=== PATIENT | male | born 1975 | race African-American/Black ===

== ENCOUNTER → 2016-03-22 | Outpatient (CLI) | payer OTHER ==
--- NOTE | 2016-03-22 15:01 | REP ---
Clinical: Syncope. Technique: Grant scale and color Doppler evaluation using linear high frequency transducer Findings: Two-dimensional grant scale and color images demonstrate normal arterial lumen with laminar flow and no appreciable narrowing. Color Doppler interrogation demonstrates normal arterial wave patterns and velocities with no significant spectral broadening. Normal flow direction is appreciated in the bilateral vertebral arteries. RIGHT (cm/s) LEFT (cm/s) ICA peak systolic velocity 99.0 70.6 ICA diastolic velocity 34.0 38.2 ECA peak systolic velocity 78.6 93.2 CCA peak systolic velocity 127.2 111.7 ICA/CCA ratio 0.70 0.63 Impression: No hemodynamically significant areas of narrowing or stenosis appreciated. Based on set standards narrowing falls within the normal range. Signed by Beto Reynolds MD 03/22/2016 02:03 P
== END | disposition home or self-care (01) ==
LOC: M RAD 13:23
PROVIDERS: ATTEND Physician Assistant Medical
DX: R55 Syncope and collapse (principal)

== ENCOUNTER → 2016-04-07 | Outpatient (CLI) | payer OTHER ==
[~2016-04-07] MED LIST: ADV100INH INH; ALBU17IN INH; AMOX500T PO; ASPI81CH32 PO; BENZ100C5 PO; CHLO125TA PO; COMBAER6 INH; HYDR-3713 PO; IBUP-1114 PO; ISON300T4 PO; LISI-538 PO; MAPA500C PO; NICO7DIS23 TD; OMEP40CA2 PO; SUCR1TAB56 PO; VARE05TA PO; VITA50TA43 PO; nicotine gum XX
[2016-04-07 19:08] LABS: ALBUMIN 4.1 GM/DL (3.2-5.2); ALBUMIN/GLOBULIN RATIO 1.14 (1.00-1.93); ALKALINE PHOSPHATASE 47 U/L (45-117); ALT/SGPT 57 U/L (12-78); AST/SGOT 31 U/L (15-37); BILIRUBIN,DIRECT < 0.1 MG/DL (0.0-0.2); BILIRUBIN,TOTAL 0.2 MG/DL (0.2-1.0); TOTAL PROTEIN 7.7 GM/DL (6.4-8.2)
== END | disposition home or self-care (01) ==
LOC: M WUC 11:54
PROVIDERS: ATTEND Physician Assistant Medical
DX: R76.11 Nonspecific reaction to tuberculin skin test without active tuberculosis (principal)

== ENCOUNTER → 2016-04-13 | Outpatient (CLI) | payer OTHER ==
[~2016-04-13] VITALS: Ht 182.9 cm; Wt 81.6 kg
[~2016-04-13] MED LIST changes: +LIDOCAINE 2% INJ 100 MG/5 ML SDV (FOR ANES.) As Ordered ONE; +NS 1,000 ML IV SCH; +PROPOFOL 200 MG/20 ML VIAL As Ordered ONE
--- NOTE | 2016-04-13 13:12 | ROOR ---
Patient Name: Margie Lane Procedure Date: 04/13/2016 12:59 PM Date of : 1975 Age: 40 Room: [facility] Gender: Male Note Status: Finalized Procedure: Upper GI endoscopy Indications: Epigastric abdominal pain, Suspected esophageal reflux Providers: Can BELL MD Referring MD: CHEVY GUSTAFSON MD Requesting Provider: Medicines: Monitored Anesthesia Care Complications: No immediate complications. Long, compliant otherwise normal stomach Procedure: Pre-Anesthesia Assessment: - The heart rate, respiratory rate, oxygen saturations, blood pressure, adequacy of pulmonary ventilation, and response to care were monitored throughout the procedure. The Endoscope was introduced through the mouth, and advanced to the second part of duodenum. The upper GI endoscopy was accomplished without difficulty. The patient tolerated the procedure well. Findings: Very small (insignificant) Hiatal Hernia. The esophagus was normal. The stomach was normal. The examined duodenum was normal. (long, compliant, but otherwise normal stomach) Impression: - Very small (insignificant) Hiatal Hernia. - Normal esophagus. - Normal stomach. - Normal examined duodenum. - No specimens collected. Recommendation: - Continue present medications. - Observe patient's clinical course. - Follow an antireflux regimen. Can Bell MD Can BELL MD 04/13/2016 1:12:23 PM This report has been signed electronically. Number of Addenda: 0 Note Initiated On: 04/13/2016 12:59 PM Estimated Blood Loss: Estimated blood loss: none. Estimated blood loss: none.
[2016-04-13 13:45] VITALS: BP 145/100
== END ==
LOC: M OPP 12:30
PROVIDERS: ATTEND Internal Medicine Gastroenterology
DX: R10.13 Epigastric pain (principal); I10 Essential (primary) hypertension; J45.909 Unspecified asthma, uncomplicated; K21.9 Gastro-esophageal reflux disease without esophagitis; R76.11 Nonspecific reaction to tuberculin skin test without active tuberculosis; Z79.899 Other long term (current) drug therapy

== ENCOUNTER → 2016-04-19 | Outpatient (REF) | payer OTHER ==
[~2016-04-19] MED LIST changes: -LIDOCAINE 2% INJ 100 MG/5 ML SDV (FOR ANES.) As Ordered ONE; -NS 1,000 ML IV SCH; -PROPOFOL 200 MG/20 ML VIAL As Ordered ONE
[2016-04-19 16:49] LABS: ALBUMIN 4.8 GM/DL (3.2-5.2); ALBUMIN/GLOBULIN RATIO 1.2 (1.00-1.93); BILIRUBIN,DIRECT 0.1 MG/DL (0.0-0.2); BILIRUBIN,TOTAL 0.4 MG/DL (0.2-1.0); TOTAL PROTEIN 8.8 GM/DL (6.4-8.2)
== END | disposition home or self-care (01) ==
LOC: M SFHCPLAZ 12:32
PROVIDERS: ATTEND Physician Assistant Medical
DX: R76.11 Nonspecific reaction to tuberculin skin test without active tuberculosis (principal)

== ENCOUNTER → 2016-04-29 | Outpatient (CLI) | payer OTHER ==
[2016-04-29 20:21] LABS: MICROSCOPIC INDICATED? MAN NO (NO)
== END | disposition home or self-care (01) ==
LOC: M WUC 18:16
PROVIDERS: ATTEND Internal Medicine Cardiovascular Disease
DX: I49.3 Ventricular premature depolarization (principal); I10 Essential (primary) hypertension

== ENCOUNTER → 2016-04-30 | Outpatient (REF) | payer OTHER ==
[2016-04-30 12:39] LABS: ALBUMIN 4.8 GM/DL (3.2-5.2); ANION GAP 10 MEQ/L (8-16); BLOOD UREA NITROGEN 17 MG/DL (7-18); CALCIUM LEVEL 9.6 MG/DL (8.5-10.1); CARBON DIOXIDE LEVEL 29 MEQ/L (21-32); CHLORIDE LEVEL 97 MEQ/L (98-107); CREATININE FOR GFR 1.19 MG/DL (0.70-1.30); GLOMERULAR FILTRATION RATE > 60.0 (>60); GLUCOSE, FASTING 108 MG/DL (70-105); MAGNESIUM LEVEL 2.1 MG/DL (1.8-2.4); PHOSPHORUS LEVEL 3.2 MG/DL (2.5-4.9); POTASSIUM SERUM 4.3 MEQ/L (3.5-5.1); SODIUM LEVEL 136 MEQ/L (136-145)
== END | disposition home or self-care (01) ==
LOC: M WUC 11:52
PROVIDERS: ATTEND Internal Medicine Cardiovascular Disease
DX: I49.3 Ventricular premature depolarization (principal); I10 Essential (primary) hypertension

== ENCOUNTER → 2016-05-03 | Outpatient (REF) | payer OTHER | LOC: M SFHCPLAZ 08:21 | PROVIDERS: ATTEND Physician Assistant Medical | DX: Z53.8 Procedure and treatment not carried out for other reasons (principal) ==

== ENCOUNTER 2016-05-06 13:52 | Emergency (ER) | payer OTHER ==
[2016-05-06 15:12] LABS: BASO % 0.5 % (0.0-1.0); EOS # 0.2 K/mm3 (0.0-0.50); EOS % 2.1 % (0.0-3.0); LARGE UNSTAINED CELL # 0.2 K/mm3 (0.0-0.4); LARGE UNSTAINED CELL % 2.9 % (0.0-4.0); LYMPH # 2.6 K/mm3 (1.5-4.5); LYMPH % 36.4 % (24.0-44.0); MEAN CORPUSCULAR HEMOGLOBIN 30.5 pg (27.0-33.0); MEAN CORPUSCULAR HGB CONC 34.5 g/dl (32.0-36.5); MEAN CORPUSCULAR VOLUME 88.5 fl (80.0-96.0); MONO # 0.5 K/mm3 (0.0-0.8); MONO % 7.7 % (0.0-5.0); NEUTROPHILS # 3.6 K/mm3 (1.8-7.7); NEUTROPHILS % 50.5 % (36.0-66.0); PLATELET COUNT, AUTOMATED 195 k/mm3 (150-450); RED CELL DISTRIBUTION WIDTH 12.4 % (11.5-14.5)
[2016-05-06 15:28] LABS: ANION GAP 9 MEQ/L (8-16); BLOOD UREA NITROGEN 17 MG/DL (7-18); CALCIUM LEVEL 9.4 MG/DL (8.5-10.1); CARBON DIOXIDE LEVEL 28 MEQ/L (21-32); CHLORIDE LEVEL 103 MEQ/L (98-107); CREATININE FOR GFR 1.72 MG/DL (0.70-1.30); FREE T4 0.91 NG/DL (0.76-1.46); GLOMERULAR FILTRATION RATE 57.4 (>60); GLUCOSE, FASTING 93 MG/DL (70-105); MAGNESIUM LEVEL 2.2 MG/DL (1.8-2.4); PHOSPHORUS LEVEL 3.6 MG/DL (2.5-4.9); POTASSIUM SERUM 3.9 MEQ/L (3.5-5.1); SODIUM LEVEL 140 MEQ/L (136-145)
--- NOTE | 2016-05-06 16:08 | EDDOCDS ---
Nurse's Notes [facility] Name: Margie Lane Age: 40 yrs Sex: Male : 1975 Arrival Date: 05/06/2016 Time: 13:52 Bed 15 Private MD: Nelida Marquis R Diagnosis: Syncope and collapse Presentation: 05/06 14:01 Presenting complaint: Patient states: last night while riding in the back of a car got j sick to stomach and sweaty then passed out for about 15 minutes. being worked up for cardiac symptoms by Dr Toribio , placed on a holter monitor today.has chest pain every day. Adult Sepsis Screening: The patient does not have new or worsening altered mentation. Patient's respiratory rate is less than 22. Systolic blood pressure is greater than 100. Patient has a qSOFA score of 0- Negative Sepsis Screen. Suicide/Homicide risk assessment- the patient denies having any suicidal and/or homicidal ideations and does not present with any other emotional, behavioral or mental health complaints. Status: Patient is not a director of creative services or dependent. Transition of care: patient was not received from another setting of care. 14:01 Acuity: RAEANN Level 3 [facility] 14:01 Method Of Arrival: Walkin/Carried/Asstd [facility] Triage Assessment: 14:17 General: Appears in no apparent distress, Behavior is appropriate for age, pleasant. kpj Pain: Denies pain. Pt Declines HIV testing. Neurological: Level of Consciousness is awake, alert, Oriented to person, place, time, Gait is steady, Speech is normal, Denies dizziness, headache. Respiratory: Airway is patent Respiratory effort is even, unlabored, Respiratory pattern is regular, symmetrical. Derm: Skin is pink, warm & dry. Historical: - Allergies: No known drug Allergies; - Home Meds: 1. acetaminophen 500 mg Oral tab 2 tabs every 4 hours as needed (Last dose: 05/05/2016) 2. Combivent 20-100 mcg/actuation Inhl three times a day (Last dose: 05/06/2016 08:00) 3. aspirin 81 mg Oral tab 1 tab once daily (Last dose: 05/06/2016 08:00) 4. good sense nicotine 4mg as needed (Last dose: 05/05/2016) 5. nicotine 7 mg/24 hr TD pt24 1 patch once daily does not have one on today 6. albuterol sulfate 90 mcg/actuation Inhl aepb 2 puffs every 4 hours as needed (Last dose: 05/05/2016) 7. omeprazole 40 mg Oral cpDR 1 cap once daily (Last dose: 05/06/2016 08:00) 8. chlorthalidone 12.5 mg daily (Last dose: 05/06/2016 08:00) 9. lisinopril 20 mg oral tab 1 tab twice a day (Last dose: 05/06/2016 08:00) 10. Vitamin B-6 100 mg Oral tab daily (Last dose: 05/06/2016 08:00) 11. Androderm 2 mg/24 hour transdermal pt24 1 patch once daily (Last dose: 05/06/2016 08:00) 12. Advair Diskus 100-50 mcg/dose Inhl dsdv 1 puff 2 times per day (Last dose: 05/06/2016 08:00) 13. Celexa 10 mg Oral tab 2 tabs once daily (Last dose: 05/06/2016 08:00) 14. propranolol 10 mg Oral tab 1 tab twice a day (Last dose: 05/06/2016 08:00) - PMHx: Hypertension; Asthma; GERD; COPD; Tuberculosis; - PSHx: Endoscopy, Upper; - Social history: Smoking status: Patient uses tobacco products, light tobacco smoker. No barriers to communication noted, The patient speaks fluent Bangladeshi. - Family history: Not pertinent. - : The pt / caregiver states he / she is not on anticoagulants. Home medication list is obtained from the patient. - Exposure Risk Screening:: None identified. Screenin:42 Screening information is obtained from the patient. Fall risk: No risks identified. ml6 Assistance ADL's: requires no assistance with activities of daily living. Abuse/DV Screen: The patient / caregiver reports he/she is: not in a situation that causes fear, pain or injury. Nutritional screening: No deficits noted. Advance Directives: Currently, there is no health care proxy. home support is adequate. Assessment: 14:30 General: Appears in no apparent distress, Behavior is anxious, cooperative. Pain: ml6 Denies pain. Neurological: Level of Consciousness is awake, alert, Oriented to person, place, time, Shell Reprint Operator are equal bilaterally Moves all extremities. Cardiovascular: No deficits noted. Capillary refill < 3 seconds is brisk in bilateral fingers toes Heart tones S1 S2 present Edema is absent. Pulses are all present. Rhythm is sinus rhythm No ectopy. Chest pain is denied. Respiratory: No deficits noted. Airway is patent Respiratory effort is even, unlabored, Respiratory pattern is regular, symmetrical, Breath sounds are clear bilaterally. GI: No deficits noted. 15:30 Reassessment: Patient appears in no apparent distress at this time. Patient denies pain ml6 at this time. Patient states feeling better. Patient states symptoms have improved. 16:05 General: Appears in no apparent distress, comfortable, Behavior is appropriate for age, ml6 cooperative. Pain: Denies pain. Neurological: No deficits noted. Level of Consciousness is awake, alert, Oriented to person, place, time, Shell Reprint Operator are equal bilaterally Moves all extremities. Full function Gait is steady, Speech is normal, Facial symmetry appears normal, Pupils are PERRLA. Cardiovascular: No deficits noted. Capillary refill < 3 seconds is brisk in bilateral fingers toes. Respiratory: No deficits noted. Airway is patent Respiratory effort is even, unlabored, Respiratory pattern is regular, symmetrical, Breath sounds are clear bilaterally. GI: No deficits noted. Vital Signs: 13:54 BP 149 / 90; Pulse 95; Resp 18 S; Temp 98.8(O); Pulse Ox 98% on R/A; Weight 79.38 kg gr2 (R); Height 5 ft. 11 in. (180.34 cm) (R); Pain 0/10; 14:26 BP 119 / 78 (auto/); ml6 14:27 Pulse 88 MON; Resp 16; Pulse Ox 98% on R/A; Pain 0/10; ml6 14:37 BP 141 / 92 (auto/); ml6 14:37 Pulse 86 MON; Pulse Ox 99% on R/A; Pain 0/10; ml6 14:52 BP 141 / 94 (auto/); ml6 14:52 Pulse 90 MON; Resp 16; Pulse Ox 98% on R/A; Pain 0/10; ml6 15:07 BP 121 / 80 (auto/); ml6 15:07 Pulse 86 MON; Resp 16; Pulse Ox 96% on R/A; Pain 0/10; ml6 15:22 BP 124 / 77 (auto/); ml6 15:22 Pulse 84 MON; Resp 16; Pulse Ox 96% on R/A; Pain 0/10; ml6 15:37 BP 123 / 82 (auto/); ml6 15:37 Pulse 88 MON; Resp 16; Pulse Ox 97% on R/A; Pain 0/10; ml6 15:42 BP 144 / 87 Supine; Pulse 94; ml6 15:42 BP 148 / 91 Sitting; Pulse 95; ml6 15:42 BP 155 / 93 Standing; Pulse 100; ml6 15:52 BP 132 / 84 (auto/); ml6 15:52 Pulse 86 MON; Resp 16; Pulse Ox 97% on R/A; Pain 0/10; ml6 13:54 Body Mass Index 24.41 (79.38 kg, 180.34 cm) gr2 Vitals: 13:54 Log In Time: May 06, 2016 at 13:54. gr2 14:17 Glucose Measurement deferred in triage. [facility] ED Course: 13:54 Patient visited by Quirino Zuniga. gr2 13:54 Nelida Marquis is Private Physician. gr2 13:54 Patient moved to Waiting gr2 13:55 Patient visited by Quirino Zuniga. gr2 13:56 Patient moved to Pre RCE gr2 14:05 Triage Initiated [facility] 14:20 Patient moved to 15 [facility] 14:25 Jairon Turner DO is PHCP. gk1 14:25 Noe Kim MD is Attending Physician. gk1 14:29 Patient visited by Bettye Lindquist, YVETTE. rs6 14:29 Patient visited by Noe Kim MD. pc 14:29 Pt greeted and oriented to ED. Patient advised of names of staff involved in care, rs6 location of call martin, wait times and NPO status. Patient has correct armband on for positive identification. Placed in gown. Bed in low position. Call light in reach. Side rails up X 1. nurse monitoring on. Pulse ox on. NIBP on. 14:29 EKG done. (by ED staff). Reviewed by Jairon Turner DO. rs6 14:30 Inserted peripheral IV: 18gauge IV in left antecubital area and blood collected. ml6 Patient tolerated the procedure well. 15:00 Patient visited by Lowe, Fran, RN. ml6 15:11 Patient visited by Fran Rutledge RN. ml6 15:16 PHOSPHOROUS LEVEL Sent. ml6 15:41 Patient visited by Fran Rutledge RN. ml6 15:42 The patient / caregiver is instructed regarding the plan of care and ED course. ml6 15:51 Rufino Toribio is Referral Physician. gk1 16:07 Discontinued IV bleeding controlled, pressure dressing applied, No redness/swelling at [facility] site. No procedures done that require assistance. Order Results: Lab Order: Troponin; SPEC'M 05/06/16 14:42 Test: TROPONIN I; Value: < 0.02; Range: < 0.10; Units: NG/ML; Status: F Test Note: ; Troponin I Reference Interval for [employer] LOCI: 99th Percentile= 0.00-0.045 ng/ml Risk Stratification: <= 0.10 ng/ml Decreased Risk for Adverse Clinical Events. 0.10-1.50 ng/ml Increased Risk for Adverse Clinical Events. Evaluation of additional criterion and/or repeat testing in 2-6 hours is suggested to rule out myocardial damage. >= 1.50 ng/ml Indicative of Myocardial Injury. Lab Order: CIP; SPEC'M 05/06/16 14:42 Test: CPK CREATINE PHOSPHOKINASE; Value: 144; Range: 39-308; Units: U/L; Status: F Test: CK-MB VALUE MASS; Value: 1.0; Range: 0.0-3.6; Units: NG/ML; Status: F Test: MB/CK RELATIVE INDEX; Value: 0.69; Range: < OR =4; Status: F Test Note: ; DIAGNOSIS CRITERIA MMB ng/ml Relative Index (RI) NON-AMI < or = 5 N/A CARBAJAL ZONE > 5 < or = 4 AMI > 5 > 4 Lab Order: CBC with Diff; SPEC'M 05/06/16 14:42 Test: WHITE BLOOD COUNT; Value: 7.0; Range: 4.0-10.0; Units: K/mm3; Status: F Test: RED BLOOD COUNT; Value: 4.40; Range: 4.30-6.10; Units: M/mm3; Status: F Test: HEMOGLOBIN; Value: 13.4; Range: 14.0-18.0; Abnormal: Below low normal; Units: g/dl; Status: F Test: HEMATOCRIT; Value: 38.9; Range: 42.0-52.0; Abnormal: Below low normal; Units: %; Status: F Test: MEAN CORPUSCULAR VOLUME; Value: 88.5; Range: 80.0-96.0; Units: fl; Status: F Test: MEAN CORPUSCULAR HEMOGLOBIN; Value: 30.5; Range: 27.0-33.0; Units: pg; Status: F Test: MEAN CORPUSCULAR HGB CONC; Value: 34.5; Range: 32.0-36.5; Units: g/dl; Status: F Test: RED CELL DISTRIBUTION WIDTH; Value: 12.4; Range: 11.5-14.5; Units: %; Status: F Test: PLATELET COUNT, AUTOMATED; Value: 195; Range: 150-450; Units: k/mm3; Status: F Test: NEUTROPHILS %; Value: 50.5; Range: 36.0-66.0; Units: %; Status: F Test: LYMPH %; Value: 36.4; Range: 24.0-44.0; Units: %; Status: F Test: MONO %; Value: 7.7; Range: 0.0-5.0; Abnormal: Above high normal; Units: %; Status: F Test: EOS %; Value: 2.1; Range: 0.0-3.0; Units: %; Status: F Test: BASO %; Value: 0.5; Range: 0.0-1.0; Units: %; Status: F Test: LARGE UNSTAINED CELL %; Value: 2.9; Range: 0.0-4.0; Units: %; Status: F Test: NEUTROPHILS #; Value: 3.6; Range: 1.8-7.7; Units: K/mm3; Status: F Test: LYMPH #; Value: 2.6; Range: 1.5-4.5; Units: K/mm3; Status: F Test: MONO #; Value: 0.5; Range: 0.0-0.8; Units: K/mm3; Status: F Test: EOS #; Value: 0.2; Range: 0.0-0.50; Units: K/mm3; Status: F Test: BASO #; Value: 0.0; Range: 0.0-0.2; Units: K/mm3; Status: F Test: LARGE UNSTAINED CELL #; Value: 0.2; Range: 0.0-0.4; Units: K/mm3; Status: F Lab Order: BMP; SPEC'M 05/06/16 14:42 Test: GLUCOSE, FASTING; Value: 93; Range: 70-105; Units: MG/DL; Status: F Test: BLOOD UREA NITROGEN; Value: 17; Range: 7-18; Units: MG/DL; Status: F Test: CREATININE FOR GFR; Value: 1.72; Range: 0.70-1.30; Abnormal: Above high normal; Units: MG/DL; Status: F Test: GLOMERULAR FILTRATION RATE; Value: 57.4; Range: >60; Abnormal: Below low normal; Status: F Test: SODIUM LEVEL; Value: 140; Range: 136-145; Units: MEQ/L; Status: F Test: POTASSIUM SERUM; Value: 3.9; Range: 3.5-5.1; Units: MEQ/L; Status: F Test: CHLORIDE LEVEL; Value: 103; Range: 98-107; Units: MEQ/L; Status: F Test: CARBON DIOXIDE LEVEL; Value: 28; Range: 21-32; Units: MEQ/L; Status: F Test: ANION GAP; Value: 9; Range: 8-16; Units: MEQ/L; Status: F Test: CALCIUM LEVEL; Value: 9.4; Range: 8.5-10.1; Units: MG/DL; Status: F Test Note: ; Units are mL/min/1.73 m2 Chronic Kidney Disease Staging per NKF: Stage I & II GFR >=60 Normal to Mildly Decreased Stage III GFR 30-59 Moderately Decreased Stage IV GFR 15-29 Severely Decreased Stage V GFR <15 Very Little GFR Left ESRD GFR <15 on LEAD MECHANIC Lab Order: TSH with Free T4; SPEC'M 05/06/16 14:42 Test: THYROID STIMULATING HORMONE; Value: 0.886; Range: 0.358-3.740; Units: uIU/ML; Status: F Test: FREE T4; Value: 0.91; Range: 0.76-1.46; Units: NG/DL; Status: F Lab Order: Magnesium Level; SPEC'M 05/06/16 14:42 Test: MAGNESIUM LEVEL; Value: 2.2; Range: 1.8-2.4; Units: MG/DL; Status: F Lab Order: PHOSPHOROUS LEVEL; SPEC'M 05/06/16 14:42 Test: PHOSPHORUS LEVEL; Value: 3.6; Range: 2.5-4.9; Units: MG/DL; Status: F Outcome: 15:52 Discharge ordered by Provider. gk1 16:07 Discharge Assessment: patient administered narcotics - no. The following High Risk 6 Discharge criteria are identified: None. Discharged to home ambulatory. Condition: improved. Discharge instructions given to patient, Instructed on discharge instructions, follow up and referral plans. medication usage, Demonstrated understanding of instructions, medications, Pt was receptive of discharge instructions/ teaching. No special radiology studies were completed. Property :Personal belongings accompany Pt. 16:08 Patient left the ED. [facility] Signatures: Noe Kim MD MD pc Jobson, Karen RN MELVIN Farn Bosch RN RN ml6 Quirino Zuniga gr2 Bettye Lindquist, YVETTE OPERATIONS MANAGER rs6 Jairon Turner, DO DO gk1 Corrections: (The following items were deleted from the chart) 14:19 14:01 Presenting complaint: Patient states: last night while riding in the back of a [facility] car got sick to stomach and sweaty then passed out for about 15 minutes. being worked up for cardiac symptoms by Dr Toribio , placed on a holter monitor today. [facility]
--- NOTE | 2016-05-06 16:08 | EDDOCDS ---
Physician Documentation [facility] Name: Margie Lane Age: 40 yrs Sex: Male : 1975 Arrival Date: 05/06/2016 Time: 13:52 Bed 15 Private MD: Nelida Marquis R Disposition: 05/06 15:45 I have independently interviewed and examined the patient, and I agree with the pc investigation, diagnosis and treatment plan as documented by the Resident. Disposition: 05/06/16 15:52 Discharged to Home/Self Care. Impression: Syncope and collapse. - Condition is Stable. - Discharge Instructions: Near-Syncope, Syncope, Near-Syncope, Prco-yc-[id number], Syncope, [id number]. - Medication Reconciliation, Local Pharmacy Hours form. - Follow up: Rufino Toribio; When: As needed; Reason: Recheck today's complaints, Continuance of care. - Problem is new. - Symptoms are resolved. - Notes: Syncopal episode without a recurrence. Please follow up with Dr. Toribio's Office (Cardiology). If any worsening symptoms or chest pain, SOB, or seizure-like activity, please return to the ED for further evaluation and/or treatment. Historical: - Allergies: No known drug Allergies; - Home Meds: 1. acetaminophen 500 mg Oral tab 2 tabs every 4 hours as needed (Last dose: 05/05/2016) 2. Combivent 20-100 mcg/actuation Inhl three times a day (Last dose: 05/06/2016 08:00) 3. aspirin 81 mg Oral tab 1 tab once daily (Last dose: 05/06/2016 08:00) 4. good sense nicotine 4mg as needed (Last dose: 05/05/2016) 5. nicotine 7 mg/24 hr TD pt24 1 patch once daily does not have one on today 6. albuterol sulfate 90 mcg/actuation Inhl aepb 2 puffs every 4 hours as needed (Last dose: 05/05/2016) 7. omeprazole 40 mg Oral cpDR 1 cap once daily (Last dose: 05/06/2016 08:00) 8. chlorthalidone 12.5 mg daily (Last dose: 05/06/2016 08:00) 9. lisinopril 20 mg oral tab 1 tab twice a day (Last dose: 05/06/2016 08:00) 10. Vitamin B-6 100 mg Oral tab daily (Last dose: 05/06/2016 08:00) 11. Androderm 2 mg/24 hour transdermal pt24 1 patch once daily (Last dose: 05/06/2016 08:00) 12. Advair Diskus 100-50 mcg/dose Inhl dsdv 1 puff 2 times per day (Last dose: 05/06/2016 08:00) 13. Celexa 10 mg Oral tab 2 tabs once daily (Last dose: 05/06/2016 08:00) 14. propranolol 10 mg Oral tab 1 tab twice a day (Last dose: 05/06/2016 08:00) - PMHx: Hypertension; Asthma; GERD; COPD; Tuberculosis; - PSHx: Endoscopy, Upper; - Social history: Smoking status: Patient uses tobacco products, light tobacco smoker. No barriers to communication noted, The patient speaks fluent Lithuanian. - Family history: Not pertinent. - : The pt / caregiver states he / she is not on anticoagulants. Home medication list is obtained from the patient. - Exposure Risk Screening:: None identified. Vital Signs: 13:54 BP 149 / 90; Pulse 95; Resp 18 S; Temp 98.8(O); Pulse Ox 98% on R/A; Weight 79.38 kg / gr2 175 lbs (R); Height 5 ft. 11 in. (180.34 cm) (R); Pain 0/10; 14:26 BP 119 / 78 (auto/); ml6 14:27 Pulse 88 MON; Resp 16; Pulse Ox 98% on R/A; Pain 0/10; ml6 14:37 BP 141 / 92 (auto/); ml6 14:37 Pulse 86 MON; Pulse Ox 99% on R/A; Pain 0/10; ml6 14:52 BP 141 / 94 (auto/); ml6 14:52 Pulse 90 MON; Resp 16; Pulse Ox 98% on R/A; Pain 0/10; ml6 15:07 BP 121 / 80 (auto/); ml6 15:07 Pulse 86 MON; Resp 16; Pulse Ox 96% on R/A; Pain 0/10; ml6 15:22 BP 124 / 77 (auto/); ml6 15:22 Pulse 84 MON; Resp 16; Pulse Ox 96% on R/A; Pain 0/10; ml6 15:37 BP 123 / 82 (auto/); ml6 15:37 Pulse 88 MON; Resp 16; Pulse Ox 97% on R/A; Pain 0/10; ml6 15:42 BP 144 / 87 Supine; Pulse 94; ml6 15:42 BP 148 / 91 Sitting; Pulse 95; ml6 15:42 BP 155 / 93 Standing; Pulse 100; ml6 15:52 BP 132 / 84 (auto/); ml6 15:52 Pulse 86 MON; Resp 16; Pulse Ox 97% on R/A; Pain 0/10; ml6 13:54 Body Mass Index 24.41 (79.38 kg, 180.34 cm) gr2 MDM: 14:22 ECG WITH READING ER PHYS+CARDIAG ordered. EDMS 15:03 IV Saline Lock ordered. gk1 15:03 Orthostatic VS ordered. gk1 15:03 Glass Tinter/Pulse Ox/q 30 min VS ordered. gk1 15:04 Troponin Ordered. EDMS 15:04 CIP Ordered. EDMS 15:04 CBC with Diff Ordered. EDMS 15:04 BMP Ordered. EDMS 15:04 TSH with Free T4 Ordered. EDMS 15:04 Magnesium Level Ordered. EDMS 15:08 PHOSPHOROUS LEVEL Ordered. EDMS 15:27 Financial registration complete. 15:43 CBC with Diff Reviewed. 1 15:43 BMP Reviewed. gk1 15:43 Troponin Reviewed. gk1 15:43 CIP Reviewed. gk1 15:43 TSH with Free T4 Reviewed. 1 15:43 Magnesium Level Reviewed. 1 15:43 PHOSPHOROUS LEVEL Reviewed. gk1 Signatures: Dispatcher [employer] EDMS Noe Kim MD MD pc Jobson, Karen, RN RN kpFalguni Lam, Reg Reg Fran Rutledge, RN RN ml6 Jairon Turner, DO DO gk1 The chart was reviewed and I authenticate all verbal orders and agree with the evaluation and treatment provided.Corrections: (The following items were deleted from the chart) 15:06 15:04 PHOSPHOROUS LEVEL+LAB ordered. EDMS EDMS MTDD
--- NOTE | 2016-05-07 15:15 | ECGEPIP ---
Stationary ECG Study [facility] - ED Test Date: 2016-05-06 Pat Name: PINKY CANNON Department: Room: - Gender: M Medicaid Service Coordinator: : 1975 Requested By: RAJEEV VO Order Number: [id number] Reading MD: Betzy Granado Measurements Intervals [place] Rate: 89 P: 73 WV: 131 QRS: 68 QRSD: 88 T: 43 QT: 341 QTc: 416 Interpretive Statements SINUS RHYTHM NONSPECIFIC T-WAVE ABNORMALITY DECREASED RATE 01/02/16 Electronically Signed On 05-07-2016 15:15:08 EST by Betzy Granado
--- NOTE | 2016-05-08 17:08 | EDDOCDS ---
Nurse's Notes Name: Margie Lane Age: 40 yrs Sex: Male : 1975 Arrival Date: 05/06/2016 Time: 13:52 Bed 15 Private MD: Nelida Marquis R Diagnosis: Syncope and collapse Presentation: 05/06 14:01 Presenting complaint: Patient states: last night while riding in the back of a car got j sick to stomach and sweaty then passed out for about 15 minutes. being worked up for cardiac symptoms by Dr Toribio , placed on a holter monitor today.has chest pain every day. Adult Sepsis Screening: The patient does not have new or worsening altered mentation. Patient's respiratory rate is less than 22. Systolic blood pressure is greater than 100. Patient has a qSOFA score of 0- Negative Sepsis Screen. Suicide/Homicide risk assessment- the patient denies having any suicidal and/or homicidal ideations and does not present with any other emotional, behavioral or mental health complaints. Status: Patient is not a in service education teacher or dependent. Transition of care: patient was not received from another setting of care. 14:01 Acuity: RAEANN Level 3 [facility] 14:01 Method Of Arrival: Walkin/Carried/Asstd [facility] Triage Assessment: 14:17 General: Appears in no apparent distress, Behavior is appropriate for age, pleasant. kpj Pain: Denies pain. Pt Declines HIV testing. Neurological: Level of Consciousness is awake, alert, Oriented to person, place, time, Gait is steady, Speech is normal, Denies dizziness, headache. Respiratory: Airway is patent Respiratory effort is even, unlabored, Respiratory pattern is regular, symmetrical. Derm: Skin is pink, warm & dry. Historical: - Allergies: No known drug Allergies; - Home Meds: 1. acetaminophen 500 mg Oral tab 2 tabs every 4 hours as needed (Last dose: 05/05/2016) 2. Combivent 20-100 mcg/actuation Inhl three times a day (Last dose: 05/06/2016 08:00) 3. aspirin 81 mg Oral tab 1 tab once daily (Last dose: 05/06/2016 08:00) 4. good sense nicotine 4mg as needed (Last dose: 05/05/2016) 5. nicotine 7 mg/24 hr TD pt24 1 patch once daily does not have one on today 6. albuterol sulfate 90 mcg/actuation Inhl aepb 2 puffs every 4 hours as needed (Last dose: 05/05/2016) 7. omeprazole 40 mg Oral cpDR 1 cap once daily (Last dose: 05/06/2016 08:00) 8. chlorthalidone 12.5 mg daily (Last dose: 05/06/2016 08:00) 9. lisinopril 20 mg oral tab 1 tab twice a day (Last dose: 05/06/2016 08:00) 10. Vitamin B-6 100 mg Oral tab daily (Last dose: 05/06/2016 08:00) 11. Androderm 2 mg/24 hour transdermal pt24 1 patch once daily (Last dose: 05/06/2016 08:00) 12. Advair Diskus 100-50 mcg/dose Inhl dsdv 1 puff 2 times per day (Last dose: 05/06/2016 08:00) 13. Celexa 10 mg Oral tab 2 tabs once daily (Last dose: 05/06/2016 08:00) 14. propranolol 10 mg Oral tab 1 tab twice a day (Last dose: 05/06/2016 08:00) - PMHx: Hypertension; Asthma; GERD; COPD; Tuberculosis; - PSHx: Endoscopy, Upper; - Social history: Smoking status: Patient uses tobacco products, light tobacco smoker. No barriers to communication noted, The patient speaks fluent Cambodian. - Family history: Not pertinent. - : The pt / caregiver states he / she is not on anticoagulants. Home medication list is obtained from the patient. - Exposure Risk Screening:: None identified. Screenin:42 Screening information is obtained from the patient. Fall risk: No risks identified. ml6 Assistance ADL's: requires no assistance with activities of daily living. Abuse/DV Screen: The patient / caregiver reports he/she is: not in a situation that causes fear, pain or injury. Nutritional screening: No deficits noted. Advance Directives: Currently, there is no health care proxy. home support is adequate. Assessment: 14:30 General: Appears in no apparent distress, Behavior is anxious, cooperative. Pain: ml6 Denies pain. Neurological: Level of Consciousness is awake, alert, Oriented to person, place, time, Magnetic Doctor are equal bilaterally Moves all extremities. Cardiovascular: No deficits noted. Capillary refill < 3 seconds is brisk in bilateral fingers toes Heart tones S1 S2 present Edema is absent. Pulses are all present. Rhythm is sinus rhythm No ectopy. Chest pain is denied. Respiratory: No deficits noted. Airway is patent Respiratory effort is even, unlabored, Respiratory pattern is regular, symmetrical, Breath sounds are clear bilaterally. GI: No deficits noted. 15:30 Reassessment: Patient appears in no apparent distress at this time. Patient denies pain ml6 at this time. Patient states feeling better. Patient states symptoms have improved. 16:05 General: Appears in no apparent distress, comfortable, Behavior is appropriate for age, ml6 cooperative. Pain: Denies pain. Neurological: No deficits noted. Level of Consciousness is awake, alert, Oriented to person, place, time, Magnetic Doctor are equal bilaterally Moves all extremities. Full function Gait is steady, Speech is normal, Facial symmetry appears normal, Pupils are PERRLA. Cardiovascular: No deficits noted. Capillary refill < 3 seconds is brisk in bilateral fingers toes. Respiratory: No deficits noted. Airway is patent Respiratory effort is even, unlabored, Respiratory pattern is regular, symmetrical, Breath sounds are clear bilaterally. GI: No deficits noted. Vital Signs: 13:54 BP 149 / 90; Pulse 95; Resp 18 S; Temp 98.8(O); Pulse Ox 98% on R/A; Weight 79.38 kg gr2 (R); Height 5 ft. 11 in. (180.34 cm) (R); Pain 0/10; 14:26 BP 119 / 78 (auto/); ml6 14:27 Pulse 88 MON; Resp 16; Pulse Ox 98% on R/A; Pain 0/10; ml6 14:37 BP 141 / 92 (auto/); ml6 14:37 Pulse 86 MON; Pulse Ox 99% on R/A; Pain 0/10; ml6 14:52 BP 141 / 94 (auto/); ml6 14:52 Pulse 90 MON; Resp 16; Pulse Ox 98% on R/A; Pain 0/10; ml6 15:07 BP 121 / 80 (auto/); ml6 15:07 Pulse 86 MON; Resp 16; Pulse Ox 96% on R/A; Pain 0/10; ml6 15:22 BP 124 / 77 (auto/); ml6 15:22 Pulse 84 MON; Resp 16; Pulse Ox 96% on R/A; Pain 0/10; ml6 15:37 BP 123 / 82 (auto/); ml6 15:37 Pulse 88 MON; Resp 16; Pulse Ox 97% on R/A; Pain 0/10; ml6 15:42 BP 144 / 87 Supine; Pulse 94; ml6 15:42 BP 148 / 91 Sitting; Pulse 95; ml6 15:42 BP 155 / 93 Standing; Pulse 100; ml6 15:52 BP 132 / 84 (auto/); ml6 15:52 Pulse 86 MON; Resp 16; Pulse Ox 97% on R/A; Pain 0/10; ml6 13:54 Body Mass Index 24.41 (79.38 kg, 180.34 cm) gr2 Vitals: 13:54 Log In Time: May 06, 2016 at 13:54. gr2 14:17 Glucose Measurement deferred in triage. [facility] ED Course: 13:54 Patient visited by Quirino Zuniga. gr2 13:54 Nelida Marquis is Private Physician. gr2 13:54 Patient moved to Waiting gr2 13:55 Patient visited by Quirino Zuniga. gr2 13:56 Patient moved to Pre RCE gr2 14:05 Triage Initiated [facility] 14:20 Patient moved to 15 [facility] 14:25 Jairon Turner DO is PHCP. gk1 14:25 Noe Kim MD is Attending Physician. gk1 14:29 Patient visited by Bettye Lindquist, YVETTE. rs6 14:29 Patient visited by Noe Kim MD. pc 14:29 Pt greeted and oriented to ED. Patient advised of names of staff involved in care, rs6 location of call martin, wait times and NPO status. Patient has correct armband on for positive identification. Placed in gown. Bed in low position. Call light in reach. Side rails up X 1. personnel monitor on. Pulse ox on. NIBP on. 14:29 EKG done. (by ED staff). Reviewed by Jairon Turner DO. rs6 14:30 Inserted peripheral IV: 18gauge IV in left antecubital area and blood collected. ml6 Patient tolerated the procedure well. 15:00 Patient visited by Lowe, Fran, RN. ml6 15:11 Patient visited by Fran Rutledge RN. ml6 15:16 PHOSPHOROUS LEVEL Sent. ml6 15:41 Patient visited by Fran Rutledge RN. ml6 15:42 The patient / caregiver is instructed regarding the plan of care and ED course. 6 15:51 Rufino Toribio is Referral Physician. gk1 16:07 Discontinued IV bleeding controlled, pressure dressing applied, No redness/swelling at smallpox hospital site. No procedures done that require assistance. 21:02 T-Sheet-- Draft Copy was scanned into [employer] and attached to record. klr 05/07 09:27 Patient name changed from Margie\S\\S\Ariana\S\ to Margie\S\ \S\Ariana. EDMS 09:30 [facility] Payment Agreement was scanned into [employer] and attached to record. 16:07 EKG-ADULT Returned. EDMS Order Results: Lab Order: Troponin; SPEC'M 05/06/16 14:42 Test: TROPONIN I; Value: < 0.02; Range: < 0.10; Units: NG/ML; Status: F Test Note: ; Troponin I Reference Interval for Siemens [employer] Own [employer] LOCI: 99th Percentile= 0.00-0.045 ng/ml Risk Stratification: <= 0.10 ng/ml Decreased Risk for Adverse Clinical Events. 0.10-1.50 ng/ml Increased Risk for Adverse Clinical Events. Evaluation of additional criterion and/or repeat testing in 2-6 hours is suggested to rule out myocardial damage. >= 1.50 ng/ml Indicative of Myocardial Injury. Lab Order: CIP; SPEC'M 05/06/16 14:42 Test: CPK CREATINE PHOSPHOKINASE; Value: 144; Range: 39-308; Units: U/L; Status: F Test: CK-MB VALUE MASS; Value: 1.0; Range: 0.0-3.6; Units: NG/ML; Status: F Test: MB/CK RELATIVE INDEX; Value: 0.69; Range: < OR =4; Status: F Test Note: ; DIAGNOSIS CRITERIA MMB ng/ml Relative Index (RI) NON-AMI < or = 5 N/A CARBAJAL ZONE > 5 < or = 4 AMI > 5 > 4 Lab Order: CBC with Diff; SPEC'M 05/06/16 14:42 Test: WHITE BLOOD COUNT; Value: 7.0; Range: 4.0-10.0; Units: K/mm3; Status: F Test: RED BLOOD COUNT; Value: 4.40; Range: 4.30-6.10; Units: M/mm3; Status: F Test: HEMOGLOBIN; Value: 13.4; Range: 14.0-18.0; Abnormal: Below low normal; Units: g/dl; Status: F Test: HEMATOCRIT; Value: 38.9; Range: 42.0-52.0; Abnormal: Below low normal; Units: %; Status: F Test: MEAN CORPUSCULAR VOLUME; Value: 88.5; Range: 80.0-96.0; Units: fl; Status: F Test: MEAN CORPUSCULAR HEMOGLOBIN; Value: 30.5; Range: 27.0-33.0; Units: pg; Status: F Test: MEAN CORPUSCULAR HGB CONC; Value: 34.5; Range: 32.0-36.5; Units: g/dl; Status: F Test: RED CELL DISTRIBUTION WIDTH; Value: 12.4; Range: 11.5-14.5; Units: %; Status: F Test: PLATELET COUNT, AUTOMATED; Value: 195; Range: 150-450; Units: k/mm3; Status: F Test: NEUTROPHILS %; Value: 50.5; Range: 36.0-66.0; Units: %; Status: F Test: LYMPH %; Value: 36.4; Range: 24.0-44.0; Units: %; Status: F Test: MONO %; Value: 7.7; Range: 0.0-5.0; Abnormal: Above high normal; Units: %; Status: F Test: EOS %; Value: 2.1; Range: 0.0-3.0; Units: %; Status: F Test: BASO %; Value: 0.5; Range: 0.0-1.0; Units: %; Status: F Test: LARGE UNSTAINED CELL %; Value: 2.9; Range: 0.0-4.0; Units: %; Status: F Test: NEUTROPHILS #; Value: 3.6; Range: 1.8-7.7; Units: K/mm3; Status: F Test: LYMPH #; Value: 2.6; Range: 1.5-4.5; Units: K/mm3; Status: F Test: MONO #; Value: 0.5; Range: 0.0-0.8; Units: K/mm3; Status: F Test: EOS #; Value: 0.2; Range: 0.0-0.50; Units: K/mm3; Status: F Test: BASO #; Value: 0.0; Range: 0.0-0.2; Units: K/mm3; Status: F Test: LARGE UNSTAINED CELL #; Value: 0.2; Range: 0.0-0.4; Units: K/mm3; Status: F Lab Order: [facility]; SPEC'M 05/06/16 14:42 Test: GLUCOSE, FASTING; Value: 93; Range: 70-105; Units: MG/DL; Status: F Test: BLOOD UREA NITROGEN; Value: 17; Range: 7-18; Units: MG/DL; Status: F Test: CREATININE FOR GFR; Value: 1.72; Range: 0.70-1.30; Abnormal: Above high normal; Units: MG/DL; Status: F Test: GLOMERULAR FILTRATION RATE; Value: 57.4; Range: >60; Abnormal: Below low normal; Status: F Test: SODIUM LEVEL; Value: 140; Range: 136-145; Units: MEQ/L; Status: F Test: POTASSIUM SERUM; Value: 3.9; Range: 3.5-5.1; Units: MEQ/L; Status: F Test: CHLORIDE LEVEL; Value: 103; Range: 98-107; Units: MEQ/L; Status: F Test: CARBON DIOXIDE LEVEL; Value: 28; Range: 21-32; Units: MEQ/L; Status: F Test: ANION GAP; Value: 9; Range: 8-16; Units: MEQ/L; Status: F Test: CALCIUM LEVEL; Value: 9.4; Range: 8.5-10.1; Units: MG/DL; Status: F Test Note: ; Units are mL/min/1.73 m2 Chronic Kidney Disease Staging per NKF: Stage I & II GFR >=60 Normal to Mildly Decreased Stage III GFR 30-59 Moderately Decreased Stage IV GFR 15-29 Severely Decreased Stage V GFR <15 Very Little GFR Left ESRD GFR <15 on A AND P TECHNICIAN Lab Order: TSH with Free T4; SPEC'M 05/06/16 14:42 Test: THYROID STIMULATING HORMONE; Value: 0.886; Range: 0.358-3.740; Units: uIU/ML; Status: F Test: FREE T4; Value: 0.91; Range: 0.76-1.46; Units: NG/DL; Status: F Lab Order: Magnesium Level; SPEC'M 05/06/16 14:42 Test: MAGNESIUM LEVEL; Value: 2.2; Range: 1.8-2.4; Units: MG/DL; Status: F Lab Order: PHOSPHOROUS LEVEL; SPEC'M 05/06/16 14:42 Test: PHOSPHORUS LEVEL; Value: 3.6; Range: 2.5-4.9; Units: MG/DL; Status: F Radiology Order: EKG-ADULT Test: EKG-ADULT REASON FOR EXAMINATION: Syncope; Stationary ECG Study; [facility] - ED; ; Test Date: 2016-05-06; Pat Name: MARGIE LANE Department:; Room: -; Gender: M Nuclear Radiologist: kenzie; : 1975 Requested By: RAJEEV VO; Order Number: [id number] Reading MD: Betzy Granado; Measurements; Intervals [place]; Rate: 89 P: 73; DE: 131 QRS: 68; QRSD: 88 T: 43; QT: 341; QTc: 416; Interpretive Statements; SINUS RHYTHM; NONSPECIFIC T-WAVE ABNORMALITY; DECREASED RATE 01/02/16; Electronically Signed On 05-07-2016 15:15:08 EST by Betzy Granado; Outcome: 05/06 15:52 Discharge ordered by Provider. gk1 16:07 Discharge Assessment: patient administered narcotics - no. The following High Risk ml6 Discharge criteria are identified: None. Discharged to home ambulatory. Condition: improved. Discharge instructions given to patient, Instructed on discharge instructions, follow up and referral plans. medication usage, Demonstrated understanding of instructions, medications, Pt was receptive of discharge instructions/ teaching. No special radiology studies were completed. Property :Personal belongings accompany Pt. 16:08 Patient left the ED. ml6 Signatures: Dispatcher [employer] EDNoe Santana MD MD pc Jobson, Karen, RN RN [facility] Falguni Hobbs, Reg Reg Fran Sandoval RN RN ml6 Quirino Zuniga gr2 Bettye Lindquist, YVETTE CONTACT LENS MANUFACTURER rs6 Celena Carson Gurpreet, DO DO gk1 Corrections: (The following items were deleted from the chart) 14:19 14:01 Presenting complaint: Patient states: last night while riding in the back of a [facility] car got sick to stomach and sweaty then passed out for about 15 minutes. being worked up for cardiac symptoms by Dr Toribio , placed on a holter monitor today. [facility] Chart Complete MTDD
--- NOTE | 2016-05-08 17:08 | EDDOCDS ---
Physician Documentation [facility] Name: Margie Lane Age: 40 yrs Sex: Male : 1975 Arrival Date: 05/06/2016 Time: 13:52 Bed 15 Private MD: Nelida Marquis R Disposition: 05/06 15:45 I have independently interviewed and examined the patient, and I agree with the pc investigation, diagnosis and treatment plan as documented by the Resident. Disposition: 05/06/16 15:52 Discharged to Home/Self Care. Impression: Syncope and collapse. - Condition is Stable. - Discharge Instructions: Near-Syncope, Syncope, Near-Syncope, [id number], Syncope, [id number]. - Medication Reconciliation, Local Pharmacy Hours form. - Follow up: Rufino Toribio; When: As needed; Reason: Recheck today's complaints, Continuance of care. - Problem is new. - Symptoms are resolved. - Notes: Syncopal episode without a recurrence. Please follow up with Dr. Toribio's Office (Cardiology). If any worsening symptoms or chest pain, SOB, or seizure-like activity, please return to the ED for further evaluation and/or treatment. Historical: - Allergies: No known drug Allergies; - Home Meds: 1. acetaminophen 500 mg Oral tab 2 tabs every 4 hours as needed (Last dose: 05/05/2016) 2. Combivent 20-100 mcg/actuation Inhl three times a day (Last dose: 05/06/2016 08:00) 3. aspirin 81 mg Oral tab 1 tab once daily (Last dose: 05/06/2016 08:00) 4. good sense nicotine 4mg as needed (Last dose: 05/05/2016) 5. nicotine 7 mg/24 hr TD pt24 1 patch once daily does not have one on today 6. albuterol sulfate 90 mcg/actuation Inhl aepb 2 puffs every 4 hours as needed (Last dose: 05/05/2016) 7. omeprazole 40 mg Oral cpDR 1 cap once daily (Last dose: 05/06/2016 08:00) 8. chlorthalidone 12.5 mg daily (Last dose: 05/06/2016 08:00) 9. lisinopril 20 mg oral tab 1 tab twice a day (Last dose: 05/06/2016 08:00) 10. Vitamin B-6 100 mg Oral tab daily (Last dose: 05/06/2016 08:00) 11. Androderm 2 mg/24 hour transdermal pt24 1 patch once daily (Last dose: 05/06/2016 08:00) 12. Advair Diskus 100-50 mcg/dose Inhl dsdv 1 puff 2 times per day (Last dose: 05/06/2016 08:00) 13. Celexa 10 mg Oral tab 2 tabs once daily (Last dose: 05/06/2016 08:00) 14. propranolol 10 mg Oral tab 1 tab twice a day (Last dose: 05/06/2016 08:00) - PMHx: Hypertension; Asthma; GERD; COPD; Tuberculosis; - PSHx: Endoscopy, Upper; - Social history: Smoking status: Patient uses tobacco products, light tobacco smoker. No barriers to communication noted, The patient speaks fluent Lithuanian. - Family history: Not pertinent. - : The pt / caregiver states he / she is not on anticoagulants. Home medication list is obtained from the patient. - Exposure Risk Screening:: None identified. Vital Signs: 13:54 BP 149 / 90; Pulse 95; Resp 18 S; Temp 98.8(O); Pulse Ox 98% on R/A; Weight 79.38 kg / gr2 175 lbs (R); Height 5 ft. 11 in. (180.34 cm) (R); Pain 0/10; 14:26 BP 119 / 78 (auto/); ml6 14:27 Pulse 88 MON; Resp 16; Pulse Ox 98% on R/A; Pain 0/10; ml6 14:37 BP 141 / 92 (auto/); ml6 14:37 Pulse 86 MON; Pulse Ox 99% on R/A; Pain 0/10; ml6 14:52 BP 141 / 94 (auto/); ml6 14:52 Pulse 90 MON; Resp 16; Pulse Ox 98% on R/A; Pain 0/10; ml6 15:07 BP 121 / 80 (auto/); ml6 15:07 Pulse 86 MON; Resp 16; Pulse Ox 96% on R/A; Pain 0/10; ml6 15:22 BP 124 / 77 (auto/); ml6 15:22 Pulse 84 MON; Resp 16; Pulse Ox 96% on R/A; Pain 0/10; ml6 15:37 BP 123 / 82 (auto/); ml6 15:37 Pulse 88 MON; Resp 16; Pulse Ox 97% on R/A; Pain 0/10; ml6 15:42 BP 144 / 87 Supine; Pulse 94; ml6 15:42 BP 148 / 91 Sitting; Pulse 95; ml6 15:42 BP 155 / 93 Standing; Pulse 100; ml6 15:52 BP 132 / 84 (auto/); ml6 15:52 Pulse 86 MON; Resp 16; Pulse Ox 97% on R/A; Pain 0/10; ml6 13:54 Body Mass Index 24.41 (79.38 kg, 180.34 cm) gr2 MDM: 14:22 ECG WITH READING ER PHYS+CARDIAG ordered. EDMS 15:03 IV Saline Lock ordered. gk1 15:03 Orthostatic VS ordered. gk1 15:03 Modeling Instructor/Pulse Ox/q 30 min VS ordered. gk1 15:04 Troponin Ordered. EDMS 15:04 CIP Ordered. EDMS 15:04 CBC with Diff Ordered. EDMS 15:04 BMP Ordered. EDMS 15:04 TSH with Free T4 Ordered. EDMS 15:04 Magnesium Level Ordered. EDMS 15:08 PHOSPHOROUS LEVEL Ordered. EDMS 15:27 Financial registration complete. 15:43 CBC with Diff Reviewed. gk1 15:43 BMP Reviewed. gk1 15:43 Troponin Reviewed. gk1 15:43 CIP Reviewed. gk1 15:43 TSH with Free T4 Reviewed. 1 15:43 Magnesium Level Reviewed. 1 15:43 PHOSPHOROUS LEVEL Reviewed. gk1 21:02 T-Sheet-- Draft Copy was scanned into [employer] and attached to record. klr 05/07 09:30 [facility] Payment Agreement was scanned into [employer] and attached to record. Signatures: Dispatcher [employer] EDMS Noe Kim MD MD pc Jobson, Karen, RN RN kpFalguni Lam, Reg Reg lg Fran Rutledge, RN RN ml6 Celena Carson Jairon Hines, DO gk1 The chart was reviewed and I authenticate all verbal orders and agree with the evaluation and treatment provided.Corrections: (The following items were deleted from the chart) 05/06 15:06 15:04 PHOSPHOROUS LEVEL+LAB ordered. EDMS EDMS Attachments: 21:02 T-Sheet-- Draft Copy klr 05/07 09:30 [facility] Payment Agreement lg Chart Complete MTDD
--- NOTE | 2016-05-08 17:09 | EDDOCDS ---
Physician Documentation [facility] Name: Margie Lane Age: 40 yrs Sex: Male : 1975 Arrival Date: 05/06/2016 Time: 13:52 Bed 15 Private MD: Nelida Marquis R Disposition: 05/06 15:45 I have independently interviewed and examined the patient, and I agree with the pc investigation, diagnosis and treatment plan as documented by the Resident. Disposition: 05/06/16 15:52 Discharged to Home/Self Care. Impression: Syncope and collapse. - Condition is Stable. - Discharge Instructions: Near-Syncope, Syncope, Near-Syncope, [id number], Syncope, [id number]-[id number]. - Medication Reconciliation, Local Pharmacy Hours form. - Follow up: Rufino Toribio; When: As needed; Reason: Recheck today's complaints, Continuance of care. - Problem is new. - Symptoms are resolved. - Notes: Syncopal episode without a recurrence. Please follow up with Dr. Toribio's Office (Cardiology). If any worsening symptoms or chest pain, SOB, or seizure-like activity, please return to the ED for further evaluation and/or treatment. Historical: - Allergies: No known drug Allergies; - Home Meds: 1. acetaminophen 500 mg Oral tab 2 tabs every 4 hours as needed (Last dose: 05/05/2016) 2. Combivent 20-100 mcg/actuation Inhl three times a day (Last dose: 05/06/2016 08:00) 3. aspirin 81 mg Oral tab 1 tab once daily (Last dose: 05/06/2016 08:00) 4. good sense nicotine 4mg as needed (Last dose: 05/05/2016) 5. nicotine 7 mg/24 hr TD pt24 1 patch once daily does not have one on today 6. albuterol sulfate 90 mcg/actuation Inhl aepb 2 puffs every 4 hours as needed (Last dose: 05/05/2016) 7. omeprazole 40 mg Oral cpDR 1 cap once daily (Last dose: 05/06/2016 08:00) 8. chlorthalidone 12.5 mg daily (Last dose: 05/06/2016 08:00) 9. lisinopril 20 mg oral tab 1 tab twice a day (Last dose: 05/06/2016 08:00) 10. Vitamin B-6 100 mg Oral tab daily (Last dose: 05/06/2016 08:00) 11. Androderm 2 mg/24 hour transdermal pt24 1 patch once daily (Last dose: 05/06/2016 08:00) 12. Advair Diskus 100-50 mcg/dose Inhl dsdv 1 puff 2 times per day (Last dose: 05/06/2016 08:00) 13. Celexa 10 mg Oral tab 2 tabs once daily (Last dose: 05/06/2016 08:00) 14. propranolol 10 mg Oral tab 1 tab twice a day (Last dose: 05/06/2016 08:00) - PMHx: Hypertension; Asthma; GERD; COPD; Tuberculosis; - PSHx: Endoscopy, Upper; - Social history: Smoking status: Patient uses tobacco products, light tobacco smoker. No barriers to communication noted, The patient speaks fluent Jamaican. - Family history: Not pertinent. - : The pt / caregiver states he / she is not on anticoagulants. Home medication list is obtained from the patient. - Exposure Risk Screening:: None identified. Vital Signs: 13:54 BP 149 / 90; Pulse 95; Resp 18 S; Temp 98.8(O); Pulse Ox 98% on R/A; Weight 79.38 kg / gr2 175 lbs (R); Height 5 ft. 11 in. (180.34 cm) (R); Pain 0/10; 14:26 BP 119 / 78 (auto/); ml6 14:27 Pulse 88 MON; Resp 16; Pulse Ox 98% on R/A; Pain 0/10; ml6 14:37 BP 141 / 92 (auto/); ml6 14:37 Pulse 86 MON; Pulse Ox 99% on R/A; Pain 0/10; ml6 14:52 BP 141 / 94 (auto/); ml6 14:52 Pulse 90 MON; Resp 16; Pulse Ox 98% on R/A; Pain 0/10; ml6 15:07 BP 121 / 80 (auto/); ml6 15:07 Pulse 86 MON; Resp 16; Pulse Ox 96% on R/A; Pain 0/10; ml6 15:22 BP 124 / 77 (auto/); ml6 15:22 Pulse 84 MON; Resp 16; Pulse Ox 96% on R/A; Pain 0/10; ml6 15:37 BP 123 / 82 (auto/); ml6 15:37 Pulse 88 MON; Resp 16; Pulse Ox 97% on R/A; Pain 0/10; ml6 15:42 BP 144 / 87 Supine; Pulse 94; ml6 15:42 BP 148 / 91 Sitting; Pulse 95; ml6 15:42 BP 155 / 93 Standing; Pulse 100; ml6 15:52 BP 132 / 84 (auto/); ml6 15:52 Pulse 86 MON; Resp 16; Pulse Ox 97% on R/A; Pain 0/10; ml6 13:54 Body Mass Index 24.41 (79.38 kg, 180.34 cm) gr2 MDM: 14:22 ECG WITH READING ER PHYS+CARDIAG ordered. EDMS 15:03 IV Saline Lock ordered. gk1 15:03 Orthostatic VS ordered. gk1 15:03 Safety Attendant/Pulse Ox/q 30 min VS ordered. gk1 15:04 Troponin Ordered. EDMS 15:04 CIP Ordered. EDMS 15:04 CBC with Diff Ordered. EDMS 15:04 BMP Ordered. EDMS 15:04 TSH with Free T4 Ordered. EDMS 15:04 Magnesium Level Ordered. EDMS 15:08 PHOSPHOROUS LEVEL Ordered. EDMS 15:27 Financial registration complete. 15:43 CBC with Diff Reviewed. gk1 15:43 BMP Reviewed. gk1 15:43 Troponin Reviewed. gk1 15:43 CIP Reviewed. gk1 15:43 TSH with Free T4 Reviewed. 1 15:43 Magnesium Level Reviewed. 1 15:43 PHOSPHOROUS LEVEL Reviewed. gk1 21:02 T-Sheet-- Draft Copy was scanned into [employer] and attached to record. klr 05/07 09:30 [facility] Payment Agreement was scanned into [employer] and attached to record. Signatures: Dispatcher [employer] EDMS Noe Kim MD MD pc Jobson, Karen, RN RN kpFalguni Lam, Reg Reg lg Fran Rutledge, RN RN ml6 Celena Carson Jairon Hines, DO gk1 The chart was reviewed and I authenticate all verbal orders and agree with the evaluation and treatment provided.Corrections: (The following items were deleted from the chart) 05/06 15:06 15:04 PHOSPHOROUS LEVEL+LAB ordered. EDMS EDMS Attachments: 21:02 T-Sheet-- Draft Copy klr 05/07 09:30 [facility] [place] lg Chart Complete MTDD
--- NOTE | 2016-05-08 22:05 | EDDOCDS ---
Physician Documentation [facility] Name: Margie Lane Age: 40 yrs Sex: Male : 1975 Arrival Date: 05/06/2016 Time: 13:52 Bed 15 Private MD: Nelida Marquis R Disposition: 05/06 15:45 I have independently interviewed and examined the patient, and I agree with the pc investigation, diagnosis and treatment plan as documented by the Resident. Disposition: 05/06/16 15:52 Discharged to Home/Self Care. Impression: Syncope and collapse. - Condition is Stable. - Discharge Instructions: Near-Syncope, Syncope, Near-Syncope, [id number], Syncope, [id number]. - Medication Reconciliation, Local Pharmacy Hours form. - Follow up: Rufino Toribio; When: As needed; Reason: Recheck today's complaints, Continuance of care. - Problem is new. - Symptoms are resolved. - Notes: Syncopal episode without a recurrence. Please follow up with Dr. Toribio's Office (Cardiology). If any worsening symptoms or chest pain, SOB, or seizure-like activity, please return to the ED for further evaluation and/or treatment. Historical: - Allergies: No known drug Allergies; - Home Meds: 1. acetaminophen 500 mg Oral tab 2 tabs every 4 hours as needed (Last dose: 05/05/2016) 2. Combivent 20-100 mcg/actuation Inhl three times a day (Last dose: 05/06/2016 08:00) 3. aspirin 81 mg Oral tab 1 tab once daily (Last dose: 05/06/2016 08:00) 4. good sense nicotine 4mg as needed (Last dose: 05/05/2016) 5. nicotine 7 mg/24 hr TD pt24 1 patch once daily does not have one on today 6. albuterol sulfate 90 mcg/actuation Inhl aepb 2 puffs every 4 hours as needed (Last dose: 05/05/2016) 7. omeprazole 40 mg Oral cpDR 1 cap once daily (Last dose: 05/06/2016 08:00) 8. chlorthalidone 12.5 mg daily (Last dose: 05/06/2016 08:00) 9. lisinopril 20 mg oral tab 1 tab twice a day (Last dose: 05/06/2016 08:00) 10. Vitamin B-6 100 mg Oral tab daily (Last dose: 05/06/2016 08:00) 11. Androderm 2 mg/24 hour transdermal pt24 1 patch once daily (Last dose: 05/06/2016 08:00) 12. Advair Diskus 100-50 mcg/dose Inhl dsdv 1 puff 2 times per day (Last dose: 05/06/2016 08:00) 13. Celexa 10 mg Oral tab 2 tabs once daily (Last dose: 05/06/2016 08:00) 14. propranolol 10 mg Oral tab 1 tab twice a day (Last dose: 05/06/2016 08:00) - PMHx: Hypertension; Asthma; GERD; COPD; Tuberculosis; - PSHx: Endoscopy, Upper; - Social history: Smoking status: Patient uses tobacco products, light tobacco smoker. No barriers to communication noted, The patient speaks fluent Mauritian. - Family history: Not pertinent. - : The pt / caregiver states he / she is not on anticoagulants. Home medication list is obtained from the patient. - Exposure Risk Screening:: None identified. Vital Signs: 13:54 BP 149 / 90; Pulse 95; Resp 18 S; Temp 98.8(O); Pulse Ox 98% on R/A; Weight 79.38 kg / gr2 175 lbs (R); Height 5 ft. 11 in. (180.34 cm) (R); Pain 0/10; 14:26 BP 119 / 78 (auto/); ml6 14:27 Pulse 88 MON; Resp 16; Pulse Ox 98% on R/A; Pain 0/10; ml6 14:37 BP 141 / 92 (auto/); ml6 14:37 Pulse 86 MON; Pulse Ox 99% on R/A; Pain 0/10; ml6 14:52 BP 141 / 94 (auto/); ml6 14:52 Pulse 90 MON; Resp 16; Pulse Ox 98% on R/A; Pain 0/10; ml6 15:07 BP 121 / 80 (auto/); ml6 15:07 Pulse 86 MON; Resp 16; Pulse Ox 96% on R/A; Pain 0/10; ml6 15:22 BP 124 / 77 (auto/); ml6 15:22 Pulse 84 MON; Resp 16; Pulse Ox 96% on R/A; Pain 0/10; ml6 15:37 BP 123 / 82 (auto/); ml6 15:37 Pulse 88 MON; Resp 16; Pulse Ox 97% on R/A; Pain 0/10; ml6 15:42 BP 144 / 87 Supine; Pulse 94; ml6 15:42 BP 148 / 91 Sitting; Pulse 95; ml6 15:42 BP 155 / 93 Standing; Pulse 100; ml6 15:52 BP 132 / 84 (auto/); ml6 15:52 Pulse 86 MON; Resp 16; Pulse Ox 97% on R/A; Pain 0/10; ml6 13:54 Body Mass Index 24.41 (79.38 kg, 180.34 cm) gr2 MDM: 14:22 ECG WITH READING ER PHYS+CARDIAG ordered. EDMS 15:03 IV Saline Lock ordered. gk1 15:03 Orthostatic VS ordered. gk1 15:03 Wire Stripping Machine Operator/Pulse Ox/q 30 min VS ordered. gk1 15:04 Troponin Ordered. EDMS 15:04 CIP Ordered. EDMS 15:04 CBC with Diff Ordered. EDMS 15:04 BMP Ordered. EDMS 15:04 TSH with Free T4 Ordered. EDMS 15:04 Magnesium Level Ordered. EDMS 15:08 PHOSPHOROUS LEVEL Ordered. EDMS 15:27 Financial registration complete. 15:43 CBC with Diff Reviewed. gk1 15:43 BMP Reviewed. gk1 15:43 Troponin Reviewed. gk1 15:43 CIP Reviewed. gk1 15:43 TSH with Free T4 Reviewed. 1 15:43 Magnesium Level Reviewed. 1 15:43 PHOSPHOROUS LEVEL Reviewed. gk1 21:02 T-Sheet-- Draft Copy was scanned into [employer] and attached to record. klr 05/07 09:30 [facility] Payment Agreement was scanned into [employer] and attached to record. Signatures: Dispatcher [employer] EDMS Noe Kim MD MD pc Jobson, Karen, RN RN kpFalguni Lam, Reg Reg lg Fran Rutledge, RN RN ml6 Celena Carson Jairon Hines, DO gk1 The chart was reviewed and I authenticate all verbal orders and agree with the evaluation and treatment provided.Corrections: (The following items were deleted from the chart) 05/06 15:06 15:04 PHOSPHOROUS LEVEL+LAB ordered. EDMS EDMS Attachments: 21:02 T-Sheet-- Draft Copy klr 05/07 09:30 [facility] [place] Payment Agreement lg Chart Complete MTDD
--- NOTE | 2016-05-08 22:05 | EDDOCDS ---
Physician Documentation [facility] Name: Margie Lane Age: 40 yrs Sex: Male : 1975 Arrival Date: 05/06/2016 Time: 13:52 Bed 15 Private MD: Nelida Marquis R Disposition: 05/06 15:45 I have independently interviewed and examined the patient, and I agree with the pc investigation, diagnosis and treatment plan as documented by the Resident. Disposition: 05/06/16 15:52 Discharged to Home/Self Care. Impression: Syncope and collapse. - Condition is Stable. - Discharge Instructions: Near-Syncope, Syncope, Near-Syncope, [id number], Syncope, Dvjx-br-[id number]. - Medication Reconciliation, Local Pharmacy Hours form. - Follow up: Rufino Toribio; When: As needed; Reason: Recheck today's complaints, Continuance of care. - Problem is new. - Symptoms are resolved. - Notes: Syncopal episode without a recurrence. Please follow up with Dr. Toribio's Office (Cardiology). If any worsening symptoms or chest pain, SOB, or seizure-like activity, please return to the ED for further evaluation and/or treatment. Historical: - Allergies: No known drug Allergies; - Home Meds: 1. acetaminophen 500 mg Oral tab 2 tabs every 4 hours as needed (Last dose: 05/05/2016) 2. Combivent 20-100 mcg/actuation Inhl three times a day (Last dose: 05/06/2016 08:00) 3. aspirin 81 mg Oral tab 1 tab once daily (Last dose: 05/06/2016 08:00) 4. good sense nicotine 4mg as needed (Last dose: 05/05/2016) 5. nicotine 7 mg/24 hr TD pt24 1 patch once daily does not have one on today 6. albuterol sulfate 90 mcg/actuation Inhl aepb 2 puffs every 4 hours as needed (Last dose: 05/05/2016) 7. omeprazole 40 mg Oral cpDR 1 cap once daily (Last dose: 05/06/2016 08:00) 8. chlorthalidone 12.5 mg daily (Last dose: 05/06/2016 08:00) 9. lisinopril 20 mg oral tab 1 tab twice a day (Last dose: 05/06/2016 08:00) 10. Vitamin B-6 100 mg Oral tab daily (Last dose: 05/06/2016 08:00) 11. Androderm 2 mg/24 hour transdermal pt24 1 patch once daily (Last dose: 05/06/2016 08:00) 12. Advair Diskus 100-50 mcg/dose Inhl dsdv 1 puff 2 times per day (Last dose: 05/06/2016 08:00) 13. Celexa 10 mg Oral tab 2 tabs once daily (Last dose: 05/06/2016 08:00) 14. propranolol 10 mg Oral tab 1 tab twice a day (Last dose: 05/06/2016 08:00) - PMHx: Hypertension; Asthma; GERD; COPD; Tuberculosis; - PSHx: Endoscopy, Upper; - Social history: Smoking status: Patient uses tobacco products, light tobacco smoker. No barriers to communication noted, The patient speaks fluent South Korean. - Family history: Not pertinent. - : The pt / caregiver states he / she is not on anticoagulants. Home medication list is obtained from the patient. - Exposure Risk Screening:: None identified. Vital Signs: 13:54 BP 149 / 90; Pulse 95; Resp 18 S; Temp 98.8(O); Pulse Ox 98% on R/A; Weight 79.38 kg / gr2 175 lbs (R); Height 5 ft. 11 in. (180.34 cm) (R); Pain 0/10; 14:26 BP 119 / 78 (auto/); ml6 14:27 Pulse 88 MON; Resp 16; Pulse Ox 98% on R/A; Pain 0/10; ml6 14:37 BP 141 / 92 (auto/); ml6 14:37 Pulse 86 MON; Pulse Ox 99% on R/A; Pain 0/10; ml6 14:52 BP 141 / 94 (auto/); ml6 14:52 Pulse 90 MON; Resp 16; Pulse Ox 98% on R/A; Pain 0/10; ml6 15:07 BP 121 / 80 (auto/); ml6 15:07 Pulse 86 MON; Resp 16; Pulse Ox 96% on R/A; Pain 0/10; ml6 15:22 BP 124 / 77 (auto/); ml6 15:22 Pulse 84 MON; Resp 16; Pulse Ox 96% on R/A; Pain 0/10; ml6 15:37 BP 123 / 82 (auto/); ml6 15:37 Pulse 88 MON; Resp 16; Pulse Ox 97% on R/A; Pain 0/10; ml6 15:42 BP 144 / 87 Supine; Pulse 94; ml6 15:42 BP 148 / 91 Sitting; Pulse 95; ml6 15:42 BP 155 / 93 Standing; Pulse 100; ml6 15:52 BP 132 / 84 (auto/); ml6 15:52 Pulse 86 MON; Resp 16; Pulse Ox 97% on R/A; Pain 0/10; ml6 13:54 Body Mass Index 24.41 (79.38 kg, 180.34 cm) gr2 MDM: 14:22 ECG WITH READING ER PHYS+CARDIAG ordered. EDMS 15:03 IV Saline Lock ordered. gk1 15:03 Orthostatic VS ordered. gk1 15:03 Laser Technician/Pulse Ox/q 30 min VS ordered. gk1 15:04 Troponin Ordered. EDMS 15:04 CIP Ordered. EDMS 15:04 CBC with Diff Ordered. EDMS 15:04 BMP Ordered. EDMS 15:04 TSH with Free T4 Ordered. EDMS 15:04 Magnesium Level Ordered. EDMS 15:08 PHOSPHOROUS LEVEL Ordered. EDMS 15:27 Financial registration complete. 15:43 CBC with Diff Reviewed. gk1 15:43 BMP Reviewed. gk1 15:43 Troponin Reviewed. gk1 15:43 CIP Reviewed. gk1 15:43 TSH with Free T4 Reviewed. 1 15:43 Magnesium Level Reviewed. 1 15:43 PHOSPHOROUS LEVEL Reviewed. gk1 21:02 T-Sheet-- Draft Copy was scanned into [email or web address] and attached to record. klr 05/07 09:30 [facility] Payment Agreement was scanned into [email or web address] and attached to record. Signatures: Dispatcher [employer] EDMS Noe Kim MD MD pc Jobson, Karen, RN RN kpFalguni Lam, Reg Reg lg Fran Rutledge, RN RN ml6 Celena Carson Jairon Hines, DO gk1 The chart was reviewed and I authenticate all verbal orders and agree with the evaluation and treatment provided.Corrections: (The following items were deleted from the chart) 05/06 15:06 15:04 PHOSPHOROUS LEVEL+LAB ordered. EDMS EDMS Attachments: 21:02 T-Sheet-- Draft Copy klr 05/07 09:30 [facility] [place] Payment Agreement lg Chart Complete MTDD
--- NOTE | 2016-05-08 22:05 | EDDOCDS ---
Nurse's Notes [facility] Name: Margie Lane Age: 40 yrs Sex: Male : 1975 Arrival Date: 05/06/2016 Time: 13:52 Bed 15 Private MD: Nelida Marquis R Diagnosis: Syncope and collapse Presentation: 05/06 14:01 Presenting complaint: Patient states: last night while riding in the back of a car got j sick to stomach and sweaty then passed out for about 15 minutes. being worked up for cardiac symptoms by Dr Toribio , placed on a holter monitor today.has chest pain every day. Adult Sepsis Screening: The patient does not have new or worsening altered mentation. Patient's respiratory rate is less than 22. Systolic blood pressure is greater than 100. Patient has a qSOFA score of 0- Negative Sepsis Screen. Suicide/Homicide risk assessment- the patient denies having any suicidal and/or homicidal ideations and does not present with any other emotional, behavioral or mental health complaints. 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 Transition of care: patient was not received from another setting of care. 14:01 Acuity: [facility] 14:01 Method Of Arrival: Walkin[facility]ried[facility] Triage Assessment: 14:17 General: Appears in no apparent distress, Behavior is appropriate for age, pleasant. kpj Pain: Denies pain. Pt Declines HIV testing. Neurological: Level of Consciousness is awake, alert, Oriented to person, place, time, Gait is steady, Speech is normal, Denies dizziness, headache. Respiratory: Airway is patent Respiratory effort is even, unlabored, Respiratory pattern is regular, symmetrical. Derm: Skin is pink, warm & dry. Historical: - Allergies: No known drug Allergies; - Home Meds: 1. acetaminophen 500 mg Oral tab 2 tabs every 4 hours as needed (Last dose: 05/05/2016) 2. Combivent 20-100 mcg/actuation Inhl three times a day (Last dose: 05/06/2016 08:00) 3. aspirin 81 mg Oral tab 1 tab once daily (Last dose: 05/06/2016 08:00) 4. good sense nicotine 4mg as needed (Last dose: 05/05/2016) 5. nicotine 7 mg/24 hr TD pt24 1 patch once daily does not have one on today 6. albuterol sulfate 90 mcg/actuation Inhl aepb 2 puffs every 4 hours as needed (Last dose: 05/05/2016) 7. omeprazole 40 mg Oral cpDR 1 cap once daily (Last dose: 05/06/2016 08:00) 8. chlorthalidone 12.5 mg daily (Last dose: 05/06/2016 08:00) 9. lisinopril 20 mg oral tab 1 tab twice a day (Last dose: 05/06/2016 08:00) 10. Vitamin B-6 100 mg Oral tab daily (Last dose: 05/06/2016 08:00) 11. Androderm 2 mg/24 hour transdermal pt24 1 patch once daily (Last dose: 05/06/2016 08:00) 12. Advair Diskus 100-50 mcg/dose Inhl dsdv 1 puff 2 times per day (Last dose: 05/06/2016 08:00) 13. Celexa 10 mg Oral tab 2 tabs once daily (Last dose: 05/06/2016 08:00) 14. propranolol 10 mg Oral tab 1 tab twice a day (Last dose: 05/06/2016 08:00) - PMHx: Hypertension; Asthma; GERD; COPD; Tuberculosis; - PSHx: Endoscopy, Upper; - Social history: Smoking status: Patient uses tobacco products, light tobacco smoker. No barriers to communication noted, The patient speaks fluent Finnish. - Family history: Not pertinent. - : The pt / caregiver states he / she is not on anticoagulants. Home medication list is obtained from the patient. - Exposure Risk Screening:: None identified. Screenin:42 Screening information is obtained from the patient. Fall risk: No risks identified. ml6 Assistance ADL's: requires no assistance with activities of daily living. Abuse/DV Screen: The patient / caregiver reports he/she is: not in a situation that causes fear, pain or injury. Nutritional screening: No deficits noted. Advance Directives: Currently, there is no health care proxy. home support is adequate. Assessment: 14:30 General: Appears in no apparent distress, Behavior is anxious, cooperative. Pain: ml6 Denies pain. Neurological: Level of Consciousness is awake, alert, Oriented to person, place, time, Cop Breaker are equal bilaterally Moves all extremities. Cardiovascular: No deficits noted. Capillary refill < 3 seconds is brisk in bilateral fingers toes Heart tones S1 S2 present Edema is absent. Pulses are all present. Rhythm is sinus rhythm No ectopy. Chest pain is denied. Respiratory: No deficits noted. Airway is patent Respiratory effort is even, unlabored, Respiratory pattern is regular, symmetrical, Breath sounds are clear bilaterally. GI: No deficits noted. 15:30 Reassessment: Patient appears in no apparent distress at this time. Patient denies pain ml6 at this time. Patient states feeling better. Patient states symptoms have improved. 16:05 General: Appears in no apparent distress, comfortable, Behavior is appropriate for age, ml6 cooperative. Pain: Denies pain. Neurological: No deficits noted. Level of Consciousness is awake, alert, Oriented to person, place, time, Cop Breaker are equal bilaterally Moves all extremities. Full function Gait is steady, Speech is normal, Facial symmetry appears normal, Pupils are PERRLA. Cardiovascular: No deficits noted. Capillary refill < 3 seconds is brisk in bilateral fingers toes. Respiratory: No deficits noted. Airway is patent Respiratory effort is even, unlabored, Respiratory pattern is regular, symmetrical, Breath sounds are clear bilaterally. GI: No deficits noted. Vital Signs: 13:54 BP 149 / 90; Pulse 95; Resp 18 S; Temp 98.8(O); Pulse Ox 98% on R/A; Weight 79.38 kg gr2 (R); Height 5 ft. 11 in. (180.34 cm) (R); Pain 0/10; 14:26 BP 119 / 78 (auto/); ml6 14:27 Pulse 88 MON; Resp 16; Pulse Ox 98% on R/A; Pain 0/10; ml6 14:37 BP 141 / 92 (auto/); ml6 14:37 Pulse 86 MON; Pulse Ox 99% on R/A; Pain 0/10; ml6 14:52 BP 141 / 94 (auto/); ml6 14:52 Pulse 90 MON; Resp 16; Pulse Ox 98% on R/A; Pain 0/10; ml6 15:07 BP 121 / 80 (auto/); ml6 15:07 Pulse 86 MON; Resp 16; Pulse Ox 96% on R/A; Pain 0/10; ml6 15:22 BP 124 / 77 (auto/); ml6 15:22 Pulse 84 MON; Resp 16; Pulse Ox 96% on R/A; Pain 0/10; ml6 15:37 BP 123 / 82 (auto/); ml6 15:37 Pulse 88 MON; Resp 16; Pulse Ox 97% on R/A; Pain 0/10; ml6 15:42 BP 144 / 87 Supine; Pulse 94; ml6 15:42 BP 148 / 91 Sitting; Pulse 95; ml6 15:42 BP 155 / 93 Standing; Pulse 100; ml6 15:52 BP 132 / 84 (auto/); ml6 15:52 Pulse 86 MON; Resp 16; Pulse Ox 97% on R/A; Pain 0/10; ml6 13:54 Body Mass Index 24.41 (79.38 kg, 180.34 cm) gr2 Vitals: 13:54 Log In Time: May 06, 2016 at 13:54. gr2 14:17 Glucose Measurement deferred [facility] Course: 13:54 Patient visited by Quirino Zuniga. gr2 13:54 Nelida Marquis is Private Physician. gr2 13:54 Patient moved to Waiting gr2 13:55 Patient visited by Quirino Zuniga. gr2 13:56 Patient moved to Pre RCE gr2 14:05 [facility]riage [facility]iated [facility] 14:20 Patient moved to [facility] 14:25 Jairon Turner DO is PHCP. gk1 14:25 Noe Kim MD is Attending Physician. gk1 14:29 Patient visited by Bettye Lindquist, YVETTE. rs6 14:29 Patient visited by Noe Kim MD. pc 14:29 Pt greeted and oriented to ED. Patient advised of names of staff involved in care, rs6 location of call martin, wait times and NPO status. Patient has correct armband on for positive identification. Placed in gown. Bed in low position. Call light in reach. Side rails up X 1. telemetry monitor on. Pulse ox on. NIBP on. 14:29 EKG done. (by ED staff). Reviewed by Jairon Turner DO. rs6 14:30 Inserted peripheral IV: 18gauge IV in left antecubital area and blood collected. ml6 Patient tolerated the procedure well. 15:00 Patient visited by Lowe, Fran, RN. ml6 15:11 Patient visited by Fran Rutledge RN. ml6 15:16 PHOSPHOROUS LEVEL Sent. ml6 15:41 Patient visited by Fran Rutledge RN. ml6 15:42 The patient / caregiver is instructed regarding the plan of care and ED course. 6 15:51 Rufino Toribio is Referral Physician. gk1 16:07 Discontinued IV bleeding controlled, pressure dressing applied, No redness/swelling at [facility] site. No procedures done that require assistance. 21:02 T-Sheet-- Draft Copy was scanned into [employer] and attached to record. klr 05/07 09:27 Patient name changed from Margie\S\\S\Ariana\S\ to Margie\S\ \S\Ariana. EDMS 09:30 [facility] Payment Agreement was scanned into [employer] and attached to record. 16:07 EKG-ADULT Returned. EDMS Order Results: Lab Order: Troponin; SPEC'M 05/06/16 14:42 Test: TROPONIN I; Value: < 0.02; Range: < 0.10; Units: NG/ML; Status: F Test Note: ; Troponin I Reference Interval for Siemens [facility] [employer] LOCI: 99th Percentile= 0.00-0.045 ng/ml Risk Stratification: <= 0.10 ng/ml Decreased Risk for Adverse Clinical Events. 0.10-1.50 ng/ml Increased Risk for Adverse Clinical Events. Evaluation of additional criterion and/or repeat testing in 2-6 hours is suggested to rule out myocardial damage. >= 1.50 ng/ml Indicative of Myocardial Injury. Lab Order: CIP; SPEC'M 05/06/16 14:42 Test: CPK CREATINE PHOSPHOKINASE; Value: 144; Range: 39-308; Units: U/L; Status: F Test: CK-MB VALUE MASS; Value: 1.0; Range: 0.0-3.6; Units: NG/ML; Status: F Test: MB/CK RELATIVE INDEX; Value: 0.69; Range: < OR =4; Status: F Test Note: ; DIAGNOSIS CRITERIA MMB ng/ml Relative Index (RI) NON-AMI < or = 5 N/A CARBAJAL ZONE > 5 < or = 4 AMI > 5 > 4 Lab Order: CBC with Diff; SPEC'M 05/06/16 14:42 Test: WHITE BLOOD COUNT; Value: 7.0; Range: 4.0-10.0; Units: K/mm3; Status: F Test: RED BLOOD COUNT; Value: 4.40; Range: 4.30-6.10; Units: M/mm3; Status: F Test: HEMOGLOBIN; Value: 13.4; Range: 14.0-18.0; Abnormal: Below low normal; Units: g/dl; Status: F Test: HEMATOCRIT; Value: 38.9; Range: 42.0-52.0; Abnormal: Below low normal; Units: %; Status: F Test: MEAN CORPUSCULAR VOLUME; Value: 88.5; Range: 80.0-96.0; Units: fl; Status: F Test: MEAN CORPUSCULAR HEMOGLOBIN; Value: 30.5; Range: 27.0-33.0; Units: pg; Status: F Test: MEAN CORPUSCULAR HGB CONC; Value: 34.5; Range: 32.0-36.5; Units: g/dl; Status: F Test: RED CELL DISTRIBUTION WIDTH; Value: 12.4; Range: 11.5-14.5; Units: %; Status: F Test: PLATELET COUNT, AUTOMATED; Value: 195; Range: 150-450; Units: k/mm3; Status: F Test: NEUTROPHILS %; Value: 50.5; Range: 36.0-66.0; Units: %; Status: F Test: LYMPH %; Value: 36.4; Range: 24.0-44.0; Units: %; Status: F Test: MONO %; Value: 7.7; Range: 0.0-5.0; Abnormal: Above high normal; Units: %; Status: F Test: EOS %; Value: 2.1; Range: 0.0-3.0; Units: %; Status: F Test: BASO %; Value: 0.5; Range: 0.0-1.0; Units: %; Status: F Test: LARGE UNSTAINED CELL %; Value: 2.9; Range: 0.0-4.0; Units: %; Status: F Test: NEUTROPHILS #; Value: 3.6; Range: 1.8-7.7; Units: K/mm3; Status: F Test: LYMPH #; Value: 2.6; Range: 1.5-4.5; Units: K/mm3; Status: F Test: MONO #; Value: 0.5; Range: 0.0-0.8; Units: K/mm3; Status: F Test: EOS #; Value: 0.2; Range: 0.0-0.50; Units: K/mm3; Status: F Test: BASO #; Value: 0.0; Range: 0.0-0.2; Units: K/mm3; Status: F Test: LARGE UNSTAINED CELL #; Value: 0.2; Range: 0.0-0.4; Units: K/mm3; Status: F Lab Order: [facility]; SPEC'M 05/06/16 14:42 Test: GLUCOSE, FASTING; Value: 93; Range: 70-105; Units: MG/DL; Status: F Test: BLOOD UREA NITROGEN; Value: 17; Range: 7-18; Units: MG/DL; Status: F Test: CREATININE FOR GFR; Value: 1.72; Range: 0.70-1.30; Abnormal: Above high normal; Units: MG/DL; Status: F Test: GLOMERULAR FILTRATION RATE; Value: 57.4; Range: >60; Abnormal: Below low normal; Status: F Test: SODIUM LEVEL; Value: 140; Range: 136-145; Units: MEQ/L; Status: F Test: POTASSIUM SERUM; Value: 3.9; Range: 3.5-5.1; Units: MEQ/L; Status: F Test: CHLORIDE LEVEL; Value: 103; Range: 98-107; Units: MEQ/L; Status: F Test: CARBON DIOXIDE LEVEL; Value: 28; Range: 21-32; Units: MEQ/L; Status: F Test: ANION GAP; Value: 9; Range: 8-16; Units: MEQ/L; Status: F Test: CALCIUM LEVEL; Value: 9.4; Range: 8.5-10.1; Units: MG/DL; Status: F Test Note: ; Units are mL/min/1.73 m2 Chronic Kidney Disease Staging per NKF: Stage I & II GFR >=60 Normal to Mildly Decreased Stage III GFR 30-59 Moderately Decreased Stage IV GFR 15-29 Severely Decreased Stage V GFR <15 Very Little GFR Left ESRD GFR <15 on KITCHEN WORKER Lab Order: TSH with Free T4; SPEC'M 05/06/16 14:42 Test: THYROID STIMULATING HORMONE; Value: 0.886; Range: 0.358-3.740; Units: uIU/ML; Status: F Test: FREE T4; Value: 0.91; Range: 0.76-1.46; Units: NG/DL; Status: F Lab Order: Magnesium Level; SPEC'M 05/06/16 14:42 Test: MAGNESIUM LEVEL; Value: 2.2; Range: 1.8-2.4; Units: MG/DL; Status: F Lab Order: PHOSPHOROUS LEVEL; SPEC'M 05/06/16 14:42 Test: PHOSPHORUS LEVEL; Value: 3.6; Range: 2.5-4.9; Units: MG/DL; Status: F Radiology Order: EKG-ADULT Test: EKG-ADULT REASON FOR EXAMINATION: Syncope; Stationary ECG Study; [facility] - ED; ; Test Date: 2016-05-06; Pat Name: MARGIE LANE Department:; Room: -; Gender: M Addictions Counselor Assistant: kenzie; : 1975 Requested By: RAJEEV VO; Order Number: [id number] Reading MD: Betzy Granado; Measurements; Intervals [place]; Rate: 89 P: 73; DC: 131 QRS: 68; QRSD: 88 T: 43; QT: 341; QTc: 416; Interpretive Statements; SINUS RHYTHM; NONSPECIFIC T-WAVE ABNORMALITY; DECREASED RATE 01/02/16; Electronically Signed On 05-07-2016 15:15:08 EST by Betzy Granado; Outcome: 05/06 15:52 Discharge ordered by Provider. gk1 16:07 Discharge Assessment: patient administered narcotics - no. The following High Risk ml6 Discharge criteria are identified: None. Discharged to home ambulatory. Condition: improved. Discharge instructions given to patient, Instructed on discharge instructions, follow up and referral plans. medication usage, Demonstrated understanding of instructions, medications, Pt was receptive of discharge instructions/ teaching. No special radiology studies were completed. Property :Personal belongings accompany Pt. 16:08 Patient left the ED. ml6 Signatures: Dispatcher [employer] EDNoe Santana MD MD pc Jobson, Karen, RN RN [facility] Falguni Hobbs, Reg Reg Fran Sandoval RN RN ml6 Quirino Zuniga gr2 Bettye Lindquist, YVETTE WIND POWER PROJECT MANAGER rs6 Celena Carson Gurpreet, DO DO gk1 Corrections: (The following items were deleted from the chart) 14:19 14:01 Presenting complaint: Patient states: last night while riding in the back [facility] car got sick to stomach and sweaty then passed out for about 15 minutes. being worked up for cardiac symptoms by Dr Toribio , placed on a holter monitor today. [facility] Chart Complete MTDD
== END 2016-05-06 16:08 | disposition home or self-care (01) ==
LOC: M ED 13:52
DX: R52 Pain, unspecified (principal); I10 Essential (primary) hypertension; J45.909 Unspecified asthma, uncomplicated; K21.9 Gastro-esophageal reflux disease without esophagitis; J44.9 Chronic obstructive pulmonary disease, unspecified; A15.9 Respiratory tuberculosis unspecified; F17.200 Nicotine dependence, unspecified, uncomplicated; Z79.82 Long term (current) use of aspirin; Z79.51 Long term (current) use of inhaled steroids; Z79.899 Other long term (current) drug therapy

== ENCOUNTER → 2016-05-18 | Outpatient (CLI) | payer OTHER ==
[2016-05-18 20:35] LABS: ALBUMIN 4.5 GM/DL (3.2-5.2); ALBUMIN/GLOBULIN RATIO 1.32 (1.00-1.93); ALKALINE PHOSPHATASE 52 U/L (45-117); ALT/SGPT 39 U/L (12-78); AST/SGOT 24 U/L (15-37); BILIRUBIN,DIRECT < 0.1 MG/DL (0.0-0.2); BILIRUBIN,TOTAL 0.3 MG/DL (0.2-1.0); TOTAL PROTEIN 7.9 GM/DL (6.4-8.2)
== END ==
LOC: M WUC 17:04
PROVIDERS: ATTEND Physician Assistant Medical
DX: R76.11 Nonspecific reaction to tuberculin skin test without active tuberculosis (principal)

== ENCOUNTER → 2016-06-07 | Outpatient (CLI) | payer OTHER ==
[2016-06-07 14:36] LABS: ALBUMIN 4.6 GM/DL (3.2-5.2); ALBUMIN/GLOBULIN RATIO 1.18 (1.00-1.93); ALKALINE PHOSPHATASE 61 U/L (45-117); ALT/SGPT 38 U/L (12-78); AST/SGOT 21 U/L (15-37); BILIRUBIN,DIRECT < 0.1 MG/DL (0.0-0.2); BILIRUBIN,TOTAL 0.3 MG/DL (0.2-1.0); TOTAL PROTEIN 8.5 GM/DL (6.4-8.2)
== END ==
LOC: M WUC 11:33
PROVIDERS: ATTEND Physician Assistant Medical
DX: R76.11 Nonspecific reaction to tuberculin skin test without active tuberculosis (principal)

== ENCOUNTER → 2016-06-08 | Outpatient (CLI) | payer OTHER ==
--- NOTE | 2016-06-09 06:53 | EEG ---
DATE OF EE06/08/2016 REFERRING PHYSICIAN: ZENY Avilez DIAGNOSIS: Syncope. EEG NUMBER: [id number]. HISTORY: Patient is a 41-year-old with episodes of spells of getting sweaty and passing out. This EEG was done to rule out epileptic potential. He is currently taking lisinopril, Prilosec, isoniazid, propranolol, Celexa, etc. TECHNICAL DESCRIPTION: This digital EEG was recorded by 21 scalp, ear and two EKG electrodes and was reviewed in bipolar and referential montages following reformatting in 10-20 international electrode placement system. INTERPRETATION: The patient was noted to be in awake and drowsy states during this EEG. Resting awake background rhythm consisted of well-formed posterior dominant rhythm with anterior/posterior gradient comprising of 10 Hz alpha activity measuring 15-60 microvolts in amplitude which was symmetric and reactive to eye opening. Anteriorly, low voltage mixed frequencies were noted. Attenuation of posterior dominant rhythm was seen during transition into drowsiness. Stage 1 and 2 sleep were reviewed and were symmetric bilaterally. Hyperventilation elicited mild theta slowing of background rhythm. Photic stimulation at 3-30 Hz elicited symmetric photic driving, especially at mid frequencies. EKG revealed normal sinus rhythm. No focal, lateralizing or epileptiform abnormalities were seen. No clinical or electrographic seizures were recorded. CONCLUSION: This EEG in awake, drowsy states, stage 1 and 2 sleep is within normal limits. This dictation thank you very much
== END ==
LOC: M SLEEP 10:49
PROVIDERS: ATTEND Physician Assistant Medical
DX: R55 Syncope and collapse (principal)

== ENCOUNTER → 2016-06-24 | Outpatient (CLI) | payer OTHER ==
[~2016-06-24] MED LIST changes: +NICO7DIS2 TD; -NICO7DIS23 TD
[2016-06-24 20:09] LABS: ALBUMIN 4.2 GM/DL (3.2-5.2); ALBUMIN/GLOBULIN RATIO 1.17 (1.00-1.93); ALKALINE PHOSPHATASE 54 U/L (45-117); ALT/SGPT 31 U/L (12-78); AST/SGOT 16 U/L (15-37); BILIRUBIN,DIRECT < 0.1 MG/DL (0.0-0.2); BILIRUBIN,TOTAL 0.2 MG/DL (0.2-1.0); TOTAL PROTEIN 7.8 GM/DL (6.4-8.2)
== END ==
LOC: M WUC 17:11
PROVIDERS: ATTEND Physician Assistant Medical
DX: R76.11 Nonspecific reaction to tuberculin skin test without active tuberculosis (principal)

== ENCOUNTER → 2016-07-29 | Outpatient (REF) ==
--- NOTE | 2016-07-29 10:23 | REP ---
Clinical: Pain and disability. Technique: AP, lateral, coned-down views of the lumbosacral spine. Findings: Very subtle chronic-appearing levoconvex scoliosis is suggested. Alignment and lordosis is otherwise maintained. Hypertrophic facet arthropathy along with endplate sclerosis and minimal disc space narrowing at the L4-5 and L5-L1 levels noted. No acute fracture / compression injury or subluxation. Impression: Mild degenerative changes at the L4-5 and L5-L1 levels. Signed by Beto Reynolds MD 07/29/2016 10:15 A
== END ==
LOC: M SMT 09:15
PROVIDERS: ATTEND Internal Medicine
DX: Z02.71 Encounter for disability determination (principal)

== ENCOUNTER → 2016-08-05 | Outpatient (REF) | payer OTHER ==
[2016-08-05 12:01] LABS: ALBUMIN 4.1 GM/DL (3.2-5.2); ALBUMIN/GLOBULIN RATIO 1.14 (1.00-1.93); ALKALINE PHOSPHATASE 47 U/L (45-117); ALT/SGPT 34 U/L (12-78); AST/SGOT 21 U/L (15-37); BILIRUBIN,DIRECT < 0.1 MG/DL (0.0-0.2); BILIRUBIN,TOTAL 0.2 MG/DL (0.2-1.0); TOTAL PROTEIN 7.7 GM/DL (6.4-8.2)
== END ==
LOC: M SFHCPLAZ 08:55
PROVIDERS: ATTEND Physician Assistant Medical
DX: R76.11 Nonspecific reaction to tuberculin skin test without active tuberculosis (principal)

== ENCOUNTER → 2016-10-05 | Outpatient (REF) | payer OTHER ==
[~2016-10-05] MED LIST changes: +AVEL1TAB3 PO; +TESS100C PO
[2016-10-05 13:42] LABS: ALBUMIN 4.4 GM/DL (3.2-5.2); ALBUMIN/GLOBULIN RATIO 1.33 (1.00-1.93); BILIRUBIN,DIRECT 0.1 MG/DL (0.0-0.2); BILIRUBIN,TOTAL 0.4 MG/DL (0.2-1.0); TOTAL PROTEIN 7.7 GM/DL (6.4-8.2)
== END ==
LOC: M SFHCPLAZ 09:59
PROVIDERS: ATTEND Physician Assistant Medical
DX: R76.11 Nonspecific reaction to tuberculin skin test without active tuberculosis (principal)

== ENCOUNTER → 2016-10-15 | Outpatient (CLI) | payer MEDICAID, OTHER, SELFPAY ==
--- NOTE | 2016-10-15 14:16 | REP ---
THORACOLUMBAR SPINE, TWO VIEWS: The lowest intervertebral disc is assumed to be the L5-S1 intervertebral disc. There is no acute fracture or subluxation. The L4-5 and L5-S1 intervertebral discs are decreased in height consistent with disc degeneration. IMPRESSION: Degenerative change as described above. Signed by Jean Ballard MD 10/15/2016 02:20 P
== END ==
LOC: M RAD 11:57
PROVIDERS: ATTEND Physician Assistant Medical
DX: M54.5 Low back pain (principal)

== ENCOUNTER 2016-11-03 09:03 | Emergency (ER) | payer MEDICAID ==
[~2016-11-03] VITALS: Ht 172.7 cm; Wt 79.5 kg
[~2016-11-03 09:03] MED LIST changes: -AVEL1TAB3 PO; -TESS100C PO
--- NOTE | 2016-11-03 10:48 | REP ---
Chest x-ray: Two views. History: Cough and fever. Comparison study: December 12, 2015. Findings: There is a small ill-defined 1.5 cm density in the right lower lung zone which may be infiltrate or nodule. Remaining lung mariano are clear. Pleural angles are sharp. Heart is not enlarged. Pulmonary vasculature is not increased. No significant bony abnormality is seen. Impression: New 1.5 cm ill-defined density right mid lung zone most likely infiltrate. Follow-up chest x-ray recommended to document clearing. Signed by Madi De Anda MD 11/03/2016 03:20 P
[2016-11-03] MEDS ORDERED: AVEL1TAB3 PO (10:53)
[2016-11-03] MEDS ORDERED: TESS100C PO (10:53)
[2016-11-03 11:01] VITALS: BP 140/78
--- NOTE | 2016-11-06 10:27 | ED PDOC ---
Post-Departure Follow-Up asiya zabala faxed formal report of cxr for fu. additionally pt sent certified letter. Ron Bell MD Nov 06, 2016 10:27
== END 2016-11-03 11:03 | disposition home or self-care (01) ==
LOC: M ED 09:03
DX: J18.9 Pneumonia, unspecified organism (principal); R09.1 Pleurisy; J45.909 Unspecified asthma, uncomplicated; F17.200 Nicotine dependence, unspecified, uncomplicated; Z79.899 Other long term (current) drug therapy; Z79.82 Long term (current) use of aspirin; Z79.51 Long term (current) use of inhaled steroids

== ENCOUNTER → 2016-11-11 | Outpatient (REF) | payer MEDICAID, OTHER ==
[~2016-11-11] MED LIST changes: +AVEL1TAB3 PO; +TESS100C PO
[2016-11-11 18:29] LABS: ALBUMIN 3.8 GM/DL (3.2-5.2); BILIRUBIN,DIRECT 0.1 MG/DL (0.0-0.2); BILIRUBIN,TOTAL 0.2 MG/DL (0.2-1.0); TOTAL PROTEIN 7.6 GM/DL (6.4-8.2)
== END ==
LOC: M SFHCPLAZ 14:25
PROVIDERS: ATTEND Physician Assistant Medical
DX: R76.11 Nonspecific reaction to tuberculin skin test without active tuberculosis (principal)

== ENCOUNTER → 2016-12-09 | Outpatient (CLI) | payer MEDICAID, OTHER ==
--- NOTE | 2016-12-10 00:40 | REP ---
Clinical: Chest pain. Pneumonia . Comparison: 11/03/2016 . Technique: PA and lateral. Findings: The mediastinum and cardiac silhouette are normal. The lung mariano are clear and without acute consolidation, effusion, or pneumothorax. Previous identified opacity in the right mid and lower lung zones have resolved. The skeletal structures are intact and normal. Impression: 1. No acute cardiopulmonary process. 2. Previously noted opacity/infiltrates have resolved. Signed by Beto Reynolds MD 12/10/2016 12:32 A
== END ==
LOC: M RAD 09:43
PROVIDERS: ATTEND Physician Assistant Medical
DX: J18.1 Lobar pneumonia, unspecified organism (principal)

== ENCOUNTER 2017-02-28 11:48 | Day surgery (SDC) | payer OTHER ==
[~2017-02-28] VITALS: Ht 180.3 cm; Wt 82.6 kg
[2017-02-28] MEDS ORDERED: PROPOFOL 200 MG/20 ML VIAL As Ordered ONE (12:51)
[2017-02-28] MEDS ORDERED: fentaNYL 100 MCG/2 ML INJECTION (J3010) As Ordered ONE (12:51)
[2017-02-28] MEDS ORDERED: LIDOCAINE 2% INJ 100 MG/5 ML SDV (FOR ANES.) As Ordered ONE (12:51)
[2017-02-28] MEDS ORDERED: MIDAZOLAM INJ 2 MG/2 ML VIAL (J2250) As Ordered ONE (12:51)
[2017-02-28] MEDS ORDERED: PROP10TA56 (12:57)
[2017-02-28] MEDS ORDERED: ATEN25TA (12:57)
[2017-02-28] MEDS ORDERED: CITA10TA5 (12:57)
[2017-02-28] MEDS ORDERED: MELO7.5T7 PO (13:00)
[2017-02-28] MEDS ORDERED: BACL10TA2 PO (13:00)
[2017-02-28] MEDS ORDERED: IMIT50TA PO (13:01)
[2017-02-28] MEDS ORDERED: BREO1INH INH (13:02)
[2017-02-28] MEDS ORDERED: LIDOCAINE 1% MDV 20ML VIAL As Ordered ONE (13:39)
[2017-02-28 16:15] VITALS: BP 156/112
--- NOTE | 2017-02-28 16:27 | RO ---
DATE OF PROCEDURE: 02/28/2017 TITLE OF PROCEDURE: Implantation of loop recorder. IMPLANTING RANGE AID: Dr. Rufino Toribio ANESTHESIOLOGIST: Dr. Solis Zamudio PREOPERATIVE DIAGNOSIS: Recurrent syncopal spells not yet diagnosed. POSTOPERATIVE DIAGNOSIS: Recurrent syncopal spells not yet diagnosed. TYPE OF ANESTHESIA: Monitored local anesthesia. CLINICAL SUMMARY: This 41-year-old, single, unemployed gentleman living with his sister here in [place]. He is known to my cardiology practice with chronic essential hypertension, frequent isolated PVCs and recurrent episodes of syncope/collapse. The patient has a history of gastroesophageal reflux disease and alcoholism/substance abuse. Has had a day a negative cardiac workup including EKG showing sinus rhythm, echocardiogram showing normal heart size, wall thickness and wall motion, normal appearing valvular structures and function. Treadmill study 05/18/2016 showing fair exercise tolerance with no inducible chest pain despite heart rate of 159, blood pressure 160/90. No EKG ST/T wave abnormalities or arrhythmia. Holter monitor 02/17/2017 showed sinus rhythm averaging 102 beats per minute with rare PAC but frequent isolated PVCs averaging 93 per hour but no more complex rhythm disturbance. No significant bradyarrhythmia or atrioventricular (AV) block. The event monitor 05/06/2016 to 06/05/2016 worn for 30 days, underlying rhythm was sinus with occasional to frequent PVCs. Episodes of flutters, heart racing and dizziness did not correlate with any significant change. 02/24/2017 was referred back to my practice because of recurrent episode of unheralded collapse sustaining blunt trauma to his right arm. Mesomorphic black male lay comfortably. Heart rate 84 beats per minute and regular. Blood pressure 160/110 sitting. Respiratory rate 16. Normal oral moisture. No central cyanosis. Trachea midline. Thyroid not enlarged. Normal neck veins. Normal chest configuration and expansion with no abnormal adventitious sounds. Apical impulse medial to the midclavicular line fifth intercostal space with normal respiratory splitting of S2, S4 gallop but no audible murmur. Peripheral pulses were symmetrical and normal. No dependent edema. Chest x-ray 12/09/2016 showed a normal appearing heart size and cardiac silhouette with clear lung mariano. EKG 02/24/2017 showed sinus rhythm at 86 beats per minute but was within normal limits. Chemistry in the past has shown electrolyte balance with slightly elevated serum creatinine, normal ultra sensitive TSH. DESCRIPTION OF PROCEDURE: In the fasting state following Ancef 2 grams IV premedication and informed consent, the patient was taken to the operating theater. Numerous skin electrodes were applied to facilitate continuous echocardiographic monitoring. The left precordial region was prepped and draped in usual fashion. A 1-1/2 inch incision was made after the skin was infiltrated with lidocaine. Using the [employer] insertion tool, a loop recorder was implanted without difficulty. Confirmed RX model number 3500, serial number [id number]. His R wave measured 0.52 mV. His incision was closed using hussain and a dry dressing was applied. The patient was returned to advanced recovery and will be discharged shortly. No apparent complications. Estimated blood loss zero. He will be instructed to perform only light activities of daily living with his left arm and to avoid getting his incision wet until his hussain removed in my office 03/09/2017 at 10 a.m. His medications will resume. Lisinopril 20 mg tablets 1/2 tablet twice a day, atenolol 25 mg daily, chlorthalidone 12.5 mg daily, Advair Diskus 100-50 one puff twice a day, Combivent inhaler one inhalation four times a day, Breo Ellipta 100-25 one inhalation daily as directed, aspirin 81 mg daily, omeprazole 40 mg daily, meloxicam 7.5 mg twice a day, baclofen 10 mg three times a day, Imitrex 50 mg daily as needed headache, Tylenol 125 mg every 6 hours as needed, Good Sense nicotine tablets 4 mg one tablet as needed, and [id number] mg tablets two every other day, then one tablet every day for 4 weeks and then one half tablet daily until prescription completed. He has been encouraged contact us promptly for any abnormal erythema, swelling or discharge.
== END 2017-02-28 16:28 | disposition home or self-care (01) ==
LOC: M SDC 11:48
PROVIDERS: ATTEND Internal Medicine Cardiovascular Disease
DX: R55 Syncope and collapse (principal); I49.3 Ventricular premature depolarization; I10 Essential (primary) hypertension; K21.9 Gastro-esophageal reflux disease without esophagitis; J44.9 Chronic obstructive pulmonary disease, unspecified; G43.009 Migraine without aura, not intractable, without status migrainosus; F17.210 Nicotine dependence, cigarettes, uncomplicated; Z79.899 Other long term (current) drug therapy; Z79.51 Long term (current) use of inhaled steroids
CPT/HCPCS: 33282; C1764; J0690; J2250; J3010

== ENCOUNTER 2017-03-26 13:12 | Inpatient (IN) | payer OTHER ==
[2017-03-26] MEDS: INSULIN HUMAN REGULAR 100 UNITS in NS 99 ML IV ×2 (07:30→17:14)
[2017-03-26] MEDS: OMEPRAZOLE 20 MG CAP PO (09:00)
[2017-03-26] MEDS: CitaloPRAM (CeleXA) 10 MG TABLET PO (09:00)
[2017-03-26] MEDS: ONDANSETRON 4 MG ORAL DISINTEGRATING TAB (S0181) PO (14:35)
[2017-03-26 14:47] LABS: BASO % 0.3 % (0.0-1.0); EOS % 0.1 % (0.0-3.0); HEMATOCRIT 44.1 % (42.0-52.0); IMMATURE GRANULOCYTE % 0.4 % (0-0); LYMPH # 1.4 10^3/uL (1.5-4.5); LYMPH % 15.5 % (24.0-44.0); MEAN CORPUSCULAR HEMOGLOBIN 30.1 pg (27.0-33.0); MEAN CORPUSCULAR VOLUME 88.4 fl (80.0-96.0); MONO # 0.8 10^3/uL (0.0-0.8); MONO % 8.6 % (0.0-5.0); NEUTROPHILS # 6.7 10^3/uL (1.8-7.7); NEUTROPHILS % 75.1 % (36.0-66.0); PLATELET COUNT, AUTOMATED 208 10^3/uL (150-450); RED BLOOD COUNT 4.99 10^6/uL (4.30-6.10); RED CELL DISTRIBUTION WIDTH 12.6 % (11.5-14.5)
[2017-03-26 15:07] LABS: KETONE, URINE AUTO RFX 1+ mg/dL (NEGATIVE); LEUKOCYTE ESTERASE UR AUTO RFX NEGATIVE (NEGATIVE); MUCUS, URINE RFX SMALL (NEGATIVE); NITRITE, URINE AUTO RFX NEGATIVE (NEGATIVE); RBC, URINE AUTO RFX 1 /HPF (0-3); SPECIFIC GRAVITY UR AUTO RFX 1.025 (1.002-1.035); SQUAM EPITHELIAL CELL UR AURFX 0 /HPF (0-6); WBC, URINE AUTO RFX 1 /HPF (0-3)
[2017-03-26 15:25] LABS: ANION GAP 20 MEQ/L (8-16); BLOOD UREA NITROGEN 43 MG/DL (7-18); CALCIUM LEVEL 10.3 MG/DL (8.5-10.1); CARBON DIOXIDE LEVEL 21 MEQ/L (21-32); CHLORIDE LEVEL 85 MEQ/L (98-107); CREATININE FOR GFR 2.19 MG/DL (0.70-1.30); GLOMERULAR FILTRATION RATE 43.2 (>60); SODIUM LEVEL 126 MEQ/L (136-145)
[2017-03-26 15:41] LABS: GLUCOSE, FASTING 920 MG/DL (70-105); POTASSIUM SERUM 5.4 MEQ/L (3.5-5.1)
[2017-03-26 16:18] LABS: ABG BASE EXCESS -7.8 (-2.0-2.0); ABG HCO3 17.7 MEQ/L (22.0-26.0); ABG O2 SATURATION 95.4 % (95.0-99.0); ABG PARTIAL PRESSURE CO2 36.7 mmHg (35.0-45.0); ABG PARTIAL PRESSURE O2 86.6 mmHg (75.0-100.0); ABG STANDARD HCO3 18.2 MEQ/L (22.0-26.0); ABG TOTAL CO2 18.9 MEQ/L (22.0-29.0); ABG pH (ARTERIAL) 7.302 UNITS (7.350-7.450)
[2017-03-26 16:23] LABS: ESTIMATED AVERAGE GLUCOSE 269 MG/DL (60-110)
[2017-03-26] MEDS: NS 1,000 ML IV ×5 (16:30→23:53)
[2017-03-26] MEDS: HumuLIN R (REGULAR) INSULIN (NovoLIN R) **100U/ML** PER UNIT IV (16:33)
[2017-03-26] MEDS: INSULIN IV RATE CHANGE DOCUMENTATION ML/HR XX ×3 (18:31→20:42)
[2017-03-26 18:41] LABS: ANION GAP 15 MEQ/L (8-16); BLOOD UREA NITROGEN 38 MG/DL (7-18); CALCIUM LEVEL 9.4 MG/DL (8.5-10.1); CARBON DIOXIDE LEVEL 22 MEQ/L (21-32); CHLORIDE LEVEL 93 MEQ/L (98-107); CREATININE FOR GFR 1.84 MG/DL (0.70-1.30); GLOMERULAR FILTRATION RATE 52.8 (>60); POTASSIUM SERUM 4.4 MEQ/L (3.5-5.1); SODIUM LEVEL 130 MEQ/L (136-145)
[2017-03-26 18:56] LABS: GLUCOSE, FASTING 590 MG/DL (70-105)
[2017-03-26 19:14] LABS: ACETONE/KETONE > 46.00 MG/DL (<2.81)
[2017-03-26 19:20] LABS: BEDSIDE GLUCOSE 480 MG/DL (70-105)
[2017-03-26 20:20] LABS: BEDSIDE GLUCOSE 430 MG/DL (70-105)
[2017-03-26 21:34] LABS: BEDSIDE GLUCOSE 319 MG/DL (70-105)
[2017-03-26 21:43] LABS: ANION GAP 10 MEQ/L (8-16); BLOOD UREA NITROGEN 31 MG/DL (7-18); CALCIUM LEVEL 9.1 MG/DL (8.5-10.1); CARBON DIOXIDE LEVEL 25 MEQ/L (21-32); CHLORIDE LEVEL 99 MEQ/L (98-107); CREATININE FOR GFR 1.45 MG/DL (0.70-1.30); GLOMERULAR FILTRATION RATE > 60.0 (>60); GLUCOSE, FASTING 351 MG/DL (70-105); SODIUM LEVEL 134 MEQ/L (136-145)
[2017-03-26] MEDS ORDERED: ACETAMINOPHEN 325 MG TAB As Ordered (21:52)
[2017-03-26] MEDS: ACETAMINOPHEN 500 MG TAB PO (22:05)
[2017-03-26] MEDS: KCL 20MEQ IN 0.45NS 1000ML 1,000 ML IV (22:15)
[2017-03-26] MEDS: METOPROLOL SUCC *XL* 25MG TAB (TopROL *XL*) PO (22:33)
[2017-03-26 22:42] LABS: BEDSIDE GLUCOSE 307 MG/DL (70-105)
[2017-03-26] MEDS: POTASSIUM CHLORIDE INJ 40 MEQ in NS 0.45% 1,000 ML IV (23:00)
[2017-03-26 23:45] LABS: BEDSIDE GLUCOSE 275 MG/DL (70-105)
[2017-03-26 23:59] LABS: ANION GAP 10 MEQ/L (8-16); BLOOD UREA NITROGEN 26 MG/DL (7-18); CALCIUM LEVEL 9.4 MG/DL (8.5-10.1); CARBON DIOXIDE LEVEL 26 MEQ/L (21-32); CHLORIDE LEVEL 98 MEQ/L (98-107); CREATININE FOR GFR 1.28 MG/DL (0.70-1.30); GLOMERULAR FILTRATION RATE > 60.0 (>60); GLUCOSE, FASTING 271 MG/DL (70-105); POTASSIUM SERUM 3.5 MEQ/L (3.5-5.1); SODIUM LEVEL 134 MEQ/L (136-145)
[2017-03-27 00:38] LABS: BEDSIDE GLUCOSE 238 MG/DL (70-105)
[2017-03-27 01:48] LABS: BEDSIDE GLUCOSE 222 MG/DL (70-105)
[2017-03-27 02:38] LABS: BEDSIDE GLUCOSE 220 MG/DL (70-105)
[2017-03-27] MEDS: POTASSIUM CHLORIDE INJ 40 MEQ in NS 0.45% 1,000 ML IV ×2 (03:30→08:01)
[2017-03-27 03:36] LABS: BEDSIDE GLUCOSE 235 MG/DL (70-105)
[2017-03-27 03:56] LABS: ANION GAP 6 MEQ/L (8-16); BLOOD UREA NITROGEN 20 MG/DL (7-18); CALCIUM LEVEL 8.8 MG/DL (8.5-10.1); CARBON DIOXIDE LEVEL 28 MEQ/L (21-32); CHLORIDE LEVEL 101 MEQ/L (98-107); CREATININE FOR GFR 1.12 MG/DL (0.70-1.30); GLOMERULAR FILTRATION RATE > 60.0 (>60); GLUCOSE, FASTING 216 MG/DL (70-105); SODIUM LEVEL 135 MEQ/L (136-145)
[2017-03-27 04:54] LABS: BEDSIDE GLUCOSE 238 MG/DL (70-105)
[2017-03-27 05:30] LABS: HEMATOCRIT 34.4 % (42.0-52.0); MEAN CORPUSCULAR HEMOGLOBIN 30.3 pg (27.0-33.0); MEAN CORPUSCULAR HGB CONC 35.5 g/dl (32.0-36.5); MEAN CORPUSCULAR VOLUME 85.4 fl (80.0-96.0); PLATELET COUNT, AUTOMATED 164 10^3/uL (150-450); RED BLOOD COUNT 4.03 10^6/uL (4.30-6.10); RED CELL DISTRIBUTION WIDTH 12.5 % (11.5-14.5); WHITE BLOOD COUNT 7.3 10^3/uL (4.0-10.0)
[2017-03-27] MEDS: ACETAMINOPHEN 500 MG TAB PO ×3 (05:36→20:24)
[2017-03-27 05:41] LABS: BEDSIDE GLUCOSE 228 MG/DL (70-105)
[2017-03-27 05:43] LABS: HEMOGLOBIN 12.2 g/dl (14.0-18.0)
[2017-03-27 05:57] LABS: ALBUMIN 3.5 GM/DL (3.2-5.2); ALBUMIN/GLOBULIN RATIO 0.78 (1.00-1.93); ALKALINE PHOSPHATASE 69 U/L (45-117); ALT/SGPT 41 U/L (12-78); ANION GAP 9 MEQ/L (8-16); AST/SGOT 23 U/L (7-37); BILIRUBIN,TOTAL 0.6 MG/DL (0.2-1.0); BLOOD UREA NITROGEN 16 MG/DL (7-18); CALCIUM LEVEL 8.8 MG/DL (8.5-10.1); CARBON DIOXIDE LEVEL 26 MEQ/L (21-32); CHLORIDE LEVEL 100 MEQ/L (98-107); CREATININE FOR GFR 1.01 MG/DL (0.70-1.30); GLOMERULAR FILTRATION RATE > 60.0 (>60); GLUCOSE, FASTING 205 MG/DL (70-105); SODIUM LEVEL 135 MEQ/L (136-145)
[2017-03-27 06:39] LABS: BEDSIDE GLUCOSE 229 MG/DL (70-105)
[2017-03-27 07:47] LABS: BEDSIDE GLUCOSE 211 MG/DL (70-105)
[2017-03-27 08:03] LABS: ANION GAP 8 MEQ/L (8-16); BLOOD UREA NITROGEN 15 MG/DL (7-18); CALCIUM LEVEL 8.8 MG/DL (8.5-10.1); CARBON DIOXIDE LEVEL 27 MEQ/L (21-32); CHLORIDE LEVEL 101 MEQ/L (98-107); CREATININE FOR GFR 0.98 MG/DL (0.70-1.30); GLOMERULAR FILTRATION RATE > 60.0 (>60); GLUCOSE, FASTING 207 MG/DL (70-105); POTASSIUM SERUM 4.1 MEQ/L (3.5-5.1); SODIUM LEVEL 136 MEQ/L (136-145)
[2017-03-27 08:35] LABS: BEDSIDE GLUCOSE 224 MG/DL (70-105)
[2017-03-27] MEDS: ENOXAPARIN 40 MG/0.4 ML SYRINGE (J1650) SC (08:55)
[2017-03-27] MEDS: OMEPRAZOLE 20 MG CAP PO (08:55)
[2017-03-27] MEDS: METOPROLOL SUCC *XL* 25MG TAB (TopROL *XL*) PO ×2 (08:55→21:41)
[2017-03-27] MEDS: CitaloPRAM (CeleXA) 10 MG TABLET PO ×2 (08:55→08:56)
[2017-03-27] MEDS ORDERED: DEXTROSE 50% 50 ML SYRINGE IV (09:15)
[2017-03-27] MEDS ORDERED: GLUCOSE 4 GM CHEW TABLET PO (09:15)
[2017-03-27] MEDS ORDERED: GLUCAGON FOR INJ 1 MG VIAL (J1610) SC (09:15)
[2017-03-27] MEDS: HumaLOG INSULIN (NovoLOG) PER UNIT SC ×4 (09:30→21:40)
[2017-03-27 09:56] LABS: ANION GAP 7 MEQ/L (8-16); BLOOD UREA NITROGEN 14 MG/DL (7-18); CALCIUM LEVEL 8.7 MG/DL (8.5-10.1); CARBON DIOXIDE LEVEL 27 MEQ/L (21-32); CHLORIDE LEVEL 101 MEQ/L (98-107); CREATININE FOR GFR 0.95 MG/DL (0.70-1.30); GLOMERULAR FILTRATION RATE > 60.0 (>60); GLUCOSE, FASTING 205 MG/DL (70-105); POTASSIUM SERUM 4.1 MEQ/L (3.5-5.1); SODIUM LEVEL 135 MEQ/L (136-145)
[2017-03-27] MEDS: KCL 20MEQ IN 0.45NS 1000ML 1,000 ML IV ×2 (10:00→17:54)
[2017-03-27 11:55] LABS: BEDSIDE GLUCOSE 379 MG/DL (70-105)
[2017-03-27] MEDS: LISINOPRIL 5 MG TAB PO (14:29)
[2017-03-27 17:57] LABS: BEDSIDE GLUCOSE 315 MG/DL (70-105)
[2017-03-27 19:09] LABS: AMYLASE 61 U/L (25-115); LIPASE 179 U/L (73-393)
[2017-03-27 21:17] LABS: BEDSIDE GLUCOSE 340 MG/DL (70-105)
[2017-03-28] MEDS: HumaLOG INSULIN (NovoLOG) PER UNIT SC ×5 (00:58→21:04)
[2017-03-28 01:09] LABS: BEDSIDE GLUCOSE 293 MG/DL (70-105)
[2017-03-28] MEDS: ACETAMINOPHEN 500 MG TAB PO ×4 (05:23→22:53)
[2017-03-28 07:08] LABS: HEMATOCRIT 35.3 % (42.0-52.0); HEMOGLOBIN 12.4 g/dl (14.0-18.0); MEAN CORPUSCULAR HEMOGLOBIN 30.3 pg (27.0-33.0); MEAN CORPUSCULAR HGB CONC 35.1 g/dl (32.0-36.5); MEAN CORPUSCULAR VOLUME 86.3 fl (80.0-96.0); PLATELET COUNT, AUTOMATED 154 10^3/uL (150-450); RED BLOOD COUNT 4.09 10^6/uL (4.30-6.10); RED CELL DISTRIBUTION WIDTH 12.3 % (11.5-14.5); WHITE BLOOD COUNT 7.3 10^3/uL (4.0-10.0)
[2017-03-28 07:43] LABS: ALBUMIN 3.4 GM/DL (3.2-5.2); ALBUMIN/GLOBULIN RATIO 0.83 (1.00-1.93); ALKALINE PHOSPHATASE 63 U/L (45-117); ALT/SGPT 42 U/L (12-78); ANION GAP 7 MEQ/L (8-16); AST/SGOT 31 U/L (7-37); BILIRUBIN,TOTAL 0.2 MG/DL (0.2-1.0); BLOOD UREA NITROGEN 11 MG/DL (7-18); CALCIUM LEVEL 8.5 MG/DL (8.5-10.1); CARBON DIOXIDE LEVEL 27 MEQ/L (21-32); CHLORIDE LEVEL 101 MEQ/L (98-107); CREATININE FOR GFR 0.97 MG/DL (0.70-1.30); GLOMERULAR FILTRATION RATE > 60.0 (>60); GLUCOSE, FASTING 239 MG/DL (70-105); POTASSIUM SERUM 3.4 MEQ/L (3.5-5.1); SODIUM LEVEL 135 MEQ/L (136-145); TOTAL PROTEIN 7.5 GM/DL (6.4-8.2)
[2017-03-28] MEDS: INFLUENZA QUADRIVALENT PF VACCINE 0.5ML SYRINGE (90686) IM (08:17)
[2017-03-28] MEDS: LEVEMIR (INSULIN DETEMIR) 1 UNITS/0.01ML SC (08:18)
[2017-03-28] MEDS: OMEPRAZOLE 20 MG CAP PO (08:19)
[2017-03-28] MEDS: METOPROLOL SUCC *XL* 25MG TAB (TopROL *XL*) PO ×2 (08:19→21:05)
[2017-03-28] MEDS: LISINOPRIL 5 MG TAB PO ×2 (08:19→21:04)
[2017-03-28] MEDS: ENOXAPARIN 40 MG/0.4 ML SYRINGE (J1650) SC (08:20)
[2017-03-28 11:51] LABS: BEDSIDE GLUCOSE 236 MG/DL (70-105)
[2017-03-28 12:03] LABS: BEDSIDE GLUCOSE 409 MG/DL (70-105)
[2017-03-28 13:24] LABS: BEDSIDE GLUCOSE 290 MG/DL (70-105)
[2017-03-28 14:39] LABS: HIV 1&2 SCREEN CENTAUR NEGATIVE (NEGATIVE)
[2017-03-28] MEDS: POTASSIUM CHLORIDE 10 MEQ SR TABLET PO (16:33)
[2017-03-28 17:01] LABS: BEDSIDE GLUCOSE 326 MG/DL (70-105)
[2017-03-28 20:56] LABS: BEDSIDE GLUCOSE 328 MG/DL (70-105)
[2017-03-29] MEDS: ACETAMINOPHEN 500 MG TAB PO (06:09)
[2017-03-29 06:58] LABS: BEDSIDE GLUCOSE 329 MG/DL (70-105)
[2017-03-29 07:38] LABS: HEMATOCRIT 36.4 % (42.0-52.0); HEMOGLOBIN 12.8 g/dl (14.0-18.0); MEAN CORPUSCULAR HEMOGLOBIN 30.3 pg (27.0-33.0); MEAN CORPUSCULAR HGB CONC 35.2 g/dl (32.0-36.5); MEAN CORPUSCULAR VOLUME 86.1 fl (80.0-96.0); PLATELET COUNT, AUTOMATED 167 10^3/uL (150-450); RED BLOOD COUNT 4.23 10^6/uL (4.30-6.10); RED CELL DISTRIBUTION WIDTH 12.3 % (11.5-14.5); WHITE BLOOD COUNT 6.5 10^3/uL (4.0-10.0)
[2017-03-29 08:03] LABS: ALBUMIN 3.7 GM/DL (3.2-5.2); ALBUMIN/GLOBULIN RATIO 0.86 (1.00-1.93); ALKALINE PHOSPHATASE 69 U/L (45-117); ALT/SGPT 43 U/L (12-78); ANION GAP 9 MEQ/L (8-16); AST/SGOT 27 U/L (7-37); BILIRUBIN,TOTAL 0.4 MG/DL (0.2-1.0); BLOOD UREA NITROGEN 17 MG/DL (7-18); CARBON DIOXIDE LEVEL 24 MEQ/L (21-32); CHLORIDE LEVEL 101 MEQ/L (98-107); CREATININE FOR GFR 0.98 MG/DL (0.70-1.30); GLOMERULAR FILTRATION RATE > 60.0 (>60); GLUCOSE, FASTING 339 MG/DL (70-105); POTASSIUM SERUM 4.4 MEQ/L (3.5-5.1); SODIUM LEVEL 134 MEQ/L (136-145)
[2017-03-29] MEDS: LISINOPRIL 5 MG TAB PO (08:39)
[2017-03-29] MEDS: OMEPRAZOLE 20 MG CAP PO (08:39)
[2017-03-29] MEDS: METOPROLOL SUCC *XL* 25MG TAB (TopROL *XL*) PO (08:40)
[2017-03-29] MEDS: LEVEMIR (INSULIN DETEMIR) 1 UNITS/0.01ML SC ×2 (08:41→21:54)
[2017-03-29] MEDS: HumaLOG INSULIN (NovoLOG) PER UNIT SC ×4 (08:42→21:55)
[2017-03-29] MEDS: ENOXAPARIN 40 MG/0.4 ML SYRINGE (J1650) SC (08:43)
[2017-03-29 11:57] LABS: BEDSIDE GLUCOSE 382 MG/DL (70-105)
[2017-03-29] MEDS: IBUPROFEN 400 MG TAB PO ×2 (13:07→21:54)
[2017-03-29 16:57] LABS: BEDSIDE GLUCOSE 326 MG/DL (70-105)
[2017-03-29] MEDS: LISINOPRIL 10 MG TAB PO (21:53)
[2017-03-30 02:52] LABS: BEDSIDE GLUCOSE 307 MG/DL (70-105)
[2017-03-30] MEDS: IBUPROFEN 400 MG TAB PO (05:43)
[2017-03-30 07:06] LABS: C-PEPTIDE 1.6
[2017-03-30 07:07] LABS: HEMATOCRIT 36.6 % (42.0-52.0); HEMOGLOBIN 12.9 g/dl (14.0-18.0); MEAN CORPUSCULAR HEMOGLOBIN 30.2 pg (27.0-33.0); MEAN CORPUSCULAR HGB CONC 35.2 g/dl (32.0-36.5); MEAN CORPUSCULAR VOLUME 85.7 fl (80.0-96.0); PLATELET COUNT, AUTOMATED 160 10^3/uL (150-450); RED BLOOD COUNT 4.27 10^6/uL (4.30-6.10); RED CELL DISTRIBUTION WIDTH 12.3 % (11.5-14.5)
[2017-03-30 07:36] LABS: ALBUMIN 3.6 GM/DL (3.2-5.2); ALBUMIN/GLOBULIN RATIO 0.82 (1.00-1.93); ALKALINE PHOSPHATASE 69 U/L (45-117); ALT/SGPT 59 U/L (12-78); ANION GAP 9 MEQ/L (8-16); AST/SGOT 54 U/L (7-37); BILIRUBIN,TOTAL 0.2 MG/DL (0.2-1.0); BLOOD UREA NITROGEN 21 MG/DL (7-18); CARBON DIOXIDE LEVEL 24 MEQ/L (21-32); CHLORIDE LEVEL 102 MEQ/L (98-107); CREATININE FOR GFR 0.96 MG/DL (0.70-1.30); GLOMERULAR FILTRATION RATE > 60.0 (>60); GLUCOSE, FASTING 330 MG/DL (70-105); POTASSIUM SERUM 4.2 MEQ/L (3.5-5.1); SODIUM LEVEL 135 MEQ/L (136-145)
[2017-03-30] MEDS: METOPROLOL SUCC (TopROL XL) 50MG **XL** TAB PO (09:17)
[2017-03-30] MEDS: OMEPRAZOLE 20 MG CAP PO (09:17)
[2017-03-30] MEDS: ENOXAPARIN 40 MG/0.4 ML SYRINGE (J1650) SC (09:18)
[2017-03-30] MEDS: LISINOPRIL 10 MG TAB PO (09:18)
[2017-03-30] MEDS: HumaLOG INSULIN (NovoLOG) PER UNIT SC ×2 (09:19→12:54)
[2017-03-30 12:14] LABS: BEDSIDE GLUCOSE 351 MG/DL (70-105)
[2017-03-31 14:11] LABS: C-PEPTIDE 2.1 ng/mL (1.1-4.4)
[2017-04-01 10:40] LABS: ZNT8 ABS <15
[2017-04-01 10:41] LABS: IA-2 AUTOANTIBODIES < 1.00 U/ML (0.0-0.75)
[2017-04-01 10:41] LABS: GAD-65 AUTOANTIBODY <5.0
== END 2017-03-30 15:05 | disposition home health service (06) | DRG 420 ==
LOC: M MS5PR 03-27 13:26 → M ED 13:12 → M ED INP 17:41
DX: E10.10 Type 1 diabetes mellitus with ketoacidosis without coma (principal); N17.9 Acute kidney failure, unspecified; R55 Syncope and collapse; I10 Essential (primary) hypertension; K21.9 Gastro-esophageal reflux disease without esophagitis; J44.9 Chronic obstructive pulmonary disease, unspecified; E87.6 Hypokalemia; E86.0 Dehydration; G43.709 Chronic migraine without aura, not intractable, without status migrainosus; R76.11 Nonspecific reaction to tuberculin skin test without active tuberculosis; K05.10 Chronic gingivitis, plaque induced; E10.65 Type 1 diabetes mellitus with hyperglycemia; F17.210 Nicotine dependence, cigarettes, uncomplicated; Z79.82 Long term (current) use of aspirin; Z79.899 Other long term (current) drug therapy

== ENCOUNTER → 2017-04-25 | Outpatient (REF) | payer OTHER ==
[2017-04-25 12:04] LABS: HEMATOCRIT 39.2 % (42.0-52.0); HEMOGLOBIN 13.4 g/dl (14.0-18.0); MEAN CORPUSCULAR VOLUME 89.3 fl (80.0-96.0); RED BLOOD COUNT 4.39 10^6/uL (4.30-6.10)
[2017-04-25 12:05] LABS: BASO % 0.6 % (0.0-1.0); EOS # 0.1 10^3/uL (0.0-0.50); EOS % 1.9 % (0.0-3.0); LYMPH # 2.7 10^3/uL (1.5-4.5); LYMPH % 38.5 % (24.0-44.0); MEAN CORPUSCULAR HEMOGLOBIN 30.5 pg (27.0-33.0); MEAN CORPUSCULAR HGB CONC 34.2 g/dl (32.0-36.5); MONO # 0.8 10^3/uL (0.0-0.8); MONO % 10.9 % (0.0-5.0); NEUTROPHILS # 3.3 10^3/uL (1.8-7.7); NEUTROPHILS % 47.1 % (36.0-66.0); PLATELET COUNT, AUTOMATED 213 10^3/uL (150-450); RED CELL DISTRIBUTION WIDTH 12.9 % (11.5-14.5)
[2017-04-25 12:39] LABS: ESTIMATED AVERAGE GLUCOSE 260 MG/DL (60-110); HEMOGLOBIN A1c 10.7 %
[2017-04-25 12:41] LABS: ALBUMIN 4.1 GM/DL (3.2-5.2); ALBUMIN/GLOBULIN RATIO 1.05 (1.00-1.93); ALKALINE PHOSPHATASE 70 U/L (45-117); ALT/SGPT 49 U/L (12-78); ANION GAP 9 MEQ/L (8-16); AST/SGOT 26 U/L (7-37); BILIRUBIN,TOTAL 0.3 MG/DL (0.2-1.0); BLOOD UREA NITROGEN 10 MG/DL (7-18); CALCIUM LEVEL 9.3 MG/DL (8.5-10.1); CARBON DIOXIDE LEVEL 25 MEQ/L (21-32); CHLORIDE LEVEL 107 MEQ/L (98-107); CREATININE FOR GFR 0.98 MG/DL (0.70-1.30); GLOMERULAR FILTRATION RATE > 60.0 (>60); GLUCOSE, FASTING 150 MG/DL (70-100); SODIUM LEVEL 141 MEQ/L (136-145)
== END ==
LOC: M SFHCPLAZ 09:02
DX: E11.69 Type 2 diabetes mellitus with other specified complication (principal); I10 Essential (primary) hypertension

== ENCOUNTER 2017-06-08 09:12 | Emergency (ER) | payer OTHER ==
[2017-06-08] MEDS: LIDOCAINE VISCOUS 2% SOLN 15ML UDC MT (10:00)
== END 2017-06-08 10:04 | disposition home or self-care (01) ==
LOC: M ED 09:12
DX: K04.7 Periapical abscess without sinus (principal); K05.6 Periodontal disease, unspecified; E11.9 Type 2 diabetes mellitus without complications; I10 Essential (primary) hypertension; J44.9 Chronic obstructive pulmonary disease, unspecified; F33.9 Major depressive disorder, recurrent, unspecified; Z79.4 Long term (current) use of insulin; Z79.82 Long term (current) use of aspirin; Z79.51 Long term (current) use of inhaled steroids; Z79.899 Other long term (current) drug therapy; Z95.818 Presence of other cardiac implants and grafts
CPT/HCPCS: 99282

== ENCOUNTER → 2017-06-08 | Outpatient (REF) | payer OTHER ==
[2017-06-08 13:53] LABS: ESTIMATED AVERAGE GLUCOSE 194 MG/DL (60-110); HEMOGLOBIN A1c 8.4 %
== END ==
LOC: M SFHCPLAZ 08:32
DX: E11.69 Type 2 diabetes mellitus with other specified complication (principal)
CPT/HCPCS: 83036

== ENCOUNTER 2017-07-10 21:40 | Inpatient (IN) | payer OTHER ==
[2017-07-10] MEDS: TOPIRAMATE (TopAMAX) 100 MG TAB PO (21:00)
[2017-07-10] MEDS: LEVEMIR (INSULIN DETEMIR) 1 UNITS/0.01ML SC (21:00)
[2017-07-10] MEDS: AMITRIPTYLINE 10 MG TAB PO (21:00)
[2017-07-10] MEDS ORDERED: NITROGLYCERIN 0.4 MG SUBL TABLET As Ordered (22:12)
[2017-07-10] MEDS: NITROGLYCERIN 0.4 MG SUBL TABLET SL ×3 (22:20→22:30)
[2017-07-10 22:24] LABS: BASO % 0.5 % (0.0-1.0); EOS # 0.2 10^3/uL (0.0-0.50); EOS % 2.1 % (0.0-3.0); HEMATOCRIT 36.9 % (42.0-52.0); HEMOGLOBIN 12.6 g/dl (13.5-17.5); IMMATURE GRANULOCYTE % 0.3 % (0-3.0); LYMPH # 3.4 10^3/uL (1.5-4.5); LYMPH % 46.2 % (24.0-44.0); MEAN CORPUSCULAR HEMOGLOBIN 30.2 pg (27.0-33.0); MEAN CORPUSCULAR HGB CONC 34.1 g/dl (32.0-36.5); MEAN CORPUSCULAR VOLUME 88.5 fl (80.0-96.0); MONO # 0.8 10^3/uL (0.0-0.8); MONO % 10.5 % (0.0-5.0); NEUTROPHILS % 40.4 % (36.0-66.0); PLATELET COUNT, AUTOMATED 199 10^3/uL (150-450); RED BLOOD COUNT 4.17 10^6/uL (4.30-6.10); RED CELL DISTRIBUTION WIDTH 12.8 % (11.5-14.5); WHITE BLOOD COUNT 7.3 10^3/uL (4.0-10.0)
[2017-07-10] MEDS: ASPIRIN 81 MG CHEW TABLET PO (22:30)
[2017-07-10 22:53] LABS: ANION GAP 7 MEQ/L (8-16); BLOOD UREA NITROGEN 9 MG/DL (7-18); CALCIUM LEVEL 8.9 MG/DL (8.5-10.1); CARBON DIOXIDE LEVEL 27 MEQ/L (21-32); CHLORIDE LEVEL 110 MEQ/L (98-107); CK-MB VALUE MASS < 1.0 NG/ML (<3.6); CPK CREATINE PHOSPHOKINASE 234 U/L (39-308); CREATININE FOR GFR 1.08 MG/DL (0.70-1.30); GLOMERULAR FILTRATION RATE > 60.0 (>60); GLUCOSE, FASTING 101 MG/DL (70-100); MB/CK RELATIVE INDEX 0.42 (< OR =4); SODIUM LEVEL 144 MEQ/L (136-145); TROPONIN I < 0.02 NG/ML (< 0.10)
[2017-07-11 00:30] LABS: D-DIMER QUANT 457.3 ng/ml (<500)
[2017-07-11] MEDS: MORPHINE 4 MG/ML 1ML VIAL/SYRINGE (J2270) IV (01:15)
[2017-07-11 02:41] LABS: CK-MB VALUE MASS < 1.0 NG/ML (<3.6); CPK CREATINE PHOSPHOKINASE 199 U/L (39-308); TROPONIN I < 0.02 NG/ML (< 0.10)
[2017-07-11] MEDS: amLODIPine 5 MG TAB PO (03:19)
[2017-07-11] MEDS: hydrALAZINE INJ 20 MG/ML VIAL IV (04:30)
[2017-07-11] MEDS: LABETALOL HCL 100 MG/20 ML VIAL IV (05:29)
[2017-07-11] MEDS ORDERED: SUMAtriptan SUCCINATE 25 MG TAB PO (06:15)
[2017-07-11] MEDS ORDERED: IPRATROPIUM 0.5MG/ALBUTEROL 2.5MG INH SOL UD 3ML (DUONEB)(J7620) NEB (06:15)
[2017-07-11] MEDS ORDERED: GLUCAGON FOR INJ 1 MG VIAL (J1610) SC (06:45)
[2017-07-11] MEDS ORDERED: DEXTROSE 50% 50 ML SYRINGE IV (06:45)
[2017-07-11] MEDS ORDERED: GLUCOSE 4 GM CHEW TABLET PO (06:45)
[2017-07-11] MEDS: HumaLOG INSULIN (NovoLOG) PER UNIT SC ×4 (07:30→21:00)
[2017-07-11 07:37] LABS: ESTIMATED AVERAGE GLUCOSE 157 MG/DL (60-110); HEMOGLOBIN A1c 7.1 %
[2017-07-11] MEDS: ADVAIR HFA 45/21MCG INHALER INH ×2 (08:00→20:24)
[2017-07-11] MEDS: IPRATROPIUM 0.5MG/ALBUTEROL 2.5MG INH SOL UD 3ML (DUONEB)(J7620) INH ×3 (08:00→15:08)
[2017-07-11] MEDS: metFORMIN (GLUCOPHAGE) 500 MG TAB PO (08:24)
[2017-07-11] MEDS: ASPIRIN 81 MG CHEW TABLET PO (08:24)
[2017-07-11] MEDS: methylPREDNISolone INJ 125 MG/2 ML VIAL (J2930) IV (08:24)
[2017-07-11] MEDS: METOPROLOL SUCC (TopROL XL) 50MG **XL** TAB PO (08:24)
[2017-07-11] MEDS: OMEPRAZOLE 20 MG CAP PO (08:24)
[2017-07-11] MEDS: LevoFLOXacin IV 750 MG in APPROPRIATE DILUENT 1 EA IV (08:24)
[2017-07-11] MEDS: cloNIDine 0.1 MG TAB PO (08:25)
[2017-07-11] MEDS: LISINOPRIL 20 MG TAB PO (08:25)
[2017-07-11 11:48] LABS: BEDSIDE GLUCOSE 117 MG/DL (70-105)
[2017-07-11] MEDS ORDERED: ISOVUE-370 76% 100ML VIAL (Q9967) As Ordered (12:47)
[2017-07-11] MEDS: ENOXAPARIN 40 MG/0.4 ML SYRINGE (J1650) SC (13:13)
[2017-07-11] MEDS: ACETAMINOPHEN TAB 650MG DOSE (2X325MG) PO ×3 (13:13→21:28)
[2017-07-11 13:32] LABS: FREE T4 1.09 NG/DL (0.76-1.46)
[2017-07-11] MEDS: CHLORTHALIDONE 25 MG TAB PO (13:55)
[2017-07-11 17:04] LABS: BEDSIDE GLUCOSE 192 MG/DL (70-105)
[2017-07-11 18:08] LABS: BEDSIDE GLUCOSE 100 MG/DL (70-105)
[2017-07-11 21:15] LABS: BEDSIDE GLUCOSE 179 MG/DL (70-105)
[2017-07-11] MEDS: TOPIRAMATE (TopAMAX) 100 MG TAB PO (21:27)
[2017-07-11] MEDS: LEVEMIR (INSULIN DETEMIR) 1 UNITS/0.01ML SC (21:27)
[2017-07-11] MEDS: AMITRIPTYLINE 10 MG TAB PO (21:28)
[2017-07-12 06:28] LABS: BASO % 0.3 % (0.0-1.0); EOS % 0.3 % (0.0-3.0); HEMATOCRIT 38.6 % (42.0-52.0); HEMOGLOBIN 13.1 g/dl (13.5-17.5); IMMATURE GRANULOCYTE % 0.7 % (0-3.0); LYMPH # 2.4 10^3/uL (1.5-4.5); LYMPH % 20.5 % (24.0-44.0); MEAN CORPUSCULAR HEMOGLOBIN 30.3 pg (27.0-33.0); MEAN CORPUSCULAR HGB CONC 33.9 g/dl (32.0-36.5); MEAN CORPUSCULAR VOLUME 89.1 fl (80.0-96.0); MONO # 1.5 10^3/uL (0.0-0.8); MONO % 12.5 % (0.0-5.0); NEUTROPHILS # 7.8 10^3/uL (1.8-7.7); NEUTROPHILS % 65.7 % (36.0-66.0); PLATELET COUNT, AUTOMATED 224 10^3/uL (150-450); RED BLOOD COUNT 4.33 10^6/uL (4.30-6.10); RED CELL DISTRIBUTION WIDTH 12.9 % (11.5-14.5); WHITE BLOOD COUNT 11.8 10^3/uL (4.0-10.0)
[2017-07-12 06:44] LABS: ALBUMIN 4.1 GM/DL (3.2-5.2); ALBUMIN/GLOBULIN RATIO 0.91 (1.00-1.93); ALKALINE PHOSPHATASE 62 U/L (45-117); ALT/SGPT 51 U/L (12-78); ANION GAP 6 MEQ/L (8-16); AST/SGOT 23 U/L (7-37); BILIRUBIN,TOTAL 0.3 MG/DL (0.2-1.0); BLOOD UREA NITROGEN 14 MG/DL (7-18); CALCIUM LEVEL 9.5 MG/DL (8.5-10.1); CARBON DIOXIDE LEVEL 26 MEQ/L (21-32); CHLORIDE LEVEL 105 MEQ/L (98-107); GLOMERULAR FILTRATION RATE > 60.0 (>60); GLUCOSE, FASTING 116 MG/DL (70-100); POTASSIUM SERUM 3.7 MEQ/L (3.5-5.1); SODIUM LEVEL 137 MEQ/L (136-145); TOTAL PROTEIN 8.6 GM/DL (6.4-8.2)
[2017-07-12] MEDS: ADVAIR HFA 45/21MCG INHALER INH ×2 (07:36→20:19)
[2017-07-12] MEDS: IPRATROPIUM 0.5MG/ALBUTEROL 2.5MG INH SOL UD 3ML (DUONEB)(J7620) INH ×4 (07:36→20:00)
[2017-07-12] MEDS: ASPIRIN 81 MG CHEW TABLET PO (10:36)
[2017-07-12] MEDS: ENOXAPARIN 40 MG/0.4 ML SYRINGE (J1650) SC (10:36)
[2017-07-12] MEDS: OMEPRAZOLE 20 MG CAP PO (10:36)
[2017-07-12] MEDS: LISINOPRIL 20 MG TAB PO (10:36)
[2017-07-12] MEDS: HumaLOG INSULIN (NovoLOG) PER UNIT SC ×4 (10:37→21:00)
[2017-07-12] MEDS: CHLORTHALIDONE 25 MG TAB PO (10:37)
[2017-07-12] MEDS: METOPROLOL SUCC (TopROL XL) 50MG **XL** TAB PO (10:39)
[2017-07-12 13:01] LABS: BEDSIDE GLUCOSE 170 MG/DL (70-105)
[2017-07-12 17:53] LABS: BEDSIDE GLUCOSE 212 MG/DL (70-105)
[2017-07-12] MEDS: AMITRIPTYLINE 10 MG TAB PO (21:03)
[2017-07-12] MEDS: TOPIRAMATE (TopAMAX) 100 MG TAB PO (21:03)
[2017-07-12] MEDS: LEVEMIR (INSULIN DETEMIR) 1 UNITS/0.01ML SC (21:03)
[2017-07-12 21:07] LABS: BEDSIDE GLUCOSE 166 MG/DL (70-105)
[2017-07-13 06:54] LABS: BASO # 0.1 10^3/uL (0.0-0.2); BASO % 0.8 % (0.0-1.0); EOS # 0.1 10^3/uL (0.0-0.50); EOS % 1.5 % (0.0-3.0); HEMATOCRIT 41.8 % (42.0-52.0); HEMOGLOBIN 14.3 g/dl (13.5-17.5); IMMATURE GRANULOCYTE % 0.7 % (0-3.0); LYMPH # 3.1 10^3/uL (1.5-4.5); LYMPH % 36.6 % (24.0-44.0); MEAN CORPUSCULAR HEMOGLOBIN 30.3 pg (27.0-33.0); MEAN CORPUSCULAR HGB CONC 34.2 g/dl (32.0-36.5); MEAN CORPUSCULAR VOLUME 88.6 fl (80.0-96.0); MONO # 0.9 10^3/uL (0.0-0.8); MONO % 10.9 % (0.0-5.0); NEUTROPHILS # 4.3 10^3/uL (1.8-7.7); NEUTROPHILS % 49.5 % (36.0-66.0); PLATELET COUNT, AUTOMATED 231 10^3/uL (150-450); RED BLOOD COUNT 4.72 10^6/uL (4.30-6.10); RED CELL DISTRIBUTION WIDTH 13.1 % (11.5-14.5); WHITE BLOOD COUNT 8.6 10^3/uL (4.0-10.0)
[2017-07-13 07:23] LABS: ALBUMIN 4.3 GM/DL (3.2-5.2); ALBUMIN/GLOBULIN RATIO 1.02 (1.00-1.93); ALKALINE PHOSPHATASE 61 U/L (45-117); ALT/SGPT 59 U/L (12-78); ANION GAP 6 MEQ/L (8-16); AST/SGOT 23 U/L (7-37); BILIRUBIN,TOTAL 0.3 MG/DL (0.2-1.0); BLOOD UREA NITROGEN 18 MG/DL (7-18); CALCIUM LEVEL 9.6 MG/DL (8.5-10.1); CARBON DIOXIDE LEVEL 26 MEQ/L (21-32); CHLORIDE LEVEL 106 MEQ/L (98-107); CREATININE FOR GFR 1.19 MG/DL (0.70-1.30); GLOMERULAR FILTRATION RATE > 60.0 (>60); GLUCOSE, FASTING 120 MG/DL (70-100); POTASSIUM SERUM 3.9 MEQ/L (3.5-5.1); SODIUM LEVEL 138 MEQ/L (136-145); TOTAL PROTEIN 8.5 GM/DL (6.4-8.2)
[2017-07-13] MEDS: ADVAIR HFA 45/21MCG INHALER INH (07:30)
[2017-07-13] MEDS: IPRATROPIUM 0.5MG/ALBUTEROL 2.5MG INH SOL UD 3ML (DUONEB)(J7620) INH (07:33)
[2017-07-13] MEDS: HumaLOG INSULIN (NovoLOG) PER UNIT SC (07:50)
[2017-07-13] MEDS: LISINOPRIL 20 MG TAB PO (09:19)
[2017-07-13] MEDS: OMEPRAZOLE 20 MG CAP PO (09:19)
[2017-07-13] MEDS: ASPIRIN 81 MG CHEW TABLET PO (09:19)
[2017-07-13] MEDS: CHLORTHALIDONE 25 MG TAB PO (09:20)
[2017-07-13] MEDS: METOPROLOL SUCC (TopROL XL) 50MG **XL** TAB PO (09:20)
[2017-07-13] MEDS: ENOXAPARIN 40 MG/0.4 ML SYRINGE (J1650) SC (09:21)
[2017-07-13 10:11] LABS: QUANTIFERON GOLD TB Negative (Negative); TB Test (QFT) Antigen 0.03 IU/mL (.); TB Test (QFT) Mitogen >10.00 IU/mL (.); TB Test (QFT) Nil 0.03 IU/mL (.)
== END 2017-07-13 10:15 | disposition home or self-care (01) | DRG 199 ==
LOC: M ED INP 07-11 06:26 → M PED 07-11 10:53 → M ED 21:40
DX: I16.0 Hypertensive urgency (principal); R04.2 Hemoptysis; J44.9 Chronic obstructive pulmonary disease, unspecified; E11.9 Type 2 diabetes mellitus without complications; R07.89 Other chest pain; K21.9 Gastro-esophageal reflux disease without esophagitis; G43.909 Migraine, unspecified, not intractable, without status migrainosus; I10 Essential (primary) hypertension; Z87.891 Personal history of nicotine dependence; Z79.82 Long term (current) use of aspirin; Z79.4 Long term (current) use of insulin; Z79.899 Other long term (current) drug therapy

== ENCOUNTER → 2017-08-02 | Outpatient (REF) | payer OTHER ==
[2017-08-02 12:47] LABS: MAU/CREAT RATIO 19.5 MCG/MG (0.0-30.0)
[2017-08-02 12:58] LABS: ESTIMATED AVERAGE GLUCOSE 171 MG/DL (60-110); HEMOGLOBIN A1c 7.6 %
== END ==
LOC: M SFHCPLAZ 09:27
DX: E11.8 Type 2 diabetes mellitus with unspecified complications (principal)

== ENCOUNTER → 2017-08-30 | Outpatient (REF) | payer OTHER ==
[2017-08-30 17:39] LABS: CPK CREATINE PHOSPHOKINASE 155 U/L (39-308); TROPONIN I < 0.02 NG/ML (< 0.10)
[2017-08-30 17:40] LABS: CK-MB VALUE MASS < 1.0 NG/ML (<3.6); MB/CK RELATIVE INDEX 0.64 (< OR =4)
== END ==
LOC: M SFHCPLAZ 10:22
DX: R07.9 Chest pain, unspecified (principal)

== ENCOUNTER → 2017-09-15 | Outpatient (CLI) | payer OTHER ==
[2017-09-15 11:21] LABS: CHOLESTEROL LEVEL 103 MG/DL (<200); CHOLESTEROL RISK RATIO 3.029 (<5); HDL CHOLESTEROL 34 MG/DL (>40); LDL CHOLESTEROL 41.4 MG/DL (<100); NON-HDL-C 69 MG/DL; TRIGLYCERIDES LEVEL 138 MG/DL (<150)
== END ==
LOC: M LAB 09:50
DX: R07.2 Precordial pain (principal)
CPT/HCPCS: 80061

== ENCOUNTER → 2017-09-21 | Outpatient (CLI) | payer OTHER ==
[~2017-09-21] MED LIST changes: -ADV100INH INH; -ALBU17IN INH; -AMOX500T PO; -ASPI81CH32 PO; -AVEL1TAB3 PO; -BENZ100C5 PO; -CHLO125TA PO; -COMBAER6 INH; -HYDR-3713 PO; -IBUP-1114 PO; -ISON300T4 PO; -LISI-538 PO; -MAPA500C PO; +METHACHOLINE KIT (J7674); +METHACHOLINE KIT (J7674) INH; -NICO7DIS2 TD; -OMEP40CA2 PO; -SUCR1TAB56 PO; -TESS100C PO; -VARE05TA PO; -VITA50TA43 PO; -nicotine gum XX
== END ==
LOC: M CARPUL 12:53
DX: R07.9 Chest pain, unspecified (principal)
CPT/HCPCS: J7674

== ENCOUNTER → 2017-09-28 | Outpatient (CLI) | payer OTHER | LOC: M CARPUL 08:38 | DX: R07.9 Chest pain, unspecified (principal) | CPT/HCPCS: 94070 ==

== ENCOUNTER → 2017-10-06 | Outpatient (REF) | payer OTHER ==
[2017-10-10 00:11] LABS: D001-IgE D pteronyssinus <0.10 kU/L (Class 0); E001-IgE Cat Epith/Dander < 0.10 kU/L (Class 0); E005-IgE Dog Dander < 0.10 kU/L (Class 0); G002-IgE Bermuda Grass < 0.10 kU/L (Class 0); G008-IgE Kentucky Bluegrass < 0.10 kU/L (Class 0); M001-IgE Penicillium chrysogen < 0.10 kU/L (Class 0); M002 IgE Cladosporium herbaru < 0.10 kU/L (Class 0); M003 IgE Aspergillus fumigatu < 0.10 kU/L (Class 0); M006-IgE Alternaria alternata < 0.10 kU/L (Class 0); T001-IgE Maple/Box Elder < 0.10 kU/L (Class 0); T003-IgE Common Silver Birch < 0.10 kU/L (Class 0); T006-IgE Cedar, Mountain < 0.10 kU/L (Class 0); T007-IgE Oak, White < 0.10 kU/L (Class 0); T008-IgE Elm, American < 0.10 kU/L (Class 0); T015-IgE Ash, White < 0.10 kU/L (Class 0); T041-IgE Hickory, White < 0.10 kU/L (Class 0); T070-IgE White Mulberry < 0.10 kU/L (Class 0); W001-IgE Ragweed, Short < 0.10 kU/L (Class 0); W009-IgE Plantain, English < 0.10 kU/L (Class 0); W014-IgE Pigweed, Rough < 0.10 kU/L (Class 0); W018-IgE Sheep Sorrel < 0.10 kU/L (Class 0)
== END ==
LOC: M SFHCPLAZ 11:14
DX: J44.9 Chronic obstructive pulmonary disease, unspecified (principal)

== ENCOUNTER → 2017-11-15 | Outpatient (CLI) | payer OTHER | LOC: M SLEEP HO 08:53 | DX: G47.30 Sleep apnea, unspecified (principal) | CPT/HCPCS: G0399 ==

== ENCOUNTER 2017-12-26 15:41 | Emergency (ER) | payer OTHER ==
[2017-12-26 16:30] LABS: BASO # 0.1 10^3/uL (0.0-0.2); BASO % 0.7 % (0.0-1.0); EOS # 0.1 10^3/uL (0.0-0.50); EOS % 1.3 % (0.0-3.0); HEMOGLOBIN 13.4 g/dl (13.5-17.5); IMMATURE GRANULOCYTE % 0.4 % (0-3.0); LYMPH # 2.4 10^3/uL (1.5-4.5); LYMPH % 32.6 % (24.0-44.0); MEAN CORPUSCULAR HEMOGLOBIN 30.3 pg (27.0-33.0); MEAN CORPUSCULAR HGB CONC 35.3 g/dl (32.0-36.5); MONO # 0.9 10^3/uL (0.0-0.8); MONO % 12.2 % (0.0-5.0); NEUTROPHILS # 3.8 10^3/uL (1.8-7.7); NEUTROPHILS % 52.8 % (36.0-66.0); PLATELET COUNT, AUTOMATED 213 10^3/uL (150-450); RED BLOOD COUNT 4.42 10^6/uL (4.30-6.10); RED CELL DISTRIBUTION WIDTH 12.9 % (11.5-14.5); WHITE BLOOD COUNT 7.2 10^3/uL (4.0-10.0)
[2017-12-26 16:32] LABS: VENOUS BASE EXCESS 2.9 (-2.0-2.0); VENOUS HCO3 27.6 MEQ/L (23.0-27.0); VENOUS O2 SATURATION 99.1 % (60.0-80.0); VENOUS PARTIAL PRESSURE CO2 42.7 mmHg (38.0-50.0); VENOUS PARTIAL PRESSURE O2 172.9 mmHg (30.0-50.0); VENOUS PH 7.428 UNITS (7.330-7.430); VENOUS TOTAL CO2 28.9 MEQ/L (24.0-28.0)
[2017-12-26 16:46] LABS: PARTIAL THROMBOPLASTIN TIME 28.4 SECONDS (25.4-37.6)
[2017-12-26 17:08] LABS: ANION GAP 7 MEQ/L (8-16); BLOOD UREA NITROGEN 8 MG/DL (7-18); CALCIUM LEVEL 9.1 MG/DL (8.5-10.1); CARBON DIOXIDE LEVEL 28 MEQ/L (21-32); CHLORIDE LEVEL 106 MEQ/L (98-107); CK-MB VALUE MASS < 1.0 NG/ML (<3.6); CPK CREATINE PHOSPHOKINASE 257 U/L (39-308); CREATININE FOR GFR 0.98 MG/DL (0.70-1.30); GLOMERULAR FILTRATION RATE > 60.0 (>60); GLUCOSE, FASTING 98 MG/DL (70-100); MB/CK RELATIVE INDEX 0.39 (< OR =4); POTASSIUM SERUM 3.7 MEQ/L (3.5-5.1); SODIUM LEVEL 141 MEQ/L (136-145); TROPONIN I < 0.02 NG/ML (< 0.10)
[2017-12-26] MEDS: cloNIDine 0.2 MG TAB PO (19:08)
== END 2017-12-26 20:59 | disposition home or self-care (01) ==
LOC: M ED 15:41
DX: I10 Essential (primary) hypertension (principal); E11.9 Type 2 diabetes mellitus without complications; K21.9 Gastro-esophageal reflux disease without esophagitis; F32.9 Major depressive disorder, single episode, unspecified; J44.9 Chronic obstructive pulmonary disease, unspecified; Z79.899 Other long term (current) drug therapy; Z79.4 Long term (current) use of insulin; Z79.51 Long term (current) use of inhaled steroids
CPT/HCPCS: 71045

== ENCOUNTER 2017-12-27 15:23 | Emergency (ER) | payer OTHER | END 2017-12-27 17:47 | disposition home or self-care (01) | LOC: M ED 15:23 | DX: I10 Essential (primary) hypertension (principal); E11.9 Type 2 diabetes mellitus without complications; F32.9 Major depressive disorder, single episode, unspecified; G43.909 Migraine, unspecified, not intractable, without status migrainosus; J44.9 Chronic obstructive pulmonary disease, unspecified; Z79.899 Other long term (current) drug therapy; Z79.82 Long term (current) use of aspirin; Z79.51 Long term (current) use of inhaled steroids; Z79.4 Long term (current) use of insulin | CPT/HCPCS: 99284 ==

== ENCOUNTER → 2018-01-04 | Outpatient (CLI) | payer OTHER | LOC: M SLEEP 19:07 | DX: G47.33 Obstructive sleep apnea (adult) (pediatric) (principal) | CPT/HCPCS: 95811 ==

== ENCOUNTER → 2018-01-31 | Outpatient (REF) | payer OTHER ==
[2018-01-31 12:13] LABS: ALBUMIN 4.5 GM/DL (3.2-5.2); ALBUMIN/GLOBULIN RATIO 1.18 (1.00-1.93); ALKALINE PHOSPHATASE 69 U/L (45-117); ALT/SGPT 67 U/L (12-78); ANION GAP 7 MEQ/L (8-16); AST/SGOT 40 U/L (7-37); BILIRUBIN,TOTAL 0.3 MG/DL (0.2-1.0); BLOOD UREA NITROGEN 9 MG/DL (7-18); CALCIUM LEVEL 9.5 MG/DL (8.5-10.1); CARBON DIOXIDE LEVEL 28 MEQ/L (21-32); CHLORIDE LEVEL 102 MEQ/L (98-107); CREATININE FOR GFR 1.21 MG/DL (0.70-1.30); GLOMERULAR FILTRATION RATE > 60.0 (>60); GLUCOSE, FASTING 204 MG/DL (70-100); SODIUM LEVEL 137 MEQ/L (136-145); TOTAL PROTEIN 8.3 GM/DL (6.4-8.2)
[2018-01-31 12:24] LABS: BASO % 0.6 % (0.0-1.0); EOS # 0.1 10^3/uL (0.0-0.50); HEMATOCRIT 42.4 % (42.0-52.0); HEMOGLOBIN 14.4 g/dl (13.5-17.5); IMMATURE GRANULOCYTE % 0.3 % (0-3.0); LYMPH # 2.5 10^3/uL (1.5-4.5); LYMPH % 38.8 % (24.0-44.0); MEAN CORPUSCULAR HEMOGLOBIN 30.1 pg (27.0-33.0); MEAN CORPUSCULAR VOLUME 88.5 fl (80.0-96.0); MONO # 0.8 10^3/uL (0.0-0.8); MONO % 12.2 % (0.0-5.0); NEUTROPHILS % 46.1 % (36.0-66.0); PLATELET COUNT, AUTOMATED 198 10^3/uL (150-450); RED BLOOD COUNT 4.79 10^6/uL (4.30-6.10); WHITE BLOOD COUNT 6.5 10^3/uL (4.0-10.0)
[2018-01-31 12:57] LABS: ESTIMATED AVERAGE GLUCOSE 192 MG/DL (60-110); HEMOGLOBIN A1c 8.3 %
== END ==
LOC: M SFHCPLAZ 08:35
DX: E11.69 Type 2 diabetes mellitus with other specified complication (principal); I10 Essential (primary) hypertension

== ENCOUNTER 2018-02-06 08:57 | Emergency (ER) | payer OTHER | END 2018-02-06 10:28 | disposition home or self-care (01) | LOC: M ED 08:57 | DX: K64.8 Other hemorrhoids (principal); E10.9 Type 1 diabetes mellitus without complications; I10 Essential (primary) hypertension; J44.9 Chronic obstructive pulmonary disease, unspecified; J45.909 Unspecified asthma, uncomplicated; F33.9 Major depressive disorder, recurrent, unspecified; K21.9 Gastro-esophageal reflux disease without esophagitis; Z79.82 Long term (current) use of aspirin; Z79.4 Long term (current) use of insulin; Z87.891 Personal history of nicotine dependence | CPT/HCPCS: 99283 ==

== ENCOUNTER → 2018-02-28 | Outpatient (REF) | payer OTHER ==
[~2018-02-28] MED LIST changes: +ADV100INH INH; +ALBU17IN INH; +AMIT10TA PO; +AMIT25TA PO; +AMOX500T PO; +ASPI81CH32 PO; +ATEN25TA PO; +AVEL1TAB3 PO; +BACL10TA2 PO; +BENZ-18 PO; +BREO1INH INH; +CHLO125TA PO; +CHLO25TA PO; +CITA10TA5 PO; +CLEO300C2 PO; +COMBAER6 INH; +DILT120C82 PO; +GLUC4CHW19 PO; +HYDR-3713 PO; +IBUP-1114 PO; +IBUP40TA PO; +IMIT50TA PO; +INSUDET SC; +INSUHUMDS SC; +IRBE300T10 PO; +ISON300T4 PO; +LISI-538 PO; +LISI10TA4 PO; +MAPA500C PO; +MAPA500T17 PO; +MELO7.5T7 PO; +METF500T13 PO; -METHACHOLINE KIT (J7674); -METHACHOLINE KIT (J7674) INH; +METO1TAB7 PO; +NICO7DIS2 TD; +NORCOTAB PO; +OMEP40CA2 PO; +PROA1AER2 INH; +PROC2.5C TOP; +PROP10TA56 PO; +SUCR1TAB56 PO; +TESS100C PO; +TOPA100T12 PO; +TYLE325C PO; +TYLE325T5 PO; +VARE05TA PO; +VITA50TA43 PO; +[UNRECOGNIZED DRUG - REMARK]; +nicotine gum XX
[2018-02-28 13:37] LABS: BASO # 0.1 10^3/uL (0.0-0.2); BASO % 0.8 % (0.0-1.0); EOS # 0.1 10^3/uL (0.0-0.50); EOS % 1.7 % (0.0-3.0); HEMOGLOBIN 13.9 g/dl (13.5-17.5); LYMPH # 2.5 10^3/uL (1.5-4.5); LYMPH % 37.7 % (24.0-44.0); MEAN CORPUSCULAR HEMOGLOBIN 30.2 pg (27.0-33.0); MEAN CORPUSCULAR HGB CONC 33.9 g/dl (32.0-36.5); MEAN CORPUSCULAR VOLUME 89.1 fl (80.0-96.0); MONO # 0.7 10^3/uL (0.0-0.8); MONO % 10.7 % (0.0-5.0); NEUTROPHILS # 3.2 10^3/uL (1.8-7.7); NEUTROPHILS % 48.5 % (36.0-66.0); PLATELET COUNT, AUTOMATED 219 10^3/uL (150-450); WHITE BLOOD COUNT 6.5 10^3/uL (4.0-10.0)
[2018-03-04 00:25] LABS: ASPERGILLUS FLAVUS ABY Negative (Neg:<1:1); ASPERGILLUS FUMIGATUS ABY Negative (Neg:<1:1); ASPERGILLUS NIGER ABY Negative (Neg:<1:1); D001-IgE D pteronyssinus <0.10 kU/L (Class 0); E001-IgE Cat Epith/Dander < 0.10 kU/L (Class 0); E005-IgE Dog Dander < 0.10 kU/L (Class 0); G002-IgE Bermuda Grass < 0.10 kU/L (Class 0); G008-IgE Kentucky Bluegrass < 0.10 kU/L (Class 0); M001-IgE Penicillium chrysogen < 0.10 kU/L (Class 0); M002 IgE Cladosporium herbaru < 0.10 kU/L (Class 0); M003 IgE Aspergillus fumigatu < 0.10 kU/L (Class 0); M006-IgE Alternaria alternata < 0.10 kU/L (Class 0); T001-IgE Maple/Box Elder < 0.10 kU/L (Class 0); T003-IgE Common Silver Birch < 0.10 kU/L (Class 0); T006-IgE Cedar, Mountain < 0.10 kU/L (Class 0); T007-IgE Oak, White < 0.10 kU/L (Class 0); T008-IgE Elm, American < 0.10 kU/L (Class 0); T015-IgE Ash, White < 0.10 kU/L (Class 0); T041-IgE Hickory, White < 0.10 kU/L (Class 0); T070-IgE White Mulberry < 0.10 kU/L (Class 0); W001-IgE Ragweed, Short < 0.10 kU/L (Class 0); W009-IgE Plantain, English < 0.10 kU/L (Class 0); W014-IgE Pigweed, Rough < 0.10 kU/L (Class 0); W018-IgE Sheep Sorrel < 0.10 kU/L (Class 0)
== END ==
LOC: M LAB REF 12:45
PROVIDERS: ATTEND Internal Medicine Pulmonary Disease
DX: J45.40 Moderate persistent asthma, uncomplicated (principal)

== ENCOUNTER → 2018-04-10 | Outpatient (CLI) | payer OTHER ==
[~2018-04-10] MED LIST changes: -MAPA500T17 PO; +MAPA500T2 PO
--- NOTE | 2018-04-10 11:04 | REP ---
Clinical: Sleep apnea . Comparison: 12/26/2017 . Technique: PA and lateral. Findings: The mediastinum and cardiac silhouette are normal. The lung mariano are clear and without acute consolidation, effusion, or pneumothorax. The skeletal structures are intact and normal. Impression: 1. No acute cardiopulmonary process. Electronically Signed by Beto Reynolds MD 04/10/2018 10:55 A
== END ==
LOC: M SMT 10:23
PROVIDERS: ATTEND Internal Medicine Pulmonary Disease
DX: G47.33 Obstructive sleep apnea (adult) (pediatric) (principal)

== ENCOUNTER 2018-04-21 08:28 | Emergency (ER) | payer OTHER ==
[~2018-04-21] VITALS: Ht 180.3 cm; Wt 86.3 kg
[2018-04-21] MEDS ORDERED: VENTAER (08:55)
[2018-04-21] MEDS ORDERED: HYDR-3363 (08:55)
[2018-04-21] MEDS ORDERED: BASA100I (08:55)
[2018-04-21] MEDS ORDERED: ADV500INH INH (08:55)
[2018-04-21] MEDS ORDERED: TRAZ-160 (08:55)
[2018-04-21] MEDS ORDERED: CITA40TA4 (08:55)
[2018-04-21] MEDS ORDERED: ATEN50TA2 (08:55)
--- NOTE | 2018-04-21 09:30 | REP ---
CT Head without contrast HISTORY: Headache COMPARISON: 02/16/2017 There is no intraparenchymal hemorrhage, acute infarct, mass or midline shift. The ventricular system is normal in appearance. There is no extra cerebral collection. There is no fracture. The visualized sinuses are clear. IMPRESSION: There is no intracranial lesion. Electronically Signed by Jean Ballard MD 04/21/2018 09:22 A
[2018-04-21 09:38] LABS: HEMATOCRIT 37.8 % (42.0-52.0); HEMOGLOBIN 13.1 g/dl (13.5-17.5); MEAN CORPUSCULAR HEMOGLOBIN 30.3 pg (27.0-33.0); MEAN CORPUSCULAR HGB CONC 34.7 g/dl (32.0-36.5); MEAN CORPUSCULAR VOLUME 87.5 fl (80.0-96.0); PLATELET COUNT, AUTOMATED 196 10^3/uL (150-450); RED BLOOD COUNT 4.32 10^6/uL (4.30-6.10); WHITE BLOOD COUNT 5.8 10^3/uL (4.0-10.0)
[2018-04-21] MEDS ORDERED: CHLORTHALIDONE 25 MG TAB PO ONE (09:45)
[2018-04-21] MEDS ORDERED: ATENOLOL 50 MG TAB PO ONE (09:45)
[2018-04-21 10:45] LABS: BLOOD UREA NITROGEN 7 MG/DL (7-18); CALCIUM LEVEL 8.9 MG/DL (8.5-10.1); CARBON DIOXIDE LEVEL 28 MEQ/L (21-32); CHLORIDE LEVEL 107 MEQ/L (98-107); CREATININE FOR GFR 1.03 MG/DL (0.70-1.30); GLOMERULAR FILTRATION RATE > 60.0 (>60); GLUCOSE, FASTING 167 MG/DL (70-100); POTASSIUM SERUM 3.2 MEQ/L (3.5-5.1); SODIUM LEVEL 141 MEQ/L (136-145); THYROID STIMULATING HORMONE 0.918 uIU/ML (0.358-3.740)
[2018-04-21 11:14] LABS: HEMOGLOBIN A1c 8.9 %
[2018-04-21] MEDS ORDERED: IRBESARTAN 150 MG TAB PO ONE (11:45)
[2018-04-21] MEDS ORDERED: ACETAMINOPHEN TAB 650MG DOSE (2X325MG) As Ordered ONE (12:52)
[2018-04-21] MEDS ORDERED: ACETAMINOPHEN TAB 650MG DOSE (2X325MG) PO ONE (13:00)
[2018-04-21] MEDS ORDERED: cloNIDine 0.2 MG TAB PO ONE (13:15)
--- NOTE | 2018-04-21 13:17 | ECGEPIP ---
Stationary ECG Study [facility] - ED Test Date: 2018-04-21 Pat Name: PINKY CANNON Department: Room: - Gender: M Clinic Physician Director: CHELE : 1975 Requested By: Noe Garcia Order Number: [id number] Reading MD: Betzy Granado Measurements Intervals [place] Rate: 84 P: 70 KS: 146 QRS: 51 QRSD: 91 T: 22 QT: 371 QTc: 440 Interpretive Statements SINUS RHYTHM SIMILAR 12/26/17 Electronically Signed On 04-21-2018 13:17:34 EST by Betzy Granado
[2018-04-21 13:49] VITALS: BP 177/104
[2018-04-21 14:47] LABS: AMPHETAMINES LEVEL URINE NEGATIVE (NEGATIVE); BARBITURATES URINE NEGATIVE (NEGATIVE); BENZODIAZEPINES URINE NEGATIVE (NEGATIVE); CANNABINOIDS URINE POSITIVE (NEGATIVE); COCAINE METABOLITE URINE NEGATIVE (NEGATIVE); METHADONE URINE NEGATIVE (NEGATIVE); OPIATES URINE NEGATIVE (NEGATIVE); PHENCYCLIDINE URINE NEGATIVE (NEGATIVE)
[2018-04-21] MEDS ORDERED: LABETALOL HCL 100 MG/20 ML VIAL IV STA (15:59)
[2018-04-21] MEDS ORDERED: LABETALOL 200 MG TAB PO ONE (16:00)
[2018-04-21] MEDS ORDERED: LABE20TAB PO ×2 (16:14→16:16)
[2018-04-21] MEDS ORDERED: POTASSIUM CHLORIDE 10 MEQ SR TABLET PO ONE (16:30)
[2018-04-21 16:47] VITALS: BP 136/94
== END 2018-04-21 16:57 | disposition home or self-care (01) ==
LOC: M ED 08:28
DX: I10 Essential (primary) hypertension (principal); E11.9 Type 2 diabetes mellitus without complications; J44.9 Chronic obstructive pulmonary disease, unspecified; K21.9 Gastro-esophageal reflux disease without esophagitis; G43.909 Migraine, unspecified, not intractable, without status migrainosus; Z72.0 Tobacco use; Z91.19 Patient's noncompliance with other medical treatment and regimen; Z79.82 Long term (current) use of aspirin; Z79.4 Long term (current) use of insulin; Z79.899 Other long term (current) drug therapy

== ENCOUNTER → 2018-04-25 | Outpatient (REF) | payer OTHER ==
[~2018-04-25] MED LIST changes: +ADV500INH INH; +ATEN50TA2; +BASA100I; +CITA40TA4; +HYDR-3363; +LABE20TAB PO; +TRAZ-160; +VENTAER
[2018-04-25 11:58] LABS: BASO % 0.5 % (0.0-1.0); EOS # 0.1 10^3/uL (0.0-0.50); EOS % 1.6 % (0.0-3.0); HEMATOCRIT 39.6 % (42.0-52.0); HEMOGLOBIN 13.4 g/dl (13.5-17.5); LYMPH # 2.4 10^3/uL (1.5-4.5); LYMPH % 30.9 % (24.0-44.0); MEAN CORPUSCULAR HEMOGLOBIN 30.5 pg (27.0-33.0); MEAN CORPUSCULAR HGB CONC 33.8 g/dl (32.0-36.5); MONO # 0.8 10^3/uL (0.0-0.8); MONO % 10.9 % (0.0-5.0); NEUTROPHILS # 4.3 10^3/uL (1.8-7.7); NEUTROPHILS % 55.6 % (36.0-66.0); PLATELET COUNT, AUTOMATED 211 10^3/uL (150-450); WHITE BLOOD COUNT 7.7 10^3/uL (4.0-10.0)
[2018-04-25 12:24] LABS: ALBUMIN 3.9 GM/DL (3.2-5.2); ALT/SGPT 51 U/L (12-78); BILIRUBIN,TOTAL 0.3 MG/DL (0.2-1.0); BLOOD UREA NITROGEN 9 MG/DL (7-18); CALCIUM LEVEL 9.2 MG/DL (8.5-10.1); CARBON DIOXIDE LEVEL 27 MEQ/L (21-32); CHLORIDE LEVEL 102 MEQ/L (98-107); CREATININE FOR GFR 1.02 MG/DL (0.70-1.30); FREE T4 0.94 NG/DL (0.76-1.46); GLOMERULAR FILTRATION RATE > 60.0 (>60); GLUCOSE, FASTING 211 MG/DL (70-100); POTASSIUM SERUM 4.2 MEQ/L (3.5-5.1); SODIUM LEVEL 138 MEQ/L (136-145); THYROID STIMULATING HORMONE 0.557 uIU/ML (0.358-3.740); TOTAL PROTEIN 7.5 GM/DL (6.4-8.2)
[2018-04-25 12:28] LABS: HEMOGLOBIN A1c 9.1 %
== END ==
LOC: M SFHCPLAZ 09:19
PROVIDERS: ATTEND Physician Assistant Medical
DX: I10 Essential (primary) hypertension (principal); F32.9 Major depressive disorder, single episode, unspecified; E11.69 Type 2 diabetes mellitus with other specified complication

== ENCOUNTER → 2018-04-27 | Outpatient (REF) | payer OTHER ==
[2018-04-27 13:53] LABS: CK-MB VALUE MASS < 1.0 NG/ML (<3.6); CPK CREATINE PHOSPHOKINASE 300 U/L (39-308); MB/CK RELATIVE INDEX 0.33 (< OR =4); TROPONIN I < 0.02 NG/ML (< 0.10)
== END ==
LOC: M SFHCPLAZ 11:00
PROVIDERS: ATTEND Physician Assistant Medical
DX: I10 Essential (primary) hypertension (principal)

== ENCOUNTER → 2018-05-17 | Outpatient (REF) | payer OTHER ==
[2018-05-23 14:48] LABS: A1A FOR PHENOTYPE 106 mg/dL (90-200)
== END ==
LOC: M LAB REF 13:09
PROVIDERS: ATTEND Internal Medicine Pulmonary Disease
DX: G47.33 Obstructive sleep apnea (adult) (pediatric) (principal)

== ENCOUNTER → 2018-05-19 | Outpatient (REF) | payer OTHER ==
[2018-05-19 13:03] LABS: APPEARANCE, URINE CLEAR (CLEAR); BACTERIA, URINE AUTO NEGATIVE (NEGATIVE); BILIRUBIN, URINE AUTO NEGATIVE (NEGATIVE); BLOOD, URINE BLOOD NEGATIVE (NEGATIVE); COLOR, URINE YELLOW (YELLOW); GLUCOSE, URINE (UA) AUTO 1+ mg/dL (NEGATIVE); KETONE, URINE AUTO TRACE mg/dL (NEGATIVE); LEUKOCYTE ESTERASE, URINE AUTO NEGATIVE (NEGATIVE); NITRITE, URINE AUTO NEGATIVE (NEGATIVE); PROTEIN, URINE AUTO NEGATIVE (NEGATIVE); RBC, URINE AUTO 1 /HPF (0-3); SQUAMOUS EPITHELIAL CELL UR AU 0 /HPF (0-6); UROBILINOGEN, URINE AUTO 0.2 mg/dL (0.0-2.0); WBC, URINE AUTO 2 /HPF (0-3)
== END ==
LOC: M SFHCPLAZ 12:14
PROVIDERS: ATTEND Physician Assistant Medical
DX: E11.69 Type 2 diabetes mellitus with other specified complication (principal)

== ENCOUNTER → 2018-05-22 | Outpatient (REF) | payer OTHER ==
[2018-05-22 11:06] LABS: BLOOD UREA NITROGEN 11 MG/DL (7-18); CARBON DIOXIDE LEVEL 27 MEQ/L (21-32); CHLORIDE LEVEL 101 MEQ/L (98-107); CREATININE FOR GFR 1.14 MG/DL (0.70-1.30); GLOMERULAR FILTRATION RATE > 60.0 (>60); GLUCOSE, FASTING 286 MG/DL (70-100); PHOSPHORUS LEVEL 3.9 MG/DL (2.5-4.9); POTASSIUM SERUM 3.9 MEQ/L (3.5-5.1); SODIUM LEVEL 138 MEQ/L (136-145)
== END ==
LOC: M LABDRAWP 09:03
PROVIDERS: ATTEND Physician Assistant
DX: I10 Essential (primary) hypertension (principal)

== ENCOUNTER 2018-06-29 08:22 | Emergency (ER) | payer OTHER ==
[~2018-06-29] VITALS: Ht 182.9 cm; Wt 84.1 kg
[~2018-06-29 08:22] MED LIST changes: -ASPI81CH32 PO; +ASPI81CH33 PO; -DILT120C82 PO; +DILT1CAP PO; +HYDR-3715 PO; +ISON300T18 PO; -ISON300T4 PO; -NORCOTAB PO
[2018-06-29] MEDS ORDERED: NS 1,000 ML IV ONE (09:15)
[2018-06-29] MEDS ORDERED: amLODIPine 5 MG TAB PO ONE (09:15)
[2018-06-29] MEDS ORDERED: LABETALOL 200 MG TAB PO ONE (09:15)
[2018-06-29] MEDS ORDERED: diphenhydrAMINE INJ 50MG/ML VIAL (J1200) IV ONE (09:15)
[2018-06-29] MEDS ORDERED: PROCHLORPERAZINE 10 MG/2 ML VIAL (J0780) IV ONE (09:15)
[2018-06-29] MEDS ORDERED: CHLORTHALIDONE 25 MG TAB PO ONE (09:15)
[2018-06-29] MEDS ORDERED: ACETAMINOPHEN 500 MG TAB PO ONE (09:15)
[2018-06-29 09:28] LABS: HEMOGLOBIN 15.5 g/dl (13.5-17.5); MEAN CORPUSCULAR HGB CONC 35.2 g/dl (32.0-36.5); MEAN CORPUSCULAR VOLUME 85.1 fl (80.0-96.0); PLATELET COUNT, AUTOMATED 236 10^3/uL (150-450); RED BLOOD COUNT 5.17 10^6/uL (4.30-6.10); WHITE BLOOD COUNT 6.2 10^3/uL (4.0-10.0)
[2018-06-29 09:33] VITALS: BP 138/87
--- NOTE | 2018-06-29 09:38 | REP ---
PA and lateral chest: Comparison is 04/10/2018. The lung mariano are clear. The cardiac size is normal. The chidi, mediastinum, and skeletal structures are unremarkable. There is a loop recorder superimposed over the left hemithorax, unchanged. Impression: Negative PA and lateral chest. There is no interval change. Electronically Signed by Dawson Napoles MD 06/29/2018 09:31 A
[2018-06-29 09:59] LABS: ALBUMIN 4.6 GM/DL (3.2-5.2); ALT/SGPT 67 U/L (12-78); BILIRUBIN,DIRECT < 0.1 MG/DL (0.0-0.2); BILIRUBIN,TOTAL 0.3 MG/DL (0.2-1.0); BLOOD UREA NITROGEN 13 MG/DL (7-18); CALCIUM LEVEL 9.7 MG/DL (8.5-10.1); CARBON DIOXIDE LEVEL 27 MEQ/L (21-32); CHLORIDE LEVEL 99 MEQ/L (98-107); GLOMERULAR FILTRATION RATE > 60.0 (>60); GLUCOSE, FASTING 255 MG/DL (70-100); LIPASE 121 U/L (73-393); POTASSIUM SERUM 3.5 MEQ/L (3.5-5.1); SODIUM LEVEL 133 MEQ/L (136-145); TOTAL PROTEIN 9.2 GM/DL (6.4-8.2)
[2018-06-29] MEDS ORDERED: PENI500T PO (10:17)
[2018-06-29 10:25] VITALS: BP 123/82
== END 2018-06-29 10:27 | disposition home or self-care (01) ==
LOC: M ED 08:22
DX: G43.909 Migraine, unspecified, not intractable, without status migrainosus (principal); J20.0 Acute bronchitis due to Mycoplasma pneumoniae; I16.0 Hypertensive urgency; E10.9 Type 1 diabetes mellitus without complications; I10 Essential (primary) hypertension; J44.9 Chronic obstructive pulmonary disease, unspecified; K21.9 Gastro-esophageal reflux disease without esophagitis; R76.11 Nonspecific reaction to tuberculin skin test without active tuberculosis; G47.33 Obstructive sleep apnea (adult) (pediatric); Z79.899 Other long term (current) drug therapy; Z79.82 Long term (current) use of aspirin; Z79.4 Long term (current) use of insulin
CPT/HCPCS: 71046; 80048; 80076; 83690; 85027; 87880; 96374; 96375; 99284; J0780; J1200

== ENCOUNTER 2018-07-20 18:06 | Emergency (ER) | payer OTHER ==
[~2018-07-20] VITALS: Ht 182.9 cm; Wt 84.3 kg
[~2018-07-20 18:06] MED LIST changes: +PENI500T PO; -TRAZ-160; +TRAZ-252
[2018-07-20] MEDS ORDERED: NS 1,000 ML IV SCH (18:37)
[2018-07-20 18:41] LABS: VENOUS O2 SATURATION 96.7 % (60.0-80.0); VENOUS PARTIAL PRESSURE CO2 35.6 mmHg (38.0-50.0); VENOUS PARTIAL PRESSURE O2 90.2 mmHg (30.0-50.0); VENOUS PH 7.408 UNITS (7.330-7.430); VENOUS STANDARD HCO3 22.8 MEQ/L; VENOUS TOTAL CO2 23.1 MEQ/L (24.0-28.0)
[2018-07-20 18:46] LABS: BASO # 0.1 10^3/uL (0.0-0.2); BASO % 0.6 % (0.0-1.0); EOS # 0.1 10^3/uL (0.0-0.50); EOS % 1.6 % (0.0-3.0); HEMATOCRIT 43.8 % (42.0-52.0); HEMOGLOBIN 15.4 g/dl (13.5-17.5); LYMPH # 3.6 10^3/uL (1.5-4.5); LYMPH % 45.1 % (24.0-44.0); MEAN CORPUSCULAR HEMOGLOBIN 29.6 pg (27.0-33.0); MEAN CORPUSCULAR HGB CONC 35.2 g/dl (32.0-36.5); MEAN CORPUSCULAR VOLUME 84.1 fl (80.0-96.0); MONO # 0.8 10^3/uL (0.0-0.8); MONO % 10.5 % (0.0-5.0); NEUTROPHILS # 3.3 10^3/uL (1.8-7.7); NEUTROPHILS % 41.6 % (36.0-66.0); PLATELET COUNT, AUTOMATED 258 10^3/uL (150-450); RED BLOOD COUNT 5.21 10^6/uL (4.30-6.10); WHITE BLOOD COUNT 7.9 10^3/uL (4.0-10.0)
[2018-07-20 19:17] LABS: HEMOGLOBIN A1c 10.7 %
[2018-07-20 19:19] LABS: ACETONE/KETONE 1.67 MG/DL (<2.81); ALBUMIN 4.2 GM/DL (3.2-5.2); ALT/SGPT 78 U/L (12-78); BILIRUBIN,DIRECT 0.2 MG/DL (0.0-0.2); BILIRUBIN,TOTAL 0.6 MG/DL (0.2-1.0); BLOOD UREA NITROGEN 14 MG/DL (7-18); CALCIUM LEVEL 9.8 MG/DL (8.5-10.1); CARBON DIOXIDE LEVEL 24 MEQ/L (21-32); CHLORIDE LEVEL 101 MEQ/L (98-107); CK-MB VALUE MASS < 1.0 NG/ML (<3.6); CPK CREATINE PHOSPHOKINASE 267 U/L (39-308); CREATININE FOR GFR 1.33 MG/DL (0.70-1.30); GLOMERULAR FILTRATION RATE > 60.0 (>60); GLUCOSE, FASTING 235 MG/DL (70-100); LIPASE 91 U/L (73-393); MB/CK RELATIVE INDEX 0.37 (< OR =4); POTASSIUM SERUM 3.7 MEQ/L (3.5-5.1); SODIUM LEVEL 134 MEQ/L (136-145); TOTAL PROTEIN 9.1 GM/DL (6.4-8.2)
[2018-07-20 19:44] LABS: VENOUS BASE EXCESS -4.6 (-2.0-2.0); VENOUS O2 SATURATION 98.8 % (60.0-80.0); VENOUS PARTIAL PRESSURE CO2 31.5 mmHg (38.0-50.0); VENOUS PARTIAL PRESSURE O2 140.6 mmHg (30.0-50.0); VENOUS PH 7.398 UNITS (7.330-7.430); VENOUS STANDARD HCO3 20.8 MEQ/L
[2018-07-20] MEDS ORDERED: ISOVUE-370 76% 100ML VIAL (Q9967) As Ordered ONE (20:05)
--- NOTE | 2018-07-20 21:17 | REPVR ---
EXAM: CT Angiography Chest With Contrast EXAM DATE/TIME: 07/20/2018 8:08 PM CLINICAL HISTORY: 43 years old, male; Other: Abd pain; Additional info: Abd pain, new lbbb TECHNIQUE: Imaging protocol: Axial computed tomographic angiography images of the chest with intravenous contrast using CT angiography protocol. Coronal and sagittal reformatted images were created and reviewed. 3D rendering: MIP reconstructed images were created and reviewed. Radiation optimization: All CT scans at this facility use at least one of these dose optimization techniques: automated exposure control; mA and/or kV adjustment per patient size (includes targeted exams where dose is matched to clinical indication); or iterative reconstruction. Contrast material: ISOVUE 370; Contrast volume: 100 ml; Contrast route: IV; COMPARISON: CT ANGIO CHEST 07/11/2017 12:49 PM FINDINGS: Pulmonary arteries: There is opacification of the pulmonary arteries and no evidence of pulmonary embolus. Aorta: There is mild ectasia of the first portion of the descending aorta measuring 3.2 CM. this is unchanged since the examination of 07/11/2017. There is no evidence of mediastinal lymphadenopathy. Lungs: Clear appearing lungs. Pleural space: Normal. No pneumothorax. No pleural effusion. Heart: Normal sized heart. Bones/joints: There is no evidence of bony abnormality. IMPRESSION: Ectasia of the proximal descending aorta measuring 3.2 CM in greatest dimension There is a 5 CM linear metallic implant in the anterior left chest wall. Electronically signed by: Lalito Wilkins On 07/20/2018 21:17:44 PM
--- NOTE | 2018-07-20 21:24 | REPVR ---
EXAM: CT Abdomen and Pelvis With Contrast EXAM DATE/TIME: 07/20/2018 8:08 PM CLINICAL HISTORY: 43 years old, male; Abdominal pain; Generalized; Additional info: Abd pain, new lbbb TECHNIQUE: Imaging protocol: Axial computed tomography images of the abdomen and pelvis with intravenous contrast. Coronal and sagittal reformatted images were created and reviewed. Radiation optimization: All CT scans at this facility use at least one of these dose optimization techniques: automated exposure control; mA and/or kV adjustment per patient size (includes targeted exams where dose is matched to clinical indication); or iterative reconstruction. Contrast material: ISOVUE 370; Contrast volume: 100 ml; Contrast route: IV; COMPARISON: No relevant prior studies available. FINDINGS: ABDOMEN: Liver: There is severe fatty infiltration of the liver. Gallbladder and bile ducts: Normal appearing gallbladder. Pancreas: Normal pancreas. Spleen: Normal spleen. Adrenals: Normal adrenal glands. Kidneys and ureters: Normal. No hydronephrosis. Stomach and bowel: Normal-appearing small bowel. Appendix: The cecum and the appendix are at the right pelvis. Normal-appearing appendix. PELVIS: Bladder: Normal urinary bladder. Reproductive: Mild enlargement of the prostate. ABDOMEN and PELVIS: Intraperitoneal space: No evidence of free fluid in the abdomen or pelvis. Bones/joints: No acute fracture. No dislocation. Soft tissues: Unremarkable. Vasculature: There is calcifications of atherosclerotic plaque formation of the aorta. There is opacification of the aorta. Lymph nodes: There are small mesenteric lymph nodes. IMPRESSION: Severe fatty infiltration of the liver. Electronically signed by: Lalito Wilkins On 07/20/2018 21:23:41 PM
[2018-07-20] MEDS ORDERED: KETOROLAC 30 MG/ML VIAL (J1885) IV ONE (22:15)
[2018-07-20] MEDS ORDERED: METOCLOPRAMIDE INJ 10MG/2ML VIAL (J2765) IV ONE (22:15)
[2018-07-21] MEDS ORDERED: REGL10TA6 PO (01:05)
--- NOTE | 2018-07-21 01:12 | REP ---
Clinical: Cough . Comparison: 06/29/2018 . Technique: PA and lateral. Findings: The mediastinum and cardiac silhouette are normal. The lung mariano are clear and without acute consolidation, effusion, or pneumothorax. The skeletal structures are intact and normal. Loop recorder overlies the left hilum. Impression: 1. No acute cardiopulmonary process. Electronically Signed by Beto Reynolds MD 07/21/2018 01:04 A
[2018-07-21 01:16] VITALS: BP 129/95
--- NOTE | 2018-07-21 07:43 | ECGEPIP ---
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
== END 2018-07-21 01:20 | disposition home or self-care (01) ==
LOC: M ED 18:06
DX: K52.9 Noninfective gastroenteritis and colitis, unspecified (principal); I44.7 Left bundle-branch block, unspecified; I10 Essential (primary) hypertension; K21.9 Gastro-esophageal reflux disease without esophagitis; Z79.899 Other long term (current) drug therapy; Z79.4 Long term (current) use of insulin; Z79.82 Long term (current) use of aspirin; Z87.891 Personal history of nicotine dependence
CPT/HCPCS: 71046; 71275; 74177; 80048; 80076; 81001; 82010; 82550; 82553; 82803; 83036; 83690; 85025; 93005; 93041; 96361; 96374; 96375; 99284; J1885; J2765; Q9967

== ENCOUNTER → 2018-07-26 | Outpatient (CLI) | payer OTHER ==
[~2018-07-26] MED LIST changes: +REGL10TA6 PO; +TRAZ-160; -TRAZ-252
--- NOTE | 2018-07-27 12:43 | SLEEPCENT ---
DATE OF PROCEDURE: 07/26/2018 ORDERED BY: Dr. Drake Nocturnal polysomnography was performed for the titration of pressure therapy in this patient of bilevel device currently at 8/5. For testing a ResMed Quattro full-face mask of small size was used and initial bilevel pressure of 8/5 was applied to the circuit and the lights were extinguished. 6 hours and 38 minutes of data were reviewed. There were 310 minutes of sleep identified. Sleep latency was mildly prolonged 25.5 minutes. Rapid eye movement (REM) latency was normal at 96.5 minutes. Sleep architecture was fair with 2 REM cycles noted. Overall sleep efficiency was 79.4%. The electrocardiogram showed a sinus rhythm with an average heart rate of 80 beats per minute. Occasional premature ventricular contractions (PVCs) were noted. Electroencephalogram (EEG) showed normal waveforms for awake and sleep. Respiratory events were found best palliated with a bilevel pressure at 12 inspiratory over 8 expiratory with which the patient slept through REM without respiratory event or oxygen desaturation. IMPRESSION: Obstructive sleep apnea syndrome (G47.33). RECOMMENDATIONS: Nightly use of pressure therapy using a bilevel device bilevel inspiratory pressure of 12 over expiratory pressure of 8.
== END ==
LOC: M SLEEP 19:18
PROVIDERS: ATTEND Internal Medicine Pulmonary Disease
DX: G47.33 Obstructive sleep apnea (adult) (pediatric) (principal)

== ENCOUNTER → 2018-08-10 | Outpatient (CLI) | payer OTHER ==
[~2018-08-10] MED LIST changes: -TRAZ-160; +TRAZ-252
[2018-08-10 16:56] LABS: FREE T4 1.14 NG/DL (0.76-1.46); THYROID STIMULATING HORMONE 1.5 uIU/ML (0.358-3.740)
[2018-08-13 00:06] LABS: C-PEPTIDE 5.3 ng/mL (1.1-4.4); TESTOSTERONE FREE (DIRECT) 8.4 pg/mL (6.8-21.5)
== END ==
LOC: M WUC 12:32
PROVIDERS: ATTEND Physician Assistant Medical
DX: E29.1 Testicular hypofunction (principal); E11.69 Type 2 diabetes mellitus with other specified complication

== ENCOUNTER → 2018-08-18 | Outpatient (REF) | payer OTHER ==
[2018-08-20 00:06] LABS: C-PEPTIDE 2.8 ng/mL (1.1-4.4); TESTOSTERONE FREE (DIRECT) 7.9 pg/mL (6.8-21.5)
== END ==
LOC: M SFHCPLAZ 08:42
PROVIDERS: ATTEND Physician Assistant Medical
DX: E11.69 Type 2 diabetes mellitus with other specified complication (principal); E29.1 Testicular hypofunction

== ENCOUNTER → 2018-08-24 | Outpatient (REF) | payer OTHER ==
[2018-08-24 18:20] LABS: BASO # 0.1 10^3/uL (0.0-0.2); BASO % 0.7 % (0.0-1.0); EOS # 0.1 10^3/uL (0.0-0.50); EOS % 1.7 % (0.0-3.0); HEMATOCRIT 41.2 % (42.0-52.0); HEMOGLOBIN 14.2 g/dl (13.5-17.5); LYMPH # 3.1 10^3/uL (1.5-4.5); LYMPH % 45.2 % (24.0-44.0); MEAN CORPUSCULAR HGB CONC 34.5 g/dl (32.0-36.5); MEAN CORPUSCULAR VOLUME 86.9 fl (80.0-96.0); MONO # 0.6 10^3/uL (0.0-0.8); MONO % 9.1 % (0.0-5.0); NEUTROPHILS % 42.9 % (36.0-66.0); PLATELET COUNT, AUTOMATED 235 10^3/uL (150-450); RED BLOOD COUNT 4.74 10^6/uL (4.30-6.10); WHITE BLOOD COUNT 6.9 10^3/uL (4.0-10.0)
[2018-08-24 18:38] LABS: FREE T4 1.01 NG/DL (0.76-1.46); THYROID STIMULATING HORMONE 2.03 uIU/ML (0.358-3.740)
[2018-08-26 10:24] LABS: TESTOSTERONE FREE (DIRECT) 6.9 pg/mL (6.8-21.5)
== END ==
LOC: M SFHCPLAZ 15:03
PROVIDERS: ATTEND Physician Assistant Medical
DX: E29.1 Testicular hypofunction (principal)

== ENCOUNTER → 2018-09-20 | Outpatient (CLI) | payer OTHER ==
--- NOTE | 2018-09-20 11:07 | REP ---
NUCLEAR GASTRIC EMPTYING SCAN: Following the oral administration of 1.1 mCi technetium 99m sulfur colloid in two scrambled eggs and 6 ounces of water, multiple images of the upper abdomen are performed in the anterior and posterior projections for 90 minutes. The gastric activity is measured. At the end of 90 minutes, 42% of the ingested activity has emptied from the stomach. This gives a t1/2 of 111 minutes, which is above the normal value of 90 minutes. IMPRESSION: Slightly delayed gastric emptying. Electronically Signed by Dawson Grant MD 09/22/2018 12:26 P
== END ==
LOC: M RAD 07:28
PROVIDERS: ATTEND Physician Assistant Medical
DX: R14.0 Abdominal distension (gaseous) (principal); K30 Functional dyspepsia
CPT/HCPCS: 78264; A9541

== ENCOUNTER 2018-10-12 17:28 | Emergency (ER) | payer OTHER ==
[~2018-10-12] VITALS: Ht 180.3 cm; Wt 87.1 kg
[~2018-10-12 17:28] MED LIST changes: -HYDR-3363; +HYDR-3363 PO; -TRAZ-252; +TRAZ-252 PO
[2018-10-12] MEDS ORDERED: TRES1INJ2 SQ (17:45)
[2018-10-12] MEDS ORDERED: SPIR-10 PO (17:46)
--- NOTE | 2018-10-12 18:01 | REP ---
Clinical: Acute chest pain . Comparison: 07/20/2018 . Findings: The mediastinum and cardiac silhouette are stable and within normal limits for portable technique. The lung mariano are clear without acute consolidation, effusion, or pneumothorax. Skeletal structures are intact. Loop recorder noted. Impression: No acute cardiopulmonary process appreciated. Electronically Signed by Beto Reynolds MD 10/12/2018 05:53 P
[2018-10-12 18:14] LABS: BASO % 0.6 % (0.0-1.0); EOS # 0.1 10^3/uL (0.0-0.50); EOS % 1.6 % (0.0-3.0); HEMATOCRIT 38.7 % (42.0-52.0); HEMOGLOBIN 13.6 g/dl (13.5-17.5); LYMPH # 2.4 10^3/uL (1.5-4.5); LYMPH % 35.3 % (24.0-44.0); MEAN CORPUSCULAR HEMOGLOBIN 31.1 pg (27.0-33.0); MEAN CORPUSCULAR HGB CONC 35.1 g/dl (32.0-36.5); MEAN CORPUSCULAR VOLUME 88.6 fl (80.0-96.0); MONO # 0.5 10^3/uL (0.0-0.8); MONO % 7.8 % (0.0-5.0); NEUTROPHILS # 3.8 10^3/uL (1.8-7.7); NEUTROPHILS % 54.4 % (36.0-66.0); PLATELET COUNT, AUTOMATED 191 10^3/uL (150-450); RED BLOOD COUNT 4.37 10^6/uL (4.30-6.10); WHITE BLOOD COUNT 6.9 10^3/uL (4.0-10.0)
[2018-10-12 18:27] LABS: INR 0.99; PROTHROMBIN TIME 12.8 SECONDS (11.8-14.0)
[2018-10-12 18:33] LABS: ALT/SGPT 42 U/L (12-78); BILIRUBIN,TOTAL 0.2 MG/DL (0.2-1.0); BLOOD UREA NITROGEN 7 MG/DL (7-18); CALCIUM LEVEL 9.4 MG/DL (8.5-10.1); CARBON DIOXIDE LEVEL 28 MEQ/L (21-32); CHLORIDE LEVEL 106 MEQ/L (98-107); CK-MB VALUE MASS < 1.0 NG/ML (<3.6); CPK CREATINE PHOSPHOKINASE 183 U/L (39-308); CREATININE FOR GFR 1.04 MG/DL (0.70-1.30); GLOMERULAR FILTRATION RATE > 60.0 (>60); GLUCOSE, FASTING 202 MG/DL (70-100); LIPASE 124 U/L (73-393); MB/CK RELATIVE INDEX 0.55 (< OR =4); POTASSIUM SERUM 3.4 MEQ/L (3.5-5.1); SODIUM LEVEL 141 MEQ/L (136-145); TOTAL PROTEIN 8.1 GM/DL (6.4-8.2); TROPONIN I < 0.02 NG/ML (< 0.10)
[2018-10-12] MEDS ORDERED: ASPIRIN 81 MG CHEW TABLET PO ONE (20:00)
[2018-10-12] MEDS ORDERED: ISOVUE-370 76% 100ML VIAL (Q9967) As Ordered ONE (20:04)
[2018-10-12] MEDS: NITROGLYCERIN 0.4 MG SUBL TABLET SL PRN ×3 (20:10→20:20)
[2018-10-12 20:20] VITALS: BP 167/94
--- NOTE | 2018-10-12 20:52 | REPVR ---
EXAM: CT Angiography Chest With Contrast EXAM DATE/TIME: 10/12/2018 8:20 PM CLINICAL HISTORY: 43 years old, male; Chest pain; Type not specified; Additional info: R/O pe TECHNIQUE: Imaging protocol: Axial computed tomographic angiography images of the chest with intravenous contrast using CT angiography protocol. Coronal and sagittal reformatted images were created and reviewed. 3D rendering: MIP reconstructed images were created and reviewed. Radiation optimization: All CT scans at this facility use at least one of these dose optimization techniques: automated exposure control; mA and/or kV adjustment per patient size (includes targeted exams where dose is matched to clinical indication); or iterative reconstruction. Contrast material: ISOVUE 370;Contrast volume: 75 ml;Contrast route: IV; COMPARISON: CT ANGIO CHEST 07/20/2018 8:02 PM FINDINGS: Pulmonary arteries: No pulmonary emboli. Aorta: No aortic aneurysm. No aortic dissection. Lungs: Mild bilateral dependent atelectasis. Centrilobular and paraseptal emphysematous changes. No focal infiltrate, consolidation, or mass. Pleural space: No pneumothorax. No pleural effusion. Heart: No cardiomegaly. No pericardial effusion. Mediastinum: Mild thickening of the santa of the thoracic esophagus. Liver: Diffusely hypodense liver consistent with hepatic steatosis. Lymph nodes: Unremarkable. No enlarged lymph nodes. Bones/joints: No acute fracture. Normal alignment. Mild degenerative changes in the spine. Soft tissues: Unremarkable. IMPRESSION: 1. No pulmonary embolism. 2. Possible thoracic esophagitis. 3. Nonacute/incidental findings above. Electronically signed by: Errol Powell On 10/12/2018 20:51:48 PM
[2018-10-12] MEDS ORDERED: ACETAMINOPHEN TAB 650MG DOSE (2X325MG) PO ONE (21:00)
[2018-10-12 22:47] LABS: CK-MB VALUE MASS < 1.0 NG/ML (<3.6); CPK CREATINE PHOSPHOKINASE 151 U/L (39-308); MB/CK RELATIVE INDEX 0.66 (< OR =4); TROPONIN I < 0.02 NG/ML (< 0.10)
[2018-10-12 23:04] VITALS: BP 178/116
[2018-10-12] MEDS ORDERED: LABETALOL 200 MG TAB PO ONE (23:30)
--- NOTE | 2018-10-13 22:00 | ECGEPIP ---
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
--- NOTE | 2018-10-13 22:12 | ECGEPIP ---
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
--- NOTE | 2018-10-16 21:38 | ED PDOC ---
Post-Departure Follow-Up asiya zabala faxed formal report of cta chest for fu Ron Bell MD Oct 16, 2018 21:38
== END 2018-10-12 23:50 | disposition home or self-care (01) ==
LOC: M ED 17:28
DX: I10 Essential (primary) hypertension (principal); E10.9 Type 1 diabetes mellitus without complications; J44.9 Chronic obstructive pulmonary disease, unspecified; J45.909 Unspecified asthma, uncomplicated; E78.5 Hyperlipidemia, unspecified; K21.9 Gastro-esophageal reflux disease without esophagitis; F33.9 Major depressive disorder, recurrent, unspecified; Z79.899 Other long term (current) drug therapy; Z79.82 Long term (current) use of aspirin; Z79.4 Long term (current) use of insulin; Z87.891 Personal history of nicotine dependence
CPT/HCPCS: 36415; 71045; 71275; 80053; 82550; 82553; 83690; 85025; 85610; 93005; 93041; 94760; 99285; Q9967

== ENCOUNTER → 2018-12-05 | Outpatient (CLI) | payer OTHER ==
[~2018-12-05] MED LIST changes: +SPIR-10 PO; +TRES1INJ2 SQ
[2018-12-05 12:03] LABS: BLOOD UREA NITROGEN 14 MG/DL (7-18); CREATININE FOR GFR 1.09 MG/DL (0.70-1.30); GLOMERULAR FILTRATION RATE > 60.0 (>60)
== END ==
LOC: M WUC 09:56
PROVIDERS: ATTEND Psychiatry & Neurology Neurology
DX: I10 Essential (primary) hypertension (principal)

== ENCOUNTER 2018-12-15 11:26 | Emergency (ER) | payer OTHER ==
[~2018-12-15] VITALS: Ht 182.9 cm; Wt 86.1 kg
[~2018-12-15 11:26] MED LIST changes: -ACET-842 PO; -AMLO10TA5 PO; -ATEN100T PO; -ATOR40TA75 PO; -DIVA500T9 PO; -HYDR10TAB PO; -LABE200T32 PO; -MONT10TA2 PO; -TREL1AER PO
[2018-12-15] MEDS ORDERED: SPIR-10 PO (12:06)
[2018-12-15] MEDS ORDERED: DIVA500T9 PO (12:06)
[2018-12-15] MEDS ORDERED: TREL1AER PO (12:06)
[2018-12-15] MEDS ORDERED: LABE200T32 PO (12:06)
[2018-12-15] MEDS ORDERED: ACET-842 PO (12:06)
[2018-12-15] MEDS ORDERED: IBUP-1114 PO (12:06)
[2018-12-15] MEDS ORDERED: ATOR40TA75 PO (12:06)
[2018-12-15] MEDS ORDERED: ATEN100T PO (12:06)
[2018-12-15] MEDS ORDERED: AMLO10TA5 PO (12:06)
[2018-12-15] MEDS ORDERED: MONT10TA2 PO (12:06)
[2018-12-15] MEDS ORDERED: HYDR10TAB PO (12:06)
[2018-12-15] MEDS ORDERED: LABETALOL HCL 100 MG/20 ML VIAL IV STA ×2 (12:37→14:08)
[2018-12-15] MEDS ORDERED: NS 1,000 ML IV SCH (12:45)
[2018-12-15] MEDS ORDERED: diphenhydrAMINE INJ 50MG/ML VIAL (J1200) IV ONE (12:45)
[2018-12-15] MEDS ORDERED: METOCLOPRAMIDE INJ 10MG/2ML VIAL (J2765) IV ONE (12:45)
[2018-12-15] MEDS ORDERED: KETOROLAC 30 MG/ML VIAL (J1885) IV ONE (12:45)
[2018-12-15 12:53] LABS: BASO % 0.4 % (0.0-1.0); EOS # 0.1 10^3/uL (0.0-0.5); HEMATOCRIT 38.3 % (42.0-52.0); HEMOGLOBIN 13.3 g/dl (13.5-17.5); LYMPH # 2.3 10^3/uL (1.5-5.0); LYMPH % 32.8 % (24.0-44.0); MEAN CORPUSCULAR HEMOGLOBIN 30.2 pg (27.0-33.0); MEAN CORPUSCULAR HGB CONC 34.7 g/dl (32.0-36.5); MEAN CORPUSCULAR VOLUME 86.8 fl (80.0-96.0); MONO # 0.6 10^3/uL (0.0-0.8); MONO % 8.6 % (0.0-5.0); NEUTROPHILS # 3.9 10^3/uL (1.5-8.5); NEUTROPHILS % 56.9 % (36.0-66.0); PLATELET COUNT, AUTOMATED 180 10^3/uL (150-450); RED BLOOD COUNT 4.41 10^6/uL (4.30-6.10); WHITE BLOOD COUNT 6.9 10^3/uL (4.0-10.0)
[2018-12-15 12:54] VITALS: BP 187/126
[2018-12-15 13:15] LABS: ALBUMIN 4.1 GM/DL (3.2-5.2); ALT/SGPT 44 U/L (12-78); BILIRUBIN,TOTAL 0.3 MG/DL (0.2-1.0); BLOOD UREA NITROGEN 9 MG/DL (7-18); CALCIUM LEVEL 8.9 MG/DL (8.5-10.1); CARBON DIOXIDE LEVEL 29 MEQ/L (21-32); CHLORIDE LEVEL 106 MEQ/L (98-107); CREATININE FOR GFR 0.99 MG/DL (0.70-1.30); GLOMERULAR FILTRATION RATE > 60.0 (>60); GLUCOSE, FASTING 195 MG/DL (70-100); POTASSIUM SERUM 3.8 MEQ/L (3.5-5.1); SODIUM LEVEL 140 MEQ/L (136-145); TOTAL PROTEIN 7.9 GM/DL (6.4-8.2)
[2018-12-15 14:03] LABS: CK-MB VALUE MASS < 1.0 NG/ML (<3.6); CPK CREATINE PHOSPHOKINASE 179 U/L (39-308); MB/CK RELATIVE INDEX 0.56 (< OR =4); TROPONIN I < 0.02 NG/ML (< 0.10)
[2018-12-15] MEDS ORDERED: LORazepam 2 MG/ML VIAL (J2060) IV STA (14:46)
[2018-12-15 15:44] VITALS: BP 158/107
--- NOTE | 2018-12-17 07:59 | ECGEPIP ---
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
== END 2018-12-15 16:03 | disposition home or self-care (01) ==
LOC: M ED 11:26
DX: I10 Essential (primary) hypertension (principal); G43.909 Migraine, unspecified, not intractable, without status migrainosus; I25.10 Atherosclerotic heart disease of native coronary artery without angina pectoris; E11.9 Type 2 diabetes mellitus without complications; Z79.899 Other long term (current) drug therapy
CPT/HCPCS: 80053; 82550; 82553; 85025; 93005; 96361; 96374; 96375; 99284; J1200; J1885; J2060; J2765

== ENCOUNTER → 2018-12-15 | Outpatient (CLI) | payer OTHER ==
[~2018-12-15] MED LIST changes: +ACET-842 PO; +AMLO10TA5 PO; +ATEN100T PO; +ATOR40TA75 PO; +DIVA500T9 PO; +HYDR10TAB PO; +LABE200T32 PO; +MONT10TA2 PO; +TREL1AER PO
--- NOTE | 2018-12-15 14:49 | REP ---
MRI brain without with IV contrast: History: Chronic migraine. Comparison head CT study April 21, 2018. Technique: Axial and sagittal imaging planes are utilized for T1 and T2-weighted scans. Sequences include spin-echo, fast spin echo, FLAIR, and diffusion weighted sequences. Gadolinium enhancement dose is 17 mL of intravenous ProHance. MRI findings: No bony calvarial lesion is seen. Craniocervical junction is unremarkable. No intraorbital abnormality is appreciated. There is no MR evidence of significant paranasal sinus disease. Deep facial soft tissues are unremarkable and symmetric. Lateral, third, and fourth ventricles are normal in size and position. No extra-axial fluid collection is seen. Diffusion weighted scans demonstrate a punctate area of restricted diffusion in the periventricular white matter of the right posterior frontal lobe consistent with acute ischemia. There is a subtle T2 hyperintensity here on FLAIR and turbo spin echo T2-weighted scans. Grant-white differentiation pattern is otherwise intact. No other area of restricted diffusion is appreciated. No mass or midline shift is seen. Impression: A tiny focus of restricted diffusion is seen in the periventricular white matter of the right posterior frontal lobe consistent with acute ischemia. Question migraine associated versus other etiology of acute ischemia. Otherwise normal. Electronically Signed by Madi De Anda MD 12/15/2018 04:00 P
== END ==
LOC: M PLARAD 07:33
PROVIDERS: ATTEND Psychiatry & Neurology Neurology
DX: G43.909 Migraine, unspecified, not intractable, without status migrainosus (principal)

== ENCOUNTER 2018-12-26 10:46 | Emergency (ER) | payer OTHER ==
[~2018-12-26] VITALS: Ht 182.9 cm; Wt 85.1 kg
[~2018-12-26 10:46] MED LIST changes: +ACET-842 PO; +AMLO10TA5 PO; +ATEN100T PO; +ATOR40TA75 PO; +DIVA500T9 PO; +HYDR10TAB PO; +LABE200T32 PO; +MONT10TA2 PO; -OMEP40CA2 PO; +OMEP40CA97 PO; +TREL1AER PO
[2018-12-26 11:22] LABS: BASO % 0.6 % (0.0-1.0); EOS # 0.1 10^3/uL (0.0-0.5); EOS % 1.1 % (0.0-3.0); HEMATOCRIT 42.2 % (42.0-52.0); HEMOGLOBIN 14.7 g/dl (13.5-17.5); LYMPH # 2.7 10^3/uL (1.5-5.0); LYMPH % 37.2 % (24.0-44.0); MEAN CORPUSCULAR HEMOGLOBIN 30.6 pg (27.0-33.0); MEAN CORPUSCULAR HGB CONC 34.8 g/dl (32.0-36.5); MEAN CORPUSCULAR VOLUME 87.9 fl (80.0-96.0); MONO # 0.7 10^3/uL (0.0-0.8); NEUTROPHILS # 3.8 10^3/uL (1.5-8.5); NEUTROPHILS % 51.8 % (36.0-66.0); PLATELET COUNT, AUTOMATED 210 10^3/uL (150-450); WHITE BLOOD COUNT 7.2 10^3/uL (4.0-10.0)
[2018-12-26 11:51] LABS: BLOOD UREA NITROGEN 12 MG/DL (7-18); CALCIUM LEVEL 9.8 MG/DL (8.5-10.1); CARBON DIOXIDE LEVEL 30 MEQ/L (21-32); CHLORIDE LEVEL 98 MEQ/L (98-107); CK-MB VALUE MASS < 1.0 NG/ML (<3.6); CPK CREATINE PHOSPHOKINASE 152 U/L (39-308); GLOMERULAR FILTRATION RATE > 60.0 (>60); GLUCOSE, FASTING 308 MG/DL (70-100); MB/CK RELATIVE INDEX 0.66 (< OR =4); POTASSIUM SERUM 4.5 MEQ/L (3.5-5.1); SODIUM LEVEL 134 MEQ/L (136-145); TROPONIN I < 0.02 NG/ML (< 0.10)
[2018-12-26 12:03] LABS: INR 0.96; PROTHROMBIN TIME 12.5 SECONDS (11.8-14.0)
[2018-12-26 12:04] LABS: PARTIAL THROMBOPLASTIN TIME 27.7 SECONDS (25.0-38.4)
--- NOTE | 2018-12-26 13:04 | REP ---
Single view chest: 12/26/2018. Indication: Chest pain. Comparison: 10/12/2018. Findings: The lungs are clear. There is no pneumothorax or significant pleural fluid. Cardiac silhouette is within normal limits. Impression: No acute cardiopulmonary process. Electronically Signed by Cristofer Mcdaniels DO 12/26/2018 12:55 P
[2018-12-26] MEDS ORDERED: ISOVUE-370 76% 100ML VIAL (Q9967) As Ordered ONE (13:22)
--- NOTE | 2018-12-26 14:54 | REP ---
CT PULMONARY ANGIOGRAM: WITH IV CONTRAST. HISTORY: Chest pain, pleuritic. Rule out pulmonary embolus. COMPARISON STUDIES: Comparison CT study is from October 12, 2018. CONTRAST DOSE: 75 mL of Isovue [address] TECHNIQUE: Helical scanning is acquired and overlapping 1.5 mm and contiguous 3 mm axial images are reformatted. In addition, maximum intensity projection and multiplanar re-formation images are generated in sagittal and coronal imaging projections. CT PULMONARY ANGIOGRAPHIC FINDINGS: There is good opacification of the pulmonary arterial tree. No vessel cutoff or filling defect is seen. There is no CT evidence of pulmonary embolism. No evidence of aortic dissection or aneurysm. No hilar or mediastinal mass is observed. Small subcarinal and hilar lymph nodes are seen, no definite adenopathy. No pleural or pericardial effusion is observed. There is diffuse fatty infiltration of the liver. No adrenal lesion is seen. The visualized upper abdominal structures are otherwise unremarkable. The lung mariano are essentially clear with emphysematous changes in the upper lobes, right greater than left. No pulmonary nodule or mass lesion is observed. Bone window settings show no bony destructive lesion. IMPRESSION: No CT evidence of pulmonary embolus. Diffuse fatty infiltration of the liver. Otherwise negative. Electronically Signed by Madi De Anda MD 12/26/2018 06:47 P
[2018-12-26] MEDS ORDERED: KETOROLAC 30 MG/ML VIAL (J1885) IV ONE (15:30)
[2018-12-26] MEDS ORDERED: METOCLOPRAMIDE INJ 10MG/2ML VIAL (J2765) IV ONE (15:30)
[2018-12-26 15:35] LABS: CK-MB VALUE MASS < 1.0 NG/ML (<3.6); CPK CREATINE PHOSPHOKINASE 140 U/L (39-308); MB/CK RELATIVE INDEX 0.71 (< OR =4); TROPONIN I < 0.02 NG/ML (< 0.10)
[2018-12-26 15:45] VITALS: BP 121/79
--- NOTE | 2018-12-26 21:29 | ECGEPIP ---
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
--- NOTE | 2018-12-26 21:32 | ECGEPIP ---
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
== END 2018-12-26 16:00 | disposition home or self-care (01) ==
LOC: M ED 10:46
DX: G43.909 Migraine, unspecified, not intractable, without status migrainosus (principal); R07.89 Other chest pain; K76.0 Fatty (change of) liver, not elsewhere classified; E11.9 Type 2 diabetes mellitus without complications; I10 Essential (primary) hypertension; J45.909 Unspecified asthma, uncomplicated; J44.9 Chronic obstructive pulmonary disease, unspecified; F17.200 Nicotine dependence, unspecified, uncomplicated; Z79.82 Long term (current) use of aspirin; Z79.4 Long term (current) use of insulin; Z79.899 Other long term (current) drug therapy
CPT/HCPCS: 71045; 71275; 80048; 82550; 82553; 85025; 85610; 85730; 93005; 93041; 94760; 99285; Q9967

== ENCOUNTER → 2019-01-05 | Outpatient (CLI) | payer OTHER ==
[2019-01-05 13:46] LABS: BASO % 0.4 % (0.0-1.0); EOS # 0.1 10^3/uL (0.0-0.5); EOS % 1.3 % (0.0-3.0); HEMOGLOBIN 14.4 g/dl (13.5-17.5); LYMPH # 2.8 10^3/uL (1.5-5.0); LYMPH % 40.2 % (24.0-44.0); MEAN CORPUSCULAR HEMOGLOBIN 30.5 pg (27.0-33.0); MEAN CORPUSCULAR HGB CONC 34.3 g/dl (32.0-36.5); MONO # 0.7 10^3/uL (0.0-0.8); MONO % 9.3 % (0.0-5.0); NEUTROPHILS # 3.4 10^3/uL (1.5-8.5); NEUTROPHILS % 48.4 % (36.0-66.0); PLATELET COUNT, AUTOMATED 225 10^3/uL (150-450); RED BLOOD COUNT 4.72 10^6/uL (4.30-6.10); WHITE BLOOD COUNT 7.1 10^3/uL (4.0-10.0)
[2019-01-05 14:14] LABS: ALBUMIN 4.2 GM/DL (3.2-5.2); ALT/SGPT 53 U/L (12-78); BILIRUBIN,TOTAL 0.3 MG/DL (0.2-1.0); BLOOD UREA NITROGEN 10 MG/DL (7-18); CALCIUM LEVEL 9.5 MG/DL (8.5-10.1); CARBON DIOXIDE LEVEL 27 MEQ/L (21-32); CHLORIDE LEVEL 104 MEQ/L (98-107); CREATININE FOR GFR 1.14 MG/DL (0.70-1.30); GLOMERULAR FILTRATION RATE > 60.0 (>60); GLUCOSE, FASTING 212 MG/DL (70-100); RHEUMATOID FACTOR QUANT < 10.0 IU/ML (<15.0); SODIUM LEVEL 139 MEQ/L (136-145); TOTAL PROTEIN 8.3 GM/DL (6.4-8.2); VALPROIC ACID (DEPAKOTE) 3.4 UG/ML (50.0-100.0)
[2019-01-05 14:21] LABS: TOTAL 25(OH) VITAMIN D 11.4 NG/ML (30.0-100.0); VITAMIN B12 LEVEL 489 PG/ML
[2019-01-05 14:23] LABS: FOLATE 17.2 NG/ML
[2019-01-05 15:05] LABS: ERYTHROCYTE SEDIMENTATION RATE 41 mm/hr (0-15)
[2019-01-06 15:57] LABS: ANTINUCLEAR ANTIBODIES DIRECT Negative (Negative)
== END ==
LOC: M LAB 13:17
PROVIDERS: ATTEND Psychiatry & Neurology Neurology
DX: R51 Headache (principal)

== ENCOUNTER → 2019-01-19 | Outpatient (CLI) | payer OTHER ==
--- NOTE | 2019-01-19 15:32 | REP ---
MRI lumbar spine: 01/19/2019. Indication: Low back pain. Comparison: None. Technique: Multiplanar short and long TR sequences of the lumbar spine were performed without IV Gadolinium. Findings: Very minimal retrolisthesis of L5 on S1 is noted. Disc dessication is present at L4/L5 and L5/S1. No worrisome marrow signal is present. The visualized cord is normal. The paraspinal soft tissues are unremarkable. L1/L2, L2/L3 and L3/L4: Unremarkable. L4/L5: Mild diffuse disc bulge and bilateral facet arthropathy are present with mild effacement of the ventral thecal sac. Mild to moderate bilateral neural foraminal narrowing is present. L5/S1: There is a tiny posterior central disc protrusion superimposed on a mild diffuse disc bulge with bilateral facet arthropathy. There is mild spinal canal narrowing. Moderate bilateral neural foraminal narrowing is present. Impression: Degenerative sequelae of the lower lumbar spine as described without nerve root impingement detected. Electronically Signed by Cristofer Mcdaniels DO 01/19/2019 03:23 P
== END ==
LOC: M PLARAD 09:53
PROVIDERS: ATTEND Psychiatry & Neurology Neurology
DX: M54.5 Low back pain (principal); M43.06 Spondylolysis, lumbar region; I63.031 Cerebral infarction due to thrombosis of right carotid artery

== ENCOUNTER → 2019-01-22 | Outpatient (CLI) | payer OTHER ==
--- NOTE | 2019-01-23 06:41 | REP ---
Clinical: Thrombosis right carotid artery. Comparison: 03/22/2016 Technique: Grant scale and color Doppler evaluation using linear high frequency transducer Findings: Two-dimensional grant scale and color images demonstrate mild atheromatous plaquing at the carotid bulbs with normal laminar flow and no appreciable narrowing. Color Doppler interrogation demonstrates normal arterial wave patterns and velocities with no significant spectral broadening. Normal flow direction is appreciated in the bilateral vertebral arteries. RIGHT (cm/s) LEFT (cm/s) ICA peak systolic velocity 80.7 111.9 ICA diastolic velocity 39.4 61.4 ECA peak systolic velocity 75.9 115.3 CCA peak systolic velocity 108.5 106.6 ICA/CCA ratio 0.7 1.0 Impression: No hemodynamically significant areas of narrowing or stenosis appreciated. Based on set standards narrowing falls within the less than 50% range. Electronically Signed by Beto Reynolds MD 01/23/2019 06:33 A
== END ==
LOC: M RAD 12:11
PROVIDERS: ATTEND Psychiatry & Neurology Neurology
DX: M43.06 Spondylolysis, lumbar region (principal); M54.5 Low back pain; I65.21 Occlusion and stenosis of right carotid artery

== ENCOUNTER 2019-02-28 06:12 | Emergency (ER) | payer OTHER ==
[~2019-02-28] VITALS: Ht 182.9 cm; Wt 130.9 kg
[2019-02-28] MEDS ORDERED: ACETAMINOPHEN 500 MG TAB PO ONE (08:15)
[2019-02-28] MEDS ORDERED: LIDOCAINE 2% MDV 20 ML VIAL SC ONE (08:15)
[2019-02-28] MEDS ORDERED: KETOROLAC 30 MG/ML VIAL (J1885) IM ONE (08:15)
[2019-02-28 09:30] VITALS: BP 162/104
[2019-02-28] MEDS ORDERED: NORC1TAB8 PO (09:40)
== END 2019-02-28 09:49 | disposition home or self-care (01) ==
LOC: M ED 06:12
DX: K08.89 Other specified disorders of teeth and supporting structures (principal); E11.9 Type 2 diabetes mellitus without complications; I10 Essential (primary) hypertension; Z79.899 Other long term (current) drug therapy; Z79.4 Long term (current) use of insulin; F17.210 Nicotine dependence, cigarettes, uncomplicated
CPT/HCPCS: 96372; 99283; J1885

== ENCOUNTER → 2019-03-05 | Outpatient (CLI) | payer OTHER ==
[~2019-03-05] MED LIST changes: +NORC1TAB8 PO
== END ==
LOC: M PLALAB 12:06
PROVIDERS: ATTEND Physician Assistant Medical
DX: E11.40 Type 2 diabetes mellitus with diabetic neuropathy, unspecified (principal)

== ENCOUNTER → 2019-04-17 | Outpatient (CLI) | payer OTHER ==
--- NOTE | 2019-04-19 02:02 | ECWPNPC ---
PATIENT NAME: PINKY CANNON : 1975 GENDER: MALE VISIT DATE: 04/17/2019 DISCHARGE DATE: 04/17/19 1158 VISIT LOCKED DATE TIME: PHYSICIAN: YUDITH CASTANEDA RESOURCE: YUDITH CASTANEDA REASON FOR APPOINTMENT 1. BACK PAIN HISTORY OF PRESENT ILLNESS NEW PATIENT CONSULT: WHEN DID YOUR PAIN FIRST START? . BRIEFLY DESCRIBE HOW YOUR PAIN STARTED? . HOW DOES YOUR PAIN CHANGE WITH TIME? . DOES YOUR PAIN AWAKEN YOU FROM SLEEP? . HOW MANY HOURS OF SLEEP DO YOU NORMALLY GET? . ANY DIAGNOSTIC TESTING? . FACILITY WHERE TESTS WERE DONE? ____. PAIN TREATMENT TREATMENT YES CANCER HAVE YOU EVER HAD ANY TYPE OF CANCER?NO NO. 43-YEAR-OLD MALE IN FOR INITIAL PAIN CONSULT. HE STATES HE HAD BACK PAIN FOR THE PAST 10 YEARS. WHEN ASKED HE DENIES USE MEDICATIONS IN THE PAST AND IS BEEN HELPFUL IN REDUCING HIS PAIN SYMPTOMS. HE IS CURRENTLY ON GABAPENTIN 100 MG 3 TIMES A DAY. HE DOES ADMIT TO A HISTORY OF TRAUMA WORKING A [employer] HE FELL A SCAFFOLDING THAT WAS 12 FEET IN THE AIR. HE RATES HIS PAIN CURRENTLY AT A 10 OUT OF 10 AND DESCRIBES IT ACHING, BURNING, AND SHARP. PAIN SCREENING: PATIENT HAS A COMPLAINT OF ACUTE OR CHRONIC PAIN :YES FALL RISK SCREENING: SCREENING : NO FALLS IN THE PAST YEAR. VORA INVENTORY: QUESTIONNAIRE ASSESSEDTBD SCORE VALUE CALCULATED TBD CURRENT MEDICATIONS TAKING DEPAKOTE ER 500 MG TABLET EXTENDED RELEASE 24 HOUR 2 TABLETS ORALLY BEFORE BEDTIME TAKING AMLODIPINE BESYLATE 10 MG TABLET 1 TABLET ORALLY ONCE A DAY TAKING SPIRONOLACTONE 25 MG TABLET 1 TABLET ORALLY TWICE A DAY TAKING ATENOLOL 100 MG TABLET 1 TABLET ORALLY ONCE A DAY TAKING HYDRALAZINE HCL 10 MG TABLET 1 TABLET WITH FOOD ORALLY THREE TIMES DAILY TAKING GLUCOSE 4 GM TABLET CHEWABLE TAKE ONE TABLET ORALLY NEEDED FOR LOW BLOOD SUGARS TAKING METFORMIN HCL 500 MG TABLET 1 TABLET WITH MEALS: CLARIFICATION DOESN'T WANT ER HAS CONSTIPATION ORALLY TWICE A DAY TAKING ATORVASTATIN CALCIUM 40 MG TABLET 1 TABLET ORALLY ONCE A DAY AT BEDTIME TAKING VENTOLIN HFA 108 (90 BASE) MCG/ACT AEROSOL SOLUTION 1 PUFFS NEEDED INHALATION FRANCE EVERY 6 HRS TAKING CELEXA 40 MG TABLET 1 TAB ORALLY ONCE A DAY TAKING TRAZODONE HCL 50 MG TABLET 1 TABLET AT BEDTIME NEEDED ORALLY ONCE A DAY TAKING CHLORTHALIDONE 25 MG TABLET 1 TABLET IN THE MORNING WITH FOOD ORALLY ONCE A DAY TAKING HYDROXYZINE HCL 25 MG TABLET 1 TABLET NEEDED FOR PRURITUS ORALLY EVERY 6 HRS TAKING ANUSOL-HC 2.5 % CREAM 1 APPLICATION TO AFFECTED AREA RECTAL TWICE A DAY TAKING PROCTOFOAM HC 1-1 % FOAM 1 APPLICATION NEEDED RECTAL FOUR TIMES A DAY TAKING TRELEGY ELLIPTA 100-62.5-25 MCG/INH AEROSOL POWDER BREATH ACTIVATED 1 PUFF INHALATION ONCE A DAY TAKING OMEPRAZOLE 40 DELAYED RELEASE CAPSULE 1 CAPSULE ORALLY DAILY TAKING IBUPROFEN 400 MG TABLET 1 TABLET WITH FOOD OR MILK NEEDED ORALLY THREE TIMES A DAY TAKING ONETOUCH VERIO W/DEVICE KIT DIRECTED _ QID TAKING CHLORTHALIDONE 25 TABLET 1 TABLET IN THE MORNING WITH FOOD ORALLY ONCE A DAY TAKING BASAGLAR KWIKPEN 100 UNIT/ML SOLUTION PEN-INJECTOR 60 UNITS SUBCUTANEOUS BEFORE BEDTIME TAKING RA ALCOHOL SWABS 70 % PAD USE 5 TIMES A DAY FOR INSULINS AND 4 TIMES A DAY FOR BLOOD GLUCOSE TESTING SUBCUTANEOUSLY 5 TIMES A DAY TAKING BD PEN NEEDLE MINI U/F 31G X 5 MM MISCELLANEOUS DIRECTED SUBCUTANEOUSLY 5 TIMES / DAY NEEDED TAKING APAP 500 MG CAPSULE 1 CAPSULE NEEDED ORALLY EVERY 6 HRS TAKING [employer] VERIO - STRIP DIRECTED DX E11.9 AC TID AND QHS, PRN WHEN NOT WELL FIVE TIMES DAILY AND NEEDED TAKING HUMALOG PEN 100 UNIT/ML SOLUTION PEN-INJECTOR MDD :33UNITS/DAY SLIDING SCALE/MEAL SUBCUTANEOUS BEFORE MEALS AND AT BEDTIME TAKING LANCETS 30G - MISCELLANEOUS DX E11.9 ONE TOUCH DELICA SUBCUTANEOUSLY FIVE TIMES DAILY AND NEEDED TAKING ASPIRIN 81 MG TABLET CHEWABLE 1 TABLET ORALLY ONCE A DAY TAKING IRBESARTAN 300 MG TABLET 1 TABLET ORALLY QPM NOT-TAKING GABAPENTIN 100 MG CAPSULE 1 CAPSULE ORALLY THREE TIMES DAILY UNKNOWN MAY HAVE - - AUTOTITRATION CPAP _ DAILY PAST MEDICAL HISTORY GERD HEMOPTYSIS, COPD-GOLD STANDARD MOD. STAGE II 69% FEV1, FEV1/FVC RATIO 0.66 STAGE II MODERATE COPD ON KERMIT 12/2015 [facility] CONSULTED, NO FURTHER EPISODES +MH T2DM IREQUIRING RAPID ONSET (02/2017 [facility] RANGE)C WILLIAMS 65 PANCREATIC ANTIBIOTIC NEG./ IA2 NEG./ ZT8 ANTIBODY ALL NEG. ADMITTED IN DKA VS. [facility]03/2017, C BETA HYDROXY BUTYLATE>46, PH 7.30, C-PEPTIDE 2.1 C FBS 330 HTNIVE URGENCY 07/2017 ED, [facility]-ECHO 07/14/2017 NL LV SYSTOLIC DYSFXN, GRADE 1 LV DIASTOLIC DYSFXN, MILD ELEVATED PAP'S OTHERWISE NL ED 07/20/2018 NEW LBBB ON EKG FOLLOWS Marycruz MIRANDA SYNCOPE C 02/26 HOLTER SYMPS. NOT CORRELATING C ANY ABNL RHYTHM, 30DAY MULTIEVENT MONITOR 05/06 TO 06/05/2016 UNDERLYING SINUS C OCCASIONAL PAC'S INTERMITTENTLY FREQ. PVC'S 74-167BPM, 74-176 BPM FREQ. PVCS 47SYMP. TRANSMISSIONS C SINUS ONLY&OCCASIONALLY ISOLATED PVC'S, & SINUS TACHYC. TO 142 10 ASYMP. AUTOTRIGGERED EVENTS C S. TACH. 120-165; NO SIGNIFICANT ANITA OR TACHY ARRHYTHMIAS 10/2018 ACUTE ISCHEMIA IN RT. POST. FRONTAL LOBE MIGRAINE VS. ACUTE ISCHEMIA HTN-H/O HYPERTENSIVE CRISIS SEEN IN ED 09/2014 IN [facility] [place] C H/O COCAINE USE CHRONIC MIGRAINES ALLERGIES N.K.D.A. SURGICAL HISTORY EGD C DR. BELL SMALL HIATAL HERNIA O/W NEG/NL 03/2016 FAMILY HISTORY FATHER: MOTHER: 3 BROTHER(S) , 2 SISTER(S) . MOTHER OF [place] UNKNOWN 40\\'S, FATHER OF EMPHYSEMA\\/ACUTE RESP. ILLNESS 50\\'S. SOCIAL HISTORY GENERAL: TOBACCO USE ARE YOU A:CURRENT SMOKER ARE YOU INTERESTED IN QUITTING?THINKING ABOUT QUITTING HOW MANY CIGARETTES A DAY DO YOU SMOKE?5 OR LESS HOW SOON AFTER YOU WAKE UP DO YOU SMOKE YOUR FIRST CIGARETTE?WITHIN 5 MIN HOW OFTEN DO YOU SMOKE CIGARETTES?EVERY DAY OTHERS AT HOME: LIVE BY SELF NO PETS. HOUSING: RENTS APARTMENT. EDUCATION LEVEL OF EDUCATION:NOT FINISHED HIGH SCHOOL DIET: NO CONCENTRATED SWEETS.. LANGUAGE LANGUAGES SPOKEN:FINNISH DOMESTIC VIOLENCE DO YOU FEEL SAFE IN YOUR ENVIRONMENT?YES RECREATIONAL DRUG USE DRUG USE?YES COCAINE, MARIJUANA PT STATES HE HAS "TRIED IT IN THE PAST" NOT CURRENTLY USING EXERCISE: WALKS "WHEN I CAN". LEARNING BARRIERS / SPECIAL NEEDS LEARNING PREFERENCES?YES ONE ON ONE SPECIAL DEVICES?YES BI PAP LUNG CANCER SCREENING SMOKING STATUS:CURRENT SMOKER IS THE PATIENT BETWEEN THE AGE OF 56 AND 78?NO PAIN CLINIC PFS, CLERGY, PUBLIC HEALTH REFERRALS PFS REFERRAL NEEDED?NO CLERGY REFERRAL NEEDED?NO PUBLIC HEALTH REFERRAL NEEDED?NO WAS THE PROVIDER NOTIFIED OF ANY PERTINENT INFO?NO HAS THE PATIENT BEEN EDUCATED REGARDING HIS/HER PLAN OF CARE?YES HAS THE PATIENT BEEN EDUCATED REGARDING PAIN, THE RISK FOR PAIN, THE IMPORTANCE OF EFFECTIVE PAIN MANAGEMENT, AND THE PAIN ASSESSMENT PROCESS?YES LATEX QUESTIONNAIRE LATEX ALLERGY : HAVE YOU EVER DEVELOPED ANY TYPE OF REACTION AFTER HANDLING LATEX PRODUCTS SUCH RUBBER GLOVES, CONDOMS, DIAPHRAGMS, BALLOONS, SOCKS, OR UNDERWEAR?NO CAFFEINE CAFFEINE USE?YES PT DRINKS A CUP OR TWO A WEEK ADVANCE DIRECTIVE ADVANCE DIRECTIVE DISCUSSED WITH PATIENT:YES WE DISCUSSED AND PT STATES HE WOULD HAVE HIS SISTER I WILL GIVE PRINTED MATERIAL TO TAKE HOMD JUDAISM JUDAISM PT STATES NO PREFERENCE MARITAL STATUS: SINGLE. 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 HOSPITALIZATION/MAJOR DIAGNOSTIC PROCEDURE DKA VS. HHS SEE ABOVE FOR DETAILS 03/2017 HTN 07/11-07/13/2017 REVIEW OF SYSTEMS REVIEWED BY: PROVIDER: JUANA SPANN . CONSTITUTIONAL: ANY CHANGE IN YOUR MEDICAL CONDITION? NO . CHILLS NO . FEVER NO . INFECTION: DO YOU HAVE NEW INFECTIONS? NO . DO YOU HAVE HISTORY OF MRSA? NO . MUSCULOSKELETAL: ANY NEW PATTERNS OF PAIN OR NUMBNESS? YES . SYTEMIC LUPUS NO . GASTROENTEROLOGY: ANY NEW CHANGE IN BOWEL CONTROL? NO . BARRETTS ESOPHAGUS NO . CIRRHOSIS NO . HEPATITIS NO . LIVER FAILURE NO . ACID REFLUX NO . UNEXPLAINED WEIGHT LOSS NO . GENITOURINARY: ANY NEW CHANGE IN BLADDER CONTROL? NO . IS THERE A CHANCE YOU COULD BE ? NO . HEMATOLOGY/LYMPH: DO YOU TAKE ANY BLOOD THINNERS? (FOR EXAMPLE- COUMADIN, PLAVIX, AGGRENOX, PLATEL, PRADAXA, OR XARELTO) NO . WHEN WAS YOUR LAST DOSE? DATE: TIME: . LOW PLATELET COUNT NO . SICKLE CELL DISEASE NO . VON WILLIEBRANDS NO . FACTOR V LEIDEN NO . THALLASEMIA NO . ANEMIA NO . EASY BRUISING NO . NEUROLOGY: HAVE YOU FALLEN IN THE PAST 12 MONTHS? NO . ANY NEW EXTREMITY NUMBNESS OR WEAKNESS? NO . HEAD INJURY NO . DEMENTIA NO . CEREBRAL PALSY NO . MULTIPLE SCLEROSIS NO . DIZZINESS NO . HEADACHE NO . STROKES NO . VERTIGO NO . CARDIOLOGY: DO YOU HAVE A PACEMAKER OR DEFIBRILLATOR? NO . ANGINA NO . HEART ATTACK NO . HEART SURGERY NO . CONGESTIVE HEART FAILURE/FLUID OVERLOAD NO . CHEST PAIN NO . HIGH BLOOD PRESSURE YES . IRREGULAR HEART BEAT NO . RESPIRATORY: HAVE YOU BEEN SICK IN THE PAST WEEK? NO . FEVER NO . FLU LIKE SYMPTOMS? NO . CPAP NO . BYPAP NO . ASTHMA NO . EMPHYSEMA NO . CHRONIC LUNG DISEASES NO . SHORTNESS OF BREATH ON EXERTION NO . DO YOU USE ANY TYPE OF TOBACCO (SMOKE, SMOKELESS, CHEW)? NO . COUGH NO . SNORING NO . INTEGUMENTARY: DO YOU HAVE ANY RASHES OR OPEN SORES? NO . ALLERGIC/IMMUNO: ARE YOU ALLERGIC TO IV DYE? NO . ANY NEW ALLERGIES? NO . PSYCHIATRIC: DO YOU HAVE THOUGHTS OF HURTING YOURSELF OR SOMEONE ELSE? NO . ARE YOU ABUSED, NEGLECTED, OR IN AN UNSAFE ENVIRONMENT? NO . ENDOCRINOLOGY: ARE YOU DIABETIC? YES . THYROID DISORDER NO . OTHER: DO YOU NEED ANY PRESCRIPTIONS? NO . IF YES, PLEASE LIST: ____ . ANY NEW PROBLEMS WITH YOUR MEDICATIONS? NO . WHEN DID YOU LAST EAT? ____ . WHEN DID YOU LAST DRINK? ____ . WHAT DID YOU LAST DRINK? ____ . NAME OF PERSON DRIVING YOU HOME? ____ . DO YOU HAVE ANY OTHER QUESTIONS OR CONCERNS NO . EXAMINATION GENERAL EXAMINATION: GENERALNO ACUTE DISTRESS, WELL NOURISHED AND HYDRATED. PSYCHAPPROPRIATE MOOD AND AFFECT . LUNGS:CLEAR TO AUSCULTATION BILATERALLY, NO WHEEZES, RHONCHI, RALES. HEART:NO MURMURS, REGULAR RATE AND RHYTHM. BACK:POINT TENDER ALONG LUMBAR SPINE, SURROUNDING SKIN SHOWS NO ERYTHEMA, ECCHYMOSIS, INCREASED WARMTH, AND/OR SKIN ERUPTIONS NOTED. PATIENT DOES ENDORSE INCREASED PAIN WITH FACET LOADING.. MUSCULOSKELETAL:EQUAL STRENGTH OF LOWER EXTREMITIES BILATERALLY. ASSESSMENTS SPONDYLOSIS WITHOUT MYELOPATHY OR RADICULOPATHY, LUMBAR REGION - M47.816 (PRIMARY) TREATMENT SPONDYLOSIS WITHOUT MYELOPATHY OR RADICULOPATHY, LUMBAR REGION REFILL GABAPENTIN TABLET, 100 MG, 1 CAPSULE, ORALLY, THREE TIMES DAILY, 30 DAYS, 90 CAPSULE, REFILLS 3 NOTES: THERAPEUTIC LUMBAR FACET L4-L5 L5-S1. CLINICAL NOTES: 43-YEAR-OLD MALE IN FOR INITIAL PAIN CONSULT. GIVEN PRESENTING SYMPTOMS AND RESULTS OF PHYSICAL EXAMINATION RECOMMENDED THERAPEUTIC FACET BLOCK L4-L5 L5-S1 WITH POSTPROCEDURAL FOLLOW-UP. FURTHER RECOMMENDED INCREASING GABAPENTIN TO 300 MG 3 TIMES A DAY. PATIENT HAS EXPRESSED UNDERSTANDING OF AND WAS IN AGREEMENT WITH TREATMENT PLAN. GIVEN TIME TO ASK QUESTIONS AND EXPRESS CONCERNS. PROCEDURE CODES FA211 ESTABILISHED PATIENT [facility] CHARGE DISPOSITION & COMMUNICATION FOLLOW UP POSTPROCEDURE (REASON: THERAPEUTIC LUMBAR FACET L4-L5 L5-S1) ELECTRONICALLY SIGNED BY GILDA STUBBS ON 04/18/2019 AT 02:51 PM EST DISCLAIMER : THIS IS A VISIT SUMMARY EXTRACTED FROM THE [employer] CHART. IT IS NOT A COPY OF THE [employer] PROGRESS NOTE. TRUE
== END ==
LOC: M PAIN 10:15
PROVIDERS: ATTEND Family Medicine
DX: M47.816 Spondylosis without myelopathy or radiculopathy, lumbar region (principal); K21.9 Gastro-esophageal reflux disease without esophagitis; I10 Essential (primary) hypertension; G43.909 Migraine, unspecified, not intractable, without status migrainosus; F17.210 Nicotine dependence, cigarettes, uncomplicated; E11.9 Type 2 diabetes mellitus without complications; Z79.51 Long term (current) use of inhaled steroids; Z79.4 Long term (current) use of insulin; Z79.82 Long term (current) use of aspirin; Z79.899 Other long term (current) drug therapy

== ENCOUNTER → 2019-05-22 | Outpatient (CLI) | payer OTHER ==
[~2019-05-22] MED LIST changes: -IRBE300T10 PO; +IRBE300T7 PO; -MONT10TA2 PO; +MONT10TA4 PO
--- NOTE | 2019-05-22 13:55 | REPPI ---
REASON: Upper extremity radicular symptoms. COMPARISON: None. No history of trauma whatsoever. CERVICAL SPINE SERIES: FINDINGS: Seven views of the cervical spine show no acute fracture, dislocation or subluxation. The intervertebral disc spaces are symmetric and well maintained. The facet joints are well aligned bilaterally. The intervertebral foramina are patent bilaterally and the neural canal is not encroached upon. There is no destructive osseous lesion. Flexion and extension does not appear to be particularly limited radiographically. The anterior spinal soft tissues appear unremarkable. IMPRESSION: Unremarkable cervical spine series. The dens cannot be effectively evaluated secondary to the superimposition of osseous structures and/or dentition on all views. Electronically Signed by Tavo Abdalla DO 05/22/2019 02:45 P
== END ==
LOC: M PLAIMG 09:06
PROVIDERS: ATTEND Physician Assistant Medical
DX: G62.9 Polyneuropathy, unspecified (principal)

== ENCOUNTER 2019-07-31 19:33 | Emergency (ER) | payer OTHER ==
[~2019-07-31] VITALS: Ht 182.9 cm; Wt 85.0 kg
[2019-07-31] MEDS ORDERED: INVO100T PO (19:51)
[2019-07-31] MEDS ORDERED: vit d PO (19:51)
[2019-07-31] MEDS ORDERED: NS 1,000 ML IV SCH (19:59)
[2019-07-31] MEDS ORDERED: PANTOPRAZOLE 40MG VIAL (C9113 PER 1) IV ONE (20:00)
[2019-07-31] MEDS ORDERED: ISOVUE-370 76% 100ML VIAL As Ordered ONE (20:02)
[2019-07-31 20:11] LABS: BASO % 0.5 % (0.0-1.0); EOS # 0.1 10^3/uL (0.0-0.5); EOS % 1.6 % (0.0-3.0); HEMATOCRIT 45.1 % (42.0-52.0); HEMOGLOBIN 15.4 g/dl (13.5-17.5); LYMPH # 3.9 10^3/uL (1.5-5.0); LYMPH % 45.1 % (24.0-44.0); MEAN CORPUSCULAR HEMOGLOBIN 30.4 pg (27.0-33.0); MEAN CORPUSCULAR HGB CONC 34.1 g/dl (32.0-36.5); MEAN CORPUSCULAR VOLUME 89.1 fl (80.0-96.0); MONO # 0.9 10^3/uL (0.0-0.8); NEUTROPHILS # 3.7 10^3/uL (1.5-8.5); NEUTROPHILS % 42.5 % (36.0-66.0); PLATELET COUNT, AUTOMATED 220 10^3/uL (150-450); RED BLOOD COUNT 5.06 10^6/uL (4.30-6.10); WHITE BLOOD COUNT 8.6 10^3/uL (4.0-10.0)
[2019-07-31 20:25] LABS: INR 1.02; PROTHROMBIN TIME 13.1 SECONDS (11.8-14.0)
[2019-07-31 20:26] LABS: PARTIAL THROMBOPLASTIN TIME 28.6 SECONDS (25.0-38.4)
[2019-07-31 20:44] LABS: ALBUMIN 4.4 GM/DL (3.2-5.2); ALT/SGPT 49 U/L (12-78); BILIRUBIN,DIRECT < 0.1 MG/DL (0.0-0.2); BILIRUBIN,TOTAL 0.2 MG/DL (0.2-1.0); BLOOD UREA NITROGEN 11 MG/DL (7-18); CALCIUM LEVEL 9.5 MG/DL (8.5-10.1); CARBON DIOXIDE LEVEL 25 MEQ/L (21-32); CHLORIDE LEVEL 105 MEQ/L (98-107); CREATININE FOR GFR 1.18 MG/DL (0.70-1.30); GLOMERULAR FILTRATION RATE > 60.0 (>60); GLUCOSE, FASTING 198 MG/DL (70-100); LIPASE 102 U/L (73-393); POTASSIUM SERUM 4.2 MEQ/L (3.5-5.1); SODIUM LEVEL 138 MEQ/L (136-145); TOTAL PROTEIN 8.8 GM/DL (6.4-8.2)
--- NOTE | 2019-07-31 21:25 | REPVR ---
PROCEDURE INFORMATION: Exam: CT Abdomen And Pelvis With Contrast Exam date and time: 07/31/2019 8:55 PM Age: 44 years old Clinical indication: Abdominal pain; Additional info: Gen abd pain, rectal bleeding TECHNIQUE: Imaging protocol: Computed tomography of the abdomen and pelvis with intravenous contrast. Radiation optimization: All CT scans at this facility use at least one of these dose optimization techniques: automated exposure control; mA and/or kV adjustment per patient size (includes targeted exams where dose is matched to clinical indication); or iterative reconstruction. Contrast material: ISO 370; Contrast volume: 100 ml; Contrast route: IV; COMPARISON: CT ABD/PEL W/IV CONTRAST ONLY 07/20/2018 8:02 PM FINDINGS: Lungs: Mild bibasilar atelectatic changes. Mediastinum: There is a small hiatal hernia. Liver: There is severe hypodense fatty infiltration of the liver. Hepatomegaly. Gallbladder and bile ducts: No calcified stones. No ductal dilation. Pancreas: Unremarkable. No ductal dilation. Spleen: Unremarkable. No splenomegaly. Adrenals: No mass. Kidneys and ureters: Unremarkable as visualized. No hydronephrosis. Stomach and bowel: Wall thickening of the rectum , sigmoid colon, and distal descending colon, suggestive of proctocolitis. Incomplete distension can contribute to this finding. Colonic diverticula are identified, without acute inflammatory stranding of the adjacent mesentery. Evaluation of bowel is limited by the absence of oral contrast. No bowel obstruction. Appendix: No evidence of appendicitis. Intraperitoneal space: No free air. No significant fluid collection. Vasculature: There is atherosclerotic calcification of the abdominal aorta and iliac arteries. Mild mural thrombus involving the iliac arteries. This is most significant involving the right external iliac artery with mild luminal narrowing, which has progressed. Lymph nodes: No enlarged lymph nodes. Bladder: Unremarkable as visualized. Reproductive: Mild enlargement of the prostate. Bones/joints: A few small nonspecific sclerotic lesions are identified within the acetabula bilaterally. Mild retrolisthesis of L5 on S1. Mild levoscoliosis of the lumbar spine. A stable chondroid lesion is identified within the proximal femur measuring 1.9 x 2.0 cm. No aggressive periosteal reaction is identified. There is no adjacent soft tissue mass. One likely etiology is an enchondroma. Soft tissues: See "Bones/joints" finding. IMPRESSION: 1. Wall thickening of the rectum, sigmoid colon, and distal descending colon, suggestive of proctocolitis. Incomplete distension can contribute to this finding. 2. There is atherosclerotic calcification of the abdominal aorta and iliac arteries. Mild mural thrombus involving the iliac arteries. This is most significant involving the right external iliac artery with mild luminal narrowing, which has mildly progressed. 3. There is severe hypodense fatty infiltration of the liver. Hepatomegaly. 4. Diverticulosis. 5. Mild enlargement of the prostate. 6. A stable chondroid lesion is identified within the proximal femur measuring 1.9 x 2.0 cm. One likely etiology is an enchondroma. This can be further evaluated with MRI. 7. Additional findings described above. Electronically signed by: Bennie Schumacher On 07/31/2019 21:24:52 PM
[2019-07-31] MEDS ORDERED: metroNIDAZOLE (FLAGYL) 500 MG TAB PO ONE (22:00)
[2019-07-31] MEDS ORDERED: CIPROFLOXACIN 500MG TABLET PO ONE (22:00)
[2019-07-31] MEDS ORDERED: FLAG500T PO (22:01)
[2019-07-31] MEDS ORDERED: CIPR-249 PO (22:01)
[2019-07-31] MEDS ORDERED: IRBESARTAN 150 MG TAB PO ONE (22:15)
[2019-07-31] MEDS ORDERED: **hydrALAZINE** 10 MG TAB PO ONE (22:15)
[2019-07-31 22:33] VITALS: BP 167/100
[2019-07-31 22:59] VITALS: BP 135/84
[2019-08-01] MEDS ORDERED: IRBESARTAN 150 MG TAB PO SCH (09:00)
--- NOTE | 2019-08-01 12:18 | ED PDOC ---
Post-Departure Follow-Up asiya zabala faxed formal report of ct abd/p for fu Ron Bell MD August 01, 2019 12:18
== END 2019-07-31 23:11 | disposition home or self-care (01) ==
LOC: M ED 19:33
DX: K52.9 Noninfective gastroenteritis and colitis, unspecified (principal); M89.9 Disorder of bone, unspecified; E11.9 Type 2 diabetes mellitus without complications; J44.9 Chronic obstructive pulmonary disease, unspecified; K21.9 Gastro-esophageal reflux disease without esophagitis; Z79.899 Other long term (current) drug therapy; Z79.4 Long term (current) use of insulin; Z79.82 Long term (current) use of aspirin; F17.210 Nicotine dependence, cigarettes, uncomplicated
CPT/HCPCS: 74177; 80048; 80076; 83690; 85025; 85610; 85730; 86850; 86900; 86901; 93041; 96361; 96374; 99285; C9113; Q9967

== ENCOUNTER → 2019-08-27 | Outpatient (CLI) | payer OTHER ==
[~2019-08-27] MED LIST changes: +CIPR-249 PO; +FLAG500T PO; +INVO100T PO; +vit d PO
== END ==
LOC: M RAD 07:08
PROVIDERS: ATTEND Physician Assistant Medical
DX: D16.21 Benign neoplasm of long bones of right lower limb (principal); Z53.9 Procedure and treatment not carried out, unspecified reason

== ENCOUNTER → 2019-09-17 | Outpatient (CLI) | payer OTHER ==
--- NOTE | 2019-09-17 15:31 | REP ---
REASON: Peripheral artery disease. RIGHT SIDE ONLY: The ankle-brachial index is 1.1. PEAK SYSTOLIC VELOCITY PHASICITY MEDICAL FEE CLERK 101.8 cm/s Triphasic Profunda 97.8 cm/s Triphasic SFA proximal 100.2 cm/s Triphasic SFA mid 100.1 cm/s Triphasic SFA distal 69.0 cm/s Triphasic Popliteal 62.4 cm/s Triphasic LAURI proximal 69.0 cm/s Monophasic Tibioperoneal trunk 53.3 cm/s Triphasic UNION STEWARD proximal 59.9 cm/s Triphasic UNION STEWARD distal 59.5 cm/s Triphasic LAURI distal 48.9 cm/s Monophasic No significant stenosis was identified. Mild plaque was seen throughout. Electronically Signed by Tavo Abdalla DO 09/17/2019 03:45 P
== END ==
LOC: M RAD 12:35
PROVIDERS: ATTEND Physician Assistant Medical
DX: I73.9 Peripheral vascular disease, unspecified (principal)

== ENCOUNTER → 2019-12-26 | Outpatient (CLI) | payer OTHER ==
[~2019-12-26] MED LIST changes: -AMLO10TA5 PO; +AMLO1TAB25 PO
[2019-12-26 16:29] LABS: APPEARANCE, URINE CLEAR (CLEAR); BACTERIA, URINE AUTO NEGATIVE (NEGATIVE); BILIRUBIN, URINE AUTO NEGATIVE (NEGATIVE); BLOOD, URINE BLOOD NEGATIVE (NEGATIVE); COLOR, URINE YELLOW (YELLOW); GLUCOSE, URINE (UA) AUTO NEGATIVE (NEGATIVE); KETONE, URINE AUTO TRACE mg/dL (NEGATIVE); LEUKOCYTE ESTERASE, URINE AUTO NEGATIVE (NEGATIVE); NITRITE, URINE AUTO NEGATIVE (NEGATIVE); PROTEIN, URINE AUTO NEGATIVE (NEGATIVE); RBC, URINE AUTO 4 /HPF (0-3); SPECIFIC GRAVITY URINE AUTO 1.023 (1.002-1.035); SQUAMOUS EPITHELIAL CELL UR AU 0 /HPF (0-6); UROBILINOGEN, URINE AUTO 0.2 mg/dL (0.0-2.0); WBC, URINE AUTO 1 /HPF (0-3)
[2019-12-26 16:49] LABS: HEMOGLOBIN A1c 8.5 %
[2019-12-26 17:02] LABS: ALBUMIN 4.2 GM/DL (3.2-5.2); ALT/SGPT 34 U/L (12-78); BILIRUBIN,TOTAL 0.4 MG/DL (0.2-1.0); BLOOD UREA NITROGEN 9 MG/DL (7-18); CALCIUM LEVEL 9.2 MG/DL (8.5-10.1); CARBON DIOXIDE LEVEL 28 MEQ/L (21-32); CHLORIDE LEVEL 108 MEQ/L (98-107); CHOLESTEROL LEVEL 145 MG/DL (<200); CHOLESTEROL RISK RATIO 3.152 (<5); CREATININE FOR GFR 0.91 MG/DL (0.70-1.30); FREE T4 1.15 NG/DL (0.76-1.46); GLOMERULAR FILTRATION RATE > 60.0 (>60); GLUCOSE, FASTING 78 MG/DL (70-100); HDL CHOLESTEROL 46 MG/DL (>40); LDL CHOLESTEROL 76 MG/DL (<100); NON-HDL-C 99 MG/DL; POTASSIUM SERUM 3.5 MEQ/L (3.5-5.1); SODIUM LEVEL 141 MEQ/L (136-145); THYROID STIMULATING HORMONE 0.826 uIU/ML (0.358-3.740); TOTAL PROTEIN 7.9 GM/DL (6.4-8.2); TRIGLYCERIDES LEVEL 113 MG/DL (<150)
[2019-12-26 17:06] LABS: MALB URINE SIEMENS 27.3 MG/L; MAU/CREAT RATIO 10.1 MCG/MG (0.0-30.0)
[2020-01-02 16:08] LABS: C-PEPTIDE 1.4 ng/mL (1.1-4.4); ISLET CELL ANTIBODIES Negative (Neg:<1:1)
== END ==
LOC: M WUC 14:23
PROVIDERS: ATTEND Family Medicine
DX: I10 Essential (primary) hypertension (principal); E13.65 Other specified diabetes mellitus with hyperglycemia

== ENCOUNTER → 2019-12-26 | Outpatient (CLI) | payer OTHER ==
[2019-12-26 16:30] LABS: BASO % 0.4 % (0.0-1.0); EOS # 0.1 10^3/uL (0.0-0.5); EOS % 0.8 % (0.0-3.0); HEMATOCRIT 40.8 % (42.0-52.0); HEMOGLOBIN 13.7 g/dl (13.5-17.5); LYMPH # 2.7 10^3/uL (1.5-5.0); LYMPH % 35.3 % (24.0-44.0); MEAN CORPUSCULAR HEMOGLOBIN 29.8 pg (27.0-33.0); MEAN CORPUSCULAR HGB CONC 33.6 g/dl (32.0-36.5); MEAN CORPUSCULAR VOLUME 88.9 fl (80.0-96.0); MONO # 0.7 10^3/uL (0.0-0.8); MONO % 8.8 % (0.0-5.0); NEUTROPHILS # 4.1 10^3/uL (1.5-8.5); NEUTROPHILS % 54.3 % (36.0-66.0); PLATELET COUNT, AUTOMATED 202 10^3/uL (150-450); RED BLOOD COUNT 4.59 10^6/uL (4.30-6.10); WHITE BLOOD COUNT 7.6 10^3/uL (4.0-10.0)
[2019-12-26 17:02] LABS: ALBUMIN 4.3 GM/DL (3.2-5.2); ALT/SGPT 36 U/L (12-78); BILIRUBIN,TOTAL 0.4 MG/DL (0.2-1.0); BLOOD UREA NITROGEN 10 MG/DL (7-18); CALCIUM LEVEL 9.2 MG/DL (8.5-10.1); CARBON DIOXIDE LEVEL 27 MEQ/L (21-32); CHLORIDE LEVEL 108 MEQ/L (98-107); GLOMERULAR FILTRATION RATE > 60.0 (>60); GLUCOSE, FASTING 83 MG/DL (70-100); POTASSIUM SERUM 3.5 MEQ/L (3.5-5.1); SODIUM LEVEL 141 MEQ/L (136-145)
== END ==
LOC: M WUC 14:27
PROVIDERS: ATTEND Physician Assistant Medical
DX: E10.65 Type 1 diabetes mellitus with hyperglycemia (principal); I10 Essential (primary) hypertension

== ENCOUNTER → 2020-02-28 | Outpatient (CLI) | payer OTHER ==
[~2020-02-28] MED LIST changes: -MONT10TA4 PO; +MONT5TAB2 PO
--- NOTE | 2020-02-28 14:07 | REPPI ---
INDICATION: ARTHRALGIA OF RIGHT SHOULDER. COMPARISON: None. TECHNIQUE: Three views. FINDINGS: Three views of the right shoulder demonstrate normal alignment of the glenohumeral and acromioclavicular joints. Periarticular soft tissues are unremarkable. No abnormality is noted in the visualized right hemithorax. Joint spaces are preserved. No erosive changes seen IMPRESSION: Negative right shoulder radiographs. <Electronically signed by Geovanny De Anda > 02/28/20 [id number]
--- NOTE | 2020-02-28 14:09 | REPPI ---
INDICATION: DDD. COMPARISON: Comparison imaging is MRI study lumbar spine January 19, 2019.. TECHNIQUE: Five views. FINDINGS: Lumbar vertebral body heights are preserved. There is mild degenerative disc narrowing at L4-5 unchanged from the MRI study. Other disc spaces are maintained. There is osteoarthritic facet hypertrophy bilaterally at L5-S1 and minimally at L4-5. Sacrum and SI joints appear intact. There is no evidence of spondylolysis or spondylolisthesis. Psoas margins are symmetric. Visualized bowel gas pattern is normal. There is some vascular calcification. IMPRESSION: Mild degenerative spondylosis changes. No acute bony abnormality. <Electronically signed by Geovanny De Anda > 02/28/20 [id number]
== END ==
LOC: M PLAIMG 11:09
PROVIDERS: ATTEND Physician Assistant Medical
DX: M25.511 Pain in right shoulder (principal); M51.36 Other intervertebral disc degeneration, lumbar region

== ENCOUNTER 2020-04-10 17:16 | Emergency (ER) | payer OTHER ==
[~2020-04-10] VITALS: Ht 182.9 cm; Wt 80.8 kg
[~2020-04-10 17:16] MED LIST changes: -AMIT25TA PO; +AMIT25TA17 PO
--- OUTSIDE RECORDS SUMMARY | 2020-04-10 17:24 | CCD ---
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 Active 035323192 Problem Depression, unspecified depression type F32.9 Active 01142140 Problem Bilateral headaches R51 Active 321050325 Problem Muscle tension headache G44.209 Active 18321516 6 Problem Intractable migraine with aura with status migrainosus G43.111 Active 502849922 Problem Intractable episodic cluster headache G44.011 Ac tive 918940381 Problem Risky sexual behavior Z72.51 Active 234304930 Problem Spondylosis without myelopathy or radiculopathy, lumbar region M47.816 Active 33511296 Problem 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 Active 889386176 Problem DDD (degenerative disc disease), lumbar M51.36 Active 19811735 Problem Hypogonadism in male E29.1 Active 85454444 Problem Abnormal reaction to tuberculin test R76.11 Act aisha 33486535 Problem Syncope, unspecified syncope type R55 Active 634010408 Problem Sleep apnea in adult G47.30 Active 63186660 Problem Moderate persistent asthma, unspecified whether complicate d J45.40 Active 372414213 Problem ANALILIA (obstructive sleep apnea) G47.33 Active 78 046155 Problem Tobacco use Z72.0 Active 461431890 Problem Sleep disorder, unspecified G47.9 Active 3989 8005 Problem LBBB (left bundle branch block) I44.7 Active 53754651 Problem Gastroesophageal reflux disease, esophagitis pre sence not specified K21.9 Active 128441547 Problem Migraine with aura and without status migrainosu s, not intractable G43.109 Active 0153144 Problem Essential hypertension I10 Active 52880541 Problem Migraine aura, persistent, intractable G43.519 A ctive 486628338 Problem Chronic obstructive pulmonary disease, unspecified COPD ty pe J44.9 Active 31345354 Problem Diabetic polyneuropathy asso ciated with diabetes mellitus due to underlying condition E08.42 Active 82690511 Problem Erectile dysfunction, unspecified erectile dysfunction typ e N52.9 Active 728985705 Problem Neuropathy G62.9 Active 515848325 Problem Vitamin D deficiency disease E55.9 Active 347 07604 Problem 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 Active 24474 004 Problem Combined hyperlipidemia E78.2 Active 20620222 3 Problem Metabolic disorder, unspecified E88.9 Active 76476317 Problem Arthralgia of shoulder region, right M25.511 Act aisha 655119705 Problem Uncontrolled type 1 diabetes mellitus without complication E10.65 Active 130729150 Problem 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 Active 423367763 Problem PAD (peripheral artery disease) I73.9 Active 378056867 Problem Benign prostatic hyperplasia with lower urinary tract symptoms N40.1 Active 7514881006289 Problem Vitamin D deficiency E55.9 Active 93239117 Problem Diabetes, type 1.5, uncontrolled, 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 108892667 ALLERGIES No Known Allergies ENCOUNTERS from 1975 to 2020-04-08 Encounter Location Date Provider Diagnosis [address] [address] Apr, Nelida Marquis Type 2 diabetes mellitus with other spec ified complication, unspecified correction insulin use status E11.69 IMMUNIZATIONS Vaccine Route Administration Date Status Pneumococcal Adult 0.5mL (Pneumovax 23) IM Intramuscular June 122017 Administered Influenza (6mo & up) Fluzone Unknown Mar 30, 2017 Adm inistered SOCIAL HISTORY Tobacco Use: Social History Observation Description Date Details (start date - stop date) Current Smoker Sex Assigned At : Social History Observation Description Sex Assigned At Unknown Education: Question Answer Notes Level of Education: Not finished High School Audit Question Answer Notes Total Score: 0 Interpretation: Alcohol Education Language: Question Answer Notes Languages spoken: Iraqi Baptist: Question Answer Notes Baptist PT STATES NO PREFERE NCE Drug and Alcohol Question Answer Notes Total Score: 0 Interpretation: No problems reported Alcohol Screening: Question Answer Notes Did you have a drink containing alcohol in the past year? Ye s Points 1 Interpretation Negative How many drinks did you have on a typica l day when you were drinking in the past year? 1 or 2 (0 points) How often did you have a drink containing alcohol in t he past year? Monthly or less (1 point) Tobacco Use: Question Answer Notes Are you a: current smoker Smoking Cessation Information Given 12/25/2019 Patient counseled on the dangers of tobacco use and urged to quit: 12/25/2019 How many cigarettes a day do you smoke? 5 or less Are you interested in quitting? Thinking about quitting Counseled the patient on smoking cessation, education provid ed 12/25/2019 REASON FOR REFERRAL No Information VITAL SIGNS Weight 182 lbs Apr, Height 70.5 in Apr, BMI 25.74 kg/m2 Apr, Heart Rate 112 /min Apr, Respiratory Rate 18 /min Apr, Temperature 97.6 degrees Fahrenheit Apr, Oximetry 95 Apr, Blood pressure systolic 122 mm Hg Apr, Blood pressure diastolic 86 mm Hg Apr, MEDICATIONS Medication SIG (Take, Route, Frequency, Duration) Notes Start Da te End Date Status HydrOXYzine HCl 25 mg 1 tablet as needed for pruri tus Orally every 6 hrs for 30 day(s) July, Active Ventolin HFA 108 (90 Base) MCG/ACT 1 puffs as needed I nhalation FRANCE every 6 hrs for 30 day(s) Active Omeprazole 40 MG 1 capsule Orally Daily for 90 day(s) Active TraZODone HCl 50 MG 1 tablet at bedtime as neede d Orally Once a day for 30 day(s) Sep, Active Gabapentin 600 MG 1 tablet Orally three times daily for 30 day(s ) Feb, Active Irbesartan 300 MG 1 tablet Orally qpm for 30 Days Active Chlorthalidone 25 MG 1 tablet in the morning with food Orally Once a day for 30 Days Not-Taking Spironolactone 25 mg 1 tablet Orally Twice a day for 30 Days Not-Taking AmLODIPine Besylate 5 MG 1 tablet Orally Once a day for 30 Days Active Trelegy Ellipta 100-62.5-25 MCG/INH 1 puff Inhalation Once a day for 30 day(s) Active Celexa 40 MG 1 tab Orally Once a day for 30 day(s) Active RA Alcohol Swabs 70 % USE 5 TIMES A DAY FOR INSULI NS AND 4 TIMES A DAY FOR BLOOD GLUCOSE TESTING subcutaneously 5 times a day for 30 Days Active Invokana 100 MG 1 tablet before first meal Orally Once a day for 30 Days Jun, Active Atenolol 100 MG 1 tablet Orally Once a day for 30 Days Active OneTouch Verio w/Device as directed _ qid for 30 days Active Viagra 25 MG 1 tablet as needed Orally Once a day for 30 day(s) Active Glucose 4 GM take one tablet Orally as needed for low blood sugars Active Alcohol Swabs 70 % 1 topically Five times daily for insulin & 4times daily for testing for 30 Days Sep, Active Humalog Pen 100 UNIT/ML MDD :33units/Day Sliding sca le/meal Subcutaneous before meals and at bedtime for 30 Days Active OneTouch Verio - as directed Dx E11.9 AC TID and QHS, prn when not well five times daily and as needed for 30 Days Active Proctofoam HC 1-1 % 1 application as needed Rect al Four times a day for 30 day(s) Aug, Not-Taking Aspirin 81 MG 1 tablet Orally Once a day for 30 day(s) Dec, Active Ibuprofen 400 MG 1 tablet with food or milk a s needed Orally Three times a day as needed for pain or fever Acti ve Anusol-HC 2.5 % 1 application to affected area Rectal Tw ice a day for 30 day(s) Mar, Not-Taking APAP 500 MG 1 capsule as needed Orally every 6 hrs for 30 days Active BD Pen Needle Mini U/F 31G X 5 MM as directed subcutan eously 5 times / day as needed for 30 Days Active Ergocalciferol 1.25 MG (20532 UT) 1 capsule Orally every oth er week for 30 Days Jun, Active Metformin HCl 500 MG 1 tab Orally AC BID for 30 Days Not-Taking HydrALAZINE HCl 10 MG 1 tablet with food Orally three times daily for 30 day(s) Active Tizanidine HCl 4 MG 1 tablet as needed Orally Three times a day for 30 Days Feb, Active Levalbuterol Tartrate 45 MCG/ACT 1 puff as needed Inha lation every 4 hrs for 90 days Dec, Active Atorvastatin Calcium 40 MG 1 tablet Orally Once a day at bedtime for 30 Days Oct, Active Depakote ER 500 MG 2 tablets Orally before bedtime for 30 day(s) Not-Taking Chlorthalidone 25 MG TAKE ONE TABLET BY MOUTH EVERY MORNING WITH FOOD for 30 Active BD Pen Needle Jessica U/F 32G X 4 MM as directed subcutan eously 5 times a day as needed for 30 Days Sep, Active Basaglar KwikPen 100 UNIT/ML 60 units Subcutaneous before bedtime for 50 Active Lancets 30G - Dx E11.9 One Touch Delica rodriguez bcutaneously five times daily and as needed for 30 Days Active Flomax 0.4 MG 1 capsule Orally Once a day for 30 day(s) Not-Taking PROCEDURES No Information RESULTS Component Value Reference Range HEMOGLOBIN A1c Reviewed date:06/09/2017 18:11:08 Interpretation: Performing Lab:[facility],[address] [place] [address], ,[place] [address] HEMOGLOBIN A1c 8.4 ESTIMATED AVERAGE GLUCOSE 194 60-110 REASON FOR VISIT 2 week follow up MEDICAL (GENERAL) HISTORY Type Description Date Medical History GERD Medical History Hemoptysis, COPD-GOld Standa rd Mod. stage II 69% FEV1, FEV1/FVC ratio 0.66 stage II moderate COPD on Joselyn 12/2015 Medical History Melena-GI consulted, no further episodes Medical History +MH T2DM IRequiring rapid on set (02/2017 [facility] IFG range)c WILLIAMS 65 pancreatic antibiotic neg./ IA2 neg./ ZT8 Antibody all neg. admitted in DKA vs. HHS03/2017, c Beta Hydroxy Butylate>46, ph 7.30, C-peptide 2.1 c FBS 330 Medical History HTNive urgency 07/2017 ED, SM C-Echo 07/14/2017 nl LV Systolic Dysfxn, Grade 1 LV Diastolic Dysfxn, mild elevated PAP's otherwise nl Medical History ED 07/20/2018 new LBBB on EKG follows c Dr Ana Toribio Medical History Syncope c 02/26 holter symps . not correlating c any abnl rhythm, 30Day multievent monitor 05/06 to 06/05/2016 underlying sinus c occasional PAC's intermittently freq. PVC's 74-167bpm, 74-176 bpm freq. pVCs 47symp. transmissions c sinus only&occasionally isolated PVC's, & Sinus Tachyc. to 142 10 asymp. autotriggered events c S. Tach. 120-165; no significant prashant or tachy arrhythmias Medical History 10/2018 Acute ischemia in Rt. Post. frontal lobe migraine vs. acute ischemia Medical History hypertension, essential-h/o hypertensive crisis seen in ED 09/2014 in [facility] [place] c h/o cocaine use Medical History CHRONIC MIGRAINES Surgical History EGD c Dr. Montgomery small hiatal hernia o/w neg/nl 03/2016 Hospitalization History DKA vs. HHS see above for details 2017 Hospitalization History HTN 07/11-07/13/2017 Goals Section No Information Health Concerns No Information MEDICAL EQUIPMENT No Information MENTAL STATUS No Information FUNCTIONAL STATUS No Information ASSESSMENTS Encounter Date Diagnosis Assessment Notes Treatment Notes Treatm ent Clinical Notes Apr, Type 2 diabetes mellitus wit h other specified complication, unspecified superintendent terminal insulin use status (ICD-10 - E11.69) Will reduce Levemir to 43Units, also add Jardiance PLAN OF TREATMENT Medication Medication Name Sig Start Date Stop Date APAP 500 MG 1 capsule as needed Orally every 6 hrs for 30 da ys Ibuprofen 400 MG 1 tablet with food or milk a s needed Orally Three times a day as needed for pain or fever Tizanidine HCl 4 MG 1 tablet as needed Orally Three times a day for 30 Days Feb, Gabapentin 600 MG 1 tablet Orally three times daily for 30 day(s ) Feb, OneTouch Verio - as directed Dx E11.9 AC TID and QHS, prn when not well five times daily and as needed for 30 Days Treatment Notes Assessment Notes Clinical Notes Type 2 diabetes mellitus with other spec ified complication, unspecified correction insulin use status Will reduce Levemir to 43Uni ts, also add Jardiance Next Appt Details 3-4 Weeks c A1c 1W prior Reason: Provider Name:Nelida Marquis, 04-30 10:45:00 AM, [address] [place], [address], Insurance Providers Payer Name Payer Address Payer Phone Insured Name Patient Relati onship to Insured Coverage Start Date Coverage End Date [facility] [address] [facility] [place] [id number] JOSEPH HERZOG,PINKY self
--- OUTSIDE RECORDS SUMMARY | 2020-04-10 17:24 | CCD | Continuity of Care Document ---
Author Author Margie TAMEZ M.D. Organization Unknown Address [address] [place] [address] Phone [phone] Care Team Providers Care Contour Grinder Name Role Phone Nelida Marquis RPA AUTM [phone] Problems Active Problems Provider Date Chronic tension-type headache Myrna Tamez M.D. Onset: Chronic intractable migraine without aura Myrna Tamez M.D. Onset: 03/03/2017 Disorders of initiating and maintaining sleep Jazmin Armando Onset: 03/03/2017 Low back pain Myrna Tamez M.D. Onset: 03/03/2017 Spondylolysis Myrna Tamez M.D. Onset: 03/03/2017 Syncope and collapse Myrna Tamez M.D. Onset: 04/14/2017 Migraine without aura, not refractory Myrna Tamez M.D. 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 Onset: 01/05/2019 Type 2 diabetes mellitus with diabetic polyneuropathy Myrna Tamez M.D. Onset: 01/05/2019 Social History Type Date Description Comments Sex Unknown Tobacco Use Start: Unknown End: Unknown Patient is a former smoker Allergies, Adverse Reactions, Alerts Description No Known Drug Allergies Medications Active Medications SIG Qnty Indications Ordering Provide r Date Divalproex Sodium ER 500mg Tablets ER 24HR 2 po qhs. 60tabs Myrna Tamez M.D. 11/24/2018 Botox 200Unit Solution Rec inject 155 units intramuscular into head neck and shoulders for migraines every 3 months wasting 45 units 1units Myrna Tamez M.D. 08/30/2018 Immunizations Description No Information Available Vital Signs Date Vital Result Comment 03/03/2017 9:37am BP Systolic 130 mmHg BP Diastolic 75 mmHg Heart Rate 74 /min Respiratory Rate 16 /min Height 71 inches 5'11" Weight 185.00 lb BMI (Body Mass Index) 25.8 kg/m2 [place] Body Weight 172 lb Results Description No Information Available Procedures Date Code Description Status 01/31/2020 [address]74 [place] Muscles Inn ervated By Facial, Trigeminal, Cerv And Acces Completed 10/29/2019 54784 [place] Muscles Inn ervated By Facial, Trigeminal, Cerv And Acces Completed Medical Devices Description No Information Available Encounters Type Date Location Provider Dx Diagnosis Office Visit 04/01/2020 2:45p Main office - [place] Jazmin Armando G43.719 Chronic migraine w/o aura, intractable, w/o stat migr G44.221 Chronic tension-type headach e, intractable I63.031 Cerebral infrc due to thromb osis of right carotid artery M54.5 Low back pain M43.06 Spondylolysis, 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 04/01/2020 G44.221 Chronic tension-type headache, i ntractable Myrna Tamez M.D. 04/01/2020 I63.031 Cerebral infarction due to thrombosis of right carotid artery Myrna Tamez M.D. 04/01/2020 M54.5 Low back pain Myrna Tamez M.D. 04/01/2020 M43.06 Spondylolysis, lumbar region Puja Tamez M.D. 04/01/2020 F51.01 Primary insomnia Pedrito Armando 01/31/2020 G43.719 Chronic migraine wit hout aura, intractable, without status migrainosus Myrna Tamez M.D. 10/29/2019 G43.719 Chronic migraine wit hout aura, intractable, without status migrainosus Myrna Tamez M.D. Plan of Treatment No Information Available Functional Status Description No Information Available Mental Status Description No Information Available Referrals Refer to Dr Reason for Referral Status Appt Date Myrna Tamez M.D. Created [facility] [address] [place] [address] [phone]
--- OUTSIDE RECORDS SUMMARY | 2020-04-10 17:25 | CCD ---
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 Active 941881394 Problem Intractable migraine with aura with status migrainosus G43.111 Active 617289268 Problem Depression, unspecified depression type F32.9 Active 33194674 Problem Risky sexual behavior Z72.51 Active 773673835 Problem Muscle tension headache G44.209 Active 24854000 6 Problem DDD (degenerative disc disease), lumbar M51.36 Active 52493248 Problem Hypogonadism in male E29.1 Active 55669077 Problem Migraine aura, persistent, intractable G43.519 A ctive 945541361 Problem Chronic obstructive pulmonary disease, unspecified COPD ty pe J44.9 Active 64655073 Problem Syncope, unspecified syncope type R55 Active 470255879 Problem 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 Active 098134761 Problem Moderate persistent asthma, unspecified whether complicate d J45.40 Active 749173641 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 Active 890048275 Problem Sleep disorder, unspecified G47.9 Active 3989 8005 Problem Sleep apnea in adult G47.30 Active 68253800 Problem Migraine with aura and without status migrainosu s, not intractable G43.109 Active 8625293 Problem Essential hypertension I10 Active 25011154 Problem ANALILIA (obstructive sleep apnea) G47.33 Active 78 805574 Problem Tobacco use Z72.0 Active 918350368 Problem Diabetic polyneuropathy asso ciated with diabetes mellitus due to underlying condition E08.42 Active 40064922 Problem Erectile dysfunction, unspecified erectile dysfunction typ e N52.9 Active 995197664 Problem LBBB (left bundle branch block) I44.7 Active 45338872 Problem Gastroesophageal reflux disease, esophagitis pre sence not specified K21.9 Active 461511152 Problem Spondylosis without myelopathy or radiculopathy, lumbar region M47.816 Active 70673638 Problem Neuropathy G62.9 Active 972089169 Problem Vitamin D deficiency disease E55.9 Active 347 85138 Problem Diabetes, type 1.5, uncontrolled, 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 303458414 Problem Uncontrolled type 1 diabetes mellitus without complication E10.65 Active 836418324 Problem Combined hyperlipidemia E78.2 Active 55434042 3 Problem Intractable episodic cluster headache G44.011 Ac tive 632634370 Problem Metabolic disorder, unspecified E88.9 Active 78698641 Problem 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 Active 05028 004 Problem Benign prostatic hyperplasia with lower urinary tract symptoms N40.1 Active 0286083914520 Problem PAD (peripheral artery disease) I73.9 Active 604951381 Problem Vitamin D deficiency E55.9 Active 41041682 ALLERGIES No Known Allergies ENCOUNTERS from 1975 to 2020-02-16 Encounter Location Date Provider Diagnosis [address] [address] Feb, Nelida Marquis IMMUNIZATIONS Vaccine Route Administration Date Status Pneumococcal [...] Education Language: Question Answer Notes Languages spoken: Amharic Restoration: Question Answer Notes [facility]oration PT STATES NO PREFERE NCE Drug and [...] REASON FOR REFERRAL No Information VITAL SIGNS No information MEDICATIONS Medication SIG (Take, Route, Frequency, Duration) Notes Start Da te End Date Status Anusol-HC 2.5 % 1 application to affected area Rectal Tw ice a day for 30 day(s) Mar, Not-Taking Celexa 40 MG 1 tab Orally Once a day for 30 day(s) Active Aspirin 81 MG 1 tablet Orally Once a day for 30 day(s) Dec, Active Depakote ER 500 MG 2 tablets Orally before bedtime for 30 day(s) Not-Taking Ventolin HFA 108 (90 Base) MCG/ACT 1 puffs as needed I nhalation FRANCE every 6 hrs for 30 day(s) Active Basaglar KwikPen 100 UNIT/ML 60 units Subcutaneous before bedtime for 50 Active Humalog Pen 100 UNIT/ML MDD :33units/Day Sliding sca le/meal Subcutaneous before meals and at bedtime for 30 Days Active HydrOXYzine HCl 25 mg 1 tablet as needed for pruri tus Orally every 6 hrs for 30 day(s) July, Active Ergocalciferol 1.25 MG (52941 UT) 1 capsule Orally every oth er week for 30 Days Jun, Active Invokana 100 MG 1 tablet before first meal Orally Once a day for 30 Days Jun, Active TraZODone HCl 50 MG 1 tablet at bedtime as neede d Orally Once a day for 30 day(s) Sep, Active Chlorthalidone 25 MG TAKE ONE TABLET BY MOUTH EVERY MORNING WITH FOOD for 30 Active OneTouch Verio w/Device as directed _ qid for 30 days Active APAP 500 MG 1 capsule as needed Orally every 6 hrs for 30 day(s) Active Irbesartan 300 MG 1 tablet Orally qpm for 30 Days Active Trelegy Ellipta 100-62.5-25 MCG/INH 1 puff Inhalation Once a day for 30 day(s) Active Levalbuterol Tartrate 45 MCG/ACT 1 puff as needed Inha lation every 4 hrs for 90 days Dec, Active Ibuprofen 400 MG 1 tablet with food or milk a s needed Orally Three times a day as needed for pain or fever for 30 day(s) Active AmLODIPine Besylate 5 MG 1 tablet Orally Once a day for 30 Days Active RA Alcohol Swabs 70 % USE 5 TIMES A DAY FOR INSULI NS AND 4 TIMES A DAY FOR BLOOD GLUCOSE TESTING subcutaneously 5 times a day for 30 Days Active Chlorthalidone 25 MG 1 tablet in the morning with food Orally Once a day for 30 Days Not-Taking Atenolol 100 MG 1 tablet Orally Once a day for 30 Days Active Metformin HCl 500 MG 1 tab Orally AC BID for 30 Days Not-Taking Glucose 4 GM take one tablet Orally as needed for low blood sugars Active Flomax 0.4 MG 1 capsule Orally Once a day for 30 day(s) Not-Taking Viagra 25 MG 1 tablet as needed Orally Once a day for 30 day(s) Active OneTouch Verio - as directed Dx E11.9 AC TID and QHS, prn when not well five times daily and as needed for 30 Days Active HydrALAZINE HCl 10 MG 1 tablet with food Orally three times daily for 30 day(s) Active BD Pen Needle Mini U/F 31G X 5 MM as directed subcutan eously 5 times / day as needed for 30 Days Active Gabapentin 400 MG 1 capsule Orally three times daily for 30 day(s) Active Proctofoam HC 1-1 % 1 application as needed Rect al Four times a day for 30 day(s) Aug, Not-Taking Omeprazole 40 MG 1 capsule Orally Daily for 90 day(s) Active Alcohol Swabs 70 % 1 topically Five times daily for insulin & 4times daily for testing for 30 Days Sep, Active BD Pen Needle Jessica U/F 32G X 4 MM as directed subcutan eously 5 times a day as needed for 30 Days Sep, Active Spironolactone 25 mg 1 tablet Orally Twice a day for 30 Days Not-Taking Lancets 30G - Dx E11.9 One Touch Delica rodriguez bcutaneously five times daily and as needed for 30 Days Active Atorvastatin Calcium 40 MG 1 tablet Orally Once a day at bedtime for 30 Days Oct, Active PROCEDURES No Information RESULTS No Results REASON FOR VISIT Refill MEDICAL (GENERAL) HISTORY Type Description Date Medical [...] 330 Medical History HTNive urgency 07/2017 ED, C-Echo 07/14/2017 nl LV Systolic Dysfxn, Grade 1 LV Diastolic Dysfxn, mild elevated PAP's otherwise nl Medical History ED 07/20/2018 new LBBB on EKG follows gema Toribio Medical History Syncope c 02/26 holter [...] hypertensive crisis seen in ED 09/2014 in [facility] [place], [place] c h/o cocaine use Medical History CHRONIC MIGRAINES Surgical History EGD c Dr. Montgomery small hiatal hernia o/w neg/nl 03/2016 Hospitalization History DKA vs. HHS see above for details 2017 Hospitalization History HTN 07/11-07/13/2017 Goals Section No Information Health Concerns No Information MEDICAL EQUIPMENT No Information MENTAL STATUS No Information FUNCTIONAL STATUS No Information ASSESSMENTS No Information PLAN OF TREATMENT Medication Medication Name Sig Start Date Stop Date OneTouch Jaime - as directed Dx E11.9 AC TID and QHS, prn when not well five times daily and as needed for 30 Days Next Appt Details Provider Name:Nelida aMrquis, 2019-03 10:30:00 AM, [address] [place] [address], [phone], Provider Name:Nelida Marquis, 04-30 10:45:00 AM, [address] [place] [address], [phone], Insurance Providers Payer Name Payer Address Payer Phone Insured Name Patient Relati onship to Insured Coverage Start Date Coverage End Date [facility] [address] [facility] [phone] [place]
--- OUTSIDE RECORDS SUMMARY | 2020-04-10 17:25 | CCD ---
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 Active 999145164 Problem Depression, unspecified depression type F32.9 Active 69824042 Problem Bilateral headaches R51 Active 293890305 Problem Muscle tension headache G44.209 Active 78142382 6 Problem Intractable migraine with aura with status migrainosus G43.111 Active 663246993 Problem Intractable episodic cluster headache G44.011 Ac tive 917801544 Problem Risky sexual behavior Z72.51 Active 842858413 Problem Spondylosis without myelopathy or radiculopathy, lumbar region M47.816 Active 94686391 Problem 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 Active 389259059 Problem DDD (degenerative disc disease), lumbar M51.36 Active 24335943 Problem Hypogonadism in male E29.1 Active 55400947 Problem Abnormal reaction to tuberculin test R76.11 Act aisha 42083418 Problem Syncope, unspecified syncope type R55 Active 891591228 Problem Sleep apnea in adult G47.30 Active 87641728 Problem Moderate persistent asthma, unspecified whether complicate d J45.40 Active 085814673 Problem ANALILIA (obstructive sleep apnea) G47.33 Active 78 885277 Problem Tobacco use Z72.0 Active 070055865 Problem Sleep disorder, unspecified G47.9 Active 3989 8005 Problem LBBB (left bundle branch block) I44.7 Active 64366244 Problem Gastroesophageal reflux disease, esophagitis pre sence not specified K21.9 Active 279265547 Problem Migraine with aura and without status migrainosu s, not intractable G43.109 Active 5734090 Problem Essential hypertension I10 Active 90117133 Problem Migraine aura, persistent, intractable G43.519 A ctive 723419744 Problem Chronic obstructive pulmonary disease, unspecified COPD ty pe J44.9 Active 30705566 Problem Diabetic polyneuropathy asso ciated with diabetes mellitus due to underlying condition E08.42 Active 31766150 Problem Erectile dysfunction, unspecified erectile dysfunction typ e N52.9 Active 766137374 Problem Neuropathy G62.9 Active 407835833 Problem Vitamin D deficiency disease E55.9 Active 347 58144 Problem 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 Active 38136 004 Problem Combined hyperlipidemia E78.2 Active 38508416 3 Problem Metabolic disorder, unspecified E88.9 Active 89510588 Problem Arthralgia of shoulder region, right M25.511 Act aisha 477890399 Problem Uncontrolled type 1 diabetes mellitus without complication E10.65 Active 301836948 Problem 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 terminal 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 Active 437090217 Problem PAD (peripheral artery disease) I73.9 Active 811212204 Problem Benign prostatic hyperplasia with lower urinary tract symptoms N40.1 Active 0034253507456 Problem Vitamin D deficiency E55.9 Active 66365374 Problem Diabetes, type 1.5, uncontrolled, 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 630124819 ALLERGIES No Known Allergies ENCOUNTERS from 1975 to 2020-03-21 Encounter Location Date Provider Diagnosis [address] [address] Mar, Nelida Marquis IMMUNIZATIONS Vaccine Route Administration Date [...] Education Language: Question Answer Notes Languages spoken: Chadian Judaism: Question Answer Notes Judaism PT STATES NO PREFERE NCE Drug and [...] Notes Start Da te End Date Status TraZODone HCl 50 MG 1 tablet at bedtime as neede d Orally Once a day for 30 day(s) Sep, Active Gabapentin 600 MG 1 tablet Orally three times daily for 30 day(s ) Feb, Active Irbesartan 300 MG 1 tablet Orally qpm for 30 Days Active OneTouch Verio - as directed Dx E11.9 AC TID and QHS, prn when not well five times daily and as needed for 30 Days Active HydrALAZINE HCl 10 MG 1 tablet with food Orally three times daily for 30 day(s) Active Tizanidine HCl 4 MG 1 tablet as needed Orally Three times a day for 30 Days Feb, Active Trelegy Ellipta 100-62.5-25 MCG/INH 1 puff Inhalation Once a day for 30 day(s) Active Celexa 40 MG 1 tab Orally Once a day for 30 day(s) Active RA Alcohol Swabs 70 % USE 5 TIMES A DAY FOR INSULI NS AND 4 TIMES A DAY FOR BLOOD GLUCOSE TESTING subcutaneously 5 times a day for 30 Days Active HydrOXYzine HCl 25 mg 1 tablet as needed for pruri tus Orally every 6 hrs for 30 day(s) July, Active Ventolin HFA 108 (90 Base) MCG/ACT 1 puffs as needed I nhalation [place] every 6 hrs for 30 day(s) Active Omeprazole 40 MG 1 capsule Orally Daily for 90 day(s) Active Viagra 25 MG 1 tablet as needed Orally Once a day for 30 day(s) Active Glucose 4 GM take one tablet Orally as needed for low blood sugars Active Chlorthalidone 25 MG 1 tablet in the morning with food Orally Once a day for 30 Days Not-Taking Spironolactone 25 mg 1 tablet Orally Twice a day for 30 Days Not-Taking AmLODIPine Besylate 5 MG 1 tablet Orally Once a day for 30 Days Active Alcohol Swabs 70 % 1 topically Five times daily for insulin & 4times daily for testing for 30 Days Sep, Active Invokana 100 MG 1 tablet before first meal Orally Once a day for 30 Days Jun, Active Atenolol 100 MG 1 tablet Orally Once a day for 30 Days Active Proctofoam HC 1-1 [...] a day for 30 day(s) Mar, Not-Taking Metformin HCl 500 MG 1 tab Orally AC BID for 30 Days Not-Taking BD Pen Needle Mini U/F 31G X 5 MM as directed subcutan eously 5 times / day as needed for 30 Days Active Ergocalciferol 1.25 MG (53083 UT) 1 capsule Orally every oth er week for 30 Days Jun, Active OneTouch Verio w/Device as directed _ qid for 30 days Active APAP 500 MG 1 capsule as needed Orally every 6 hrs Active Humalog Pen 100 UNIT/ML MDD :33units/Day Sliding sca le/meal Subcutaneous before meals and at bedtime for 30 Days Active Levalbuterol Tartrate 45 MCG/ACT 1 puff [...] 30 day(s) Not-Taking PROCEDURES No Information RESULTS No Results REASON FOR VISIT Appointment MEDICAL (GENERAL) HISTORY Type Description Date Medical [...] hypertensive crisis seen in ED 09/2014 in [facility] [place], [place] c h/o cocaine use Medical History [...] capsule as needed Orally every 6 hrs Ibuprofen 400 MG 1 tablet with food or milk a s needed Orally Three times a day as needed for pain or fever Tizanidine HCl 4 MG 1 tablet as needed Orally Three times a day for 30 Days Feb, Gabapentin 600 MG 1 tablet Orally three times daily for 30 day(s ) Feb, Next Appt Details Provider Name:Nelida Redd Benitez, 04-30 10:45:00 AM, [facility] [place], [address], Insurance Providers Payer Name Payer Address Payer Phone Insured Name Patient Relati onship to Insured Coverage Start Date [facility] End [facility] [address] [facility] [phone] PINKY BEASLEY self
--- OUTSIDE RECORDS SUMMARY | 2020-04-10 17:25 | CCD ---
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 Active 813046625 Problem Depression, unspecified depression type F32.9 Active 69727119 Problem Bilateral headaches R51 Active 631551139 Problem Muscle tension headache G44.209 Active 56824782 6 Problem Intractable migraine with aura with status migrainosus G43.111 Active 070253122 Problem Intractable episodic cluster headache G44.011 Ac tive 760857544 Problem Risky sexual behavior Z72.51 Active 063907609 Problem Spondylosis without myelopathy or radiculopathy, lumbar region M47.816 Active 06532207 Problem 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 Active 195972468 Problem DDD (degenerative disc disease), lumbar M51.36 Active 91284110 Problem Hypogonadism in male E29.1 Active 98544004 Problem Abnormal reaction to tuberculin test R76.11 Act aisha 63281564 Problem Syncope, unspecified syncope type R55 Active 906645947 Problem Sleep apnea in adult G47.30 Active 06128234 Problem Moderate persistent asthma, unspecified whether complicate d J45.40 Active 574320667 Problem ANALILIA (obstructive sleep apnea) G47.33 Active 78 990482 Problem Tobacco use Z72.0 Active 876519132 Problem Sleep disorder, unspecified G47.9 Active 3989 8005 Problem LBBB (left bundle branch block) I44.7 Active 58688186 Problem Gastroesophageal reflux disease, esophagitis pre sence not specified K21.9 Active 408930530 Problem Migraine with aura and without status migrainosu s, not intractable G43.109 Active 6362997 Problem Essential hypertension I10 Active 34870773 Problem Migraine aura, persistent, intractable G43.519 A ctive 745634515 Problem Chronic obstructive pulmonary disease, unspecified COPD ty pe J44.9 Active 38992616 Problem Diabetic polyneuropathy asso ciated with diabetes mellitus due to underlying condition E08.42 Active 37547358 Problem Erectile dysfunction, unspecified erectile dysfunction typ e N52.9 Active 818837536 Problem Neuropathy G62.9 Active 972176654 Problem Vitamin D deficiency disease E55.9 Active 347 17738 Problem 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 Active 88671 004 Problem Combined hyperlipidemia E78.2 Active 63789728 3 Problem Metabolic disorder, unspecified E88.9 Active 15965066 Problem Arthralgia of shoulder region, right M25.511 Act aisha 091326788 Problem Uncontrolled type 1 diabetes mellitus without complication E10.65 Active 395307236 Problem 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 Active 438550101 Problem PAD (peripheral artery disease) I73.9 Active 555329293 Problem Benign prostatic hyperplasia with lower urinary tract symptoms N40.1 Active 8124470999179 Problem Vitamin D deficiency E55.9 Active 02535495 Problem Diabetes, type 1.5, uncontrolled, 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 183686306 ALLERGIES No Known Allergies ENCOUNTERS from 1975 to 2020-03-26 Encounter Location Date Provider Diagnosis [address] [address] Apr, Nelida Marquis Type 2 diabetes mellitus with other spec ified complication, unspecified mcc insulin use status E11.69 IMMUNIZATIONS Vaccine Route [...] Education Language: Question Answer Notes Languages spoken: Bahamian Orthodoxy: Question Answer Notes Orthodoxy PT STATES NO PREFERE NCE Drug and [...] for 30 Days Active Ergocalciferol 1.25 MG (31380 UT) 1 capsule Orally every oth er [...] HEMOGLOBIN A1c Reviewed date:06/09/2017 18:11:08 Interpretation: Performing Lab:[facility],[address] [place] [address], ,[place] [address] HEMOGLOBIN A1c 8.4 ESTIMATED AVERAGE GLUCOSE 194 [...] hypertensive crisis seen in ED 09/2014 in [facility] [place], [place] c h/o cocaine use Medical History [...] mellitus wit h other specified complication, unspecified clinical consultant insulin use status (ICD-10 - E11.69) Will [...] mellitus with other spec ified complication, unspecified mcc insulin use status Will reduce Levemir to 43Uni ts, also add Jardiance Next Appt Details 3-4 Weeks c A1c 1W prior Reason: Provider Name:Nelida Marquis, 04-30 10:45:00 AM, [address] [place], [address], Insurance Providers Payer Name Payer Address Payer Phone Insured Name Patient Relati onship to Insured Coverage Start Date Coverage End Date [facility] [address] [facility] [address] JOSEPH HERZOG,PINKY self
--- OUTSIDE RECORDS SUMMARY | 2020-04-10 17:25 | CCD ---
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 Active 529164315 Problem Depression, unspecified depression type F32.9 Active 92739745 Problem Bilateral headaches R51 Active 799361863 Problem Muscle tension headache G44.209 Active 68321173 6 Problem Intractable migraine with aura with status migrainosus G43.111 Active 316373052 Problem Intractable episodic cluster headache G44.011 Ac tive 717751535 Problem Risky sexual behavior Z72.51 Active 315939585 Problem Spondylosis without myelopathy or radiculopathy, lumbar region M47.816 Active 23759373 Problem 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 Active 375333851 Problem DDD (degenerative disc disease), lumbar M51.36 Active 39785868 Problem Hypogonadism in male E29.1 Active 81920838 Problem Abnormal reaction to tuberculin test R76.11 Act aisha 30546071 Problem Syncope, unspecified syncope type R55 Active 061548788 Problem Sleep apnea in adult G47.30 Active 91192678 Problem Moderate persistent asthma, unspecified whether complicate d J45.40 Active 385693293 Problem ANALILIA (obstructive sleep apnea) G47.33 Active 78 635939 Problem Tobacco use Z72.0 Active 688104560 Problem Sleep disorder, unspecified G47.9 Active 3989 8005 Problem LBBB (left bundle branch block) I44.7 Active 37600008 Problem Gastroesophageal reflux disease, esophagitis pre sence not specified K21.9 Active 424163235 Problem Migraine with aura and without status migrainosu s, not intractable G43.109 Active 1359212 Problem Essential hypertension I10 Active 14779026 Problem Migraine aura, persistent, intractable G43.519 A ctive 817739736 Problem Chronic obstructive pulmonary disease, unspecified COPD ty pe J44.9 Active 74850645 Problem Diabetic polyneuropathy asso ciated with diabetes mellitus due to underlying condition E08.42 Active 89349358 Problem Erectile dysfunction, unspecified erectile dysfunction typ e N52.9 Active 966810045 Problem Neuropathy G62.9 Active 988783589 Problem Vitamin D deficiency disease E55.9 Active 347 73025 Problem 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 Active 52034 004 Problem Combined hyperlipidemia E78.2 Active 28037517 3 Problem Metabolic disorder, unspecified E88.9 Active 72245711 Problem Arthralgia of shoulder region, right M25.511 Act aisha 025643731 Problem Uncontrolled type 1 diabetes mellitus without complication E10.65 Active 798033607 Problem 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 Active 999938145 Problem PAD (peripheral artery disease) I73.9 Active 166669605 Problem Benign prostatic hyperplasia with lower urinary tract symptoms N40.1 Active 0064926673340 Problem Vitamin D deficiency E55.9 Active 58455793 Problem Diabetes, type 1.5, uncontrolled, 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 [place], [place] c h/o cocaine use Medical History [...] 30 Days Next Appt Details Provider Name:Nelida Marquis, 04-30 10:45:00 AM, [address] [place], [address], Insurance Providers Payer Name Payer Address Payer Phone Insured Name Patient Relati onship to Insured Coverage Start Date Coverage End Date [facility] [address] [facility] [id number] PINKY BEASLEY self
--- OUTSIDE RECORDS SUMMARY | 2020-04-10 17:25 | CCD ---
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 Active 084422697 Problem Depression, unspecified depression type F32.9 Active 35445413 Problem Bilateral headaches R51 Active 608783898 Problem Muscle tension headache G44.209 Active 33594173 6 Problem Intractable migraine with aura with status migrainosus G43.111 Active 973101895 Problem Intractable episodic cluster headache G44.011 Ac tive 564202722 Problem Risky sexual behavior Z72.51 Active 027461957 Problem Spondylosis without myelopathy or radiculopathy, lumbar region M47.816 Active 12115938 Problem 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 Active 566936973 Problem DDD (degenerative disc disease), lumbar M51.36 Active 39474442 Problem Hypogonadism in male E29.1 Active 32155579 Problem Abnormal reaction to tuberculin test R76.11 Act aisha 83453266 Problem Syncope, unspecified syncope type R55 Active 545064213 Problem Sleep apnea in adult G47.30 Active 22600381 Problem Moderate persistent asthma, unspecified whether complicate d J45.40 Active 908385261 Problem ANALILIA (obstructive sleep apnea) G47.33 Active 78 748286 Problem Tobacco use Z72.0 Active 762509361 Problem Sleep disorder, unspecified G47.9 Active 3989 8005 Problem LBBB (left bundle branch block) I44.7 Active 72194226 Problem Gastroesophageal reflux disease, esophagitis pre sence not specified K21.9 Active 232930848 Problem Migraine with aura and without status migrainosu s, not intractable G43.109 Active 0383762 Problem Essential hypertension I10 Active 92236286 Problem Migraine aura, persistent, intractable G43.519 A ctive 548059274 Problem Chronic obstructive pulmonary disease, unspecified COPD ty pe J44.9 Active 79413296 Problem Diabetic polyneuropathy asso ciated with diabetes mellitus due to underlying condition E08.42 Active 98311090 Problem Erectile dysfunction, unspecified erectile dysfunction typ e N52.9 Active 831411543 Problem Neuropathy G62.9 Active 702753114 Problem Vitamin D deficiency disease E55.9 Active 347 11782 Problem 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 Active 61363 004 Problem Combined hyperlipidemia E78.2 Active 07624816 3 Problem Metabolic disorder, unspecified E88.9 Active 95624978 Problem Arthralgia of shoulder region, right M25.511 Act aisha 459423869 Problem Uncontrolled type 1 diabetes mellitus without complication E10.65 Active 495745768 Problem 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 block 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 Active 594246556 Problem PAD (peripheral artery disease) I73.9 Active 276357931 Problem Benign prostatic hyperplasia with lower urinary tract symptoms N40.1 Active 5315995795411 Problem Vitamin D deficiency E55.9 Active 32927997 Problem Diabetes, type 1.5, uncontrolled, 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 487888021 ALLERGIES No Known Allergies ENCOUNTERS from 1975 to 2020-03-25 Encounter Location Date Provider Diagnosis [address] [address] Mar, Nelida Buddyworth Neuropathy G62.9 IMMUNIZATIONS Vaccine Route Administration Date Status Pneumococcal [...] Education Language: Question Answer Notes Languages spoken: Argentine Hoahaoism: Question Answer Notes Hoahaoism PT STATES NO PREFERE NCE Drug and [...] for 30 Days Active Ergocalciferol 1.25 MG (66690 UT) 1 capsule Orally every oth er [...] Information RESULTS No Results REASON FOR VISIT New Refill Request MEDICAL (GENERAL) HISTORY Type Description Date Medical [...] crisis seen in ED 09/2014 in [facility] [place], [place] c h/o cocaine use Medical History [...] Notes Treatment Notes Treatm ent Clinical Notes Mar, Neuropathy (ICD-10 - G62.9) PLAN OF TREATMENT Medication Medication Name Sig [...] Days Next Appt Details Provider Name:Nelida Marquis, 2020-0 04-30 10:45:00 AM, [address] [place], [address], Insurance Providers Payer Name Payer Address Payer Phone Insured Name Patient Relati onship to Insured Coverage Start Date Coverage End Date [facility] [address] [place] [phone] PINKY BEASLEY self
--- OUTSIDE RECORDS SUMMARY | 2020-04-10 17:25 | CCD ---
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 Active 775290569 Problem Intractable migraine with aura with status migrainosus G43.111 Active 949271085 Problem Depression, unspecified depression type F32.9 Active 80875609 Problem Risky sexual behavior Z72.51 Active 482584188 Problem Muscle tension headache G44.209 Active 58853132 6 Problem DDD (degenerative disc disease), lumbar M51.36 Active 84770069 Problem Hypogonadism in male E29.1 Active 58767519 Problem Migraine aura, persistent, intractable G43.519 A ctive 294800337 Problem Chronic obstructive pulmonary disease, unspecified COPD ty pe J44.9 Active 95898904 Problem Syncope, unspecified syncope type R55 Active 028994473 Problem 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 Active 545994877 Problem Moderate persistent asthma, unspecified whether complicate d J45.40 Active 588143878 Problem 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 Active 319725759 Problem Sleep disorder, unspecified G47.9 Active 3989 8005 Problem Sleep apnea in adult G47.30 Active 80012946 Problem Migraine with aura and without status migrainosu s, not intractable G43.109 Active 2604081 Problem Essential hypertension I10 Active 60928651 Problem NAALILIA (obstructive sleep apnea) G47.33 Active 78 565296 Problem Tobacco use Z72.0 Active 025567674 Problem Diabetic polyneuropathy asso ciated with diabetes mellitus due to underlying condition E08.42 Active 14344220 Problem Erectile dysfunction, unspecified erectile dysfunction typ e N52.9 Active 930834677 Problem LBBB (left bundle branch block) I44.7 Active 72545996 Problem Gastroesophageal reflux disease, esophagitis pre sence not specified K21.9 Active 468161628 Problem Spondylosis without myelopathy or radiculopathy, lumbar region M47.816 Active 92087823 Problem Neuropathy G62.9 Active 609480815 Problem Vitamin D deficiency disease E55.9 Active 347 80115 Problem Diabetes, type 1.5, uncontrolled, 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 819967854 Problem Uncontrolled type 1 diabetes mellitus without complication E10.65 Active 607310167 Problem Combined hyperlipidemia E78.2 Active 03820774 3 Problem Intractable episodic cluster headache G44.011 Ac tive 169821908 Problem Metabolic disorder, unspecified E88.9 Active 79598543 Problem 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 Active 36100 004 Problem Benign prostatic hyperplasia with lower urinary tract symptoms N40.1 Active 2279692383992 Problem PAD (peripheral artery disease) I73.9 Active 568270184 Problem Vitamin D deficiency E55.9 Active 51545397 ALLERGIES No Known Allergies ENCOUNTERS from 1975 to 2020-02-26 Encounter Location Date Provider Diagnosis [address] [address] Apr, Nelida Marquis Type 2 diabetes mellitus with other spec ified complication, unspecified termite treater insulin use status E11.69 IMMUNIZATIONS Vaccine Route [...] Education Language: Question Answer Notes Languages spoken: Armenian Adventism: Question Answer Notes Adventism PT STATES NO PREFERE NCE Drug and [...] 30 day(s) July, Active Ergocalciferol 1.25 MG (44565 UT) 1 capsule Orally every oth er [...] Days Oct, Active PROCEDURES No Information RESULTS Component Value Reference Range HEMOGLOBIN A1c Reviewed date:06/09/2017 18:11:08 Interpretation: Performing Lab:[facility],[address] [place] [address], ,[place] [address] HEMOGLOBIN A1c 8.4 ESTIMATED AVERAGE GLUCOSE 194 [...] hypertensive crisis seen in ED 09/2014 in [facility] [place], [place] c h/o cocaine use Medical History [...] mellitus wit h other specified complication, unspecified termite treater insulin use status (ICD-10 - E11.69) Will reduce Levemir to 43Units, also add Jardiance PLAN OF TREATMENT Medication Medication Name Sig Start Date Stop Date OneTouch Verio - as directed Dx E11.9 AC TID and QHS, prn when not well five times daily and as needed for 30 Days Treatment Notes Assessment Notes Clinical Notes Type 2 diabetes mellitus with other spec ified complication, unspecified custodial insulin use status Will reduce Levemir to 43Uni ts, also add Jardiance Next Appt Details 3-4 Weeks c A1c 1W prior Reason: Provider Name:Nelida Marquis, 2019-03 10:30:00 AM, [address] [place], [address], Provider Name:Nelida Marquis, 04-30 10:45:00 AM, [address] [place], [address], Insurance Providers Payer Name Payer Address Payer Phone Insured Name Patient Relati onship to Insured Coverage Start Date Coverage End Date [facility] [address] [facility] [id number] PINKY BEASLEY self
--- OUTSIDE RECORDS SUMMARY | 2020-04-10 17:25 | CCD | Continuity of Care Document ---
Author Author Margie ROGERS [facility]ac[facility] Organization Unknown Address [address] [place] [address], [address] [place] [address] Phone [phone] Care Team Providers Care Microsoft Dynamics Ax Consultant Name Role Phone ZENY Marquis [phone] Problems Active Problems Provider Date Polyneuropathy due to type 2 diabetes mellitus Diego glasgow DPM Onset: 03/27/2020 Onychomycosis Diego Rogers DPM Onset: 03/27/2020 Plantar fascial fibromatosis Diego Rogers DPM Onset: Social History Type Date Description Comments Sex Unknown ETOH Use Denies alcohol use Tobacco Use Start: Unknown Patient is a current smoker, smo kes every day Tobacco Use Start: Unknown Light tobacco smoker (10 or fewe r cigarettes/day) Allergies, Adverse Reactions, Alerts Description No Known Drug Allergies Medications Active Medications SIG Qnty Indications Ordering Provide r Date B Complex Tablets 1 b y mouth every day 90tabs Diego Rogers DPM 03/27/2020 Tresiba Flextouch Unknown 000 Metoclopramide HCL Unknown Hydroxyzine HCL Unknown 0 Divalproex Sodium Unknown 000 Hydralazine HCL Unknown 0 Acetaminophen Unknown Metformin HCL Unknown Aspirin 81 Unknown Citalopram Hydrobromide Unknown 0 Isosorbide Mononitrate ER Unknown Spironolactone Unknown Montelukast Sodium 10mg Tablets ZENY Marquis, Nelida Atorvastatin Calcium 40mg Tablets TK 1 T PO QHS Unknown Irbesartan 300mg Tablets Take One Tablet By Mouth Every Evening Unknown 0 Chlorthalidone 25mg Tablets TK 1 T PO qam WF Unknown Trelegy Ellipta 100- 62.5-25mcg/Inh Aerosol Inl 1 puff PO D Unknown Invokana 100mg Tablets ZENY Marquis, Nelida Amlodipine Besylate 5mg Tablets ZENY Marquis, Nelida Gabapentin 600mg Tablets Take One Tablet By Mouth Three Times A Day Unknown Atenolol 100mg Tablets ZENY Marquis, Nelida Tizanidine HCL 4mg Tablets Take One Tablet By Mouth Three Times A Day as Needed Unknown Omeprazole 40mg Capsules DR Take One Capsule By Mouth Daily Unknown 0 Basaglar Kwikpen 100 Unit/ML Solution Pen-Inject Inject 60 Units Under The Skin Before Bedtime Unknown Humalog Kwikpen 100U nit/ML Solution Pen-Inject Inject Per Sliding Scale Before Meals And AT Bedtime. MDD 33 Uni ts Unknown Immunizations Description No Information Available Vital Signs Date Vital Result Comment 03/27/2020 10:12am Height 72 inches 6'0" Weight 175.00 lb BP Systolic 150 mmHg BP Diastolic 100 mmHg Heart Rate 78 /min BMI (Body Mass Index) 23.7 kg/m2 Results Description No Information Available Procedures Description No Information Available Medical Devices Description No Information Available Encounters Type Date Location Provider Dx Diagnosis Office Visit 03/27/2020 10:15a [facility] Diego Rogers DPM E11.42 Type 2 diabetes mellitus with diabetic polyneuropathy B35.1 Tinea unguium M72.2 Plantar fascial fibromatosis M21.6x9 Other acquired deformities o f unspecified foot Assessments Date Code Description Provider 03/27/2020 E11.42 Type 2 diabetes mellitus with di abetic polyneuropathy Diego Rogers DPM 03/27/2020 B35.1 Tinea unguium Diego Rogers DPM 03/27/2020 M72.2 Plantar fascial fibromatosis Dipika Rogers DPM 03/27/2020 M21.6x9 Other acquired deformities of un specified foot Diego Rogers DPM Plan of Treatment Future Appointment(s):* 05/01/2020 10:30 am - Diego Rogers DPM at [facility] Functional Status Description No Information Available Mental Status Description No Information Available Referrals Description No Information Available
--- OUTSIDE RECORDS SUMMARY | 2020-04-10 17:25 | CCD ---
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 Active 198804070 Problem Depression, unspecified depression type F32.9 Active 28681577 Problem Bilateral headaches R51 Active 953917457 Problem Muscle tension headache G44.209 Active 77846530 6 Problem Intractable migraine with aura with status migrainosus G43.111 Active 769061367 Problem Intractable episodic cluster headache G44.011 Ac tive 599025667 Problem Risky sexual behavior Z72.51 Active 615045235 Problem Spondylosis without myelopathy or radiculopathy, lumbar region M47.816 Active 10268058 Problem 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 Active 178079419 Problem DDD (degenerative disc disease), lumbar M51.36 Active 13598844 Problem Hypogonadism in male E29.1 Active 62330387 Problem Abnormal reaction to tuberculin test R76.11 Act aisha 83524532 Problem Syncope, unspecified syncope type R55 Active 840787237 Problem Sleep apnea in adult G47.30 Active 71466473 Problem Moderate persistent asthma, unspecified whether complicate d J45.40 Active 135584807 Problem ANALILIA (obstructive sleep apnea) G47.33 Active 78 154159 Problem Tobacco use Z72.0 Active 189983420 Problem Sleep disorder, unspecified G47.9 Active 3989 8005 Problem LBBB (left bundle branch block) I44.7 Active 48084188 Problem Gastroesophageal reflux disease, esophagitis pre sence not specified K21.9 Active 862800081 Problem Migraine with aura and without status migrainosu s, not intractable G43.109 Active 7230944 Problem Essential hypertension I10 Active 71897819 Problem Migraine aura, persistent, intractable G43.519 A ctive 477040254 Problem Chronic obstructive pulmonary disease, unspecified COPD ty pe J44.9 Active 48423511 Problem Diabetic polyneuropathy asso ciated with diabetes mellitus due to underlying condition E08.42 Active 61629164 Problem Erectile dysfunction, unspecified erectile dysfunction typ e N52.9 Active 932822687 Problem Neuropathy G62.9 Active 264194655 Problem Vitamin D deficiency disease E55.9 Active 347 72635 Problem 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 Active 31661 004 Problem Combined hyperlipidemia E78.2 Active 65586788 3 Problem Metabolic disorder, unspecified E88.9 Active 84984727 Problem Arthralgia of shoulder region, right M25.511 Act aisha 788547809 Problem Uncontrolled type 1 diabetes mellitus without complication E10.65 Active 125531215 Problem meterman 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.4 Active 240285092 Problem PAD (peripheral artery disease) I73.9 Active 156134451 Problem Benign prostatic hyperplasia with lower urinary tract symptoms N40.1 Active 5799549128738 Problem Vitamin D deficiency E55.9 Active 29371379 Problem Diabetes, type 1.5, uncontrolled, 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 762336909 ALLERGIES No Known Allergies ENCOUNTERS from 1975 to 2020-03-12 Encounter Location Date Provider Diagnosis [address] [address] Feb, Nelida Swatsworth Neuropathy G62.9 ; DDD (degenerative dis c disease), lumbar M51.36 ; Spondylosis without myelopathy or radiculopathy, lumbar region M47.816 and Arthralgia of shoulder region, right M25.511 IMMUNIZATIONS Vaccine Route Administration Date Status Pneumococcal [...] Education Language: Question Answer Notes Languages spoken: Romansh Episcopalian: Question Answer Notes Episcopalian PT STATES NO PREFERE NCE Drug and [...] FOR REFERRAL No Information VITAL SIGNS Weight 175 lbs Feb, Height 70.5 in Feb, BMI 24.75 kg/m2 Feb, Heart Rate 102 /min Feb, Respiratory Rate 18 /min Feb, Temperature 96.5 degrees Fahrenheit Feb, Oximetry 98 Feb, Blood pressure systolic 138 mm Hg Feb, Blood pressure diastolic 80 mm Hg Feb, MEDICATIONS Medication SIG (Take, Route, Frequency, Duration) [...] for 30 Days Active Ergocalciferol 1.25 MG (53054 UT) 1 capsule Orally every oth er [...] No Information RESULTS Component Value Reference Range PLZ SHOULDER COMPLETE Reviewed date:02/28/2020 17:04:47 Interpretation: Performing Lab:[facility],[address]], ,[place] [address] REASON FOR VISIT referral to bankruptcy paralegal MEDICAL (GENERAL) HISTORY Type Description Date Medical [...] hypertensive crisis seen in ED 09/2014 in [facility] [place], [place] c h/o cocaine use Medical History [...] Notes Treatment Notes Treatm ent Clinical Notes Feb, Neuropathy (ICD-10 - G62.9) Feb, DDD (degenerative disc disease), lumbar (ICD-10 - M51.36) Feb, Spondylosis without myelopat hy or radiculopathy, lumbar region (ICD-10 - M47.816) Feb, Arthralgia of shoulder region, right (ICD-10 - M 25.511) PLAN OF TREATMENT Medication Medication Name Sig [...] times daily for 30 day(s ) Feb, Treatment Notes Test Name Order Date X ray : Spines, lumbar complete 2020-03-12 Next Appt Details 2-3 Weeks f/u back pain Reason: Provider Name:Nelida Marquis 03-20 11:15:00 AM, [address] [place], [address], Provider Name:Nelida Marquis 04-30 10:45:00 AM, [address] [place], [address], Insurance Providers Payer Name Payer Address Payer Phone Insured Name Patient Relati onship to Insured Coverage Start Date Coverage End Date [facility] [address] [facility] [phone] PINKY BEASLEY self
--- OUTSIDE RECORDS SUMMARY | 2020-04-10 17:25 | CCD ---
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 Active 311269387 Problem Depression, unspecified depression type F32.9 Active 40287606 Problem Bilateral headaches R51 Active 068249684 Problem Muscle tension headache G44.209 Active 56113112 6 Problem Intractable migraine with aura with status migrainosus G43.111 Active 916221926 Problem Intractable episodic cluster headache G44.011 Ac tive 482616468 Problem Risky sexual behavior Z72.51 Active 771615039 Problem Spondylosis without myelopathy or radiculopathy, lumbar region M47.816 Active 87972287 Problem 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 Active 268506401 Problem DDD (degenerative disc disease), lumbar M51.36 Active 11675757 Problem Hypogonadism in male E29.1 Active 89740641 Problem Abnormal reaction to tuberculin test R76.11 Act aisha 79121787 Problem Syncope, unspecified syncope type R55 Active 098060967 Problem Sleep apnea in adult G47.30 Active 03230594 Problem Moderate persistent asthma, unspecified whether complicate d J45.40 Active 003983368 Problem ANALILIA (obstructive sleep apnea) G47.33 Active 78 442519 Problem Tobacco use Z72.0 Active 177805973 Problem Sleep disorder, unspecified G47.9 Active 3989 8005 Problem LBBB (left bundle branch block) I44.7 Active 84479926 Problem Gastroesophageal reflux disease, esophagitis pre sence not specified K21.9 Active 281278836 Problem Migraine with aura and without status migrainosu s, not intractable G43.109 Active 7286814 Problem Essential hypertension I10 Active 49986637 Problem Migraine aura, persistent, intractable G43.519 A ctive 854478806 Problem Chronic obstructive pulmonary disease, unspecified COPD ty pe J44.9 Active 83924367 Problem Diabetic polyneuropathy asso ciated with diabetes mellitus due to underlying condition E08.42 Active 90816719 Problem Erectile dysfunction, unspecified erectile dysfunction typ e N52.9 Active 084938423 Problem Neuropathy G62.9 Active 361827372 Problem Vitamin D deficiency disease E55.9 Active 347 29341 Problem 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 Active 99932 004 Problem Combined hyperlipidemia E78.2 Active 89509860 3 Problem Metabolic disorder, unspecified E88.9 Active 82454292 Problem Arthralgia of shoulder region, right M25.511 Act aisha 619398837 Problem Uncontrolled type 1 diabetes mellitus without complication E10.65 Active 355504290 Problem long term care administrator 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.4 Active 640682376 Problem PAD (peripheral artery disease) I73.9 Active 404729593 Problem Benign prostatic hyperplasia with lower urinary tract symptoms N40.1 Active 7773388338327 Problem Vitamin D deficiency E55.9 Active 31985602 Problem Diabetes, type 1.5, uncontrolled, 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 998657022 ALLERGIES No Known Allergies ENCOUNTERS from 1975 to 2020-03-05 Encounter Location Date Provider Diagnosis [address] [address] Feb, Nelida Buddyworth Arthralgia of shoulder region, right M25 .511 and Acute low back pain without sciatica, unspecified back pain laterality M54.5 IMMUNIZATIONS Vaccine Route Administration Date Status Pneumococcal [...] Education Language: Question Answer Notes Languages spoken: French Latter-Day: Question Answer Notes Latter-Day PT STATES NO PREFERE NCE Drug and [...] tablet Orally qpm for 30 Days Active Magalys Sandoval - as directed Dx E11.9 AC TID [...] for 30 Days Active Ergocalciferol 1.25 MG (61986 UT) 1 capsule Orally every oth er [...] Information RESULTS No Results REASON FOR VISIT Call back MEDICAL (GENERAL) HISTORY Type Description Date Medical [...] crisis seen in ED 09/2014 in [facility] [place], [place] c h/o cocaine use Medical History [...] Treatment Notes Treatm ent Clinical Notes Feb, Arthralgia of shoulder region, right (ICD-10 - M 25.511) Feb, Acute low back pain without sciatica, unspecified back pain laterality (ICD-10 - M54.5) PLAN OF TREATMENT Medication Medication Name Sig [...] ) Feb, Next Appt Details Provider Name:Nelida Marquis, 03-20 11:15:00 AM, [address] [place] [address], [address], Provider Name:Nelida Marquis, 04-30 10:45:00 AM, [address] [place] [address], [address], Insurance Providers Payer Name Payer Address Payer Phone Insured Name Patient Relati onship to Insured Coverage Start Date Coverage End Date [facility] [address] [facility] [phone] PINKY BEASLEY
--- OUTSIDE RECORDS SUMMARY | 2020-04-10 17:25 | CCD ---
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 Active 536882359 Problem Depression, unspecified depression type F32.9 Active 72629127 Problem Bilateral headaches R51 Active 565780823 Problem Muscle tension headache G44.209 Active 81204999 6 Problem Intractable migraine with aura with status migrainosus G43.111 Active 524327078 Problem Intractable episodic cluster headache G44.011 Ac tive 677154603 Problem Risky sexual behavior Z72.51 Active 810084068 Problem Spondylosis without myelopathy or radiculopathy, lumbar region M47.816 Active 40816438 Problem 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 Active 264607911 Problem DDD (degenerative disc disease), lumbar M51.36 Active 12330697 Problem Hypogonadism in male E29.1 Active 32666327 Problem Abnormal reaction to tuberculin test R76.11 Act aisha 34519346 Problem Syncope, unspecified syncope type R55 Active 514897869 Problem Sleep apnea in adult G47.30 Active 62291116 Problem Moderate persistent asthma, unspecified whether complicate d J45.40 Active 504712541 Problem ANALILIA (obstructive sleep apnea) G47.33 Active 78 848707 Problem Tobacco use Z72.0 Active 557854394 Problem Sleep disorder, unspecified G47.9 Active 3989 8005 Problem LBBB (left bundle branch block) I44.7 Active 08569705 Problem Gastroesophageal reflux disease, esophagitis pre sence not specified K21.9 Active 296954214 Problem Migraine with aura and without status migrainosu s, not intractable G43.109 Active 5977973 Problem Essential hypertension I10 Active 46998753 Problem Migraine aura, persistent, intractable G43.519 A ctive 966991858 Problem Chronic obstructive pulmonary disease, unspecified COPD ty pe J44.9 Active 13487879 Problem Diabetic polyneuropathy asso ciated with diabetes mellitus due to underlying condition E08.42 Active 32597668 Problem Erectile dysfunction, unspecified erectile dysfunction typ e N52.9 Active 656727360 Problem Neuropathy G62.9 Active 809420392 Problem Vitamin D deficiency disease E55.9 Active 347 00662 Problem 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 Active 93725 004 Problem Combined hyperlipidemia E78.2 Active 27532387 3 Problem Metabolic disorder, unspecified E88.9 Active 63881755 Problem Arthralgia of shoulder region, right M25.511 Act aisha 301277285 Problem Uncontrolled type 1 diabetes mellitus without complication E10.65 Active 070907373 Problem oil heaterman 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.4 Active 843713679 Problem PAD (peripheral artery disease) I73.9 Active 751136241 Problem Benign prostatic hyperplasia with lower urinary tract symptoms N40.1 Active 7736402715830 Problem Vitamin D deficiency E55.9 Active 83995319 Problem Diabetes, type 1.5, uncontrolled, 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 941612723 ALLERGIES No Known Allergies ENCOUNTERS from 1975 to 2020-03-05 Encounter Location Date Provider Diagnosis [address] [address] Apr, Nelida Marquis Type 2 diabetes mellitus with other spec ified complication, unspecified group home insulin use status E11.69 IMMUNIZATIONS Vaccine Route [...] Education Language: Question Answer Notes Languages spoken: Malagasy Yarsanism: Question Answer Notes Yarsanism PT STATES NO PREFERE NCE Drug and [...] tablet Orally qpm for 30 Days Active KathleenTouch Veralex - as directed Dx E11.9 AC TID [...] for 30 Days Active Ergocalciferol 1.25 MG (43877 UT) 1 capsule Orally every oth er [...] HEMOGLOBIN A1c Reviewed date:06/09/2017 18:11:08 Interpretation: Performing Lab:[facility],[address] [place] [address], ,[place] [address] HEMOGLOBIN A1c 8.4 ESTIMATED AVERAGE GLUCOSE 194 [...] hypertensive crisis seen in ED 09/2014 in [facility] [place], [place] c h/o cocaine use Medical History [...] mellitus wit h other specified complication, unspecified director long term care insulin use status (ICD-10 - E11.69) Will [...] for 30 day(s ) Feb, Treatment Notes Assessment Notes Clinical Notes Type 2 diabetes mellitus with other spec ified complication, unspecified group home insulin use status Will reduce Levemir to 43Uni ts, also add Jardiance Next Appt Details 3-4 Weeks c A1c 1W prior Reason: Provider Name:Nelida Marquis, 1- 11:15:00 AM, [address] [place] [address], [phone], Provider Name:Nelida Marquis 04-30 10:45:00 AM, [address] [place] [address], [phone], Insurance Providers Payer Name Payer Address Payer Phone Insured Name Patient Relati onship to Insured Coverage Start Date Coverage End Date [facility] [address] [facility] [id number] JOSEPH HERZOG,PINKY self
--- OUTSIDE RECORDS SUMMARY | 2020-04-10 17:25 | CCD | Continuity of Care Document ---
Author Author Margie ROGERS DPPlacido Organization Unknown Address [address] [place] [address], [address] [place] [address] Phone [phone] Care Team Providers Care Dry Dip Worker Name Role Phone ZENY Marquis [phone] Problems Active Problems Provider Date Polyneuropathy due [...] Provider Dx Diagnosis Office Visit 03/27/2020 10:15a [facility] Diego Rogers DPM E11.42 Type 2 [...] 10:30 am - Diego Rogers DPM at [facility] Functional Status Description No Information Available Mental Status Description No Information Available Referrals Description No Information Available
--- OUTSIDE RECORDS SUMMARY | 2020-04-10 17:25 | CCD | Continuity of Care Document ---
Author Author Margie TAMEZ M.D. Organization Unknown Address [address] [place] [address] Phone [phone] Care Team Providers Care Heating Element Builder Name Role Phone Nelida Marquis RPA AUTM [phone] Problems Active Problems Provider Date Chronic tension-type [...] lb BMI (Body Mass Index) 25.8 kg/m2 [place] Body Weight 172 lb Results Description No Information Available Procedures Date Code Description Status 01/31/2020 60610 [place] ervated By Facial, Trigeminal, Cerv And Acces Completed 10/29/2019 06448 [place] ervated By Facial, Trigeminal, Cerv And Acces Completed Medical Devices Description No Information Available Encounters Description No Information Available Assessments Date Code Description Provider 04/01/2020 G43.719 [...] Description No Information Available Referrals Refer to Reason for Referral Status Appt Myrna Potter M.D. Created [facility] [address] [place] [address] [phone]
--- OUTSIDE RECORDS SUMMARY | 2020-04-10 17:26 | CCD | Continuity of Care Document ---
Author Author Margie TAMEZ M.D. Organization Unknown Address [address] [place] [address] Phone [phone] Care Team Providers Care Agronomy Teacher Name Role Phone Nelida Marquis RPA AUTM [phone] Problems Active Problems Provider Date Chronic tension-type [...] Divalproex Sodium ER 500mg Tablets ER 24HR 1 po qhs for 1 week, then 2 po qhs.. 60tabs Gracie Tamez M.D. 11/24/2018 Botox 200Unit Solution Rec [...] lb BMI (Body Mass Index) 25.8 kg/m2 [place] Body Weight 172 lb Results Description No Information Available Procedures Date Code Description Status 01/31/2020 89426 [place] ervated By Facial, Trigeminal, Cerv And Acces Completed 10/29/2019 49402 [place] ervated By Facial, Trigeminal, Cerv And Acces Completed Medical Devices Description No Information Available Encounters Description No Information Available Assessments Date Code Description Provider 01/31/2020 G43.719 Chronic migraine wit hout aura, intractable, without status migrainosus Myrna Tamez M.D. 10/29/2019 G43.719 Chronic migraine wit hout aura, intractable, without status migrainosus Myrna Tamez M.D. Plan of Treatment Future Appointment(s):* 04/01/2020 2:45 pm - Myrna Tamez M.D. at Main office - [place] Functional Status Description No Information Available Mental Status Description No Information Available Referrals Refer to Dr Reason for Referral Status Appt Date Myrna Tamez M.D. Created [facility] [address] [place] [address] [phone]
--- OUTSIDE RECORDS SUMMARY | 2020-04-10 17:26 | CCD ---
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 Active 689342557 Problem Intractable migraine with aura with status migrainosus G43.111 Active 864732381 Problem Depression, unspecified depression type F32.9 Active 09049140 Problem Risky sexual behavior Z72.51 Active 531788292 Problem Muscle tension headache G44.209 Active 30466012 6 Problem DDD (degenerative disc disease), lumbar M51.36 Active 55196006 Problem Hypogonadism in male E29.1 Active 81741154 Problem Migraine aura, persistent, intractable G43.519 A ctive 592885867 Problem Chronic obstructive pulmonary disease, unspecified COPD ty pe J44.9 Active 31591841 Problem Syncope, unspecified syncope type R55 Active 105119749 Problem 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 Active 045113581 Problem Moderate persistent asthma, unspecified whether complicate d J45.40 Active 993898961 Problem 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 Active 031892583 Problem Sleep disorder, unspecified G47.9 Active 3989 8005 Problem Sleep apnea in adult G47.30 Active 97307580 Problem Migraine with aura and without status migrainosu s, not intractable G43.109 Active 9077746 Problem Essential hypertension I10 Active 63191947 Problem ANALILIA (obstructive sleep apnea) G47.33 Active 78 612599 Problem Tobacco use Z72.0 Active 121119882 Problem Diabetic polyneuropathy asso ciated with diabetes mellitus due to underlying condition E08.42 Active 84257845 Problem Erectile dysfunction, unspecified erectile dysfunction typ e N52.9 Active 460529889 Problem LBBB (left bundle branch block) I44.7 Active 00728607 Problem Gastroesophageal reflux disease, esophagitis pre sence not specified K21.9 Active 341196931 Problem Spondylosis without myelopathy or radiculopathy, lumbar region M47.816 Active 84280681 Problem Neuropathy G62.9 Active 440790518 Problem Vitamin D deficiency disease E55.9 Active 347 11625 Problem Diabetes, type 1.5, uncontrolled, 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 090963150 Problem Uncontrolled type 1 diabetes mellitus without complication E10.65 Active 863785782 Problem Combined hyperlipidemia E78.2 Active 33842942 3 Problem Intractable episodic cluster headache G44.011 Ac tive 208629448 Problem Metabolic disorder, unspecified E88.9 Active 07147156 Problem 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 Active 45608 004 Problem Benign prostatic hyperplasia with lower urinary tract symptoms N40.1 Active 4279674361046 Problem PAD (peripheral artery disease) I73.9 Active 648377254 Problem Vitamin D deficiency E55.9 Active 70139192 ALLERGIES No Known Allergies ENCOUNTERS from 1976 to 2020-02-13 Encounter Location Date Provider Diagnosis [address] [address] Apr, Nelida Marquis Type 2 diabetes mellitus [...] Education Language: Question Answer Notes Languages spoken: Indonesian Spiritism: Question Answer Notes Spiritism PT STATES NO PREFERE NCE Drug and [...] Notes Start Da te End Date Status Depakote ER 500 MG 2 tablets Orally before bedtime for 30 day(s) Not-Taking Celexa 40 MG 1 tab Orally Once a day for 30 day(s) Active Aspirin 81 MG 1 tablet Orally Once a day for 30 day(s) Dec, Active Proctofoam HC 1-1 % 1 application as needed Rect al Four times a day for 30 day(s) Aug, Not-Taking Ventolin HFA 108 (90 Base) MCG/ACT 1 puffs as needed I nhalation [place] every 6 hrs for 30 day(s) Active Basaglar KwikPen 100 UNIT/ML 60 units Subcutaneous before bedtime for 50 Active Invokana 100 MG 1 tablet before first meal Orally Once a day for 30 Days Jun, Active HydrOXYzine HCl 25 mg 1 tablet as needed for pruri tus Orally every 6 hrs for 30 day(s) July, Active Ergocalciferol 1.25 MG (02937 UT) 1 capsule Orally every oth er week for 30 Days Jun, Active Anusol-HC 2.5 % 1 application to affected area Rectal Tw ice a day for 30 day(s) Mar, Not-Taking TraZODone HCl 50 MG 1 tablet at bedtime as neede d Orally Once a day for 30 day(s) Sep, Active Chlorthalidone 25 MG TAKE ONE TABLET BY MOUTH EVERY MORNING WITH FOOD for 30 Active OneTouch Verio w/Device as directed _ qid for 30 days Active APAP 500 MG 1 capsule as needed Orally every 6 hrs for 30 day(s) Active Humalog Pen 100 UNIT/ML MDD :33units/Day Sliding sca le/meal Subcutaneous before meals and at bedtime for 30 Days Active Trelegy Ellipta 100-62.5-25 [...] day for 30 Days Active OneTouch Verio - as directed Dx E11.9 AC TID and QHS, prn when not well five times daily and as needed for 30 Days Active Glucose 4 GM take one tablet Orally as needed for low blood sugars Active Flomax 0.4 MG 1 capsule Orally Once a day for 30 day(s) Not-Taking Viagra 25 MG 1 tablet as needed Orally Once a day for 30 day(s) Active Irbesartan 300 MG 1 tablet Orally qpm for 30 Days Active HydrALAZINE HCl 10 MG 1 tablet with food Orally three times daily for 30 day(s) Active BD Pen Needle Mini U/F 31G X 5 MM as directed subcutan eously 5 times / day as needed for 30 Days Active Gabapentin 400 MG 1 capsule Orally three times daily for 30 day(s) Active Metformin HCl 500 MG 1 tab Orally AC BID for 30 Days Not-Taking Omeprazole 40 MG 1 capsule Orally [...] HEMOGLOBIN A1c Reviewed date:06/09/2017 18:11:08 Interpretation: Performing Lab:[facility],[address] [place] [address], ,[place] [address] HEMOGLOBIN A1c 8.4 ESTIMATED AVERAGE GLUCOSE 194 [...] crisis seen in ED 09/2014 in [facility] [place], [place] c h/o cocaine use Medical History [...] 43Units, also add Jardiance PLAN OF TREATMENT Treatment Notes Assessment Notes Clinical Notes Type 2 diabetes mellitus with other spec ified complication, unspecified intermediate insulin use status Will reduce Levemir to 43Uni ts, also add Jardiance Next Appt Details 3-4 Weeks c A1c 1W prior Reason: Provider Name:Nelida Marquis, 2019-03 10:30:00 AM, [address] [place] [address], [phone], Provider Name:Nelida Marquis, 04-28 10:45:00 AM, [address] [place] [address], [phone], Insurance Providers Payer Name Payer Address Payer Phone Insured Name Patient Relati onship to Insured Coverage Start Date Coverage End Date [facility] [address] [facility] [id number] PINKY BEASLEY self
--- OUTSIDE RECORDS SUMMARY | 2020-04-10 17:26 | CCD | Continuity of Care Document ---
Author Author Margie HICKS M.D. Organization Unknown Address [address] [place] [address] Phone [phone] Care Team Providers Care Nuclear Weapons Custodian Name Role Phone Nelida Marquis AUTM [phone] AUTM Unavailable Problems Description No Active Problems Social History Type Date Description Comments Sex Unknown ETOH Use Denies alcohol use Tobacco Use Start: 03/14/97 Patient is a current smoker, smo kes every day 1/2 PPD, currently at 4 cigs a day 08/23/2019 Smoking Status Reviewed: 02/14/20 Patient is a current smoker, smokes every day 1/2 PPD, currently at 4 cigs a day 08/23/2019 Allergies, Adverse Reactions, Alerts Description No Known Drug Allergies Medications Active Medications SIG Qnty Indications Ordering Provide r Date Suprep Bowel Prep Kit 17.5-3.13-1.6GM/177ML Solution as directed - see dr meadows instructions 1Kit K62.5 Can Montgomery MD 11/07/2019 Milk Of Magnesia 7.75% Suspension take 45 milliliters by mouth about 1-2 days before colonoscopy prep 360ml K62.5 Can Montgomery MD 11/07/2019 Arnuity Ellipta 100mcg/Act Aerosol 1 puff inhaled every day 30units J45.40 Vivienne Hicks M.D. 0 BIPAP 12/8CM LCW Vivienne Hicks M.D. 07/13 Albuterol Sulfate (2 .5mg/3ML) 0.083% Nebulizer 1 four times a day as needed 1080ml J45.40 Aurora Hicks M.D. 05/17/2018 Basaglar Kwikpen 100 Unit/ML Solution Pen-Inject Unknown Vitamin D3 1.25mg (88990 Ut) Capsu les every week Unknown Tamsulosin HCL 0.4mg Capsules Unknown Pantoprazole Sodium 40mg Tablets D R twice daily -- one tablet in morning 1/2 hour before breakfast and one tablet prior to bedtime. total course 3 months. Unknown Amlodipine Besylate 10mg Tablets daily Unknown Invokana 100mg Tablets 1 by mouth every day Unknown Gabapentin 100mg Capsules 1 by mouth three times a day 60caps Unknown Hydralazine HCL 10mg Tablets 1 by mouth three times a day Unknown Divalproex Sodium ER 500mg Tablets ER 24HR 2 tab by mouth every night at bedtime Unk nown Trelegy Ellipta 100- 62.5-25mcg/Inh Aerosol one inhalation daily 60units Vivienne Hicks M.D. Irbesartan 300mg Tablets tab by mouth every day Unknown Humalog Kwikpen three times a day Unknown Trazodone HCL 50mg Tablets 1 by mouth every night Unknown Montelukast Sodium 10mg Tablets 1 by mouth every night 30tabs Unknown Atorvastatin Calcium 40mg Tablets 1 by mouth every night 30tabs Unknown Atenolol 100mg Tablets 1 by mouth every morning Unknown Aspirin Adult Low Dose 81mg Tablet s DR 1 by mouth every morning Unknown 0 Citalopram Hydrobromide 40mg Table ts 1 by mouth every morning 30tabs Unknown Chlorthalidone 25mg Tablets 1 by mouth every morning 30tabs Unknown History Medications Chantix Starting Month Juan Miguel 0.5mg X 11 & 1 mg X 42 Tablets 0.5mg once a day for first 3 days, then 0.5mg twice a day for days 4-7. after that 1mg twice a day 1tabs G47.33 Teri Hicks M.D. 08/23/2019 - 10/07/2019 Immunizations Description No Information Available Vital Signs Date Vital Result Comment 02/14/2020 2:49pm BP Systolic 144 mmHg BP Diastolic 88 mmHg Heart Rate 76 /min O2 % BldC Oximetry 98 % Body Temperature 97.8 F Height 72 inches 6'0" Weight 175.38 lb BMI (Body Mass Index) 23.8 kg/m2 [place] Body Weight 178 lb Weight 79.550 kg BSA (Body Surface Area) 2.01 m2 11/07/2019 11:27am BP Systolic 191 mmHg BP Diastolic 124 mmHg Height 72 inches 6'0" Weight 175.00 lb BMI (Body Mass Index) 23.7 kg/m2 [place] Body Weight 178 lb Weight 79.380 kg BSA (Body Surface Area) 2.01 m2 Results Test Acquired Date Facility Test Result H/L Range Note FVL/[place] 02/14/2020 [facility] PDFReport SEE IMAGE FVC-Pred 4.63 L FVC-Pre 3.63 L FVC-%Pred-Pre 78 L FVC-LLN 3.63 L Fev1-Pred 3.76 L Fev1-Pre 2.36 L Fev1-%Pred-Pre 62 L Fev1-LLN 2.88 L Fev6-Pred 4.53 L Fev6-Pre 3.63 L Fev6-%Pred-Pre 80 L Fev6-LLN 3.55 L Ywl6gej-Jhnx 81 % Cyi8cfb-Zjb 65 % Vbc3bta-%Pred-Pre 79 % Pjn5lrc-TFM 71 % Vsu3jfx-Mecw 98 % Xnp3jee-Uqm 100 % Zmr2muz-%Pred-Pre 102 % FEFMax-Pred 9.61 L/E/sec FEFMax-Pre 3.94 L/E/sec FEFMax-%Pred-Pre 41 L/E/sec FEFMax-LLN 6.80 L/E/sec Ipq0115-Yjig 3.82 L/E/sec Rzb9159-Tfp 1.48 L/E/sec Oub4452-%Pred-Pre 38 L/E/sec Nzo7214-DNO 1.93 L/E/sec ExpTime-Pre 5.49 sec Wif2myx2-Wzij 83 % Mwo7xyv0-Aej 65 % Ipo0tbm4-%Pred-Pre 78 % Pwl5tug9-KZO 73 % FVL/Jacob 08/23/2019 [facility] PDFReport SEE IMAGE FVC-Pred 4.63 L FVC-Pre 3.54 L FVC-%Pred-Pre 76 L FVC-LLN 3.63 L Fev1-Pred 3.76 L Fev1-Pre 2.36 L Fev1-%Pred-Pre 62 L Fev1-LLN 2.88 L Fev6-Pred 4.53 L Fev6-Pre 3.54 L Fev6-%Pred-Pre 78 L Fev6-LLN 3.55 L Kys3fxh-Spws 81 % Umb2scl-Jcd 67 % Onb7kkq-%Pred-Pre 81 % Kxf3fis-RJM 71 % Ehf4xzn-Gmad 98 % Vmh8lft-Rol 100 % Ahe9qga-%Pred-Pre 102 % FEFMax-Pred 9.61 L/E/sec FEFMax-Pre 4.13 L/E/sec FEFMax-%Pred-Pre 42 L/E/sec FEFMax-LLN 6.80 L/E/sec Wvm2984-Xbpl 3.82 L/E/sec Zxh5953-Urt 1.48 L/E/sec Lsv2877-%Pred-Pre 38 L/E/sec Zek8462-YDA 1.93 L/E/sec ExpTime-Pre 5.99 sec Rfl4zdd3-Pahr 83 % Cyi2jdy1-Mbq 67 % Nnr9drs8-%Pred-Pre 79 % Gmm1mqu8-PEZ 73 % Procedures Date Code Description Status 10/15/2019 10983 Diffusing Capacity Completed 10/15/2019 53365 Plethysmography Determination Pam ng Volumes & Per Airway Resist Completed 10/15/2019 86469 Maximum Breathing Capacity, Maxi mal Voluntary Ventilation Completed 10/15/2019 45862 Spirometry Completed 08/23/2019 29873 Spirometry Completed Medical Devices Description No Information Available Encounters Type Date Location Provider Dx Diagnosis Office Visit 11/07/2019 11:30a [facility] Can Montgomery MD K62.5 Hemorrhage of anus and rectum R19.7 Diarrhea, unspecified R93.3 Abnormal findings on dx imag ing of prt digestive tract Office Visit 10/15/2019 3:30p [facility] Pulmonary/Thoracic Vivienne Bonner M.D. J44.9 Chronic obstructive pulmonar y disease, unspecified G47.33 Obstructive sleep apnea (piyush lt) (pediatric) J45.40 Moderate persistent asthma, uncomplicated F17.218 Nicotine dependence, cigaret june, w oth disorders R07.9 Chest pain, unspecified Office Visit 08/23/2019 8:30a [facility] Pulmonary/Thoracic Vivienne Bonner M.D. G47.33 Obstructive sleep apnea (piyush lt) (pediatric) J44.9 Chronic obstructive pulmonar y disease, unspecified J45.40 Moderate persistent asthma, uncomplicated F17.218 Nicotine dependence, cigaret june, w oth disorders Assessments Date Code Description Provider 11/07/2019 K62.5 Hemorrhage of anus and rectum Ricco Montgomery MD 11/07/2019 R19.7 Diarrhea, unspecified Can jessica MD 11/07/2019 R93.3 Abnormal findings on diagnostic imaging of other parts of digestive tract Can Montgomery MD 10/15/2019 J44.9 Chronic obstructive pulmonary di sease, unspecified Vivienne Hicks M.D. 10/15/2019 J44.9 Chronic obstructive pulmonary di sease, unspecified Pulmonary Lab 10/15/2019 G47.33 Obstructive sleep apnea (adult) (pediatric) Vivienne Hicks M.D. 10/15/2019 J45.40 Moderate persistent asthma, unco mplicated Vivienne Hicks M.D. 10/15/2019 F17.218 Nicotine dependence, cigarettes, with other nicotine-induced disorders Vivienne Hicks M.D. 10/15/2019 R07.9 Chest pain, unspecified Vivienne Hicks M.D. 08/23/2019 G47.33 Obstructive sleep apnea (adult) (pediatric) Vivienne Hicks M.D. 08/23/2019 J44.9 Chronic obstructive pulmonary di sease, unspecified Vivienne Hicks M.D. 08/23/2019 J45.40 Moderate persistent asthma, unco mplicated Vivienne Hicks M.D. 08/23/2019 F17.218 Nicotine dependence, cigarettes, with other nicotine-induced disorders Vivienne Hicks M.D. Plan of Treatment 11/07/2019 - Can Montgomery MD* K62.5 Hemorrhage of anus and rectum * R19.7 Diarrhea, unspecified * R93.3 Abnormal findings on diagnostic imaging of other parts of digestive tract * * New Medication:* Suprep Bowel Prep Kit 17.5-3.13-1.6 GM/177ML * Milk Of Magnesia 7.75 % * New Orders:* Colonoscopy, Ordered: 11/07/19 * Comments:* baseline has 2-4 soft stools a day for many years/as long as he can remember. He has occasional bouts of severe rectal bleeding, that are self limited. Functional Status Functional Condition Comment Date Status Independent with all ADL's Activ e Independent with all IADL's Acti ve Mental Status Mental Condition Comment Date Status None Active Can understand information Activ e Referrals Refer to Reason for Referral Status Appt Date Radha Bliss M.D. hx smoking, HTN, DM, HLD, c/ o chest pain and worsening TYLER. PFT unchanged from 1 year ago. Scheduled 01/16/2020 [facility] [place] [address] [phone]
--- OUTSIDE RECORDS SUMMARY | 2020-04-10 17:26 | CCD | Continuity of Care Document ---
Author Author Margie HICKS M.D. Organization Unknown Address [address] [place] [address] Phone [phone] Care Team Providers Care Mail Order Sorter Name Role Phone Nelida Marquis AUTM [phone] AUTM Unavailable Problems Description No Active [...] SIG Qnty Indications Ordering Provide r Date Trelegy Ellipta 200- 62.5-25mcg/Inh Aerosol inhale 1 puff by mouth every day 60units J44.9 Vivienne Hicks M.D. 02/14/2020 Suprep Bowel Prep Kit 17.5-3.13-1.6GM/177ML Solution as directed - see dr meadows instructions 1Kit K62.5 Can Montgomery MD 11/07/2019 Milk Of Magnesia 7.75% Suspension take 45 milliliters by mouth about 1-2 days before colonoscopy prep 360ml K62.5 Can Montgomery MD 11/07/2019 BIPAP 12/8CM LCW Vivienne Hicks M.D. 07/13 Albuterol Sulfate (2 .5mg/3ML) 0.083% Nebulizer 1 four times a day as needed 1080ml J45.40 Aurora Hicks M.D. 05/17/2018 Basaglar Kwikpen 100 Unit/ML Solution Pen-Inject Unknown Vitamin D3 1.25mg ([address] [address]) Capsu les every week Unknown Tamsulosin [...] mouth every night at bedtime Unk nown Irbesartan 300mg Tablets tab by mouth every [...] mouth every morning 30tabs Unknown History Medications Arnuity Ellipta 100mcg/Act Aerosol 1 puff inhaled every day 30units J45.40 Vivienne Hicks M.D. 0 - 02/14/2020 Chantix Starting Month Juan Miguel 0.5mg X [...] lb BMI (Body Mass Index) 23.8 kg/m2 [place] Body Weight 178 lb Weight 79.550 kg BSA (Body Surface Area) 2.01 m2 11/07/2019 11:27am BP Systolic 191 mmHg BP Diastolic 124 mmHg Height 72 inches 6'0" Weight 175.00 lb BMI (Body Mass Index) 23.7 kg/m2 [place] Body Weight 178 lb Weight 79.380 kg BSA (Body Surface Area) 2.01 m2 Results Test Acquired Date Facility Test Result H/L Range Note FVL/Jacob 02/14/2020 [facility] PD[facility]eport SEE IMAGE FVC-Pred 4.63 L FVC-Pre 3.63 L FVC-%Pred-Pre 78 L FVC-LLN 3.63 L Fev1-Pred 3.76 L Fev1-Pre 2.36 L Fev1-%Pred-Pre 62 L Fev1-LLN 2.88 L Fev6-Pred 4.53 L Fev6-Pre 3.63 L Fev6-%Pred-Pre 80 L Fev6-LLN 3.55 L Ewz0iaj-Zdde 81 % Wgy4hfu-Jrf 65 % Hwi4edi-%Pred-Pre 79 % Bbn8cwg-ADM 71 % Bhj0yhn-Omrp 98 % Jaj4stl-Kqv 100 % Fko2ors-%Pred-Pre 102 % FEFMax-Pred 9.61 L/E/sec FEFMax-Pre 3.94 L/E/sec FEFMax-%Pred-Pre 41 L/E/sec FEFMax-LLN 6.80 L/E/sec Qjf5419-Qxyn 3.82 L/E/sec Itv5081-Hya 1.48 L/E/sec Ubp5359-%Pred-Pre 38 L/E/sec Hms1576-YBT 1.93 L/E/sec ExpTime-Pre 5.49 sec Kct2ltn8-Ukgk 83 % Qvu7jua4-Tjx 65 % Hia1avk4-%Pred-Pre 78 % Dqb3sjk8-AWX 73 % FVL/[place] 08/23/2019 [employer] PDFReport SEE IMAGE FVC-Pred 4.63 L FVC-Pre 3.54 L FVC-%Pred-Pre 76 L FVC-LLN 3.63 L Fev1-Pred 3.76 L Fev1-Pre 2.36 L Fev1-%Pred-Pre 62 L Fev1-LLN 2.88 L Fev6-Pred 4.53 L Fev6-Pre 3.54 L Fev6-%Pred-Pre 78 L Fev6-LLN 3.55 L Rpo8odk-Hkjq 81 % Oec8flt-Bbu 67 % Meq3cku-%Pred-Pre 81 % Zcj4inm-GFI 71 % Ypf6xik-Mwmr 98 % Cix4npz-Zso 100 % Ius0ohk-%Pred-Pre 102 % FEFMax-Pred 9.61 L/E/sec FEFMax-Pre 4.13 L/E/sec FEFMax-%Pred-Pre 42 L/E/sec FEFMax-LLN 6.80 L/E/sec Lkx4024-Svmj 3.82 L/E/sec Txx0340-Sih 1.48 L/E/sec Vio0882-%Pred-Pre 38 L/E/sec Enl8585-KXP 1.93 L/E/sec ExpTime-Pre 5.99 sec Eib2xgn3-Srrt 83 % Lva3iwr5-Kbp 67 % Wll6bae2-%Pred-Pre 79 % Crk6kqw1-KOY 73 % Procedures Date Code Description Status 10/15/2019 73494 Diffusing Capacity Completed 10/15/2019 11205 Plethysmography Determination Pam ng Volumes & Per Airway Resist Completed 10/15/2019 84153 Maximum Breathing Capacity, Maxi mal Voluntary Ventilation Completed 10/15/2019 31011 Spirometry Completed 08/23/2019 08404 Spirometry Completed Medical Devices Description No Information Available Encounters Type Date Location Provider Dx Diagnosis Office Visit 02/14/2020 3:00p [facility] Vivienne Bonner M.D. J44.9 Chronic obstructive pulmonar y disease, unspecified G47.33 Obstructive sleep apnea (piyush lt) (pediatric) J45.40 Moderate persistent asthma, uncomplicated F17.218 Nicotine dependence, cigaret june, w oth disorders Office Visit 11/07/2019 11:30a [facility] Can Montgomery MD K62.5 Hemorrhage of anus and rectum R19.7 Diarrhea, unspecified R93.3 Abnormal findings on dx imag ing of prt digestive tract Office Visit 10/15/2019 3:30p [facility] Vivienne Bonner M.D. J44.9 Chronic obstructive pulmonar y disease, unspecified G47.33 Obstructive sleep apnea (piyush lt) (pediatric) J45.40 Moderate persistent asthma, uncomplicated F17.218 Nicotine dependence, cigaret june, w oth disorders R07.9 Chest pain, unspecified Office Visit 08/23/2019 8:30a [facility] Vivienne Bonner M.D. G47.33 Obstructive sleep apnea (piyush lt) (pediatric) J44.9 Chronic obstructive pulmonar y disease, unspecified J45.40 Moderate persistent asthma, uncomplicated F17.218 Nicotine dependence, cigaret june, w oth disorders Assessments Date Code Description Provider 02/14/2020 J44.9 Chronic obstructive pulmonary di sease, unspecified Vivienne Hicks M.D. 02/14/2020 G47.33 Obstructive sleep apnea (adult) (pediatric) Vivienne Hicks M.D. 02/14/2020 J45.40 Moderate persistent asthma, unco mplicated Vivienne Hicks M.D. 02/14/2020 F17.218 Nicotine dependence, cigarettes, with other nicotine-induced disorders Vivienne Hicks M.D. 11/07/2019 K62.5 Hemorrhage of anus and rectum [...] disorders Vivienne Hicks M.D. Plan of Treatment Future Appointment(s):* 08/14/2020 1:00 pm - Vivienne Hicks M.D. at [facility] 02/14/2020 - Vivienne Hicks M.D.* J44.9 Chronic obstructive pulmonary disease, unspecified * G47.33 Obstructive sleep apnea (adult) (pediatric) * J45.40 Moderate persistent asthma, uncomplicated * F17.218 Nicotine dependence, cigarettes, with other nicotine-induced disorders * * New Medication:* Trelegy Ellipta 200-62.5-25 mcg/Inh * Follow up:* Follow-up in 6 mo with spirometry and compliance Functional Status Functional Condition Comment Date Status [...] unchanged from 1 year ago. Scheduled 01/16/2020 [facility], [facility], [address] [address] [phone]
--- OUTSIDE RECORDS SUMMARY | 2020-04-10 17:26 | CCD ---
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 Active 305638606 Problem Intractable migraine with aura with status migrainosus G43.111 Active 444366850 Problem Depression, unspecified depression type F32.9 Active 64527972 Problem Risky sexual behavior Z72.51 Active 121125008 Problem Muscle tension headache G44.209 Active 35486987 6 Problem DDD (degenerative disc disease), lumbar M51.36 Active 09944104 Problem Hypogonadism in male E29.1 Active 72749853 Problem Migraine aura, persistent, intractable G43.519 A ctive 055518182 Problem Chronic obstructive pulmonary disease, unspecified COPD ty pe J44.9 Active 39803630 Problem Syncope, unspecified syncope type R55 Active 655117909 Problem 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 Active 277809189 Problem Moderate persistent asthma, unspecified whether complicate d J45.40 Active 396100792 Problem 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.4 Active 744493584 Problem Sleep disorder, unspecified G47.9 Active 3989 8005 Problem Sleep apnea in adult G47.30 Active 28403526 Problem Migraine with aura and without status migrainosu s, not intractable G43.109 Active 1566578 Problem Essential hypertension I10 Active 84166054 Problem ANALILIA (obstructive sleep apnea) G47.33 Active 78 469656 Problem Tobacco use Z72.0 Active 799945996 Problem Diabetic polyneuropathy asso ciated with diabetes mellitus due to underlying condition E08.42 Active 50810890 Problem Erectile dysfunction, unspecified erectile dysfunction typ e N52.9 Active 763446565 Problem LBBB (left bundle branch block) I44.7 Active 88906787 Problem Gastroesophageal reflux disease, esophagitis pre sence not specified K21.9 Active 725996496 Problem Spondylosis without myelopathy or radiculopathy, lumbar region M47.816 Active 15390703 Problem Neuropathy G62.9 Active 811032009 Problem Vitamin D deficiency disease E55.9 Active 347 87458 Problem Diabetes, type 1.5, uncontrolled, 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 296510604 Problem Uncontrolled type 1 diabetes mellitus without complication E10.65 Active 149179568 Problem Combined hyperlipidemia E78.2 Active 05331670 3 Problem Intractable episodic cluster headache G44.011 Ac tive 104177599 Problem Metabolic disorder, unspecified E88.9 Active 19913309 Problem 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 Active 51368 004 Problem Benign prostatic hyperplasia with lower urinary tract symptoms N40.1 Active 8969093446544 Problem PAD (peripheral artery disease) I73.9 Active 908762920 Problem Vitamin D deficiency E55.9 Active 64168609 ALLERGIES No Known Allergies ENCOUNTERS from 1975 to 2020-02-13 Encounter Location Date Provider Diagnosis [address] [address] Jan, Nelida Marquis IMMUNIZATIONS Vaccine Route Administration Date [...] Education Language: Question Answer Notes Languages spoken: Georgian Mandaeism: Question Answer Notes Mandaeism PT STATES NO PREFERE NCE Drug and [...] 30 day(s) July, Active Ergocalciferol 1.25 MG (02268 UT) 1 capsule Orally every oth er [...] Information RESULTS No Results 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 C[facility]. [place], [place] c h/o cocaine use Medical History CHRONIC MIGRAINES Surgical History EGD c Dr. Montgomery small hiatal hernia o/w neg/nl 03/2016 Hospitalization History DKA vs. [facility] see above for details 2017 Hospitalization History HTN 07/11-07/13/2017 Goals Section No Information Health Concerns No Information MEDICAL EQUIPMENT No Information MENTAL STATUS No Information FUNCTIONAL STATUS No Information ASSESSMENTS No Information PLAN OF TREATMENT Next Appt Details Provider Name:Nelida Hessatsworth, 2019-03 10:30:00 AM, [address] [place], [address], Provider Name:Nelida Ivania Marquis, 04-28 10:45:00 AM, [address] [place], [address], Insurance Providers Payer Name Payer Address Payer Phone Insured Name Patient Relati onship to Insured Coverage Start Date Coverage End Date [facility] [address] [facility][1] [phone] PINKY BEASLEY
--- OUTSIDE RECORDS SUMMARY | 2020-04-10 17:26 | CCD ---
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 Active 551550170 Problem Intractable migraine with aura with status migrainosus G43.111 Active 205830551 Problem Depression, unspecified depression type F32.9 Active 04643041 Problem Risky sexual behavior Z72.51 Active 813166431 Problem Muscle tension headache G44.209 Active 41692862 6 Problem DDD (degenerative disc disease), lumbar M51.36 Active 91042945 Problem Hypogonadism in male E29.1 Active 53313490 Problem Migraine aura, persistent, intractable G43.519 A ctive 560285143 Problem Chronic obstructive pulmonary disease, unspecified COPD ty pe J44.9 Active 75083717 Problem Syncope, unspecified syncope type R55 Active 889996727 Problem 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 Active 703096206 Problem Moderate persistent asthma, unspecified whether complicate d J45.40 Active 558800485 Problem 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 Active 435954567 Problem Sleep disorder, unspecified G47.9 Active 3989 8005 Problem Sleep apnea in adult G47.30 Active 55044114 Problem Migraine with aura and without status migrainosu s, not intractable G43.109 Active 1897090 Problem Essential hypertension I10 Active 19223822 Problem ANALILIA (obstructive sleep apnea) G47.33 Active 78 450403 Problem Tobacco use Z72.0 Active 065970738 Problem Diabetic polyneuropathy asso ciated with diabetes mellitus due to underlying condition E08.42 Active 26305589 Problem Erectile dysfunction, unspecified erectile dysfunction typ e N52.9 Active 785803281 Problem LBBB (left bundle branch block) I44.7 Active 10269848 Problem Gastroesophageal reflux disease, esophagitis pre sence not specified K21.9 Active 124780073 Problem Spondylosis without myelopathy or radiculopathy, lumbar region M47.816 Active 17652785 Problem Neuropathy G62.9 Active 662874752 Problem Vitamin D deficiency disease E55.9 Active 347 36151 Problem Diabetes, type 1.5, uncontrolled, 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 946201822 Problem Uncontrolled type 1 diabetes mellitus without complication E10.65 Active 965203860 Problem Combined hyperlipidemia E78.2 Active 68102225 3 Problem Intractable episodic cluster headache G44.011 Ac tive 979443032 Problem Metabolic disorder, unspecified E88.9 Active 71842784 Problem 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 Active 47489 004 Problem Benign prostatic hyperplasia with lower urinary tract symptoms N40.1 Active 2201904777339 Problem PAD (peripheral artery disease) I73.9 Active 971269839 Problem Vitamin D deficiency E55.9 Active 55357125 ALLERGIES No Known Allergies ENCOUNTERS from 1975 to 2020-01-29 Encounter Location Date Provider Diagnosis [address] [address] 16 Jan, 2020 Chuyita [place] IMMUNIZATIONS Vaccine Route Administration Date Status Pneumococcal [...] Education Language: Question Answer Notes Languages spoken: Uruguayan Yarsanism: Question Answer Notes Yarsanism PT STATES [...] Notes Start Da te End Date Status Aspirin 81 MG 1 tablet Orally Once a day for 30 day(s) Dec, Active Invokana 100 MG 1 tablet before first meal Orally Once a day for 30 Days Jun, Active HydrOXYzine HCl 25 mg 1 tablet as needed for pruri tus Orally every 6 hrs for 30 day(s) July, Active Ergocalciferol 1.25 MG (24875 UT) 1 capsule Orally every oth er week for 30 Days Jun, Active OneTouch Verio - as directed Dx E11.9 AC TID and QHS, prn when not well five times daily and as needed for 30 Days Active Trelegy Ellipta 100-62.5-25 MCG/INH 1 puff Inhalation Once a day for 30 day(s) Active Alcohol Swabs 70 % 1 topically Five times daily for insulin & 4times daily for testing for 30 Days Sep, Active Celexa 40 MG 1 tab Orally Once a day for 30 day(s) Active Basaglar KwikPen 100 UNIT/ML 60 units Subcutaneous before bedtime for 50 Active APAP 500 MG 1 capsule as needed Orally every 6 hrs for 30 day(s) Active TraZODone HCl 50 MG 1 tablet at bedtime as neede d Orally Once a day for 30 day(s) Sep, Active Omeprazole 40 MG 1 capsule Orally Daily for 90 day(s) Active HydrALAZINE HCl 10 MG 1 tablet with food Orally three times daily for 30 day(s) Active Glucose 4 GM take one tablet Orally as needed for low blood sugars Active BD Pen Needle Jessica U/F 32G X 4 MM as directed subcutan eously 5 times a day as needed for 30 Days Sep, Active Ventolin HFA 108 (90 Base) MCG/ACT 1 puffs as needed I nhalation FR[place] every 6 hrs for 30 day(s) Active Chlorthalidone 25 MG TAKE ONE TABLET BY MOUTH EVERY MORNING WITH FOOD for 30 Active Gabapentin 400 MG 1 capsule Orally three times daily for 30 day(s) Active Ibuprofen 400 MG 1 tablet with food or milk a s needed Orally Three times a day as needed for pain or fever for 30 day(s) Active Metformin HCl 500 MG 1 tab Orally AC BID for 30 Days Active Depakote ER 500 MG 2 tablets Orally before bedtime for 30 day(s) Active Atenolol 100 MG 1 tablet Orally Once a day for 30 Days Active Chlorthalidone 25 MG 1 tablet in the morning with food Orally Once a day for 30 Days Active Irbesartan 300 MG 1 tablet Orally qpm for 30 Days Active AmLODIPine Besylate 5 MG 1 tablet Orally Once a day for 30 Days Active Viagra 25 MG 1 tablet as needed Orally Once a day for 30 day(s) Active Lancets 30G - Dx E11.9 One Touch Delica rodriguez bcutaneously five times daily and as needed for 30 Days Active Humalog Pen 100 UNIT/ML MDD :33units/Day Sliding sca le/meal Subcutaneous before meals and at bedtime for 30 Days Active OneTouch Verio w/Device as directed _ qid for 30 days Active Spironolactone 25 mg 1 tablet Orally Twice a day for 30 Days Active Atorvastatin Calcium 40 MG 1 tablet Orally Once a day at bedtime for 30 Days Oct, Active BD Pen Needle Mini U/F 31G X 5 MM as directed subcutan eously 5 times / day as needed for 30 Days Active Flomax 0.4 MG 1 capsule Orally Once a day for 30 day(s) Active Proctofoam HC 1-1 % 1 application as needed Rect al Four times a day for 30 day(s) Aug, Active RA Alcohol Swabs 70 % USE 5 TIMES A DAY FOR INSULI NS AND 4 TIMES A DAY FOR BLOOD GLUCOSE TESTING subcutaneously 5 times a day for 30 Days Active Anusol-HC 2.5 % 1 application to affected area Rectal Tw ice a day for 30 day(s) Mar, Active Levalbuterol Tartrate 45 MCG/ACT 1 puff as needed Inha lation every 4 hrs for 90 days Dec, Active PROCEDURES No Information RESULTS No Results REASON FOR VISIT Incorrect day MEDICAL (GENERAL) HISTORY Type Description Date Medical [...] hypertensive crisis seen in ED 09/2014 in [facility] [place], [place] c h/o cocaine use Medical History CHRONIC MIGRAINES Surgical History EGD c Dr. Montgomery small hiatal hernia o/w neg/nl 03/2016 Hospitalization History DKA vs. [facility] see above for details 2017 Hospitalization History HTN 07/11-07/13/2017 Goals Section No Information Health Concerns No Information MEDICAL EQUIPMENT No Information MENTAL STATUS No Information FUNCTIONAL STATUS No Information ASSESSMENTS No Information PLAN OF TREATMENT Medication Medication Name Sig Start Date Stop Date Lancets 30G - Dx E11.9 One Touch Delica rodriguez bcutaneously five times daily and as needed for 30 Days BD Pen Needle Jessica U/F 32G X 4 MM as directed subcutan eously 5 times a day as needed for 30 Days Sep, Humalog Pen 100 UNIT/ML MDD :33units/Day Sliding sca le/meal Subcutaneous before meals and at bedtime for 30 Days Irbesartan 300 MG 1 tablet Orally qpm for 30 Days Invokana 100 MG 1 tablet before first meal Orally Once a day for 30 Days Jun, Celexa 40 MG 1 tab Orally Once a day for 30 day(s) TraZODone HCl 50 MG 1 tablet at bedtime as neede d Orally Once a day for 30 day(s) Sep, HydrALAZINE HCl 10 MG 1 tablet with food Orally three times daily for 30 day(s) Ventolin HFA 108 (90 Base) MCG/ACT 1 puffs as needed I nhalation FRANCE every 6 hrs for 30 day(s) OneTouch Verio w/Device as directed _ qid for 30 days Gabapentin 400 MG 1 capsule Orally three times daily for 30 day( s) Flomax 0.4 MG 1 capsule Orally Once a day for 30 day(s) Levalbuterol Tartrate 45 MCG/ACT 1 puff as needed Inha lation every 4 hrs for 90 days Dec, Spironolactone 25 mg 1 tablet Orally Twice a day for 30 Days Atenolol 100 MG 1 tablet Orally Once a day for 30 Days Chlorthalidone 25 MG 1 tablet in the morning with food Orally Once a day for 30 Days HydrOXYzine HCl 25 mg 1 tablet as needed for pruri tus Orally every 6 hrs for 30 day(s) July, Viagra 25 MG 1 tablet as needed Orally Once a day for 30 day( s) Trelegy Ellipta 100-62.5-25 MCG/INH 1 puff Inhalation Once a day for 30 day(s) Basaglar KwikPen 100 UNIT/ML 60 units Subcutaneous before bedtim e for 50 Omeprazole 40 MG 1 capsule Orally Daily for 90 day(s) BD Pen Needle Mini U/F 31G X 5 MM as directed subcutan eously 5 times / day as needed for 30 Days AmLODIPine Besylate 5 MG 1 tablet Orally Once a day for 30 Days Metformin HCl 500 MG 1 tab Orally AC BID for 30 Days Depakote ER 500 MG 2 tablets Orally before bedtime for 30 day(s) Chlorthalidone 25 MG TAKE ONE TABLET BY MOUTH EVERY MORNING WITH FOOD for 30 Atorvastatin Calcium 40 MG 1 tablet Orally Once a day at bed time for 30 Days Oct, Ibuprofen 400 MG 1 tablet with food or milk a s needed Orally Three times a day as needed for pain or fever for 30 day(s) Glucose 4 GM take one tablet Orally as needed for low blood s ugars Aspirin 81 MG 1 tablet Orally Once a day for 30 day(s) Dec, Ergocalciferol 1.25 MG (43750 UT) 1 capsule Orally every oth er week for 30 Days Jun, Alcohol Swabs 70 % 1 topically Five times daily for insulin & 4times daily for testing for 30 Days Sep, APAP 500 MG 1 capsule as needed Orally every 6 hrs for 30 da y(s) Next Appt Details Provider Name:Chuyita Jacobs, 03:00:00 PM, [address] [place] [address], [phone], Provider Name:Nelida Marquis, 04-28 10:45:00 AM, [address] [place] [address], [phone], Insurance Providers Payer Name Payer Address Payer Phone Insured Name Patient Relati onship to Insured Coverage Start Date Coverage End Date [facility] [address] [place] [address] PINKY BEASLEY self
--- OUTSIDE RECORDS SUMMARY | 2020-04-10 17:26 | CCD ---
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 Active 124458816 Problem Intractable migraine with aura with status migrainosus G43.111 Active 553135029 Problem Depression, unspecified depression type F32.9 Active 16287721 Problem Risky sexual behavior Z72.51 Active 450492711 Problem Muscle tension headache G44.209 Active 67218978 6 Problem DDD (degenerative disc disease), lumbar M51.36 Active 05778478 Problem Hypogonadism in male E29.1 Active 62817776 Problem Migraine aura, persistent, intractable G43.519 A ctive 534147652 Problem Chronic obstructive pulmonary disease, unspecified COPD ty pe J44.9 Active 72097600 Problem Syncope, unspecified syncope type R55 Active 143699743 Problem 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 Active 859322087 Problem Moderate persistent asthma, unspecified whether complicate d J45.40 Active 466611193 Problem 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 Active 518518241 Problem Sleep disorder, unspecified G47.9 Active 3989 8005 Problem Sleep apnea in adult G47.30 Active 81900287 Problem Migraine with aura and without status migrainosu s, not intractable G43.109 Active 0620276 Problem Essential hypertension I10 Active 00205693 Problem ANALILIA (obstructive sleep apnea) G47.33 Active 78 297475 Problem Tobacco use Z72.0 Active 777132675 Problem Diabetic polyneuropathy asso ciated with diabetes mellitus due to underlying condition E08.42 Active 70528704 Problem Erectile dysfunction, unspecified erectile dysfunction typ e N52.9 Active 938160865 Problem LBBB (left bundle branch block) I44.7 Active 15008833 Problem Gastroesophageal reflux disease, esophagitis pre sence not specified K21.9 Active 557288123 Problem Spondylosis without myelopathy or radiculopathy, lumbar region M47.816 Active 78764573 Problem Neuropathy G62.9 Active 040141594 Problem Vitamin D deficiency disease E55.9 Active 347 14803 Problem Diabetes, type 1.5, uncontrolled, 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 411241984 Problem Uncontrolled type 1 diabetes mellitus without complication E10.65 Active 289327621 Problem Combined hyperlipidemia E78.2 Active 19412065 3 Problem Intractable episodic cluster headache G44.011 Ac tive 604891200 Problem Metabolic disorder, unspecified E88.9 Active 00468440 Problem 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 Active 13785 004 Problem Benign prostatic hyperplasia with lower urinary tract symptoms N40.1 Active 8151205034983 Problem PAD (peripheral artery disease) I73.9 Active 099331390 Problem Vitamin D deficiency E55.9 Active 60949404 ALLERGIES No Known Allergies ENCOUNTERS from 1975 to 2020-01-28 Encounter Location Date Provider Diagnosis [address] [address] 16 Jan, 2020 Nelida Marquis IMMUNIZATIONS Vaccine Route Administration Date [...] Education Language: Question Answer Notes Languages spoken: Wolof Cheondoism: Question Answer Notes Cheondoism PT STATES NO PREFERE NCE Drug and [...] 30 day(s) July, Active Ergocalciferol 1.25 MG (06135 UT) 1 capsule Orally every oth er [...] Information RESULTS No Results REASON FOR VISIT Wants to talk with Chuyita MEDICAL (GENERAL) HISTORY Type Description Date Medical [...] hypertensive crisis seen in ED 09/2014 in [facility] [place], [place] c h/o cocaine use Medical History CHRONIC MIGRAINES Surgical History EGD c Dr. Montgomery small hiatal hernia o/w neg/nl 03/2016 Hospitalization History DKA vs. [facility] see above for details 2017 Hospitalization History [...] for 30 day(s) Dec, Ergocalciferol 1.25 MG (77282 UT) 1 capsule Orally every oth er week for 30 Days Jun, Alcohol Swabs 70 % 1 topically Five times daily for insulin & 4times daily for testing for 30 Days Sep, APAP 500 MG 1 capsule as needed Orally every 6 hrs for 30 da y(s) Next Appt Details Provider Name:Chuyita Jacobs, 03:00:00 PM, [address] [place] [address], [id number], Provider Name:Nelida Marquis, 2020-0 04-28 10:45:00 AM, [address] [place] [address], [phone], Insurance Providers Payer Name Payer Address Payer Phone Insured Name Patient Relati onship to Insured Coverage Start Date Coverage End Date [facility] [address] [facility] [phone] PINKY BEASLEY self
--- OUTSIDE RECORDS SUMMARY | 2020-04-10 17:26 | CCD ---
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 Active 991987002 Problem Intractable migraine with aura with status migrainosus G43.111 Active 968378254 Problem Depression, unspecified depression type F32.9 Active 64704207 Problem Risky sexual behavior Z72.51 Active 730123644 Problem Muscle tension headache G44.209 Active 05110001 6 Problem DDD (degenerative disc disease), lumbar M51.36 Active 43778492 Problem Hypogonadism in male E29.1 Active 32176515 Problem Migraine aura, persistent, intractable G43.519 A ctive 081306216 Problem Chronic obstructive pulmonary disease, unspecified COPD ty pe J44.9 Active 79397326 Problem Syncope, unspecified syncope type R55 Active 297109807 Problem 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 Active 251643247 Problem Moderate persistent asthma, unspecified whether complicate d J45.40 Active 351824914 Problem 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 Active 782222175 Problem Sleep disorder, unspecified G47.9 Active 3989 8005 Problem Sleep apnea in adult G47.30 Active 75963885 Problem Migraine with aura and without status migrainosu s, not intractable G43.109 Active 8558450 Problem Essential hypertension I10 Active 41309971 Problem ANALILIA (obstructive sleep apnea) G47.33 Active 78 565977 Problem Tobacco use Z72.0 Active 431252524 Problem Diabetic polyneuropathy asso ciated with diabetes mellitus due to underlying condition E08.42 Active 45534017 Problem Erectile dysfunction, unspecified erectile dysfunction typ e N52.9 Active 118238778 Problem LBBB (left bundle branch block) I44.7 Active 97663261 Problem Gastroesophageal reflux disease, esophagitis pre sence not specified K21.9 Active 090081587 Problem Spondylosis without myelopathy or radiculopathy, lumbar region M47.816 Active 53242587 Problem Neuropathy G62.9 Active 061919115 Problem Vitamin D deficiency disease E55.9 Active 347 14120 Problem Diabetes, type 1.5, uncontrolled, 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 496092938 Problem Uncontrolled type 1 diabetes mellitus without complication E10.65 Active 650431473 Problem Combined hyperlipidemia E78.2 Active 36056002 3 Problem Intractable episodic cluster headache G44.011 Ac tive 712531632 Problem Metabolic disorder, unspecified E88.9 Active 56410478 Problem 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 Active 77350 004 Problem Benign prostatic hyperplasia with lower urinary tract symptoms N40.1 Active 6993758499048 Problem PAD (peripheral artery disease) I73.9 Active 923960621 Problem Vitamin D deficiency E55.9 Active 03849163 ALLERGIES No Known Allergies ENCOUNTERS from 1975 to 2020-02-07 Encounter Location Date Provider Diagnosis [address] [address] Jan, Chuyita Jacobs Uncontrolled type 1 diabetes mellitus wi thout complication E10.65 ; 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 ; Diabetic polyneuropathy associated with diabetes mellitus due to underlying condition E08.42 ; Combined hyperlipidemia E78.2 ; Depression, unspecified depression type F32.9 and Essential hypertension I10 IMMUNIZATIONS Vaccine Route Administration Date Status Pneumococcal [...] Education Language: Question Answer Notes Languages spoken: Setswana Yazdanism: Question Answer Notes Yazdanism PT STATES NO PREFERE NCE Drug and [...] 30 day(s) July, Active Ergocalciferol 1.25 MG (24078 UT) 1 capsule Orally every oth er [...] Information RESULTS No Results REASON FOR VISIT initial appt MEDICAL (GENERAL) HISTORY Type Description Date Medical [...] hypertensive crisis seen in ED 09/2014 in [facility] [place], [place] c h/o cocaine use Medical History [...] Notes Treatment Notes Treatm ent Clinical Notes Jan, Uncontrolled type 1 diabetes mellitus without complication (ICD-10 - E10.65) Jan, long term care social worker current use of insulin (ICD-10 - Z79.4 ) Jan, Diabetic polyneuropathy asso ciated with diabetes mellitus due to underlying condition (ICD-10 - E08.42) Jan, Combined hyperlipidemia (ICD-10 - E78.2) Jan, Depression, unspecified depression type (ICD-10 - F32.9) Jan, Essential hypertension (ICD-10 - I10) PLAN OF TREATMENT Next Appt Details 4 Weeks Reason: Provider Name:Nelida Marquis, 04-28 10:45:00 AM, [address] [place], [address], Insurance Providers Payer Name Payer Address Payer Phone Insured Name Patient Relati onship to Insured Coverage Start Date Coverage End Date [facility] [address] [facility] [phone] PINKY BEASLEY self
--- OUTSIDE RECORDS SUMMARY | 2020-04-10 17:26 | CCD | Continuity of Care Document ---
Author Author Margie TAMEZ M.D. Organization Unknown Address [address] [place] [id number] Phone [phone] Care Team Providers Care Rack Cleaner Name Role Phone Nelida Marquis RPA AUTM [phone] Problems Active Problems Provider Date Chronic tension-type [...] lb BMI (Body Mass Index) 25.8 kg/m2 [place] Body Weight 172 lb Results Description No Information Available Procedures Date Code Description Status 10/29/2019 [address] [place] Muscles Inn ervated By Facial, Trigeminal, Cerv And Acces Completed Medical Devices Description No Information Available Encounters Description No Information Available Assessments Date Code Description Provider 10/29/2019 G43.719 Chronic migraine wit hout aura, intractable, without status migrainosus Myrna Tamez M.D. Plan of Treatment Future Appointment(s):* 04/01/2020 2:45 pm - Myrna Tamez M.D. at Main office - [place] Functional Status Description No Information Available Mental Status Description No Information Available Referrals Refer to Dr Reason for Referral Status Appt Date Myrna Tamez M.D. Created [facility] [address] [place] [address] [phone]
--- OUTSIDE RECORDS SUMMARY | 2020-04-10 17:27 | CCD ---
Author Author [facility] Organization [facility] Address Unknown Phone Unavailable Care Team Providers Care Advertising Rep Name Role Phone Ivania MILAN DPM Unavailable Unavailable Ivania MILAN DPM Unavailable Unavailable Ivania MILAN DPM Unavailable Unavailable Ivania MILAN DPM Unavailable Unavailable Ivania MILAN DPM Unavailable Unavailable Ivania MILAN DPM Unavailable Unavailable Ivania MILAN DPM Unavailable Unavailable Ivania MILAN DPM Unavailable Unavailable Ivania MILAN DPM Unavailable Unavailable Ivania MILAN DPM Unavailable Unavailable Ivania MILAN DPM Unavailable Unavailable Ivania MILAN DPM Unavailable Unavailable Ivania MILAN DPM Unavailable Unavailable Ivania MILAN DPM Unavailable Unavailable Ivania MILAN DPM Unavailable Unavailable Ivania MILAN DPM Unavailable Unavailable Ivania MILAN DPM Unavailable Unavailable Ivania MILAN DPM Unavailable Unavailable Ivania MILAN DPM Unavailable Unavailable Ivania MILAN DPM Unavailable Unavailable Ivania MILAN DPM Unavailable Unavailable Ivania MILAN DPM Unavailable Unavailable Ivania MILAN DPM Unavailable Unavailable Ivania MILAN DPM Unavailable Unavailable Ivania MILAN DPM Unavailable Unavailable Ivania MILAN DPM Unavailable Unavailable Ivania MILAN DPM Unavailable Unavailable Ivania MILAN DPM Unavailable Unavailable MAJAK, R MARCK DPM Unavailable Unavailable MAJAK, R MARCK DPM Unavailable Unavailable Swatsworth, R Nelida PA Unavailable Unavailable Swatsworth, R Nelida PA Unavailable Unavailable Swatsworth, R Nelida PA Unavailable Unavailable Swatsworth, R Nelida PA Unavailable Unavailable Swatsworth, R Nelida PA Unavailable Unavailable Swatsworth, R Nelida PA Unavailable Unavailable Swatsworth, R Nelida PA Unavailable Unavailable Swatsworth, R Nelida PA Unavailable Unavailable Swatsworth, R Nelida PA Unavailable Unavailable Swatsworth, R Nelida PA Unavailable Unavailable Swatsworth, R Nelida PA Unavailable Unavailable Swatsworth, R Nelida PA Unavailable Unavailable Swatsworth, R Nelida PA Unavailable Unavailable Swatsworth, R Nelida PA Unavailable Unavailable Swatsworth, R Nelida PA Unavailable Unavailable Swatsworth, R Nelida PA Unavailable Unavailable Swatsworth, R Nelida PA Unavailable Unavailable Swatsworth, R Nelida PA Unavailable Unavailable Swatsworth, R Nelida PA Unavailable Unavailable Swatsworth, R Nelida PA Unavailable Unavailable Swatsworth, R Nelida PA Unavailable Unavailable Swatsworth, R Nelida PA Unavailable Unavailable Swatsworth, R Nelida PA Unavailable Unavailable Swatsworth, R Nelida PA Unavailable Unavailable Swatsworth, R Nelida PA Unavailable Unavailable Swatsworth, R Nelida PA Unavailable Unavailable Swatsworth, R Nelida PA Unavailable Unavailable Swatsworth, R Nelida PA Unavailable Unavailable Swatsworth, R Nelida PA Unavailable Unavailable Swatsworth, R Nelida PA Unavailable Unavailable Swatsworth, R Nelida PA Unavailable Unavailable Swatsworth, R Nelida PA Unavailable Unavailable Swatsworth, R Nelida PA Unavailable Unavailable Swatsworth, R Nelida PA Unavailable Unavailable Swatsworth, R Nelida PA Unavailable Unavailable Swatsworth, R Nelida PA Unavailable Unavailable Swatsworth, R Nelida PA Unavailable Unavailable Swatsworth, R Nelida PA Unavailable Unavailable Swatsworth, R Nelida PA Unavailable Unavailable Swatsworth, R Nelida PA Unavailable Unavailable Swatsworth, R Nelida PA Unavailable Unavailable Swatsworth, R Nelida PA Unavailable Unavailable Swatsworth, R Nelida PA Unavailable Unavailable Swatsworth, R Nelida PA Unavailable Unavailable Swatsworth, R Nelida PA Unavailable Unavailable Swatsworth, R Nelida PA Unavailable Unavailable Swatsworth, R Nelida PA Unavailable Unavailable Swatsworth, R Nelida PA Unavailable Unavailable Dougie, L Lucille PA Unavailable Unavailable Dougie, L Lucille PA Unavailable Unavailable Dougie, L Lucille PA Unavailable Unavailable Dougie, L Lucille PA Unavailable Unavailable Dougie, L Lucille PA Unavailable Unavailable Dougie, L Lucille PA Unavailable Unavailable Dougie, L Lucille PA Unavailable Unavailable Dougie, L Lucille PA Unavailable Unavailable Dougie, L Lucille PA Unavailable Unavailable Dougie, L Lucille PA Unavailable Unavailable Dougie, L Lucille PA Unavailable Unavailable Dougie, L Lucille PA Unavailable Unavailable Dougie, L Lucille PA Unavailable Unavailable Dougie, L Lucille PA Unavailable Unavailable Dougie, L Lucille PA Unavailable Unavailable Dougie, L Lucille PA Unavailable Unavailable Dougie, L Lucille PA Unavailable Unavailable Dougie, L Lucille PA Unavailable Unavailable Dougie, L Lucille PA Unavailable Unavailable Dougie, L Lucille PA Unavailable Unavailable Dougie, L Lucille PA Unavailable Unavailable Dougie, L Lucille PA Unavailable Unavailable Dougie, L Lucille PA Unavailable Unavailable Vivienne Drake MD Unavailable Unavailable Vivienne Drake MD Unavailable Unavailable Vivienne Drake MD Unavailable Unavailable Vivienne Drake MD Unavailable Unavailable Vivienne Drake MD Unavailable Unavailable Vivienne Drake MD Unavailable Unavailable Vivienne Drake MD Unavailable Unavailable Vivienne Drake MD Unavailable Unavailable Vivienne Drake MD Unavailable Unavailable Vivienne Drake MD Unavailable Unavailable Vivienne Drake MD Unavailable Unavailable Vivienne Drake MD Unavailable Unavailable Vivienne Drake MD Unavailable Unavailable Vivienne Drake MD Unavailable Unavailable Vivienne Drake MD Unavailable Unavailable Vivienne Drake MD Unavailable Unavailable Vivienne Drake MD Unavailable Unavailable Vivienne Drake MD Unavailable Unavailable Vivienne Drake MD Unavailable Unavailable Vivienne Drake MD Unavailable Unavailable Vivienne Drake MD Unavailable Unavailable Vivienne Drake MD Unavailable Unavailable Vivienne Drake MD Unavailable Unavailable Vivienne Drake MD Unavailable Unavailable GILBERT BELL MD Unavailable Unavailable GILBERT BELL MD Unavailable Unavailable GILBERT BELL MD Unavailable Unavailable GILBERT BELL MD Unavailable Unavailable GILBERT BELL MD Unavailable Unavailable GILBERT BELL MD Unavailable Unavailable GILBERT BELL MD Unavailable Unavailable GILBERT BELL MD Unavailable Unavailable GILBERT BELL MD Unavailable Unavailable GILBERT BELL MD Unavailable Unavailable GILBERT BELL MD Unavailable Unavailable GILBERT BELL MD Unavailable Unavailable GILBERT BELL MD Unavailable Unavailable GILBERT BELL MD Unavailable Unavailable GILBERT BELL MD Unavailable Unavailable GILBERT BELL MD Unavailable Unavailable GILBERT BELL MD Unavailable Unavailable GILBERT BELL MD Unavailable Unavailable REINDL, GILBERT WILLIAM Unavailable Unavailable REINDL, GILBERT WILLIAM Unavailable Unavailable REINDL, GILBERT WILLIAM Unavailable Unavailable REINDL, GILBERT WILLIAM Unavailable Unavailable REINDL, GILBERT WILLIAM Unavailable Unavailable REINDL, GILBERT WILLIAM Unavailable Unavailable REINDL, GILBERT WILLIAM Unavailable Unavailable REINDL, GILBERT WILLIAM Unavailable Unavailable REINDL, GILBERT WILLIAM Unavailable Unavailable REINDL, GILBERT WILLIAM Unavailable Unavailable REINDL, GILBERT WILLIAM Unavailable Unavailable REINDL, GILBERT WILLIAM Unavailable Unavailable REINDL, GILBERT WILLIAM Unavailable Unavailable REINDL, GILBERT WILLIAM Unavailable Unavailable REINDL, GILBERT WILLIAM Unavailable Unavailable REINDL, GILBERT WILLIAM Unavailable Unavailable REINDL, GILBERT WILLIAM Unavailable Unavailable REINDL, GILBERT WILLIAM Unavailable Unavailable REINDL, GILBERT WILLIAM Unavailable Unavailable REINDL, GILBERT WILLIAM Unavailable Unavailable REINDL, GILBERT WILLIAM Unavailable Unavailable REINDL, GILBERT WILLIAM Unavailable Unavailable REINDL, GILBERT WILLIAM Unavailable Unavailable REINDL, GILBERT WILLIAM Unavailable Unavailable REINDL, GILBERT WILLIAM Unavailable Unavailable REINDL, GILBERT WILLIAM Unavailable Unavailable Myrna Tamez MD Unavailable Unavailable Myrna Tamez MD Unavailable Unavailable Myrna Tamez MD Unavailable Unavailable Myrna Tamez MD Unavailable Unavailable Myrna Tamez MD Unavailable Unavailable Myrna Tamez MD Unavailable Unavailable Myrna Tamez MD Unavailable Unavailable Myrna Tamez MD Unavailable Unavailable Myrna Tamez MD Unavailable Unavailable Myrna Tamez MD Unavailable Unavailable Myrna Tamez MD Unavailable Unavailable Myrna Tamez MD Unavailable Unavailable Myrna Tamez MD Unavailable Unavailable Myrna Tamez MD Unavailable Unavailable Myrna Tamez MD Unavailable Unavailable Myrna Tamez MD Unavailable Unavailable Myrna Tamez MD Unavailable Unavailable Myrna Tamez MD Unavailable Unavailable Myrna Tamez MD Unavailable Unavailable Myrna Tamez MD Unavailable Unavailable Myrna Tamez MD Unavailable Unavailable Myrna Tamez MD Unavailable Unavailable Myrna Tamez MD Unavailable Unavailable Myrna Tamez MD Unavailable Unavailable Myrna Tamez MD Unavailable Unavailable Myrna Tamez MD Unavailable Unavailable Myrna Tamez MD Unavailable Unavailable Myrna Tamez MD Unavailable Unavailable Myrna Tamez MD Unavailable Unavailable Myrna Tamez MD Unavailable Unavailable Myrna Tamez MD Unavailable Unavailable Myrna Tamez MD Unavailable Unavailable Myrna Tamez MD Unavailable Unavailable Myrna Tamez MD Unavailable Unavailable Myrna Tamez MD Unavailable Unavailable Myrna Tamez MD Unavailable Unavailable Myrna Tamez MD Unavailable Unavailable Myrna Tamez MD Unavailable Unavailable Myrna Tamez MD Unavailable Unavailable Myrna Tamez MD Unavailable Unavailable Myrna Tamez MD Unavailable Unavailable Myrna Tamez MD Unavailable Unavailable Myrna Tamez MD Unavailable Unavailable Myrna Tamez MD Unavailable Unavailable Myrna Tamez MD Unavailable Unavailable Myrna Tamez MD Unavailable Unavailable Myrna Tamez MD Unavailable Unavailable Myrna Tamez MD Unavailable Unavailable Myrna Tamez MD Unavailable Unavailable Swatsworth, R Nelida PA Unavailable Unavailable Swatsworth, R Nelida PA Unavailable Unavailable Swatsworth, R Nelida PA Unavailable Unavailable Swatsworth, R Nelida PA Unavailable Unavailable Swatsworth, R Nelida PA Unavailable Unavailable Swatsworth, R Nelida PA Unavailable Unavailable Swatsworth, R Nelida PA Unavailable Unavailable Swatsworth, R Nelida PA Unavailable Unavailable Swatsworth, R Nelida PA Unavailable Unavailable Swatsworth, R Nelida PA Unavailable Unavailable Swatsworth, R Nelida PA Unavailable Unavailable Swatsworth, R Nelida PA Unavailable Unavailable Swatsworth, R Nelida PA Unavailable Unavailable Swatsworth, R Nelida PA Unavailable Unavailable Swatsworth, R Nelida PA Unavailable Unavailable Swatsworth, R Nelida PA Unavailable Unavailable Swatsworth, R Nelida PA Unavailable Unavailable Swatsworth, R Nelida PA Unavailable Unavailable Swatsworth, R Nelida PA Unavailable Unavailable Swatsworth, R Nelida PA Unavailable Unavailable Swatsworth, R Nelida PA Unavailable Unavailable Swatsworth, R Nelida PA Unavailable Unavailable Swatsworth, R Nelida PA Unavailable Unavailable Swatsworth, R Nelida PA Unavailable Unavailable Swatsworth, R Nelida PA Unavailable Unavailable Swatsworth, R Nelida PA Unavailable Unavailable Swatsworth, R Nelida PA Unavailable Unavailable Swatsworth, R Nelida PA Unavailable Unavailable Swatsworth, R Nelida PA Unavailable Unavailable Swatsworth, R Nelida PA Unavailable Unavailable Swatsworth, R Nelida PA Unavailable Unavailable Swatsworth, R Nelida PA Unavailable Unavailable Swatsworth, R Nelida PA Unavailable Unavailable Swatsworth, R Nelida PA Unavailable Unavailable Swatsworth, R Nelida PA Unavailable Unavailable Swatsworth, R Nelida PA Unavailable Unavailable Swatsworth, R Nelida PA Unavailable Unavailable Swatsworth, R Nelida PA Unavailable Unavailable Swatsworth, R Nelida PA Unavailable Unavailable Swatsworth, R Nelida PA Unavailable Unavailable Swatsworth, R Nelida PA Unavailable Unavailable Swatsworth, R Nelida PA Unavailable Unavailable Swatsworth, R Nelida PA Unavailable Unavailable Swatsworth, R Nelida PA Unavailable Unavailable Swatsworth, R Nelida PA Unavailable Unavailable Swatsworth, R Nelida PA Unavailable Unavailable Swatsworth, R Nelida PA Unavailable Unavailable Swatsworth, R Nelida PA Unavailable Unavailable Re-disclosure Warning The records that you are about to access may contain information from federally-assisted alcohol or drug abuse programs. If such information is present, then the following federally mandated warning applies: This information has been disclosed to you from records protected by federal confidentiality rules (42 CFR part 2). The federal rules prohibit you from making any further disclosure of this information unless further disclosure is expressly permitted by the written consent of the person to whom it pertains or as otherwise permitted by 42 CFR part 2. A general authorization for the release of medical or other information is NOT sufficient for this purpose. The Federal rules restrict any use of the information to criminally investigate or prosecute any alcohol or drug abuse patient.The records that you are about to access may contain highly sensitive health information, the redisclosure of which is protected by Article 27-F of the [facility] Public Health law. If you continue you may have access to information: Regarding HIV / AIDS; Provided by facilities licensed or operated by the [facility] Office of Mental Health; or Provided by the [facility] Office for People With Developmental Disabilities. If such information is present, then the following [facility] mandated warning applies: This information has been disclosed to you from confidential records which are protected by state law. State law prohibits you from making any further disclosure of this information without the specific written consent of the person to whom it pertains, or as otherwise permitted by law. Any unauthorized further disclosure in violation of state law may result in a fine or penitentiary sentence or both. A general authorization for the release of medical or other information is NOT sufficient authorization for further disc losure. Family History Family Member Name Family Member Gender Family Member Status Date o f Status Description Data Source(s) Unknown Unknown Problem [facility] ([facility], ) Father Unknown Unknown Problem [facility] ([facility] Encounters Encounter Providers Location Date Indications Data Source(s ) Office Visit Attender: Myrna Tamez MD Main office - [place] 04/01/2020 01:45:00 PM EST MEDENT ([facility], ) Outpatient Attender: MARCK MILAN [facility] Office 03/14 09:15:00 AM EST [facility] ([facility] [place] [address] [facility] [address] 03/24/2020 12:00:00 AM EST eCW1 ([facility]) [place] [address] [facility] [address] 03/24/2020 12:00:00 AM EST eCW1 ([facility]) [place] [address] [facility] [address] 03/20/2020 12:00:00 AM EST eCW1 ([facility]) [place] [address] [facility] [address] 03/05/2020 12:00:00 AM EST eCW1 ([facility]) Outpatient [address] [facility] [place] [address] 02/28/2020 12:00:00 AM EST [facility]CW1 [facility] Office Visit Attender: Vivienne Dailey/Miroslava/Ashutosh/Hebert escoto 02/14/2020 02:00:00 PM EST MEDENT ([facility] [place] [address] [facility] [address] 02/14/2020 12:00:00 AM EST [facility] [place] [address] [facility] [address] 02/06/2020 12:00:00 AM EST eCW1 [facility] [place] [address] [facility] [address] 02/06/2020 12:00:00 AM EST eCW1 ([facility]) Unknown [address] [facility] [place] [address] 01/28/2020 12:00:00 AM EST eCW1 ([facility]) [place] [address] [facility] [address] 01/28/2020 12:00:00 AM EST eCW1 ([facility]) Unknown [address] [facility] [place] [address] 01/27/2020 12:00:00 AM EST eCW1 ([facility]) [place] [address] [facility] [address] 01/24/2020 12:00:00 AM EST eCW1 ([facility]) [place] [address] [facility] [address] 01/22/2020 12:00:00 AM EST eCW1 ([facility]) [place] [address] [facility] [address] 01/02/2020 12:00:00 AM EDT eCW1 ([facility]) [place] [address] [facility] [address] 01/02/2020 12:00:00 AM EDT eCW1 ([facility]) [place] [address] [facility] [address] 01/01/2020 12:00:00 AM EDT eCW1 ([facility]) [place] [address] [facility] [address] 12/29/2019 12:00:00 AM EDT eCW1 ([facility]) [place] [address] [facility] [address] 12/25/2019 12:00:00 AM EDT eCW1 ([facility]) [place] [address] [facility] [address] 12/20/2019 12:00:00 AM EDT eCW1 ([facility]) [place] [address] [facility] [address] 12/19/2019 12:00:00 AM EDT eCW1 ([facility]) [place] [address] [facility] [address] 12/04/2019 12:00:00 AM EDT eCW1 ([facility]) [place] [address] [facility] [address] 12/04/2019 12:00:00 AM EDT eCW1 ([facility]) [place] [address] [facility] [address] 12/04/2019 12:00:00 AM EDT eCW1 ([facility]) Outpatient Attender: GILBERT Dailey/Miroslava/Ashutosh/Rein dl 11/07/2019 11:30:00 AM EDT [facility] ([facility] [address] [facility] [address] 10/22/2019 12:00:00 AM EDT eCW1 ([facility]) Office Visit Attender: Vivienne Dailey/Miroslava/Ashutosh/Hebert ndl 10/15/2019 03:30:00 PM EDT [facility] ([facility]) [place] [address] [facility] [address] 09/24/2019 12:00:00 AM EDT eCW1 ([facility]) Outpatient Attender: Nelida Marquis PAConsultant: Nelida lane PA 09/03/2019 07:45:00 AM EDT - 09/03/2019 08:45:00 AM EDT [facility] Outpatient Attender: Vivienne Dailey/Miroslava/Ashutosh/Hebert ndl 08/23/2019 08:30:00 AM EDT [facility] ([facility] [address] [facility] [address] 08/22/2019 12:00:00 AM EDT eCW1 ([facility]) [place] [address] [facility] [address] 08/16/2019 12:00:00 AM EDT eCW1 ([facility]) [place] [address] [facility] [address] 08/16/2019 12:00:00 AM EDT eCW1 ([facility]) [place] [address] [facility] [address] 08/14/2019 12:00:00 AM EDT eCW1 ([facility]) [facility] [address] [facility] [address] 08/14/2019 12:00:00 AM EDT eCW1 ([facility]) [place] [address] [facility] [address] 08/13/2019 12:00:00 AM EDT eCW1 ([facility]) Outpatient Referrer: Nelida MOURA 08/09/2019 05:05: 00 AM EDT [facility] [address] [facility] [address] 08/08/2019 12:00:00 AM EDT eCW1 ([facility]) [facility] [address] [facility] [address] 07/31/2019 12:00:00 AM EDT eCW1 ([facility]) [facility] [address] [facility] [address] 07/10/2019 12:00:00 AM EDT eCW1 ([facility]) [facility] [address] [facility] [address] 06/30/2019 12:00:00 AM EDT eCW1 ([facility]) [facility] [address] [facility] [address] 06/26/2019 12:00:00 AM EDT eCW1 ([facility]) Unknown [address] [facility] [address] 06/18/2019 12:00:00 AM EDT eCW1 ([facility]) Unknown [address] [facility] [address] 06/18/2019 12:00:00 AM EDT eCW1 ([facility]) [facility] [address] [facility] [address] 06/18/2019 12:00:00 AM EDT eCW1 ([facility]) [facility] [address] [facility] [address] 06/18/2019 12:00:00 AM EDT eCW1 ([facility]) [facility] [address] [place] [address], [place] [address] 06/11/2019 12:00:00 AM EDT eCW1 ([facility]) [facility] [address] [place] [address], [place] [address] 06/11/2019 12:00:00 AM EDT eCW1 ([facility]) [address] [address] 06/11/2019 12:00:00 AM EDT eCW1 ([facility]) [address] [address] 06/07/2019 12:00:00 AM EDT eCW1 ([facility]) [address] [address] 06/04/2019 12:00:00 AM EDT eCW1 ([facility]) [address] [address] 06/04/2019 12:00:00 AM EDT eCW1 ([facility]) [address] [address] 05/31/2019 12:00:00 AM EDT eCW1 ([facility]) [facility] [address] [place] [address], [place] [address] 05/29/2019 12:00:00 AM EDT eCW1 ([facility]) [address] [address] 2019 12:00:00 AM EDT eCW1 ([facility]) [address] [address] 05/18/2019 12:00:00 AM EST eCW1 ([facility]) [address] [address] 05/18/2019 12:00:00 AM EST eCW1 ([facility]) [address] [address] 05/18/2019 12:00:00 AM EST eCW1 ([facility]) [address] [address] 05/04/2019 12:00:00 AM EST eCW1 ([facility]) [facility] [address] [place] [address] 04/26/2019 12:00:00 AM EST eCW1 ([facility]) [address] [address] 04/26/2019 12:00:00 AM EST eCW1 ([facility]) Outpatient Attender: Lucille MOURA Main Office 04/25/2019 11:45:0 0 AM EST [facility]ENT ([facility]) [address] [address] 04/19/2019 12:00:00 AM EST eCW1 ([facility]) [facility] [address] [place] [address] 04/17/2019 12:00:00 AM EST eCW1 ([facility]) [address] [address] 04/17/2019 12:00:00 AM EST eCW1 ([facility]) [facility] [address] [place] [address] 04/17/2019 12:00:00 AM EST eCW1 ([facility]) [address] [place] [address] 03/28/2019 12:00:00 AM EST eCW1 ([facility]) [address] [address] 03/16/2019 12:00:00 AM EST eCW1 ([facility]) [address] [address] 03/16/2019 12:00:00 AM EST eCW1 ([facility]) [address] [place] [address] 03/16/2019 12:00:00 AM EST eCW1 ([facility]) [address] [place] [address] 03/12/2019 12:00:00 AM EST eCW1 ([facility]) [address] [address] 03/01/2019 12:00:00 AM EST eCW1 ([facility]) [address] [address] 02/27/2019 12:00:00 AM EST eCW1 ([facility]) [address] [address] 02/20/2019 12:00:00 AM EST eCW1 ([facility]) [address] [address] 02/14/2019 12:00:00 AM EST eCW1 ([facility]) [address] [address] 02/13/2019 12:00:00 AM EST eCW1 ([facility]) Medications Medication Brand Name Start Date Product Form Dose Route Admi nistrative Instructions Pharmacy Instructions Status Indications Reaction Description Data Source(s) B Complex 03/27/2020 12:00:00 AM EST ORAL active MEDENT ([facility] 500 mg 03/25/2020 12:00:00 AM EST tablet 120 TAKE ONE TABLET BY MOUTH EVERY 6 HOURS NEEDED TAKE ONE TABLET BY MOUTH EVERY 6 HOURS NEEDED SOLD: 03/27/2020 [facility] BLOOD SUGAR DIAGNOSTIC 03/25/2020 12:00:00 AM EST strip 150 USE BEFORE MEALS THREE TIMES A DAY AND AT BEDTIME NEEDED MAXIMUM DAILY DOSE = 5 STRIPS USE BEFORE MEALS THREE TIMES A DAY AND AT BEDTIME NEEDED MAXIMUM DAILY DOSE = 5 STRIPS SOLD: 03/27/2020 [facility] tizanidine 4 MG Oral Tablet Tizanidine HCl 4 MG Tizanidine H Cl 4 MG 02/28/2020 12:00:00 AM EST 1.0 {tablet_as_needed} active Tizanidine HCl 4 MG [facility]CW[facility] tizanidine 4 MG Oral Tablet TIZANIDINE HCL 02/28/2020 12:00:00 AM EST tablet 90 TAKE ONE TABLET BY MOUTH THREE TIMES A DAY NEEDED T PARDEEP ONE TABLET BY MOUTH THREE TIMES A DAY NEEDED SOLD: 03/31/2020 [facility] gabapentin 600 MG Oral Tablet Gabapentin 600 MG Gabapentin 6 00 MG 02/28/2020 12:00:00 AM EST 1.0 {tablet} active Ga bapentin 600 MG eCW1 ([facility]) tizanidine 4 MG Oral Tablet Tizanidine HCl 4 MG Tizanidine H Cl 4 MG 02/28/2020 12:00:00 AM EST 1.0 {tablet_as_needed} active Tizanidine HCl 4 MG eCW1 ([facility]) tizanidine 4 MG Oral Tablet Tizanidine HCl 4 MG Tizanidine H Cl 4 MG 02/28/2020 12:00:00 AM EST 1.0 {tablet_as_needed} active Tizanidine HCl 4 MG eCW1 ([facility]) tizanidine 4 MG Oral Tablet Tizanidine HCl 4 MG Tizanidine H Cl 4 MG 02/28/2020 12:00:00 AM EST 1.0 {tablet_as_needed} active Tizanidine HCl 4 MG eCW1 ([facility]) tizanidine 4 MG Oral Tablet TIZANIDINE HCL 02/28/2020 12:00:00 AM EST tablet 90 TAKE ONE TABLET BY MOUTH THREE TIMES A DAY NEEDED T PARDEEP ONE TABLET BY MOUTH THREE TIMES A DAY NEEDED SOLD: 03/03/2020 [facility] tizanidine 4 MG Oral Tablet Tizanidine HCl 4 MG Tizanidine H Cl 4 MG 02/28/2020 12:00:00 AM EST 1.0 {tablet_as_needed} active Tizanidine HCl 4 MG eCW1 ([facility]) gabapentin 600 MG Oral Tablet Gabapentin 600 MG Gabapentin 6 00 MG 02/28/2020 12:00:00 AM EST 1.0 {tablet} active Ga bapentin 600 MG eCW1 ([facility]) tizanidine 4 MG Oral Tablet Tizanidine HCl 4 MG Tizanidine H Cl 4 MG 02/28/2020 12:00:00 AM EST 1.0 {tablet_as_needed} active Tizanidine HCl 4 MG eCW1 ([facility]) gabapentin 600 MG Oral Tablet Gabapentin 600 MG Gabapentin 6 00 MG 02/28/2020 12:00:00 AM EST 1.0 {tablet} active Ga bapentin 600 MG eCW1 ([facility]) gabapentin 600 MG Oral Tablet Gabapentin 600 MG Gabapentin 6 00 MG 02/28/2020 12:00:00 AM EST 1.0 {tablet} active Ga bapentin 600 MG eCW1 ([facility]) gabapentin 600 MG Oral Tablet Gabapentin 600 MG Gabapentin 6 00 MG 02/28/2020 12:00:00 AM EST 1.0 {tablet} active Ga bapentin 600 MG eCW1 ([facility]) 600 mg 02/28/2020 12:00:00 AM EST tablet 90 TAKE ONE TABLET BY MOUTH THREE TIMES A DAY TAKE ONE TABLET BY MOUTH THREE TIMES A DAY SOLD: 03/03/2020 [facility] gabapentin 600 MG Oral Tablet Gabapentin 600 MG Gabapentin 6 00 MG 02/28/2020 12:00:00 AM EST 1.0 {tablet} active Ga bapentin 600 MG eCW1 ([facility]) tizanidine 4 MG Oral Tablet Tizanidine HCl 4 MG Tizanidine H Cl 4 MG 02/28/2020 12:00:00 AM EST 1.0 {tablet_as_needed} active Tizanidine HCl 4 MG eCW1 ([facility]) gabapentin 600 MG Oral Tablet Gabapentin 600 MG Gabapentin 6 00 MG 02/28/2020 12:00:00 AM EST 1.0 {tablet} active Ga bapentin 600 MG eCW1 ([facility]) tizanidine 4 MG Oral Tablet Tizanidine HCl 4 MG Tizanidine H Cl 4 MG 02/28/2020 12:00:00 AM EST 1.0 {tablet_as_needed} active Tizanidine HCl 4 MG eCW1 ([facility]) gabapentin 600 MG Oral Tablet Gabapentin 600 MG Gabapentin 6 00 MG 02/28/2020 12:00:00 AM EST 1.0 {tablet} active Ga bapentin 600 MG eCW1 ([facility]) BLOOD SUGAR DIAGNOSTIC 02/16/2020 12:00:00 AM EST strip 150 TEST THREE TIMES A DAY BEFORE MEALS AND AT BEDTIME CAN USE UP TO 5 TIMES A DAY NEEDED WHEN NOT WELL TEST THREE TIMES A DAY BEFORE MEALS AND AT BEDTIME CAN USE UP TO 5 TIMES A DAY NEEDED WHEN NOT WELL SOLD: 02/20/2020 [facility] Trelegy Ellipta Trelegy Ellipta 02/14/2020 12:00:00 AM EST ORAL active MEDENT ([facility], ) 400 mg 01/28/2020 12:00:00 AM EST tablet 90 TAKE ONE TABLET BY MOUTH WITH FOOD OR MILK THREE TIMES A DAY NEEDED FOR PAIN OR FEVER TAKE ONE TABLET BY MOUTH WITH FOOD OR MILK THREE TIMES A DAY NEEDED FOR PAIN OR FEVER SOLD: 02/02/2020 [facility] 400 mg 01/28/2020 12:00:00 AM EST tablet 90 TAKE ONE TABLET BY MOUTH WITH FOOD OR MILK THREE TIMES A DAY NEEDED FOR PAIN OR FEVER TAKE ONE TABLET BY MOUTH WITH FOOD OR MILK THREE TIMES A DAY NEEDED FOR PAIN OR FEVER SOLD: 03/31/2020 [facility] 400 mg 01/28/2020 12:00:00 AM EST tablet 90 TAKE ONE TABLET BY MOUTH WITH FOOD OR MILK THREE TIMES A DAY NEEDED FOR PAIN OR FEVER TAKE ONE TABLET BY MOUTH WITH FOOD OR MILK THREE TIMES A DAY NEEDED FOR PAIN OR FEVER SOLD: 03/03/2020 [facility] 45 mcg/actuation 01/09/2020 12:00:00 AM EDT HFA aerosol inha ler 15 INHALE ONE PUFF BY MOUTH EVERY 4 HOURS INHALE ONE PUFF BY MOUTH EVERY 4 HOURS SOLD: 01/22/2020 [facility] 200 ACTUAT Levalbuterol 0.045 MG/ACTUAT Metered Dose Inhaler Levalbuterol Tartrate 45 MCG/ACT Levalbuterol Tartrate 45 MCG/ACT 01/08/2020 12:00:00 AM EDT 1.0 {puff_as_needed} active Lev albuterol Tartrate 45 MCG/ACT eCW1 ([facility]) 200 ACTUAT Levalbuterol 0.045 MG/ACTUAT Metered Dose Inhaler Levalbuterol Tartrate 45 MCG/ACT Levalbuterol Tartrate 45 MCG/ACT 01/08/2020 12:00:00 AM EDT 1.0 {puff_as_needed} active Lev albuterol Tartrate 45 MCG/ACT eCW1 ([facility]) 200 ACTUAT Levalbuterol 0.045 MG/ACTUAT Metered Dose Inhaler Levalbuterol Tartrate 45 MCG/ACT Levalbuterol Tartrate 45 MCG/ACT 01/08/2020 12:00:00 AM EDT 1.0 {puff_as_needed} active Lev albuterol Tartrate 45 MCG/ACT eCW1 ([facility]) 200 ACTUAT Levalbuterol 0.045 MG/ACTUAT Metered Dose Inhaler Levalbuterol Tartrate 45 MCG/ACT Levalbuterol Tartrate 45 MCG/ACT 01/08/2020 12:00:00 AM EDT 1.0 {puff_as_needed} active Lev albuterol Tartrate 45 MCG/ACT eCW1 ([facility]) 200 ACTUAT Levalbuterol 0.045 MG/ACTUAT Metered Dose Inhaler Levalbuterol Tartrate 45 MCG/ACT Levalbuterol Tartrate 45 MCG/ACT 01/08/2020 12:00:00 AM EDT 1.0 {puff_as_needed} active Lev albuterol Tartrate 45 MCG/ACT eCW1 ([facility]) 200 ACTUAT Levalbuterol 0.045 MG/ACTUAT Metered Dose Inhaler Levalbuterol Tartrate 45 MCG/ACT Levalbuterol Tartrate 45 MCG/ACT 01/08/2020 12:00:00 AM EDT 1.0 {puff_as_needed} active Lev albuterol Tartrate 45 MCG/ACT eCW1 ([facility]) 200 ACTUAT Levalbuterol 0.045 MG/ACTUAT Metered Dose Inhaler Levalbuterol Tartrate 45 MCG/ACT Levalbuterol Tartrate 45 MCG/ACT 01/08/2020 12:00:00 AM EDT 1.0 {puff_as_needed} active Lev albuterol Tartrate 45 MCG/ACT eCW1 ([facility]) 200 ACTUAT Levalbuterol 0.045 MG/ACTUAT Metered Dose Inhaler Levalbuterol Tartrate 45 MCG/ACT Levalbuterol Tartrate 45 MCG/ACT 01/08/2020 12:00:00 AM EDT 1.0 {puff_as_needed} active Lev albuterol Tartrate 45 MCG/ACT eCW1 ([facility]) 200 ACTUAT Levalbuterol 0.045 MG/ACTUAT Metered Dose Inhaler Levalbuterol Tartrate 45 MCG/ACT Levalbuterol Tartrate 45 MCG/ACT 01/08/2020 12:00:00 AM EDT 1.0 {puff_as_needed} active Lev albuterol Tartrate 45 MCG/ACT eCW1 ([facility]) 200 ACTUAT Levalbuterol 0.045 MG/ACTUAT Metered Dose Inhaler Levalbuterol Tartrate 45 MCG/ACT Levalbuterol Tartrate 45 MCG/ACT 01/08/2020 12:00:00 AM EDT 1.0 {puff_as_needed} active Lev albuterol Tartrate 45 MCG/ACT eCW1 ([facility]) 200 ACTUAT Levalbuterol 0.045 MG/ACTUAT Metered Dose Inhaler Levalbuterol Tartrate 45 MCG/ACT Levalbuterol Tartrate 45 MCG/ACT 01/08/2020 12:00:00 AM EDT 1.0 {puff_as_needed} active Lev albuterol Tartrate 45 MCG/ACT eCW1 ([facility]) 200 ACTUAT Levalbuterol 0.045 MG/ACTUAT Metered Dose Inhaler Levalbuterol Tartrate 45 MCG/ACT Levalbuterol Tartrate 45 MCG/ACT 01/08/2020 12:00:00 AM EDT 1.0 {puff_as_needed} active Lev albuterol Tartrate 45 MCG/ACT eCW1 ([facility]) 200 ACTUAT Levalbuterol 0.045 MG/ACTUAT Metered Dose Inhaler Levalbuterol Tartrate 45 MCG/ACT Levalbuterol Tartrate 45 MCG/ACT 01/08/2020 12:00:00 AM EDT 1.0 {puff_as_needed} active Lev albuterol Tartrate 45 MCG/ACT eCW1 ([facility]) 200 ACTUAT Levalbuterol 0.045 MG/ACTUAT Metered Dose Inhaler Levalbuterol Tartrate 45 MCG/ACT Levalbuterol Tartrate 45 MCG/ACT 01/08/2020 12:00:00 AM EDT 1.0 {puff_as_needed} active Lev albuterol Tartrate 45 MCG/ACT eCW1 ([facility]) 200 ACTUAT Levalbuterol 0.045 MG/ACTUAT Metered Dose Inhaler Levalbuterol Tartrate 45 MCG/ACT Levalbuterol Tartrate 45 MCG/ACT 01/08/2020 12:00:00 AM EDT 1.0 {puff_as_needed} active Lev albuterol Tartrate 45 MCG/ACT eCW1 ([facility]) 200 ACTUAT Levalbuterol 0.045 MG/ACTUAT Metered Dose Inhaler Levalbuterol Tartrate 45 MCG/ACT Levalbuterol Tartrate 45 MCG/ACT 01/08/2020 12:00:00 AM EDT 1.0 {puff_as_needed} active Lev albuterol Tartrate 45 MCG/ACT eCW1 ([facility]) 200 ACTUAT Levalbuterol 0.045 MG/ACTUAT Metered Dose Inhaler Levalbuterol Tartrate 45 MCG/ACT Levalbuterol Tartrate 45 MCG/ACT 01/08/2020 12:00:00 AM EDT 1.0 {puff_as_needed} active Lev albuterol Tartrate 45 MCG/ACT eCW1 ([facility]) 200 ACTUAT Levalbuterol 0.045 MG/ACTUAT Metered Dose Inhaler Levalbuterol Tartrate 45 MCG/ACT Levalbuterol Tartrate 45 MCG/ACT 01/08/2020 12:00:00 AM EDT 1.0 {puff_as_needed} active Lev albuterol Tartrate 45 MCG/ACT eCW1 ([facility]) 200 ACTUAT Levalbuterol 0.045 MG/ACTUAT Metered Dose Inhaler Levalbuterol Tartrate 45 MCG/ACT Levalbuterol Tartrate 45 MCG/ACT 01/08/2020 12:00:00 AM EDT 1.0 {puff_as_needed} active Lev albuterol Tartrate 45 MCG/ACT eCW1 ([facility]) 200 ACTUAT Levalbuterol 0.045 MG/ACTUAT Metered Dose Inhaler Levalbuterol Tartrate 45 MCG/ACT Levalbuterol Tartrate 45 MCG/ACT 01/08/2020 12:00:00 AM EDT 1.0 {puff_as_needed} active Lev albuterol Tartrate 45 MCG/ACT eCW1 ([facility]) 200 ACTUAT Levalbuterol 0.045 MG/ACTUAT Metered Dose Inhaler Levalbuterol Tartrate 45 MCG/ACT Levalbuterol Tartrate 45 MCG/ACT 01/08/2020 12:00:00 AM EDT 1.0 {puff_as_needed} active Lev albuterol Tartrate 45 MCG/ACT eCW1 ([facility]) 100 unit/mL 01/03/2020 12:00:00 AM EDT insulin pen 15 INJECT UNDER THE SKIN PER SLIDING SCALE BEFORE MEALS AND AT BEDTIME MAXIMUM DAILY DOSE = 33 UNITS INJECT UNDER THE SKIN PER SLIDING SCALE BEFORE MEALS AND AT BEDTIME MAXIMUM DAILY DOSE = 33 UNITS SOLD: 01/07/2020 [facility] 33 gauge 01/01/2020 12:00:00 AM EDT misc 150 USE TO TEST 5 TIMES DAILY AND NEEDED USE TO TEST 5 TIMES DAILY AND NEEDED SOLD: 01/01/2020 [facility] 0.12 % 01/01/2020 12:00:00 AM EDT mouthwash 473 RINSE MOUTH WITH 15ML (1 CAPFUL) FOR 30 SECONDS EVERY MORNING AND EVERY EVENING AFTER TOOTHBRUSHING. EXPECTORATE AFTER RINSING, DO NOT SWALLOW RINSE MOUTH WITH 15ML (1 CAPFUL) FOR 30 SECONDS EVERY MORNING AND EVERY EVENING AFTER TOOTHBRUSHING. EXPECTORATE AFTER RINSING, DO NOT SWALLOW SOLD: 01/01/2020 [facility] 0.12 % 01/01/2020 12:00:00 AM EDT mouthwash 473 RINSE MOUTH WITH 15ML (1 CAPFUL) FOR 30 SECONDS EVERY MORNING AND EVERY EVENING AFTER TOOTHBRUSHING. EXPECTORATE AFTER RINSING, DO NOT SWALLOW RINSE MOUTH WITH 15ML (1 CAPFUL) FOR 30 SECONDS EVERY MORNING AND EVERY EVENING AFTER TOOTHBRUSHING. EXPECTORATE AFTER RINSING, DO NOT SWALLOW SOLD: 03/31/2020 [facility] 0.12 % 01/01/2020 12:00:00 AM EDT mouthwash 473 RINSE MOUTH WITH 15ML (1 CAPFUL) FOR 30 SECONDS EVERY MORNING AND EVERY EVENING AFTER TOOTHBRUSHING. EXPECTORATE AFTER RINSING, DO NOT SWALLOW RINSE MOUTH WITH 15ML (1 CAPFUL) FOR 30 SECONDS EVERY MORNING AND EVERY EVENING AFTER TOOTHBRUSHING. EXPECTORATE AFTER RINSING, DO NOT SWALLOW SOLD: 02/09/2020 [facility] 800 mg 01/01/2020 12:00:00 AM EDT tablet 20 TAKE ONE TABLET BY MOUTH EVERY 8 HOURS TAKE ONE TABLET BY MOUTH EVERY 8 HOURS SOLD: 01/01/2020 [facility] 5 mg 01/01/2020 12:00:00 AM EDT tablet 30 TAKE ONE TABLET BY MOUTH EVERY DAY TAKE ONE TABLET BY MOUTH EVERY DAY SOLD: 01/01/2020 [facility] 5 mg 01/01/2020 12:00:00 AM EDT tablet 30 TAKE ONE TABLET BY MOUTH EVERY DAY TAKE ONE TABLET BY MOUTH EVERY DAY SOLD: 02/09/2020 [facility] 5 mg 01/01/2020 12:00:00 AM EDT tablet 30 TAKE ONE TABLET BY MOUTH EVERY DAY TAKE ONE TABLET BY MOUTH EVERY DAY SOLD: 03/22/2020 [facility] 100 mg 12/31/2019 12:00:00 AM EDT tablet 30 TAKE ONE TABLET BY MOUTH ONCE EVERY DAY BEFORE FIRST MEAL OF THE DAY TAKE ONE TABLET BY MOUTH ONCE EVERY DAY BEFORE FIRST MEAL OF THE DAY SOLD: 03/22/2020 [facility] 40 mg 12/31/2019 12:00:00 AM EDT capsule,delayed release (DR/EC) 30 TAKE ONE CAPSULE BY MOUTH EVERY DAY TAKE ONE CAPSULE BY MOUTH EVERY DAY SOLD: 03/27/2020 [facility] 400 mg 12/31/2019 12:00:00 AM EDT capsule 90 TAKE ONE CAPSULE BY MOUTH THREE TIMES A DAY TAKE ONE CAPSULE BY MOUTH THREE TIMES A DAY SOLD: 01/01/2020 [facility] 25 mg 12/31/2019 12:00:00 AM EDT tablet 30 TAKE ONE TABLET BY MOUTH EVERY DAY NEEDED TAKE ONE TABLET BY MOUTH EVERY DAY NEEDED SOLD: 03/22/2020 [facility] 100-62.5-25 mcg 12/31/2019 12:00:00 AM EDT blister with jaida ce 60 INHALE ONE PUFF BY MOUTH EVERY DAY INHALE ONE PUFF BY MOUTH EVERY DAY SOLD: 01/01/2020 [facility] atorvastatin 40 MG Oral Tablet ATORVASTATIN CALCIUM 12/31/2019 1 2:00:00 AM EDT tablet 30 TAKE ONE TABLET BY MOUTH EVERY D AY AT BEDTIME TAKE ONE TABLET BY MOUTH EVERY DAY AT BEDTIME SOLD: 01/01/2020 [facility] 1,250 mcg (50,000 unit) 12/31/2019 12:00:00 AM EDT capsule 2 TAKE ONE CAPSULE BY MOUTH ONCE EVERY OTHER WEEK TAKE ONE CAPSULE BY MOUTH ONCE EVERY OTHER WEEK SOLD: 01/01/2020 [facility] 25 mg 12/31/2019 12:00:00 AM EDT tablet 60 TAKE ONE TABLET BY MOUTH TWICE A DAY TAKE ONE TABLET BY MOUTH TWICE A DAY SOLD: 01/01/2020 [facility] 100 mg 12/31/2019 12:00:00 AM EDT tablet 30 TAKE ONE TABLET BY MOUTH EVERY DAY TAKE ONE TABLET BY MOUTH EVERY DAY SOLD: 03/22/2020 [facility] 25 mg 12/31/2019 12:00:00 AM EDT tablet 120 TAKE ONE TABLET BY MOUTH EVERY 6 HOURS NEEDED FOR PRURITUS TAKE ONE TABLET BY MOUTH EVERY 6 HOURS A S NEEDED FOR PRURITUS SOLD: 01/01/2020 [facility] 10 mg 12/31/2019 12:00:00 AM EDT tablet 90 TAKE ONE TABLET BY MOUTH THREE TIMES A DAY WITH FOOD TAKE ONE TABLET BY MOUTH THREE TIMES A DAY WITH FOOD S OLD: 01/01/2020 [facility] 24 HR Divalproex Sodium 500 MG Extended Release Oral Tablet DIVALPROEX SODIUM 12/31/2019 12:00:00 AM EDT tablet extended release 24 hr 30 TAKE TWO TABLETS BY MOUTH EVERY DAY AT BEDTIME TAKE TWO TABLETS BY MOUTH EVERY DAY AT BEDTIME SOLD: 01/01/2020 [facility] Omeprazole 40 MG Delayed Release Oral Capsule OMEPRAZOLE 12/31/2019 12:00:00 AM EDT capsule,delayed release(DR/EC) 30 TAKE ONE C APSULE BY MOUTH EVERY DAY TAKE ONE CAPSULE BY MOUTH EVERY DAY SOLD: 01/01/2020 [facility] ALCOHOL ANTISEPTIC PADS 12/31/2019 12:00:00 AM EDT pads, med icated 300 USE 5 TIMES A DAY FOR INSULIN AND 4 TIMES A DAY FOR TESTING USE 5 TIMES A DAY FOR INSULIN AND 4 TIMES A DAY FOR TESTING SOLD: 01/01/2020 [facility] 31 gauge x 3/16" 12/31/2019 12:00:00 AM EDT needle 150 USE 5 TIMES DAILY NEEDED DIRECTED USE 5 TIMES DAILY NEEDED DIRECTED SOLD: 01/01/2020 [facility] Metformin hydrochloride 500 MG Oral Tablet METFORMIN HCL 12/31/2019 12:00:00 AM EDT tablet 60 TAKE ONE TABLET BY MOUTH TWI CE A DAY BEFORE MEALS TAKE ONE TABLET BY MOUTH TWICE A DAY BEFORE MEALS SOLD: 01/01/2020 [facility] 100 unit/mL (3 mL) 12/31/2019 12:00:00 AM EDT insulin pen 15 INJECT 60 UNITS SUBCUTANEOUSLY AT BEDTIME INJECT 60 UNITS SUBCUTANEOUSLY AT BEDTIME SOLD: 01/01/2020 [facility] 400 mg 12/31/2019 12:00:00 AM EDT capsule 90 TAKE ONE CAPSULE BY MOUTH THREE TIMES A DAY TAKE ONE CAPSULE BY MOUTH THREE TIMES A DAY SOLD: 02/09/2020 [facility] 81 mg 12/31/2019 12:00:00 AM EDT tablet,chewable 30 CHEW ONE TABLET BY MOUTH EVERY DAY CHEW ONE TABLET BY MOUTH EVERY DAY SOLD: 01/01/2020 [facility] 0.4 mg 12/31/2019 12:00:00 AM EDT capsule 30 TAKE ONE CAPSULE BY MOUTH EVERY DAY TAKE ONE CAPSULE BY MOUTH EVERY DAY SOLD: 01/01/2020 [facility] 25 mg 12/31/2019 12:00:00 AM EDT tablet 30 TAKE ONE TABLET BY MOUTH EVERY DAY NEEDED TAKE ONE TABLET BY MOUTH EVERY DAY NEEDED SOLD: 02/09/2020 [facility] 50 mg 12/31/2019 12:00:00 AM EDT tablet 30 TAKE ONE TABLET BY MOUTH EVERY DAY AT BEDTIME NEEDED TAKE ONE TABLET BY MOUTH EVERY [facility] 01/01/2020 [facility] 300 mg 12/31/2019 12:00:00 AM EDT tablet 30 TAKE ONE TABLET BY MOUTH EVERY EVENING TAKE ONE TABLET BY MOUTH EVERY EVENING SOLD: 01/01/2020 [facility] 25 mg 12/31/2019 12:00:00 AM EDT tablet 30 TAKE ONE TABLET BY MOUTH EVERY DAY NEEDED TAKE ONE TABLET BY MOUTH EVERY DAY NEEDED SOLD: 01/01/2020 [facility] 100 mg 12/31/2019 12:00:00 AM EDT tablet 30 TAKE ONE TABLET BY MOUTH EVERY DAY TAKE ONE TABLET BY MOUTH EVERY DAY SOLD: 02/09/2020 [facility] 100 mg 12/31/2019 12:00:00 AM EDT tablet 30 TAKE ONE TABLET BY MOUTH ONCE EVERY DAY BEFORE FIRST MEAL OF THE DAY TAKE ONE TABLET BY MOUTH ONCE EVERY DAY BEFORE FIRST MEAL OF THE DAY SOLD: 01/01/2020 [facility] BLOOD-GLUCOSE METER 12/31/2019 12:00:00 AM EDT misc 1 USE TO TEST FOUR TIMES A DAY USE TO TEST FOUR TIMES A DAY SOLD: 01/01/2020 [facility] 1,250 mcg (50,000 unit) 12/31/2019 12:00:00 AM EDT capsule 2 TAKE ONE CAPSULE BY MOUTH ONCE EVERY OTHER WEEK TAKE ONE CAPSULE BY MOUTH ONCE EVERY OTHER WEEK SOLD: 03/27/2020 [facility] 25 mg 12/31/2019 12:00:00 AM EDT tablet 30 TAKE ONE TABLET BY MOUTH EVERY MORNING WITH FOOD TAKE ONE TABLET BY MOUTH EVERY MORNING WITH FOOD SOLD: 01/01/2020 [facility] 100 mg 12/31/2019 12:00:00 AM EDT tablet 30 TAKE ONE TABLET BY MOUTH ONCE EVERY DAY BEFORE FIRST MEAL OF THE DAY TAKE ONE TABLET BY MOUTH ONCE EVERY DAY BEFORE FIRST MEAL OF THE DAY SOLD: 02/09/2020 [facility] Atenolol 100 MG Oral Tablet ATENOLOL 12/31/2019 12:00:00 AM EDT table t 30 TAKE ONE TABLET BY MOUTH EVERY DAY TAKE ONE TABLET BY MOUTH EVERY DAY SOLD: 01/01/2020 [facility] 32 gauge x 5/32" 12/31/2019 12:00:00 AM EDT needle 200 USE 5 TIMES A DAY NEEDED DIRECTED USE 5 TIMES A DAY NEEDED DIRECTED SOLD: 01/01/2020 [facility] 100 unit/mL (3 mL) 12/31/2019 12:00:00 AM EDT insulin pen 15 INJECT 60 UNITS SUBCUTANEOUSLY AT BEDTIME INJECT 60 UNITS SUBCUTANEOUSLY AT BEDTIME SOLD: 02/09/2020 [facility] Citalopram 40 MG Oral Tablet CITALOPRAM HYDROBROMIDE 12/31/2019 12:00:00 AM EDT tablet 30 TAKE ONE TABLET BY MOUTH EVERY D AY TAKE ONE TABLET BY MOUTH EVERY DAY SOLD: 01/01/2020 [facility] 40 mg 12/31/2019 12:00:00 AM EDT capsule,delayed release (DR/EC) 30 TAKE ONE CAPSULE BY MOUTH EVERY DAY TAKE ONE CAPSULE BY MOUTH EVERY DAY SOLD: 02/09/2020 [facility] 500 mg 12/18/2019 12:00:00 AM EDT tablet 120 TAKE ONE TABLET BY MOUTH EVERY 6 HOURS NEEDED TAKE ONE TABLET BY MOUTH EVERY 6 HOURS NEEDED SOLD: 12/20/2019 [facility] 600 mg 12/13/2019 12:00:00 AM EDT tablet 21 TAKE ONE TABLET BY MOUTH THREE TIMES A DAY WITH FOOD TAKE ONE TABLET BY MOUTH THREE TIMES A DAY WITH FOOD S OLD: 12/13/2019 [facility] 500 mg 12/13/2019 12:00:00 AM EDT tablet 21 TAKE ONE TABLET BY MOUTH THREE TIMES A DAY TAKE ONE TABLET BY MOUTH THREE TIMES A DAY SOLD: 12/13/2019 [facility] 100 unit/mL 12/12/2019 12:00:00 AM EDT insulin pen 15 INJECT PER SLIDING SCALE, BEFORE MEALS AND AT BEDTIME MAXIMUM DAILY DOSE = 33 UNITS INJECT PER SLIDING SCALE, BEFORE MEALS AND AT BEDTIME MAXIMUM DAILY DOSE = 33 UNITS SOLD: 12/13/2019 [facility] 25 mg 12/03/2019 12:00:00 AM EDT tablet 30 TAKE ONE TABLET BY MOUTH EVERY DAY NEEDED TAKE ONE TABLET BY MOUTH EVERY DAY NEEDED SOLD: 12/05/2019 [facility] 40 mg 11/29/2019 12:00:00 AM EDT capsule,delayed release (DR/EC) 30 TAKE ONE CAPSULE BY MOUTH DAILY TAKE ONE CAPSULE BY MOUTH DAILY SOLD: 03/03/2020 [facility] 40 mg 11/29/2019 12:00:00 AM EDT capsule,delayed release (DR/EC) 30 TAKE ONE CAPSULE BY MOUTH DAILY TAKE ONE CAPSULE BY MOUTH DAILY SOLD: 12/05/2019 [facility] Magnesium Hydroxide 80 MG/ML Oral Suspension 400 mg/5 mL MAG NESIUM HYDROXIDE 11/07/2019 12:00:00 AM EDT suspension 355 TAKE 45 MLS BY MOUTH 1-2 DAYS BEFORE COLONOSCOPY PREP TAKE 45 MLS BY MOUTH 1-2 DAYS BEFORE COLONOSCOPY PREP SOLD: 11/08/2019 [facility] Suprep Bowel Prep Kit Suprep Bowel Prep Kit 11/07/2019 12:00:00 AM EDT active MEDENT ([facility], ) Magnesium Hydroxide 80 MG/ML Oral Suspension Milk Of Magnesi a 11/07/2019 12:00:00 AM EDT ORAL active M EDENT ([facility], ) 500 mg 11/06/2019 12:00:00 AM EDT tablet 21 TAKE ONE TABLET BY MOUTH THREE TIMES A DAY TAKE ONE TABLET BY MOUTH THREE TIMES A DAY SOLD: 11/06/2019 [facility] 600 mg 11/06/2019 12:00:00 AM EDT tablet 21 TAKE ONE TABLET BY MOUTH THREE TIMES A DAY WITH FOOD TAKE ONE TABLET BY MOUTH THREE TIMES A DAY WITH FOOD S OLD: 11/06/2019 [facility] 25 mg 11/02/2019 12:00:00 AM EDT tablet 30 TAKE ONE TABLET BY MOUTH EVERY DAY NEEDED TAKE ONE TABLET BY MOUTH EVERY DAY NEEDED SOLD: 11/06/2019 [facility] 100 mg 10/17/2019 12:00:00 AM EDT capsule 60 TAKE ONE CAPSULE BY MOUTH TWICE A DAY ( IN ADDITION TO 400MG ) TAKE ONE CAPSULE BY MOUTH TWICE A DAY ( IN ADDITION TO 400MG ) SOLD: 10/19/2019 [facility] 100 mg 10/17/2019 12:00:00 AM EDT capsule 60 TAKE ONE CAPSULE BY MOUTH TWICE A DAY ( IN ADDITION TO 400MG ) TAKE ONE CAPSULE BY MOUTH TWICE A DAY ( IN ADDITION TO 400MG ) SOLD: 12/13/2019 [facility] 25 mg 10/02/2019 12:00:00 AM EDT tablet 30 TAKE ONE TABLET BY MOUTH ONCE DAILY NEEDED TAKE ONE TABLET BY MOUTH ONCE DAILY NEEDED SOLD: 10/04/19 [facility] Isopropyl Alcohol 0.7 ML/ML Medicated Pad Alcohol Swabs 70 % Alcohol Swabs 70 % 09/19/2019 12:00:00 AM EDT active Alcohol Swabs 70 % eCW1 ([facility] Isopropyl Alcohol 0.7 ML/ML Medicated Pad Alcohol Swabs 70 % Alcohol Swabs 70 % 09/19/2019 12:00:00 AM EDT active Alcohol Swabs 70 % eCW1 ([facility]) Isopropyl Alcohol 0.7 ML/ML Medicated Pad Alcohol Swabs 70 % Alcohol Swabs 70 % 09/19/2019 12:00:00 AM EDT active Alcohol Swabs 70 % eCW1 ([facility]) Isopropyl Alcohol 0.7 ML/ML Medicated Pad Alcohol Swabs 70 % Alcohol Swabs 70 % 09/19/2019 12:00:00 AM EDT active Alcohol Swabs 70 % eCW1 ([facility]) Isopropyl Alcohol 0.7 ML/ML Medicated Pad Alcohol Swabs 70 % Alcohol Swabs 70 % 09/19/2019 12:00:00 AM EDT active Alcohol Swabs 70 % eCW1 ([facility]) Isopropyl Alcohol 0.7 ML/ML Medicated Pad Alcohol Swabs 70 % Alcohol Swabs 70 % 09/19/2019 12:00:00 AM EDT active Alcohol Swabs 70 % [email or web address] ([facility]) Isopropyl Alcohol 0.7 ML/ML Medicated Pad Alcohol Swabs 70 % Alcohol Swabs 70 % 09/19/2019 12:00:00 AM EDT active Alcohol Swabs 70 % [email or web address] ([facility]) Isopropyl Alcohol 0.7 ML/ML Medicated Pad Alcohol Swabs 70 % Alcohol Swabs 70 % 09/19/2019 12:00:00 AM EDT active Alcohol Swabs 70 % [email or web address] ([facility]) Isopropyl Alcohol 0.7 ML/ML Medicated Pad Alcohol Swabs 70 % Alcohol Swabs 70 % 09/19/2019 12:00:00 AM EDT active Alcohol Swabs 70 % [email or web address] ([facility]) Isopropyl Alcohol 0.7 ML/ML Medicated Pad Alcohol Swabs 70 % Alcohol Swabs 70 % 09/19/2019 12:00:00 AM EDT active Alcohol Swabs 70 % [email or web address] ([facility]) Isopropyl Alcohol 0.7 ML/ML Medicated Pad Alcohol Swabs 70 % Alcohol Swabs 70 % 09/19/2019 12:00:00 AM EDT active Alcohol Swabs 70 % [email or web address] ([facility]) Isopropyl Alcohol 0.7 ML/ML Medicated Pad Alcohol Swabs 70 % Alcohol Swabs 70 % 09/19/2019 12:00:00 AM EDT active Alcohol Swabs 70 % [email or web address] ([facility]) Isopropyl Alcohol 0.7 ML/ML Medicated Pad Alcohol Swabs 70 % Alcohol Swabs 70 % 09/19/2019 12:00:00 AM EDT active Alcohol Swabs 70 % [email or web address] ([facility]) Isopropyl Alcohol 0.7 ML/ML Medicated Pad Alcohol Swabs 70 % Alcohol Swabs 70 % 09/19/2019 12:00:00 AM EDT active Alcohol Swabs 70 % [facility] Isopropyl Alcohol 0.7 ML/ML Medicated Pad Alcohol Swabs 70 % Alcohol Swabs 70 % 09/19/2019 12:00:00 AM EDT active Alcohol Swabs 70 % [facility]CW1 [facility]) Isopropyl Alcohol 0.7 ML/ML Medicated Pad Alcohol Swabs 70 % Alcohol Swabs 70 % 09/19/2019 12:00:00 AM EDT active Alcohol Swabs 70 % [facility]CW1 [facility]) Isopropyl Alcohol 0.7 ML/ML Medicated Pad Alcohol Swabs 70 % Alcohol Swabs 70 % 09/19/2019 12:00:00 AM EDT active Alcohol Swabs 70 % [facility]CW1 ([facility]) Isopropyl Alcohol 0.7 ML/ML Medicated Pad Alcohol Swabs 70 % Alcohol Swabs 70 % 09/19/2019 12:00:00 AM EDT active Alcohol Swabs 70 % [facility]CW1 ([facility]) Isopropyl Alcohol 0.7 ML/ML Medicated Pad Alcohol Swabs 70 % Alcohol Swabs 70 % 09/19/2019 12:00:00 AM EDT active Alcohol Swabs 70 % [facility]CW1 ([facility]) Isopropyl Alcohol 0.7 ML/ML Medicated Pad Alcohol Swabs 70 % Alcohol Swabs 70 % 09/19/2019 12:00:00 AM EDT active Alcohol Swabs 70 % [facility]CW1 ([facility]) Isopropyl Alcohol 0.7 ML/ML Medicated Pad Alcohol Swabs 70 % Alcohol Swabs 70 % 09/19/2019 12:00:00 AM EDT active Alcohol Swabs 70 % [facility]CW1 ([facility]) Isopropyl Alcohol 0.7 ML/ML Medicated Pad Alcohol Swabs 70 % Alcohol Swabs 70 % 09/19/2019 12:00:00 AM EDT active Alcohol Swabs 70 % [facility]CW1 ([facility]) Isopropyl Alcohol 0.7 ML/ML Medicated Pad Alcohol Swabs 70 % Alcohol Swabs 70 % 09/19/2019 12:00:00 AM EDT active Alcohol Swabs 70 % [facility]CW1 ([facility]) Isopropyl Alcohol 0.7 ML/ML Medicated Pad Alcohol Swabs 70 % Alcohol Swabs 70 % 09/19/2019 12:00:00 AM EDT active Alcohol Swabs 70 % [facility]CW1 ([facility]) Isopropyl Alcohol 0.7 ML/ML Medicated Pad Alcohol Swabs 70 % Alcohol Swabs 70 % 09/19/2019 12:00:00 AM EDT active Alcohol Swabs 70 % [facility]CW1 ([facility]) Isopropyl Alcohol 0.7 ML/ML Medicated Pad Alcohol Swabs 70 % Alcohol Swabs 70 % 09/19/2019 12:00:00 AM EDT active Alcohol Swabs 70 % [facility]CW1 ([facility]) Isopropyl Alcohol 0.7 ML/ML Medicated Pad Alcohol Swabs 70 % Alcohol Swabs 70 % 09/19/2019 12:00:00 AM EDT active Alcohol Swabs 70 % [facility]CW1 ([facility]) Isopropyl Alcohol 0.7 ML/ML Medicated Pad Alcohol Swabs 70 % Alcohol Swabs 70 % 09/19/2019 12:00:00 AM EDT active Alcohol Swabs 70 % [facility]CW1 ([facility]) Isopropyl Alcohol 0.7 ML/ML Medicated Pad Alcohol Swabs 70 % Alcohol Swabs 70 % 09/19/2019 12:00:00 AM EDT active Alcohol Swabs 70 % [facility]CW1 ([facility]) Isopropyl Alcohol 0.7 ML/ML Medicated Pad Alcohol Swabs 70 % Alcohol Swabs 70 % 09/19/2019 12:00:00 AM EDT active Alcohol Swabs 70 % [facility]CW1 ([facility]) Isopropyl Alcohol 0.7 ML/ML Medicated Pad Alcohol Swabs 70 % Alcohol Swabs 70 % 09/19/2019 12:00:00 AM EDT active Alcohol Swabs 70 % [facility]CW1 ([facility]) Isopropyl Alcohol 0.7 ML/ML Medicated Pad Alcohol Swabs 70 % Alcohol Swabs 70 % 09/19/2019 12:00:00 AM EDT active Alcohol Swabs 70 % [facility]CW1 ([facility]) Isopropyl Alcohol 0.7 ML/ML Medicated Pad Alcohol Swabs 70 % Alcohol Swabs 70 % 09/19/2019 12:00:00 AM EDT active Alcohol Swabs 70 % [facility]CW1 ([facility]) Isopropyl Alcohol 0.7 ML/ML Medicated Pad Alcohol Swabs 70 % Alcohol Swabs 70 % 09/19/2019 12:00:00 AM EDT active Alcohol Swabs 70 % [facility]CW1 [facility]) Isopropyl Alcohol 0.7 ML/ML Medicated Pad Alcohol Swabs 70 % Alcohol Swabs 70 % 09/19/2019 12:00:00 AM EDT active Alcohol Swabs 70 % [facility]) BD Pen Needle Jessica U/F 32G X 4 MM BD Pen Needle Jessica U/F 32G X 4 MM 09/17/2019 12:00:00 AM EDT active BD Pen N eedle Jessica U/F 32G X 4 MM [facility]) BD Pen Needle Ejssica U/F 32G X 4 MM BD Pen Needle Jessica U/F 32G X 4 MM 09/17/2019 12:00:00 AM EDT active BD Pen N eedle Jessica U/F 32G X 4 MM [facility]) BD Pen Needle Jessica U/F 32G X 4 MM BD Pen Needle Jsesica U/F 32G X 4 MM 09/17/2019 12:00:00 AM EDT active BD Pen N eedle Jessica U/F 32G X 4 MM [facility]) BD Pen Needle Jessica U/F 32G X 4 MM BD Pen Needle Jessica U/F 32G X 4 MM 09/17/2019 12:00:00 AM EDT active BD Pen N eedle Jessica U/F 32G X 4 MM [facility]) BD Pen Needle Jessica U/F 32G X 4 MM BD Pen Needle Jessica U/F 32G X 4 MM 09/17/2019 12:00:00 AM EDT active BD Pen N eedle Jessica U/F 32G X 4 MM [facility]) BD Pen Needle Jessica U/F 32G X 4 MM BD Pen Needle Jessica U/F 32G X 4 MM 09/17/2019 12:00:00 AM EDT active BD Pen N eedle Jessica U/F 32G X 4 MM [facility]) BD Pen Needle Jessica U/F 32G X 4 MM BD Pen Needle Jessica U/F 32G X 4 MM 09/17/2019 12:00:00 AM EDT active BD Pen N eedle Jessica U/F 32G X 4 MM [facility]) BD Pen Needle Jessica U/F 32G X 4 MM BD Pen Needle Jessica U/F 32G X 4 MM 09/17/2019 12:00:00 AM EDT active BD Pen N eedle Jessica U/F 32G X 4 MM [facility]) BD Pen Needle Jessica U/F 32G X 4 MM BD Pen Needle Jessica U/F 32G X 4 MM 09/17/2019 12:00:00 AM EDT active BD Pen N eedle Jessica U/F 32G X 4 MM [facility]) BD Pen Needle Jessica U/F 32G X 4 MM BD Pen Needle Jessica U/F 32G X 4 MM 09/17/2019 12:00:00 AM EDT active BD Pen N eedle Jessica U/F 32G X 4 MM [facility]CW[facility]) BD Pen Needle Jessica U/F 32G X 4 MM BD Pen Needle Jessica U/F 32G X 4 MM 09/17/2019 12:00:00 AM EDT active BD Pen N eedle Jessica U/F 32G X 4 MM [facility]CW[facility]) BD Pen Needle Jessica U/F 32G X 4 MM BD Pen Needle Jessica U/F 32G X 4 MM 09/17/2019 12:00:00 AM EDT active BD Pen N eedle Jessica U/F 32G X 4 MM [facility]CW1 [facility]) BD Pen Needle Jessica U/F 32G X 4 MM BD Pen Needle Jessica U/F 32G X 4 MM 09/17/2019 12:00:00 AM EDT active BD Pen N eedle Jessica U/F 32G X 4 MM [facility]CW1 [facility]) BD Pen Needle Jessica U/F 32G X 4 MM BD Pen Needle Jessica U/F 32G X 4 MM 09/17/2019 12:00:00 AM EDT active BD Pen N eedle Jessica U/F 32G X 4 MM [facility]CW[facility]) BD Pen Needle Jessica U/F 32G X 4 MM BD Pen Needle Jessica U/F 32G X 4 MM 09/17/2019 12:00:00 AM EDT active BD Pen N eedle Jessica U/F 32G X 4 MM [facility]CW1 [facility]) BD Pen Needle Jessica U/F 32G X 4 MM BD Pen Needle Jessica U/F 32G X 4 MM 09/17/2019 12:00:00 AM EDT active BD Pen N eedle Jessica U/F 32G X 4 MM [facility]CW1 [facility]) BD Pen Needle Jessica U/F 32G X 4 MM BD Pen Needle Jessica U/F 32G X 4 MM 09/17/2019 12:00:00 AM EDT active BD Pen N eedle Jessica U/F 32G X 4 MM [facility]CW1 [facility]) BD Pen Needle Jessica U/F 32G X 4 MM BD Pen Needle Jessica U/F 32G X 4 MM 09/17/2019 12:00:00 AM EDT active BD Pen N eedle Jessica U/F 32G X 4 MM [facility]CW1 [facility]) BD Pen Needle Jessica U/F 32G X 4 MM BD Pen Needle Jessica U/F 32G X 4 MM 09/17/2019 12:00:00 AM EDT active BD Pen N eedle Jessica U/F 32G X 4 MM [facility]CW1 [facility]) BD Pen Needle Jessica U/F 32G X 4 MM BD Pen Needle Jessica U/F 32G X 4 MM 09/17/2019 12:00:00 AM EDT active BD Pen N eedle Jessica U/F 32G X 4 MM [facility]CW1 [facility]) BD Pen Needle Jessica U/F 32G X 4 MM BD Pen Needle Jessica U/F 32G X 4 MM 09/17/2019 12:00:00 AM EDT active BD Pen N eedle Jessica U/F 32G X 4 MM [facility]CW1 [facility]) BD Pen Needle Jessica U/F 32G X 4 MM BD Pen Needle Jessica U/F 32G X 4 MM 09/17/2019 12:00:00 AM EDT active BD Pen N eedle Jessica U/F 32G X 4 MM [facility]CW1 [facility]) BD Pen Needle Jessica U/F 32G X 4 MM BD Pen Needle Jessica U/F 32G X 4 MM 09/17/2019 12:00:00 AM EDT active BD Pen N eedle Jessica U/F 32G X 4 MM [facility]CW1 ([facility]) BD Pen Needle Jessica U/F 32G X 4 MM BD Pen Needle Jessica U/F 32G X 4 MM 09/17/2019 12:00:00 AM EDT active BD Pen N eedle Jessica U/F 32G X 4 MM [facility]CW1 ([facility]) BD Pen Needle Jessica U/F 32G X 4 MM BD Pen Needle Jessica U/F 32G X 4 MM 09/17/2019 12:00:00 AM EDT active BD Pen N eedle Jessica U/F 32G X 4 MM [facility]CW1 [facility]) BD Pen Needle Jessica U/F 32G X 4 MM BD Pen Needle Jessica U/F 32G X 4 MM 09/17/2019 12:00:00 AM EDT active BD Pen N eedle Jessica U/F 32G X 4 MM [facility]CW1 [facility]) BD Pen Needle Jessica U/F 32G X 4 MM BD Pen Needle Jessica U/F 32G X 4 MM 09/17/2019 12:00:00 AM EDT active BD Pen N eedle Jessica U/F 32G X 4 MM [facility]CW1 [facility]) BD Pen Needle Jessica U/F 32G X 4 MM BD Pen Needle Jessica U/F 32G X 4 MM 09/17/2019 12:00:00 AM EDT active BD Pen N eedle Jessica U/F 32G X 4 MM [facility]CW1 [facility]) BD Pen Needle Jessica U/F 32G X 4 MM BD Pen Needle Jsesica U/F 32G X 4 MM 09/17/2019 12:00:00 AM EDT active BD Pen N eedle Jessica U/F 32G X 4 MM [facility]CW1 [facility]) BD Pen Needle Jessica U/F 32G X 4 MM BD Pen Needle Jessica U/F 32G X 4 MM 09/17/2019 12:00:00 AM EDT active BD Pen N eedle Jessica U/F 32G X 4 MM eCW1 [facility]) BD Pen Needle Jessica U/F 32G X 4 MM BD Pen Needle Jessica U/F 32G X 4 MM 09/17/2019 12:00:00 AM EDT active BD Pen N eedle Jessica U/F 32G X 4 MM eCW1 [facility]) BD Pen Needle Jessica U/F 32G X 4 MM BD Pen Needle Jessica U/F 32G X 4 MM 09/17/2019 12:00:00 AM EDT active BD Pen N eedle Jessica U/F 32G X 4 MM [facility]CW1 [facility]) BD Pen Needle Jessica U/F 32G X 4 MM BD Pen Needle Jessica U/F 32G X 4 MM 09/17/2019 12:00:00 AM EDT active BD Pen N eedle Jessica U/F 32G X 4 MM eCW1 [facility]) BD Pen Needle Jessica U/F 32G X 4 MM BD Pen Needle Jessica U/F 32G X 4 MM 09/17/2019 12:00:00 AM EDT active BD Pen N eedle Jessica U/F 32G X 4 MM eCW1 [facility]) BD Pen Needle Jessica U/F 32G X 4 MM BD Pen Needle Jessica U/F 32G X 4 MM 09/17/2019 12:00:00 AM EDT active BD Pen N eedle Jessica U/F 32G X 4 MM eCW1 ([facility]) Chantix Starting Month Juan Miguel Chantix Starting Month Juan Miguel 2019 12:00:00 AM EDT completed [facility] ([facility]) 14 ACTUAT fluticasone furoate 0.1 MG/ACTUAT Dry Powder Inhaler [Arnuity] Arnuity Ellipta 08/23/2019 12:00:00 AM EDT RESPIRATORY active [facility] ([facility]) 25 mg 08/14/2019 12:00:00 AM EDT tablet 30 TAKE ONE TABLET BY MOUTH EVERY DAY NEEDED TAKE ONE TABLET BY MOUTH EVERY DAY NEEDED SOLD: 08/14/2019 [facility] pantoprazole 40 MG Delayed Release Oral Tablet [Proton ix] Protonix 40 MG Protonix 40 MG 08/13/2019 12:00:00 AM EDT 1.0 {tablet} active Protonix 40 MG [facility]CW1 [facility] sildenafil 25 MG Oral Tablet [Viagra] Viagra 25 MG Viagra 25 MG 08/13/2019 12:00:00 AM EDT 1.0 {tablet_as_needed} active Viagra 25 MG eCW1 ([facility]) sildenafil 25 MG Oral Tablet [Viagra] Viagra 25 MG Viagra 25 MG 08/13/2019 12:00:00 AM EDT 1.0 {tablet_as_needed} active Viagra 25 MG eCW1 ([facility]) sildenafil 25 MG Oral Tablet [Viagra] Viagra 25 MG Viagra 25 MG 08/13/2019 12:00:00 AM EDT 1.0 {tablet_as_needed} active Viagra 25 MG eCW1 ([facility]) pantoprazole 40 MG Delayed Release Oral Tablet [Proton ix] Protonix 40 MG Protonix 40 MG 08/13/2019 12:00:00 AM EDT 1.0 {tablet} active Protonix 40 MG eCW1 ([facility]) pantoprazole 40 MG Delayed Release Oral Tablet [Proton ix] Protonix 40 MG Protonix 40 MG 08/13/2019 12:00:00 AM EDT 1.0 {tablet} active Protonix 40 MG eCW1 ([facility]) pantoprazole 40 MG Delayed Release Oral Tablet [Proton ix] Protonix 40 MG Protonix 40 MG 08/13/2019 12:00:00 AM EDT 1.0 {tablet} active Protonix 40 MG eCW1 ([facility]) Tamsulosin hydrochloride 0.4 MG Oral Capsule [Flomax] Flomax 0.4 MG Flomax 0.4 MG 08/13/2019 12:00:00 AM EDT 1.0 {capsule} active Flomax 0.4 MG eCW1 ([facility]) Tamsulosin hydrochloride 0.4 MG Oral Capsule [Flomax] Flomax 0.4 MG Flomax 0.4 MG 08/13/2019 12:00:00 AM EDT 1.0 {capsule} active Flomax 0.4 MG eCW1 ([facility]) sildenafil 25 MG Oral Tablet [Viagra] Viagra 25 MG Viagra 25 MG 08/13/2019 12:00:00 AM EDT 1.0 {tablet_as_needed} active Viagra 25 MG eCW1 ([facility]) Tamsulosin hydrochloride 0.4 MG Oral Capsule [Flomax] Flomax 0.4 MG Flomax 0.4 MG 08/13/2019 12:00:00 AM EDT 1.0 {capsule} active Flomax 0.4 MG eCW1 ([facility]) Tamsulosin hydrochloride 0.4 MG Oral Capsule [Flomax] Flomax 0.4 MG Flomax 0.4 MG 08/13/2019 12:00:00 AM EDT 1.0 {capsule} active Flomax 0.4 MG eCW1 ([facility]) Ergocalciferol 24925 UNT Oral Capsule Ergocalciferol 1 .25 MG (39181 UT) Ergocalciferol 1.25 MG (65640 UT) 06/18/2019 12:00:00 AM EDT 1.0 {c apsule} active Ergocalciferol 1.25 MG (5 0000 UT) eCW1 ([facility]) canagliflozin 100 MG Oral Tablet [Invokana] Invokana 100 MG Invokana 100 MG 06/18/2019 12:00:00 AM EDT active Invokana 100 MG eCW1 ([facility]) canagliflozin 100 MG Oral Tablet [Invokana] Invokana 100 MG Invokana 100 MG 06/18/2019 12:00:00 AM EDT active Invokana 100 MG eCW1 ([facility]) canagliflozin 100 MG Oral Tablet [Invokana] Invokana 100 MG Invokana 100 MG 06/18/2019 12:00:00 AM EDT active Invokana 100 MG eCW1 ([facility]) canagliflozin 100 MG Oral Tablet [Invokana] Invokana 100 MG Invokana 100 MG 06/18/2019 12:00:00 AM EDT active Invokana 100 MG eCW1 ([facility]) canagliflozin 100 MG Oral Tablet [Invokana] Invokana 100 MG Invokana 100 MG 06/18/2019 12:00:00 AM EDT active Invokana 100 MG eCW1 ([facility]) canagliflozin 100 MG Oral Tablet [Invokana] Invokana 100 MG Invokana 100 MG 06/18/2019 12:00:00 AM EDT active Invokana 100 MG eCW1 ([facility]) canagliflozin 100 MG Oral Tablet [Invokana] Invokana 100 MG Invokana 100 MG 06/18/2019 12:00:00 AM EDT active Invokana 100 MG eCW1 ([facility]) Ergocalciferol 71580 UNT Oral Capsule Ergocalciferol 1 .25 MG (73498 UT) Ergocalciferol 1.25 MG (26260 UT) 06/18/2019 12:00:00 AM EDT 1.0 {c apsule} active Ergocalciferol 1.25 MG (5 0000 UT) eCW1 ([facility]) Ergocalciferol 17994 UNT Oral Capsule Ergocalciferol 1 .25 MG (94779 UT) Ergocalciferol 1.25 MG (80363 UT) 06/18/2019 12:00:00 AM EDT 1.0 {c apsule} active Ergocalciferol 1.25 MG (5 0000 UT) eCW1 ([facility]) Ergocalciferol 91098 UNT Oral Capsule Ergocalciferol 1 .25 MG (07995 UT) Ergocalciferol 1.25 MG (66073 UT) 06/18/2019 12:00:00 AM EDT 1.0 {c apsule} active Ergocalciferol 1.25 MG (5 0000 UT) eCW1 ([facility]) canagliflozin 100 MG Oral Tablet [Invokana] Invokana 100 MG Invokana 100 MG 06/18/2019 12:00:00 AM EDT active Invokana 100 MG eCW1 ([facility]) canagliflozin 100 MG Oral Tablet [Invokana] Invokana 100 MG Invokana 100 MG 06/18/2019 12:00:00 AM EDT active Invokana 100 MG eCW1 ([facility]) Ergocalciferol 36401 UNT Oral Capsule Ergocalciferol 1 .25 MG (13873 UT) Ergocalciferol 1.25 MG (79856 UT) 06/18/2019 12:00:00 AM EDT 1.0 {c apsule} active Ergocalciferol 1.25 MG (5 0000 UT) eCW1 ([facility]) Ergocalciferol 72049 UNT Oral Capsule Ergocalciferol 1 .25 MG (06767 UT) Ergocalciferol 1.25 MG (33036 UT) 06/18/2019 12:00:00 AM EDT 1.0 {c apsule} active Ergocalciferol 1.25 MG (5 0000 UT) eCW1 ([facility]) Ergocalciferol 45675 UNT Oral Capsule Ergocalciferol 1 .25 MG (44380 UT) Ergocalciferol 1.25 MG (96832 UT) 06/18/2019 12:00:00 AM EDT 1.0 {c apsule} active Ergocalciferol 1.25 MG (5 0000 UT) eCW1 ([facility]) Ergocalciferol 35787 UNT Oral Capsule Ergocalciferol 1 .25 MG (72124 UT) Ergocalciferol 1.25 MG (92861 UT) 06/18/2019 12:00:00 AM EDT 1.0 {c apsule} active Ergocalciferol 1.25 MG (5 0000 UT) eCW1 ([facility]) canagliflozin 100 MG Oral Tablet [Invokana] Invokana 100 MG Invokana 100 MG 06/18/2019 12:00:00 AM EDT active Invokana 100 MG eCW1 ([facility]) Ergocalciferol 59054 UNT Oral Capsule Ergocalciferol 1 .25 MG (98883 UT) Ergocalciferol 1.25 MG (70018 UT) 06/18/2019 12:00:00 AM EDT 1.0 {c apsule} active Ergocalciferol 1.25 MG (5 0000 UT) eCW1 ([facility]) canagliflozin 100 MG Oral Tablet [Invokana] Invokana 100 MG Invokana 100 MG 06/18/2019 12:00:00 AM EDT active Invokana 100 MG eCW1 ([facility]) Ergocalciferol 14807 UNT Oral Capsule Ergocalciferol 1 .25 MG (32033 UT) Ergocalciferol 1.25 MG (52835 UT) 06/18/2019 12:00:00 AM EDT 1.0 {c apsule} active Ergocalciferol 1.25 MG (5 0000 UT) eCW1 ([facility]) Ergocalciferol 40842 UNT Oral Capsule Ergocalciferol 1 .25 MG (67140 UT) Ergocalciferol 1.25 MG (02336 UT) 06/18/2019 12:00:00 AM EDT 1.0 {c apsule} active Ergocalciferol 1.25 MG (5 0000 UT) eCW1 ([facility]) Ergocalciferol 23310 UNT Oral Capsule Ergocalciferol 1 .25 MG (81914 UT) Ergocalciferol 1.25 MG (88303 UT) 06/18/2019 12:00:00 AM EDT 1.0 {c apsule} active Ergocalciferol 1.25 MG (5 0000 UT) eCW1 ([facility]) canagliflozin 100 MG Oral Tablet [Invokana] Invokana 100 MG Invokana 100 MG 06/18/2019 12:00:00 AM EDT active Invokana 100 MG eCW1 ([facility]) canagliflozin 100 MG Oral Tablet [Invokana] Invokana 100 MG Invokana 100 MG 06/18/2019 12:00:00 AM EDT active Invokana 100 MG eCW1 ([facility]) Ergocalciferol 15429 UNT Oral Capsule Ergocalciferol 1 .25 MG (29994 UT) Ergocalciferol 1.25 MG (79331 UT) 06/18/2019 12:00:00 AM EDT 1.0 {c apsule} active Ergocalciferol 1.25 MG (5 0000 UT) eCW1 ([facility]) Ergocalciferol 28855 UNT Oral Capsule Ergocalciferol 1 .25 MG (04079 UT) Ergocalciferol 1.25 MG (02280 UT) 06/18/2019 12:00:00 AM EDT 1.0 {c apsule} active Ergocalciferol 1.25 MG (5 0000 UT) eCW1 ([facility]) Ergocalciferol 55015 UNT Oral Capsule Ergocalciferol 1 .25 MG (68827 UT) Ergocalciferol 1.25 MG (36717 UT) 06/18/2019 12:00:00 AM EDT 1.0 {c apsule} active Ergocalciferol 1.25 MG (5 0000 UT) eCW1 ([facility]) Ergocalciferol 89140 UNT Oral Capsule Ergocalciferol 1 .25 MG (83125 UT) Ergocalciferol 1.25 MG (44841 UT) 06/18/2019 12:00:00 AM EDT 1.0 {c apsule} active Ergocalciferol 1.25 MG (5 0000 UT) eCW1 ([facility]) Ergocalciferol 87591 UNT Oral Capsule Ergocalciferol 1 .25 MG (43213 UT) Ergocalciferol 1.25 MG (63192 UT) 06/18/2019 12:00:00 AM EDT 1.0 {c apsule} active Ergocalciferol 1.25 MG (5 0000 UT) eCW1 ([facility]) canagliflozin 100 MG Oral Tablet [Invokana] Invokana 100 MG Invokana 100 MG 06/18/2019 12:00:00 AM EDT active Invokana 100 MG eCW1 ([facility]) Ergocalciferol 51979 UNT Oral Capsule Ergocalciferol 1 .25 MG (07336 UT) Ergocalciferol 1.25 MG (86292 UT) 06/18/2019 12:00:00 AM EDT 1.0 {c apsule} active Ergocalciferol 1.25 MG (5 0000 UT) eCW1 ([facility]) canagliflozin 100 MG Oral Tablet [Invokana] Invokana 100 MG Invokana 100 MG 06/18/2019 12:00:00 AM EDT active Invokana 100 MG eCW1 ([facility]) Ergocalciferol 55535 UNT Oral Capsule Ergocalciferol 1 .25 MG (92234 UT) Ergocalciferol 1.25 MG (50568 UT) 06/18/2019 12:00:00 AM EDT 1.0 {c apsule} active Ergocalciferol 1.25 MG (5 0000 UT) eCW1 ([facility]) canagliflozin 100 MG Oral Tablet [Invokana] Invokana 100 MG Invokana 100 MG 06/18/2019 12:00:00 AM EDT active Invokana 100 MG eCW1 ([facility]) Ergocalciferol 21285 UNT Oral Capsule Ergocalciferol 1 .25 MG (93793 UT) Ergocalciferol 1.25 MG (41082 UT) 06/18/2019 12:00:00 AM EDT 1.0 {c apsule} active Ergocalciferol 1.25 MG (5 0000 UT) eCW1 ([facility]) canagliflozin 100 MG Oral Tablet [Invokana] Invokana 100 MG Invokana 100 MG 06/18/2019 12:00:00 AM EDT active Invokana 100 MG eCW1 ([facility]) canagliflozin 100 MG Oral Tablet [Invokana] Invokana 100 MG Invokana 100 MG 06/18/2019 12:00:00 AM EDT active Invokana 100 MG eCW1 ([facility]) canagliflozin 100 MG Oral Tablet [Invokana] Invokana 100 MG Invokana 100 MG 06/18/2019 12:00:00 AM EDT active Invokana 100 MG eCW1 ([facility]) Ergocalciferol 07952 UNT Oral Capsule Ergocalciferol 1 .25 MG (83905 UT) Ergocalciferol 1.25 MG (86425 UT) 06/18/2019 12:00:00 AM EDT 1.0 {c apsule} active Ergocalciferol 1.25 MG (5 0000 UT) eCW1 ([facility]) canagliflozin 100 MG Oral Tablet [Invokana] Invokana 100 MG Invokana 100 MG 06/18/2019 12:00:00 AM EDT active Invokana 100 MG eCW1 ([facility]) Ergocalciferol 48983 UNT Oral Capsule Ergocalciferol 1 .25 MG (16350 UT) Ergocalciferol 1.25 MG (84119 UT) 06/18/2019 12:00:00 AM EDT 1.0 {c apsule} active Ergocalciferol 1.25 MG (5 0000 UT) eCW1 ([facility]) Ergocalciferol 25974 UNT Oral Capsule Ergocalciferol 1 .25 MG (35807 UT) Ergocalciferol 1.25 MG (08682 UT) 06/18/2019 12:00:00 AM EDT 1.0 {c apsule} active Ergocalciferol 1.25 MG (5 0000 UT) eCW1 ([facility]) canagliflozin 100 MG Oral Tablet [Invokana] Invokana 100 MG Invokana 100 MG 06/18/2019 12:00:00 AM EDT active Invokana 100 MG eCW1 ([facility]) Ergocalciferol 25067 UNT Oral Capsule Ergocalciferol 1 .25 MG (42624 UT) Ergocalciferol 1.25 MG (12642 UT) 06/18/2019 12:00:00 AM EDT 1.0 {c apsule} active Ergocalciferol 1.25 MG (5 0000 UT) eCW1 ([facility]) canagliflozin 100 MG Oral Tablet [Invokana] Invokana 100 MG Invokana 100 MG 06/18/2019 12:00:00 AM EDT active Invokana 100 MG eCW1 ([facility]) Ergocalciferol 29455 UNT Oral Capsule Ergocalciferol 1 .25 MG (34316 UT) Ergocalciferol 1.25 MG (75073 UT) 06/18/2019 12:00:00 AM EDT 1.0 {c apsule} active Ergocalciferol 1.25 MG (5 0000 UT) eCW1 ([facility]) Ergocalciferol 19026 UNT Oral Capsule Ergocalciferol 1 .25 MG (09034 UT) Ergocalciferol 1.25 MG (12457 UT) 06/18/2019 12:00:00 AM EDT 1.0 {c apsule} active Ergocalciferol 1.25 MG (5 0000 UT) eCW1 ([facility]) canagliflozin 100 MG Oral Tablet [Invokana] Invokana 100 MG Invokana 100 MG 06/18/2019 12:00:00 AM EDT active Invokana 100 MG eCW1 ([facility]) Ergocalciferol 39676 UNT Oral Capsule Ergocalciferol 1 .25 MG (98881 UT) Ergocalciferol 1.25 MG (14026 UT) 06/18/2019 12:00:00 AM EDT 1.0 {c apsule} active Ergocalciferol 1.25 MG (5 0000 UT) eCW1 ([facility]) Ergocalciferol 09371 UNT Oral Capsule Ergocalciferol 1 .25 MG (98638 UT) Ergocalciferol 1.25 MG (12287 UT) 06/18/2019 12:00:00 AM EDT 1.0 {c apsule} active Ergocalciferol 1.25 MG (5 0000 UT) eCW1 ([facility]) canagliflozin 100 MG Oral Tablet [Invokana] Invokana 100 MG Invokana 100 MG 06/18/2019 12:00:00 AM EDT active Invokana 100 MG eCW1 ([facility]) Ergocalciferol 93212 UNT Oral Capsule Ergocalciferol 1 .25 MG (92534 UT) Ergocalciferol 1.25 MG (55608 UT) 06/18/2019 12:00:00 AM EDT 1.0 {c apsule} active Ergocalciferol 1.25 MG (5 0000 UT) eCW1 ([facility]) Ergocalciferol 33050 UNT Oral Capsule Ergocalciferol 1 .25 MG (75817 UT) Ergocalciferol 1.25 MG (67579 UT) 06/18/2019 12:00:00 AM EDT 1.0 {c apsule} active Ergocalciferol 1.25 MG (5 0000 UT) eCW1 ([facility]) canagliflozin 100 MG Oral Tablet [Invokana] Invokana 100 MG Invokana 100 MG 06/18/2019 12:00:00 AM EDT active Invokana 100 MG eCW1 ([facility]) canagliflozin 100 MG Oral Tablet [Invokana] Invokana 100 MG Invokana 100 MG 06/18/2019 12:00:00 AM EDT active Invokana 100 MG eCW1 ([facility]) Ergocalciferol 26648 UNT Oral Capsule Ergocalciferol 1 .25 MG (15987 UT) Ergocalciferol 1.25 MG (78284 UT) 06/18/2019 12:00:00 AM EDT 1.0 {c apsule} active Ergocalciferol 1.25 MG (5 0000 UT) eCW1 ([facility]) canagliflozin 100 MG Oral Tablet [Invokana] Invokana 100 MG Invokana 100 MG 06/18/2019 12:00:00 AM EDT active Invokana 100 MG eCW1 ([facility]) canagliflozin 100 MG Oral Tablet [Invokana] Invokana 100 MG Invokana 100 MG 06/18/2019 12:00:00 AM EDT active Invokana 100 MG eCW1 ([facility]) Ergocalciferol 50385 UNT Oral Capsule Ergocalciferol 1 .25 MG (52287 UT) Ergocalciferol 1.25 MG (50110 UT) 06/18/2019 12:00:00 AM EDT 1.0 {c apsule} active Ergocalciferol 1.25 MG (5 0000 UT) eCW1 ([facility]) Ergocalciferol 25486 UNT Oral Capsule Ergocalciferol 1 .25 MG (79866 UT) Ergocalciferol 1.25 MG (55533 UT) 06/18/2019 12:00:00 AM EDT 1.0 {c apsule} active Ergocalciferol 1.25 MG (5 0000 UT) [facility] Ergocalciferol 49995 UNT Oral Capsule Ergocalciferol 1 .25 MG (31622 UT) Ergocalciferol 1.25 MG (07570 UT) 06/18/2019 12:00:00 AM EDT 1.0 {c apsule} active Ergocalciferol 1.25 MG (5 0000 UT) eCW1 [facility]) Ergocalciferol 69565 UNT Oral Capsule Ergocalciferol 1 .25 MG (83340 UT) Ergocalciferol 1.25 MG (37082 UT) 06/18/2019 12:00:00 AM EDT 1.0 {c apsule} active Ergocalciferol 1.25 MG (5 0000 UT) eCW1 [facility]) Ergocalciferol 18269 UNT Oral Capsule Ergocalciferol 1 .25 MG (48018 UT) Ergocalciferol 1.25 MG (96140 UT) 06/18/2019 12:00:00 AM EDT 1.0 {c apsule} active Ergocalciferol 1.25 MG (5 0000 UT) eCW1 [facility]) canagliflozin 100 MG Oral Tablet [Invokana] Invokana 100 MG Invokana 100 MG 06/18/2019 12:00:00 AM EDT active Invokana 100 MG eCW1 ([facility]) canagliflozin 100 MG Oral Tablet [Invokana] Invokana 100 MG Invokana 100 MG 06/18/2019 12:00:00 AM EDT active Invokana 100 MG eCW1 ([facility]) canagliflozin 100 MG Oral Tablet [Invokana] Invokana 100 MG Invokana 100 MG 06/18/2019 12:00:00 AM EDT active Invokana 100 MG eCW1 [facility]) canagliflozin 100 MG Oral Tablet [Invokana] Invokana 100 MG Invokana 100 MG 06/18/2019 12:00:00 AM EDT active Invokana 100 MG eCW1 ([facility]) canagliflozin 100 MG Oral Tablet [Invokana] Invokana 100 MG Invokana 100 MG 06/18/2019 12:00:00 AM EDT active Invokana 100 MG eCW1 ([facility]) canagliflozin 100 MG Oral Tablet [Invokana] Invokana 100 MG Invokana 100 MG 06/18/2019 12:00:00 AM EDT active Invokana 100 MG eCW1 [facility]) Ergocalciferol 60344 UNT Oral Capsule Ergocalciferol 1 .25 MG (21183 UT) Ergocalciferol 1.25 MG (64269 UT) 06/18/2019 12:00:00 AM EDT 1.0 {c apsule} active Ergocalciferol 1.25 MG (5 0000 UT) eCW1 ([facility]) canagliflozin 100 MG Oral Tablet [Invokana] Invokana 100 MG Invokana 100 MG 06/18/2019 12:00:00 AM EDT active Invokana 100 MG eCW1 ([facility]) canagliflozin 100 MG Oral Tablet [Invokana] Invokana 100 MG Invokana 100 MG 06/18/2019 12:00:00 AM EDT active Invokana 100 MG eCW1 [facility]) canagliflozin 100 MG Oral Tablet [Invokana] Invokana 100 MG Invokana 100 MG 06/18/2019 12:00:00 AM EDT active Invokana 100 MG eCW1 [facility]) Ergocalciferol 07596 UNT Oral Capsule Ergocalciferol 1 .25 MG (94297 UT) Ergocalciferol 1.25 MG (90037 UT) 06/18/2019 12:00:00 AM EDT 1.0 {c apsule} active Ergocalciferol 1.25 MG (5 0000 UT) eCW1 [facility]) Ergocalciferol 19622 UNT Oral Capsule Ergocalciferol 1 .25 MG (73695 UT) Ergocalciferol 1.25 MG (84490 UT) 06/18/2019 12:00:00 AM EDT 1.0 {c apsule} active Ergocalciferol 1.25 MG (5 0000 UT) eCW1 [facility]) canagliflozin 100 MG Oral Tablet [Invokana] Invokana 100 MG Invokana 100 MG 06/18/2019 12:00:00 AM EDT active Invokana 100 MG eCW1 [facility]) canagliflozin 100 MG Oral Tablet [Invokana] Invokana 100 MG Invokana 100 MG 06/18/2019 12:00:00 AM EDT active Invokana 100 MG eCW1 ([facility]) empagliflozin 10 MG Oral Tablet [Jardiance] Jardiance 10 MG Jardiance 10 MG 06/18/2019 12:00:00 AM EDT 1.0 {tablet} active Jardiance 10 MG eCW1 ([facility]) canagliflozin 100 MG Oral Tablet [Invokana] Invokana 100 MG Invokana 100 MG 06/18/2019 12:00:00 AM EDT active Invokana 100 MG eCW1 ([facility]) Ergocalciferol 26973 UNT Oral Capsule Ergocalciferol 1 .25 MG (07451 UT) Ergocalciferol 1.25 MG (59317 UT) 06/18/2019 12:00:00 AM EDT 1.0 {c apsule} active Ergocalciferol 1.25 MG (5 0000 UT) eCW1 [facility]) gabapentin 400 MG Oral Capsule Gabapentin 400 MG Gabapentin 400 MG 05/18/2019 12:00:00 AM EST 1.0 {capsule} active G abapentin 400 MG eCW1 ([facility]) gabapentin 400 MG Oral Capsule Gabapentin 400 MG Gabapentin 400 MG 05/18/2019 12:00:00 AM EST 1.0 {capsule} active G abapentin 400 MG eCW1 ([facility]) gabapentin 400 MG Oral Capsule Gabapentin 400 MG Gabapentin 400 MG 05/18/2019 12:00:00 AM EST 1.0 {capsule} active G abapentin 400 MG eCW1 ([facility]) gabapentin 400 MG Oral Capsule Gabapentin 400 MG Gabapentin 400 MG 05/18/2019 12:00:00 AM EST active 1 capsul e eCW1 ([facility]) gabapentin 400 MG Oral Capsule Gabapentin 400 MG Gabapentin 400 MG 05/18/2019 12:00:00 AM EST 1.0 {capsule} active G abapentin 400 MG eCW1 ([facility]) gabapentin 400 MG Oral Capsule Gabapentin 400 MG Gabapentin 400 MG 05/18/2019 12:00:00 AM EST active 1 capsul e eCW1 ([facility]) Basaglar Kwikpen Basaglar Kwikpen 04/24/2019 12:00:00 AM EST active MEDENT ([facility] Basaglar KwikPen 100 UNIT/ML Basaglar KwikPen 100 UNIT/ML 12:00:00 AM EST active Basaglar KwikPen 100 UNIT/ML eCW1 [facility]) Basaglar KwikPen 100 UNIT/ML Basaglar KwikPen 100 UNIT/ML 12:00:00 AM EST active 60 units eCW1 ([facility]) Basaglar KwikPen 100 UNIT/ML Basaglar KwikPen 100 UNIT/ML 12:00:00 AM EST active Basaglar KwikPen 100 UNIT/ML eCW1 [facility]) Basaglar KwikPen 100 UNIT/ML Basaglar KwikPen 100 UNIT/ML 12:00:00 AM EST active Basaglar KwikPen 100 UNIT/ML eCW1 [facility]) Basaglar KwikPen 100 UNIT/ML Basaglar KwikPen 100 UNIT/ML 12:00:00 AM EST active Basaglar KwikPen 100 UNIT/ML eCW1 [facility]) Basaglar KwikPen 100 UNIT/ML Basaglar KwikPen 100 UNIT/ML 12:00:00 AM EST active Basaglar KwikPen 100 UNIT/ML eCW1 [facility]) Basaglar KwikPen 100 UNIT/ML Basaglar KwikPen 100 UNIT/ML 12:00:00 AM EST active 60 units eCW1 ([facility]) Basaglar KwikPen 100 UNIT/ML Basaglar KwikPen 100 UNIT/ML 12:00:00 AM EST active Basaglar KwikPen 100 UNIT/ML eCW1 [facility]) Basaglar KwikPen 100 UNIT/ML Basaglar KwikPen 100 UNIT/ML 12:00:00 AM EST active Basaglar KwikPen 100 UNIT/ML eCW1 [facility]) Basaglar KwikPen 100 UNIT/ML Basaglar KwikPen 100 UNIT/ML 12:00:00 AM EST active 60 units eCW1 ([facility]) Basaglar KwikPen 100 UNIT/ML Basaglar KwikPen 100 UNIT/ML 12:00:00 AM EST active Basaglar KwikPen 100 UNIT/ML eCW1 [facility]) Basaglar KwikPen 100 UNIT/ML Basaglar KwikPen 100 UNIT/ML 12:00:00 AM EST active Basaglar KwikPen 100 UNIT/ML eCW1 [facility]) Basaglar KwikPen 100 UNIT/ML Basaglar KwikPen 100 UNIT/ML 12:00:00 AM EST active Basaglar KwikPen 100 UNIT/ML eCW1 [facility]) Basaglar KwikPen 100 UNIT/ML Basaglar KwikPen 100 UNIT/ML 12:00:00 AM EST active Basaglar KwikPen 100 UNIT/ML eCW1 [facility]) Basaglar KwikPen 100 UNIT/ML Basaglar KwikPen 100 UNIT/ML 12:00:00 AM EST active Basaglar KwikPen 100 UNIT/ML eCW1 [facility]) Basaglar KwikPen 100 UNIT/ML Basaglar KwikPen 100 UNIT/ML 12:00:00 AM EST active Basaglar KwikPen 100 UNIT/ML eCW1 [facility]) Basaglar KwikPen 100 UNIT/ML Basaglar KwikPen 100 UNIT/ML 12:00:00 AM EST active Basaglar KwikPen 100 UNIT/ML eCW1 [facility]) Basaglar KwikPen 100 UNIT/ML Basaglar KwikPen 100 UNIT/ML 12:00:00 AM EST active Basaglar KwikPen 100 UNIT/ML eCW1 [facility]) Basaglar KwikPen 100 UNIT/ML Basaglar KwikPen 100 UNIT/ML 12:00:00 AM EST active Basaglar KwikPen 100 UNIT/ML eCW1 [facility]) Basaglar KwikPen 100 UNIT/ML Basaglar KwikPen 100 UNIT/ML 12:00:00 AM EST active Basaglar KwikPen 100 UNIT/ML eCW1 [facility]) Basaglar KwikPen 100 UNIT/ML Basaglar KwikPen 100 UNIT/ML 12:00:00 AM EST active Basaglar KwikPen 100 UNIT/ML eCW1 [facility]) Basaglar KwikPen 100 UNIT/ML Basaglar KwikPen 100 UNIT/ML 12:00:00 AM EST active Basaglar KwikPen 100 UNIT/ML eCW1 [facility]) Basaglar KwikPen 100 UNIT/ML Basaglar KwikPen 100 UNIT/ML 12:00:00 AM EST active Basaglar KwikPen 100 UNIT/ML eCW1 [facility]) Basaglar KwikPen 100 UNIT/ML Basaglar KwikPen 100 UNIT/ML 12:00:00 AM EST active Basaglar KwikPen 100 UNIT/ML eCW1 [facility]) Trelegy Ellipta Trelegy Ellipta 11/29/2018 12:00:00 AM EDT RESPIRATORY completed [facility] ([facility] Tresiba Tresiba 11/29/2018 12:00:00 AM EDT complet ed [facility]ENT ([facility]) Insurance Providers Payer name Policy type / Coverage type Policy ID Covered alliance party ID Covered alliance party's relationship to cantrell Policy Cantrell Plan Information [facility] [id number] SP [id number] [facility] [id number] SP [id number] [facility] O [id number] S [id number] [facility] MEDICAID HMO -O/P [id number] 18 [id number] [facility] MEDICAID HMO -O/P [id number] 18 [id number] ANSI-Medicaid [id number] ANSI-Not a Secondary Insurance [id number] ANSI-Not a Secondary Insurance [id number] ANSI-Not a Secondary Insurance [id number] ANSI-Not a Secondary Insurance [id number] [id number] ANSI-Medicaid [id number] ANSI-Not a Secondary Insurance [id number] ANSI-Medicaid [id number] ANSI-Not a Secondary Insurance [id number] MVP Medicaid Health Maintenance Organization (HMO) [id number] Self [id number] [facility] [id number] 82 [id number] ANSI-Not a Secondary Insurance [id number] ANSI-Medicaid [id number] ANSI-Not a Secondary Insurance [id number] ANSI-Not a Secondary Insurance [id number] ANSI-Medicaid [id number] ANSI-Not a Secondary Insurance [id number] [id number]-[id number] ANSI-Not a Secondary Insurance [id number]-[id number] ANSI-Not a Secondary Insurance [id number] ANSI-Medicaid [id number] ANSI-Not a Secondary Insurance [id number] ANSI-Not a Secondary Insurance [id number] [id number] ANSI-Medicaid [id number] ANSI-Medicaid [id number] ANSI-Not a Secondary Insurance [id number] [id number] [id number]-[id number] ANSI-Not a Secondary Insurance [id number]-42v2-btr8-[id number] 99wt84l [id number]-l2xh-86l6-xps0-[id number] ANSI-Medicaid [id number] ANSI-Not a Secondary Insurance [id number] ANSI-Not a Secondary Insurance [id number]-3xn8-fu43-w1969 [id number] [id number]-3ux8-rl44-[id number] ANSI-Not a Secondary Insurance [id number]-s1on-yw7n2 kd24z5v [id number]-4f12-6236-d3gh-[id number] ANSI-Not a Secondary Insurance [id number]-[id number] 736cabf [id number]-7107-3sqi-[id number] ANSI-Medicaid [id number] ANSI-Medicaid [id number] ANSI-Not a Secondary Insurance [id number]-uv37-6p91-kq3u-itbq6 [id number] [id number]-js95-1v67-yj7t-[id number] ANSI-Not a Secondary Insurance [id number]-a2l8-6jt6-x426-8myw1 e039ze8 c99p1602-s4i1-4qr0-[id number] ANSI-Not a Secondary Insurance [id number]-06ed-28y0-10t0-m2283 [id number] w62rr90c-48bp-40k8-92w3-[id number] ANSI-Medicaid [id number] ANSI-Not a Secondary Insurance [id number]-046f-4du37 [id number] [id number]-661h-[id number] ANSI-Not a Secondary Insurance uf82inrt-t228-24c0-t0tu-5k21h kxmhx9q tg07rhjm-w491-00k3-y2qt-8n00ytoyvo5l ANSI-Medicaid [id number] ANSI-Not a Secondary Insurance sp228xi5-np4t-115l-qz44-b3b4l c328vhy ik676uc0-xg8d-672s-lt44-h9a5en908xut ANSI-Not a Secondary Insurance [id number]-s05e-40jf-1p4r-nd47b ts95cgf 678c451b-s30d-38dq-5u0e-ge99tlr94cdj ANSI-Not a Secondary Insurance [id number]-8k07-8v7rz [id number] [id number]-[id number] ANSI-Medicaid [id number] ANSI-Medicaid [id number]-[id number] ANSI-Not a Secondary Insurance lajtl5k7-25t3-8g3c-v712-e7a2e 92bedaa cflke3b1-01d2-2d5w-w848-s7j0e52jwxca ANSI-Not a Secondary Insurance [id number]-5og5-7269-u4kp-5t38n r1p550r [id number]-5il0-3085-t2td-6a91ry8v390w ANSI-Not a Secondary Insurance [id number]-1w59-23r5-5j04-y4p6j [id number] 01x196mt-6g34-32j7-6z94-i8p8llk967e1 ANSI-Medicaid [id number] ANSI-Not a Secondary Insurance i15fvnuc-2dr2-5cz1-l412-1x14l gx56fr8 l14ygfvi-6fp5-6hz1-x403-8z44ctl37jo8 ANSI-Not a Secondary Insurance [id number]-t2n2-15g3-6110-da30s 4k1xaz8 [id number]-j4f5-26q5-4205-iz77t6x1lsl5 ANSI-Not a Secondary Insurance 97ktre00-8gt8-13t8-90p0-86f67 [id number] [id number] ANSI-Medicaid [id number] ANSI-Medicaid [id number] ANSI-Not a Secondary Insurance [id number]-w453-690x7 [id number]-45o7-[id number] ANSI-Not a Secondary Insurance [id number]-jq5o-91571 [id number] [id number]-rl2v-[id number] ANSI-Not a Secondary Insurance 90f09ojo-236v-169l-arox-27s54 [id number] 22e70qjm-405f-444m-cbom-[id number] ANSI-Medicaid [id number] ANSI-Not a Secondary Insurance [id number]-f115-6x7c-o030-9l356 [id number] [id number]-p264-3n6l-[id number] ANSI-Not a Secondary Insurance [id number]-053r-hz7l-75908 [id number] 9t1302ig-048q-447x-kk6m-[id number] ANSI-Not a Secondary Insurance [id number]-03q2-16it-1z253 [id number]-61hb-10j5-74op-[id number] ANSI-Medicaid [id number] ANSI-Not a Secondary Insurance [id number]-97t2-e46h-8i930 0o11f9z [id number]-u96w-20j7-y15i-[id number] ANSI-Not a Secondary Insurance [id number]-op2u-3vr0-g386-eqb4l 79p21v6 [id number]-yo5f-3sg4-h867-ucg8f88v55l2 ANSI-Medicaid [id number] ANSI-Medicaid [id number] ANSI-Not a Secondary Insurance 380x0pp6-2b41-934i-s674-yi9ef [id number]-x048-[id number] ANSI-Not a Secondary Insurance [id number]-8u6e-21b0-k9o3-0x375 bv33g2d 45755r7z-9w8n-96o4-q9s4-6i527dt71c0d ANSI-Not a Secondary Insurance [id number]-7877-71l4-9z20-64453 [id number]-[id number] ANSI-Not a Secondary Insurance [id number]-ixqs-45h15 [id number]-[id number] ANSI-Medicaid [id number] ANSI-Not a Secondary Insurance [id number]-ws90-tw776 [id number]-zw40-cl174uxt081t ANSI-Not a Secondary Insurance [id number]-1whew [id number]-[id number] ANSI-Medicaid [id number] ANSI-Not a Secondary Insurance [id number]-8139-kl22-nyt30 154g1lc [id number]-4979-ge64-[id number] ANSI-Medicaid [id number] ANSI-Not a Secondary Insurance [id number]-32j7-[id number] 21aecea [id number]-07y4-s564i33prfxe ANSI-Not a Secondary Insurance [id number]-07f7-173sz [id number]-[id number] ANSI-Not a Secondary Insurance [id number]-u5v1-0sk84 [id number] [id number]-jg7x-6857-[id number] ANSI-Medicaid [id number] ANSI-Not a Secondary Insurance [id number]-[id number] [id number]-4949-269w-[id number] ANSI-Medicaid [id number] ANSI-Not a Secondary Insurance [id number]-ff4tg [id number]-b3hk-292p-5150-[id number] ANSI-Not a Secondary Insurance [id number]-40p2-92er-ev0k5 b6qwr69 9sio7154-490v-96m9-74yo-kq5s0h4qav03 ANSI-Not a Secondary Insurance [id number]-[id number]-k969-2343-[id number] ANSI-Medicaid [id number] ANSI-Not a Secondary Insurance [id number]-j0v7-84qx9 [id number]-dk69-9qc8-[id number] ANSI-Medicaid [id number] ANSI-Not a Secondary Insurance [id number]-94bak [id number]-[id number] ANSI-Not a Secondary Insurance [id number]-4189-7bb2-780b-l5xuc [id number]-1667-7ry0-813f-[id number] ANSI-Medicaid [id number] ANSI-Not a Secondary Insurance [id number]-9808-5g50y ts8s2g3 [id number]-2193-3h88jen5c3m6 ANSI-Medicaid [id number] ANSI-Not a Secondary Insurance [id number]-ik23-07tk-qo4h-sx275 154g029 [id number]-ro74-92xi-[id number] ANSI-Medicaid [id number] ANSI-Not a Secondary Insurance [id number]-6o11-8294-c7nv-86494 [id number] [id number]-4f14-3699-[id number] [facility] [id number] ANSI-Medicaid [id number] ANSI-Not a Secondary Insurance [id number]-81a66 [id number]-39c64h0509p4 ANSI-Not a Secondary Insurance [id number]-y331-48q3-rdi0-901i2 ez6w810 [id number]-g180-20x1-oyo7-635b8qe4f241 ANSI-Medicaid [id number] ANSI-Medicaid [id number] ANSI-Not a Secondary Insurance -1297-19t7-140i-7u017 [id number] rbfiol61-1002-68u4-419s-[id number] ANSI-Not a Secondary Insurance v86jsnw8-p571-0o59-r63k-8683j 5qou8fv e84ysgw8-m289-8x45-j88n-8553q9qlg6rm ANSI-Medicaid [id number] ANSI-Medicaid [id number] ANSI-Not a Secondary Insurance [id number]-3px1-3c4f-k5vm-0pu03 bcs2o8h 589m5vho-1dt0-7d5z-i9rp-5kp73rnk8j4v ANSI-Medicaid [id number] ANSI-Not a Secondary Insurance [id number]-22i3-67mn-cur8-2x665 [id number] 5z44m24z-30y8-90wd-[id number] ANSI-Medicaid [id number]-[id number] ANSI-Not a Secondary Insurance 14vreg73-8go2-72y0-s5g7-261s6 [id number] 88rukc14-7zj6-93u5-[id number] [facility] Medicaid Commercial [id number] Self [id number] ANSI-Not a Secondary Insurance [id number]-[id number] [id number]-[id number] ANSI-Medicaid [id number] ANSI-Not a Secondary Insurance [id number]-yzjg-682s-1o1i-90sh1 2h015b6 3b9r27n0-pdie-886v-3y3u-[id number] ANSI-Medicaid [id number]-u4kp-[id number] ANSI-Not a Secondary Insurance [id number]g227 [id number] ANSI-Medicaid [id number] ANSI-Not a Secondary Insurance [id number]-0917-f53q-6a36b [id number] 61b931s6-605v-4581-y93y-7m77t4f1nf86 ANSI-Medicaid [id number]-[id number] ANSI-Medicaid [id number] ANSI-Not a Secondary Insurance [id number]-k9i4-yz2a2 [id number] 73r41d64-5u01-1uk5-u8o5-nt2s91796i3g ANSI-Medicaid [id number] ANSI-Not a Secondary Insurance [id number]-4l661 0z24o08 [id number]-[id number] ANSI-Not a Secondary Insurance [id number]-jo9l-2130-hi42-291xj [id number]-fc4b-8108-[id number] ANSI-Medicaid [id number] ANSI-Not a Secondary Insurance [id number]-6138-565m-xa69-17ql4 8pq8zi6 713xh2yg-9532-119y-zx59-86at53ok9nm7 ANSI-Medicaid [id number] [facility] Medicaid Commercial [id number] Self [id number] ANSI-Medicaid [id number] ANSI-Not a Secondary Insurance [id number]-75fv4 [id number]-[id number] ANSI-Medicaid [id number] ANSI-Not a Secondary Insurance [id number]-22zg-28li-1300-9wc8q t0edr7l 7r81o0td-46og-32nd-8017-1tk6qc4ywa0a ANSI-Medicaid [id number] ANSI-Not a Secondary Insurance [id number]-sq8c-k369f [id number] [id number]-bn0f-[id number] ANSI-Not a Secondary Insurance [id number]-556z-28k4-7ig13 6c87wsz 943fpvj5-03cq-720i-[id number] ANSI-Medicaid [id number] [facility] Medicaid Commercial [id number] Self [id number] [facility] Medicaid Commercial [id number] Self [id number] ANSI-Not a Secondary Insurance [id number]-c7vq-[id number]-865m-[id number] ANSI-Medicaid [id number] ANSI-Not a Secondary Insurance [id number]-t25e-288g5 [id number]-i03r-[id number] ANSI-Medicaid [id number] ANSI-Medicaid [id number] ANSI-Not a Secondary Insurance [id number]-bs93-1c9i-4579-o5t31 [id number] 87g22j91-eg83-2d4x-0221-r1s30x3t26k7 ANSI-Medicaid [id number] ANSI-Not a Secondary Insurance [id number]-p2y8-2n3p-85su-6h7l9 z7ewx1g 70vsqv3n-f1f1-2l0x-46xo-8f4x3g6odn8s ANSI-Not a Secondary Insurance d8xhig27-ud4o-0wf5-2rbv-53mm3 72m5i31 a8gsoc56-df2r-6rn8-4pdh-[id number] ANSI-Medicaid [id number] ANSI-Medicaid [id number] ANSI-Not a Secondary Insurance [id number]-bbp4-808x-6hgd-2hjk1 [id number] [id number]-iis7-377d-2opo-6ect0226t05f ANSI-Not a Secondary Insurance [id number]-h1r2-nm813 vowz7e8 [id number]-2333-825f-j7e6-dq459qjcw2z4 ANSI-Medicaid [id number] ANSI-Not a Secondary Insurance [id number] [id number] [id number] ANSI-Medicaid [id number] ANSI-Not a Secondary Insurance [id number] [id number]-58is-[id number] ANSI-Medicaid [id number] ANSI-Not a Secondary Insurance [id number]-8pzn-2a89-812l3 [id number]-4zrz-[id number] ANSI-Medicaid [id number] ANSI-Not a Secondary Insurance [id number]-qwq27 8676e7a 1pmc0nr8-5013-0264-488v-wbl900392l3j ANSI-Medicaid [id number]-23j6-7w5v-[id number] ANSI-Not a Secondary Insurance [id number]-xv8d-5021-383k-21k1j [id number] [id number]-ci4f-3061-232p-[id number] ANSI-Medicaid [id number] ANSI-Not a Secondary Insurance [id number] [id number] [id number]-[id number] ANSI-Medicaid [id number] ANSI-Medicaid [id number] ANSI-Not a Secondary Insurance [id number]-[id number]-s547-89j12 [id number]-cac6-2u36-[id number] ANSI-Not a Secondary Insurance [id number]-r4w6-4447-1b78-5371b 3l9e7l2 h7l538r6-k8e7-8870-6j19-4943g0h8j4x9 ANSI-Medicaid [id number] ANSI-Not a Secondary Insurance [id number]-6f4w-6f23-3006-4rjmy [id number]-4a9b-[id number] ANSI-Medicaid [id number] ANSI-Not a Secondary Insurance [id number]-9599-8230-4860-n0mc2 b304i0h aj1005yy-6100-7647-4483-p9jo6y436c9t ANSI-Medicaid [id number] ANSI-Not a Secondary Insurance [id number]-9919-4wxq-1703j 6z2u5d1 [id number]-6l4h-8431-3vxx-1500j0j7h5f2 ANSI-Medicaid [id number] ANSI-Medicaid [id number] ANSI-Not a Secondary Insurance [id number]-j42r-249f-e351-872n1 05rg80q gk8mw879-w22v-864w-z479-106f230at55q ANSI-Not a Secondary Insurance 183cyf7f-fim6-76i0-n30z-1vd67 q59f5xm 235sel7x-atc2-57p4-f59c-3mg16q06v5un ANSI-Medicaid [id number]-[id number] ANSI-Not a Secondary Insurance [id number]-3436-8746-3gue-293bv [id number] ti19z10p-1197-8645-0tfk-568uk6ty01e0 ANSI-Medicaid [id number] ANSI-Not a Secondary Insurance [id number]-u52g-0953-k3lo-03zx3 [id number] 4x7oo3r0-p55y-2124-i7pu-[id number] ANSI-Medicaid [id number] ANSI-Medicaid [id number] ANSI-Not a Secondary Insurance [id number]-dh16-1x0p-yjy3-6e5k7 abh2e4s 59vy3873-zk32-0e0g-qke2-0s8i6tlk9t6c ANSI-Medicaid [id number] ANSI-Not a Secondary Insurance [id number]-d21u-8d79-bikf-33o2m [id number] srk028k9-w23w-7g74-ydsf-50c2v220ob77 ANSI-Not a Secondary Insurance k12csdw6-lkff-0r10-64x2-8ws49 08n6b79 f40yoiu8-orxr-0l46-90b7-3av8920z3r66 ANSI-Medicaid [id number] ANSI-Medicaid [id number]-6089-06fa-72xq-[id number] ANSI-Not a Secondary Insurance [id number]-9572-18r2-j5x3-q52p9 6t6dzpg 182x739d-4882-68s9-j6r6-w42v82p7cwqv ANSI-Not a Secondary Insurance 4pn1shh8-x489-4w07-788h-80t3b 91g1d67 8yk5slz8-p637-5v65-249d-28p9i53b0s36 ANSI-Medicaid [id number] ANSI-Not a Secondary Insurance k26dxb6s-818x-7125-t2c6-1tn54 [id number] b07iwv3l-458h-3264-s1y8-8rs2513478w7 ANSI-Medicaid [id number] [facility] Medicaid Commercial [id number] Self [id number] ANSI-Medicaid [id number]-x2lo-1p1i-[id number] ANSI-Not a Secondary Insurance [id number]-k0o4-711l-8o2b-14cc6 3489sp0 42hu241m-b5q5-818k-7y4d-41mp02541xg0 ANSI-Not a Secondary Insurance 12emjif9-73yj-15j6-w29v-r366j [id number] 35hekdh1-20lo-95o9-s51k-a961h82823x7 ANSI-Medicaid [id number]-[id number] ANSI-Medicaid [id number] ANSI-Not a Secondary Insurance [id number]-h431-3783-yv5j-1wuo9 f322j41 8mj41os7-i884-0259-xt6x-7seu9x588z27 ANSI-Medicaid [id number]-[id number] ANSI-Not a Secondary Insurance 80b64yh5-dwma-58rt-8380-ga9ah pmx27zg 49p62sb9-hgbk-90qp-2781-pn9aabmi85qv MVP MCDO [id number] SP [id number] MVP Medicaid Commercial [id number] Self [id number] ANSI-Medicaid [id number] ANSI-Not a Secondary Insurance [id number]-h27f-1p40-i579-376a5 39pso07 76659t2w-h46k-5c55-j370-269l007vvc84 ANSI-Medicaid [id number] ANSI-Not a Secondary Insurance [id number]-br44-5o6u-784q-m9xz9 n3l9s61 3506b296-uw85-2m2y-427g-i8wz8d5l4k35 ANSI-Not a Secondary Insurance [id number]-3397-9845f m924bch n3491f91-1330-9i0n-7445-6976uu151bdh ANSI-Medicaid [id number] ANSI-Not a Secondary Insurance 04v5uwz3-51f9-9s8l-eha0-w4g1a kqtn86b 89p6agv2-83t6-7a9r-alt2-q9y9nahxb92l ANSI-Medicaid [id number] ANSI-Medicaid [id number] ANSI-Not a Secondary Insurance [id number]-48gf-8w4y-8u42-3m7l9 3tbh5w8 q0865ska-73av-1b2k-4u00-1e3g03cxt6p3 ANSI-Not a Secondary Insurance [id number]-7004-2042-v5e1-79570 05a5w05 v00l454y-0426-0438-e3j5-2920080m0w16 ANSI-Medicaid [id number] ANSI-Medicaid [id number]-[id number] ANSI-Not a Secondary Insurance [id number]-x7qb-48469 6o6h84c 9w7jr027-6587-064f-y5ak-665290p8q48t ANSI-Medicaid [id number] ANSI-Not a Secondary Insurance [id number]-r1n53 2z6983e [id number]-[id number] ANSI-Not a Secondary Insurance w9ii6j3z-658o-7549-794e-t2056 g1rc7q4 o1pm6h4k-684l-7515-485g-q1503k5qg4v8 ANSI-Medicaid [id number] ANSI-Not a Secondary Insurance [id number]-335a-5gui-860k-j50bd 6r819pj 5s6275ye-398v-3pjz-185d-c84fv1w266ft ANSI-Medicaid [id number]-[id number] ANSI-Medicaid [id number] z9gv9f55-9dj0-93q8-eu3m-187q2s3d8b49 ANSI-Not a Secondary Insurance [id number]-x26a-764t-g219-x64qe 4wfor65 68ev7098-b48v-654w-c630-t82mx6czit13 ANSI-Medicaid [id number] ANSI-Not a Secondary Insurance [id number]-09u3-465c-a4y2-y7a57 42c9v20 3ejn367e-04l6-149t-g2c3-m2b1048e4s03 ANSI-Not a Secondary Insurance 8q2n2tg5-226j-3325-jut8-00263 u5hijvc 8t4n1jo1-218o-4966-ewu0-06516i7agshi ANSI-Medicaid [id number]-g5nv-[id number] ANSI-Not a Secondary Insurance 1x25o946-256j-9555-33hd-96p0h b476coa 7v04w730-984z-2827-96rd-40h0rg942vdk ANSI-Medicaid [id number] ANSI-Medicaid [id number]-[id number] ANSI-Not a Secondary Insurance y784wvwg-6628-6w52-10xy-b5x19 48s20z3 f375odue-4262-8m86-27lg-m3n5956w43g6 ANSI-Not a Secondary Insurance c91t1t66-9n17-98pe-xr1x-56033 11z4s89 o07e2j10-6w89-15ra-rw1g-1537101p1l27 ANSI-Medicaid [id number]-4i83-[id number] ANSI-Not a Secondary Insurance k61qrca1-gdn5-8ac0-f0ua-07677 70hu7j7 f60aaby0-ois0-9ku8-o0xc-3102663ct7y0 ANSI-Medicaid [id number]-18t5-454h-g1za-g6nlbd22rodn ANSI-Not a Secondary Insurance [id number]-6152p 0y919h7 5t528b14-82j8-7889-80ok-8123a1g635m0 ANSI-Medicaid [id number]-d5m6-0ucm-v1zb-[id number] ANSI-Not a Secondary Insurance uyi6dan0-816x-4339-gf93-mdq4x [id number] vqn4vmt5-757c-8050-yp60-zbn4nx474904 ANSI-Medicaid [id number] ANSI-Not a Secondary Insurance [id number]-m38t-9949-5f23-13669 2peki0r d02zhj55-r20a-3633-9l14-998512drkh3f ANSI-Medicaid [id number]-tf4w-[id number] ANSI-Medicaid [id number]-[id number] ANSI-Not a Secondary Insurance 85n4shr3-nl85-68f1-l459-t5y9s bf87b06 41w9rjr3-wn01-91d8-q462-[id number] [facility] Medicaid Commercial [id number] [facility] [id number] ANSI-Medicaid [id number] ANSI-Not a Secondary Insurance [id number]-tcd3-j18d7 j8280co [id number]-gza9-s69p2m4139kx ANSI-Not a Secondary Insurance [id number]-i15g7 x5tzw94 t14h81m0-3uz2-78u4-0fb4-u97n4i4qqv08 ANSI-Medicaid [id number]-7k53-8m7o-[id number] ANSI-Not a Secondary Insurance [id number]-u8v2-72hl-v204-326m4 [id number]-g5q7-39cw-[id number] ANSI-Medicaid [id number] ANSI-Not a Secondary Insurance [id number]-6593-6m73p [id number]-[id number] ANSI-Medicaid [id number] ANSI-Not a Secondary Insurance [id number]-874e-[id number] 0b44jv7 7v3lc8e7-69gl-192v-2emn-j91103q40gq0 ANSI-Medicaid [id number] ANSI-Medicaid [id number] ANSI-Not a Secondary Insurance [id number]-7eh6-8ag2-7697j [id number]-[id number] [facility] Medicaid Commercial [id number] Self [id number] P Medicaid Commercial [id number] Self [id number] P Medicaid Commercial [id number] Self [id number] [facility] [id number] SP [id number] [facility] Medicaid Commercial [id number] Self [id number] MEDICAID [id number] SELF PAY ONLY [id number] SP [id number] [facility] HEALTH CARE O [id number] S [id number] [facility] [id number] SP [id number] [facility] [id number] SP [id number] [facility] Medicaid Commercial Self P MCDO [id number] SP [id number] [facility] Medicaid Health Maintenance Organization (HMO) Self P HEALTH CARE O [id number] S [id number] MEDICAID M [id number] S [id number] [facility] HEALTH CARE O [id number] S [id number] [facility] [id number] SP [id number] SELF PAY ONLY [id number] SP [id number] 416 O UNAVAILABLE UNAVAILA BLE Problems, Conditions, and Diagnoses Code Display Name Description Problem Type Effective Dates Data Source(s) 31771313 Plantar fascial fibromatosis Plantar fascial fibromato sis Problem 03/27/2020 12:00:00 AM EST [facility] ([facility] [id number] Onychomycosis Onychomycosis Problem 03/27/2020 12:00:00 AM EST [facility] ([facility] 824785746 Polyneuropathy due to type 2 diabetes me llitus Polyneuropathy due to type 2 diabetes mellitus Problem 03/27/2020 12:00:00 AM EST [facility] ( [facility] M25.511 [id number] Arthralgia of shoulder region, right Prob latisha 02/28/2020 12:00:00 AM EST [facility] E13.65 235116411 Diabetes, type 1.5, uncontrolled, managed as type 1 Problem 12/25/2019 12:00:00 AM EDT [facility]) E78.2 Mixed hyperlipidemia Combined hyperlipidemia Problem 12/25/2019 12:00:00 AM EDT [facility]) E55.9 Vitamin D deficiency Vitamin D deficiency Problem 09/24/2019 12:00:00 AM EDT [facility]CW[facility]) N40.1 [id number] Benign prostatic hyp erplasia with lower urinary tract symptoms Problem 08/13/2019 12:00:00 AM EDT eCW1 ([facility]) I73.9 443162858 PAD (peripheral artery disease) Problem 08/13/2019 12:00:00 AM EDT [facility]) D16.21 40807350 Enchondroma of right femur Problem 0 12:00:00 AM EDT [facility]CW1 ([facility]) R35.1 389650744 Nocturia Problem 08/13/2019 12:00:00 AM ED T eCW1 ([facility]) N40.1 [id number] Benign prostatic hyp erplasia with lower urinary tract symptoms Problem 08/13/2019 12:00:00 AM EDT eCW1 ([facility]) D16.21 28529518 Enchondroma of right femur Problem 0 12:00:00 AM EDT [facility]CW[facility]) R35.1 110930474 Nocturia Problem 08/13/2019 12:00:00 AM ED T eCW1 [facility]) I73.9 417043693 PAD (peripheral artery disease) Problem 08/13/2019 12:00:00 AM EDT [facility]CW1 [facility]) E55.9 41678666 Vitamin D deficiency disease Problem 020 12:00:00 AM EDT eCW1 ([facility]) E55.9 33245594 Vitamin D deficiency disease Problem 020 12:00:00 AM EDT eCW1 [facility]) G62.9 397266937 Neuropathy Problem 05/18/2019 12:00:00 AM ES T eCW1 [facility]) G62.9 986533011 Neuropathy Problem 05/18/2019 12:00:00 AM ES T [facility]CW[facility]) M47.816 Lumbosacral spondylosis without myelopat hy Spondylosis without myelopathy or radiculopathy, lumbar region Problem 04/17/2019 12:00: 00 AM EST [facility]CW1 ([facility]) M47.816 Lumbosacral spondylosis without myelopat hy Spondylosis without myelopathy or radiculopathy, lumbar region Problem 04/17/2019 12:00: 00 AM EST eCW1 ([facility]) 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 Diagnosis 09/03/2019 07:45:00 AM EDT [facility] Surgeries/Procedures Procedure Description Date Indications Data Source(s) [facility] IN[facility] NRV 01/31/2020 12:00:00 AM EST [facility] ([facility] ) [facility] 10/29/2019 12:00:00 AM EDT [facility] ([facility], ) Spirometry 10/15/2019 12:00:00 AM EDT M EDENT ([facility], ) Maximum Breathing Capacity, Maximal Voluntary Ventilation 10/15/2019 12:00:00 AM EDT [facility] Plethysmography Determination Lung Volumes & Per Airway Resi st 10/15/2019 12:00:00 AM EDT [facility] ([facility] ) DIFFUSING CAPACITY 10/15/2019 12:00:00 AM EDT [facility] ([facility], ) Spirometry 08/23/2019 12:00:00 AM EDT M EDENT ([facility], ) [facility] NRV 07/12/2019 12:00:00 AM EDT [facility] ([facility]) TeleMedicine For a follow up visit or re assessment, tzow-wc-ztzf, 15 minutes per unit 06/04/2019 12:00:00 AM EDT [facility] ESTABILISHED PATIENT [facility] FACILITY CHARGE 020 12:00:00 AM EST [facility]CW[facility]) [facility] INNERVATED FACIAL NRV 04/09/2019 12:00:00 AM EST [facility] ([facility]) Implantable Loop Recorder System, Review And Report 03/21/2019 12:00:00 AM EST [facility] ([facility]) Implantable Loop Recorder System, Review And Report 02/15/2019 12:00:00 AM EST [facility] ([facility]) Interrogation device evaluation(s), (rem ote) up to 30 days; implantable cardiovascular monitor system or implantable loop recorder system, remote data acquisition(s), receipt of transmissions and broadcast technician 02/15/2019 12:00:00 AM EST [facility] ([facility]) Results ID Date Data Source PLZ SHOULDER COMPLETE 02/28/2020 12:00:00 AM EST eCW1 ([facility]) Name Value Range Interpretation Code Description Data Araseli rce(s) Supporting Document(s) PLZ SHOULDER COMPLETE eCW1 ([facility]) ID Date Data Source [id number] 02/14/2020 02:47:00 PM EST [facility] ([facility], ) Name Value Range Interpretation Code Description Data Araseli rce(s) Supporting Document(s) FVC-Pre 3.63 L [facility] ([facility], ) PDFReport Laboratory test result [facility] ([facility], ) FVC-Pred 4.63 L [facility] ([facility], ) FVC-LLN 3.63 L [facility] ([facility], ) FVC-%Pred-Pre 78 L [facility] ([facility], ) Fev1-Pred 3.76 L [facility] ([facility], ) Fev1-%Pred-Pre 62 L [facility] ([facility], ) Fev1-LLN 2.88 L [facility] ([facility]) Fev1-Pre 2.36 L [facility] ([facility]) Fev6-Pred 4.53 L [facility] ([facility]) Fev6-Pre 3.63 L MEDENT ([facility]) Fev6-LLN 3.55 L MEDENT ([facility]) Fev6-%Pred-Pre 80 L MEDENT ([facility]) Auc7lza-Nbqr 81 % MEDENT ([facility]) Tzt0ajl-PUI 71 % MEDENT ([facility]) Sbr5vml-Oev 65 % MEDENT ([facility]) Tkc4luk-%Pred-Pre 79 % MEDENT ([facility]) Rup2fos-Ixja 98 % MEDENT ([facility]) Vjg8asw-Man 100 % MEDENT ([facility]) Cwv8xae-%Pred-Pre 102 % MEDENT ([facility]) FEFMax-Pred 9.61 L/E/sec MEDENT ([facility]) FEFMax-%Pred-Pre 41 L/E/sec MEDENT ([facility]) FEFMax-Pre 3.94 L/E/sec MEDENT ([facility]) Glc2129-Cwm 1.48 L/E/sec MEDENT ([facility]) FEFMax-LLN 6.80 L/E/sec MEDENT ([facility]) Kpl8797-Xhkc 3.82 L/E/sec MEDENT ([facility]) Zot4333-XQV 1.93 L/E/sec MEDENT ([facility]) Dme3943-%Pred-Pre 38 L/E/sec MEDENT ([facility]) ExpTime-Pre 5.49 sec MEDENT ([facility]) Rnz9tnw5-%Pred-Pre 78 % MEDENT ([facility], ) Ajb1toz8-Trp 65 % MEDENT ([facility], ) Btk1tdx5-Hwme 83 % MEDENT ([facility], ) Oqs1efu6-YMS 73 % MEDENT ([facility], ) ID Date Data Source UA URINALYSIS 12/27/2019 09:36:28 AM EDT eCW1 ([facility]) Name Value Range Interpretation Code Description Data Araseli rce(s) Supporting Document(s) Laboratory studies (set) UA URINALYS IS eCW[facility]) ID Date Data Source [id number] 12/27/2019 09:36:26 AM EDT eCW1 ([facility]) Name Value Range Interpretation Code Description Data Araseli rce(s) Supporting Document(s) Microalbumin/Creatinine [Mass Ratio] in Urine 270.0 CREATININE, URINE eCW1 ([facility]) Microalbumin/Creatinine [Ratio] in Urine 10.1 MOISES/CREAT RATIO eCW1 ([facility]) Albumin/Creatinine [Mass Ratio] in Urine 27.3 MALB URINE SIEMENS eCW1 ([facility]) ID Date Data Source LIPID PANEL (CARDIAC RISK) 12/27/2019 09:36:23 AM EDT eCW1 ( [facility]) Name Value Range Interpretation Code Description Data Araseli rce(s) Supporting Document(s) Triglyceride [Mass/volume] in Serum or Plasma by calculation 113 eCW1 ([facility]) Cholesterol [Moles/volume] in Serum or Plasma 145 eCW1 ([facility]) Cholesterol in LDL [Mass/volume] in Serum or Plasma by calculation 76 eCW1 [facility]) 99 eCW1 ([facility]) 3.152 eCW1 ([facility]) Cholesterol in HDL [Moles/volume] in Serum or Plasma 46 eCW1 ([facility]) ID Date Data Source FREE T4 & TSH PANEL 12/27/2019 09:36:21 AM EDT eCW1 ([facility]) Name Value Range Interpretation Code Description Data Araseli rce(s) Supporting Document(s) 1.15 FREE T4 eCW1 ([facility]) 0.826 THYROID STIMULATING HORMONE eC W1 ([facility]) ID Date Data Source Comprehensive Metabolic Profile (CMP) 12/27/2019 09:36:19 AM EDT eCW1 ([facility]) Name Value Range Interpretation Code Description Data Araseli rce(s) Supporting Document(s) > 60.0 eCW1 ([facility]) 78 eCW1 ([facility]) 0.91 eCW1 ([facility]) 9 eCW1 ([facility]) 3.5 eCW1 ([facility]) 108 eCW1 ([facility]) 28 eCW1 ([facility]) 141 eCW1 ([facility]) 72 eCW1 ([facility]) 34 eCW1 ([facility]) 17 eCW1 ([facility]) 9.2 eCW1 ([facility]) 1.1 eCW1 ([facility]) 7.9 eCW1 ([facility]) 4.2 eCW1 ([facility]) 0.4 eCW1 ([facility]) ID Date Data Source PTH INTACT 10/03/2019 06:15:04 AM EDT eCW1 ([facility]) Name Value Range Interpretation Code Description Data Araseli rce(s) Supporting Document(s) 32.3 PTH INTACT eCW1 ([facility]) ID Date Data Source VITAMIN D 25-HYDROXY 10/03/2019 06:12:55 AM EDT eCW1 ([facility]) Name Value Range Interpretation Code Description Data Araseli rce(s) Supporting Document(s) 50.6 TOTAL 25(OH) VITAMIN D eCW1 ([facility]) ID Date Data Source [id number] 09/03/2019 01:15:00 PM EDT [facility] [address] [place] [address] PHONE: [phone] FAX: [phone] Name .................. : DAVIS VANCE Acct Number.................. : [id number] ROOM. ................. : MR Number ................... : [id number] Stay type ............. : O/P Discharge Date......... ... : 09/03/19 Admit Date ......... : 09/03/19 Admit Phys .................... : [employer] Date of ....... : 1975 Family Phys ................... : [employer] Phone .................. : [phone] Age ................................ : 44 Film# .................. .:[id number] Sex ................................. : M Unsigned transcriptions are preliminary reports and do not represent a medical or legal document MRI LOWER EXT W/O CONTRAST RT [id number] COMPLETE:09/03/19 08:44 [facility] [id number] (REASON FOR PROCESS: R FEMUR ENCHONDROMA MRI SCAN OF THE RIGHT FEMUR WITHOUT CONTRAST ENHANCEMENT, 09/03/19: INDICATION: Right femur enchondroma. FINDINGS: Apparently there is an outside CT scan which we do not have access to. If those films can be obtained, I would be happy to make a direct comparison. There is normal alignment and position of the femur. There is no evidence for any marrow edema or any aggressive lesions within the b one. In the femoral neck region, there does, however, appear to be an area of decreased T1 signal measuring about 1.8 cm x 1.4 cm. That does not demonstrate any edema or increased signal along the STIR sequences or on the T2 sequences. That may be an interosseous hemangioma. Correlation with that CT would be helpful to see if CT appearance and if there is any calcification within the lesion. There are a few small signal voids along the posterior margin of the lesion suggestive of some possible calcification. As stated, there are no signs of any associated edema with the lesion or any periosteal reaction. IMPRESSION: Area of decreased T1 signal identified in the femoral neck region. This may be an interosseous hemangioma. Possibility of an enchondroma is a consideration. Those are both benign entities. No signs of any aggressive behavior or marrow edema is associated with the abnormality. I think soft tissues appear normal. If any further evaluation of this abnormality is needed, then correlation with a plain x-ray or correlation with that prior CT would be my first option. No other significant findings. Page 1 of 2 [facility] [address] [place] [address] PHONE: [phone] FAX: [phone] Name .................. : DAVIS VANCE Acct Number.................. : [id number] ROOM. ................. : MR Number ................... : [id number] Stay type ............. : O/P Discharge Date......... ... : 09/03/19 Admit Date ......... : 09/03/19 Admit Phys .................... : MARYCRUZ Date of ....... : 1975 Family Phys ................... : MARYCRUZ Phone .................. : [phone] Age ................................ : 44 Film# .................. .:[id number] Sex ................................. : M Un signed transcriptions are preliminary reports and do not represent a medical or legal document MRI LOWER EXT W/O CONTRAST RT [id number] COMPLETE:09/03/19 08:44 [facility] [id number] (REASON FOR PROCESS: R FEMUR ENCHONDROMA Electronically Reviewed and Signed By ALEJANDRA AMAYA MD , 09/03/19 13:15, [facility] Transcribe Initials: SSR, Transcribe Date: 09/03/19 11:21, Dictation Date: Copy for: KATHARINESABRINA SCHUSTER MONIQUE via fax Copy for: 710 MED REC Page 2 of 2 Name Value Range Interpretation Code Description Data Araseli rce(s) Supporting Document(s) ID Date Data Source [id number] 08/23/2019 08:55:00 AM EDT MEDENT ([facility]) Name Value Range Interpretation Code Description Data Araseli rce(s) Supporting Document(s) FVC-Pred 4.63 L MEDENT ([facility]) PDFReport Laboratory test result MEDENT ([facility]) FVC-Pre 3.54 L MEDENT ([facility]) FVC-LLN 3.63 L MEDENT ([facility]) FVC-%Pred-Pre 76 L MEDENT ([facility]) Fev1-Pre 2.36 L MEDENT ([facility]) Fev1-Pred 3.76 L MEDENT ([facility] ) Fev1-%Pred-Pre 62 L MEDENT ([facility]) Fev6-Pred 4.53 L MEDENT ([facility]) Fev1-LLN 2.88 L MEDENT ([facility]) Fev6-Pre 3.54 L MEDENT ([facility]) Fev6-%Pred-Pre 78 L MEDENT ([facility]) Fev6-LLN 3.55 L MEDENT ([facility]) Puj3ckh-Feyr 81 % MEDENT ([facility]) Ilc9ece-%Pred-Pre 81 % MEDENT ([facility]) Jhh5yvz-Zdh 67 % MEDENT ([facility]) Dld4xrl-IWS 71 % MEDENT ([facility]) Ymn3lhb-Var 100 % MEDENT ([facility]) Mfk6off-Ckvq 98 % MEDENT ([facility]) Fbn2ecx-%Pred-Pre 102 % MEDENT ([facility]) FEFMax-Pred 9.61 L/E/sec MEDENT ([facility]) FEFMax-%Pred-Pre 42 L/E/sec MEDENT ([facility]) FEFMax-Pre 4.13 L/E/sec MEDENT ([facility]) [id number] 3.82 L/E/sec MEDENT ([facility]) FEFMax-LLN 6.80 L/E/sec MEDENT ([facility]) [id number]-Orq 1.48 L/E/sec MEDENT ([facility]) ExpTime-Pre 5.99 sec MEDENT ([facility]) [id number]-ADJ 1.93 L/E/sec MEDENT ([facility]) Uur3391-%Pred-Pre 38 L/E/sec MEDENT ([facility]) Hzw7rsr1-Fyt 67 % MEDENT ([facility]) Hdk9eku8-Itfu 83 % MEDENT ([facility]) Tvq6bdr7-%Pred-Pre 79 % MEDENT ([facility]) Lue6wux5-EMT 73 % MEDENT ([facility]) ID Date Data Source [id number] 07/31/2019 02:52:00 PM EDT MED[facility] ([facility]) Name Value Range Interpretation Code Description Data Araseli rce(s) Supporting Document(s) Carbon dioxide, total [Moles/volume] in Serum or Plasma 25 MED[facility] ([facility]) Calcium [Mass/volume] in Serum or Plasma 9.5 MED[facility] ([facility]) Sodium 138 [facility] Potassium [Moles/volume] in Serum or Plasma 4.2 MED[facility] ([facility]) Chloride [Moles/volume] in Serum or Plasma 105 MED[facility] ([facility]) Glucose 198 70-100 [facility] Glomerular filtration rate/1.73 sq M.pre dicted [Volume Rate/Area] in Serum or Plasma by Creatinine-based formula (MDRD) Laboratory test result MED[facility] ([facility]) Blood Urea Nitrogen 11 7-18 [facility] ([facility]) Creatinine 1.18 0.70-1.30 MED[facility] ([facility]) ID Date Data Source [id number] 07/31/2019 02:52:00 PM EDT MED[facility] ([facility]) Name Value Range Interpretation Code Description Data Araseli rce(s) Supporting Document(s) White Blood Count 8.6 4.0-10.0 [facility] ([facility]) Red Blood Count 5.06 4.30-6.10 MED[facility] ([facility]) Hematocrit 45.1 42.0-52.0 MEDENT ([facility]) Platelets 220 150-450 [facility] Hemoglobin 15.4 13.5-17.5 MED[facility] ([facility]) Procedure Social History Code Duration Value Status Description Data Source(s ) Smoking 02/28/2020 12:00:00 AM EST Current Smoker completed Curre nt Smoker [facility] Smoking 02/28/2020 12:00:00 AM EST Current Smoker completed Curre nt Smoker eCW1 ([facility]) Smoking 02/28/2020 12:00:00 AM EST Current Smoker completed Curre nt Smoker eCW1 ([facility]) Smoking 02/28/2020 12:00:00 AM EST Current Smoker completed Curre nt Smoker eCW1 ([facility]) Smoking 02/28/2020 12:00:00 AM EST Current Smoker completed Curre nt Smoker eCW1 ([facility]) Smoking 02/28/2020 12:00:00 AM EST Current Smoker completed Curre nt Smoker eCW1 ([facility]) Smoking 02/28/2020 12:00:00 AM EST Current Smoker completed Curre nt Smoker eCW1 ([facility]) Smoking 02/28/2020 12:00:00 AM EST Current Smoker completed Curre nt Smoker eCW1 ([facility]) Smoking 12/25/2019 12:00:00 AM EDT Current Smoker completed Curre nt Smoker eCW1 ([facility]) Smoking 12/25/2019 12:00:00 AM EDT Current Smoker completed Curre nt Smoker eCW1 ([facility]) Smoking 12/25/2019 12:00:00 AM EDT Current Smoker completed Curre nt Smoker eCW1 ([facility]) Smoking 12/25/2019 12:00:00 AM EDT Current Smoker completed Curre nt Smoker eCW1 ([facility]) Smoking 12/25/2019 12:00:00 AM EDT Current Smoker completed Curre nt Smoker eCW1 ([facility]) Smoking 12/25/2019 12:00:00 AM EDT Current Smoker completed Curre nt Smoker eCW1 ([facility]) Smoking 12/25/2019 12:00:00 AM EDT Current Smoker completed Curre nt Smoker eCW1 ([facility]) Smoking 12/25/2019 12:00:00 AM EDT Current Smoker completed Curre nt Smoker eCW1 ([facility]) Smoking 12/25/2019 12:00:00 AM EDT Current Smoker completed Curre nt Smoker eCW1 ([facility]) Smoking 12/25/2019 12:00:00 AM EDT Current Smoker completed Curre nt Smoker eCW1 ([facility]) Smoking 12/25/2019 12:00:00 AM EDT Current Smoker completed Curre nt Smoker eCW1 ([facility]) Smoking 12/25/2019 12:00:00 AM EDT Current Smoker completed Curre nt Smoker eCW1 ([facility]) Smoking 12/25/2019 12:00:00 AM EDT Current Smoker completed Curre nt Smoker eCW1 ([facility]) Smoking 12/25/2019 12:00:00 AM EDT Current Smoker completed Curre nt Smoker eCW1 ([facility]) Smoking 12/25/2019 12:00:00 AM EDT Current Smoker completed Curre nt Smoker eCW1 ([facility]) Smoking 12/25/2019 12:00:00 AM EDT Current Smoker completed Curre nt Smoker eCW1 ([facility]) Smoking 12/25/2019 12:00:00 AM EDT Current Smoker completed Curre nt Smoker eCW1 ([facility]) Smoking 12/25/2019 12:00:00 AM EDT Current Smoker completed Curre nt Smoker eCW1 ([facility]) Smoking 12/25/2019 12:00:00 AM EDT Current Smoker completed Curre nt Smoker eCW1 ([facility]) Smoking 12/25/2019 12:00:00 AM EDT Current Smoker completed Curre nt Smoker eCW1 ([facility]) Smoking 12/25/2019 12:00:00 AM EDT Current Smoker completed Curre nt Smoker eCW1 ([facility]) Smoking 12/25/2019 12:00:00 AM EDT Current Smoker completed Curre nt Smoker eCW1 ([facility]) Smoking 09/24/2019 12:00:00 AM EDT Current Smoker completed Curre nt Smoker eCW1 ([facility]) Smoking 09/24/2019 12:00:00 AM EDT Current Smoker completed Curre nt Smoker eCW1 ([facility]) Smoking 09/24/2019 12:00:00 AM EDT Current Smoker completed Curre nt Smoker eCW1 ([facility]) Smoking 09/24/2019 12:00:00 AM EDT Current Smoker completed Curre nt Smoker eCW1 ([facility]) Smoking 09/24/2019 12:00:00 AM EDT Current Smoker completed Curre nt Smoker eCW1 ([facility]) Smoking 08/13/2019 12:00:00 AM EDT Current Smoker completed Curre nt Smoker eCW1 ([facility]) Smoking 08/13/2019 12:00:00 AM EDT Current Smoker completed Curre nt Smoker eCW1 ([facility]) Smoking 08/13/2019 12:00:00 AM EDT Current Smoker completed Curre nt Smoker eCW1 ([facility]) Smoking 08/13/2019 12:00:00 AM EDT Current Smoker completed Curre nt Smoker eCW1 ([facility]) Smoking 04/25/2019 12:00:00 AM EST Patient is a former smoker completed Patient is a former smoker [facility] ([facility]) Vital Signs ID Date Data Source UNK Name Value Range Interpretation Code Description Data Source(s) Body mass index (BMI) [Ratio] 23.7 kg/m2 23.7 k g/m2 [facility] ([facility] Heart rate 78 /min 78 /min [facility] ([facility] Diastolic blood pressure 100 mm[Hg] 100 mm[Hg] [facility] ([facility] Systolic blood pressure 150 mm[Hg] 150 mm[Hg] M EDENT ([facility] Body weight 175.00 [lb_av] 175.00 [lb_av] MEDEN T ([facility] Body height 72 [in_i] 72 [in_i] [facility] ([facility] 6'0" Diastolic blood pressure 80 mm[Hg] 80 mm[Hg] [facility] Systolic blood pressure 138 mm[Hg] 138 mm[Hg] e CW1 ([facility]) Body temperature 96.5 [degF] 96.5 [degF] eCW1 ( [facility]) Respiratory rate 18 /min 18 /min eCW1 ([facility]) Heart rate 102 /min 102 /min eCW1 ([facility]) Body mass index (BMI) [Ratio] 24.75 kg/m2 24.75 kg/m2 eCW1 ([facility]) Body height 70.5 [in_i] 70.5 [in_i] eCW1 ([facility]) Body weight 175 [lb_av] 175 [lb_av] eCW1 ([facility]) Body surface area Derived from formula 2.01 m2 2.01 m2 [facility], ) Body weight 79.550 kg 79.550 kg [facility] ([facility]) [place] body weight 178 [lb_av] 178 [lb_av] MEDEN T ([facility]) Body mass index (BMI) [Ratio] 23.8 kg/m2 23.8 k g/m2 [facility] ([facility]) Body weight 175.38 [lb_av] 175.38 [lb_av] MEDEN T ([facility], ) Body height 72 [in_i] 72 [in_i] [facility] ([facility], ) 6'0" Body temperature 97.8 [degF] 97.8 [degF] [facility] ([facility], ) Oxygen saturation in Arterial blood by Pulse oximetry 98 % 98 % [facility] ([facility]) Heart rate 76 /min 76 /min [facility] ([facility]) Diastolic blood pressure 88 mm[Hg] 88 mm[Hg] [facility], ) Systolic blood pressure 144 mm[Hg] 144 mm[Hg] [facility]) Diastolic blood pressure 82 mm[Hg] 82 mm[Hg] eCW1 [facility]) Systolic blood pressure 130 mm[Hg] 130 mm[Hg] e CW1 ([facility]) Body temperature 96.6 [degF] 96.6 [degF] eCW1 ( [facility]) Respiratory rate 18 /min 18 /min eCW1 ([facility]) Heart rate 97 /min 97 /min eCW1 ([facility]) Body mass index (BMI) [Ratio] 24.61 kg/m2 24.61 kg/m2 eCW1 ([facility]) Body height 70.5 [in_i] 70.5 [in_i] eCW1 ([facility]) Body weight 174.0 [lb_av] 174.0 [lb_av] eCW1 [facility] Body surface area Derived from formula 2.01 m2 2.01 m2 [facility]) Body weight 79.380 kg 79.380 kg [facility] ([facility]) [place] body weight 178 [lb_av] 178 [lb_av] MEDEN T ([facility]) Body mass index (BMI) [Ratio] 23.7 kg/m2 23.7 k g/m2 [facility] ([facility]) Body weight 175.00 [lb_av] 175.00 [lb_av] MEDEN T ([facility]) Body height 72 [in_i] 72 [in_i] [facility] ([facility]) 6'0" Diastolic blood pressure 124 mm[Hg] 124 mm[Hg] [facility] ([facility]) Systolic blood pressure 191 mm[Hg] 191 mm[Hg] M EDENT ([facility]) Body weight 80.741 kg 80.741 kg [facility] ([facility]) Body mass index (BMI) [Ratio] 24.1 kg/m2 24.1 k g/m2 [facility] ([facility]) Body weight 178.00 [lb_av] 178.00 [lb_av] MEDEN T ([facility]) Body height 72 [in_i] 72 [in_i] [facility]) 6'0" Body temperature 98.1 [degF] 98.1 [degF] [facility] ([facility]) Oxygen saturation in Arterial blood by Pulse oximetry 98 % 98 % [facility] ([facility]) Heart rate 88 /min 88 /min [facility]) Diastolic blood pressure 90 mm[Hg] 90 mm[Hg] [facility]) Systolic blood pressure 144 mm[Hg] 144 mm[Hg] M EDENT ([facility]) Diastolic blood pressure 76 mm[Hg] 76 mm[Hg] eCW1 [facility]) Systolic blood pressure 118 mm[Hg] 118 mm[Hg] e CW1 ([facility]) Body temperature 97.4 [degF] 97.4 [degF] W1 ( [facility]) Respiratory rate 17 /min 17 /min eCW1 ([facility]) Heart rate 92 /min 92 /min eCW1 ([facility]) Body mass index (BMI) [Ratio] 24.92 kg/m2 24.92 kg/m2 W1 ([facility]) Body height 70.5 [in_i] 70.5 [in_i] eCW1 ([facility]) Body weight 176.2 [lb_av] 176.2 [lb_av] eCW[facility] Body weight 83.009 kg 83.009 kg [facility]) Body mass index (BMI) [Ratio] 24.8 kg/m2 24.8 k g/m2 [facility]) Body weight 183.00 [lb_av] 183.00 [lb_av] MEDEN T ([facility]) Body height 72 [in_i] 72 [in_i] [facility] ([facility]) 6'0" Body temperature 97.2 [degF] 97.2 [degF] MEDENT ([facility], ) Oxygen saturation in Arterial blood by Pulse oximetry 96 % 96 % [facility] ([facility], ) Heart rate 86 /min 86 /min [facility], ) Diastolic blood pressure 98 mm[Hg] 98 mm[Hg] [facility] ([facility], ) Systolic blood pressure 126 mm[Hg] 126 mm[Hg] [facility], ) Diastolic blood pressure 92 mm[Hg] 92 mm[Hg] eCW1 [facility]) Systolic blood pressure 140 mm[Hg] 140 mm[Hg] e CW1 ([facility]) Body temperature 97.5 [degF] 97.5 [degF] eCW1 ( [facility]) Respiratory rate 18 /min 18 /min eCW1 ([facility]) Heart rate 122 /min 122 /min eCW1 ([facility]) Body mass index (BMI) [Ratio] 26.31 kg/m2 26.31 kg/m2 W1 ([facility]) Body height 70.5 [in_i] 70.5 [in_i] eCW1 ([facility]) Body weight 186 [lb_av] 186 [lb_av] eCW1 ([facility]) Body mass index (BMI) [Ratio] 26.70 kg/m2 26.70 kg/m2 W1 ([facility]) Body height 70.5 [in_us] 70.5 [in_us] eCW1 ([facility]) Body weight Measured [lb_av] eCW1 ([facility]) Diastolic blood pressure 106 mm[Hg] 106 mm[Hg] eCW1 ([facility]) Systolic blood pressure 160 mm[Hg] 160 mm[Hg] e CW1 ([facility]) Body temperature 98.2 [degF] 98.2 [degF] eCW1 ( [facility]) Respiratory rate 17 /min 17 /min eCW1 ([facility]) Heart rate 100 /min 100 /min eCW1 ([facility]) Body mass index (BMI) [Ratio] 26.70 kg/m2 26.70 kg/m2 eCW1 ([facility]) Body height 70.5 [in_us] 70.5 [in_us] eCW1 ([facility]) Body weight Measured 188.8 [lb_av] 188.8 [lb_av ] eCW1 ([facility]) Diastolic blood pressure--sitting 84 mm[Hg] 84 mm[Hg] MEDENT ([facility]) Systolic blood pressure--sitting 118 mm[Hg] 118 mm[Hg] MED[facility] ([facility]) Body mass index (BMI) [Ratio] 25.5 kg/m2 25.5 k g/m2 [facility] ([facility]) Body height 71 [in_i] 71 [in_i] MED[facility] ([facility]) 5'11" Body weight 183.00 [lb_av] 183.00 [lb_av] MEDEN T ([facility]) Patient Treatment Plan of Care Planned Activity Planned Date Details Description Data Source (s) tizanidine 4 MG Oral Tablet 02/28/2020 12:00:00 AM EST eCW1 ([facility]) gabapentin 600 MG Oral Tablet 02/28/2020 12:00:00 AM EST eCW1 ([facility]) tizanidine 4 MG Oral Tablet 02/28/2020 12:00:00 AM EST eCW1 ([facility]) gabapentin 600 MG Oral Tablet 02/28/2020 12:00:00 AM EST eCW1 ([facility]) tizanidine 4 MG Oral Tablet 02/28/2020 12:00:00 AM EST eCW1 ([facility]) tizanidine 4 MG Oral Tablet 02/28/2020 12:00:00 AM EST eCW1 ([facility]) gabapentin 600 MG Oral Tablet 02/28/2020 12:00:00 AM EST eCW1 ([facility]) tizanidine 4 MG Oral Tablet 02/28/2020 12:00:00 AM EST eCW1 ([facility]) gabapentin 600 MG Oral Tablet 02/28/2020 12:00:00 AM EST eCW1 ([facility]) tizanidine 4 MG Oral Tablet 02/28/2020 12:00:00 AM EST eCW1 ([facility]) gabapentin 600 MG Oral Tablet 02/28/2020 12:00:00 AM EST eCW1 ([facility]) gabapentin 600 MG Oral Tablet 02/28/2020 12:00:00 AM EST eCW1 ([facility]) tizanidine 4 MG Oral Tablet 02/28/2020 12:00:00 AM EST eCW1 ([facility]) gabapentin 600 MG Oral Tablet 02/28/2020 12:00:00 AM EST eCW1 ([facility]) tizanidine 4 MG Oral Tablet 02/28/2020 12:00:00 AM EST eCW1 ([facility]) gabapentin 600 MG Oral Tablet 02/28/2020 12:00:00 AM EST eCW1 ([facility]) 200 ACTUAT Levalbuterol 0.045 MG/ACTUAT Metered Dose I nhaler 01/08/2020 12:00:00 AM EDT eCW1 ([facility]) 200 ACTUAT Levalbuterol 0.045 MG/ACTUAT Metered Dose I nhaler 01/08/2020 12:00:00 AM EDT eCW1 ([facility]) 200 ACTUAT Levalbuterol 0.045 MG/ACTUAT Metered Dose I nhaler 01/08/2020 12:00:00 AM EDT eCW1 ([facility]) 200 ACTUAT Levalbuterol 0.045 MG/ACTUAT Metered Dose I nhaler 01/08/2020 12:00:00 AM EDT eCW1 ([facility]) 200 ACTUAT Levalbuterol 0.045 MG/ACTUAT Metered Dose I nhaler 01/08/2020 12:00:00 AM EDT eCW1 ([facility]) 200 ACTUAT Levalbuterol 0.045 MG/ACTUAT Metered Dose I nhaler 01/08/2020 12:00:00 AM EDT eCW1 ([facility]) 200 ACTUAT Levalbuterol 0.045 MG/ACTUAT Metered Dose I nhaler 01/08/2020 12:00:00 AM EDT eCW1 ([facility]) 200 ACTUAT Levalbuterol 0.045 MG/ACTUAT Metered Dose I nhaler 01/08/2020 12:00:00 AM EDT eCW1 ([facility]) Isopropyl Alcohol 0.7 ML/ML Medicated Pad 09/19/2019 12:00:00 AM ED T eCW1 [facility]) Isopropyl Alcohol 0.7 ML/ML Medicated Pad 09/19/2019 12:00:00 AM ED T eCW1 ([facility]) Isopropyl Alcohol 0.7 ML/ML Medicated Pad 09/19/2019 12:00:00 AM ED T eCW1 ([facility]) Isopropyl Alcohol 0.7 ML/ML Medicated Pad 09/19/2019 12:00:00 AM ED T eCW1 ([facility]) Isopropyl Alcohol 0.7 ML/ML Medicated Pad 09/19/2019 12:00:00 AM ED T eCW1 ([facility]) Isopropyl Alcohol 0.7 ML/ML Medicated Pad 09/19/2019 12:00:00 AM ED T eCW1 ([facility]) Isopropyl Alcohol 0.7 ML/ML Medicated Pad 09/19/2019 12:00:00 AM ED T eCW1 ([facility]) Isopropyl Alcohol 0.7 ML/ML Medicated Pad 09/19/2019 12:00:00 AM ED T eCW1 ([facility]) Isopropyl Alcohol 0.7 ML/ML Medicated Pad 09/19/2019 12:00:00 AM ED T eCW1 ([facility]) Isopropyl Alcohol 0.7 ML/ML Medicated Pad 09/19/2019 12:00:00 AM ED T eCW1 ([facility]) Isopropyl Alcohol 0.7 ML/ML Medicated Pad 09/19/2019 12:00:00 AM ED T eCW1 ([facility]) Isopropyl Alcohol 0.7 ML/ML Medicated Pad 09/19/2019 12:00:00 AM ED T eCW1 ([facility]) Isopropyl Alcohol 0.7 ML/ML Medicated Pad 09/19/2019 12:00:00 AM ED T eCW1 ([facility]) Isopropyl Alcohol 0.7 ML/ML Medicated Pad 09/19/2019 12:00:00 AM ED T eCW1 ([facility]) BD Pen Needle Jessica U/F 32G X 4 MM 09/17/2019 12:00:00 AM EDT eCW1 ([facility]) BD Pen Needle Jessica U/F 32G X 4 MM 09/17/2019 12:00:00 AM EDT eCW1 ([facility]) BD Pen Needle Jessica U/F 32G X 4 MM 09/17/2019 12:00:00 AM EDT eCW1 ([facility]) BD Pen Needle Jessica U/F 32G X 4 MM 09/17/2019 12:00:00 AM EDT eCW1 ([facility]) BD Pen Needle Jessica U/F 32G X 4 MM 09/17/2019 12:00:00 AM EDT eCW1 ([facility]) BD Pen Needle Jessica U/F 32G X 4 MM 09/17/2019 12:00:00 AM EDT eCW1 ([facility]) BD Pen Needle Jessica U/F 32G X 4 MM 09/17/2019 12:00:00 AM EDT eCW1 ([facility]) BD Pen Needle Jessica U/F 32G X 4 MM 09/17/2019 12:00:00 AM EDT eCW1 ([facility]) BD Pen Needle Jessica U/F 32G X 4 MM 09/17/2019 12:00:00 AM EDT eCW1 ([facility]) BD Pen Needle Jessica U/F 32G X 4 MM 09/17/2019 12:00:00 AM EDT eCW1 ([facility]) BD Pen Needle Jessica U/F 32G X 4 MM 09/17/2019 12:00:00 AM EDT eCW1 ([facility]) BD Pen Needle Jessica U/F 32G X 4 MM 09/17/2019 12:00:00 AM EDT eCW1 ([facility]) BD Pen Needle Jessica U/F 32G X 4 MM 09/17/2019 12:00:00 AM EDT eCW1 ([facility]) BD Pen Needle Jessica U/F 32G X 4 MM 09/17/2019 12:00:00 AM EDT eCW1 ([facility]) pantoprazole 40 MG Delayed Release Oral Tablet [Proton ix] 08/13/2019 12:00:00 AM EDT eCW1 ([facility]) Tamsulosin hydrochloride 0.4 MG Oral Capsule [Flomax] 08/13/2019 12:00:00 AM EDT eCW1 ([facility]) sildenafil 25 MG Oral Tablet [Viagra] 08/13/2019 12:00:00 AM EDT eCW1 ([facility]) sildenafil 25 MG Oral Tablet [Viagra] 08/13/2019 12:00:00 AM EDT eCW1 ([facility]) pantoprazole 40 MG Delayed Release Oral Tablet [Proton ix] 08/13/2019 12:00:00 AM EDT eCW1 ([facility]) Tamsulosin hydrochloride 0.4 MG Oral Capsule [Flomax] 08/13/2019 12:00:00 AM EDT eCW1 ([facility]) sildenafil 25 MG Oral Tablet [Viagra] 08/13/2019 12:00:00 AM EDT eCW1 ([facility]) pantoprazole 40 MG Delayed Release Oral Tablet [Proton ix] 08/13/2019 12:00:00 AM EDT eCW1 ([facility]) Tamsulosin hydrochloride 0.4 MG Oral Capsule [Flomax] 08/13/2019 12:00:00 AM EDT eCW1 ([facility]) sildenafil 25 MG Oral Tablet [Viagra] 08/13/2019 12:00:00 AM EDT [facility] pantoprazole 40 MG Delayed Release Oral Tablet [Proton ix] 08/13/2019 12:00:00 AM EDT eCW1 ([facility]) Tamsulosin hydrochloride 0.4 MG Oral Capsule [Flomax] 08/13/2019 12:00:00 AM EDT eCW1 ([facility]) Ergocalciferol 14875 UNT Oral Capsule 06/18/2019 12:00:00 AM EDT [facility]) canagliflozin 100 MG Oral Tablet [Invokana] 06/18/2019 12:00:00 AM EDT eCW1 ([facility]) Ergocalciferol 42687 UNT Oral Capsule 06/18/2019 12:00:00 AM EDT [facility]CW1 ([facility]) canagliflozin 100 MG Oral Tablet [Invokana] 06/18/2019 12:00:00 AM EDT eCW1 ([facility]) Ergocalciferol 79879 UNT Oral Capsule 06/18/2019 12:00:00 AM EDT eCW1 ([facility]) canagliflozin 100 MG Oral Tablet [Invokana] 06/18/2019 12:00:00 AM EDT eCW1 ([facility]) canagliflozin 100 MG Oral Tablet [Invokana] 06/18/2019 12:00:00 AM EDT eCW1 ([facility]) Ergocalciferol 04155 UNT Oral Capsule 06/18/2019 12:00:00 AM EDT eCW1 ([facility]) canagliflozin 100 MG Oral Tablet [Invokana] 06/18/2019 12:00:00 AM EDT eCW1 ([facility]) Ergocalciferol 40529 UNT Oral Capsule 06/18/2019 12:00:00 AM EDT eCW1 ([facility]) canagliflozin 100 MG Oral Tablet [Invokana] 06/18/2019 12:00:00 AM EDT eCW1 ([facility]) Ergocalciferol [id number] UNT Oral Capsule 06/18/2019 12:00:00 AM EDT eCW1 ([facility]) canagliflozin 100 MG Oral Tablet [Invokana] 06/18/2019 12:00:00 AM EDT eCW1 ([facility]) Ergocalciferol 57624 UNT Oral Capsule 06/18/2019 12:00:00 AM EDT eCW1 ([facility]) canagliflozin 100 MG Oral Tablet [Invokana] 06/18/2019 12:00:00 AM EDT eCW1 ([facility]) Ergocalciferol 23398 UNT Oral Capsule 06/18/2019 12:00:00 AM EDT eCW1 ([facility]) canagliflozin 100 MG Oral Tablet [Invokana] 06/18/2019 12:00:00 AM EDT eCW1 ([facility]) Ergocalciferol 26175 UNT Oral Capsule 06/18/2019 12:00:00 AM EDT eCW1 ([facility]) canagliflozin 100 MG Oral Tablet [Invokana] 06/18/2019 12:00:00 AM EDT eCW1 ([facility]) Ergocalciferol 27664 UNT Oral Capsule 06/18/2019 12:00:00 AM EDT eCW1 ([facility]) canagliflozin 100 MG Oral Tablet [Invokana] 06/18/2019 12:00:00 AM EDT eCW1 ([facility]) Ergocalciferol 00846 UNT Oral Capsule 06/18/2019 12:00:00 AM EDT eCW1 ([facility]) canagliflozin 100 MG Oral Tablet [Invokana] 06/18/2019 12:00:00 AM EDT eCW1 ([facility]) Ergocalciferol 89642 UNT Oral Capsule 06/18/2019 12:00:00 AM EDT eCW1 ([facility]) canagliflozin 100 MG Oral Tablet [Invokana] 06/18/2019 12:00:00 AM EDT eCW1 ([facility]) canagliflozin 100 MG Oral Tablet [Invokana] 06/18/2019 12:00:00 AM EDT eCW1 ([facility]) canagliflozin 100 MG Oral Tablet [Invokana] 06/18/2019 12:00:00 AM EDT eCW1 ([facility]) Ergocalciferol 84778 UNT Oral Capsule 06/18/2019 12:00:00 AM EDT eCW1 ([facility]) canagliflozin 100 MG Oral Tablet [Invokana] 06/18/2019 12:00:00 AM EDT eCW1 ([facility]) Ergocalciferol [id number] UNT Oral Capsule 06/18/2019 12:00:00 AM EDT eCW1 ([facility]) empagliflozin 10 MG Oral Tablet [Jardiance] 06/18/2019 12:00:00 AM EDT eCW1 ([facility]) canagliflozin 100 MG Oral Tablet [Invokana] 06/18/2019 12:00:00 AM EDT eCW1 ([facility]) Ergocalciferol 26255 UNT Oral Capsule 06/18/2019 12:00:00 AM EDT eCW1 ([facility]) canagliflozin 100 MG Oral Tablet [Invokana] 06/18/2019 12:00:00 AM EDT eCW1 ([facility]) gabapentin 400 MG Oral Capsule 05/18/2019 12:00:00 AM EST eCW1 ([facility]) gabapentin 400 MG Oral Capsule 05/18/2019 12:00:00 AM EST eCW1 ([facility]) Basaglar KwikPen 100 UNIT/ML 02/15/2019 12:00:00 AM EST eCW1 ([facility]) Basaglar KwikPen 100 UNIT/ML 02/15/2019 12:00:00 AM EST eCW1 ([facility]) Basaglar KwikPen 100 UNIT/ML 02/15/2019 12:00:00 AM EST eCW1 ([facility]) Basaglar KwikPen 100 UNIT/ML 02/15/2019 12:00:00 AM EST eCW1 ([facility]) Basaglar KwikPen 100 UNIT/ML 02/15/2019 12:00:00 AM EST eCW1 ([facility]) Basaglar KwikPen 100 UNIT/ML 02/15/2019 12:00:00 AM EST eCW1 ([facility]) Basaglar KwikPen 100 UNIT/ML 02/15/2019 12:00:00 AM EST eCW1 ([facility]) Liam KwikPen 100 UNIT/ML 02/15/2019 12:00:00 AM EST eCW1 ([facility]) [place] KwikPen 100 UNIT/ML 02/15/2019 12:00:00 AM EST eCW1 [facility]) [place] KwikPen 100 UNIT/ML 02/15/2019 12:00:00 AM EST eCW1 [facility]) Liam KwikPen 100 UNIT/ML 02/15/2019 12:00:00 AM EST eCW1 ([facility]) [place] KwikPen 100 UNIT/ML 02/15/2019 12:00:00 AM EST eCW1 ([facility]) [place] KwikPen 100 UNIT/ML 02/15/2019 12:00:00 AM EST eCW1 [facility]
[2020-04-10 20:09] LABS: BASO % 0.6 % (0.0-1.0); EOS # 0.1 10^3/uL (0.0-0.5); EOS % 1.5 % (0.0-3.0); HEMOGLOBIN 14.4 g/dl (13.5-17.5); LYMPH # 1.6 10^3/uL (1.5-5.0); LYMPH % 29.5 % (24.0-44.0); MEAN CORPUSCULAR HEMOGLOBIN 30.3 pg (27.0-33.0); MEAN CORPUSCULAR HGB CONC 32.7 g/dl (32.0-36.5); MEAN CORPUSCULAR VOLUME 92.6 fl (80.0-96.0); MONO # 0.9 10^3/uL (0.0-0.8); MONO % 16.7 % (0.0-5.0); NEUTROPHILS # 2.8 10^3/uL (1.5-8.5); NEUTROPHILS % 51.3 % (36.0-66.0); PLATELET COUNT, AUTOMATED 167 10^3/uL (150-450); RED BLOOD COUNT 4.75 10^6/uL (4.30-6.10); WHITE BLOOD COUNT 5.5 10^3/uL (4.0-10.0)
--- OUTSIDE RECORDS SUMMARY | 2020-04-10 20:09 | CCD ---
Author Author [facility] Organization [facility] Address Unknown Phone Unavailable Care Team Providers Care Gluing Machine Adjuster Name Role Phone Ivania MILAN DPM Unavailable [...] Unavailable Swatsworth, R Nelida PA Unavailable Unavailable Paulina Constantino Lucille PA Unavailable Unavailable Dougie, L Lucille [...] is protected by Article 27-F of the [facility] Public Health law. If you continue you may have access to information: Regarding HIV / AIDS; Provided by facilities licensed or operated by the [facility] Office of Mental Health; or Provided by the [facility] Office for People With Developmental Disabilities. If such information is present, then the following [facility] mandated warning applies: This information has been [...] law may result in a fine or mcfp sentence or both. A general authorization for the release of medical or other information is NOT sufficient authorization for further disc losure. Family History Family Member Name Family Member Gender Family Member Status Date o f Status Description Data Source(s) Unknown Unknown Problem MEDENT ([facility], ) Father Unknown Unknown Problem MEDENT ([facility]) Encounters Encounter Providers Location Date Indications Data Source(s ) Office Visit Attender: Myrna Tamez MD Main office - [place] 04/01/2020 01:45:00 PM EST MEDENT ([facility]) Outpatient Attender: MARCK MILAN [facility] Office 03/14 09:15:00 AM EST MEDENT ([facility] [place] [address] [facility] [address] 03/24/2020 12:00:00 AM EST eCW1 ([facility]) [place] [address] [facility] [address] 03/24/2020 12:00:00 AM EST eCW1 ([facility]) Unknown [address] [facility] [place] [address] 03/20/2020 12:00:00 AM EST eCW1 ([facility]) [place] [address] [facility] [address] 03/05/2020 12:00:00 AM EST [facility]CW1 [facility] Outpatient [address] [facility] [facility] [place] [address] 02/28/2020 12:00:00 AM EST [facility] Office Visit Attender: Vivienne Dailey/Miroslava/Ashutosh/Hebert ndpaulina 02/14/2020 02:00:00 PM EST MEDENT ([facility] [place] [address] [facility] [address] 02/14/2020 12:00:00 AM EST [facility] Unknown [address] [facility] [place] [address] 02/06/2020 12:00:00 AM EST eCW1 [facility] [place]patient [address] [facility] [address] 02/06/2020 12:00:00 AM EST eCW1 [facility] Unknown [address] [facility] [place] [address] 01/28/2020 12:00:00 AM EST [facility] [place] [address] [facility] [address] 01/28/2020 12:00:00 AM EST eCW1 [facility] Unknown [address] [facility] [place] [address] 01/27/2020 12:00:00 AM EST eCW1 ([facility]) [place] [address] [facility] [address] 01/24/2020 12:00:00 AM EST eCW1 ([facility]) [place] [address] [facility] [address] 01/22/2020 12:00:00 AM EST eCW1 ([facility]) [place] [address] [facility] [address] 01/02/2020 12:00:00 AM EDT eCW1 ([facility]) [place] [address] [facility] [address] 01/02/2020 12:00:00 AM EDT eCW1 ([facility]) [place] [address] [facility] [address] 01/01/2020 12:00:00 AM EDT eCW1 ([facility]) [place] [address] [facility] [address] 12/29/2019 12:00:00 AM EDT eCW1 ([facility]) [place]patient [address] [facility] [address] 12/25/2019 12:00:00 AM EDT eCW1 ([facility]) [place] [address] [facility] [address] 12/20/2019 12:00:00 AM EDT eCW1 ([facility]) [place] [address] [facility] [address] 12/19/2019 12:00:00 AM EDT eCW1 ([facility]) [place] [address] [facility] [address] 12/04/2019 12:00:00 AM EDT eCW1 ([facility]) [place] [address] [facility] [address] 12/04/2019 12:00:00 AM EDT eCW1 ([facility]) [place] [address] [facility] [address] 12/04/2019 12:00:00 AM EDT eCW1 ([facility]) Outpatient Attender: GILBERT Dailey/Miroslava/Ashutosh/Rein dl 11/07/2019 11:30:00 AM EDT [facility] ([facility] [address] [address] 10/22/2019 12:00:00 AM EDT eCW1 ([facility]) Office Visit Attender: Vivienne Dailey/Miroslava/Ashutosh/Hebert ndl 10/15/2019 03:30:00 PM EDT [facility] ([facility] [place] [address] [facility] [address] 09/24/2019 12:00:00 AM EDT eCW1 ([facility]) Outpatient Attender: Nelida Marquis PAConsultant: Nelida lane PA 09/03/2019 07:45:00 AM EDT - 09/03/2019 08:45:00 AM EDT [facility] Outpatient Attender: Vivienne Dailey/Miroslava/Ashutosh/Hebert ndl 08/23/2019 08:30:00 AM EDT MED[facility] ([facility] [address] [address] 08/22/2019 12:00:00 AM EDT eCW1 ([facility]) Unknown [address] [facility] [address] 08/16/2019 12:00:00 AM EDT eCW1 ([facility]) [place] [address] [facility] [address] 08/16/2019 12:00:00 AM EDT eCW1 ([facility]) [place] [address] [facility] [address] 08/14/2019 12:00:00 AM EDT eCW1 ([facility]) [facility] [address] [facility] [address] 08/14/2019 12:00:00 AM EDT eCW1 ([facility]) [place]patient [address] [facility] [address] 08/13/2019 12:00:00 AM EDT eCW1 ([facility]) Outpatient Referrer: Nelida MOURA 08/09/2019 05:05: 00 AM EDT [facility] [address] [address] 08/08/2019 12:00:00 AM EDT eCW1 ([facility]) [facility] [address] [address] 07/31/2019 12:00:00 AM EDT eCW1 ([facility]) [facility] [address] [facility] [address] 07/10/2019 12:00:00 AM EDT eCW1 ([facility]) [facility] [address] [facility] [address] 06/30/2019 12:00:00 AM EDT eCW1 ([facility]) [facility] [address] [address] 06/26/2019 12:00:00 AM EDT eCW1 [facility] [place] [address] [facility] [address] 06/18/2019 12:00:00 AM EDT eCW1 ([facility]) Unknown [address] [facility] [address] 06/18/2019 12:00:00 AM EDT eCW1 ([facility]) [facility] [address] [facility] [address] 06/18/2019 12:00:00 AM EDT eCW1 ([facility]) [facility] [address] [facility] [address] 06/18/2019 12:00:00 AM EDT eCW1 ([facility]) [facility] [address] [place] [address], [place] [address] 06/11/2019 12:00:00 AM EDT eCW1 ([facility]) [facility] [address] [place] [address], [place] [address] 06/11/2019 12:00:00 AM EDT eCW1 ([facility]) [facility] [address] [place] [address], [place] [address] 06/11/2019 12:00:00 AM EDT eCW1 ([facility]) [facility] [address] [place] [address], [place] [address] 06/07/2019 12:00:00 AM EDT eCW1 ([facility]) [facility] [address] [place] [address], [place] [address] 06/04/2019 12:00:00 AM EDT eCW1 ([facility]) [facility] [address] [place] [address], [place] [address] 06/04/2019 12:00:00 AM EDT eCW1 ([facility]) [facility] [address] [place] [address], [place] [address] 05/31/2019 12:00:00 AM EDT eCW1 ([facility]) [facility] [address] [place] [address], [place] [address] 05/29/2019 12:00:00 AM EDT eCW1 ([facility]) [facility] [address] [place] [address], [place] [address] 2019 12:00:00 AM EDT eCW1 ([facility]) [facility] [address] [place] [address], [place] [address] 05/18/2019 12:00:00 AM EST eCW1 ([facility]) [address] [address] 05/18/2019 12:00:00 AM EST eCW1 ([facility]) [address] [address] 05/18/2019 12:00:00 AM EST eCW1 ([facility]) [address] [address] 05/04/2019 12:00:00 AM EST eCW1 ([facility]) [facility] [address] [place] [address] 04/26/2019 12:00:00 AM EST eCW1 ([facility]) [address] [address] 04/26/2019 12:00:00 AM EST eCW1 ([facility]) Outpatient Attender: Lucille MOURA Main Office 04/25/2019 11:45:0 0 AM EST MEDENT ([facility]) [address] [address] 04/19/2019 12:00:00 AM EST eCW1 ([facility]) [facility] [address] [place] [address] 04/17/2019 12:00:00 AM EST eCW1 ([facility]) [address] [address] 04/17/2019 12:00:00 AM EST eCW1 ([facility]) [facility] [address] [place] [address] 04/17/2019 12:00:00 AM EST eCW1 ([facility]) [address] [address] 03/28/2019 12:00:00 AM EST eCW1 ([facility]) [address] [address] 03/16/2019 12:00:00 AM EST eCW1 ([facility]) [address] [address] 03/16/2019 12:00:00 AM EST eCW1 ([facility]) [address] [place] [address] 03/16/2019 12:00:00 AM EST eCW1 ([facility]) [address] [place] [address] 03/12/2019 12:00:00 AM EST eCW1 ([facility]) [address] [address] 03/01/2019 12:00:00 AM EST eCW1 ([facility]) [address] [address] 02/27/2019 12:00:00 AM EST eCW1 ([facility]) [address] [address] 02/20/2019 12:00:00 AM EST eCW1 ([facility]) [address] [place] [address] 02/14/2019 12:00:00 AM EST eCW1 ([facility]) [address] [place] [address] 02/13/2019 12:00:00 AM EST eCW1 ([facility]) Medications Medication Brand Name Start Date Product [...] {tablet_as_needed} active Tizanidine HCl 4 MG eCW1 ([facility]) tizanidine 4 MG Oral Tablet TIZANIDINE HCL 02/28/2020 12:00:00 AM EST tablet 90 TAKE ONE TABLET BY MOUTH THREE TIMES A DAY NEEDED T PARDEEP ONE TABLET BY MOUTH THREE TIMES A DAY NEEDED SOLD: 03/31/2020 [facility] gabapentin 600 MG Oral Tablet Gabapentin 600 MG Gabapentin 6 00 MG 02/28/2020 12:00:00 AM EST 1.0 {tablet} active Ga bapentin 600 MG eCW1 ([facility]) tizanidine 4 MG Oral Tablet Tizanidine HCl 4 MG Tizanidine H Cl 4 MG 02/28/2020 12:00:00 AM EST 1.0 {tablet_as_needed} active Tizanidine HCl 4 MG eCW1 ([facility]) tizanidine 4 MG Oral Tablet Tizanidine HCl 4 MG Tizanidine H Cl 4 MG 02/28/2020 12:00:00 AM EST 1.0 {tablet_as_needed} active Tizanidine HCl 4 MG eCW1 ([facility]) tizanidine 4 MG Oral Tablet Tizanidine HCl 4 MG Tizanidine H Cl 4 MG 02/28/2020 12:00:00 AM EST 1.0 {tablet_as_needed} active Tizanidine HCl 4 MG eCW1 ([facility]) tizanidine 4 MG Oral Tablet TIZANIDINE HCL [...] {tablet_as_needed} active Tizanidine HCl 4 MG eCW1 ([facility]) gabapentin 600 MG Oral Tablet Gabapentin 600 MG Gabapentin 6 00 MG 02/28/2020 12:00:00 AM EST 1.0 {tablet} active Ga bapentin 600 MG eCW1 ([facility]) tizanidine 4 MG Oral Tablet Tizanidine HCl 4 MG Tizanidine H Cl 4 MG 02/28/2020 12:00:00 AM EST 1.0 {tablet_as_needed} active Tizanidine HCl 4 MG eCW1 ([facility]) gabapentin 600 MG Oral Tablet Gabapentin 600 MG Gabapentin 6 00 MG 02/28/2020 12:00:00 AM EST 1.0 {tablet} active Ga bapentin 600 MG eCW1 ([facility]) gabapentin 600 MG Oral Tablet Gabapentin 600 MG Gabapentin 6 00 MG 02/28/2020 12:00:00 AM EST 1.0 {tablet} active Ga bapentin 600 MG eCW1 ([facility]) gabapentin 600 MG Oral Tablet Gabapentin 600 MG Gabapentin 6 00 MG 02/28/2020 12:00:00 AM EST 1.0 {tablet} active Ga bapentin 600 MG eCW1 ([facility]) 600 mg 02/28/2020 12:00:00 AM EST tablet 90 TAKE ONE TABLET BY MOUTH THREE TIMES A DAY TAKE ONE TABLET BY MOUTH THREE TIMES A DAY SOLD: 03/03/2020 [facility] gabapentin 600 MG Oral Tablet Gabapentin 600 MG Gabapentin 6 00 MG 02/28/2020 12:00:00 AM EST 1.0 {tablet} active Ga bapentin 600 MG eCW1 ([facility]) tizanidine 4 MG Oral Tablet Tizanidine HCl 4 MG Tizanidine H Cl 4 MG 02/28/2020 12:00:00 AM EST 1.0 {tablet_as_needed} active Tizanidine HCl 4 MG eCW1 ([facility]) gabapentin 600 MG Oral Tablet Gabapentin 600 MG Gabapentin 6 00 MG 02/28/2020 12:00:00 AM EST 1.0 {tablet} active Ga bapentin 600 MG eCW1 ([facility]) tizanidine 4 MG Oral Tablet Tizanidine HCl 4 MG Tizanidine H Cl 4 MG 02/28/2020 12:00:00 AM EST 1.0 {tablet_as_needed} active Tizanidine HCl 4 MG eCW1 ([facility]) gabapentin 600 MG Oral Tablet Gabapentin 600 MG Gabapentin 6 00 MG 02/28/2020 12:00:00 AM EST 1.0 {tablet} active Ga bapentin 600 MG eCW1 ([facility]) BLOOD SUGAR DIAGNOSTIC 02/16/2020 12:00:00 AM EST [...] 02/14/2020 12:00:00 AM EST ORAL active MEDENT ([facility], ) 400 mg 01/28/2020 12:00:00 AM [...] active Lev albuterol Tartrate 45 MCG/ACT eCW1 ([facility]) 200 ACTUAT Levalbuterol 0.045 MG/ACTUAT Metered Dose Inhaler Levalbuterol Tartrate 45 MCG/ACT Levalbuterol Tartrate 45 MCG/ACT 01/08/2020 12:00:00 AM EDT 1.0 {puff_as_needed} active Lev albuterol Tartrate 45 MCG/ACT eCW1 ([facility]) 200 ACTUAT Levalbuterol 0.045 MG/ACTUAT Metered Dose Inhaler Levalbuterol Tartrate 45 MCG/ACT Levalbuterol Tartrate 45 MCG/ACT 01/08/2020 12:00:00 AM EDT 1.0 {puff_as_needed} active Lev albuterol Tartrate 45 MCG/ACT eCW1 ([facility]) 200 ACTUAT Levalbuterol 0.045 MG/ACTUAT Metered Dose Inhaler Levalbuterol Tartrate 45 MCG/ACT Levalbuterol Tartrate 45 MCG/ACT 01/08/2020 12:00:00 AM EDT 1.0 {puff_as_needed} active Lev albuterol Tartrate 45 MCG/ACT eCW1 ([facility]) 200 ACTUAT Levalbuterol 0.045 MG/ACTUAT Metered Dose Inhaler Levalbuterol Tartrate 45 MCG/ACT Levalbuterol Tartrate 45 MCG/ACT 01/08/2020 12:00:00 AM EDT 1.0 {puff_as_needed} active Lev albuterol Tartrate 45 MCG/ACT eCW1 ([facility]) 200 ACTUAT Levalbuterol 0.045 MG/ACTUAT Metered Dose Inhaler Levalbuterol Tartrate 45 MCG/ACT Levalbuterol Tartrate 45 MCG/ACT 01/08/2020 12:00:00 AM EDT 1.0 {puff_as_needed} active Lev albuterol Tartrate 45 MCG/ACT eCW1 ([facility]) 200 ACTUAT Levalbuterol 0.045 MG/ACTUAT Metered Dose Inhaler Levalbuterol Tartrate 45 MCG/ACT Levalbuterol Tartrate 45 MCG/ACT 01/08/2020 12:00:00 AM EDT 1.0 {puff_as_needed} active Lev albuterol Tartrate 45 MCG/ACT eCW1 ([facility]) 200 ACTUAT Levalbuterol 0.045 MG/ACTUAT Metered Dose Inhaler Levalbuterol Tartrate 45 MCG/ACT Levalbuterol Tartrate 45 MCG/ACT 01/08/2020 12:00:00 AM EDT 1.0 {puff_as_needed} active Lev albuterol Tartrate 45 MCG/ACT eCW1 ([facility]) 200 ACTUAT Levalbuterol 0.045 MG/ACTUAT Metered Dose Inhaler Levalbuterol Tartrate 45 MCG/ACT Levalbuterol Tartrate 45 MCG/ACT 01/08/2020 12:00:00 AM EDT 1.0 {puff_as_needed} active Lev albuterol Tartrate 45 MCG/ACT eCW1 ([facility]) 200 ACTUAT Levalbuterol 0.045 MG/ACTUAT Metered Dose Inhaler Levalbuterol Tartrate 45 MCG/ACT Levalbuterol Tartrate 45 MCG/ACT 01/08/2020 12:00:00 AM EDT 1.0 {puff_as_needed} active Lev albuterol Tartrate 45 MCG/ACT eCW1 ([facility]) 200 ACTUAT Levalbuterol 0.045 MG/ACTUAT Metered Dose Inhaler Levalbuterol Tartrate 45 MCG/ACT Levalbuterol Tartrate 45 MCG/ACT 01/08/2020 12:00:00 AM EDT 1.0 {puff_as_needed} active Lev albuterol Tartrate 45 MCG/ACT eCW1 ([facility]) 200 ACTUAT Levalbuterol 0.045 MG/ACTUAT Metered Dose Inhaler Levalbuterol Tartrate 45 MCG/ACT Levalbuterol Tartrate 45 MCG/ACT 01/08/2020 12:00:00 AM EDT 1.0 {puff_as_needed} active Lev albuterol Tartrate 45 MCG/ACT eCW1 ([facility]) 200 ACTUAT Levalbuterol 0.045 MG/ACTUAT Metered Dose Inhaler Levalbuterol Tartrate 45 MCG/ACT Levalbuterol Tartrate 45 MCG/ACT 01/08/2020 12:00:00 AM EDT 1.0 {puff_as_needed} active Lev albuterol Tartrate 45 MCG/ACT eCW1 ([facility]) 200 ACTUAT Levalbuterol 0.045 MG/ACTUAT Metered Dose Inhaler Levalbuterol Tartrate 45 MCG/ACT Levalbuterol Tartrate 45 MCG/ACT 01/08/2020 12:00:00 AM EDT 1.0 {puff_as_needed} active Lev albuterol Tartrate 45 MCG/ACT eCW1 ([facility]) 200 ACTUAT Levalbuterol 0.045 MG/ACTUAT Metered Dose Inhaler Levalbuterol Tartrate 45 MCG/ACT Levalbuterol Tartrate 45 MCG/ACT 01/08/2020 12:00:00 AM EDT 1.0 {puff_as_needed} active Lev albuterol Tartrate 45 MCG/ACT eCW1 ([facility]) 200 ACTUAT Levalbuterol 0.045 MG/ACTUAT Metered Dose Inhaler Levalbuterol Tartrate 45 MCG/ACT Levalbuterol Tartrate 45 MCG/ACT 01/08/2020 12:00:00 AM EDT 1.0 {puff_as_needed} active Lev albuterol Tartrate 45 MCG/ACT eCW1 ([facility]) 200 ACTUAT Levalbuterol 0.045 MG/ACTUAT Metered Dose Inhaler Levalbuterol Tartrate 45 MCG/ACT Levalbuterol Tartrate 45 MCG/ACT 01/08/2020 12:00:00 AM EDT 1.0 {puff_as_needed} active Lev albuterol Tartrate 45 MCG/ACT eCW1 ([facility]) 200 ACTUAT Levalbuterol 0.045 MG/ACTUAT Metered Dose Inhaler Levalbuterol Tartrate 45 MCG/ACT Levalbuterol Tartrate 45 MCG/ACT 01/08/2020 12:00:00 AM EDT 1.0 {puff_as_needed} active Lev albuterol Tartrate 45 MCG/ACT eCW1 ([facility]) 200 ACTUAT Levalbuterol 0.045 MG/ACTUAT Metered Dose Inhaler Levalbuterol Tartrate 45 MCG/ACT Levalbuterol Tartrate 45 MCG/ACT 01/08/2020 12:00:00 AM EDT 1.0 {puff_as_needed} active Lev albuterol Tartrate 45 MCG/ACT eCW1 ([facility]) 200 ACTUAT Levalbuterol 0.045 MG/ACTUAT Metered Dose Inhaler Levalbuterol Tartrate 45 MCG/ACT Levalbuterol Tartrate 45 MCG/ACT 01/08/2020 12:00:00 AM EDT 1.0 {puff_as_needed} active Lev albuterol Tartrate 45 MCG/ACT eCW1 ([facility]) 200 ACTUAT Levalbuterol 0.045 MG/ACTUAT Metered Dose Inhaler Levalbuterol Tartrate 45 MCG/ACT Levalbuterol Tartrate 45 MCG/ACT 01/08/2020 12:00:00 AM EDT 1.0 {puff_as_needed} active Lev albuterol Tartrate 45 MCG/ACT eCW1 ([facility]) 100 unit/mL 01/03/2020 12:00:00 AM EDT insulin [...] TABLET BY MOUTH EVERY DAY AT BE [facility] NEEDED SOLD: 01/01/2020 [facility] 300 [...] Kit 11/07/2019 12:00:00 AM EDT active MEDENT ([facility], ) Magnesium Hydroxide 80 MG/ML Oral Suspension Milk Of Magnesi a 11/07/2019 12:00:00 AM EDT ORAL active M EDENT ([facility], ) 500 mg 11/06/2019 12:00:00 AM EDT [...] EDT active Alcohol Swabs 70 % eCW1 ([facility]) Isopropyl Alcohol 0.7 ML/ML Medicated Pad Alcohol Swabs 70 % Alcohol Swabs 70 % 09/19/2019 12:00:00 AM EDT active Alcohol Swabs 70 % eCW1 ([facility]) Isopropyl Alcohol 0.7 ML/ML Medicated Pad Alcohol Swabs 70 % Alcohol Swabs 70 % 09/19/2019 12:00:00 AM EDT active Alcohol Swabs 70 % eCW1 ([facility]) Isopropyl Alcohol 0.7 ML/ML Medicated Pad Alcohol Swabs 70 % Alcohol Swabs 70 % 09/19/2019 12:00:00 AM EDT active Alcohol Swabs 70 % eCW1 ([facility]) Isopropyl Alcohol 0.7 ML/ML Medicated Pad Alcohol Swabs 70 % Alcohol Swabs 70 % 09/19/2019 12:00:00 AM EDT active Alcohol Swabs 70 % eCW1 ([facility]) Isopropyl Alcohol 0.7 ML/ML Medicated Pad Alcohol Swabs 70 % Alcohol Swabs 70 % 09/19/2019 12:00:00 AM EDT active Alcohol Swabs 70 % eCW1 ([facility]) Isopropyl Alcohol 0.7 ML/ML Medicated Pad Alcohol Swabs 70 % Alcohol Swabs 70 % 09/19/2019 12:00:00 AM EDT active Alcohol Swabs 70 % eCW1 ([facility]) Isopropyl Alcohol 0.7 ML/ML Medicated Pad Alcohol Swabs 70 % Alcohol Swabs 70 % 09/19/2019 12:00:00 AM EDT active Alcohol Swabs 70 % eCW1 ([facility]) Isopropyl Alcohol 0.7 ML/ML Medicated Pad Alcohol Swabs 70 % Alcohol Swabs 70 % 09/19/2019 12:00:00 AM EDT active Alcohol Swabs 70 % eCW1 ([facility]) Isopropyl Alcohol 0.7 ML/ML Medicated Pad Alcohol Swabs 70 % Alcohol Swabs 70 % 09/19/2019 12:00:00 AM EDT active Alcohol Swabs 70 % eCW1 ([facility]) Isopropyl Alcohol 0.7 ML/ML Medicated Pad Alcohol Swabs 70 % Alcohol Swabs 70 % 09/19/2019 12:00:00 AM EDT active Alcohol Swabs 70 % eCW1 ([facility]) Isopropyl Alcohol 0.7 ML/ML Medicated Pad Alcohol Swabs 70 % Alcohol Swabs 70 % 09/19/2019 12:00:00 AM EDT active Alcohol Swabs 70 % eCW1 ([facility]) Isopropyl Alcohol 0.7 ML/ML Medicated Pad Alcohol Swabs 70 % Alcohol Swabs 70 % 09/19/2019 12:00:00 AM EDT active Alcohol Swabs 70 % eCW1 ([facility]) Isopropyl Alcohol 0.7 ML/ML Medicated Pad Alcohol Swabs 70 % Alcohol Swabs 70 % 09/19/2019 12:00:00 AM EDT active Alcohol Swabs 70 % eCW1 ([facility]) Isopropyl Alcohol 0.7 ML/ML Medicated Pad Alcohol Swabs 70 % Alcohol Swabs 70 % 09/19/2019 12:00:00 AM EDT active Alcohol Swabs 70 % eCW1 ([facility]) Isopropyl Alcohol 0.7 ML/ML Medicated Pad Alcohol Swabs 70 % Alcohol Swabs 70 % 09/19/2019 12:00:00 AM EDT active Alcohol Swabs 70 % eCW1 ([facility]) Isopropyl Alcohol 0.7 ML/ML Medicated Pad Alcohol Swabs 70 % Alcohol Swabs 70 % 09/19/2019 12:00:00 AM EDT active Alcohol Swabs 70 % eCW1 ([facility]) Isopropyl Alcohol 0.7 ML/ML Medicated Pad Alcohol Swabs 70 % Alcohol Swabs 70 % 09/19/2019 12:00:00 AM EDT active Alcohol Swabs 70 % eCW1 ([facility]) Isopropyl Alcohol 0.7 ML/ML Medicated Pad Alcohol Swabs 70 % Alcohol Swabs 70 % 09/19/2019 12:00:00 AM EDT active Alcohol Swabs 70 % eCW1 ([facility]) Isopropyl Alcohol 0.7 ML/ML Medicated Pad Alcohol Swabs 70 % Alcohol Swabs 70 % 09/19/2019 12:00:00 AM EDT active Alcohol Swabs 70 % eCW1 ([facility]) Isopropyl Alcohol 0.7 ML/ML Medicated Pad Alcohol Swabs 70 % Alcohol Swabs 70 % 09/19/2019 12:00:00 AM EDT active Alcohol Swabs 70 % eCW1 ([facility]) Isopropyl Alcohol 0.7 ML/ML Medicated Pad Alcohol Swabs 70 % Alcohol Swabs 70 % 09/19/2019 12:00:00 AM EDT active Alcohol Swabs 70 % [email or web address] ([facility]) Isopropyl Alcohol 0.7 ML/ML Medicated Pad Alcohol Swabs 70 % Alcohol Swabs 70 % 09/19/2019 12:00:00 AM EDT active Alcohol Swabs 70 % [email or web address] ([facility]) Isopropyl Alcohol 0.7 ML/ML Medicated Pad Alcohol Swabs 70 % Alcohol Swabs 70 % 09/19/2019 12:00:00 AM EDT active Alcohol Swabs 70 % [email or web address] ([facility]) Isopropyl Alcohol 0.7 ML/ML Medicated Pad Alcohol Swabs 70 % Alcohol Swabs 70 % 09/19/2019 12:00:00 AM EDT active Alcohol Swabs 70 % [email or web address] ([facility]) Isopropyl Alcohol 0.7 ML/ML Medicated Pad Alcohol Swabs 70 % Alcohol Swabs 70 % 09/19/2019 12:00:00 AM EDT active Alcohol Swabs 70 % [email or web address] ([facility]) Isopropyl Alcohol 0.7 ML/ML Medicated Pad Alcohol Swabs 70 % Alcohol Swabs 70 % 09/19/2019 12:00:00 AM EDT active Alcohol Swabs 70 % [email or web address] ([facility]) Isopropyl Alcohol 0.7 ML/ML Medicated Pad Alcohol Swabs 70 % Alcohol Swabs 70 % 09/19/2019 12:00:00 AM EDT active Alcohol Swabs 70 % eCW1 ([facility]) Isopropyl Alcohol 0.7 ML/ML Medicated Pad Alcohol Swabs 70 % Alcohol Swabs 70 % 09/19/2019 12:00:00 AM EDT active Alcohol Swabs 70 % eCW1 ([facility]) Isopropyl Alcohol 0.7 ML/ML Medicated Pad Alcohol Swabs 70 % Alcohol Swabs 70 % 09/19/2019 12:00:00 AM EDT active Alcohol Swabs 70 % eCW1 ([facility]) Isopropyl Alcohol 0.7 ML/ML Medicated Pad Alcohol Swabs 70 % Alcohol Swabs 70 % 09/19/2019 12:00:00 AM EDT active Alcohol Swabs 70 % eCW1 ([facility]) Isopropyl Alcohol 0.7 ML/ML Medicated Pad Alcohol Swabs 70 % Alcohol Swabs 70 % 09/19/2019 12:00:00 AM EDT active Alcohol Swabs 70 % eCW1 ([facility]) Isopropyl Alcohol 0.7 ML/ML Medicated Pad Alcohol Swabs 70 % Alcohol Swabs 70 % 09/19/2019 12:00:00 AM EDT active Alcohol Swabs 70 % eCW1 ([facility]) Isopropyl Alcohol 0.7 ML/ML Medicated Pad Alcohol Swabs 70 % Alcohol Swabs 70 % 09/19/2019 12:00:00 AM EDT active Alcohol Swabs 70 % eCW1 ([facility]) Isopropyl Alcohol 0.7 ML/ML Medicated Pad Alcohol Swabs 70 % Alcohol Swabs 70 % 09/19/2019 12:00:00 AM EDT active Alcohol Swabs 70 % eCW1 ([facility]) BD Pen Needle Jessica U/F 32G X 4 MM BD Pen Needle Jessica U/F 32G X 4 MM 09/17/2019 12:00:00 AM EDT active BD Pen N eedle Jessica U/F 32G X 4 MM eCW1 ([facility]) BD Pen Needle Jessica U/F 32G X 4 MM BD Pen Needle Jessica U/F 32G X 4 MM 09/17/2019 12:00:00 AM EDT active BD Pen N eedle Jessica U/F 32G X 4 MM eCW1 ([facility]) BD Pen Needle Jessica U/F 32G X 4 MM BD Pen Needle Jessica U/F 32G X 4 MM 09/17/2019 12:00:00 AM EDT active BD Pen N eedle Jessica U/F 32G X 4 MM eCW1 ([facility]) BD Pen Needle Jessica U/F 32G X 4 MM BD Pen Needle Jessica U/F 32G X 4 MM 09/17/2019 12:00:00 AM EDT active BD Pen N eedle Jessica U/F 32G X 4 MM eCW1 ([facility]) BD Pen Needle Jessica U/F 32G X 4 MM BD Pen Needle Jessica U/F 32G X 4 MM 09/17/2019 12:00:00 AM EDT active BD Pen N eedle Jessica U/F 32G X 4 MM eCW1 ([facility]) BD Pen Needle Jessica U/F 32G X 4 MM BD Pen Needle Jessica U/F 32G X 4 MM 09/17/2019 12:00:00 AM EDT active BD Pen N eedle Jessica U/F 32G X 4 MM eCW1 ([facility]) BD Pen Needle Jessica U/F 32G X 4 MM BD Pen Needle Jessica U/F 32G X 4 MM 09/17/2019 12:00:00 AM EDT active BD Pen N eedle Jessica U/F 32G X 4 MM eCW1 ([facility]) BD Pen Needle Jessica U/F 32G X 4 MM BD Pen Needle Jessica U/F 32G X 4 MM 09/17/2019 12:00:00 AM EDT active BD Pen N eedle Jessica U/F 32G X 4 MM eCW1 ([facility]) BD Pen Needle Jessica U/F 32G X 4 MM BD Pen Needle Jessica U/F 32G X 4 MM 09/17/2019 12:00:00 AM EDT active BD Pen N eedle Jessica U/F 32G X 4 MM eCW1 ([facility]) BD Pen Needle Jessica U/F 32G X 4 MM BD Pen Needle Jessica U/F 32G X 4 MM 09/17/2019 12:00:00 AM EDT active BD Pen N eedle Jessica U/F 32G X 4 MM eCW1 ([facility]) BD Pen Needle Jessica U/F 32G X 4 MM BD Pen Needle Jessica U/F 32G X 4 MM 09/17/2019 12:00:00 AM EDT active BD Pen N eedle Jessica U/F 32G X 4 MM eCW1 ([facility]) BD Pen Needle Jessica U/F 32G X 4 MM BD Pen Needle Jessica U/F 32G X 4 MM 09/17/2019 12:00:00 AM EDT active BD Pen N eedle Jessica U/F 32G X 4 MM eCW1 ([facility]) BD Pen Needle Jessica U/F 32G X 4 MM BD Pen Needle Jessica U/F 32G X 4 MM 09/17/2019 12:00:00 AM EDT active BD Pen N eedle Jessica U/F 32G X 4 MM eCW1 ([facility]) BD Pen Needle Jessica U/F 32G X 4 MM BD Pen Needle Jessica U/F 32G X 4 MM 09/17/2019 12:00:00 AM EDT active BD Pen N eedle Jessica U/F 32G X 4 MM eCW1 ([facility]) BD Pen Needle Jessica U/F 32G X 4 MM BD Pen Needle Jessica U/F 32G X 4 MM 09/17/2019 12:00:00 AM EDT active BD Pen N eedle Jessica U/F 32G X 4 MM eCW1 ([facility]) BD Pen Needle Jessica U/F 32G X 4 MM BD Pen Needle Jessica U/F 32G X 4 MM 09/17/2019 12:00:00 AM EDT active BD Pen N eedle Jessica U/F 32G X 4 MM eCW1 ([facility]) BD Pen Needle Jessica U/F 32G X 4 MM BD Pen Needle Jessica U/F 32G X 4 MM 09/17/2019 12:00:00 AM EDT active BD Pen N eedle Jessica U/F 32G X 4 MM eCW1 ([facility]) BD Pen Needle Jessica U/F 32G X 4 MM BD Pen Needle Jessica U/F 32G X 4 MM 09/17/2019 12:00:00 AM EDT active BD Pen N eedle Jessica U/F 32G X 4 MM eCW1 ([facility]) BD Pen Needle Jessica U/F 32G X 4 MM BD Pen Needle Jessica U/F 32G X 4 MM 09/17/2019 12:00:00 AM EDT active BD Pen N eedle Jessica U/F 32G X 4 MM eCW1 ([facility]) BD Pen Needle Jessica U/F 32G X 4 MM BD Pen Needle Jessica U/F 32G X 4 MM 09/17/2019 12:00:00 AM EDT active BD Pen N eedle Jessica U/F 32G X 4 MM eCW1 ([facility]) BD Pen Needle Jessica U/F 32G X 4 MM BD Pen Needle Jessica U/F 32G X 4 MM 09/17/2019 12:00:00 AM EDT active BD Pen N eedle Jessica U/F 32G X 4 MM eCW1 ([facility]) BD Pen Needle Jessica U/F 32G X 4 MM BD Pen Needle Jessica U/F 32G X 4 MM 09/17/2019 12:00:00 AM EDT active BD Pen N eedle Jessica U/F 32G X 4 MM eCW1 ([facility]) BD Pen Needle Jessica U/F 32G X 4 MM BD Pen Needle Jessica U/F 32G X 4 MM 09/17/2019 12:00:00 AM EDT active BD Pen N eedle Jessica U/F 32G X 4 MM eCW1 ([facility]) BD Pen Needle Jessica U/F 32G X 4 MM BD Pen Needle Jessica U/F 32G X 4 MM 09/17/2019 12:00:00 AM EDT active BD Pen N eedle Jessica U/F 32G X 4 MM eCW1 ([facility]) BD Pen Needle Jessica U/F 32G X 4 MM BD Pen Needle Jessica U/F 32G X 4 MM 09/17/2019 12:00:00 AM EDT active BD Pen N eedle Jessica U/F 32G X 4 MM eCW1 ([facility]) BD Pen Needle Jessica U/F 32G X 4 MM BD Pen Needle Jessica U/F 32G X 4 MM 09/17/2019 12:00:00 AM EDT active BD Pen N eedle Jessica U/F 32G X 4 MM eCW1 ([facility]) BD Pen Needle Jessica U/F 32G X 4 MM BD Pen Needle Jesisca U/F 32G X 4 MM 09/17/2019 12:00:00 AM EDT active BD Pen N eedle Jessica U/F 32G X 4 MM eCW1 ([facility]) BD Pen Needle Jessica U/F 32G X 4 MM BD Pen Needle Jessica U/F 32G X 4 MM 09/17/2019 12:00:00 AM EDT active BD Pen N eedle Jessica U/F 32G X 4 MM eCW1 ([facility]) BD Pen Needle Jessica U/F 32G X 4 MM BD Pen Needle Jessica U/F 32G X 4 MM 09/17/2019 12:00:00 AM EDT active BD Pen N eedle Jessica U/F 32G X 4 MM eCW1 ([facility]) BD Pen Needle Jessica U/F 32G X 4 MM BD Pen Needle Jessica U/F 32G X 4 MM 09/17/2019 12:00:00 AM EDT active BD Pen N eedle Jessica U/F 32G X 4 MM eCW1 ([facility]) BD Pen Needle Jessica U/F 32G X 4 MM BD Pen Needle Jessica U/F 32G X 4 MM 09/17/2019 12:00:00 AM EDT active BD Pen N eedle Jessica U/F 32G X 4 MM eCW1 ([facility]) BD Pen Needle Jessica U/F 32G X 4 MM BD Pen Needle Jessica U/F 32G X 4 MM 09/17/2019 12:00:00 AM EDT active BD Pen N eedle Jessica U/F 32G X 4 MM eCW1 ([facility]) BD Pen Needle Jessica U/F 32G X 4 MM BD Pen Needle Jessica U/F 32G X 4 MM 09/17/2019 12:00:00 AM EDT active BD Pen N eedle Jessica U/F 32G X 4 MM eCW1 ([facility]) BD Pen Needle Jessica U/F 32G X 4 MM BD Pen Needle Jessica U/F 32G X 4 MM 09/17/2019 12:00:00 AM EDT active BD Pen N eedle Jessica U/F 32G X 4 MM eCW1 ([facility]) BD Pen Needle Jessica U/F 32G X 4 MM BD Pen Needle Jessica U/F 32G X 4 MM 09/17/2019 12:00:00 AM EDT active BD Pen N eedle Jessica U/F 32G X 4 MM eCW1 ([facility]) Chantix Starting Month Juan Miguel Chantix Starting Month Juan Miguel 2019 12:00:00 AM EDT completed MEDENT ([facility]) 14 ACTUAT fluticasone furoate 0.1 MG/ACTUAT Dry Powder Inhaler [Arnuity] Arnuity Ellipta 08/23/2019 12:00:00 AM EDT RESPIRATORY active MEDENT ([facility]) 25 mg 08/14/2019 12:00:00 AM EDT tablet 30 TAKE ONE TABLET BY MOUTH EVERY DAY NEEDED TAKE ONE TABLET BY MOUTH EVERY DAY NEEDED SOLD: 08/14/2019 [facility] pantoprazole 40 MG Delayed Release Oral Tablet [Proton ix] Protonix 40 MG Protonix 40 MG 08/13/2019 12:00:00 AM EDT 1.0 {tablet} active Protonix 40 MG eCW1 ([facility]) sildenafil 25 MG Oral Tablet [Viagra] Viagra 25 MG Viagra 25 MG 08/13/2019 12:00:00 AM EDT 1.0 {tablet_as_needed} active Viagra 25 MG eCW1 ([facility]) sildenafil 25 MG Oral Tablet [Viagra] Viagra 25 MG Viagra 25 MG 08/13/2019 12:00:00 AM EDT 1.0 {tablet_as_needed} active Viagra 25 MG eCW1 ([facility]) sildenafil 25 MG Oral Tablet [Viagra] Viagra 25 MG Viagra 25 MG 08/13/2019 12:00:00 AM EDT 1.0 {tablet_as_needed} active Viagra 25 MG eCW1 ([facility]) pantoprazole 40 MG Delayed Release Oral Tablet [Proton ix] Protonix 40 MG Protonix 40 MG 08/13/2019 12:00:00 AM EDT 1.0 {tablet} active Protonix 40 MG eCW1 ([facility]) pantoprazole 40 MG Delayed Release Oral Tablet [Proton ix] Protonix 40 MG Protonix 40 MG 08/13/2019 12:00:00 AM EDT 1.0 {tablet} active Protonix 40 MG eCW1 ([facility]) pantoprazole 40 MG Delayed Release Oral Tablet [Proton ix] Protonix 40 MG Protonix 40 MG 08/13/2019 12:00:00 AM EDT 1.0 {tablet} active Protonix 40 MG eCW1 ([facility]) Tamsulosin hydrochloride 0.4 MG Oral Capsule [Flomax] Flomax 0.4 MG Flomax 0.4 MG 08/13/2019 12:00:00 AM EDT 1.0 {capsule} active Flomax 0.4 MG eCW1 ([facility]) Tamsulosin hydrochloride 0.4 MG Oral Capsule [Flomax] Flomax 0.4 MG Flomax 0.4 MG 08/13/2019 12:00:00 AM EDT 1.0 {capsule} active Flomax 0.4 MG eCW1 ([facility]) sildenafil 25 MG Oral Tablet [Viagra] Viagra 25 MG Viagra 25 MG 08/13/2019 12:00:00 AM EDT 1.0 {tablet_as_needed} active Viagra 25 MG eCW1 ([facility]) Tamsulosin hydrochloride 0.4 MG Oral Capsule [Flomax] Flomax 0.4 MG Flomax 0.4 MG 08/13/2019 12:00:00 AM EDT 1.0 {capsule} active Flomax 0.4 MG eCW1 ([facility]) Tamsulosin hydrochloride 0.4 MG Oral Capsule [Flomax] Flomax 0.4 MG Flomax 0.4 MG 08/13/2019 12:00:00 AM EDT 1.0 {capsule} active Flomax 0.4 MG eCW1 ([facility]) Ergocalciferol 58097 UNT Oral Capsule Ergocalciferol 1 .25 MG (18016 UT) Ergocalciferol 1.25 MG (59371 UT) 06/18/2019 12:00:00 AM EDT 1.0 {c apsule} active Ergocalciferol 1.25 MG (5 0000 UT) eCW1 ([facility]) canagliflozin 100 MG Oral Tablet [Invokana] Invokana 100 MG Invokana 100 MG 06/18/2019 12:00:00 AM EDT active Invokana 100 MG eCW1 ([facility]) canagliflozin 100 MG Oral Tablet [Invokana] Invokana 100 MG Invokana 100 MG 06/18/2019 12:00:00 AM EDT active Invokana 100 MG eCW1 ([facility]) canagliflozin 100 MG Oral Tablet [Invokana] Invokana 100 MG Invokana 100 MG 06/18/2019 12:00:00 AM EDT active Invokana 100 MG eCW1 ([facility]) canagliflozin 100 MG Oral Tablet [Invokana] Invokana 100 MG Invokana 100 MG 06/18/2019 12:00:00 AM EDT active Invokana 100 MG eCW1 ([facility]) canagliflozin 100 MG Oral Tablet [Invokana] Invokana 100 MG Invokana 100 MG 06/18/2019 12:00:00 AM EDT active Invokana 100 MG eCW1 ([facility]) canagliflozin 100 MG Oral Tablet [Invokana] Invokana 100 MG Invokana 100 MG 06/18/2019 12:00:00 AM EDT active Invokana 100 MG eCW1 ([facility]) canagliflozin 100 MG Oral Tablet [Invokana] Invokana 100 MG Invokana 100 MG 06/18/2019 12:00:00 AM EDT active Invokana 100 MG eCW1 ([facility]) Ergocalciferol 73716 UNT Oral Capsule Ergocalciferol 1 .25 MG (76972 UT) Ergocalciferol 1.25 MG (83141 UT) 06/18/2019 12:00:00 AM EDT 1.0 {c apsule} active Ergocalciferol 1.25 MG (5 0000 UT) eCW1 ([facility]) Ergocalciferol 29199 UNT Oral Capsule Ergocalciferol 1 .25 MG (75380 UT) Ergocalciferol 1.25 MG (50719 UT) 06/18/2019 12:00:00 AM EDT 1.0 {c apsule} active Ergocalciferol 1.25 MG (5 0000 UT) eCW1 ([facility]) Ergocalciferol 57048 UNT Oral Capsule Ergocalciferol 1 .25 MG (15095 UT) Ergocalciferol 1.25 MG (50971 UT) 06/18/2019 12:00:00 AM EDT 1.0 {c apsule} active Ergocalciferol 1.25 MG (5 0000 UT) eCW1 ([facility]) canagliflozin 100 MG Oral Tablet [Invokana] Invokana 100 MG Invokana 100 MG 06/18/2019 12:00:00 AM EDT active Invokana 100 MG eCW1 ([facility]) canagliflozin 100 MG Oral Tablet [Invokana] Invokana 100 MG Invokana 100 MG 06/18/2019 12:00:00 AM EDT active Invokana 100 MG eCW1 ([facility]) Ergocalciferol 10461 UNT Oral Capsule Ergocalciferol 1 .25 MG (39834 UT) Ergocalciferol 1.25 MG (78810 UT) 06/18/2019 12:00:00 AM EDT 1.0 {c apsule} active Ergocalciferol 1.25 MG (5 0000 UT) eCW1 ([facility]) Ergocalciferol 03419 UNT Oral Capsule Ergocalciferol 1 .25 MG (53404 UT) Ergocalciferol 1.25 MG (58345 UT) 06/18/2019 12:00:00 AM EDT 1.0 {c apsule} active Ergocalciferol 1.25 MG (5 0000 UT) eCW1 ([facility]) Ergocalciferol 83374 UNT Oral Capsule Ergocalciferol 1 .25 MG (60353 UT) Ergocalciferol 1.25 MG (26266 UT) 06/18/2019 12:00:00 AM EDT 1.0 {c apsule} active Ergocalciferol 1.25 MG (5 0000 UT) eCW1 ([facility]) Ergocalciferol 62411 UNT Oral Capsule Ergocalciferol 1 .25 MG (57648 UT) Ergocalciferol 1.25 MG (46941 UT) 06/18/2019 12:00:00 AM EDT 1.0 {c apsule} active Ergocalciferol 1.25 MG (5 0000 UT) eCW1 ([facility]) canagliflozin 100 MG Oral Tablet [Invokana] Invokana 100 MG Invokana 100 MG 06/18/2019 12:00:00 AM EDT active Invokana 100 MG eCW1 ([facility]) Ergocalciferol 15658 UNT Oral Capsule Ergocalciferol 1 .25 MG (37612 UT) Ergocalciferol 1.25 MG (37222 UT) 06/18/2019 12:00:00 AM EDT 1.0 {c apsule} active Ergocalciferol 1.25 MG (5 0000 UT) eCW1 ([facility]) canagliflozin 100 MG Oral Tablet [Invokana] Invokana 100 MG Invokana 100 MG 06/18/2019 12:00:00 AM EDT active Invokana 100 MG eCW1 ([facility]) Ergocalciferol 01601 UNT Oral Capsule Ergocalciferol 1 .25 MG (25557 UT) Ergocalciferol 1.25 MG (56676 UT) 06/18/2019 12:00:00 AM EDT 1.0 {c apsule} active Ergocalciferol 1.25 MG (5 0000 UT) eCW1 ([facility]) Ergocalciferol 40481 UNT Oral Capsule Ergocalciferol 1 .25 MG (59471 UT) Ergocalciferol 1.25 MG (83287 UT) 06/18/2019 12:00:00 AM EDT 1.0 {c apsule} active Ergocalciferol 1.25 MG (5 0000 UT) eCW1 ([facility]) Ergocalciferol 85635 UNT Oral Capsule Ergocalciferol 1 .25 MG (98658 UT) Ergocalciferol 1.25 MG (27210 UT) 06/18/2019 12:00:00 AM EDT 1.0 {c apsule} active Ergocalciferol 1.25 MG (5 0000 UT) eCW1 ([facility]) canagliflozin 100 MG Oral Tablet [Invokana] Invokana 100 MG Invokana 100 MG 06/18/2019 12:00:00 AM EDT active Invokana 100 MG eCW1 ([facility]) canagliflozin 100 MG Oral Tablet [Invokana] Invokana 100 MG Invokana 100 MG 06/18/2019 12:00:00 AM EDT active Invokana 100 MG eCW1 ([facility]) Ergocalciferol 29629 UNT Oral Capsule Ergocalciferol 1 .25 MG (62323 UT) Ergocalciferol 1.25 MG (78376 UT) 06/18/2019 12:00:00 AM EDT 1.0 {c apsule} active Ergocalciferol 1.25 MG (5 0000 UT) eCW1 ([facility]) Ergocalciferol 11219 UNT Oral Capsule Ergocalciferol 1 .25 MG (85973 UT) Ergocalciferol 1.25 MG (95348 UT) 06/18/2019 12:00:00 AM EDT 1.0 {c apsule} active Ergocalciferol 1.25 MG (5 0000 UT) eCW1 ([facility]) Ergocalciferol 45023 UNT Oral Capsule Ergocalciferol 1 .25 MG (97920 UT) Ergocalciferol 1.25 MG (96535 UT) 06/18/2019 12:00:00 AM EDT 1.0 {c apsule} active Ergocalciferol 1.25 MG (5 0000 UT) eCW1 ([facility]) Ergocalciferol 88186 UNT Oral Capsule Ergocalciferol 1 .25 MG (38878 UT) Ergocalciferol 1.25 MG (79819 UT) 06/18/2019 12:00:00 AM EDT 1.0 {c apsule} active Ergocalciferol 1.25 MG (5 0000 UT) eCW1 ([facility]) Ergocalciferol 43934 UNT Oral Capsule Ergocalciferol 1 .25 MG (16305 UT) Ergocalciferol 1.25 MG (67621 UT) 06/18/2019 12:00:00 AM EDT 1.0 {c apsule} active Ergocalciferol 1.25 MG (5 0000 UT) eCW1 ([facility]) canagliflozin 100 MG Oral Tablet [Invokana] Invokana 100 MG Invokana 100 MG 06/18/2019 12:00:00 AM EDT active Invokana 100 MG eCW1 ([facility]) Ergocalciferol 17525 UNT Oral Capsule Ergocalciferol 1 .25 MG (40607 UT) Ergocalciferol 1.25 MG (00548 UT) 06/18/2019 12:00:00 AM EDT 1.0 {c apsule} active Ergocalciferol 1.25 MG (5 0000 UT) eCW1 ([facility]) canagliflozin 100 MG Oral Tablet [Invokana] Invokana 100 MG Invokana 100 MG 06/18/2019 12:00:00 AM EDT active Invokana 100 MG eCW1 ([facility]) Ergocalciferol 93512 UNT Oral Capsule Ergocalciferol 1 .25 MG (43877 UT) Ergocalciferol 1.25 MG (04357 UT) 06/18/2019 12:00:00 AM EDT 1.0 {c apsule} active Ergocalciferol 1.25 MG (5 0000 UT) eCW1 ([facility]) canagliflozin 100 MG Oral Tablet [Invokana] Invokana 100 MG Invokana 100 MG 06/18/2019 12:00:00 AM EDT active Invokana 100 MG eCW1 ([facility]) Ergocalciferol 45148 UNT Oral Capsule Ergocalciferol 1 .25 MG (51684 UT) Ergocalciferol 1.25 MG (02805 UT) 06/18/2019 12:00:00 AM EDT 1.0 {c apsule} active Ergocalciferol 1.25 MG (5 0000 UT) eCW1 ([facility]) canagliflozin 100 MG Oral Tablet [Invokana] Invokana 100 MG Invokana 100 MG 06/18/2019 12:00:00 AM EDT active Invokana 100 MG eCW1 ([facility]) canagliflozin 100 MG Oral Tablet [Invokana] Invokana 100 MG Invokana 100 MG 06/18/2019 12:00:00 AM EDT active Invokana 100 MG eCW1 ([facility]) canagliflozin 100 MG Oral Tablet [Invokana] Invokana 100 MG Invokana 100 MG 06/18/2019 12:00:00 AM EDT active Invokana 100 MG eCW1 ([facility]) Ergocalciferol 68343 UNT Oral Capsule Ergocalciferol 1 .25 MG (20720 UT) Ergocalciferol 1.25 MG (10759 UT) 06/18/2019 12:00:00 AM EDT 1.0 {c apsule} active Ergocalciferol 1.25 MG (5 0000 UT) eCW1 ([facility]) canagliflozin 100 MG Oral Tablet [Invokana] Invokana 100 MG Invokana 100 MG 06/18/2019 12:00:00 AM EDT active Invokana 100 MG eCW1 ([facility]) Ergocalciferol 19842 UNT Oral Capsule Ergocalciferol 1 .25 MG (37195 UT) Ergocalciferol 1.25 MG (97736 UT) 06/18/2019 12:00:00 AM EDT 1.0 {c apsule} active Ergocalciferol 1.25 MG (5 0000 UT) eCW1 ([facility]) Ergocalciferol 63814 UNT Oral Capsule Ergocalciferol 1 .25 MG (22048 UT) Ergocalciferol 1.25 MG (34795 UT) 06/18/2019 12:00:00 AM EDT 1.0 {c apsule} active Ergocalciferol 1.25 MG (5 0000 UT) eCW1 ([facility]) canagliflozin 100 MG Oral Tablet [Invokana] Invokana 100 MG Invokana 100 MG 06/18/2019 12:00:00 AM EDT active Invokana 100 MG eCW1 ([facility]) Ergocalciferol 51614 UNT Oral Capsule Ergocalciferol 1 .25 MG (04252 UT) Ergocalciferol 1.25 MG (53415 UT) 06/18/2019 12:00:00 AM EDT 1.0 {c apsule} active Ergocalciferol 1.25 MG (5 0000 UT) eCW1 ([facility]) canagliflozin 100 MG Oral Tablet [Invokana] Invokana 100 MG Invokana 100 MG 06/18/2019 12:00:00 AM EDT active Invokana 100 MG eCW1 ([facility]) Ergocalciferol 33802 UNT Oral Capsule Ergocalciferol 1 .25 MG (93920 UT) Ergocalciferol 1.25 MG (42989 UT) 06/18/2019 12:00:00 AM EDT 1.0 {c apsule} active Ergocalciferol 1.25 MG (5 0000 UT) eCW1 ([facility]) Ergocalciferol 19802 UNT Oral Capsule Ergocalciferol 1 .25 MG (63630 UT) Ergocalciferol 1.25 MG (65483 UT) 06/18/2019 12:00:00 AM EDT 1.0 {c apsule} active Ergocalciferol 1.25 MG (5 0000 UT) eCW1 ([facility]) canagliflozin 100 MG Oral Tablet [Invokana] Invokana 100 MG Invokana 100 MG 06/18/2019 12:00:00 AM EDT active Invokana 100 MG eCW1 ([facility]) Ergocalciferol 22809 UNT Oral Capsule Ergocalciferol 1 .25 MG (41708 UT) Ergocalciferol 1.25 MG (06363 UT) 06/18/2019 12:00:00 AM EDT 1.0 {c apsule} active Ergocalciferol 1.25 MG (5 0000 UT) eCW1 ([facility]) Ergocalciferol 73284 UNT Oral Capsule Ergocalciferol 1 .25 MG (44573 UT) Ergocalciferol 1.25 MG (82353 UT) 06/18/2019 12:00:00 AM EDT 1.0 {c apsule} active Ergocalciferol 1.25 MG (5 0000 UT) eCW1 ([facility]) canagliflozin 100 MG Oral Tablet [Invokana] Invokana 100 MG Invokana 100 MG 06/18/2019 12:00:00 AM EDT active Invokana 100 MG eCW1 ([facility]) Ergocalciferol 33274 UNT Oral Capsule Ergocalciferol 1 .25 MG (77304 UT) Ergocalciferol 1.25 MG (21224 UT) 06/18/2019 12:00:00 AM EDT 1.0 {c apsule} active Ergocalciferol 1.25 MG (5 0000 UT) eCW1 ([facility]) Ergocalciferol 69194 UNT Oral Capsule Ergocalciferol 1 .25 MG (04228 UT) Ergocalciferol 1.25 MG (70022 UT) 06/18/2019 12:00:00 AM EDT 1.0 {c apsule} active Ergocalciferol 1.25 MG (5 0000 UT) eCW1 ([facility]) canagliflozin 100 MG Oral Tablet [Invokana] Invokana 100 MG Invokana 100 MG 06/18/2019 12:00:00 AM EDT active Invokana 100 MG eCW1 ([facility]) canagliflozin 100 MG Oral Tablet [Invokana] Invokana 100 MG Invokana 100 MG 06/18/2019 12:00:00 AM EDT active Invokana 100 MG eCW1 ([facility]) Ergocalciferol 36162 UNT Oral Capsule Ergocalciferol 1 .25 MG (00213 UT) Ergocalciferol 1.25 MG (65499 UT) 06/18/2019 12:00:00 AM EDT 1.0 {c apsule} active Ergocalciferol 1.25 MG (5 0000 UT) eCW1 ([facility]) canagliflozin 100 MG Oral Tablet [Invokana] Invokana 100 MG Invokana 100 MG 06/18/2019 12:00:00 AM EDT active Invokana 100 MG eCW1 ([facility]) canagliflozin 100 MG Oral Tablet [Invokana] Invokana 100 MG Invokana 100 MG 06/18/2019 12:00:00 AM EDT active Invokana 100 MG eCW1 ([facility]) Ergocalciferol 05076 UNT Oral Capsule Ergocalciferol 1 .25 MG (88044 UT) Ergocalciferol 1.25 MG (36910 UT) 06/18/2019 12:00:00 AM EDT 1.0 {c apsule} active Ergocalciferol 1.25 MG (5 0000 UT) eCW1 ([facility]) Ergocalciferol 17853 UNT Oral Capsule Ergocalciferol 1 .25 MG (72897 UT) Ergocalciferol 1.25 MG (56910 UT) 06/18/2019 12:00:00 AM EDT 1.0 {c apsule} active Ergocalciferol 1.25 MG (5 0000 UT) eCW1 ([facility]) Ergocalciferol 23947 UNT Oral Capsule Ergocalciferol 1 .25 MG (34953 UT) Ergocalciferol 1.25 MG (97079 UT) 06/18/2019 12:00:00 AM EDT 1.0 {c apsule} active Ergocalciferol 1.25 MG (5 0000 UT) eCW1 ([facility]) Ergocalciferol 01310 UNT Oral Capsule Ergocalciferol 1 .25 MG (32677 UT) Ergocalciferol 1.25 MG (30781 UT) 06/18/2019 12:00:00 AM EDT 1.0 {c apsule} active Ergocalciferol 1.25 MG (5 0000 UT) eCW1 ([facility]) Ergocalciferol 31544 UNT Oral Capsule Ergocalciferol 1 .25 MG (90195 UT) Ergocalciferol 1.25 MG (38481 UT) 06/18/2019 12:00:00 AM EDT 1.0 {c apsule} active Ergocalciferol 1.25 MG (5 0000 UT) eCW1 ([facility]) canagliflozin 100 MG Oral Tablet [Invokana] Invokana 100 MG Invokana 100 MG 06/18/2019 12:00:00 AM EDT active Invokana 100 MG eCW1 ([facility]) canagliflozin 100 MG Oral Tablet [Invokana] Invokana 100 MG Invokana 100 MG 06/18/2019 12:00:00 AM EDT active Invokana 100 MG eCW1 ([facility]) canagliflozin 100 MG Oral Tablet [Invokana] Invokana 100 MG Invokana 100 MG 06/18/2019 12:00:00 AM EDT active Invokana 100 MG eCW1 ([facility]) canagliflozin 100 MG Oral Tablet [Invokana] Invokana 100 MG Invokana 100 MG 06/18/2019 12:00:00 AM EDT active Invokana 100 MG eCW1 ([facility]) canagliflozin 100 MG Oral Tablet [Invokana] Invokana 100 MG Invokana 100 MG 06/18/2019 12:00:00 AM EDT active Invokana 100 MG eCW1 ([facility]) canagliflozin 100 MG Oral Tablet [Invokana] Invokana 100 MG Invokana 100 MG 06/18/2019 12:00:00 AM EDT active Invokana 100 MG eCW1 ([facility]) Ergocalciferol 13348 UNT Oral Capsule Ergocalciferol 1 .25 MG (25197 UT) Ergocalciferol 1.25 MG (65146 UT) 06/18/2019 12:00:00 AM EDT 1.0 {c apsule} active Ergocalciferol 1.25 MG (5 0000 UT) eCW1 ([facility]) canagliflozin 100 MG Oral Tablet [Invokana] Invokana 100 MG Invokana 100 MG 06/18/2019 12:00:00 AM EDT active Invokana 100 MG eCW1 ([facility]) canagliflozin 100 MG Oral Tablet [Invokana] Invokana 100 MG Invokana 100 MG 06/18/2019 12:00:00 AM EDT active Invokana 100 MG eCW1 ([facility]) canagliflozin 100 MG Oral Tablet [Invokana] Invokana 100 MG Invokana 100 MG 06/18/2019 12:00:00 AM EDT active Invokana 100 MG eCW1 ([facility]) Ergocalciferol 22833 UNT Oral Capsule Ergocalciferol 1 .25 MG (55511 UT) Ergocalciferol 1.25 MG (86880 UT) 06/18/2019 12:00:00 AM EDT 1.0 {c apsule} active Ergocalciferol 1.25 MG (5 0000 UT) eCW1 ([facility]) Ergocalciferol 54567 UNT Oral Capsule Ergocalciferol 1 .25 MG (03731 UT) Ergocalciferol 1.25 MG (22465 UT) 06/18/2019 12:00:00 AM EDT 1.0 {c apsule} active Ergocalciferol 1.25 MG (5 0000 UT) eCW1 ([facility]) canagliflozin 100 MG Oral Tablet [Invokana] Invokana 100 MG Invokana 100 MG 06/18/2019 12:00:00 AM EDT active Invokana 100 MG eCW1 ([facility]) canagliflozin 100 MG Oral Tablet [Invokana] Invokana 100 MG Invokana 100 MG 06/18/2019 12:00:00 AM EDT active Invokana 100 MG eCW1 ([facility]) empagliflozin 10 MG Oral Tablet [Jardiance] Jardiance 10 MG Jardiance 10 MG 06/18/2019 12:00:00 AM EDT 1.0 {tablet} active Jardiance 10 MG eCW1 ([facility]) canagliflozin 100 MG Oral Tablet [Invokana] Invokana 100 MG Invokana 100 MG 06/18/2019 12:00:00 AM EDT active Invokana 100 MG eCW1 ([facility]) Ergocalciferol 26357 UNT Oral Capsule Ergocalciferol 1 .25 MG (60909 UT) Ergocalciferol 1.25 MG (58878 UT) 06/18/2019 12:00:00 AM EDT 1.0 {c apsule} active Ergocalciferol 1.25 MG (5 0000 UT) eCW1 ([facility]) gabapentin 400 MG Oral Capsule Gabapentin 400 MG Gabapentin 400 MG 05/18/2019 12:00:00 AM EST 1.0 {capsule} active G abapentin 400 MG eCW1 ([facility]) gabapentin 400 MG Oral Capsule Gabapentin 400 MG Gabapentin 400 MG 05/18/2019 12:00:00 AM EST 1.0 {capsule} active G abapentin 400 MG eCW1 ([facility]) gabapentin 400 MG Oral Capsule Gabapentin 400 MG Gabapentin 400 MG 05/18/2019 12:00:00 AM EST 1.0 {capsule} active G abapentin 400 MG eCW1 ([facility]) gabapentin 400 MG Oral Capsule Gabapentin 400 MG Gabapentin 400 MG 05/18/2019 12:00:00 AM EST active 1 capsul e eCW1 ([facility]) gabapentin 400 MG Oral Capsule Gabapentin 400 MG Gabapentin 400 MG 05/18/2019 12:00:00 AM EST 1.0 {capsule} active G abapentin 400 MG eCW1 ([facility]) gabapentin 400 MG Oral Capsule Gabapentin 400 MG Gabapentin 400 MG 05/18/2019 12:00:00 AM EST active 1 capsul e eCW1 ([facility]) Basaglar Kwikpen Basaglar Kwikpen 04/24/2019 12:00:00 AM EST active MEDENT ([facility]) Basaglar KwikPen 100 UNIT/ML Basaglar KwikPen 100 UNIT/ML 12:00:00 AM EST active Basaglar KwikPen 100 UNIT/ML eCW1 ([facility]) Basaglar KwikPen 100 UNIT/ML Basaglar KwikPen 100 UNIT/ML 12:00:00 AM EST active 60 units eCW1 ([facility]) Basaglar KwikPen 100 UNIT/ML Basaglar KwikPen 100 UNIT/ML 12:00:00 AM EST active Basaglar KwikPen 100 UNIT/ML eCW1 ([facility]) Basaglar KwikPen 100 UNIT/ML Basaglar KwikPen 100 UNIT/ML 12:00:00 AM EST active Basaglar KwikPen 100 UNIT/ML eCW1 ([facility]) Basaglar KwikPen 100 UNIT/ML Basaglar KwikPen 100 UNIT/ML 12:00:00 AM EST active Basaglar KwikPen 100 UNIT/ML eCW1 ([facility]) Basaglar KwikPen 100 UNIT/ML Basaglar KwikPen 100 UNIT/ML 12:00:00 AM EST active Basaglar KwikPen 100 UNIT/ML eCW1 ([facility]) Basaglar KwikPen 100 UNIT/ML Basaglar KwikPen 100 UNIT/ML 12:00:00 AM EST active 60 units eCW1 ([facility]) Basaglar KwikPen 100 UNIT/ML Basaglar KwikPen 100 UNIT/ML 12:00:00 AM EST active Basaglar KwikPen 100 UNIT/ML eCW1 ([facility]) Basaglar KwikPen 100 UNIT/ML Basaglar KwikPen 100 UNIT/ML 12:00:00 AM EST active Basaglar KwikPen 100 UNIT/ML eCW1 ([facility]) Basaglar KwikPen 100 UNIT/ML Basaglar KwikPen 100 UNIT/ML 12:00:00 AM EST active 60 units eCW1 ([facility]) Basaglar KwikPen 100 UNIT/ML Basaglar KwikPen 100 UNIT/ML 12:00:00 AM EST active Basaglar KwikPen 100 UNIT/ML eCW1 ([facility]) Basaglar KwikPen 100 UNIT/ML Basaglar KwikPen 100 UNIT/ML 12:00:00 AM EST active Basaglar KwikPen 100 UNIT/ML eCW1 ([facility]) Basaglar KwikPen 100 UNIT/ML Basaglar KwikPen 100 UNIT/ML 12:00:00 AM EST active Basaglar KwikPen 100 UNIT/ML eCW1 ([facility]) Basaglar KwikPen 100 UNIT/ML Basaglar KwikPen 100 UNIT/ML 12:00:00 AM EST active Basaglar KwikPen 100 UNIT/ML eCW1 ([facility]) Basaglar KwikPen 100 UNIT/ML Basaglar KwikPen 100 UNIT/ML 12:00:00 AM EST active Basaglar KwikPen 100 UNIT/ML eCW1 ([facility]) Basaglar KwikPen 100 UNIT/ML Basaglar KwikPen 100 UNIT/ML 12:00:00 AM EST active Basaglar KwikPen 100 UNIT/ML eCW1 ([facility]) Basaglar KwikPen 100 UNIT/ML Basaglar KwikPen 100 UNIT/ML 12:00:00 AM EST active Basaglar KwikPen 100 UNIT/ML eCW1 ([facility]) Basaglar KwikPen 100 UNIT/ML Basaglar KwikPen 100 UNIT/ML 12:00:00 AM EST active Basaglar KwikPen 100 UNIT/ML eCW1 ([facility]) Basaglar KwikPen 100 UNIT/ML Basaglar KwikPen 100 UNIT/ML 12:00:00 AM EST active Basaglar KwikPen 100 UNIT/ML eCW1 ([facility]) Basaglar KwikPen 100 UNIT/ML Basaglar KwikPen 100 UNIT/ML 12:00:00 AM EST active Basaglar KwikPen 100 UNIT/ML eCW1 ([facility]) Basaglar KwikPen 100 UNIT/ML Basaglar KwikPen 100 UNIT/ML 12:00:00 AM EST active Basaglar KwikPen 100 UNIT/ML eCW1 ([facility]) Basaglar KwikPen 100 UNIT/ML Basaglar KwikPen 100 UNIT/ML 12:00:00 AM EST active Basaglar KwikPen 100 UNIT/ML eCW1 ([facility]) Basaglar KwikPen 100 UNIT/ML Basaglar KwikPen 100 UNIT/ML 12:00:00 AM EST active Basaglar KwikPen 100 UNIT/ML eCW1 ([facility]) Basaglar KwikPen 100 UNIT/ML Basaglar KwikPen 100 UNIT/ML 12:00:00 AM EST active Basaglar KwikPen 100 UNIT/ML eCW1 ([facility]) Trelegy Ellipta Trelegy Ellipta 11/29/2018 12:00:00 AM EDT RESPIRATORY completed [facility] ([facility]) Tresiba Tresiba 11/29/2018 12:00:00 AM EDT complet ed MEDENT ([facility]) Insurance Providers Payer name Policy type / Coverage type Policy ID Covered libertarian ID Covered libertarian's relationship to cantrell Policy Cantrell Plan Information [facility] [id number] SP [id number] [facility] [id number] SP [id number] [facility] O [id number] S [id number] [facility] MEDICAID HMO -O/P [id number] 18 [id number] [facility] MEDICAID HMO -O/P [id number] 18 [id number] ANSI-Medicaid [id number] ANSI-Not a Secondary Insurance [id number] ANSI-Not a Secondary Insurance [id number] ANSI-Not a Secondary Insurance [id number]-37w9-6v44-[id number] [id number] ANSI-Not a Secondary Insurance [id number]-98dkm [id number] ANSI-Medicaid [id number] ANSI-Not a Secondary Insurance [id number]-h69rj [id number] ANSI-Medicaid [id number] ANSI-Not a Secondary Insurance [id number]-[id number]-[id number]-[id number] [facility] Medicaid Health Maintenance Organization (HMO) [id number] Self [id number] [facility] [id number] ANSI-Not a Secondary Insurance [id number]-[id number] ANSI-Medicaid [id number] ANSI-Not a Secondary Insurance [id number]-bqan-[id number] [id number] [id number]-jnps-5vh0-[id number] ANSI-Not a Secondary Insurance [id number] 4q3r09d [id number]-[id number] ANSI-Medicaid [id number] ANSI-Not a Secondary Insurance [id number]-rjh7-5uh32 [id number]-t886-9b90-[id number] ANSI-Not a Secondary Insurance [id number]-[id number] xm2x1w3 [id number]-[id number] ANSI-Not a Secondary Insurance [id number]n [id number] ANSI-Medicaid [id number] ANSI-Not a Secondary Insurance [id number] 524cfd7 9va5z53p-50f8-981u-[id number] ANSI-Not a Secondary Insurance [id number] d45dtm7 [id number] ANSI-Medicaid [id number] ANSI-Medicaid [id number] ANSI-Not a Secondary Insurance [id number]-9mg1-93r9-21e37 6bnw83t yk6g1xi4-2f9m-3ui2-22t8-67i787yhc27s ANSI-Not a Secondary Insurance [id number]-l3ac-97k8-unb8-k956v 34uz72l n2u8bd5g-t1kb-55j0-dci5-c573h50ev36s ANSI-Medicaid [id number] ANSI-Not a Secondary Insurance [id number] sj078ff [id number]-85x2-76p2-7918-4u7g1gk420xu ANSI-Not a Secondary Insurance [id number]-1ss9-bq26-p1175 6efo8uf [id number]-5pr4-qj23-b47361vim0pl ANSI-Not a Secondary Insurance [id number]-6a41-5348-f8ds-vr0i7 eu46n9b w805h09x-0x01-2215-v8dw-sc2m1sz31w4t ANSI-Not a Secondary Insurance [id number]-7089-2luw-b729-73su5 736cabf [id number]-8387-0mlw-[id number] ANSI-Medicaid [id number] ANSI-Medicaid [id number] ANSI-Not a Secondary Insurance [id number]-sp88-3z15-uw5p-qgyp8 57t0t60 wo0872b2-eg86-1i96-mb7t-zszz841k2h57 ANSI-Not a Secondary Insurance [id number]-t3x0-8rb3-n746-3svn5 e029ip3 u83v1322-f3l1-5rj7-s045-9rld5h672id7 ANSI-Not a Secondary Insurance c04pe04q-93wg-23w1-26r0-x6486 qr3268n e28tz93v-68ri-37i4-66c3-m9237zw1592f ANSI-Medicaid [id number] ANSI-Not a Secondary Insurance [id number]-924d-0vf43 545p068 52ao6885-9tm3-592l-683q-6ey80826g348 ANSI-Not a Secondary Insurance uf99cvbj-m421-35m0-w3zf-9r83f hpmzd3q yl81xoxt-v514-70b1-z1jb-4a68adcfyp2k ANSI-Medicaid [id number]-kfai-[id number] ANSI-Not a Secondary Insurance wx991yu7-dr9g-851v-ri92-z9y8l v981zmx zz243qn8-em3u-281z-ga27-q5t7ew336mdx ANSI-Not a Secondary Insurance 110p846c-s99h-05db-6b7g-gf13u lc43tow 606h236d-i62f-37zn-6i7l-pz43bpp86kde ANSI-Not a Secondary Insurance im7nc879-8f29-5z4n-4c65-1u4ik [id number] jb3py530-7y15-3k1p-3w19-1j7gz6t56264 ANSI-Medicaid [id number] ANSI-Medicaid [id number] ANSI-Not a Secondary Insurance fhidq4o0-75y7-1i8f-m735-l1a9y 92bedaa glirw0x1-14t4-8w3y-x761-i7f5d66ezeoy ANSI-Not a Secondary Insurance g355202p-5uc0-5082-a9ug-4o27q w3l663v u496473g-2nb2-1165-v1ri-2z84td4z555r ANSI-Not a Secondary Insurance 44e464wo-4r97-22o6-8c60-n6p6o li707r6 29y606di-9t32-80b4-7e39-t6u0fyv150g4 ANSI-Medicaid [id number] ANSI-Not a Secondary Insurance x22wdjej-9gi1-9ff1-i767-6o83o be30kg4 s22tyftt-1qv5-0ub3-n532-9t38rdr77dh5 ANSI-Not a Secondary Insurance we395901-g9t0-20m1-0336-bf81e 7r2htk7 ft445517-t9b3-70j6-0479-ix02r3l1xsk1 ANSI-Not a Secondary Insurance 06thbv95-0qj0-72d3-39t1-27b93 6p7449a 56bpie16-5qb4-99a8-89l2-13t367f0567w ANSI-Medicaid [id number] 04m0bq01-0435-76g2-[id number] ANSI-Medicaid [id number] [id number]-078i-1b69dwejhwjg ANSI-Not a Secondary Insurance [id number]-36z2-t942-085z4 [id number] 838e3654-13jb-61g9-c113-780d0ti87250 ANSI-Not a Secondary Insurance [id number]-bt1x-43726 h45s113 x6c84522-1013-06qx-ca5r-52805n76o204 ANSI-Not a Secondary Insurance 29o46ttt-997f-829b-yvpc-88j09 191890j 08x08vxx-428y-683v-spjx-27f94102002t ANSI-Medicaid [id number] ANSI-Not a Secondary Insurance [id number]-j957-5j4v-c202-9c039 30e49r6 4i192d01-b275-2d3n-e937-9t73928a37a6 ANSI-Not a Secondary Insurance [id number]-834g-741f-wy0u-07787 8y505d4 3a5168un-646e-607w-od5t-313743o924e5 ANSI-Not a Secondary Insurance 8123s28k-10wu-94u6-89ap-9d512 r7123u1 1290y13w-33va-86s1-70fn-4v456e0078i5 ANSI-Medicaid [id number] ANSI-Not a Secondary Insurance [id number]-w44k-69t1-o68u-9p414 3u51r2e i66794ks-y31c-86f2-g92a-9h4973q31k8v ANSI-Not a Secondary Insurance a6398a91-jr0m-9su2-f994-whg3t 55t85d1 w5109v49-pg5q-1xm1-n810-sqk2c62b14h8 ANSI-Medicaid [id number] ANSI-Medicaid [id number] ANSI-Not a Secondary Insurance 298b4gc3-6t30-084x-p813-lx4qf [id number] 770x8xp3-9h92-355b-l103-il4bt3557382 ANSI-Not a Secondary Insurance 45184r4d-8q7s-93m1-d8m9-1u708 gu37b1e 89871w2v-6w8w-44q4-r7k3-8a572jw74w1m ANSI-Not a Secondary Insurance 00xk435h-0730-29y7-7a62-51747 x7nz00k 46pn556b-5281-22e6-5e29-86202c9mp80e ANSI-Not a Secondary Insurance [id number]-srzr-40p77 88nt350 [id number]-bzrf-[id number] ANSI-Medicaid [id number] ANSI-Not a Secondary Insurance [id number]-ka68-ce554 hdb524n 54p955g3-0468-3570-vm87-mw901ymr107k ANSI-Not a Secondary Insurance 440z9n41-6325-9747-57wq-3ovgv 8q05g10 562l9f62-3679-8168-78ru-0ibbi5z84d36 ANSI-Medicaid [id number] ANSI-Not a Secondary Insurance [id number]-5679-aj08-uvf83 262q7gv [id number]-0157-az54-spj91808m9qh ANSI-Medicaid [id number] ANSI-Not a Secondary Insurance [id number]-40x5-b414x 21aecea 2ff32p46-7474-7vyi-76m7-q346l96cigup ANSI-Not a Secondary Insurance 47z9ne57-6340-708j-69n8-928vt [id number] 89u1wg88-8532-819p-68z4-105vfi8u704l ANSI-Not a Secondary Insurance [id number]-vh9m-0844-k6n4-6kv20 612se28 i726x047-wt7m-2020-q0x7-1cg54591rx20 ANSI-Medicaid [id number] ANSI-Not a Secondary Insurance [id number]-7010-375t-3c63-4z9m9 a2uzs01 8s556crh-7082-148o-0n23-7n6g9b7wmi46 ANSI-Medicaid [id number] ANSI-Not a Secondary Insurance [id number]-l0ua-632r-9556-rn4ay [id number] 35g26032-o6wg-238y-3914-go1aco689824 ANSI-Not a Secondary Insurance [id number]-39v6-14xn-ao0w1 o2mqz64 3nwu1144-342e-54g0-21id-xe7a6u3bfp08 ANSI-Not a Secondary Insurance 2q8rlg6h-r610-1912-js29-a63s0 [id number] 9h9xel8r-l471-8562-hk42-[id number] ANSI-Medicaid [id number]-[id number] ANSI-Not a Secondary Insurance [id number]-dq84-8md7-j0r9-24kc7 86hk4b9 62q7sr47-lh44-9ll7-s4t9-85xz880zj8k2 ANSI-Medicaid [id number] ANSI-Not a Secondary Insurance [id number]-18nbm [id number]-07wfvj517720 ANSI-Not a Secondary Insurance zp901mqt-7247-9ke5-429o-b5umr 357589z oy908fah-4492-3oy1-885h-o2peh205842f ANSI-Medicaid [id number] 00300l1e-r0u1-1qrm-[id number] ANSI-Not a Secondary Insurance [id number]-1643-1w89x dq2o5p6 7vt95579-5u78-18us-5404-2f32ono5h4k7 ANSI-Medicaid [id number] ANSI-Not a Secondary Insurance 0465x8h3-cn84-84aq-sq7t-yj856 [id number] 0624q8j7-mm38-28sn-gt1m-[id number] ANSI-Medicaid [id number]-[id number] ANSI-Not a Secondary Insurance [id number]-s7sg-14082 [id number] [id number]-1s95-7349-v9ui-[id number] [facility] [id number] ANSI-Medicaid [id number] ANSI-Not a Secondary Insurance [id number]-03j05 [id number]-[id number] ANSI-Not a Secondary Insurance [id number]-h079-40n8-ivo8-458z0 rx2y785 [id number]-a033-66e9-ubk0-279l1uc5n156 ANSI-Medicaid [id number]-[id number] ANSI-Medicaid [id number]-[id number] ANSI-Not a Secondary Insurance ktjaqv55-0912-38f0-988p-3v461 [id number] izuraa50-3354-30v1-508x-[id number] ANSI-Not a Secondary Insurance o03awen4-g435-5b75-g82v-5232i 2uck4qz g82ufih3-r268-3o72-v42w-3989m6klz4cm ANSI-Medicaid [id number] ANSI-Medicaid [id number] ANSI-Not a Secondary Insurance 667p8iiu-8po1-0o0h-n9rb-8pd20 pia5l1j 661l7ekh-6tl8-2i7n-n1kx-4np67nyo6f7f ANSI-Medicaid [id number] ANSI-Not a Secondary Insurance [id number]-91p1-31yu-tcq7-6k717 7f02y22 7f09n33b-75n2-10gi-[id number] ANSI-Medicaid [id number]-3886-13xm-fe3u-[id number] ANSI-Not a Secondary Insurance 63uven58-9oy2-05t7-y1s1-447s3 [id number] 77jlld96-9ek2-61c5-[id number] [facility] Medicaid Commercial [id number] [employer] [id number] ANSI-Not a Secondary Insurance [id number]-t738-2cs0-9zzj-4g1y7 [id number]-a659-6gg9-2rat-[id number] ANSI-Medicaid [id number] ANSI-Not a Secondary Insurance [id number]-zgyv-742e-6d4r-81kv1 [id number] 3y1t32g9-bmau-474s-8p5s-[id number] ANSI-Medicaid [id number]-nyr6-2r1c-j3hp-9u4b8c71v7o0 ANSI-Not a Secondary Insurance 385crk74-4874-61y9-1a04-0j083 5x54cs7 233nxd[id number] ANSI-Medicaid [id number]-[id number] ANSI-Not a Secondary Insurance 45w768s2-444m-8856-i72j-9y41y 3u1oc37 37e729z4-776h-6248-q45q-7e81z1m3sk88 ANSI-Medicaid [id number] ANSI-Medicaid [id number] ANSI-Not a Secondary Insurance [id number]-q7j4-vh5v8 2315b2b 64t96i96-9e94-9vn7-j1h5-oj5p84714s8h ANSI-Medicaid [id number]-[id number] ANSI-Not a Secondary Insurance [id number]-4x473 7g51w61 9i936v97-3g25-7p98-66kx-[id number] ANSI-Not a Secondary Insurance 2g93z980-nn3y-1756-cf99-006mu [id number] 9t95s538-wj3k-1520-kr36-668oa4046430 ANSI-Medicaid [id number]-[id number] ANSI-Not a Secondary Insurance 163ts2eb-1491-787h-vl13-66of0 7lm2xb0 296zg1ik-3369-624h-ro80-12fo24fj6lu9 ANSI-Medicaid [id number] [facility] Medicaid Commercial [id number] Self [id number] ANSI-Medicaid [id number] ANSI-Not a Secondary Insurance [id number]-48iv5 a147wh0 [id number]-93ft7t257vu1 ANSI-Medicaid [id number] ANSI-Not a Secondary Insurance 7s41d3kg-26qx-97pd-2378-4nv4z p0odo0f 7d69u9ix-53eo-43zv-3649-0if4ka1uxf2o ANSI-Medicaid [id number]-[id number] ANSI-Not a Secondary Insurance [id number]-zx6j-j644i xpvz678 x9861n74-2cb3-1638-ms3b-h415ijhti006 ANSI-Not a Secondary Insurance 740bnrk2-27it-403z-96l1-0ah55 0q16brd 147ggby1-14sc-788o-63c4-2hp253m41udz ANSI-Medicaid [id number] [facility] Medicaid Commercial [id number] Self [id number] [facility] Medicaid Commercial [id number] Self [id number] ANSI-Not a Secondary Insurance [id number]-556p-j7aa-[id number] [id number]-742t-[id number] ANSI-Medicaid [id number] ANSI-Not a Secondary Insurance [id number]-s84b-769y9 469q1l1 g77vg567-7285-7694-a92j-[id number] ANSI-Medicaid [id number] ANSI-Medicaid [id number] ANSI-Not a Secondary Insurance [id number]-jv15-3n4l-0429-q4f69 t4h06w0 08f71i92-dm61-8b8q-7727-y3g35z4p89d8 ANSI-Medicaid [id number]-795y-57jv-zcf8-[id number] ANSI-Not a Secondary Insurance 68vpas6m-g6a8-0w1a-23cu-2b2m7 z7doj0m 82pmhu0f-z0l9-8a5b-53kf-5i3w8n1ive3o ANSI-Not a Secondary Insurance l3prcu79-vg9z-6bk9-0eei-99yb2 85w3v07 i3xwqm52-ie5j-3qs2-8kpk-49hu619k4z05 ANSI-Medicaid [id number]-[id number] ANSI-Medicaid [id number]-5b6x-[id number] ANSI-Not a Secondary Insurance 974h84ao-fsa3-045x-4pyf-2ulb6 262n82u 804s15gt-jln5-389s-2tvk-5emx3949z70t ANSI-Not a Secondary Insurance [id number]-6069-574i-n5o7-yv538 nqeq9g9 0714806w-7591-844s-g7u7-bk343xeum6c9 ANSI-Medicaid [id number]-[id number] ANSI-Not a Secondary Insurance 2g822o32-3172-1j25-5z53-7j8d3 7c64j23 9h724j96-3300-2v85-6f57-7s9d94y67v45 ANSI-Medicaid [id number]-0xwv-3w4p-[id number] ANSI-Not a Secondary Insurance 425q5e56-048s-68gb-op02-j6425 x14x701 508a5r05-925h-11bk-zs31-[id number] ANSI-Medicaid [id number] ANSI-Not a Secondary Insurance 1kr260w2-1u8i-7egh-8h34-119w0 [id number] 4ij941p6-8e5r-3zcd-9t12-056b824j1182 ANSI-Medicaid [id number] ANSI-Not a Secondary Insurance 7hej2sn2-2551-3860-043r-mga04 1497x8c 9ukg6nz7-0193-0364-502v-pth321358j1p ANSI-Medicaid [id number]-84h4-6n3k-036c-22z818k1the6 ANSI-Not a Secondary Insurance r718h2eb-xc4g-0269-332r-92m6k 935u799 z260m2wp-hs2d-7917-210j-[id number] ANSI-Medicaid [id number] 8o8t096e-i97s-13mm-u4zz-644ir3wvacs5 ANSI-Not a Secondary Insurance [id number]-mg95-28428 32g75cl u223x092-2ek5-44m1-[id number] ANSI-Medicaid [id number] ANSI-Medicaid [id number] ANSI-Not a Secondary Insurance [id number]-dip1-9r42-f770-91t88 [id number] lcp75409-lyp3-8l01-k168-18p62442415u ANSI-Not a Secondary Insurance s1l875h1-l2q9-2809-2g36-7727z 2a2z1n8 h8a066l6-d8l3-2580-4l71-4544x4j3y7o1 ANSI-Medicaid [id number]-[id number] ANSI-Not a Secondary Insurance [id number]-6r2v-4f15-8700-8wzoi [id number] 798979ti-4z8c-1b22-9397-1gdwi86579q1 ANSI-Medicaid [id number]-z8ek-[id number] ANSI-Not a Secondary Insurance ts8186ws-1143-0839-9275-u8kj3 b421a0a so4045th-6357-1820-0549-j6fu5i194j9h ANSI-Medicaid [id number]-[id number] ANSI-Not a Secondary Insurance [id number]-9d8o-1149-0fsj-0733b 5d0v0b4 h2b0748b-5b2h-6339-5ezy-0886u8l1p5x2 ANSI-Medicaid [id number] ANSI-Medicaid [id number]-y54o-[id number] ANSI-Not a Secondary Insurance nf7ke064-j43j-859k-a412-794k2 47af71x yl4sg464-z61n-080k-q717-996m916pk28f ANSI-Not a Secondary Insurance 785fif2l-vdl3-57v9-v49e-7ye74 b94v9rf 116mka5n-wly4-95v9-t47l-7nz47v40a0aq ANSI-Medicaid [id number]-07p7-[id number] ANSI-Not a Secondary Insurance vw18p97h-0366-9408-6njt-475gf 0yk64d3 yr63e61k-3781-0330-9fha-155wk6eb84h9 ANSI-Medicaid [id number] ANSI-Not a Secondary Insurance 1i1gm7m0-t00p-1992-i4rk-21oc1 450w438 9a8pg4t4-y72w-2649-g9oy-[id number] ANSI-Medicaid [id number] ANSI-Medicaid [id number] ANSI-Not a Secondary Insurance [id number] [id number] ANSI-Medicaid [id number] ANSI-Not a Secondary Insurance [id number]-[id number] [id number]-[id number] ANSI-Not a Secondary Insurance [id number]-vptx-[id number] ANSI-Medicaid [id number] ANSI-Medicaid [id number] ANSI-Not a Secondary Insurance [id number] 2t6knty [id number]-[id number] ANSI-Not a Secondary Insurance [id number] ANSI-Medicaid [id number] ANSI-Not a Secondary Insurance [id number] [id number] ANSI-Medicaid [id number] [facility] Medicaid Commercial [id number] Self [id number] ANSI-Medicaid [id number] ANSI-Not a Secondary Insurance [id number] ANSI-Not a Secondary Insurance [id number]-83n5-[id number] ANSI-Medicaid [id number] ANSI-Medicaid [id number] ANSI-Not a Secondary Insurance [id number] ANSI-Medicaid [id number] ANSI-Not a Secondary Insurance [id number] [facility] [id number] SP [id number] MVP Medicaid Commercial [id number] Self [id number] ANSI-Medicaid [id number] ANSI-Not a Secondary Insurance [id number] ANSI-Medicaid [id number] ANSI-Not a Secondary Insurance [id number] ANSI-Not a Secondary Insurance [id number] ANSI-Medicaid [id number] ANSI-Not a Secondary Insurance [id number]-jls6-[id number] [id number]-stg2-[id number] ANSI-Medicaid [id number] ANSI-Medicaid [id number] ANSI-Not a Secondary Insurance [id number] 0cff4r7 [id number]-[id number] ANSI-Not a Secondary Insurance [id number] [id number] [id number] ANSI-Medicaid [id number] ANSI-Medicaid [id number] ANSI-Not a Secondary Insurance [id number] [id number] ANSI-Medicaid [id number] ANSI-Not a Secondary Insurance [id number] ANSI-Not a Secondary Insurance [id number] w1al3m7 [id number]-[id number] ANSI-Medicaid [id number] ANSI-Not a Secondary Insurance [id number]-[id number]-[id number] ANSI-Medicaid [id number] ANSI-Medicaid [id number] ANSI-Not a Secondary Insurance [id number] ANSI-Medicaid [id number] ANSI-Not a Secondary Insurance [id number]-[id number] [id number]-26g3-059t-z7v8-[id number] ANSI-Not a Secondary Insurance [id number] m9scuyx [id number]-8714-[id number] ANSI-Medicaid [id number] ANSI-Not a Secondary Insurance [id number]-08s4g n483mxi [id number]-[id number]-[id number] ANSI-Medicaid [id number] ANSI-Medicaid [id number] ANSI-Not a Secondary Insurance [id number]-[id number] ANSI-Not a Secondary Insurance [id number] [id number]-[id number] ANSI-Medicaid [id number] ANSI-Not a Secondary Insurance [id number]-key2-4vq6-[id number] ANSI-Medicaid [id number]-[id number] ANSI-Not a Secondary Insurance [id number] ANSI-Medicaid [id number] ANSI-Not a Secondary Insurance [id number]-va00-[id number] ANSI-Medicaid [id number] ANSI-Not a Secondary Insurance [id number] 2ilap2h [id number]-[id number] ANSI-Medicaid [id number] ANSI-Medicaid [id number] ANSI-Not a Secondary Insurance [id number]-[id number] [facility] Medicaid Commercial [id number] [employer] [facility] [id number] ANSI-Medicaid [id number] ANSI-Not a Secondary Insurance [id number] [id number] ANSI-Not a Secondary Insurance [id number]-[id number] ANSI-Medicaid [id number] ANSI-Not a Secondary Insurance [id number] ANSI-Medicaid [id number] ANSI-Not a Secondary Insurance [id number] ANSI-Medicaid [id number] ANSI-Not a Secondary Insurance [id number] [id number] ANSI-Medicaid [id number] ANSI-Medicaid [id number] ANSI-Not a Secondary Insurance [id number] [facility] Medicaid Commercial [id number] Self [id number] P Medicaid Commercial [id number] Self [id number] P Medicaid Commercial [id number] Self [id number] [facility] [id number] SP [id number] [facility] Medicaid Commercial [id number] Self [id number] MEDICAID [id number] SP [id number] SELF PAY ONLY [id number] SP [id number] [facility] HEALTH CARE O [id number] S [id number] [facility] [id number] SP [id number] [facility] [id number] SP [id number] [facility] Medicaid Commercial Self [facility] [id number] SP [id number] [facility] Medicaid Health Maintenance Organization (HMO) Self P HEALTH CARE O [id number] S [id number] MEDICAID M [id number] [facility] HEALTH CARE O [id number] S [id number] [facility] [id number] SP [id number] SELF PAY ONLY [id number] SP [id number] 416 O UNAVAILABLE UNAVAILA BLE Problems, Conditions, and Diagnoses Code Display Name Description Problem Type Effective Dates Data Source(s) 25289869 Plantar fascial fibromatosis Plantar fascial fibromato sis Problem 03/27/2020 12:00:00 AM EST MEDENT ([facility] [id number] Onychomycosis Onychomycosis Problem 03/27/2020 12:00:00 AM EST MED[facility] ([facility] 516617821 Polyneuropathy due to type 2 diabetes me llitus Polyneuropathy due to type 2 diabetes mellitus Problem 03/27/2020 12:00:00 AM EST MEDENT ( [facility] M25.511 945607931 Arthralgia of shoulder region, right Prob latisha 02/28/2020 12:00:00 AM EST eCW1 ([facility]) E13.65 601867199 Diabetes, type 1.5, uncontrolled, managed as type 1 Problem 12/25/2019 12:00:00 AM EDT eCW1 ([facility]) E78.2 Mixed hyperlipidemia Combined hyperlipidemia Problem 12/25/2019 12:00:00 AM EDT eCW1 ([facility]) E55.9 Vitamin D deficiency Vitamin D deficiency Problem 09/24/2019 12:00:00 AM EDT eCW1 ([facility]) N40.1 [id number] Benign prostatic hyp erplasia with lower urinary tract symptoms Problem 08/13/2019 12:00:00 AM EDT eCW1 ([facility]) I73.9 871595959 PAD (peripheral artery disease) Problem 08/13/2019 12:00:00 AM EDT eCW1 ([facility]) D16.21 65510300 Enchondroma of right femur Problem 0 12:00:00 AM EDT eCW1 ([facility]) R35.1 595849813 Nocturia Problem 08/13/2019 12:00:00 AM ED T eCW1 ([facility]) N40.1 [id number] Benign prostatic hyp erplasia with lower urinary tract symptoms Problem 08/13/2019 12:00:00 AM EDT eCW1 ([facility]) D16.21 98483468 Enchondroma of right femur Problem 0 12:00:00 AM EDT eCW1 ([facility]) R35.1 606357553 Nocturia Problem 08/13/2019 12:00:00 AM ED T eCW1 ([facility]) I73.9 932780631 PAD (peripheral artery disease) Problem 08/13/2019 12:00:00 AM EDT eCW1 ([facility]) E55.9 03819445 Vitamin D deficiency disease Problem 020 12:00:00 AM EDT eCW1 ([facility]) E55.9 93827414 Vitamin D deficiency disease Problem 020 12:00:00 AM EDT eCW1 ([facility]) G62.9 105158050 Neuropathy Problem 05/18/2019 12:00:00 AM ES T eCW1 ([facility]) G62.9 907443020 Neuropathy Problem 05/18/2019 12:00:00 AM ES T eCW1 ([facility]) M47.816 Lumbosacral spondylosis without myelopat hy Spondylosis without myelopathy or radiculopathy, lumbar region Problem 04/17/2019 12:00: 00 AM EST eCW1 ([facility]) M47.816 Lumbosacral spondylosis without myelopat hy Spondylosis without myelopathy or radiculopathy, lumbar region Problem 04/17/2019 12:00: 00 AM EST eCW1 ([facility]) 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, ) Maximum Breathing Capacity, Maximal Voluntary Ventilation 10/15/2019 12:00:00 AM EDT MED[facility] ([facility] ) Plethysmography Determination Lung Volumes & Per Airway Resi st 10/15/2019 12:00:00 AM EDT MED[facility] ([facility], ) DIFFUSING CAPACITY 10/15/2019 12:00:00 AM EDT MED[facility] ([facility], ) Spirometry 08/23/2019 12:00:00 AM EDT M EDENT ([facility], ) [facility] NRV 07/12/2019 12:00:00 AM EDT MED[facility] ([facility]) TeleMedicine For a follow up visit or re assessment, bdba-xv-rkyc, 15 minutes per unit 06/04/2019 12:00:00 AM EDT eCW1 ([facility]) ESTABILISHED PATIENT [facility] FACILITY CHARGE 020 12:00:00 AM EST eCW1 ([facility]) CHEMODNRVTJ [facility] INNERVATED FACIAL NRV 04/09/2019 12:00:00 AM EST MEDENT ([facility]) Implantable Loop Recorder System, Review And Report 03/21/2019 12:00:00 AM EST [facility] ([facility]) Implantable Loop Recorder System, Review And Report 02/15/2019 12:00:00 AM EST MED[facility] ([facility]) Interrogation device evaluation(s), (rem ote) up to 30 days; implantable cardiovascular monitor system or implantable loop recorder system, remote data acquisition(s), receipt of transmissions and account technician 02/15/2019 12:00:00 AM EST MED[facility] ([facility]) Results ID Date Data Source PLZ SHOULDER COMPLETE 02/28/2020 12:00:00 AM EST eCW1 ([facility]) Name Value Range Interpretation Code Description Data Araseli rce(s) Supporting Document(s) PLZ SHOULDER COMPLETE eCW1 ([facility]) ID Date Data Source [id number] 02/14/2020 02:47:00 PM EST MEDENT ([facility], ) Name Value Range Interpretation Code Description Data Araseli rce(s) Supporting Document(s) FVC-Pre 3.63 L MEDENT ([facility], ) PDFReport Laboratory test result MEDENT ([facility], ) FVC-Pred 4.63 L MED[facility] ([facility], ) FVC-LLN 3.63 L MED[facility] ([facility], ) FVC-%Pred-Pre 78 L MEDENT ([facility], ) Fev1-Pred 3.76 L MED[facility] ([facility], ) Fev1-%Pred-Pre 62 L MEDENT ([facility], ) Fev1-LLN 2.88 L MEDENT ([facility]) Fev1-Pre 2.36 L MED[facility] ([facility]) Fev6-Pred 4.53 L MED[facility] ([facility]) Fev6-Pre 3.63 L [facility] ([facility]) Fev6-LLN 3.55 L MED[facility] ([facility]) Fev6-%Pred-Pre 80 L MEDENT ([facility], ) Osx2pfp-Vbjx 81 % MEDENT ([facility]) Iiq0maw-SSA 71 % MED[facility] ([facility]) Krs9qty-Tcb 65 % MED[facility] ([facility]) Seu1pln-%Pred-Pre 79 % MEDENT ([facility]) Ekv3nru-Ixqm 98 % MED[facility] ([facility]) Ucs8uht-Piv 100 % MED[facility] ([facility]) Ovz4kpv-%Pred-Pre 102 % MEDENT ([facility]) FEFMax-Pred 9.61 L/E/sec MEDENT ([facility]) FEFMax-%Pred-Pre 41 L/E/sec MEDENT ([facility]) FEFMax-Pre 3.94 L/E/sec MED[facility] ([facility]) Nfb2801-Ovm 1.48 L/E/sec MED[facility] ([facility]) FEFMax-LLN 6.80 L/E/sec MED[facility] ([facility]) Cwa1012-Pizr 3.82 L/E/sec MEDENT ([facility]) Cpv0785-PFF 1.93 L/E/sec MEDENT ([facility]) Tys8894-%Pred-Pre 38 L/E/sec MEDENT ([facility]) ExpTime-Pre 5.49 sec MEDENT ([facility]) Bvx2fef1-%Pred-Pre 78 % MEDENT ([facility], ) Ldc1zdx2-Afv 65 % MEDENT ([facility]) Gxa3zeq3-Cgmt 83 % MEDENT ([facility], ) Hqs8adj4-DML 73 % MED[facility] ([facility]) ID Date Data Source UA URINALYSIS 12/27/2019 09:36:28 AM EDT eCW1 ([facility]) Name Value Range Interpretation Code Description Data Araseli rce(s) Supporting Document(s) Laboratory studies (set) UA URINALYS IS eCW1 ([facility]) ID Date Data Source [id number] 12/27/2019 09:36:26 AM EDT eCW1 ([facility]) Name Value Range Interpretation Code Description Data Araseli rce(s) Supporting Document(s) Microalbumin/Creatinine [Mass Ratio] in Urine 270.0 CREATININE, URINE eCW1 ([facility]) Microalbumin/Creatinine [Ratio] in Urine 10.1 MOISES/CREAT RATIO eCW1 ([facility]) Albumin/Creatinine [Mass Ratio] in Urine 27.3 MALB URINE SIEMENS eCW1 ([facility]) ID Date Data Source LIPID PANEL (CARDIAC RISK) 12/27/2019 09:36:23 AM EDT eCW1 ( [facility]) Name Value Range Interpretation Code Description Data Araseli rce(s) Supporting Document(s) Triglyceride [Mass/volume] in Serum or Plasma by calculation 113 eCW1 ([facility]) Cholesterol [Moles/volume] in Serum or Plasma 145 eCW1 ([facility]) Cholesterol in LDL [Mass/volume] in Serum or Plasma by calculation 76 eCW1 ([facility]) 99 eCW1 ([facility]) 3.152 eCW1 ([facility]) Cholesterol in HDL [Moles/volume] in Serum or Plasma 46 eCW1 ([facility]) ID Date Data Source FREE T4 & TSH PANEL 12/27/2019 09:36:21 AM EDT eCW1 ([facility]) Name Value Range Interpretation Code Description Data Araseli rce(s) Supporting Document(s) 1.15 FREE T4 eCW1 ([facility]) 0.826 THYROID STIMULATING HORMONE eC W1 ([facility]) ID Date Data Source Comprehensive Metabolic Profile (CMP) 12/27/2019 09:36:19 AM EDT eCW1 ([facility]) Name Value Range Interpretation Code Description Data Araseli rce(s) Supporting Document(s) > 60.0 eCW1 ([facility]) 78 eCW1 ([facility]) 0.91 eCW1 ([facility]) 9 eCW1 ([facility]) 3.5 eCW1 ([facility]) 108 eCW1 ([facility]) 28 eCW1 ([facility]) 141 eCW1 ([facility]) 72 eCW1 ([facility]) 34 eCW1 ([facility]) 17 eCW1 ([facility]) 9.2 eCW1 ([facility]) 1.1 eCW1 ([facility]) 7.9 eCW1 ([facility]) 4.2 eCW1 ([facility]) 0.4 eCW1 ([facility]) ID Date Data Source PTH INTACT 10/03/2019 06:15:04 AM EDT eCW1 ([facility]) Name Value Range Interpretation Code Description Data Araseli rce(s) Supporting Document(s) 32.3 PTH INTACT eCW1 ([facility]) ID Date Data Source VITAMIN D 25-HYDROXY 10/03/2019 06:12:55 AM EDT eCW1 ([facility]) Name Value Range Interpretation Code Description Data Araseli rce(s) Supporting Document(s) 50.6 TOTAL 25(OH) VITAMIN D eCW1 ([facility]) ID Date Data Source [id number] 09/03/2019 01:15:00 PM EDT [facility] [address] [place] [address] PHONE: [phone] FAX: [phone] Name .................. : ARIANA VANCE Acct Number.................. : [id number] ROOM. ................. : MR Number ................... : [id number] Stay type ............. : O/P Discharge Date......... ... : 09/03/19 Admit Date ......... : 09/03/19 Admit Phys .................... : [place] [employer] Date of ....... : 1975 Family Phys ................... : [place] [employer] Phone .................. : [phone] Age ................................ : 44 Film# .................. .:[id number] Sex ................................. : M Unsigned transcriptions are preliminary reports and do not represent a medical or legal document MRI LOWER EXT W/O CONTRAST [place] [id number] COMPLETE:09/03/19 08:44 [facility] [id number] (REASON FOR PROCESS: R FEMUR ENCHONDROMA MRI [...] other significant findings. Page 1 of 2 [facility] [address] [place] [address] PHONE: [phone] FAX: [phone] Name .................. : ARIANA VANCE Acct Number.................. : [id number] ROOM. ................. : MR Number ................... : [id number] Stay type ............. : O/P Discharge Date......... ... : 09/03/19 Admit Date ......... : 09/03/19 Admit Phys .................... : MARYCRUZ Date of ....... : 1975 Family Phys ................... : MARYCRUZ Phone .................. : [phone] Age ................................ : 44 Film# .................. .:[id number] Sex ................................. : M Un signed transcriptions are preliminary reports and do not represent a medical or legal document MRI LOWER EXT W/O CONTRAST [place] [id number] COMPLETE:09/03/19 08:44 [facility] [id number] (REASON FOR PROCESS: R FEMUR ENCHONDROMA Electronically Reviewed and Signed By ALEJANDRA AMAYA MD , 09/03/19 13:15, [facility] Transcribe Initials: SSR, Transcribe Date: 09/03/19 11:21, Dictation Date: Copy for: MARYCRUZ AMAYA via fax Copy for: 710 MED REC Page 2 of 2 Name Value Range Interpretation Code Description Data Araseli rce(s) Supporting Document(s) ID Date Data Source [id number] 08/23/2019 08:55:00 AM EDT [facility] ([facility]) Name Value Range Interpretation Code Description Data Araseli rce(s) Supporting Document(s) FVC-Pred 4.63 L [facility] ([facility]) PDFReport Laboratory test result [facility] ([facility]) FVC-Pre 3.54 L [facility] ([facility]) FVC-LLN 3.63 L [facility] ([facility]) FVC-%Pred-Pre 76 L [facility] ([facility]) Fev1-Pre 2.36 L [facility] ([facility]) Fev1-Pred 3.76 L [facility] ([facility] ) Fev1-%Pred-Pre 62 L [facility] ([facility], ) Fev6-Pred 4.53 L [facility] ([facility]) Fev1-LLN 2.88 L [facility] ([facility]) Fev6-Pre 3.54 L [facility] ([facility]) Fev6-%Pred-Pre 78 L [facility] ([facility]) Fev6-LLN 3.55 L [facility] ([facility]) Bym0klv-Dmak 81 % [facility] ([facility]) Irg0ouf-%Pred-Pre 81 % [facility] ([facility]) Orf4rbm-Bpq 67 % [facility] ([facility]) Jav2zrk-HCX 71 % [facility] ([facility]) Qfl3ilo-Cdp 100 % [facility] ([facility]) Hbb6rtd-Ozis 98 % [facility] ([facility]) Hkj2duc-%Pred-Pre 102 % [facility] ([facility]) FEFMax-Pred 9.61 L/E/sec [facility] ([facility]) FEFMax-%Pred-Pre 42 L/E/sec [facility] ([facility]) FEFMax-Pre 4.13 L/E/sec [facility] ([facility]) Gzs5360-Jflf 3.82 L/E/sec [facility] ([facility]) FEFMax-LLN 6.80 L/E/sec [facility] ([facility]) Dfb3205-Hkx 1.48 L/E/sec [facility] ([facility]) ExpTime-Pre 5.99 sec [facility] ([facility]) Roc1248-XPS 1.93 L/E/sec [facility] ([facility]) Vzz0046-%Pred-Pre 38 L/E/sec [facility] ([facility]) Tka2jfm6-Sgf 67 % [facility] ([facility]) Lmp3lwz8-Xmfx 83 % [facility] ([facility]) Wnw2xpm4-%Pred-Pre 79 % [facility] ([facility]) Yco3way7-AEH 73 % [facility] ([facility]) ID Date Data Source [id number] 07/31/2019 02:52:00 PM EDT [facility]) Name Value Range Interpretation Code Description Data Araseli rce(s) Supporting Document(s) Carbon dioxide, total [Moles/volume] in Serum or Plasma 25 [facility] ([facility]) Calcium [Mass/volume] in Serum or Plasma 9.5 [facility] ([facility]) Sodium 138 [facility] Potassium [Moles/volume] in Serum or Plasma 4.2 [facility] [facility]) Chloride [Moles/volume] in Serum or Plasma 105 MEDENT ([facility]) Glucose 198 70-100 MEDENT ([facility]) Glomerular filtration rate/1.73 sq M.pre dicted [Volume Rate/Area] in Serum or Plasma by Creatinine-based formula (MDRD) Laboratory test result MEDENT ([facility]) Blood Urea Nitrogen 11 7-18 MEDENT ([facility]) Creatinine 1.18 0.70-1.30 MEDENT ([facility]) ID Date Data Source [id number] 07/31/2019 02:52:00 PM EDT MEDENT ([facility]) Name Value Range Interpretation Code Description Data Araseli rce(s) Supporting Document(s) White Blood Count 8.6 4.0-10.0 MED[facility] ([facility]) Red Blood Count 5.06 4.30-6.10 MEDENT ([facility]) Hematocrit 45.1 42.0-52.0 MEDENT ([facility]) Platelets 220 150-450 MEDENT ([facility]) Hemoglobin 15.4 13.5-17.5 MEDENT ([facility]) Procedure Social History Code Duration Value Status Description Data Source(s ) Smoking 02/28/2020 12:00:00 AM EST Current Smoker completed Curre nt Smoker eCW1 ([facility]) Smoking 02/28/2020 12:00:00 AM EST Current Smoker completed Curre nt Smoker eCW1 ([facility]) Smoking 02/28/2020 12:00:00 AM EST Current Smoker completed Curre nt Smoker eCW1 ([facility]) Smoking 02/28/2020 12:00:00 AM EST Current Smoker completed Curre nt Smoker eCW1 ([facility]) Smoking 02/28/2020 12:00:00 AM EST Current Smoker completed Curre nt Smoker eCW1 ([facility]) Smoking 02/28/2020 12:00:00 AM EST Current Smoker completed Curre nt Smoker eCW1 ([facility]) Smoking 02/28/2020 12:00:00 AM EST Current Smoker completed Curre nt Smoker eCW1 ([facility]) Smoking 02/28/2020 12:00:00 AM EST Current Smoker completed Curre nt Smoker eCW1 ([facility]) Smoking 12/25/2019 12:00:00 AM EDT Current Smoker completed Curre nt Smoker eCW1 ([facility]) Smoking 12/25/2019 12:00:00 AM EDT Current Smoker completed Curre nt Smoker eCW1 ([facility]) Smoking 12/25/2019 12:00:00 AM EDT Current Smoker completed Curre nt Smoker eCW1 ([facility]) Smoking 12/25/2019 12:00:00 AM EDT Current Smoker completed Curre nt Smoker eCW1 ([facility]) Smoking 12/25/2019 12:00:00 AM EDT Current Smoker completed Curre nt Smoker eCW1 ([facility]) Smoking 12/25/2019 12:00:00 AM EDT Current Smoker completed Curre nt Smoker eCW1 ([facility]) Smoking 12/25/2019 12:00:00 AM EDT Current Smoker completed Curre nt Smoker eCW1 ([facility]) Smoking 12/25/2019 12:00:00 AM EDT Current Smoker completed Curre nt Smoker eCW1 ([facility]) Smoking 12/25/2019 12:00:00 AM EDT Current Smoker completed Curre nt Smoker eCW1 ([facility]) Smoking 12/25/2019 12:00:00 AM EDT Current Smoker completed Curre nt Smoker eCW1 ([facility]) Smoking 12/25/2019 12:00:00 AM EDT Current Smoker completed Curre nt Smoker eCW1 ([facility]) Smoking 12/25/2019 12:00:00 AM EDT Current Smoker completed Curre nt Smoker eCW1 ([facility]) Smoking 12/25/2019 12:00:00 AM EDT Current Smoker completed Curre nt Smoker eCW1 ([facility]) Smoking 12/25/2019 12:00:00 AM EDT Current Smoker completed Curre nt Smoker eCW1 ([facility]) Smoking 12/25/2019 12:00:00 AM EDT Current Smoker completed Curre nt Smoker eCW1 ([facility]) Smoking 12/25/2019 12:00:00 AM EDT Current Smoker completed Curre nt Smoker eCW1 ([facility]) Smoking 12/25/2019 12:00:00 AM EDT Current Smoker completed Curre nt Smoker eCW1 ([facility]) Smoking 12/25/2019 12:00:00 AM EDT Current Smoker completed Curre nt Smoker eCW1 ([facility]) Smoking 12/25/2019 12:00:00 AM EDT Current Smoker completed Curre nt Smoker eCW1 ([facility]) Smoking 12/25/2019 12:00:00 AM EDT Current Smoker completed Curre nt Smoker eCW1 ([facility]) Smoking 12/25/2019 12:00:00 AM EDT Current Smoker completed Curre nt Smoker eCW1 ([facility]) Smoking 12/25/2019 12:00:00 AM EDT Current Smoker completed Curre nt Smoker eCW1 ([facility]) Smoking 09/24/2019 12:00:00 AM EDT Current Smoker completed Curre nt Smoker eCW1 ([facility]) Smoking 09/24/2019 12:00:00 AM EDT Current Smoker completed Curre nt Smoker eCW1 ([facility]) Smoking 09/24/2019 12:00:00 AM EDT Current Smoker completed Curre nt Smoker eCW1 ([facility]) Smoking 09/24/2019 12:00:00 AM EDT Current Smoker completed Curre nt Smoker eCW1 ([facility]) Smoking 09/24/2019 12:00:00 AM EDT Current Smoker completed Curre nt Smoker eCW1 ([facility]) Smoking 08/13/2019 12:00:00 AM EDT Current Smoker completed Curre nt Smoker eCW1 ([facility]) Smoking 08/13/2019 12:00:00 AM EDT Current Smoker completed Curre nt Smoker eCW1 ([facility]) Smoking 08/13/2019 12:00:00 AM EDT Current Smoker completed Curre nt Smoker eCW1 ([facility]) Smoking 08/13/2019 12:00:00 AM EDT Current Smoker completed Curre nt Smoker eCW1 ([facility]) Smoking 04/25/2019 12:00:00 AM EST Patient is a former smoker completed Patient is a former smoker MED[facility] ([facility]) Vital Signs ID Date Data Source UNK [...] height 72 [in_i] 72 [in_i] MEDENT ([facility] 6'0" Diastolic blood pressure 80 mm[Hg] 80 mm[Hg] eCW1 ([facility]) Systolic blood pressure 138 mm[Hg] 138 mm[Hg] e CW1 ([facility]) Body temperature 96.5 [degF] 96.5 [degF] eCW1 ( [facility]) Respiratory rate 18 /min 18 /min eCW1 ([facility]) Heart rate 102 /min 102 /min eCW1 ([facility]) Body mass index (BMI) [Ratio] 24.75 kg/m2 24.75 kg/m2 eCW1 ([facility]) Body height 70.5 [in_i] 70.5 [in_i] eCW1 ([facility]) Body weight 175 [lb_av] 175 [lb_av] eCW1 ([facility]) Body surface area Derived from formula 2.01 m2 2.01 m2 [facility] Body weight 79.550 kg 79.550 kg [facility] ([facility]) [place] body weight 178 [lb_av] 178 [lb_av] MEDEN T ([facility]) Body mass index (BMI) [Ratio] 23.8 kg/m2 23.8 k g/m2 [facility] ([facility]) Body weight 175.38 [lb_av] 175.38 [lb_av] MEDEN T ([facility]) Body height 72 [in_i] 72 [in_i] [facility] ([facility]) 6'0" Body temperature 97.8 [degF] 97.8 [degF] [facility] ([facility]) Oxygen saturation in Arterial blood by Pulse oximetry 98 % 98 % [facility] ([facility]) Heart rate 76 /min 76 /min [facility] ([facility]) Diastolic blood pressure 88 mm[Hg] 88 mm[Hg] [facility], [facility] Systolic blood pressure 144 mm[Hg] 144 mm[Hg] [facility] Diastolic blood pressure 82 mm[Hg] 82 mm[Hg] eCW1 ([facility]) Systolic blood pressure 130 mm[Hg] 130 mm[Hg] e CW1 ([facility]) Body temperature 96.6 [degF] 96.6 [degF] eCW1 ( [facility]) Respiratory rate 18 /min 18 /min eCW1 ([facility]) Heart rate 97 /min 97 /min eCW1 ([facility]) Body mass index (BMI) [Ratio] 24.61 kg/m2 24.61 kg/m2 eCW1 ([facility]) Body height 70.5 [in_i] 70.5 [in_i] eCW1 ([facility]) Body weight 174.0 [lb_av] 174.0 [lb_av] eCW1 ([facility]) Body surface area Derived from formula 2.01 m2 2.01 m2 [facility] Body weight 79.380 kg 79.380 kg [facility] ([facility]) [place] body weight 178 [lb_av] 178 [lb_av] MEDEN T ([facility]) Body mass index (BMI) [Ratio] 23.7 kg/m2 23.7 k g/m2 [facility] ([facility]) Body weight 175.00 [lb_av] 175.00 [lb_av] MEDEN T ([facility]) Body height 72 [in_i] 72 [in_i] [facility] ([facility]) 6'0" Diastolic blood pressure 124 mm[Hg] 124 mm[Hg] [facility] ([facility]) Systolic blood pressure 191 mm[Hg] 191 mm[Hg] M EDENT ([facility]) Body weight 80.741 kg 80.741 kg [facility] ([facility]) Body mass index (BMI) [Ratio] 24.1 kg/m2 24.1 k g/m2 [facility] ([facility]) Body weight 178.00 [lb_av] 178.00 [lb_av] MEDEN T ([facility]) Body height 72 [in_i] 72 [in_i] [facility] 6'0" Body temperature 98.1 [degF] 98.1 [degF] [facility] ([facility]) Oxygen saturation in Arterial blood by Pulse oximetry 98 % 98 % [facility] ([facility]) Heart rate 88 /min 88 /min [facility] Diastolic blood pressure 90 mm[Hg] 90 mm[Hg] [facility] Systolic blood pressure 144 mm[Hg] 144 mm[Hg] M EDENT ([facility]) Diastolic blood pressure 76 mm[Hg] 76 mm[Hg] eCW1 ([facility]) Systolic blood pressure 118 mm[Hg] 118 mm[Hg] e CW1 ([facility]) Body temperature 97.4 [degF] 97.4 [degF] W1 ( [facility]) Respiratory rate 17 /min 17 /min eCW1 ([facility]) Heart rate 92 /min 92 /min eCW1 ([facility]) Body mass index (BMI) [Ratio] 24.92 kg/m2 24.92 kg/m2 W1 ([facility]) Body height 70.5 [in_i] 70.5 [in_i] W1 ([facility]) Body weight 176.2 [lb_av] 176.2 [lb_av] eCW1 ([facility]) Body weight 83.009 kg 83.009 kg [facility] Body mass index (BMI) [Ratio] 24.8 kg/m2 24.8 k g/m2 [facility] Body weight 183.00 [lb_av] 183.00 [lb_av] MEDEN T ([facility]) Body height 72 [in_i] 72 [in_i] [facility] ([facility]) 6'0" Body temperature 97.2 [degF] 97.2 [degF] MEDENT ([facility], ) Oxygen saturation in Arterial blood by Pulse oximetry 96 % 96 % [facility] ([facility], ) Heart rate 86 /min 86 /min [facility], ) Diastolic blood pressure 98 mm[Hg] 98 mm[Hg] [facility], ) Systolic blood pressure 126 mm[Hg] 126 mm[Hg] [facility] Diastolic blood pressure 92 mm[Hg] 92 mm[Hg] eCW1 ([facility]) Systolic blood pressure 140 mm[Hg] 140 mm[Hg] e CW1 ([facility]) Body temperature 97.5 [degF] 97.5 [degF] eCW1 ( [facility]) Respiratory rate 18 /min 18 /min eCW1 ([facility]) Heart rate 122 /min 122 /min eCW1 ([facility]) Body mass index (BMI) [Ratio] 26.31 kg/m2 26.31 kg/m2 W1 ([facility]) Body height 70.5 [in_i] 70.5 [in_i] eCW1 ([facility]) Body weight 186 [lb_av] 186 [lb_av] eCW1 ([facility]) Body mass index (BMI) [Ratio] 26.70 kg/m2 26.70 kg/m2 W1 ([facility]) Body height 70.5 [in_us] 70.5 [in_us] eCW1 ([facility]) Body weight Measured [lb_av] eCW1 ([facility]) Diastolic blood pressure 106 mm[Hg] 106 mm[Hg] eCW1 ([facility]) Systolic blood pressure 160 mm[Hg] 160 mm[Hg] e CW1 ([facility]) Body temperature 98.2 [degF] 98.2 [degF] eCW1 ( [facility]) Respiratory rate 17 /min 17 /min eCW1 ([facility]) Heart rate 100 /min 100 /min eCW1 ([facility]) Body mass index (BMI) [Ratio] 26.70 kg/m2 26.70 kg/m2 eCW1 ([facility]) Body height 70.5 [in_us] 70.5 [in_us] eCW1 ([facility]) Body weight Measured 188.8 [lb_av] 188.8 [lb_av ] eCW1 ([facility]) Diastolic blood pressure--sitting 84 mm[Hg] 84 mm[Hg] [facility] ([facility]) Systolic blood pressure--sitting 118 mm[Hg] 118 mm[Hg] [facility] ([facility]) Body mass index (BMI) [Ratio] 25.5 kg/m2 25.5 k g/m2 [facility] ([facility]) Body height 71 [in_i] 71 [in_i] MEDENT ([facility]) 5'11" Body weight 183.00 [lb_av] 183.00 [lb_av] MEDEN T ([facility]) Patient Treatment Plan of Care Planned Activity Planned Date Details Description Data Source (s) tizanidine 4 MG Oral Tablet 02/28/2020 12:00:00 AM EST eCW1 ([facility]) gabapentin 600 MG Oral Tablet 02/28/2020 12:00:00 AM EST eCW1 ([facility]) tizanidine 4 MG Oral Tablet 02/28/2020 12:00:00 AM EST eCW1 ([facility]) gabapentin 600 MG Oral Tablet 02/28/2020 12:00:00 AM EST eCW1 ([facility]) tizanidine 4 MG Oral Tablet 02/28/2020 12:00:00 AM EST eCW1 ([facility]) tizanidine 4 MG Oral Tablet 02/28/2020 12:00:00 AM EST eCW1 ([facility]) gabapentin 600 MG Oral Tablet 02/28/2020 12:00:00 AM EST eCW1 ([facility]) tizanidine 4 MG Oral Tablet 02/28/2020 12:00:00 AM EST eCW1 ([facility]) gabapentin 600 MG Oral Tablet 02/28/2020 12:00:00 AM EST eCW1 ([facility]) tizanidine 4 MG Oral Tablet 02/28/2020 12:00:00 AM EST eCW1 ([facility]) gabapentin 600 MG Oral Tablet 02/28/2020 12:00:00 AM EST eCW1 ([facility]) gabapentin 600 MG Oral Tablet 02/28/2020 12:00:00 AM EST eCW1 ([facility]) tizanidine 4 MG Oral Tablet 02/28/2020 12:00:00 AM EST eCW1 ([facility]) gabapentin 600 MG Oral Tablet 02/28/2020 12:00:00 AM EST eCW1 ([facility]) tizanidine 4 MG Oral Tablet 02/28/2020 12:00:00 AM EST eCW1 ([facility]) gabapentin 600 MG Oral Tablet 02/28/2020 12:00:00 AM EST eCW1 ([facility]) 200 ACTUAT Levalbuterol 0.045 MG/ACTUAT Metered Dose I nhaler 01/08/2020 12:00:00 AM EDT eCW1 ([facility]) 200 ACTUAT Levalbuterol 0.045 MG/ACTUAT Metered Dose I nhaler 01/08/2020 12:00:00 AM EDT eCW1 ([facility]) 200 ACTUAT Levalbuterol 0.045 MG/ACTUAT Metered Dose I nhaler 01/08/2020 12:00:00 AM EDT eCW1 ([facility]) 200 ACTUAT Levalbuterol 0.045 MG/ACTUAT Metered Dose I nhaler 01/08/2020 12:00:00 AM EDT eCW1 ([facility]) 200 ACTUAT Levalbuterol 0.045 MG/ACTUAT Metered Dose I nhaler 01/08/2020 12:00:00 AM EDT eCW1 ([facility]) 200 ACTUAT Levalbuterol 0.045 MG/ACTUAT Metered Dose I nhaler 01/08/2020 12:00:00 AM EDT eCW1 ([facility]) 200 ACTUAT Levalbuterol 0.045 MG/ACTUAT Metered Dose I nhaler 01/08/2020 12:00:00 AM EDT eCW1 ([facility]) 200 ACTUAT Levalbuterol 0.045 MG/ACTUAT Metered Dose I nhaler 01/08/2020 12:00:00 AM EDT eCW1 ([facility]) Isopropyl Alcohol 0.7 ML/ML Medicated Pad 09/19/2019 12:00:00 AM ED T eCW1 ([facility]) Isopropyl Alcohol 0.7 ML/ML Medicated Pad 09/19/2019 12:00:00 AM ED T eCW1 ([facility]) Isopropyl Alcohol 0.7 ML/ML Medicated Pad 09/19/2019 12:00:00 AM ED T eCW1 ([facility]) Isopropyl Alcohol 0.7 ML/ML Medicated Pad 09/19/2019 12:00:00 AM ED T eCW1 ([facility]) Isopropyl Alcohol 0.7 ML/ML Medicated Pad 09/19/2019 12:00:00 AM ED T eCW1 ([facility]) Isopropyl Alcohol 0.7 ML/ML Medicated Pad 09/19/2019 12:00:00 AM ED T eCW1 ([facility]) Isopropyl Alcohol 0.7 ML/ML Medicated Pad 09/19/2019 12:00:00 AM ED T eCW1 ([facility]) Isopropyl Alcohol 0.7 ML/ML Medicated Pad 09/19/2019 12:00:00 AM ED T eCW1 ([facility]) Isopropyl Alcohol 0.7 ML/ML Medicated Pad 09/19/2019 12:00:00 AM ED T eCW1 ([facility]) Isopropyl Alcohol 0.7 ML/ML Medicated Pad 09/19/2019 12:00:00 AM ED T eCW1 ([facility]) Isopropyl Alcohol 0.7 ML/ML Medicated Pad 09/19/2019 12:00:00 AM ED T eCW1 ([facility]) Isopropyl Alcohol 0.7 ML/ML Medicated Pad 09/19/2019 12:00:00 AM ED T eCW1 ([facility]) Isopropyl Alcohol 0.7 ML/ML Medicated Pad 09/19/2019 12:00:00 AM ED T eCW1 ([facility]) Isopropyl Alcohol 0.7 ML/ML Medicated Pad 09/19/2019 12:00:00 AM ED T eCW1 ([facility]) BD Pen Needle Jessica U/F 32G X 4 MM 09/17/2019 12:00:00 AM EDT eCW1 ([facility]) BD Pen Needle Jessica U/F 32G X 4 MM 09/17/2019 12:00:00 AM EDT eCW1 ([facility]) BD Pen Needle Jessica U/F 32G X 4 MM 09/17/2019 12:00:00 AM EDT eCW1 ([facility]) BD Pen Needle Jessica U/F 32G X 4 MM 09/17/2019 12:00:00 AM EDT eCW1 ([facility]) BD Pen Needle Jessica U/F 32G X 4 MM 09/17/2019 12:00:00 AM EDT eCW1 ([facility]) BD Pen Needle Jessica U/F 32G X 4 MM 09/17/2019 12:00:00 AM EDT eCW1 ([facility]) BD Pen Needle Jessica U/F 32G X 4 MM 09/17/2019 12:00:00 AM EDT eCW1 ([facility]) BD Pen Needle Jessica U/F 32G X 4 MM 09/17/2019 12:00:00 AM EDT eCW1 ([facility]) BD Pen Needle Jessica U/F 32G X 4 MM 09/17/2019 12:00:00 AM EDT eCW1 ([facility]) BD Pen Needle Jessica U/F 32G X 4 MM 09/17/2019 12:00:00 AM EDT eCW1 ([facility]) BD Pen Needle Jessica U/F 32G X 4 MM 09/17/2019 12:00:00 AM EDT eCW1 ([facility]) BD Pen Needle Jessica U/F 32G X 4 MM 09/17/2019 12:00:00 AM EDT eCW1 ([facility]) BD Pen Needle Jessica U/F 32G X 4 MM 09/17/2019 12:00:00 AM EDT eCW1 ([facility]) BD Pen Needle Jessica U/F 32G X 4 MM 09/17/2019 12:00:00 AM EDT eCW1 ([facility]) pantoprazole 40 MG Delayed Release Oral Tablet [Proton ix] 08/13/2019 12:00:00 AM EDT eCW1 ([facility]) Tamsulosin hydrochloride 0.4 MG Oral Capsule [Flomax] 08/13/2019 12:00:00 AM EDT eCW1 ([facility]) sildenafil 25 MG Oral Tablet [Viagra] 08/13/2019 12:00:00 AM EDT eCW1 ([facility]) sildenafil 25 MG Oral Tablet [Viagra] 08/13/2019 12:00:00 AM EDT eCW1 ([facility]) pantoprazole 40 MG Delayed Release Oral Tablet [Proton ix] 08/13/2019 12:00:00 AM EDT eCW1 ([facility]) Tamsulosin hydrochloride 0.4 MG Oral Capsule [Flomax] 08/13/2019 12:00:00 AM EDT eCW1 ([facility]) sildenafil 25 MG Oral Tablet [Viagra] 08/13/2019 12:00:00 AM EDT eCW1 ([facility]) pantoprazole 40 MG Delayed Release Oral Tablet [Proton ix] 08/13/2019 12:00:00 AM EDT eCW1 ([facility]) Tamsulosin hydrochloride 0.4 MG Oral Capsule [Flomax] 08/13/2019 12:00:00 AM EDT eCW1 ([facility]) sildenafil 25 MG Oral Tablet [Viagra] 08/13/2019 12:00:00 AM EDT eCW1 ([facility]) pantoprazole 40 MG Delayed Release Oral Tablet [Proton ix] 08/13/2019 12:00:00 AM EDT eCW1 ([facility]) Tamsulosin hydrochloride 0.4 MG Oral Capsule [Flomax] 08/13/2019 12:00:00 AM EDT eCW1 ([facility]) Ergocalciferol [id number] UNT Oral Capsule 06/18/2019 12:00:00 AM EDT eCW1 ([facility]) canagliflozin 100 MG Oral Tablet [Invokana] 06/18/2019 12:00:00 AM EDT eCW1 ([facility]) Ergocalciferol 21350 UNT Oral Capsule 06/18/2019 12:00:00 AM EDT eCW1 ([facility]) canagliflozin 100 MG Oral Tablet [Invokana] 06/18/2019 12:00:00 AM EDT eCW1 ([facility]) Ergocalciferol 51143 UNT Oral Capsule 06/18/2019 12:00:00 AM EDT eCW1 ([facility]) canagliflozin 100 MG Oral Tablet [Invokana] 06/18/2019 12:00:00 AM EDT eCW1 ([facility]) canagliflozin 100 MG Oral Tablet [Invokana] 06/18/2019 12:00:00 AM EDT eCW1 ([facility]) Ergocalciferol 68876 UNT Oral Capsule 06/18/2019 12:00:00 AM EDT eCW1 ([facility]) canagliflozin 100 MG Oral Tablet [Invokana] 06/18/2019 12:00:00 AM EDT eCW1 ([facility]) Ergocalciferol 56668 UNT Oral Capsule 06/18/2019 12:00:00 AM EDT eCW1 ([facility]) canagliflozin 100 MG Oral Tablet [Invokana] 06/18/2019 12:00:00 AM EDT eCW1 ([facility]) Ergocalciferol 71647 UNT Oral Capsule 06/18/2019 12:00:00 AM EDT eCW1 ([facility]) canagliflozin 100 MG Oral Tablet [Invokana] 06/18/2019 12:00:00 AM EDT eCW1 ([facility]) Ergocalciferol 47127 UNT Oral Capsule 06/18/2019 12:00:00 AM EDT eCW1 ([facility]) canagliflozin 100 MG Oral Tablet [Invokana] 06/18/2019 12:00:00 AM EDT eCW1 ([facility]) Ergocalciferol 32542 UNT Oral Capsule 06/18/2019 12:00:00 AM EDT eCW1 ([facility]) canagliflozin 100 MG Oral Tablet [Invokana] 06/18/2019 12:00:00 AM EDT eCW1 ([facility]) Ergocalciferol 21359 UNT Oral Capsule 06/18/2019 12:00:00 AM EDT eCW1 ([facility]) canagliflozin 100 MG Oral Tablet [Invokana] 06/18/2019 12:00:00 AM EDT eCW1 ([facility]) Ergocalciferol 15725 UNT Oral Capsule 06/18/2019 12:00:00 AM EDT eCW1 ([facility]) canagliflozin 100 MG Oral Tablet [Invokana] 06/18/2019 12:00:00 AM EDT eCW1 ([facility]) Ergocalciferol 55276 UNT Oral Capsule 06/18/2019 12:00:00 AM EDT eCW1 ([facility]) canagliflozin 100 MG Oral Tablet [Invokana] 06/18/2019 12:00:00 AM EDT eCW1 ([facility]) Ergocalciferol 20682 UNT Oral Capsule 06/18/2019 12:00:00 AM EDT eCW1 ([facility]) canagliflozin 100 MG Oral Tablet [Invokana] 06/18/2019 12:00:00 AM EDT eCW1 ([facility]) canagliflozin 100 MG Oral Tablet [Invokana] 06/18/2019 12:00:00 AM EDT eCW1 ([facility]) canagliflozin 100 MG Oral Tablet [Invokana] 06/18/2019 12:00:00 AM EDT eCW1 ([facility]) Ergocalciferol 05976 UNT Oral Capsule 06/18/2019 12:00:00 AM EDT eCW1 ([facility]) canagliflozin 100 MG Oral Tablet [Invokana] 06/18/2019 12:00:00 AM EDT eCW1 ([facility]) Ergocalciferol 57197 UNT Oral Capsule 06/18/2019 12:00:00 AM EDT eCW1 ([facility]) empagliflozin 10 MG Oral Tablet [Jardiance] 06/18/2019 12:00:00 AM EDT eCW1 ([facility]) canagliflozin 100 MG Oral Tablet [Invokana] 06/18/2019 12:00:00 AM EDT eCW1 ([facility]) Ergocalciferol 27867 UNT Oral Capsule 06/18/2019 12:00:00 AM EDT eCW1 ([facility]) canagliflozin 100 MG Oral Tablet [Invokana] 06/18/2019 12:00:00 AM EDT eCW1 ([facility]) gabapentin 400 MG Oral Capsule 05/18/2019 12:00:00 AM EST eCW1 ([facility]) gabapentin 400 MG Oral Capsule 05/18/2019 12:00:00 AM EST eCW1 ([facility]) Basaglar KwikPen 100 UNIT/ML 02/15/2019 12:00:00 AM EST eCW1 ([facility]) Basaglar KwikPen 100 UNIT/ML 02/15/2019 12:00:00 AM EST eCW1 ([facility]) Basaglar KwikPen 100 UNIT/ML 02/15/2019 12:00:00 AM EST eCW1 ([facility]) Basaglar KwikPen 100 UNIT/ML 02/15/2019 12:00:00 AM EST eCW1 ([facility]) Basaglar KwikPen 100 UNIT/ML 02/15/2019 12:00:00 AM EST eCW1 ([facility]) Basaglar KwikPen 100 UNIT/ML 02/15/2019 12:00:00 AM EST eCW1 ([facility]) Basaglar KwikPen 100 UNIT/ML 02/15/2019 12:00:00 AM EST eCW1 ([facility]) Liam KwikPen 100 UNIT/ML 02/15/2019 12:00:00 AM EST eCW1 ([facility]) Chevy[place]lbong KwikPen 100 UNIT/ML 02/15/2019 12:00:00 AM EST eCW1 ([facility]) [place] KwikPen 100 UNIT/ML 02/15/2019 12:00:00 AM EST eCW1 ([facility]) Liam KwikPen 100 UNIT/ML 02/15/2019 12:00:00 AM EST eCW1 ([facility]) [place] [employer] 100 UNIT/ML 02/15/2019 12:00:00 AM EST eCW1 ([facility]) [place] [employer] 100 UNIT/ML 02/15/2019 12:00:00 AM EST eCW1 ([facility])
[2020-04-10 20:19] LABS: INR 0.89; PROTHROMBIN TIME 12.2 SECONDS (12.5-14.3)
[2020-04-10 20:20] LABS: PARTIAL THROMBOPLASTIN TIME 28.2 SECONDS (24.2-38.5)
[2020-04-10 20:23] LABS: D-DIMER QUANT 334.37 ng/ml (<500)
[2020-04-10 20:43] LABS: ALBUMIN 3.9 GM/DL (3.2-5.2); ALT/SGPT 37 U/L (12-78); BILIRUBIN,DIRECT < 0.1 MG/DL (0.0-0.2); BILIRUBIN,TOTAL 0.2 MG/DL (0.2-1.0); CK-MB VALUE MASS < 1.0 NG/ML (<3.6); CPK CREATINE PHOSPHOKINASE 101 U/L (39-308); LIPASE 120 U/L (73-393); MB/CK RELATIVE INDEX 0.99 (< OR =4); NT-PRO BNP 35 PG/ML (<125); TOTAL PROTEIN 7.9 GM/DL (6.4-8.2); TROPONIN I < 0.02 NG/ML (< 0.10)
[2020-04-10 22:35] VITALS: BP 148/90
--- NOTE | 2020-04-11 06:56 | ECGEPIP ---
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
--- NOTE | 2020-04-11 08:00 | REP ---
INDICATION: crackles l upper lobe COMPARISON: 12/26/2018 TECHNIQUE: Portable AP view of the chest FINDINGS: The mediastinum and cardiac silhouette are stable and within normal limits for portable technique. The lung mariano are clear without acute consolidation, effusion, or pneumothorax. Skeletal structures are intact. IMPRESSION: No acute cardiopulmonary process appreciated. <Electronically signed by Beto Reynolds > 04/11/20 0759
== END 2020-04-10 22:35 | disposition home or self-care (01) ==
LOC: M ED 17:16
DX: U07.1 COVID-19 (principal); F17.200 Nicotine dependence, unspecified, uncomplicated; F32.9 Major depressive disorder, single episode, unspecified; I10 Essential (primary) hypertension; E11.9 Type 2 diabetes mellitus without complications; K21.9 Gastro-esophageal reflux disease without esophagitis

== ENCOUNTER 2020-04-10 21:38 | Outpatient (CLI) | payer OTHER ==
[~2020-04-10] VITALS: Ht 182.9 cm; Wt 79.3 kg
--- NOTE | 2020-04-10 21:27 | HPEPDOC ---
[facility] Medical History & Physical Date of Admission Apr 10, 2020 Date of Service: Apr 10, 2020 Primary Care Physician: Jean Carlos Dunham MD Attending Physician: ABILIO WHALEY MD History and Physical TIME OF SERVICE: [id number] CHIEF COMPLAINT: dyspnea HISTORY OF PRESENT ILLNESS: This 44 yr old M presented w c/o dyspnea, cough, fevers, chills, muscle aches and loss of his sense of taste for 2 days; this evening he was diagnosed with COVID 19. His PMH puts him in the high risk category therefore ZENY Frausto requested transfer to [facility] for out pt antibody infusion. REVIEW OF SYSTEMS: see HPI PAST MEDICAL/ SURGICAL HISTORY: DM1 COPD ANALILIA w nocturnal PAP HTN DLP Depression GERD Migraine Loop recorder (02/2017) Dental surgery SOCIAL HISTORY: Tobacco use: former smoker FAMILY HISTORY: unknown cancer in mother, COPD in father ALLERGIES: Please see below. HOME MEDICATIONS: Please see below. PHYSICAL EXAMINATION: VITAL SIGNS: Please see below. GENERAL APPEARANCE: well nourished / well developed/ NAD HEENT: lower face covered with mask LUNGS: breath sounds diminished NEUROLOGICAL: speech not dysarthric PSYCHIATRIC: A&O LABORATORY DATA: WBC 5.5, PLTS 167, HCO3 28, CR 0.91, BUN 9, GLUC 78, trop <0.02, D-DIMER 334 IMAGING: n/a MICROBIOLOGY: COVID 19 + ASSESSMENT: is a 44 yr old w a hx of DM1, COPD, ANALILIA, HTN who was diagnosed with COVID 19 this evening and will be transferred to [facility] for antibody infusion. PLAN: 1. COVID 19 antibody infusion order set Dispo: home after infusion Home Medications Scheduled Amlodipine Besylate (Amlodipine Besylate) 10 Mg Tablet, 1 TAB PO DAILY Aspirin (Aspirin) 81 Mg Chw, 81 MG PO DAILY Atenolol (Atenolol) 100 Mg Tablet, 1 TAB PO DAILY Atorvastatin Calcium (Atorvastatin Calcium) 40 Mg Tablet, 1 TAB PO QHS Canagliflozin (Invokana) 100 Mg Tablet, 100 MG PO DAILY Chlorthalidone (Chlorthalidone) 25 Mg Tab, 25 MG PO DAILY Ciprofloxacin HCl (Cipro) 500 Mg Tablet, 1 TAB PO BID Divalproex Sodium (Divalproex Sodium ER) 500 Mg Tab.er.24h, 2 TAB PO QHS Fluticasone/Umeclidin/Vilanter (Trelegy Ellipta 100-62.5-25) 1 Each Blst.w.dev, 1 UNIT PO DAILY Hydralazine HCl (Hydralazine HCl) 10 Mg Tablet, 3 TAB PO DAILY Insulin Degludec (Tresiba Flextouch U-100) 100 Unit/1 Ml Insuln.pen, 70 UNITS SQ QHS Insulin Human Lispro (Humalog) 1 Units/0.01 Ml Inj, 1 UNITS SC ACHS Irbesartan (Irbesartan) 300 Mg Tab, 1 TAB PO QHS Metformin HCl (Metformin HCl) 500 Mg Tab, 500 MG PO DAILY Metronidazole (Flagyl) 500 Mg Tablet, 500 MG PO Q8H Spironolactone (Spironolactone) 25 Mg Tablet, 2 TAB PO DAILY Trazodone HCl (Trazodone HCl) 50 Mg Tab, PO QHS [vit d] , 50,000 PO weekly Scheduled PRN Acetaminophen (Acetaminophen) 500 Mg Tablet, 1 TAB PO for MIGRAINE Dextrose (Glucose) 4 Gm Chw, 4 GM PO PRN PRN for LOW BLOOD SUGAR Ibuprofen (Ibuprofen) 400 Mg Tablet, 1 TAB PO for MIGRAINE Miscellaneous Medications Citalopram Hydrobromide (Citalopram HBr) 40 Mg Tab Allergies Coded Allergies: No Known Allergies (Unverified , 02/28/17) A-FIB/CHADSVASC A-FIB History Current/History of A-Fib/PAF?: No Current PO Anticoag Therapy: No ABILIO WHALEY MD Apr 10, 2020 21:26
[~2020-04-10 21:38] MED LIST changes: +ALBUTEROL 90 MCG/ACT 8GM HFA INHALER INH PRN; +ALBUTEROL SULFATE 2.5 MG/0.5 ML INH NEB SOLN INH PRN; +EPINEPHrine INJ 1 MG/ML 1ML AMP IM PRN; +NS 1,000 ML IV SCH; +diphenhydrAMINE 50MG/ML VIAL (J1200) IV PRN; +methylPREDNISolone 125MG 2ML VIAL IV PRN
[2020-04-10] MEDS ORDERED: BAMLANIVIMAB 700 MG in NS 250 ML IV ONE (22:15)
[2020-04-10 22:56] VITALS: BP 150/87
[2020-04-10 23:35] VITALS: BP 151/95
[2020-04-10 23:50] VITALS: BP 144/100
[2020-04-11 00:20] VITALS: BP 152/98
[2020-04-11 00:40] VITALS: BP 141/97
[2020-04-11 01:11] VITALS: BP 154/87
[2020-04-11] MEDS ORDERED: ACETAMINOPHEN 500 MG TAB PO ONE (01:30)
[2020-04-11 01:40] VITALS: BP 145/92
== END 2020-04-11 01:50 | disposition home or self-care (01) ==
LOC: M OPCLIICU 21:38 → M 4MAIN 22:35 → M OPCLIICU 04-11 01:50
PROVIDERS: ATTEND Internal Medicine
DX: U07.1 COVID-19 (principal)

== ENCOUNTER → 2020-04-23 | Outpatient (CLI) | payer SELFPAY ==
[~2020-04-23] MED LIST changes: -ALBUTEROL 90 MCG/ACT 8GM HFA INHALER INH PRN; -ALBUTEROL SULFATE 2.5 MG/0.5 ML INH NEB SOLN INH PRN; -EPINEPHrine INJ 1 MG/ML 1ML AMP IM PRN; +IBUP1TAB5 PO; -IBUP40TA PO; -LISI-538 PO; +LISI10TA22 PO; -LISI10TA4 PO; +LISI20TA33 PO; +MONT10TA10 PO; -MONT5TAB2 PO; -NS 1,000 ML IV SCH; -diphenhydrAMINE 50MG/ML VIAL (J1200) IV PRN; -methylPREDNISolone 125MG 2ML VIAL IV PRN
== END ==
LOC: M LABSMTC 10:57
PROVIDERS: ATTEND Pediatrics
DX: Z20.822 Contact with and (suspected) exposure to COVID-19 (principal)

== ENCOUNTER → 2020-04-30 | Outpatient (REF) | payer OTHER ==
[2020-04-30 16:25] LABS: HEPATITIS B SURFACE ANTIBODY NEGATIVE (POSITIVE); HEPATITIS B SURFACE ANTIGEN NEGATIVE (NEGATIVE); HEPATITIS C VIRUS ABY INDEX 0.1 INDEX (<0.8); HIV 1&2 SCREEN CENTAUR NEGATIVE (NEGATIVE)
[2020-05-02 23:06] LABS: HEPATITIS C QUANTITATION HCV Not Detected IU/mL (.)
== END ==
LOC: M SFHCPLAZ 11:33
PROVIDERS: ATTEND Physician Assistant Medical
DX: Z72.51 High risk heterosexual behavior (principal)

== ENCOUNTER → 2020-05-01 | Outpatient (REF) | payer OTHER ==
[2020-05-01 14:26] LABS: CHLAMYDIA DNA AMPLIFICATION NEGATIVE (NEGATIVE); GC DNA AMPLIFICATION NEGATIVE (NEGATIVE)
== END ==
LOC: M SFHCPLAZ 11:36
PROVIDERS: ATTEND Physician Assistant Medical
DX: Z72.51 High risk heterosexual behavior (principal)

== ENCOUNTER → 2020-05-21 | Outpatient (CLI) | payer OTHER ==
[~2020-05-21] MED LIST changes: +ALBU8.5H; +ALBU83IN; -AMIT10TA PO; +AMIT10TA7 PO; +BASA100I SC; +DEXT4TAB2 PO; +GABA800T4; -GLUC4CHW19 PO; +VITA-199 PO
--- NOTE | 2020-05-27 02:15 | ECWPNPC ---
PATIENT NAME: PINKY CANNON : 1975 GENDER: MALE VISIT DATE: 05/21/2020 DISCHARGE DATE: 05/21/20917 VISIT LOCKED DATE TIME: PHYSICIAN: YUDITH CASTANEDA PHYSICIAN PAGER NO: ACTIVE RESOURCE: YUDITH CASTANEDA REASON FOR APPOINTMENT 1. BACK/FOOT HISTORY OF PRESENT ILLNESS DEPRESSION SCREENING: PHQ-2 (2015 EDITION) LITTLE INTEREST OR PLEASURE IN DOING THINGS?NOT AT ALL FEELING DOWN, DEPRESSED, OR HOPELESS?NOT AT ALL TOTAL SCORE0 44-YEAR-OLD MAN IN FOR INITIAL PAIN CONSULT REGARDING BACK AND FOOT PAIN. PATIENT IS CURRENTLY TAKING GABAPENTIN FOR HIS FOOT PAIN AND ADMITS THAT THIS HAS NOT BEEN BENEFICIAL. HE DENIES HISTORY OF INJECTIONS FOR HIS BACK PAIN. HE DOES ADMIT TO A HISTORY OF TRAUMA TO THE LOW BACK AREA APPROXIMATELY 20 YEARS AGO WHEN HE WAS WORKING A [employer] AND FELL FROM [place]. HE FURTHER ADMITS THAT HE PERFORMS HOME EXERCISES THAT WERE PRESCRIBED TO HIM BY HIS PCP. GENERAL: - - -. FALL RISK SCREENING: SCREENING : NO FALLS REPORTED IN THE LAST YEAR , : NO FALLS REPORTED IN THE LAST YEAR. PAIN SCREENING: PATIENT HAS A COMPLAINT OF ACUTE OR CHRONIC PAIN :YES LOCATION OF PAIN:LOW BACK, LEFT HIP, RIGHT HIP, FEET INTENSITY OF PAIN (SCALE OF 1 TO 10):7 WHAT DOES YOUR PAIN FEEL LIKE:CONTINOUS, SHARP PINS AND NEEDLES AND PAIN CONTINUOUSLY IN BOTH FEET DURATION:CONTINOUS, CONSTANT PAIN IS INCREASED BY:ACTIVITIES, PROLONGED STANDING PAIN IS DECREASED BY:OTHERS NOTHING HELPS THE PAIN. PATIENT HAS TRIED HEAT, ICE AND MEDICATIONS. NURSING NOTE: - - -. PAIN CENTER INTAKE QUESTIONS: DO YOU HAVE A HISTORY OF MRSA? :NO DO YOU TAKE A BLOOD THINNERS? :NO 81MG BABY ASPIRIN DAILY DO YOU HAVE ANY BLEEDING DISORDERS? :NO ANY NEW NUMBNESS OR WEAKNESS IN YOUR LEGS OR ARMS? :NO ANY PACEMAKER,DEFIBRILLATOR, OR DORSAL COLUMN STIMULATOR? :NO LOOP RECORDER DO YOU HAVE ANY RASHES OR OPEN SORES? :NO ARE YOU ALLERGIC TO IV DYE? :NO ARE YOU DIABETIC? :YES TYPE II ANY NEW PROBLEMS WITH YOUR MEDICATIONS? :NO HAVE YOU RECEIVED A VACCINE IN THE PAST 30 DAYS? :YES IF SO WHAT VACCINE AND WHEN? COVID INFUSION 04/08/2020 DO YOU PLAN TO RECEIVE A VACCINE IN THE NEXT 21 DAYS? :NO DO YOU NEED ANY PRESCRIPTION? :NO DO YOU TAKE ANY IMMUNOSUPPRESSIVE MEDICATIONS? :NO DO YOU HAVE ANY KIDNEY OR LIVER DISEASE? :NO IS THERE A CHANCE YOU COULD BE ? :NO ARE YOU BREAST FEEDING? :NO CURRENT MEDICATIONS TAKING GLUCOSE 4 GM TABLET CHEWABLE TAKE ONE TABLET ORALLY NEEDED FOR LOW BLOOD SUGARS TAKING RA ALCOHOL SWABS 70 % PAD USE 5 TIMES A DAY FOR INSULINS AND 4 TIMES A DAY FOR BLOOD GLUCOSE TESTING SUBCUTANEOUSLY 5 TIMES A DAY TAKING OMEPRAZOLE 40 MG CAPSULE DELAYED RELEASE 1 CAPSULE ORALLY DAILY TAKING ALCOHOL SWABS 70 % PAD 1 TOPICALLY FIVE TIMES DAILY FOR INSULIN & 4TIMES DAILY FOR TESTING TAKING BD PEN NEEDLE [place] U/F 32G X 4 MM MISCELLANEOUS DIRECTED SUBCUTANEOUSLY 5 TIMES A DAY NEEDED TAKING LANCETS 30G - MISCELLANEOUS DX E11.9 ONE TOUCH DELICA SUBCUTANEOUSLY FIVE TIMES DAILY AND NEEDED TAKING ATORVASTATIN CALCIUM 40 MG TABLET 1 TABLET ORALLY ONCE A DAY AT BEDTIME TAKING ERGOCALCIFEROL 1.25 MG (90505 UT) CAPSULE 1 CAPSULE ORALLY EVERY OTHER WEEK TAKING ASPIRIN 81 MG TABLET CHEWABLE 1 TABLET ORALLY ONCE A DAY TAKING BD PEN NEEDLE MINI U/F 31G X 5 MM MISCELLANEOUS DIRECTED SUBCUTANEOUSLY 5 TIMES / DAY NEEDED TAKING [employer] W/DEVICE KIT DIRECTED _ QID TAKING TRELEGY ELLIPTA 100-62.5-25 MCG/INH AEROSOL POWDER BREATH ACTIVATED 1 PUFF INHALATION ONCE A DAY TAKING HYDROXYZINE HCL 25 MG TABLET 1 TABLET NEEDED FOR PRURITUS ORALLY EVERY 6 HRS TAKING TRAZODONE HCL 50 MG TABLET 1 TABLET AT BEDTIME NEEDED ORALLY ONCE A DAY TAKING CELEXA 40 MG TABLET 1 TAB ORALLY ONCE A DAY TAKING VENTOLIN HFA 108 (90 BASE) MCG/ACT AEROSOL SOLUTION 1 PUFFS NEEDED INHALATION FRANCE EVERY 6 HRS TAKING HYDRALAZINE HCL 10 MG TABLET 1 TABLET WITH FOOD ORALLY THREE TIMES DAILY TAKING IRBESARTAN 300 MG TABLET 1 TABLET ORALLY QPM TAKING HUMALOG PEN 100 UNIT/ML SOLUTION PEN-INJECTOR MDD :33UNITS/DAY SLIDING SCALE/MEAL SUBCUTANEOUS BEFORE MEALS AND AT BEDTIME TAKING INVOKANA 100 MG TABLET 1 TABLET BEFORE FIRST MEAL ORALLY ONCE A DAY TAKING VIAGRA 25 MG TABLET 1 TABLET NEEDED ORALLY ONCE A DAY TAKING ATENOLOL 100 MG TABLET 1 TABLET ORALLY ONCE A DAY TAKING AMLODIPINE BESYLATE 5 MG TABLET 1 TABLET ORALLY ONCE A DAY TAKING CHLORTHALIDONE 25 MG TABLET TAKE ONE TABLET BY MOUTH EVERY MORNING WITH FOOD TAKING BASAGLAR KWIKPEN 100 UNIT/ML SOLUTION PEN-INJECTOR 60 UNITS SUBCUTANEOUS BEFORE BEDTIME TAKING ONETOUCH VERIO - STRIP DIRECTED DX E11.9 AC TID AND QHS, PRN WHEN NOT WELL FIVE TIMES DAILY AND NEEDED TAKING GABAPENTIN 800 MG TABLET 1 TABLET ORALLY THREE TIMES DAILY TAKING FLUNISOLIDE 25 MCG/ACT (0.025%) SOLUTION 2 SPRAYS IN EACH NOSTRIL NASALLY TWICE A DAY TAKING IBUPROFEN 400 MG TABLET 1 TABLET WITH FOOD OR MILK NEEDED ORALLY THREE TIMES A DAY NEEDED FOR PAIN OR FEVER TAKING APAP 500 MG CAPSULE 1 CAPSULE NEEDED ORALLY EVERY 6 HRS NOT-TAKING TIZANIDINE HCL 4 MG TABLET 1 TABLET NEEDED ORALLY THREE TIMES A DAY UNKNOWN LEVALBUTEROL TARTRATE 45 MCG/ACT AEROSOL 1 PUFF NEEDED INHALATION EVERY 4 HRS MEDICATION LIST REVIEWED AND RECONCILED WITH THE PATIENT PAST MEDICAL HISTORY GERD HEMOPTYSIS, COPD-GOLD STANDARD MOD. STAGE II 69% FEV1, FEV1/FVC RATIO 0.66 STAGE II MODERATE COPD ON KERMIT 12/2015 [facility] CONSULTED, NO FURTHER EPISODES +MH T2DM IREQUIRING RAPID ONSET (02/2017 [facility] RANGE)C WILLIAMS 65 PANCREATIC ANTIBIOTIC NEG./ IA2 NEG./ ZT8 ANTIBODY ALL NEG. ADMITTED IN DKA VS. HHS03/2017, C BETA HYDROXY BUTYLATE>46, PH 7.30, C-PEPTIDE 2.1 C FBS 330 HTNIVE URGENCY 07/2017 ED, [facility]-ECHO 07/14/2017 NL LV SYSTOLIC DYSFXN, GRADE 1 LV DIASTOLIC DYSFXN, MILD ELEVATED PAP'S OTHERWISE NL ED 07/20/2018 NEW LBBB ON EKG FOLLOWS C DR. MIRANDA SYNCOPE C 02/26 HOLTER SYMPS. NOT CORRELATING C ANY ABNL RHYTHM, 30DAY MULTIEVENT MONITOR 05/06 TO 06/05/2016 UNDERLYING SINUS C OCCASIONAL PAC'S INTERMITTENTLY FREQ. PVC'S 74-167BPM, 74-176 BPM FREQ. PVCS 47SYMP. TRANSMISSIONS C SINUS ONLY&OCCASIONALLY ISOLATED PVC'S, & SINUS TACHYC. TO 142 10 ASYMP. AUTOTRIGGERED EVENTS C S. TACH. 120-165; NO SIGNIFICANT ANITA OR TACHY ARRHYTHMIAS 10/2018 ACUTE ISCHEMIA IN RT. POST. FRONTAL LOBE MIGRAINE VS. ACUTE ISCHEMIA HYPERTENSION, ESSENTIAL-H/O HYPERTENSIVE CRISIS SEEN IN ED 09/2014 IN [facility] [place] C H/O COCAINE USE CHRONIC MIGRAINES ALLERGIES N.K.D.A. SURGICAL HISTORY EGD C DR. BELL SMALL HIATAL HERNIA O/W NEG/NL 03/2016 SOCIAL HISTORY GENERAL: TOBACCO USE ARE YOU A:CURRENT SMOKER HOW OFTEN DO YOU SMOKE CIGARETTES?EVERY DAY HOW SOON AFTER YOU WAKE UP DO YOU SMOKE YOUR FIRST CIGARETTE?WITHIN 5 MIN HOW MANY CIGARETTES A DAY DO YOU SMOKE?5 OR LESS ARE YOU INTERESTED IN QUITTING?THINKING ABOUT QUITTING PATIENT COUNSELED ON THE DANGERS OF TOBACCO USE AND URGED TO QUIT:04/30/2020 COUNSELED THE PATIENT ON SMOKING CESSATION, EDUCATION [id number]/17/2021 SMOKING CESSATION INFORMATION GIVEN04/30/2020 PREVIOUS QUIT ATTEMPTS?YES, MORE THAN 6 MONTHS AGO. LATEX QUESTIONNAIRE LATEX ALLERGY : HAVE YOU EVER DEVELOPED ANY TYPE OF REACTION AFTER HANDLING LATEX PRODUCTS SUCH RUBBER GLOVES, CONDOMS, DIAPHRAGMS, BALLOONS, SOCKS, OR UNDERWEAR?NO LATEX ALLERGY : HAVE YOU EVER DEVELOPED ANY TYPE OF REACTION DURING OR AFTER DENTAL APPOINTMENT, VAGINAL/RECTAL EXAMINATION, SURGICAL PROCEDURE, OR ANY OTHER EXPOSURE?NO LATEX RISK : HAVE YOU EVER HAD ANY DIFFICULTY BREATHING OR HIVES AFTER EATING OR HANDLING ANY FRUITS, OR VEGETABLES; SUCH KIWI, BANANAS, STONE FRUITS, OR CHESTNUTSNO LATEX RISK : DO YOU HAVE A PREVIOUS PERSONAL HISTORY OF MORE THAN NINE SURGERIES, SPINA BIFIDA, OR REPEATED CATHERIZATIONS? NO LATEX RISK : ARE YOU FREQUENTLY EXPOSED TO LATEX PRODUCTS IN YOUR OCCUPATION?NO DATE ASKED : 05/21/2020 ALCOHOL USE: NO. LUNG CANCER SCREENING SMOKING STATUS:CURRENT SMOKER IS THE PATIENT BETWEEN THE AGE OF 56 AND 78?NO ALCOHOL SCREENING DID YOU HAVE A DRINK CONTAINING ALCOHOL IN THE PAST YEAR?YES HOW MANY DRINKS DID YOU HAVE ON A TYPICAL DAY WHEN YOU WERE DRINKING IN THE PAST YEAR?1 OR 2 (0 POINTS) HOW OFTEN DID YOU HAVE A DRINK CONTAINING ALCOHOL IN THE PAST YEAR?MONTHLY OR LESS (1 POINT) POINTS1 INTERPRETATIONNEGATIVE RECREATIONAL DRUG USE DRUG USE?NO CAFFEINE CAFFEINE USE?YES PT DRINKS A CUP OR TWO A WEEK SEXUAL HX HAD SEX IN THE LAST 12 MONTHS (VAGINAL, ORAL, OR ANAL)?YES WITHWOMEN ONLY USE PROTECTION?YES HOW OFTEN?SOME OF THE TIME HAVE YOU EVER HAD AN STD?NO HIV / HEP-C SCREENING HIV TEST OFFERED TO PATIENT:YES DATE OFFERED:04/30/2020 TEST ACCEPTED:YES HEP-C TEST OFFERED TO PATIENT:NO BROCHURE PROVIDED TO PATIENTYES ORIENTAL ORTHODOX ORIENTAL ORTHODOX PT STATES NO PREFERENCE LANGUAGE LANGUAGES SPOKEN:MOLDOVAN EDUCATION LEVEL OF EDUCATION:NOT FINISHED HIGH SCHOOL LEARNING BARRIERS / SPECIAL NEEDS BARRIERS TO LEARNING?NO HEARING IMPAIRED?NO VISION IMPAIRED?YES :CORRECTIVE LENSES COGNITIVELY IMPAIRED?NO READINESS TO LEARN?YES LEARNING PREFERENCES?YES ONE ON ONE LEARNING CAPABILITIES PRESENT?YES EMOTIONAL BARRIERS?NO SPECIAL DEVICES?YES BI PAP, NEBULIZER :CANE CANE AT TIMES SKATING CARHOP NEEDED?NO DOMESTIC VIOLENCE DO YOU FEEL SAFE IN YOUR ENVIRONMENT?YES OCCUPATION: [employer] DAILY TIMES. DIET: NO CONCENTRATED SWEETS.. EXERCISE: WALKS "WHEN I CAN". MARITAL STATUS: SINGLE. OTHERS AT HOME: LIVE BY SELF NO PETS. - PFS REFERRAL NEEDED?NO CLERGY REFERRAL NEEDED?NO PUBLIC HEALTH REFERRAL NEEDED?NO WAS THE PROVIDER NOTIFIED OF ANY PERTINENT INFO?NO HAS THE PATIENT BEEN EDUCATED REGARDING HIS/HER PLAN OF CARE?YES HAS THE PATIENT BEEN EDUCATED REGARDING PAIN, THE RISK FOR PAIN, THE IMPORTANCE OF EFFECTIVE PAIN MANAGEMENT, AND THE PAIN ASSESSMENT PROCESS?YES HOUSING: RENTS APARTMENT. ADVANCE DIRECTIVE ADVANCE DIRECTIVE DISCUSSED WITH PATIENT:YES WE DISCUSSED AND PT STATES HE WOULD HAVE HIS SISTER I WILL GIVE PRINTED MATERIAL TO TAKE HOMD HOSPITALIZATION/MAJOR DIAGNOSTIC PROCEDURE DKA VS. HHS SEE ABOVE FOR DETAILS 03/2017 HTN 07/11-07/13/2017 REVIEW OF SYSTEMS CONSTITUTIONAL: ANY RECENT FEVER NO . CHILLS NO . WEIGHT CHANGE OF UNKNOWN REASONS NO . MUSCULOSKELETAL: ANY UNUSUAL JOINT PAIN OR SWELLING NOT MENTIONED NO . SYSTEMIC LUPUS NO . ANY NEUROMUSCULAR DISORDER NOT MENTIONED NO . LYME DISEASE NO . GASTROENTEROLOGY: ANY NEW CHANGE IN BOWEL CONTROL? NO . HISTORY OF LIVER DISORDER NOT MENTIONED NO . HISTORY OF UNUSUAL ABDOMINAL PAIN OR CRAMPING NOT MENTIONED NO . NO CONSTIPATION. GENITOURINARY: ANY NEW CHANGE IN BLADDER CONTROL? NO . ANY RENAL/KIDNEY CONDITON NOT MENTIONED NO . NEUROLOGY: HISTORY OF TBI NOT MENTIONED NO . OTHER NEW NUMBNESS OR PAIN PATTERNS NOT MENTIONED NO . NEW ONSET DIZZINESS OR NEUROLOGICAL CHANGES NOT MENTIONED NO . HISTORY OF SEVERE HEADACHES NOT MENTIONED NO . HISTORY OF STROKE OR NEUROLOGICAL DISORDER NOT MENTIONED NO . CARDIOLOGY: HEART SURGERY NO . CONGESTIVE HEART FAILURE/FLUID OVERLOAD NOT MENTIONED NO . HISTORY OF CHEST PAIN,IRREGULAR HEART BEAT NOT MENTIONED NO . RESPIRATORY: SHORTNESS OF BREATH ON EXERTION, WHEEZES, UNUSUAL COUGH NOT MENTIONED NO . ENDOCRINOLOGY: ADRENAL GLAND OR THYROID DISORDERS NOT MENTIONED NO . UNUSUAL URINATION, DIZZINESS OR LETHARGY NOT MENTIONED NO . VITAL SIGNS WT 180.2 LBS, HT 70.5 IN, BMI 25.49 INDEX, BP 157/99 MM HG, HR 89 /MIN, RR 18 /MIN, TEMP 98 F, OXYGEN SAT % 100%, SAFE IN ENV? (Y/N) YES, NA INITIALS AW 0826, REVIEWED BY: BHUMI MEYER MA. EXAMINATION GENERAL EXAMINATION: GENERALNO ACUTE DISTRESS, WELL NOURISHED AND HYDRATED. PSYCHAPPROPRIATE MOOD AND AFFECT . LUNGS:CLEAR TO AUSCULTATION BILATERALLY, NO WHEEZES, RHONCHI, RALES. HEART:NO MURMURS, REGULAR RATE AND RHYTHM. BACK:POINT TENDER BILATERAL LUMBAR SPINE, STARTING SKIN SHOWS NO ERYTHEMA, ECCHYMOSIS, INCREASED ONCE, AND/OR SKIN ERUPTIONS NOTED. PATIENT DOES ENDORSE INCREASED PAIN WITH FACET LOADING. . MUSCULOSKELETAL:NOTABLE WEAKNESS OF THE LEFT LOWER EXTREMITY, RIGHT LOWER EXTREMITY WITHIN NORMAL LIMITS . ASSESSMENTS NEUROPATHY - G62.9 TREATMENT NEUROPATHY DECREASE GABAPENTIN TABLET, 600 MG, 1 TABLET, ORALLY, THREE TIMES DAILY, 7 DAY(S), 21, REFILLS 0 START GABAPENTIN CAPSULE, 300 MG, 1 CAPSULE, ORALLY, THREE TIMES DAILY START 2ND WEEK, 7 DAYS, 21 START GABAPENTIN CAPSULE, 100 MG, 1 CAPSULE, ORALLY, THREE TIMES DAILY START 3RD WEEK, 7 DAYS, 21 OTHERS START LYRICA CAPSULE, 75 MG, 1 CAPSULE, ORALLY, TWICE DAILY, 30 DAYS, 60 NOTES: 44-YEAR-OLD MALE IN FOR INITIAL PAIN CONSULT. GIVEN PRESENTING SYMPTOMS AND RESULTS OF PHYSICAL EXAMINATION RECOMMEND BILATERAL THERAPEUTIC LUMBAR FACET BLOCK L4-L5 WITH POST PROCEDURAL FOLLOW-UP. FURTHER RECOMMENDED TAPERING OFF GABAPENTIN STARTING AT 600 MG 3 TIMES A DAY X1 WEEK THEN DECREASE TO 300 MG 3 TIMES A DAY X1 WEEK THEN DECREASE TO 100 MG TWICE A DAY. PROCEDURE CODES FA211 ESTABILISHED PATIENT [facility] CHARGE DISPOSITION & COMMUNICATION FOLLOW UP POSTPROCEDURE (REASON: BILATERAL THERAPEUTIC LUMBAR FACET BLOCK L4-L5) ELECTRONICALLY SIGNED BY GILDA STUBBS ON 05/26/2020 AT 08:14 AM EDT DISCLAIMER : THIS IS A VISIT SUMMARY EXTRACTED FROM THE [facility] CHART. IT IS NOT A COPY OF THE [facility] PROGRESS NOTE. TRUE
== END ==
LOC: M PAIN 08:30
PROVIDERS: ATTEND Family Medicine
DX: G62.9 Polyneuropathy, unspecified (principal); K21.9 Gastro-esophageal reflux disease without esophagitis; J44.9 Chronic obstructive pulmonary disease, unspecified; G43.709 Chronic migraine without aura, not intractable, without status migrainosus; E11.9 Type 2 diabetes mellitus without complications; F17.210 Nicotine dependence, cigarettes, uncomplicated; Z79.82 Long term (current) use of aspirin; Z79.4 Long term (current) use of insulin; Z79.899 Other long term (current) drug therapy

== ENCOUNTER 2020-07-26 04:53 | Emergency (ER) | payer OTHER ==
[~2020-07-26] VITALS: Ht 182.9 cm; Wt 79.8 kg
[~2020-07-26 04:53] MED LIST changes: -DEXT4TAB2 PO; +SFHGLU4TA PO
[2020-07-26 05:46] LABS: BASO % 0.5 % (0.0-1.0); EOS # 0.1 10^3/uL (0.0-0.5); EOS % 1.2 % (0.0-3.0); HEMATOCRIT 39.9 % (42.0-52.0); HEMOGLOBIN 13.6 g/dl (13.5-17.5); LYMPH # 3.4 10^3/uL (1.5-5.0); LYMPH % 44.8 % (24.0-44.0); MEAN CORPUSCULAR HEMOGLOBIN 30.9 pg (27.0-33.0); MEAN CORPUSCULAR HGB CONC 34.1 g/dl (32.0-36.5); MEAN CORPUSCULAR VOLUME 90.7 fl (80.0-96.0); MONO # 0.6 10^3/uL (0.0-0.8); MONO % 8.4 % (2.0-8.0); NEUTROPHILS # 3.4 10^3/uL (1.5-8.5); NEUTROPHILS % 44.8 % (36.0-66.0); PLATELET COUNT, AUTOMATED 181 10^3/uL (150-450); WHITE BLOOD COUNT 7.6 10^3/uL (4.0-10.0)
[2020-07-26 05:57] LABS: INR 0.96
[2020-07-26 06:21] LABS: BLOOD UREA NITROGEN 13 MG/DL (7-18); CALCIUM LEVEL 9.4 MG/DL (8.5-10.1); CARBON DIOXIDE LEVEL 26 MEQ/L (21-32); CHLORIDE LEVEL 107 MEQ/L (98-107); CK-MB VALUE MASS 1.8 NG/ML (<3.6); CPK CREATINE PHOSPHOKINASE 289 U/L (39-308); CREATININE FOR GFR 0.89 MG/DL (0.70-1.30); GLOMERULAR FILTRATION RATE > 60.0 (>60); GLUCOSE, FASTING 100 MG/DL (70-100); MB/CK RELATIVE INDEX 0.62 (< OR =4); POTASSIUM SERUM 3.9 MEQ/L (3.5-5.1); SODIUM LEVEL 141 MEQ/L (136-145); TROPONIN I < 0.02 NG/ML (< 0.10)
[2020-07-26] MEDS ORDERED: KETOROLAC 30 MG/ML 1ML VIAL IV ONE (06:45)
[2020-07-26] MEDS ORDERED: diazePAM 10MG/2ML SYRINGE (J3360 PER 5MG) IV ONE (06:50)
[2020-07-26] MEDS ORDERED: atenoloL 50 MG TAB PO ONE (07:05)
[2020-07-26 07:19] VITALS: BP 153/102
[2020-07-26] MEDS ORDERED: ISOVUE-370 76% 100ML VIAL As Ordered ONE (07:24)
[2020-07-26] MEDS ORDERED: MORPHINE 4 MG/ML 1ML VIAL/SYRINGE (J2270) IV ONE (08:00)
--- NOTE | 2020-07-26 08:08 | REPVR ---
PROCEDURE INFORMATION: Exam: CTA Chest With Contrast Exam date and time: 07/26/2020 7:35 AM Age: 45 years old Clinical indication: Pain; Other: Pleuritic chest; Additional info: Pleuritic chest pain, RO pe TECHNIQUE: Imaging protocol: Computed tomographic angiography of the chest with contrast. 3D rendering (Not supervised by radiologist): MIP and/or 3D reconstructed images were created by the technologist. Radiation optimization: All CT scans at this facility use at least one of these dose optimization techniques: automated exposure control; mA and/or kV adjustment per patient size (includes targeted exams where dose is matched to clinical indication); or iterative reconstruction. Contrast material: ISOVUE 370; Contrast volume: 75 ml; Contrast route: INTRAVENOUS (IV); COMPARISON: CT ANGIO CHEST 12/26/2018 1:25 PM FINDINGS: Pulmonary arteries: Normal. No pulmonary emboli. Aorta: Atherosclerotic disease of the abdominal aorta. Lungs: Centrilobular and paraseptal emphysema. Atelectasis or scarring in the right lobe, lingula, and right base. Pleural spaces: Unremarkable. No pneumothorax. No pleural effusion. Heart: Unremarkable. No cardiomegaly. No pericardial effusion. Lymph nodes: Enlarged subcarinal and left hilar lymph nodes. Liver: Hepatomegaly and steatosis. Bones/joints: Unremarkable. No acute fracture. Soft tissues: Unremarkable. IMPRESSION: No acute pulmonary embolic disease. Electronically signed by: James Bridges On 07/26/2020 08:07:37 AM
--- NOTE | 2020-07-26 08:11 | REPVR ---
PROCEDURE INFORMATION: Exam: CT Cervical Spine Without Contrast Exam date and time: 07/26/2020 7:35 AM Age: 45 years old Clinical indication: Neck pain; Additional info: Severe neck pain down L arm and upper back TECHNIQUE: Imaging protocol: Computed tomography images of the cervical spine without contrast. Radiation optimization: All CT scans at this facility use at least one of these dose optimization techniques: automated exposure control; mA and/or kV adjustment per patient size (includes targeted exams where dose is matched to clinical indication); or iterative reconstruction. COMPARISON: CR SPINE LS COMPLETE 02/28/2020 11:28 AM FINDINGS: Bones/joints: No acute fracture. Normal alignment. Discs/Spinal canal/Neural foramina: No significant disc protrusion. No severe spinal canal stenosis. No significant neural foraminal narrowing. Lungs: Lung apices are normal. Soft tissues: Unremarkable. IMPRESSION: No acute findings. Electronically signed by: James Bridges On 07/26/2020 08:10:49 AM
[2020-07-26] MEDS ORDERED: METH-1165 PO (08:22)
[2020-07-26] MEDS ORDERED: LIDO5DIS41 TD (08:22)
--- NOTE | 2020-07-26 08:26 | REPVR ---
PROCEDURE INFORMATION: Exam: XR Chest Exam date and time: 07/26/2020 6:34 AM Age: 45 years old Clinical indication: Other: Chest pain TECHNIQUE: Imaging protocol: XR of the chest. Views: 1 view. COMPARISON: CR Chest, 1 view 04/10/2020 8:10 PM FINDINGS: Lungs: Mild nonspecific bilateral perihilar reticulonodular opacities. Pleural spaces: Unremarkable. No pleural effusion. No pneumothorax. Heart/Mediastinum: Unremarkable. No cardiomegaly. Bones/joints: Unremarkable. IMPRESSION: Mild nonspecific bilateral perihilar reticulonodular opacities. Electronically signed by: James Bridges On 07/26/2020 08:26:09 AM
[2020-07-26 09:07] VITALS: BP 145/90
--- NOTE | 2020-07-26 13:52 | ECGEPIP ---
[facility] - ED Test Date: 2020-07-26 Pat Name: PINKY CANNON Department: Room: - Gender: Male Sign Designer: Mariaa BARGER : 1975 Requested By: SHARMIN JASSO Order Number: [id number] Reading MD: Betzy Granado Measurements Intervals [place] Rate: 85 P: 67 [place]: 122 QRS: 66 QRSD: 80 T: 46 QT: 374 QTc: 445 Interpretive Statements Sinus rhythm with premature supraventricular complexes NSTTW abnormalities similar 04/10/20 Electronically Signed on 07-26-2020 13:52:03 EDT by Betzy Granado
[2020-07-27] MEDS ORDERED: LIDO1ADH10 (13:12)
== END 2020-07-26 09:16 | disposition home or self-care (01) ==
LOC: M ED 04:53
DX: M54.12 Radiculopathy, cervical region (principal); R94.31 Abnormal electrocardiogram [ECG] [EKG]; E11.9 Type 2 diabetes mellitus without complications; I10 Essential (primary) hypertension; J44.9 Chronic obstructive pulmonary disease, unspecified; G47.33 Obstructive sleep apnea (adult) (pediatric); E78.5 Hyperlipidemia, unspecified; K21.9 Gastro-esophageal reflux disease without esophagitis; F41.9 Anxiety disorder, unspecified; F33.9 Major depressive disorder, recurrent, unspecified; F17.200 Nicotine dependence, unspecified, uncomplicated; Z79.4 Long term (current) use of insulin; Z79.82 Long term (current) use of aspirin; Z79.899 Other long term (current) drug therapy
CPT/HCPCS: 71045; 71275; 72125; 80048; 82550; 82553; 85025; 85610; 85730; 93005; 93041; 94760; 96374; 96375; 99285; J1885; J2270; J3360; Q9967

== ENCOUNTER 2020-07-27 12:59 | Emergency (ER) | payer OTHER ==
[~2020-07-27] VITALS: Ht 182.9 cm; Wt 79.3 kg
[~2020-07-27 12:59] MED LIST changes: +LIDO5DIS41 TD; +METH-1165 PO
[2020-07-27] MEDS ORDERED: LIDO1ADH10 (13:12)
[2020-07-27 14:15] VITALS: BP 154/101
== END 2020-07-27 15:15 | disposition left against medical advice (07) ==
LOC: M ED 12:59
DX: Z53.21 Procedure and treatment not carried out due to patient leaving prior to being seen by health care provider (principal)

== ENCOUNTER → 2020-08-02 | Outpatient (CLI) | payer OTHER ==
[~2020-08-02] MED LIST changes: +LIDO1ADH10
== END ==
LOC: M LABSMTC 08:24
PROVIDERS: ATTEND Anesthesiology
DX: Z01.818 Encounter for other preprocedural examination (principal); Z11.52 Encounter for screening for COVID-19

== ENCOUNTER 2020-08-07 06:40 | Day surgery (SDC) | payer OTHER ==
[~2020-08-07] VITALS: Ht 182.9 cm; Wt 74.4 kg
[~2020-08-07 06:40] MED LIST changes: +NS 1,000 ML IV ONE
[2020-08-07] MEDS ORDERED: LIDOCAINE 2% 100MG/5ML SDV (FOR ANES.) As Ordered ONE (07:13)
[2020-08-07] MEDS ORDERED: propofoL 200 MG/20 ML VIAL As Ordered ONE (07:13)
--- NOTE | 2020-08-07 07:57 | ROOR ---
Patient Name: Margie Lane Procedure Date: 08/07/2020 7:33 AM Date of : 1975 Age: 45 Room: [facility] Gender: Male Note Status: Finalized Procedure: Colonoscopy Indications: Hematochezia, Change in bowel habits Providers: Can Montgomery MD Referring MD: Nelida JOEL Requesting Provider: Medicines: Monitored Anesthesia Care Complications: No immediate complications. Procedure: Pre-Anesthesia Assessment: - The heart rate, respiratory rate, oxygen saturations, blood pressure, adequacy of pulmonary ventilation, and response to care were monitored throughout the procedure. The Colonoscope was introduced through the anus and advanced to the terminal ileum, with identification of the appendiceal orifice and IC valve. The colonoscopy was performed without difficulty. The patient tolerated the procedure well. The quality of the bowel preparation was good. Findings: The perianal and digital rectal examinations were normal. Three sessile polyps were found in the descending colon and cecum. The polyps were diminutive in size. These polyps were removed with a cold snare. Resection and retrieval were complete. Small Internal Hemorrhoids. The exam was otherwise without abnormality on direct and retroflexion views. Impression: - Three diminutive polyps in the descending colon and in the cecum, removed with a cold snare. Resected and retrieved. - Small Internal Hemorrhoids. - The examination was otherwise normal on direct and retroflexion views. Recommendation: - Repeat colonoscopy in 5 years for surveillance. Procedure Code(s): --- Professional --- 13379, Colonoscopy, flexible; with removal of tumor(s), polyp(s), or other lesion(s) by snare technique Diagnosis Code(s): --- Professional --- K63.5, Polyp of colon K92.1, Melena (includes Hematochezia) R19.4, Change in bowel habit CPT copyright 2019 [employer]. All rights reserved. The codes documented in this report are preliminary and upon gateman review may be revised to meet current compliance requirements. Can Montgomery MD Can Montgomery MD 08/07/2020 7:57:16 AM Electronically signed by Can Montgomery MD Number of Addenda: 0 Note Initiated On: 08/07/2020 7:33 AM Estimated Blood Loss: Estimated blood loss: none.
[2020-08-07 08:15] VITALS: BP 139/89
== END 2020-08-07 08:25 | disposition home or self-care (01) ==
LOC: M OPP 06:40
PROVIDERS: ATTEND Internal Medicine Gastroenterology
DX: D12.4 Benign neoplasm of descending colon (principal); D12.0 Benign neoplasm of cecum; K92.1 Melena; R19.4 Change in bowel habit; I48.91 Unspecified atrial fibrillation; E11.9 Type 2 diabetes mellitus without complications; K21.9 Gastro-esophageal reflux disease without esophagitis; Z79.4 Long term (current) use of insulin; Z79.82 Long term (current) use of aspirin; Z79.899 Other long term (current) drug therapy

== ENCOUNTER → 2020-08-12 | Outpatient (REF) | payer OTHER ==
[~2020-08-12] MED LIST changes: -NS 1,000 ML IV ONE
[2020-08-12 19:15] LABS: CHOLESTEROL RISK RATIO 3.181 (<5)
== END ==
LOC: M SFHCPLAZ 14:59
PROVIDERS: ATTEND Physician Assistant Medical
DX: E78.2 Mixed hyperlipidemia (principal)

== ENCOUNTER 2020-09-10 15:44 | Emergency (ER) | payer OTHER ==
[~2020-09-10] VITALS: Ht 182.9 cm; Wt 76.3 kg
[~2020-09-10 15:44] MED LIST changes: +OMEP40CA4 PO; -OMEP40CA97 PO
[2020-09-10] MEDS ORDERED: HYDR10TAB (16:09)
[2020-09-10] MEDS ORDERED: INSU100I9 (16:09)
[2020-09-10] MEDS ORDERED: CHLO125TA (16:09)
[2020-09-10] MEDS ORDERED: SPIR-10 (16:09)
[2020-09-10] MEDS ORDERED: AMLO1TAB24 (16:09)
[2020-09-10] MEDS ORDERED: ERGO500029 (16:09)
--- NOTE | 2020-09-10 16:36 | REP ---
INDICATION: CHEST PAIN COMPARISON: 07/26/2020 TECHNIQUE: Portable AP view of the chest FINDINGS: The mediastinum and cardiac silhouette are stable and within normal limits for portable technique. Loop recorder overlies the left mid lung zone. The lung mariano are clear without acute consolidation, effusion, or pneumothorax. Skeletal structures are intact. IMPRESSION: No acute cardiopulmonary process appreciated. <Electronically signed by Beto Reynolds > 09/10/20 [id number]
[2020-09-10] MEDS ORDERED: INVO100T PO (16:38)
[2020-09-10 16:39] LABS: BASO % 0.8 % (0.0-1.0); EOS # 0.1 10^3/uL (0.0-0.5); EOS % 1.3 % (0.0-3.0); HEMATOCRIT 41.9 % (42.0-52.0); HEMOGLOBIN 14.7 g/dl (13.5-17.5); LYMPH # 2.3 10^3/uL (1.5-5.0); LYMPH % 43.7 % (24.0-44.0); MEAN CORPUSCULAR HGB CONC 35.1 g/dl (32.0-36.5); MEAN CORPUSCULAR VOLUME 88.4 fl (80.0-96.0); MONO # 0.5 10^3/uL (0.0-0.8); MONO % 10.4 % (2.0-8.0); NEUTROPHILS # 2.2 10^3/uL (1.5-8.5); PLATELET COUNT, AUTOMATED 183 10^3/uL (150-450); RED BLOOD COUNT 4.74 10^6/uL (4.30-6.10); WHITE BLOOD COUNT 5.2 10^3/uL (4.0-10.0)
[2020-09-10 17:05] LABS: ALBUMIN 4.1 GM/DL (3.2-5.2); ALT/SGPT 25 U/L (12-78); BILIRUBIN,DIRECT < 0.1 MG/DL (0.0-0.2); BILIRUBIN,TOTAL 0.3 MG/DL (0.2-1.0); BLOOD UREA NITROGEN 23 MG/DL (7-18); CARBON DIOXIDE LEVEL 24 MEQ/L (21-32); CHLORIDE LEVEL 99 MEQ/L (98-107); CK-MB VALUE MASS 1.6 NG/ML (<3.6); CPK CREATINE PHOSPHOKINASE 189 U/L (39-308); CREATININE FOR GFR 1.26 MG/DL (0.70-1.30); GLOMERULAR FILTRATION RATE > 60.0 (>60); GLUCOSE, FASTING 163 MG/DL (70-100); LIPASE 102 U/L (73-393); MB/CK RELATIVE INDEX 0.85 (< OR =4); POTASSIUM SERUM 3.9 MEQ/L (3.5-5.1); SODIUM LEVEL 130 MEQ/L (136-145); TOTAL PROTEIN 8.2 GM/DL (6.4-8.2); TROPONIN I < 0.02 NG/ML (< 0.10)
[2020-09-10] MEDS ORDERED: NS 1,000 ML IV ONE ×2 (17:10)
[2020-09-10] MEDS ORDERED: ONDANSETRON 4MG/2ML VIAL IV ONE (17:25)
[2020-09-10] MEDS ORDERED: IBUPROFEN 600MG TAB PO ONE (18:45)
[2020-09-10 19:45] VITALS: BP 119/78
--- NOTE | 2020-09-11 17:55 | ECGEPIP ---
[facility] - ED Test Date: 2020-09-10 Pat Name: PINKY CANNON Department: Room: - Gender: Male [employer]: LR : 1975 Requested By: SYLVIA Duggan Order Number: [id number] Reading MD: Betzy Granado Measurements Intervals [place] Rate: 93 P: 75 DC: 134 QRS: 69 QRSD: 88 T: 37 QT: 346 QTc: 430 Interpretive Statements Normal sinus rhythm NSTTW abnormalities similar 07/26/20 Electronically Signed on 09-11-2020 17:55:22 EDT by Betzy Granado
== END 2020-09-10 19:56 | disposition home or self-care (01) ==
LOC: M ED 15:44
DX: A08.4 Viral intestinal infection, unspecified (principal); E11.9 Type 2 diabetes mellitus without complications; I10 Essential (primary) hypertension; J44.9 Chronic obstructive pulmonary disease, unspecified; E78.5 Hyperlipidemia, unspecified; Z79.899 Other long term (current) drug therapy; Z79.82 Long term (current) use of aspirin; Z79.4 Long term (current) use of insulin; F17.210 Nicotine dependence, cigarettes, uncomplicated
CPT/HCPCS: 71045; 80048; 80076; 82550; 82553; 83690; 85025; 93005; 93041; 94760; 96361; 96374; 99285; J2405

== ENCOUNTER → 2020-09-22 | Outpatient (REF) | payer OTHER ==
[~2020-09-22] MED LIST changes: +AMLO1TAB24; +CHLO125TA; +ERGO500029; +HYDR10TAB; +INSU100I9; +SPIR-10
== END ==
LOC: M SFHCPLAZ 13:14
PROVIDERS: ATTEND Physician Assistant Medical
DX: J02.9 Acute pharyngitis, unspecified (principal)

== ENCOUNTER 2020-09-29 16:28 | Emergency (ER) | payer OTHER ==
[~2020-09-29] VITALS: Ht 177.8 cm; Wt 77.7 kg
[2020-09-29 16:28] VITALS: BP 144/91
== END 2020-09-29 18:50 | disposition left against medical advice (07) ==
LOC: M ED 16:28
DX: Z53.21 Procedure and treatment not carried out due to patient leaving prior to being seen by health care provider (principal)

== ENCOUNTER 2020-10-04 01:07 | Inpatient (IN) | payer OTHER ==
[~2020-10-04] VITALS: Ht 182.9 cm; Wt 75.9 kg
[~2020-10-04 01:07] MED LIST changes: -AMLO1TAB24; +AMLO1TAB24 PO; -CHLO125TA; -ERGO500029; +ERGO500029 PO; -INSU100I9; +INSU100I9 SC; -SPIR-10
[2020-10-04 01:42] LABS: BASO # 0.1 10^3/uL (0.0-0.2); BASO % 0.4 % (0.0-1.0); EOS % 0.1 % (0.0-3.0); HEMATOCRIT 40.4 % (42.0-52.0); HEMOGLOBIN 13.7 g/dl (13.5-17.5); LYMPH # 3.6 10^3/uL (1.5-5.0); LYMPH % 22.5 % (24.0-44.0); MEAN CORPUSCULAR HGB CONC 33.9 g/dl (32.0-36.5); MEAN CORPUSCULAR VOLUME 91.4 fl (80.0-96.0); MONO # 1.2 10^3/uL (0.0-0.8); MONO % 7.5 % (2.0-8.0); NEUTROPHILS # 10.9 10^3/uL (1.5-8.5); NEUTROPHILS % 68.6 % (36.0-66.0); PLATELET COUNT, AUTOMATED 270 10^3/uL (150-450); RED BLOOD COUNT 4.42 10^6/uL (4.30-6.10); WHITE BLOOD COUNT 15.9 10^3/uL (4.0-10.0)
--- NOTE | 2020-10-04 01:45 | REPVR ---
PROCEDURE INFORMATION: Exam: CT Head Without Contrast Exam date and time: 10/04/2020 1:18 AM Age: 45 years old Clinical indication: Altered mental status/memory loss; Confusion or disorientation TECHNIQUE: Imaging protocol: Computed tomography of the head without contrast. Radiation optimization: All CT scans at this facility use at least one of these dose optimization techniques: automated exposure control; mA and/or kV adjustment per patient size (includes targeted exams where dose is matched to clinical indication); or iterative reconstruction. COMPARISON: MRI-Brain W/O FOLL BY WITH 12/15/2018 8:33 AM FINDINGS: Brain: Normal. No hemorrhage. Unremarkable white matter. No mass effect. Cerebral ventricles: No ventriculomegaly. Paranasal sinuses: Visualized sinuses are unremarkable. No fluid levels. Mastoid air cells: Visualized mastoid air cells are well aerated. Bones/joints: Unremarkable. No acute fracture. Soft tissues: Unremarkable. IMPRESSION: Negative noncontrast head CT. Electronically signed by: Sushant Mesa On 10/04/2020 01:45:09 AM
--- NOTE | 2020-10-04 02:25 | REPVR ---
PROCEDURE INFORMATION: Exam: XR Chest Exam date and time: 10/04/2020 2:12 AM Age: 45 years old Clinical indication: Other: Altered mental status TECHNIQUE: Imaging protocol: XR of the chest. Views: 1 view. COMPARISON: CR PORTABLE CHEST X-RAY 09/10/2020 4:18 PM FINDINGS: Tubes, catheters and devices: A loop recorder is noted over the left chest. Lungs: The lungs are unchanged. There are no interval infiltrates. Pleural spaces: Unremarkable. No pleural effusion. No pneumothorax. Heart/Mediastinum: The heart and mediastinum are unchanged. Bones/joints: Unremarkable. IMPRESSION: Stable negative chest since 09/10/2020. Electronically signed by: Sushant Mesa On 10/04/2020 02:25:21 AM
--- NOTE | 2020-10-04 02:50 | REPVR ---
PROCEDURE INFORMATION: Exam: US Duplex Right Lower Extremity Veins, Limited Exam date and time: 10/04/2020 2:42 AM Age: 45 years old Clinical indication: Pain; Leg, upper; Right; Additional info: Rle pain R/O dvt TECHNIQUE: Imaging protocol: Real-time Duplex ultrasound of the Right Lower Extremity with 2-D landry scale, color Doppler flow and spectral waveform analysis with image documentation. Limited exam was focused on the right lower extremity veins. COMPARISON: US UNI LOW EXTREM ARTERIAL LIMIT 09/17/2019 1:01 PM FINDINGS: Right deep veins: Unremarkable. The common femoral, femoral, proximal profunda femoral and popliteal veins are patent without thrombus. Normal Doppler waveforms. Normal compressibility and/or augmentation response. Right superficial veins: Unremarkable. Saphenofemoral junction is patent without thrombus. Soft tissues: Unremarkable. IMPRESSION: Negative right lower extremity venous duplex exam without evidence of deep venous thrombosis. Electronically signed by: Sushant Mesa On 10/04/2020 02:49:34 AM
--- NOTE | 2020-10-04 03:31 | REPVR ---
PROCEDURE INFORMATION: Exam: XR Right Hip Exam date and time: 10/04/2020 3:19 AM Age: 45 years old Clinical indication: Other: Trauma TECHNIQUE: Imaging protocol: XR Right hip. Views: 2 or 3 views hip with pelvis when performed. COMPARISON: CT ABD/PEL W/IV CONTRAST ONLY 07/31/2019 8:47 PM FINDINGS: Bones/joints: Unremarkable. No acute fracture. Soft tissues: Unremarkable. IMPRESSION: Negative right hip and pelvis. Electronically signed by: Sushant Mesa On 10/04/2020 03:30:24 AM
--- NOTE | 2020-10-04 03:31 | REPVR ---
PROCEDURE INFORMATION: Exam: XR Right Femur Exam date and time: 10/04/2020 3:19 AM Age: 45 years old Clinical indication: Other: Trauma TECHNIQUE: Imaging protocol: XR Right femur. Views: 2 views. COMPARISON: US UNI LOW EXTREM ARTERIAL LIMIT 09/17/2019 1:01 PM FINDINGS: Bones/joints: Unremarkable. No acute fracture. Soft tissues: Unremarkable. IMPRESSION: Negative right femur. Electronically signed by: Sushant Mesa On 10/04/2020 03:31:04 AM
[2020-10-04 03:35] LABS: ACETAMINOPHEN LEVEL < 2.0 UG/ML (10.0-30.0); ALBUMIN 4.7 GM/DL (3.2-5.2); ALT/SGPT 26 U/L (12-78); BILIRUBIN,DIRECT < 0.1 MG/DL (0.0-0.2); BILIRUBIN,TOTAL 0.3 MG/DL (0.2-1.0); BLOOD UREA NITROGEN 33 MG/DL (7-18); CALCIUM LEVEL 9.9 MG/DL (8.5-10.1); CARBON DIOXIDE LEVEL 23 MEQ/L (21-32); CHLORIDE LEVEL 94 MEQ/L (98-107); CK-MB VALUE MASS < 1.0 NG/ML (<3.6); CPK CREATINE PHOSPHOKINASE 78 U/L (39-308); ETHYL ALCOHOL (ETHANOL) < 0.003 % (0.000-0.010); GLOMERULAR FILTRATION RATE 44.5 (>60); GLUCOSE, FASTING 250 MG/DL (70-100); MB/CK RELATIVE INDEX 1.28 (< OR =4); POTASSIUM SERUM 4.1 MEQ/L (3.5-5.1); SALICYLATE LEVEL 5.7 MG/DL (5.0-30.0); SODIUM LEVEL 132 MEQ/L (136-145); TROPONIN I < 0.02 NG/ML (< 0.10)
[2020-10-04] MEDS: NS 1,000 ML IV SCH ×5 (04:27→18:33)
[2020-10-04 04:39] LABS: AMPHETAMINES LEVEL URINE NEGATIVE (NEGATIVE); BARBITURATES URINE NEGATIVE (NEGATIVE); BENZODIAZEPINES URINE NEGATIVE (NEGATIVE); CANNABINOIDS URINE POSITIVE (NEGATIVE); COCAINE METABOLITE URINE NEGATIVE (NEGATIVE); METHADONE URINE NEGATIVE (NEGATIVE); OPIATES URINE NEGATIVE (NEGATIVE); PHENCYCLIDINE URINE NEGATIVE (NEGATIVE)
[2020-10-04] MEDS ORDERED: DEXTROSE 50% 50 ML SYRINGE IV PRN (05:10)
[2020-10-04] MEDS ORDERED: NS 1,000 ML IV SCH (05:10)
[2020-10-04] MEDS ORDERED: GLUCOSE 4GM CHEW TABLET PO PRN (05:10)
[2020-10-04] MEDS ORDERED: GLUCAGON INJ 1MG VIAL SC PRN (05:10)
[2020-10-04] MEDS ORDERED: LEVA45AE INH (05:33)
[2020-10-04] MEDS ORDERED: IRBE300T7 PO (05:40)
[2020-10-04] MEDS ORDERED: PRED10TA2 PO (05:40)
[2020-10-04] MEDS ORDERED: CELE1CAP9 PO (05:40)
[2020-10-04 05:59] LABS: RSV AMPLIFICATION NEGATIVE (NEGATIVE)
[2020-10-04] MEDS ORDERED: LEVALBUTEROL HFA 45MCG/ACT 15 GM INHALER INH PRN (06:00)
[2020-10-04] MEDS ORDERED: NS 500 ML IV ONE (06:05)
[2020-10-04] MEDS ORDERED: PERCOCET 5MG/325MG TAB PO PRN (06:05)
[2020-10-04] MEDS ORDERED: MORPHINE 4 MG/ML 1ML VIAL/SYRINGE (J2270) IV PRN (06:05)
[2020-10-04] MEDS ORDERED: PERCOCET 5MG/325MG TAB PO ONE (06:15)
[2020-10-04] MEDS ORDERED: MORPHINE 4 MG/ML 1ML VIAL/SYRINGE (J2270) IV ONE (06:15)
--- NOTE | 2020-10-04 06:31 | HPEPDOC ---
[facility] Medical History & Physical Date of Admission Oct 04, 2020 Date of Service: Oct 04, 2020 History and Physical CHIEF COMPLAINT: "My right foot is cold. I have pain on my right thigh and down my leg ." HISTORY OF PRESENT ILLNESS: 45-year-old -Bulgarian male with history of COPD not oxygen or steroid dependent, still actively smoking cigarettes 1 pack of cigarettes every 3 days, follows with pulmonary associates, obstructive sleep apnea with nocturnal PAP, type 1 diabetes, hypertension dyslipidemia presented to emergency room with 2- week history of worsening right lateral thigh pain and radiating from his back to his leg with numbness and tingling sensation "as if you had a rubber band around your skin, and your skin gets numb." Patient complains of difficulty ambulating and has been using a cane and 1 person assistance to get around. x- ray of the right hip has no osteoarthritis. He denies any saddle anesthesia urine incontinence or retention constipation but admits to occasional bowel incontinence which is new. He has noted that his right foot is colder than the left foot but has not noticed any bluish or purplish discoloration of his right foot. Patient was seen by his primary care physician who had given him some prednisone without relief. He denies any fever chills redness swelling of his right leg. He denies nonsteroidal anti-inflammatory use for pain, denies diarrhea or decrease in oral fluid intake, and presents to the ER for further evaluation. In the ER he was found to have leukocytosis with white count of 15.9 but is taking prednisone which his primary care had given him, creatinine of 2.12 from baseline of 1.26. CT of the head for CVA is negative, venous Dopplers negative for DVT of bilateral lower extremities, x-ray of the femur and pelvis are negative for osteoarthritis or avascular necrosis of the right head of the femur. Patient's hemoglobin is normal and no family history of sickle cell trait SC disease or sickle cell anemia. PAST MEDICAL HISTORY: Coronavirus 19+ in March 2020 status post antibiotic infusion, type 1 diabetes, COPD, obstructive sleep apnea with nocturnal PAP, hypertension, dyslipidemia, depression, gastroesophageal reflux disease, migraine, loop recorder due to irregular fast rhythm of the heart February 2017, dental surgery 2 teeth pulled. 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 REVIEW OF SYSTEMS: 10 point review of systems negative aside from positive findings on history of present illness HOME MEDICATIONS: Please see below. PHYSICAL EXAMINATION: VITAL SIGNS: See below GENERAL APPEARANCE: No distress speaks in full sentences awake alert oriented to person place and time no cyanosis no pallor HEENT: Face is symmetric no JVD thyromegaly or cervical lymphadenopathy dry mucous membranes CARDIOVASCULAR: S1-S2 regular rate rhythm LUNGS: Clear to auscultation bilaterally air entry is equal no adventitious breath sounds ABDOMEN: Soft nontender nondistended positive bowel sounds no rebound or guarding no CVA tenderness bilaterally MUSCULOSKELETAL: Diminished sensation along the rapid right lateral thigh no point tenderness at L2-L5 EXTREMITIES: No cyanosis clubbing or pitting edema. Right foot plantar aspect is cool to touch diminished pulse on the right dorsalis pedis. Dorsalis pedis posterior tibialis 2+ in the left lower extremity NEUROLOGICAL: Motor function is 5 out of 5 x 4 extremities face is symmetric tongue is midline no pronator drift negative Babinski bilaterally LABORATORY DATA: See below. IMAGING: See below MICROBIOLOGY: Please see below. ASSESSMENT: 45-year-old -Bulgarian male with type 1 diabetes hypertension actively smoking cigarettes COPD obstructive sleep apnea on nocturnal PAP hypertension dyslipidemia gastroesophageal reflux disease depression presents with 2-week history of worsening paresthesias and numbness of the right thigh going into the right leg patient also complains of back pain with radiation down the right leg he denies any fever chills. He was given prednisone by his primary care physician now presents to the emergency room with worsening pain difficulty ambulating with white count of 15.9 thousand and acute kidney injury with creatinine of 2.12 from baseline of 1.26. Patient will be admitted as an inpatient for 2 midnights for the following acute issues. Right lower extremity peripheral arterial disease with diminished pulses in the setting of active smoking -Arterial Dopplers ordered -Morning team to contact vascular surgery for consult Acute kidney injury -Holding patient's diuretics chlorthalidone spironolactone and irbesartan for now until kidney function returns to baseline -Strict I's and O's Daily weights avoid nephrotoxins and renally dose all medications -Trial of IV fluids obtain renal ultrasound of the kidneys. Leukocytosis most likely due to prednisone -Monitor ESR CRP and further symptoms. Type 1 diabetes -On Levemir consistent carbohydrate diet sliding scale per [facility] protocol -Check A1c and fasting lipid profile ANALILIA on nocturnal PAP -Resume home nocturnal PAP COPD, compensated Resume home bronchodilators and maintenance therapy Dyslipidemia -Check the lipid profile Migraines -Renally dose all medications avoid nonsteroidal anti-inflammatory medications Gastroesophageal reflux disease -On PPI Hypertension -Patient's diuretics and BROOK inhibitors ARB have been discontinued due to acute kidney injury with renal dysfunction creatinine of 2.12 Active tobacco abuse still smoking cigarettes -Tobacco cessation counseling - nicotine gum as needed -Nicotine patch Diet consistent carbohydrate renal diet DVT prophylaxis compression stockings CODE STATUS full code Vital Signs Vital Signs Date Time Temp Pulse Resp B/P (MAP) Pulse Ox O2 Delivery O2 Flow Rate FiO2 10/04/20 03:52 80 98 10/04/20 03:46 119/81 (94) 10/04/20 02:08 97.1 10/04/20 01:36 20 10/04/20 01:08 Room Air Laboratory Data Labs 24H Laboratory Tests 2 10/04/20 01:32: Immature Granulocyte % (Auto) 0.9, Neutrophils (%) (Auto) 68.6H, Lymphocytes (%) (Auto) 22.5L, Monocytes (%) (Auto) 7.5, Eosinophils (%) (Auto) 0.1, Basophils (%) (Auto) 0.4, Neutrophils # (Auto) 10.9H, Lymphocytes # (Auto) 3.6, Monocytes # (Auto) 1.2H, Eosinophils # (Auto) 0.0, Basophils # (Auto) 0.1, Nucleated Red Blood Cells % (auto) 0.0, Ammonia 32 10/04/20 02:07: Anion Gap 15, Glomerular Filtration Rate 44.5L, Calcium Level 9.9, Total Bilirubin 0.3, Direct Bilirubin < 0.1, Aspartate Amino Transf (AST/SGOT) 8, Alanine Aminotransferase (ALT/SGPT) 26, Alkaline Phosphatase 62, Total Creatine Kinase 78, Creatine Kinase MB < 1.0, Creatine Kinase MB Relative Index 1.28, Troponin I < 0.02, Total Protein 9.0H, Albumin 4.7, Albumin/Globulin Ratio 1.1, Thyroid Stimulating Hormone (TSH) 0.580, Salicylates Level 5.7, Acetaminophen Level < 2.0L, Ethyl Alcohol Level < 0.003 10/04/20 04:03: Urine Color YELLOW, Urine Appearance CLEAR, Urine pH 5.0, Urine Specific [place] 1.020, Urine Protein NEGATIVE, Urine Glucose (UA) 3+H, Urine Ketones NEGATIVE, Urine Blood NEGATIVE, Urine Nitrite NEGATIVE, Urine Bilirubin NEGATIVE, Urine Urobilinogen 0.2, Urine Leukocyte Esterase NEGATIVE, Urine WBC (Auto) 1, Urine RBC (Auto) 0, Urine Hyaline Casts (Auto) 0, Urine Bacteria (Auto) NEGATIVE, Urine Squamous Epithelial Cells 0, Urine Sperm (Auto) , Urine Opiates Screen NEGATIVE, Urine Methadone Screen NEGATIVE, Urine Barbiturates Screen NEGATIVE, Urine Phencyclidine Screen NEGATIVE, Urine Amphetamines Screen NEGATIVE, Urine Benzodiazepines Screen NEGATIVE, Urine Cocaine Metabolite Screen NEGATIVE, Urine Cannabinoids Screen POSITIVEH 10/04/20 05:12: Coronavirus (COVID-19)(PCR) NEGATIVE, Influenza Type A (RT-PCR) NEGATIVE, Influenza Type B (RT-PCR) NEGATIVE, Respiratory Syncytial Virus (PCR) NEGATIVE CBC/BMP Laboratory Tests 10/04/20 01:32 10/04/20 02:07 Home Medications Scheduled Amlodipine Besylate (Amlodipine Besylate) 5 Mg Tablet, 5 MG PO DAILY Aspirin (Aspirin) 81 Mg Chw, 81 MG PO DAILY Atenolol (Atenolol) 100 Mg Tablet, 100 MG PO DAILY Atorvastatin Calcium (Atorvastatin Calcium) 40 Mg Tablet, 40 MG PO QHS Canagliflozin (Invokana) 100 Mg Tablet, 100 MG PO DAILY Celecoxib (Celecoxib) 200 Mg Capsule, 200 MG PO BID Chlorthalidone (Chlorthalidone) 25 Mg Tablet, 25 MG PO DAILY Ergocalciferol (Vitamin D2) (Vitamin D2) 50,000 Units Cap, 50,000 UNITS PO Q2WK Fluticasone/Umeclidin/Vilanter (Trelegy Ellipta 100-62.5-25) 1 Each Blst.w.dev, 1 PUFF PO DAILY Insulin Glargine,Hum.rec.anlog (Basaglar Kwikpen U-100) 100 Unit/1 Ml Insuln.pen, 60 UNIT SC QHS Insulin Lispro (Insulin Lispro Kwikpen U-100) 100 Unit/1 Ml Insuln.pen, 1 DOSE SC QID BEFORE MEALS AND AT BEDTIME PER SLIDING SCALE Irbesartan (Irbesartan) 300 Mg Tablet, 300 MG PO QHS Prednisone (Prednisone) 10 Mg Tablet, 30 MG PO DAILY STARTED 10/01/20 X 7 DAYS Spironolactone (Spironolactone) 25 Mg Tablet, 25 MG PO BID Trazodone HCl (Trazodone HCl) 50 Mg Tab, 50 MG PO QHS Scheduled PRN Dextrose (Glucose) 4 Gm Chw, 4 GM PO PRN PRN for LOW BLOOD SUGAR Ibuprofen (Ibuprofen) 400 Mg Tablet, 400 MG PO BID PRN for MIGRAINE Levalbuterol Tartrate (Levalbuterol Tartrate Hfa) 15 Gm Hfa.aer.ad, 1 PUFF INH Q4H PRN for SHORTNESS OF BREATH Allergies Coded Allergies: No Known Allergies (Unverified , 08/04/20) A-FIB/CHADSVASC A-FIB History Current/History of A-Fib/PAF?: No Current PO Anticoag Therapy: No Age/Risk Factor Scoring CHADSVASC: CHADSVASC Response (Comments) Value Age Risk Factor Age < 65 years old 0 Gender Risk Factor Male 0 Hx of CHF No 0 Hx of HTN Yes 1 Hx of Stroke/TIA/or VTE No 0 Hx of Diabetes Yes 1 Hx of Vascular Disease Yes 1 Total 3 Treatment Treatment ordered: NONE YOMI MICHEL MD Oct 04, 2020 06:30
[2020-10-04] MEDS ORDERED: NICOTINE POLACRILEX 2 MG GUM PO PRN (06:35)
[2020-10-04 07:14] LABS: C REACTIVE PROTEIN QUANTITATIV < 0.30 MG/DL (0.00-0.30); CHOLESTEROL LEVEL 200 MG/DL (<200); CHOLESTEROL RISK RATIO 3.636 (<5); HDL CHOLESTEROL 55 MG/DL (>40); LDL CHOLESTEROL 107 MG/DL (<100); NON-HDL-C 145 MG/DL; TRIGLYCERIDES LEVEL 190 MG/DL (<150)
[2020-10-04 08:00] VITALS: BP 129/112
[2020-10-04 08:02] LABS: ERYTHROCYTE SEDIMENTATION RATE 46 mm/hr (0-15)
--- NOTE | 2020-10-04 08:06 | REPVR ---
PROCEDURE INFORMATION: Exam: US Retroperitoneal Limited, Kidneys Exam date and time: 10/04/2020 6:32 AM Age: 45 years old Clinical indication: Abnormal findings; Abnormal lab test; Abnormal kidney function lab tests; Additional info: Renal failure TECHNIQUE: Imaging protocol: Real-time ultrasound of the retroperitoneum with image documentation. Examination was focused on the kidneys. COMPARISON: CT ABD/PEL W/IV CONTRAST ONLY 07/31/2019 8:47 PM FINDINGS: Right kidney: Right kidney measures 10.5 cm in length. No renal mass, calculus, or hydronephrosis. Left kidney: Left kidney measures 11.8 cm in length. No renal mass, calculus, or hydronephrosis. Bladder: Nondistended bladder Liver: Fatty infiltration of the incompletely visualized liver. IMPRESSION: No acute sonographic abnormality in the visualized kidneys and collecting systems. Electronically signed by: Thai Lira On 10/04/2020 08:05:52 AM
[2020-10-04 08:42] LABS: HEMOGLOBIN A1c 9.8 %
[2020-10-04] MEDS: ASPIRIN 81 MG CHEW TABLET PO SCH (09:44)
[2020-10-04] MEDS: LEVEMIR (INSULIN DETEMIR) 1 UNITS/0.01ML SC SCH ×2 (09:45→20:51)
[2020-10-04] MEDS: NICOTINE 14 MG/24 HR TRANSDERMAL TD SCH (09:46)
[2020-10-04] MEDS: HumaLOG INSULIN (NovoLOG) PER UNIT SC SCH ×4 (09:55→20:18)
--- NOTE | 2020-10-04 12:15 | CR.PDOC ---
General Date of Consultation: Oct 04, 2020 Consultation REASON FOR CONSULTATION/CHIEF COMPLAINT: Right leg and foot numbness and pain. HISTORY OF PRESENT ILLNESS: 41-year-old -Chinese male presented to the ED with worsening right leg pain and numbness as well as 1 week history of foot pain and numbness. Patient states right foot felt cold yesterday which was new. Patient has also had physical therapy on right leg and states problems with right leg and thigh have been ongoing for approximately 2 to 3 months. As per H&P: "2-week history of worsening right lateral thigh pain and radiating from his back to his leg with numbness and tingling sensation "as if you had a rubber band around your skin, and your skin gets numb." Patient complains of difficulty ambulating and has been using a cane and 1 person assistance to get around. x-ray of the right hip has no osteoarthritis. He denies any saddle anesthesia urine incontinence or retention constipation but admits to occasional bowel incontinence which is new. He has noted that his right foot is colder than the left foot but has not noticed any bluish or purplish discoloration of his right foot. Patient was seen by his primary care physician who had given him some prednisone without relief. He denies any fever chills redness swelling of his right leg. He denies nonsteroidal anti-inflammatory use for pain, denies diarrhea or decrease in oral fluid intake, and presents to the ER for further evaluation. In the ER he was found to have leukocytosis with white count of 15.9 but is taking prednisone which his primary care had given him, creatinine of 2.12 from baseline of 1.26. CT of the head for CVA is negative, venous Dopplers negative for DVT of bilateral lower extremities, x-ray of the femur and pelvis are negative for osteoarthritis or avascular necrosis of the right head of the femur. Patient's hemoglobin is normal and no family history of sickle cell trait SC disease or sickle cell anemia." ALLERGIES: Please see below. HOME MEDICATIONS: Please see below. PAST MEDICAL HISTORY: 1. Diabetes type I. 2. Hypertension 3. Irregular heart rhythm 4. Dyslipidemia 5. COPD 6. Obstructive sleep apnea 7. GERD 8. Covid-19 + Mar 2020 PAST SURGICAL HISTORY: 1. Dental extraction FAMILY HISTORY: see H&P SOCIAL HISTORY: see H&P REVIEW OF SYSTEMS: All negative except as listed in HPI. PHYSICAL EXAMINATION: VITAL SIGNS: Please see below. GENERAL APPEARANCE: NAD HEENT: wnl, no LAD RESPIRATORY: cta b/l, no r/r/w CARDIOVASCULAR: s1 & s2 ABDOMEN: soft, nd, nt, +bs EXTREMITIES: left leg warm, 2+ pedal pulses, no discoloration. right foot cool to touch, monophasic dp/pt/pop signals, decreased sensation on dorsal foot, plantar foot is normal, decreased motion to toes and at ankle NEUROLOGICAL: FROM and deficit described in Extremities PSYCHIATRIC: calm LABORATORY DATA: Please see below. ASSESSMENT/PLAN: 45-year-old male with new onset of right cool foot 1 week history of foot numbness 2 to 3 weeks of right leg numbness and tingling sensation. Patient with possible subacute on chronic arterial occlusion recommend CTA of aorta with bilateral runoff will follow up of arterial duplex. Recommend heparin drip with bolus. Will continue to follow. Vital Signs/I&O Vital Signs Date Time Temp Pulse Resp B/P (MAP) Pulse Ox O2 Delivery O2 Flow Rate FiO2 10/04/20 08:00 97.8 83 18 129/112 (118) 97 Room Air I&O- Last 24 Hours up to 6 AM 10/04/20 06:00 Intake Total 200 ml Balance 200 ml Laboratory Data Labs 24H Laboratory Tests 2 10/04/20 01:32: Immature Granulocyte % (Auto) 0.9, Neutrophils (%) (Auto) 68.6H, Lymphocytes (%) (Auto) 22.5L, Monocytes (%) (Auto) 7.5, Eosinophils (%) (Auto) 0.1, Basophils (%) (Auto) 0.4, Neutrophils # (Auto) 10.9H, Lymphocytes # (Auto) 3.6, Monocytes # (Auto) 1.2H, Eosinophils # (Auto) 0.0, Basophils # (Auto) 0.1, Nucleated Red Blood Cells % (auto) 0.0, Erythrocyte Sedimentation Rate 46H, Ammonia 32 10/04/20 02:07: Anion Gap 15, Glomerular Filtration Rate 44.5L, Estimated Mean Plasma Glucose 235H, Hemoglobin A1c 9.8, Calcium Level 9.9, Total Bilirubin 0.3, Direct Bilirubin < 0.1, Aspartate Amino Transf (AST/SGOT) 8, Alanine Aminotransferase (ALT/SGPT) 26, Alkaline Phosphatase 62, Total Creatine Kinase 78, Creatine Kinas e MB < 1.0, Creatine Kinase MB Relative Index 1.28, Troponin I < 0.02, C- Reactive Protein, Quantitative < 0.30, Total Protein 9.0H, Albumin 4.7, Albumin/Globulin Ratio 1.1, Triglycerides Level 190H, Total Cholesterol 200, LDL Cholesterol 107H, Non-HDL Cholesterol (LDL + VLDL) 145, Total HDL Cholesterol 55, Cholesterol/HDL Ratio 3.636, Thyroid Stimulating Hormone (TSH) 0.580, Salicylates Level 5.7, Acetaminophen Level < 2.0L, Ethyl Alcohol Level < 0.003 10/04/20 04:03: Urine Color YELLOW, Urine Appearance CLEAR, Urine pH 5.0, Urine Specific [place] 1.020, Urine Protein NEGATIVE, Urine Glucose (UA) 3+H, Urine Ketones NEGATIVE, Urine Blood NEGATIVE, Urine Nitrite NEGATIVE, Urine Bilirubin NEGATIVE, Urine Urobilinogen 0.2, Urine Leukocyte Esterase NEGATIVE, Urine WBC (Auto) 1, Urine RBC (Auto) 0, Urine Hyaline Casts (Auto) 0, Urine Bacteria (Auto) NEGATIVE, Urine Squamous Epithelial Cells 0, Urine Sperm (Auto) , Urine Opiates Screen NEGATIVE, Urine Methadone Screen NEGATIVE, Urine Barbiturates Screen NEGATIVE, Urine Phencyclidine Screen NEGATIVE, Urine Amphetamines Screen NEGATIVE, Urine Benzodiazepines Screen NEGATIVE, Urine Cocaine Metabolite Screen NEGATIVE, Urine Cannabinoids Screen POSITIVEH 10/04/20 05:12: Coronavirus (COVID-19)(PCR) NEGATIVE, Influenza Type A (RT-PCR) NEGATIVE, Influenza Type B (RT-PCR) NEGATIVE, Respiratory Syncytial Virus (PCR) NEGATIVE 10/04/20 07:58: Bedside Glucose (Misc Panel) 223H 10/04/20 11:43: Bedside Glucose (Misc Panel) 365H CBC/BMP Laboratory Tests 10/04/20 01:32 10/04/20 02:07 Allergies Coded Allergies: No Known Allergies (Unverified , 08/04/20) Home Medications Scheduled Amlodipine Besylate (Amlodipine Besylate) 5 Mg Tablet, 5 MG PO DAILY, (Reported) Aspirin (Aspirin) 81 Mg Chw, 81 MG PO DAILY, (Reported) Atenolol (Atenolol) 100 Mg Tablet, 100 MG PO DAILY, (Reported) Atorvastatin Calcium (Atorvastatin Calcium) 40 Mg Tablet, 40 MG PO QHS, (Reported) Canagliflozin (Invokana) 100 Mg Tablet, 100 MG PO DAILY, (Reported) Celecoxib (Celecoxib) 200 Mg Capsule, 200 MG PO BID, (Reported) Chlorthalidone (Chlorthalidone) 25 Mg Tablet, 25 MG PO DAILY, (Reported) Ergocalciferol (Vitamin D2) (Vitamin D2) 50,000 Units Cap, 50,000 UNITS PO Q2WK, (Reported) Fluticasone/Umeclidin/Vilanter (Trelegy Ellipta 100-62.5-25) 1 Each Blst.w.dev, 1 PUFF PO DAILY, (Reported) Insulin Glargine,Hum.rec.anlog (Basaglar Kwikpen U-100) 100 Unit/1 Ml Insuln.pen, 60 UNIT SC QHS, (Reported) Insulin Lispro (Insulin Lispro Kwikpen U-100) 100 Unit/1 Ml Insuln.pen, 1 DOSE SC QID, (Reported) BEFORE MEALS AND AT BEDTIME PER SLIDING SCALE Irbesartan (Irbesartan) 300 Mg Tablet, 300 MG PO QHS, (Reported) Prednisone (Prednisone) 10 Mg Tablet, 30 MG PO DAILY, (Reported) STARTED 10/01/20 X 7 DAYS Spironolactone (Spironolactone) 25 Mg Tablet, 25 MG PO BID, (Reported) Trazodone HCl (Trazodone HCl) 50 Mg Tab, 50 MG PO QHS, (Reported) Scheduled PRN Dextrose (Glucose) 4 Gm Chw, 4 GM PO PRN PRN for LOW BLOOD SUGAR, (Reported) Ibuprofen (Ibuprofen) 400 Mg Tablet, 400 MG PO BID PRN for MIGRAINE, (Reported) Levalbuterol Tartrate (Levalbuterol Tartrate Hfa) 15 Gm Hfa.aer.ad, 1 PUFF INH Q4H PRN for SHORTNESS OF BREATH, (Reported) SHADY LOOC MD Oct 04, 2020 12:15
[2020-10-04] MEDS ORDERED: HEPARIN SOD (PORCINE) 5000UNITS/ML 1ML VIAL/SYRINGE IV PRN (12:35)
[2020-10-04] MEDS ORDERED: HEPARIN SOD (PORCINE) 5000UNITS/ML 1ML VIAL/SYRINGE IV ONE (12:35)
--- NOTE | 2020-10-04 12:41 | IPNPDOC ---
Text Note Date of Service The patient was seen on 10/04/20. NOTE Subjective: Patient continues to complain of cold sensation of his right foot, paresthesias of distal part of the right leg Objective: GENERAL APPEARANCE: NAD HEENT: no scleral icterus, no JVD, EOMI CARDIOVASCULAR: S1S2 LUNGS: CTA ABDOMEN: soft & not tender w palpation MUSCULOSKELETAL: Right foot cold, no palpable pulsations present, DTR +2 INTEGUMENT: no generalized pallor NEUROLOGICAL: cranial nerve function from 2-12 intact i, follows commands, speech not dysarthric Assessment /plan Patient is 45 years old male with past medical history of COPD not oxygen or steroid dependent, still actively smoking cigarettes 1 pack of cigarettes every 3 days, follows with pulmonary associates, obstructive sleep apnea with nocturnal PAP, type 1 diabetes, hypertension dyslipidemia presented to emergency room with 2-week history of worsening right lateral thigh pain and right foot pain. Right foot pain/PVD There is concern for possible arterial occlusion Await arterial Doppler ultrasound Vascular surgical team recommended to start heparin drip with bolus. N.p.o. for now ALYSHA Most likely secondary to medication side effect and dehydration irbesartan, chlorthalidone, spironolactone on hold IV fluid Type 1 diabetes Poorly controlled diabetes with HbA1c 9.8 Insulin sliding scale Detemir twice daily ANALILIA on nocturnal PAP -Resume home nocturnal CPAP Hyperlipidemia Continue atorvastatin GERD PPI Hypertension Blood pressure currently under control Blood pressure medication on hold due to acute kidney injury Active tobacco abuse still smoking cigarettes -Tobacco cessation counseling -Nicotine patch VS,Fishbone, I+O VS, Fishbone, I+O Laboratory Tests 10/04/20 01:32 10/04/20 02:07 Vital Signs Date Time Temp Pulse Resp B/P (MAP) Pulse Ox O2 Delivery O2 Flow Rate FiO2 10/04/20 08:00 97.8 83 18 129/112 (118) 97 Room Air I&O- Last 24 Hours up to 6 AM 10/04/20 06:00 Intake Total 200 ml Balance 200 ml HENRI MARTINEZ DO Oct 04, 2020 12:41
[2020-10-04 14:00] VITALS: BP 141/88
[2020-10-04] MEDS: amLODIPine 5 MG TAB PO SCH (15:19)
[2020-10-04] MEDS: predniSONE 10 MG TAB PO SCH (15:20)
[2020-10-04] MEDS: atenoloL 50 MG TAB PO SCH (15:20)
[2020-10-04] MEDS: HEPARIN DRIP 25,000 UNITS in IV 1 EA IV SCH (15:39)
[2020-10-04 19:26] LABS: BLOOD UREA NITROGEN 26 MG/DL (7-18); CALCIUM LEVEL 8.7 MG/DL (8.5-10.1); CARBON DIOXIDE LEVEL 26 MEQ/L (21-32); CHLORIDE LEVEL 100 MEQ/L (98-107); CREATININE FOR GFR 1.28 MG/DL (0.70-1.30); GLOMERULAR FILTRATION RATE > 60.0 (>60); GLUCOSE, FASTING 158 MG/DL (70-100); POTASSIUM SERUM 4.6 MEQ/L (3.5-5.1); SODIUM LEVEL 133 MEQ/L (136-145)
[2020-10-04] MEDS ORDERED: ISOVUE-370 76% 100ML VIAL As Ordered ONE (20:07)
[2020-10-04] MEDS: ATORVASTATIN 20 MG TAB PO SCH (20:59)
[2020-10-04] MEDS: traZODone 50 MG TAB PO SCH (20:59)
[2020-10-04] MEDS: PERCOCET 5MG/325MG TAB PO PRN (21:00)
[2020-10-04] MEDS ORDERED: LEVEMIR (INSULIN DETEMIR) 1 UNITS/0.01ML SC ONE (21:00)
[2020-10-04] MEDS ORDERED: IRBESARTAN 150MG TAB PO SCH (21:00)
[2020-10-04] MEDS ORDERED: HumaLOG INSULIN (NovoLOG) PER UNIT SC SCH (21:00)
--- NOTE | 2020-10-04 21:14 | REPVR ---
PROCEDURE INFORMATION: Exam: CTA Angiogram of the Abdominal Aorta and Bilateral Lower Extremities (Run-off) With IV Contrast Exam date and time: 10/04/2020 8:10 PM Age: 45 years old Clinical indication: Other: Runoff R/O arterial occlusion TECHNIQUE: Imaging protocol: CT angiogram of the abdominal aorta, pelvis and bilateral lower extremities with IV iodinated contrast. 3D rendering (Not supervised by radiologist): MIP and/or 3D reconstructed images were created by the technologist. Radiation optimization: All CT scans at this facility use at least one of these dose optimization techniques: automated exposure control; mA and/or kV adjustment per patient size (includes targeted exams where dose is matched to clinical indication); or iterative reconstruction. Contrast material: ISOVUE 370; Contrast volume: 100 ml; Contrast route: INTRAVENOUS (IV); COMPARISON: CT ABD/PEL W/IV CONTRAST ONLY 07/31/2019 8:47 PM FINDINGS: Aorta: There is mild calcification of the abdominal aorta with extension into the iliac arteries. Celiac trunk and mesenteric arteries: There is downward hook of the proximal celiac artery with mild proximal stenosis suggesting a median arcuate ligament. The SMA and branches appear normal. The CARMELO is patent. Renal arteries: Single patent bilateral renal arteries. Right iliac arteries: There is atherosclerotic irregularity of the right common iliac artery with stenosis of 30% or less. There is moderate proximal stenosis of the right internal iliac artery. There is occlusion of the right external iliac artery proximally. Right femoral/popliteal arteries: There is reconstitution of the right common femoral artery apparently through hypogastric branches. The right profunda artery and branches appear normal. The right superficial femoral artery is asymmetric early smaller but patent. The right popliteal artery is patent. Right infrapopliteal arteries: In the right calf, the anterior tibial, posterior tibial and peroneal arteries are patent although the peroneal artery appears to be the largest. There is fading of contrast at L3 vessels toward the distal calf consistent with scanning ahead of the bolus. Left iliac arteries: The left common iliac and external iliac arteries are patent atherosclerotic irregularity. There is occlusion the proximal left internal iliac artery with reconstitution a short distance later from the origin. Left femoral/popliteal arteries: The left common femoral artery is patent. The left profunda artery and branches appear normal. The left superficial femoral artery is patent. The left popliteal artery is patent. Left infrapopliteal arteries: In the left calf, the posterior tibial, anterior tibial and peroneal arteries are patent with the dominant vessel apparently the peroneal artery. There is fading of all 3 vessels toward the distal calf consistent with scanning ahead of the bolus. Liver: The liver attenuation is 42 Hounsfield units and the spleen is 91 Hounsfield units in the arterial phase. Gallbladder and bile ducts: Unremarkable. No calcified stones. No ductal dilation. Pancreas: Unremarkable. No mass. No ductal dilation. Spleen: Normal. No splenomegaly. Adrenals: Normal. No mass. Kidneys and ureters: Normal. No mass. Stomach and bowel: Unremarkable. No obstruction. No mucosal thickening. Appendix: A normal appendix is seen. Bladder: Unremarkable. No mass. Reproductive: There is mild prostatic enlargement. Intraperitoneal space: Unremarkable. No free air. No significant fluid collection. Lymph nodes: No lymphadenopathy. Bones/joints: No acute fracture. No dislocation. Soft tissues: Unremarkable. IMPRESSION: 1. Probable fatty infiltration of the liver. 2. Downward hook of the proximal celiac artery with mild proximal stenosis suggesting a median arcuate ligament. 3. Occlusion of the right external iliac artery proximally with reconstitution of the left common femoral artery through hypogastric branches. The remaining right lower extremity runoff is slightly smaller than the left but remains patent. There is fading of contrast in the calf consistent with scanning ahead of the bolus. 4. Occlusion of the left internal iliac artery with reconstitution a short distance from the origin. Left lower extremity runoff is otherwise within normal limits with scanning ahead of the bolus in the calf. 5. Mild prostatic enlargement. Electronically signed by: Sushant Mesa On 10/04/2020 21:14:21 PM
--- NOTE | 2020-10-04 21:28 | ECGEPIP ---
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
[2020-10-04 21:40] VITALS: BP 122/81
[2020-10-05] MEDS: NS 1,000 ML IV SCH ×4 (02:04→22:54)
[2020-10-05 06:00] VITALS: BP 128/84
[2020-10-05] MEDS: HumaLOG INSULIN (NovoLOG) PER UNIT SC SCH ×4 (06:00→17:53)
[2020-10-05 06:15] LABS: BASO % 0.3 % (0.0-1.0); EOS % 0.1 % (0.0-3.0); HEMATOCRIT 34.9 % (42.0-52.0); HEMOGLOBIN 11.9 g/dl (13.5-17.5); LYMPH # 3.8 10^3/uL (1.5-5.0); LYMPH % 29.3 % (24.0-44.0); MEAN CORPUSCULAR HEMOGLOBIN 30.9 pg (27.0-33.0); MEAN CORPUSCULAR HGB CONC 34.1 g/dl (32.0-36.5); MEAN CORPUSCULAR VOLUME 90.6 fl (80.0-96.0); MONO # 1.2 10^3/uL (0.0-0.8); MONO % 9.6 % (2.0-8.0); NEUTROPHILS # 7.8 10^3/uL (1.5-8.5); NEUTROPHILS % 60.2 % (36.0-66.0); PLATELET COUNT, AUTOMATED 225 10^3/uL (150-450); RED BLOOD COUNT 3.85 10^6/uL (4.30-6.10); WHITE BLOOD COUNT 12.9 10^3/uL (4.0-10.0)
[2020-10-05 06:45] LABS: BLOOD UREA NITROGEN 24 MG/DL (7-18); CALCIUM LEVEL 8.7 MG/DL (8.5-10.1); CARBON DIOXIDE LEVEL 24 MEQ/L (21-32); CHLORIDE LEVEL 102 MEQ/L (98-107); CREATININE FOR GFR 1.06 MG/DL (0.70-1.30); GLOMERULAR FILTRATION RATE > 60.0 (>60); GLUCOSE, FASTING 158 MG/DL (70-100); POTASSIUM SERUM 4.6 MEQ/L (3.5-5.1); SODIUM LEVEL 135 MEQ/L (136-145)
[2020-10-05] MEDS ORDERED: LEVEMIR (INSULIN DETEMIR) 1 UNITS/0.01ML SC SCH ×2 (09:00→21:00)
[2020-10-05] MEDS: NICOTINE 14 MG/24 HR TRANSDERMAL TD SCH (09:28)
[2020-10-05] MEDS: ASPIRIN 81 MG CHEW TABLET PO SCH (09:28)
[2020-10-05] MEDS: predniSONE 10 MG TAB PO SCH (09:28)
[2020-10-05] MEDS: amLODIPine 5 MG TAB PO SCH (09:29)
[2020-10-05] MEDS: atenoloL 50 MG TAB PO SCH (09:29)
[2020-10-05] MEDS ORDERED: ISOVUE-300 61% 50ML VIAL As Ordered ONE (09:45)
[2020-10-05] MEDS ORDERED: LIDOCAINE 1% MDV 20ML VIAL As Ordered ONE (09:45)
[2020-10-05] MEDS ORDERED: fentaNYL 100 MCG/2 ML INJECTION (J3010) As Ordered ONE (10:46)
[2020-10-05] MEDS ORDERED: MIDAZOLAM INJ 2MG/2ML VIAL (J2250 PER 1MG) As Ordered ONE (10:47)
[2020-10-05 12:25] VITALS: BP 127/81
--- NOTE | 2020-10-05 12:46 | ROOPDOC ---
[facility] Report Of Operation Report of Operation DATE OF PROCEDURE: 10/05/20 PREPROCEDURE DIAGNOSES: Right External Iliac Artery thromboembolism POSTPROCEDURE DIAGNOSES: Right external iliac artery thromboembolism. PROCEDURE PERFORMED: Right external iliac artery thrombectomy and right leg angiogram. SURGEON: Shady Bassett MD ANESTHESIA: Local and sedation. ESTIMATED BLOOD LOSS: Approximately 175 mL. COMPLICATIONS: None. FINDINGS: Acute and chronic clot SPECIMENS REMOVED: Acute on chronic clot DESCRIPTION OF PROCEDURE: Patient was brought to the angio suite and placed on the IR table in supine position. Patient was prepped and draped in standard surgical fashion. After a timeout was performed patient was administered sedation and local anesthetic at the right groin puncture site. Under ultrasound guidance, percutaneous entry into the right common femoral artery was performed with a micropuncture needle. Over guidewire exchange micro sheath was inserted and subsequently exchanged to a 5 Pashto sheath. Digital subtraction angiography revealed complete occlusion of the right external iliac artery. The 5 Pashto sheath was exchanged for an 8 Pashto sheath. A cat8 penumbra thrombectomy catheter was then placed through the sheath and aspiration of the occluded external iliac artery was performed. Digital subtraction angiography revealed some residual clot and another pass was performed. Digital subtraction angiography revealed a patent aorta bilateral common iliac arteries patent right internal and external iliac arteries. Digital subtraction angiography of the right leg was then performed and revealed patent SFA, profunda femoris, popliteal artery, posterior tibial artery, peroneal artery, a patent but sev erely diseased anterior tibial artery which was small in caliber, and flow into the foot. No further intervention was required. A Perclose pro glide closure device was used at the puncture site. Sterile dressing was placed patient transferred to the recovery area. SHADY BASSETT MD Oct 05, 2020 12:46
[2020-10-05 12:58] VITALS: BP 126/80
[2020-10-05] MEDS: HEPARIN DRIP 25,000 UNITS in IV 1 EA IV SCH (13:18)
[2020-10-05 14:00] VITALS: BP 139/89
--- NOTE | 2020-10-05 14:14 | IPNPDOC ---
Text Note Date of Service The patient was seen on 10/05/20. NOTE Subjective: I saw the patient when he returned from operation room. Patient tolerated procedure well Objective: GENERAL APPEARANCE: NAD HEENT: no scleral icterus, no JVD, EOMI CARDIOVASCULAR: S1S2 LUNGS: CTA ABDOMEN: soft & not tender w palpation MUSCULOSKELETAL: Right foot cold, no palpable pulsations present, DTR +2 INTEGUMENT: no generalized pallor NEUROLOGICAL: cranial nerve function from 2-12 intact i, follows commands, speech not dysarthric Assessment /plan Patient is 45 years old male with past medical history of COPD not oxygen or steroid dependent, still actively smoking cigarettes 1 pack of cigarettes every 3 days, follows with pulmonary associates, obstructive sleep apnea with nocturnal PAP, type 1 diabetes, hypertension dyslipidemia presented to emergency room with 2-week history of worsening right lateral thigh pain and right foot pain. Right foot pain/PVD Patient was found to have Right External Iliac Artery thromboembolism. Digital subtraction angiography revealed complete occlusion of the right external iliac artery Dr. Bassett performed right external iliac artery thrombectomy and right leg angiogram. Patient was found to have patent SFA, profunda femoris, popliteal artery, posterior tibial artery, peroneal artery, a patent but severely diseased anterior tibial artery which was small in caliber, and flow into the foot. No further intervention was required Continue anticoagulation with heparin drip Will proceed with echo ALYSHA Most likely secondary to medication side effect and dehydration Resolved Type 1 diabetes Poorly controlled diabetes with HbA1c 9.8 Insulin sliding scale Detemir twice daily Follow-up with assigner in the outpatient settings ANALILIA on nocturnal PAP -Resume home nocturnal CPAP Hyperlipidemia Continue atorvastatin GERD PPI Hypertension Blood pressure currently under control Active tobacco abuse still smoking cigarettes -Tobacco cessation counseling -Nicotine patch VS,Fishbone, I+O VS, Fishbone, I+O Laboratory Tests 10/04/20 18:22 10/05/20 05:46 Vital Signs Date Time Temp Pulse Resp B/P (MAP) Pulse Ox O2 Delivery O2 Flow Rate FiO2 10/05/20 12:58 98.1 68 18 126/80 (95) 96 Room Air 10/05/20 11:40 2.0 I&O- Last 24 Hours up to 6 AM 10/05/20 06:00 Intake Total 3535 ml Output Total 4695 ml Balance -1160 ml HENRI MARTINEZ DO Oct 05, 2020 14:14
[2020-10-05 15:00] VITALS: BP 130/86
[2020-10-05] MEDS ORDERED: LEVEMIR (INSULIN DETEMIR) 1 UNITS/0.01ML SC ONE (15:00)
[2020-10-05 20:00] VITALS: BP 139/89
[2020-10-05] MEDS ORDERED: CALCIUM CARBONATE 500 MG CHEW U/D PO ONE (21:45)
[2020-10-05] MEDS ORDERED: OMEPRAZOLE 20 MG CAP PO ONE (21:45)
[2020-10-05] MEDS: ATORVASTATIN 20 MG TAB PO SCH (22:03)
[2020-10-05] MEDS: traZODone 50 MG TAB PO SCH (22:03)
[2020-10-05] MEDS: IRBESARTAN 150MG TAB PO SCH (22:04)
[2020-10-05] MEDS: PERCOCET 5MG/325MG TAB PO PRN (22:53)
[2020-10-06 06:00] VITALS: BP 138/89
[2020-10-06 06:44] LABS: BASO # 0.1 10^3/uL (0.0-0.2); BASO % 0.5 % (0.0-1.0); EOS # 0.1 10^3/uL (0.0-0.5); EOS % 0.6 % (0.0-3.0); HEMATOCRIT 32.8 % (42.0-52.0); HEMOGLOBIN 11.3 g/dl (13.5-17.5); LYMPH % 48.2 % (24.0-44.0); MEAN CORPUSCULAR HEMOGLOBIN 31.4 pg (27.0-33.0); MEAN CORPUSCULAR HGB CONC 34.5 g/dl (32.0-36.5); MEAN CORPUSCULAR VOLUME 91.1 fl (80.0-96.0); MONO # 0.9 10^3/uL (0.0-0.8); MONO % 8.9 % (2.0-8.0); NEUTROPHILS # 4.3 10^3/uL (1.5-8.5); NEUTROPHILS % 41.3 % (36.0-66.0); PLATELET COUNT, AUTOMATED 196 10^3/uL (150-450)
[2020-10-06 06:48] LABS: WHITE BLOOD COUNT 10.3 10^3/uL (4.0-10.0)
[2020-10-06 07:08] LABS: BLOOD UREA NITROGEN 19 MG/DL (7-18); CALCIUM LEVEL 8.3 MG/DL (8.5-10.1); CARBON DIOXIDE LEVEL 26 MEQ/L (21-32); CHLORIDE LEVEL 106 MEQ/L (98-107); CREATININE FOR GFR 0.94 MG/DL (0.70-1.30); GLOMERULAR FILTRATION RATE > 60.0 (>60); GLUCOSE, FASTING 121 MG/DL (70-100); POTASSIUM SERUM 3.9 MEQ/L (3.5-5.1); SODIUM LEVEL 137 MEQ/L (136-145)
[2020-10-06] MEDS: HumaLOG INSULIN (NovoLOG) PER UNIT SC SCH ×3 (07:30→16:36)
[2020-10-06] MEDS ORDERED: ISOVUE-370 76% 100ML VIAL As Ordered ONE (07:48)
[2020-10-06] MEDS ORDERED: APIXABAN 5 MG TAB (ELIQUIS) PO SCH (09:00)
--- NOTE | 2020-10-06 09:07 | REP ---
INDICATION: Emboli COMPARISON: 07/26/2020 TECHNIQUE: CT angiography of the chest after the intravenous administration of 75 cc of Isovue 370. Attention pulmonary arteries. FINDINGS: There is excellent visualization of the pulmonary arterial vasculature. Focal filling defects are present that would be considered consistent with acute pulmonary emboli. The mediastinum and pulmonary chidi are unchanged. No mass or adenopathy has developed. The mediastinum and pulmonary chidi have remained stable since 07/11/2017 CT angio chest as well. There are no pleural or pericardial effusions. Evaluation of the lung mariano again shows emphysematous changes status quo. No new abnormal nodules, masses, or opacities have developed. IMPRESSION: 1. No acute pulmonary emboli. 2. Stable chronic changes as described above. There is no evidence of acute disease. <Electronically signed by Tavo Abdalla > 10/06/20 [id number]
[2020-10-06] MEDS: LEVEMIR (INSULIN DETEMIR) 1 UNITS/0.01ML SC SCH ×2 (10:00→21:00)
[2020-10-06] MEDS: predniSONE 10 MG TAB PO SCH (10:14)
[2020-10-06] MEDS: NICOTINE 14 MG/24 HR TRANSDERMAL TD SCH (10:14)
[2020-10-06] MEDS: ASPIRIN 81 MG CHEW TABLET PO SCH (10:15)
[2020-10-06] MEDS: OMEPRAZOLE 20 MG CAP PO SCH (10:15)
[2020-10-06] MEDS: atenoloL 50 MG TAB PO SCH (10:18)
[2020-10-06] MEDS: amLODIPine 5 MG TAB PO SCH (10:18)
--- NOTE | 2020-10-06 10:18 | REP ---
INDICATION: parethesia with decrease pulse DP. COMPARISON: Comparison duplex sonography September 17, 2019. Comparison CT angiography October 04, 2020 on 05 October 2020, the patient underwent vascular intervention right external iliac artery thrombectomy or thrombolysis.... TECHNIQUE: Bilateral lower extremity arterial Doppler sonography. FINDINGS: Ankle brachial indices are fairly normal at 0.86 on the right and 0.82 on the left. There is a focal dressing from yesterday's angio in the right groin. This limits evaluation of the right common femoral artery and its bifurcation. On the right lower extremity monophasic arterial Doppler waveforms are noted throughout with increased diastolic flow. Relatively slow flow velocities are observed in the SFA on the right with areas of plaquing in minimal luminal narrowing. No stenosis greater than 2-1 velocity ratio. In the right lower extremity the posterior tibial artery is the dominant vessel to the foot with slow flow in the anterior tibial artery. In the left lower extremity interval thickening and soft plaquing is visible. No high-grade stenosis is seen. Relatively slow flow in the anterior tibial artery is noted on the left as well. 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 Monophasic arterial waveforms right lower extremity. Relatively slow flow in the distal anterior tibial arteries bilaterally. <Electronically signed by Geovanny De Anda > 10/06/20 1017
--- NOTE | 2020-10-06 10:51 | IPNPDOC ---
Subjective Date Seen The patient was seen on 10/06/20. Subjective Chief Complaint/HPI Resting in bed comfortably. No acute events overnight. Objective Physical Examination General Exam: Positive: Alert, Cooperative Neck Exam: Positive: Supple; Negative: JVD Chest Exam: Positive: Clear to auscultation, Normal air movement Heart Exam: Positive: Rate Normal Abdomen Exam: Positive: Normal bowel sounds, Soft, Tenderness Extremity Exam: Positive: Other (right groin soft, no hematoma, dressing c/d/i, 1+ dp, weakly palp pt, foot warm) RAD Interpretation STUDY: CT Chest (No thoracic aneurysm or clot formation) Assessment /Plan Assessment 45-year-old gentleman with right external iliac artery thrombosis status post right external iliac artery thrombectomy. Doing well in the postoperative. Patient still has left internal iliac artery occlusion most likely thromboembolic phenomena, etiology of embolism unknown at this time. CT scan of thoracic aorta negative for aneurysms and clot formation. Arterial duplex of bilateral lower extremity shows good flow to the foot. 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 Awaiting VAISHNAVI to rule out cardiac etiology of thromboembolisms. Patient to continue on p.o. anticoagulation. Patient can follow-up in the office as an outpatient 2 weeks after discharge. Plan/VTE VTE Prophylaxis Ordered?: Yes VS, I&O, 24H, Fishbone Vital Signs/I&O Vital Signs Date Time Temp Pulse Resp B/P (MAP) Pulse Ox O2 Delivery O2 Flow Rate FiO2 10/06/20 10:18 83 116/78 10/06/20 06:00 97.7 18 98 Room Air 10/05/20 13:35 0.0 I&O- Last 24 Hours up to 6 AM 10/06/20 05:59 Intake Total 960 ml Output Total 1825 ml Balance -865 ml Laboratory Data 24H LABS Laboratory Tests 2 10/05/20 12:15: Bedside Glucose (Misc Panel) 143H 10/05/20 13:32: Activated Partial Thromboplast Time 60.4H 10/05/20 17:06: Bedside Glucose (Misc Panel) 250H 10/05/20 20:48: Bedside Glucose (Misc Panel) 239H 10/05/20 21:59: Activated Partial Thromboplast Time 156.5*H 10/06/20 06:19: Activated Partial Thromboplast Time 86.4H, Immature Granulocyte % (Auto) 0.5, Neutrophils (%) (Auto) 41.3, Lymphocytes (%) (Auto) 48.2H, Monocytes (%) (Auto) 8.9H, Eosinophils (%) (Auto) 0.6, Basophils (%) (Auto) 0.5, Neutrophils # (Auto) 4.3, Lymphocytes # (Auto) 5.0, Monocytes # (Auto) 0.9H, Eosinophils # (Auto) 0.1, Basophils # (Auto) 0.1, Nucleated Red Blood Cells % (auto) 0.0, Anion Gap 5L, Glomerular Filtration Rate > 60.0, Calcium Level 8.3L CBC/BMP Laboratory Tests 10/06/20 06:19 SHADY LOCO MD Oct 06, 2020 10:51
--- NOTE | 2020-10-06 13:51 | IPNPDOC ---
Text Note Date of Service The patient was seen on 10/06/20. NOTE Subjective: In the morning patient developed bleeding from femoral artery, the area minor, subsequently stopped after the pressure was placed and discontinuation of heparin drip Objective: GENERAL APPEARANCE: NAD HEENT: no scleral icterus, no JVD, EOMI CARDIOVASCULAR: S1S2 LUNGS: CTA ABDOMEN: soft & not tender w palpation MUSCULOSKELETAL: Right foot cold, no palpable pulsations present, DTR +2 INTEGUMENT: no generalized pallor NEUROLOGICAL: cranial nerve function from 2-12 intact i, follows commands, speech not dysarthric Assessment /plan Patient is 45 years old male with past medical history of COPD not oxygen or steroid dependent, still actively smoking cigarettes 1 pack of cigarettes every 3 days, follows with pulmonary associates, obstructive sleep apnea with nocturnal PAP, type 1 diabetes, hypertension dyslipidemia presented to emergency room with 2-week history of worsening right lateral thigh pain and right foot pain. Right foot pain/PVD Patient was found to have Right External Iliac Artery thromboembolism. Digital subtraction angiography revealed complete occlusion of the right external iliac artery Dr. Bassett performed right external iliac artery thrombectomy and right leg angiogram. Patient was found to have patent SFA, profunda femoris, popliteal artery, posterior tibial artery, peroneal artery, a patent but severely diseased anterior tibial artery which was small in caliber, and flow into the foot. No further intervention was required start Eliquis in the evening due to femoral artery bleed in the morning Will proceed with echo ALYSHA Most likely secondary to medication side effect and dehydration Resolved Type 1 diabetes Poorly controlled diabetes with HbA1c 9.8 Insulin sliding scale Detemir twice daily Follow-up with transit worker in the outpatient settings ANALILIA on nocturnal PAP -Resume home nocturnal CPAP Hyperlipidemia Continue atorvastatin GERD PPI Hypertension Blood pressure currently under control Active tobacco abuse still smoking cigarettes -Tobacco cessation counseling -Nicotine patch VS,Fishbone, I+O VS, Fishbone, I+O Laboratory Tests 10/06/20 06:19 Vital Signs Date Time Temp Pulse Resp B/P (MAP) Pulse Ox O2 Delivery O2 Flow Rate FiO2 10/06/20 10:18 83 116/78 10/06/20 10:05 0.0 10/06/20 06:00 97.7 18 98 Room Air I&O- Last 24 Hours up to 6 AM 10/06/20 06:00 Intake Total 1560 ml Output Total 2400 ml Balance -840 ml HENRI MARTINEZ DO Oct 06, 2020 13:51
[2020-10-06 14:00] VITALS: BP 126/86
[2020-10-06] MEDS ORDERED: HumaLOG INSULIN (NovoLOG) PER UNIT SC SCH (21:00)
[2020-10-06 22:00] VITALS: BP 103/63
[2020-10-06] MEDS: APIXABAN 5 MG TAB (ELIQUIS) PO SCH (22:04)
[2020-10-06] MEDS: traZODone 50 MG TAB PO SCH (22:06)
[2020-10-06] MEDS: IRBESARTAN 150MG TAB PO SCH (22:06)
[2020-10-06] MEDS: PERCOCET 5MG/325MG TAB PO PRN (22:07)
[2020-10-06] MEDS: ATORVASTATIN 20 MG TAB PO SCH (22:07)
[2020-10-07 06:00] VITALS: BP 101/63
[2020-10-07 06:47] LABS: BASO # 0.1 10^3/uL (0.0-0.2); BASO % 0.5 % (0.0-1.0); EOS # 0.1 10^3/uL (0.0-0.5); EOS % 0.6 % (0.0-3.0); HEMATOCRIT 32.7 % (42.0-52.0); HEMOGLOBIN 11.4 g/dl (13.5-17.5); LYMPH # 3.8 10^3/uL (1.5-5.0); LYMPH % 39.6 % (24.0-44.0); MEAN CORPUSCULAR HEMOGLOBIN 31.2 pg (27.0-33.0); MEAN CORPUSCULAR HGB CONC 34.9 g/dl (32.0-36.5); MEAN CORPUSCULAR VOLUME 89.6 fl (80.0-96.0); MONO % 9.9 % (2.0-8.0); NEUTROPHILS # 4.7 10^3/uL (1.5-8.5); NEUTROPHILS % 48.8 % (36.0-66.0); PLATELET COUNT, AUTOMATED 203 10^3/uL (150-450); RED BLOOD COUNT 3.65 10^6/uL (4.30-6.10); WHITE BLOOD COUNT 9.6 10^3/uL (4.0-10.0)
[2020-10-07 07:07] LABS: BLOOD UREA NITROGEN 15 MG/DL (7-18); CALCIUM LEVEL 8.9 MG/DL (8.5-10.1); CARBON DIOXIDE LEVEL 30 MEQ/L (21-32); CHLORIDE LEVEL 103 MEQ/L (98-107); GLOMERULAR FILTRATION RATE > 60.0 (>60); GLUCOSE, FASTING 183 MG/DL (70-100); POTASSIUM SERUM 3.9 MEQ/L (3.5-5.1); SODIUM LEVEL 135 MEQ/L (136-145)
[2020-10-07] MEDS ORDERED: ELIQ5TAB PO (07:39)
[2020-10-07] MEDS: LEVEMIR (INSULIN DETEMIR) 1 UNITS/0.01ML SC SCH (08:29)
[2020-10-07] MEDS: HumaLOG INSULIN (NovoLOG) PER UNIT SC SCH (08:29)
[2020-10-07] MEDS: NICOTINE 14 MG/24 HR TRANSDERMAL TD SCH (08:30)
[2020-10-07] MEDS: predniSONE 10 MG TAB PO SCH (08:30)
[2020-10-07] MEDS: ASPIRIN 81 MG CHEW TABLET PO SCH (08:31)
[2020-10-07] MEDS: OMEPRAZOLE 20 MG CAP PO SCH (08:31)
[2020-10-07] MEDS: APIXABAN 5 MG TAB (ELIQUIS) PO SCH (08:31)
[2020-10-07 09:00] VITALS: BP 106/64
[2020-10-07] MEDS: atenoloL 50 MG TAB PO SCH (09:00)
[2020-10-07] MEDS: amLODIPine 5 MG TAB PO SCH (09:00)
[2020-10-07] MEDS ORDERED: QC A650T3 PO (10:06)
--- NOTE | 2020-10-07 13:29 | DS.PDOC ---
Discharge Summary General Date of Admission Oct 04, 2020 at 01:08 Date of Discharge 10/07/20 Discharge Summary PROCEDURES PERFORMED DURING STAY: right external iliac artery thrombectomy and right leg angiogram ADMITTING DIAGNOSES: Right foot pain/PVD ALYSHA Type 1 diabetes ANALILIA on nocturnal PAP Hyperlipidemia GERD Hypertension Active tobacco abuse DISCHARGE DIAGNOSES: Right foot pain/PVD ALYSHA Type 1 diabetes ANALILIA on nocturnal PAP Hyperlipidemia GERD Hypertension Active tobacco abuse Right External Iliac Artery thromboembolism COMPLICATIONS/CHIEF COMPLAINT: Numbess In Legs. HISTORY OF PRESENT ILLNESS: Patient is 45 years old male with past medical history of COPD not oxygen or steroid dependent, still actively smoking cigarettes 1 pack of cigarettes every 3 days, follows with pulmonary associates, obstructive sleep apnea with nocturnal PAP, type 1 diabetes, hypertension dyslipidemia presented to emergency room with 2-week history of worsening right lateral thigh pain and right foot pain. HOSPITAL COURSE: During the hospital stay the following issues addressed Right foot pain/PVD Patient was found to have Right External Iliac Artery thromboembolism. Digital subtraction angiography revealed complete occlusion of the right external iliac artery Dr. Bassett performed right external iliac artery thrombectomy and right leg angiogram. Patient was found to have patent SFA, profunda femoris, popliteal artery, posterior tibial artery, peroneal artery, a patent but severely diseased anterior tibial artery which was small in caliber, and flow into the foot. No further intervention was required start Eliquis in the evening due to femoral artery bleed in the morning Patient will need to discuss VAISHNAVI with shank pinner. ALYSHA Most likely secondary to medication side effect and dehydration Resolved Type 1 diabetes Poorly controlled diabetes with HbA1c 9.8 Insulin sliding scale Detemir twice daily Follow-up with field consultant in the outpatient settings ANALILIA on nocturnal PAP -Resume home nocturnal CPAP Hyperlipidemia Continue atorvastatin GERD PPI Hypertension Blood pressure currently under control Active tobacco abuse still smoking cigarettes -Tobacco cessation counseling -Nicotine patch DISCHARGE MEDICATIONS: Please see below. ALLERGIES: Please see below. PHYSICAL EXAMINATION ON DISCHARGE: VITAL SIGNS: Please see below. GENERAL APPEARANCE: NAD HEENT: no scleral icterus, no JVD, EOMI CARDIOVASCULAR: S1S2 LUNGS: CTA ABDOMEN: soft & not tender w palpation MUSCULOSKELETAL: Right foot cold, no palpable pulsations present, DTR +2 INTEGUMENT: no generalized pallor NEUROLOGICAL: cranial nerve function from 2-12 intact i, follows commands, speech not dysarthric LABORATORY DATA: Please see below. IMAGING: [facility] NAME: PINKY CANNON DATE OF : 1975 AGE: 45 SEX: M REPORT #: [id number] ROOM: M [facility] TECHNOLOGIST: RATNA DOCTOR: HENRI MARTINEZ DO Ordered for Date&Time: 10/06/20722 cc: [~ rep ct ivnm] Service Date&Time: 10/06/20815 This report is in Signed status. If this report is in a DRAFT status it has not yet been reviewed by the radiologist for accuracy. Thank you for having your radiology procedures performed at [facility] RADIOLOGY REPORT Date&Time printed: [~ rep prt dt last] [~ rep prt tm last] Page 2 of 2 [place] [address] RADIOLOGY REPORT This report is in Signed status. If this report is in a DRAFT status it has not yet been reviewed by the radiolo gist for accuracy. Thank you for having your radiology procedures performed at [facility] RADIOLOGY REPORT Date&Time printed: [~ rep prt dt last] [~ rep prt tm last] Page 1 of 1 [place] COMPARISON: 07/26/2020 TECHNIQUE: CT angiography of the chest after the intravenous administration of 75 cc of Isovue 370. Attention pulmonary arteries. FINDINGS: There is excellent visualization of the pulmonary arterial vasculature. Focal filling defects are present that would be considered consistent with acute pulmonary emboli. The mediastinum and pulmonary chidi are unchanged. No mass or adenopathy has developed. The mediastinum and pulmonary chidi have remained stable since 07/11/2017 CT angio chest as well. There are no pleural or pericardial effusions. Evaluation of the lung mariano again shows emphysematous changes status quo. No new abnormal nodules, masses, or opacities have developed. IMPRESSION: 1. No acute pulmonary emboli. 2. Stable chronic changes as described above. There is no evidence of acute disease. <Electronically signed by Tavo Abdalla > 10/06/20903 DD: Tavo Abdalla MD, DO 10/06/20847 DT: SUZY 10/06/20903 DS: JEFFERY 10/06/2084710/06/20847 [~ rep ct labl] PROGNOSIS: Fair ACTIVITY: [As tolerated]. DIET: Cardiac DISPOSITION: Home, Self-Care. DISCHARGE INSTRUCTIONS: Follow-up with vascular surgeon Dr. Bassett in 2 weeks, follow-up with field consultant Dr. De La Rosa in 1 week, follow-up with shank pinner Dr. Bliss for possible VAISHNAVI, follow-up with PCP in 3 to 5 days DISCHARGE CONDITION: [Stable]. TIME SPENT ON DISCHARGE: 40 minutes. Vital Signs/I&Os Vital Signs Date Time Temp Pulse Resp B/P (MAP) Pulse Ox O2 Delivery O2 Flow Rate FiO2 10/07/20 09:00 73 106/64 10/07/20 06:00 97.9 18 98 Room Air 10/06/20 10:05 I&O- Last 24 Hours up to 6 AM 10/07/20 05:59 Intake Total 2040 ml Output Total 2450 ml Balance -410 ml Laboratory Data Labs 24H Laboratory Tests 2 10/06/20 16:13: Bedside Glucose (Misc Panel) 319H 10/06/20 21:49: Bedside Glucose (Misc Panel) 267H 10/07/20 06:10: Immature Granulocyte % (Auto) 0.6, Neutrophils (%) (Auto) 48.8, Lymphocytes (%) (Auto) 39.6, Monocytes (%) (Auto) 9.9H, Eosinophils (%) (Auto) 0.6, Basophils (%) (Auto) 0.5, Neutrophils # (Auto) 4.7, Lymphocytes # (Auto) 3.8, Monocytes # (Auto) 1.0H, Eosinophils # (Auto) 0.1, Basophils # (Auto) 0.1, Nucleated Red Blood Cells % (auto) 0.0, Anion Gap 2L, Glomerular Filtration Rate > 60.0, Calcium Level 8.9 CBC/BMP Laboratory Tests 10/07/20 06:10 FSBS Laboratory Tests Test 10/06/20 16:13 10/06/20 21:49 Range/Units Bedside Glucose (Misc Panel) 319 267 70-105 MG/DL Microbiology Microbiology 10/06/20 Stool Occult Blood (FORREST) - Final, Complete Discharge Medications Scheduled Amlodipine Besylate (Amlodipine Besylate) 5 Mg Tablet, 5 MG PO DAILY, (Reported) Apixaban (Eliquis) 5 Mg Tablet, 5 MG PO BID Atenolol (Atenolol) 100 Mg Tablet, 100 MG PO DAILY, (Reported) Atorvastatin Calcium (Atorvastatin Calcium) 40 Mg Tablet, 40 MG PO QHS, (Reported) Canagliflozin (Invokana) 100 Mg Tablet, 100 MG PO DAILY, (Reported) Celecoxib (Celecoxib) 200 Mg Capsule, 200 MG PO BID, (Reported) Ergocalciferol (Vitamin D2) (Vitamin D2) 50,000 Units Cap, 50,000 UNITS PO Q2WK, (Reported) Fluticasone/Umeclidin/Vilanter (Trelegy Ellipta 100-62.5-25) 1 Each Blst.w.dev, 1 PUFF PO DAILY, (Reported) Insulin Glargine,Hum.rec.anlog (Basaglar Kwikpen U-100) 100 Unit/1 Ml Insuln.pen, 60 UNIT SC QHS, (Reported) Insulin Lispro (Insulin Lispro Kwikpen U-100) 100 Unit/1 Ml Insuln.pen, 1 DOSE SC QID, (Reported) BEFORE MEALS AND AT BEDTIME PER SLIDING SCALE Irbesartan (Irbesartan) 300 Mg Tablet, 300 MG PO QHS, (Reported) Prednisone (Prednisone) 10 Mg Tablet, 30 MG PO DAILY, (Reported) STARTED 10/01/20 X 7 DAYS Spironolactone (Spironolactone) 25 Mg Tablet, 25 MG PO BID, (Reported) Trazodone HCl (Trazodone HCl) 50 Mg Tab, 50 MG PO QHS, (Reported) Scheduled PRN Acetaminophen (Acetaminophen 8 Hour) 650 Mg Tablet.er, 650 MG PO TID PRN for pain Dextrose (Glucose) 4 Gm Chw, 4 GM PO PRN PRN for LOW BLOOD SUGAR, (Reported) Levalbuterol Tartrate (Levalbuterol Tartrate Hfa) 15 Gm Hfa.aer.ad, 1 PUFF INH Q4H PRN for SHORTNESS OF BREATH, (Reported) Allergies Coded Allergies: No Known Allergies (Unverified , 08/04/20) HENRI MARTINEZ DO Oct 07, 2020 13:29
--- NOTE | 2020-10-09 10:58 | ECHO ---
ECHOCARDIOGRAM DATE OF PROCEDURE: 10/06/2020 Age: 45 Gender: Male Height: 72 inches Weight: 167 pounds Body Surface Area: 1.98 m2 PATIENT LOCATION: Inpatient [address] [place] [address], Room 5146. REFERRING PROVIDER: Sonny Mackay. INDICATION: Numbness in legs cardiac origin of embolic material? MEASUREMENTS: 2D Measurements: RV 4.0 cm LV 4.6 cm Septum 1.1 cm Posterior wall 1.1 cm Aortic Root 2.9 cm LA 3.1 cm LVEF 75% Doppler Measurements: AV 1.46 m/s LVOT 0.8 m/s LVOT diameter 2.1 cm MV-E 56, A 50, EA ratio 1.1 Early mitral deceleration time 280 msec E prime medial 7.5, A prime medial 10.5, E prime lateral 9 PV 1.0 m/s Pulmonary artery acceleration time 123 msec RVSP 28 mmHg IVC 1.5 cm COMMENTS: Normal sinus rhythm without intraventricular conduction disturbance. Technically challenging study possibly because of the patient's body habitus or the installation superintendent's ability. M-mode and 2-dimensional echocardiography was performed with pulse, continuous wave, color flow, and tissue Doppler studies. Normal left ventricular size, wall thickness, and hyperkinetic wall motion. Normal left atrial size and Doppler assessment of LV diastolic function and estimated mean left atrial pressure. Normal right heart chamber sizes and motion with pulmonary arterial pressure upper limits of normal. Normal IVC size and collapse against an elevated central venous pressure. Normal aortic dimensions. The aortic cusps were very fuzzy, not well visualized, but there was no functional valvular abnormality. There still appeared to be three equal sized cusps. The mitral valvular apparatus appeared to be normal with no apparent valvular dysfunction. Normal appearing tricuspid valve with mild insufficiency (physiologic). Unfortunately, image quality was not sufficient to rule out vegetation or intracardiac mass, but none was visualized. No pericardial effusion. A saline contrast study was performed from the apical four chamber projection with one example of agitated saline given bolus opacifying the right heart chambers adequately with no visualization of contrast in the left ventricle, but the left atrium was not clearly visualized. If the cardiac source of embolic material is seriously suspect, we would recommend a transesophageal echocardiogram. [facility]
== END 2020-10-07 12:15 | disposition home or self-care (01) | DRG 169 ==
LOC: M ED 01:07 → M ED INP 01:08 → ENRESERV 06:25 → M MS5PR 07:50
PROVIDERS: ADMIT General Practice; ATTEND Internal Medicine
PROC: B40FYZZ Plain Radiography of Right Lower Extremity Arteries using Other Contrast (ICD-10-PCS; 2020-10-05)
PROC: 04CH3ZZ Extirpation of Matter from Right External Iliac Artery, Percutaneous Approach (ICD-10-PCS; principal; 2020-10-05 10:00)
DX: I74.5 Embolism and thrombosis of iliac artery (principal); N17.9 Acute kidney failure, unspecified; E10.51 Type 1 diabetes mellitus with diabetic peripheral angiopathy without gangrene; E10.65 Type 1 diabetes mellitus with hyperglycemia; J44.9 Chronic obstructive pulmonary disease, unspecified; I70.201 Unspecified atherosclerosis of native arteries of extremities, right leg; E86.0 Dehydration; F17.210 Nicotine dependence, cigarettes, uncomplicated; G47.33 Obstructive sleep apnea (adult) (pediatric); I10 Essential (primary) hypertension; E78.5 Hyperlipidemia, unspecified; G43.909 Migraine, unspecified, not intractable, without status migrainosus; K21.9 Gastro-esophageal reflux disease without esophagitis; Z20.822 Contact with and (suspected) exposure to COVID-19; Z86.16 Personal history of COVID-19; Z79.82 Long term (current) use of aspirin; Z79.52 Long term (current) use of systemic steroids; Z79.899 Other long term (current) drug therapy; Z79.4 Long term (current) use of insulin

== ENCOUNTER → 2020-10-10 | Outpatient (CLI) | payer OTHER ==
[~2020-10-10] MED LIST changes: +CELE1CAP9 PO; +ELIQ5TAB PO; +LEVA45AE INH; +PRED10TA2 PO; +QC A650T3 PO
== END ==
LOC: M SLEEP 08:12
PROVIDERS: ATTEND Physician Assistant Medical
DX: R55 Syncope and collapse (principal)